=== PATIENT | female | born 1970 | race Caucasian/White ===

== ENCOUNTER → 2020-04-29 10:35 | Outpatient (CLI) | payer BC, SELFPAY ==
--- NOTE | ~2020-04-29 | MM_ITS ---
EXAMINATION: MM screening ludivina BI w dolores HISTORY: Screening mammogram TECHNIQUE: Craniocaudal and mediolateral oblique 3-D tomosynthesis images were obtained and synthetic 2-D images were generated. CAD analysis was submitted and interpreted. COMPARISON: 12/12/2018, 12/05/2017 bilateral digital screening mammogram examinations 05/07/2017 diagnostic right digital mammogram and complete right breast ultrasound BREAST PARENCHYMAL COMPOSITION: There are scattered areas of fibroglandular density. FINDINGS: There is no evidence of suspicious mass, calcification, or architectural distortion to sugg est malignancy in either breast. There has been no suspicious interval change. IMPRESSION: 1. No mammographic evidence of malignancy. 2. Recommend routine screening mammography in one year. BI-RADS Category 1: Negative Reviewed, dictated and finalized at location A.
== END ==
PROVIDERS: Visit Provider Nurse Practitioner
DX: Z12.31 Encounter for screening mammogram for malignant neoplasm of breast (principal)
CPT/HCPCS: 77063; 77067

== ENCOUNTER → 2021-05-12 13:34 | Outpatient (CLI) | payer OTHER, SELFPAY ==
--- NOTE | ~2021-05-12 | MM_ITS ---
EXAMINATION: MM screening ludivina BI w dolores HISTORY: Screening TECHNIQUE: Craniocaudal and mediolateral oblique 3-D tomosynthesis images were obtained and synthetic 2-D images were generated. CAD analysis was submitted and interpreted. COMPARISON: Comparison to multiple prior studies sequentially, with oldest reviewed study dated 11/08. BREAST PARENCHYMAL COMPOSITION: The breasts are heterogenously dense, which may obscure small masses FINDINGS: There is no evidence of suspicious mass, calcification, or architectural distortion to sugg est malignancy in either breast. There has been no suspicious interval change. IMPRESSION: 1. No mammographic evidence of malignancy. 2. Recommend routine screening mammography in one year. BI-RADS Category 1: Negative Reviewed, dictated and finalized at location A.
== END ==
PROVIDERS: PCP Family Medicine; Visit Provider Nurse Practitioner
DX: Z12.31 Encounter for screening mammogram for malignant neoplasm of breast (principal)
CPT/HCPCS: 77063; 77067

== ENCOUNTER → 2022-06-15 13:09 | Outpatient (CLI) | payer OTHER, SELFPAY ==
--- NOTE | ~2022-06-15 | MM_ITS ---
EXAMINATION: MM screening ludivina BI w dolores HISTORY: Screening TECHNIQUE: Craniocaudal and mediolateral oblique 3-D tomosynthesis images were obtained and synthetic 2-D images were generated. CAD analysis was submitted and interpreted. COMPARISON: Comparison to multiple prior studies sequentially, with oldest reviewed study dated 05/07. BREAST PARENCHYMAL COMPOSITION: The breasts are heterogeneously dense, which may obscure small masses FINDINGS: There is no evidence of suspicious mass, calcification, or architectural distortion to sugg est malignancy in either breast. There has been no suspicious interval change. IMPRESSION: 1. No mammographic evidence of malignancy. 2. Recommend routine screening mammography in one year. BI-RADS Category 1: Negative Reviewed, dictated and finalized at location A.
== END ==
PROVIDERS: PCP Family Medicine; Visit Provider Nurse Practitioner
DX: Z12.31 Encounter for screening mammogram for malignant neoplasm of breast (principal)
CPT/HCPCS: 77063; 77067

== ENCOUNTER → 2023-05-10 09:08 | Outpatient (CLI) | payer OTHER, SELFPAY ==
--- NOTE | ~2023-05-10 | MMUS_ITS ---
EXAMINATION: MM diagnostic ludivina BI w dolores, US breast RT complete HISTORY: Right upper outer quadrant breast thickening TECHNIQUE: Bilateral full field and right spot compression ML, MLO and CC 3-D tomosynthesis images we re performed and synthetic 2-D images were generated. CAD analysis was submitted and interpreted. Hig h resolution complete right breast ultrasound examination including all 4 quadrants and subareolar ar ea was performed. COMPARISON: 06/2022, 05/12/2021, 04/29/2020 bilateral screening mammogram examinations BREAST PARENCHYMAL COMPOSITION: The breasts are heterogeneously dense, which may obscure small masses . FINDINGS: MAMMOGRAPHIC FINDINGS:, Probably benign. Six-month targeted right breast ultrasound follow-up is bailey mmended. Subareolar area: Approximately 2 x 4.5 mm simple cyst Chronic mild fibroglandular asymmetry. Chronic punctate and small circular microcalcifications, prima rily on the right. No malignant calcification is evident. No suspicious mass or architectural distort ion or significant new or developing density is detected. ULTRASOUND: There is no evidence of suspicious mass or shadowing in the area of clinical complaint of thickening at 10:00--11:00 8 cm from the nipple, upper outer quadrant. 8:00 7 cm from nipple: Circumscribed 3.7 x 3.3 mm hypoechoic lesion without internal vascularity or p osterior shadowing IMPRESSION: 1. Probably benign findings 2. Six-month targeted right breast ultrasound follow-up 8:00 7 cm from nipple is recommended BI-RADS category 3, probably benign findings. Reviewed, dictated and finalized at location A. IMPRESSION: 1. Probably benign findings 2. Six-month targeted right breast ultrasound follow-up 8:00 7 cm from nipple i s recommended BI-RADS category 3, probably benign findings.
== END ==
PROVIDERS: PCP Family Medicine; Visit Provider Nurse Practitioner
DX: N63.10 Unspecified lump in the right breast, unspecified quadrant (principal); R92.8 Other abnormal and inconclusive findings on diagnostic imaging of breast
CPT/HCPCS: 76641; 77062; 77066; G0279

== ENCOUNTER → 2023-08-30 09:56 | Outpatient (CLI) | payer OTHER, SELFPAY ==
--- NOTE | ~2023-08-30 | DEXA_ITS ---
Bone Density Report Name: Kimberly Mixon Age: 53 Sex: Female Ethnicity: White Date of : 1970 Indication: postmenopausal; screening for osteoporosis; hysterectomy; Referring Provider: YANDY, PIERO Crockett Study: Bone densitometry was performed. Exam Date: August 30, 2023 Accession number: [id number] Bone Density: Region BMD T-score Z-score Classification AP Spine (L1, L4) 1.152 1.0 1.9 Normal Femoral Neck (Left) 0.855 0.1 0.9 Normal Total Hip (Left) 0.924 -0.1 0.4 Normal Femoral Neck (Right) 0.795 -0.5 0.4 Normal Total Hip (Right) 0.928 -0.1 0.4 Normal Total Hip Mean 0.926 -0.1 0.4 Normal World Health Organization criteria for BMD impression classify patients as: Normal (T-score at or above -1.0), Osteopenia (T-score between -1.0 and -2.5), or Osteoporosis (T-score at or below -2.5). 10-year Fracture Risk: FRAX not reported because: All T-scores for Spine Total, Hip Total, Femoral Neck at or above -1.0 Clinical Information Provided by Patient: Has used the following medications: HRT (i.e. estrogen/hormone therapy), HOLLIEV Has the following medical conditions: Hysterectomy Patient maximum height was 65 Menopause Age: 33 Onset of menses at age 16 Number of children 2 Missed period for more than 6 months in a row Impression: The patient has normal bone mass. Discussion: BONE DENSITY IS ABOVE THE MINIMUM DESIRABLE LEVEL AT ALL SKELETAL SITES TESTED. This patient?s bone mineral density is above the minimum desirable level (T-score -1.0 or better) at all sites measured. The patient should follow a healthful lifestyle (good nutrition with adequate calcium and vitamin D, and appropriate weight-bearing exercise). Follow-Up: Consider repeating this study in 5 years or sooner if there is some new clinical indication. Reported by: ANJEL on 08/30/2023 11:36:00 AM. Reviewed, dictated and finalized at location ATristan BERGERON
== END ==
PROVIDERS: PCP Nurse Practitioner; Visit Provider Nurse Practitioner
DX: Z13.820 Encounter for screening for osteoporosis (principal); Z78.0 Asymptomatic menopausal state
CPT/HCPCS: 77080

== ENCOUNTER 2023-11-15 09:14 | Outpatient (CLI) | payer OTHER, SELFPAY ==
--- NOTE | ~2023-11-15 | MMUS_ITS ---
EXAMINATION: MM diagnostic ludivina RT w dolores, US breast RT limited HISTORY: Palpable right breast abnormality. TECHNIQUE: Additional 3-D tomosynthesis images of the right breast were performed and synthetic 2-D i mages were generated. CAD analysis was submitted and interpreted. High resolution Limited right breas t ultrasound was performed. COMPARISON: Comparison to multiple prior studies sequentially, with oldest reviewed study dated 12/05. BREAST PARENCHYMAL COMPOSITION: Dense: The breasts are heterogeneously dense, which may obscure small masses FINDINGS: MAMMOGRAPHIC FINDINGS: There are no suspicious masses, calcifications or architectural distortion in the right breast to sug gest malignancy. ULTRASOUND: Limited right breast ultrasound: Normal heterogeneous echotexture without focal solid or cystic mass. IMPRESSION: 1. No evidence for malignancy in the right breast. 2. Routine yearly screening mammogram and regular clinical breast examination are recommended. BI-RADS Category 1: Negative Reviewed, dictated and finalized at location A. IMPRESSION: 1. No evidence for malignancy in the right breast. 2. Routine yearly screening mammogram and regular clinical breast examination a re recommended. BI-RADS Category 1: Negative
== END 2023-11-15 09:15 ==
PROVIDERS: PCP Nurse Practitioner; Visit Provider Obstetrics & Gynecology Gynecology
DX: R92.8 Other abnormal and inconclusive findings on diagnostic imaging of breast (principal)
CPT/HCPCS: 76642; 77061; 77065; G0279

== ENCOUNTER 2025-01-18 13:03 | Inpatient (IN) | payer OTHER, SELFPAY ==
[2025-01-18] VITALS (25 sets, daily range): BP systolic 86–112; BP diastolic 54–78; PULSE 98–133; RESP 12–54; TEMP 36.5–38.9; O2SAT 83–100; BMI 22.0
--- NOTE | ~2025-01-18 | XR_ITS ---
XR chest 1V portable Ordering provider: Vipul Domingo MD History: 54 years Female with . pneumonia . Comparison: January 29, 2025 FINDINGS: MEDIASTINUM: The cardiac silhouette is not enlarged. Nasogastric tube is seen extending to the area of the stomach. LUNGS: Bibasilar and perihilar pneumonia is seen. No effusions or pneumothorax. OTHER: No free air under the diaphragm. Degenerative changes of the spine. IMPRESSION: Bibasilar and perihilar pneumonia. No significant change from previous examination. Reviewed, dictated and finalized at location A. IMPRESSION: Bibasilar and perihilar pneumonia. No significant change from previous examinat ion.
--- NOTE | ~2025-01-18 | XR_ITS ---
Portable chest x-ray Comparison: None Clinical History: Shortness of breath Findings: There is patchy airspace disease the lung bases and left perihilar region. Cardiomediasti nal silhouette is stable. Bones and soft tissues are unremarkable. Impression: Patchy airspace disease at the lung bases and left perihilar region. Correlate for pulmonary edema ve rsus infection. Reviewed, dictated and finalized at location . Impression: Patchy airspace disease at the lung bases and left perihilar region. Correlate for pulmonary edema versus infection.
--- NOTE | ~2025-01-18 | XR_ITS ---
MODIFIED ESOPHAGRAM HISTORY: Reassess dysphagia prior to planned transesophageal echocardiography TECHNIQUE: Modified barium esophagram was performed on 01/29/2025. I administered fluoroscopy and perf ormed the exam with speech pathologist. Patient was seated for lateral fluoroscopic imaging for jose luis stion of thin liquids, pudding, solids and quantified amounts, followed by thin liquids in uncontroll ed amounts. This was recorded on tape. A single fluoroscopic spot image was also recorded. The DAP fo r this procedure was 2.115 Gycm2. The amount of fluoroscopy time used during this procedure was 3.4 m inutes. FINDINGS: Oral stage: Adequate function. Pharyngeal stage: Reduced laryngeal elevation and adduction. Reduced tongue base retraction and phary ngeal squeeze. There is vallecular, piriform sinus and pharyngeal wall residue. Laryngeal penetration and aspiration.. Cervical/esophageal stage: Adequate function. IMPRESSION: Pharyngeal dysphagia with laryngeal penetration and aspiration. Please correlate with sp eech pathologist findings and specific feeding recommendations. Reviewed, dictated and finalized at location B. IMPRESSION: Pharyngeal dysphagia with laryngeal penetration and aspiration. Pl ease correlate with speech pathologist findings and specific feeding recommenda tions.
--- NOTE | ~2025-01-18 | XR_ITS ---
XR chest ET placement Ordering provider: Maxi Macedo MD History: 54 years Female with . Portable . Comparison: January 18, 2025 FINDINGS: MEDIASTINUM: The cardiac silhouette is not enlarged. Endotracheal tube with the tip above the clarke by about 3.2 cm. Nasogastric tube extending to the stomach. LUNGS: No effusions or pneumothorax. Bibasilar opacification is seen suggestive of atelectasis versus pneumonia. OTHER: No free air under the diaphragm. IMPRESSION: Bilateral basal pneumonia. Pulmonary edema cannot be excluded although less likely. Reviewed, dictated and finalized at location A. IMPRESSION: Bilateral basal pneumonia. Pulmonary edema cannot be excluded although less lik anette.
--- NOTE | ~2025-01-18 | XR_ITS ---
Portable chest x-ray Comparison: 01/19/2025 Clinical History: Respiratory failure Findings: Endotracheal tube, NG tube, and right IJ line remain in place. Extensive bilateral pulmona ry consolidation present, sparing the lung apices. Possible minimal left pleural effusion. Cardiomed iastinal silhouette is stable. Bones and soft tissues are unremarkable. Impression: Extensive bilateral airspace consolidation. Correlate for pulmonary edema versus bilateral pneumonia. Minimal left pleural effusion. Stable support tubes. Reviewed, dictated and finalized at [facility]. Impression: Extensive bilateral airspace consolidation. Correlate for pulmonary edema versu s bilateral pneumonia. Minimal left pleural effusion. Stable support tubes.
--- NOTE | ~2025-01-18 | MR_ITS ---
EXAMINATION: MR cervical spine wo con DATE: 01/27/2025 14:26 INDICATION: Right foot drop TECHNIQUE: Magnetic resonance imaging (MRI) of the cervical spine was performed without intravenous c ontrast. Sequences included sagittal T2-weighted FSE, sagittal T2-weighted FS FSE, sagittal T1-weight ed FSE, axial MERGE and axial T2-weighted FSE. COMPARISON: 12/28 FINDINGS: Bone alignment is normal. Vertebral body heights are normal. Bone marrow signal intensity is normal . Intervertebral disc heights are normal. Cord signal intensity is normal. 9 mm T2 hyperintense right thyroid nodule. Cervical soft tissues are otherwise unremarkable. The following disc levels are spec ifically discussed: C2-C3: Disc is mildly bulging. There is mild left and moderate right uncovertebral joint osteoarthrit is. There is moderate right and severe left facet joint osteoarthritis. There is mild right neural fo raminal stenosis. There is no central canal stenosis. C3-C4: Disc is bulging. There is mild bilateral uncovertebral joint osteoarthritis. There is moderate left and severe right facet joint osteoarthritis. There is mild right neural foraminal stenosis. The re is mild central canal stenosis. C4-C5: Disc is bulging. There is moderate bilateral, right greater than left uncovertebral joint oste oarthritis. There is moderate left and severe right facet joint osteoarthritis. There is mild right n eural foraminal stenosis. There is mild central canal stenosis. C5-C6: Disc is bulging with annular fissure. There is moderate bilateral, right greater than left unc overtebral joint osteoarthritis. There is mild left and severe right facet joint osteoarthritis. Ther e is mild right neural foraminal stenosis. There is mild central canal stenosis. C6-C7: Disc is bulging with annular fissure. There is moderate right and moderate left uncovertebral joint osteoarthritis. There is mild bilateral facet joint osteoarthritis. There is minimal left neura l foraminal stenosis. There is mild central canal stenosis. C7-T1: The disc does not extend beyond the endplate margin. There is no uncovertebral joint osteoarth ritis. There is moderate left and mild right facet joint osteoarthritis. There is no neural foraminal stenosis. There is no central canal stenosis. IMPRESSION: 1. Mild cervical spondylosis. Reviewed, dictated and finalized at location B.
--- NOTE | ~2025-01-18 | CT_ITS ---
Non-contrast Head CT History: Encephalopathy Technique: Axial non-contrast imaging of the brain was performed. Dose reduction technique was used on this scan by utilizing automated exposure control and iterative reconstruction technique. The dose -length product (DLP) was 605.33 mGy-cm. Findings: There is no evidence of intracranial hemorrhage, mass lesion, or acute infarct. Brain par enchyma appears normal. The ventricles and subarachnoid spaces are normal in size. The calvarium ap pears normal. The visualized paranasal sinuses and mastoid air cells are clear. Impression: No significant abnormality seen. Reviewed, dictated and finalized at location . Impression: No significant abnormality seen.
--- NOTE | ~2025-01-18 | XR_ITS ---
MODIFIED ESOPHAGRAM HISTORY: Recent intubation TECHNIQUE: Modified barium esophagram was performed on 02/02/2025. I administered fluoroscopy and perf ormed the exam with speech pathologist. Patient was seated for lateral fluoroscopic imaging for jose luis stion of thin liquids, pudding, solids and quantified amounts, followed by thin liquids in uncontroll ed amounts. This was recorded on tape. A single fluoroscopic spot image was also recorded. The DAP fo r this procedure was 1.444 Gycm2. The amount of fluoroscopy time used during this procedure was 2.4 m inutes. FINDINGS: Dobbhoff type nasoenteric feeding tube in expected position. Oral stage: Adequate function. Pharyngeal stage: Reduced laryngeal elevation and tongue base retraction. Mild vallecular and pirifor m sinus residue which cleared with dry swallows. Laryngeal penetration without aspiration.. Cervical/esophageal stage: Adequate function. IMPRESSION: Pharyngeal dysphagia with laryngeal penetration without aspiration. Please correlate wit h speech pathologist findings and specific feeding recommendations. Reviewed, dictated and finalized at location A. IMPRESSION: Pharyngeal dysphagia with laryngeal penetration without aspiration. Please correlate with speech pathologist findings and specific feeding recomm endations.
--- NOTE | ~2025-01-18 | XR_ITS ---
XR chest 1V portable 01/23/2025 05:39 Indication: Acute respiratory failure. Pneumonia. Procedure: AP portable chest Comparison: Comparison to multiple prior studies sequentially, with oldest reviewed study dated 01/19. Findings: Endotracheal tube tip 2.6 cm above the clarke. Right IJ central line tip the SVC. NG tube t ip near the gastroesophageal junction. Recommend advancement. Stable pulmonary edema. Possible small left effusion. No pneumothorax. Impression: 1: Stable pulmonary edema. 2: NG tube tip near the gastroesophageal junction. Recommend advancement. Reviewed, dictated and finalized at location B. Impression: 1: Stable pulmonary edema. 2: NG tube tip near the gastroesophageal junction. Recommend advancement.
--- NOTE | ~2025-01-18 | MR_ITS ---
EXAM: MR cervical spine wo con TECHNIQUE: Multi-planar multi-sequence imaging of the cervical spine was performed without intravenou s contrast. FINDINGS: SPINAL CORD: Normal. VERTEBRAL BODY AND INTERVERTEBRAL DISC: No fracture or spondylolisthesis. Vertebral body height is ma intained. Intervertebral disks are normal. C2-3 to C4-5: No disc bulge, spinal canal stenosis or neuroforaminal narrowing. C3-4: Posterior disc osteophyte complex with minimal spinal canal stenosis. No significant neural for aminal narrowing. C4-5: Posterior disc osteophyte complex with mild spinal canal stenosis. No significant neural forami nal narrowing. C5-6: Posterior disc osteophyte complex with mild spinal canal stenosis. No significant neural forami nal narrowing. C6-7 and C7-T1: No disc bulge, spinal canal stenosis or neural foraminal narrowing. OTHER: Visualized posterior fossa appears within normal limits. IMPRESSION: Posterior disc osteophyte complex causing mild spinal canal stenosis at C4-5 and C5-6. Reviewed, dictated and finalized at location A. IMPRESSION: Posterior disc osteophyte complex causing mild spinal canal stenosis at C4-5 an d C5-6.
--- NOTE | ~2025-01-18 | MR_ITS ---
EXAMINATION: MR thoracic spine wo con DATE: 01/27/2025 14:26 INDICATION: Right foot drop TECHNIQUE: Magnetic resonance imaging (MRI) of the thoracic spine was performed without intravenous c ontrast. Sagittal localizer T1-weighted FSE of the cervicothoracic spine was obtained. Thoracic spine sequences included sagittal T2-weighted FSE, sagittal T1-weighted SE, Sagittal T2-weighted FS FSE, a nd axial T2-weighted FSE. COMPARISON: None FINDINGS: 15 degrees thoracic levoscoliosis. Sagittal alignment is normal. Vertebral body heights are normal. T 1 hyperintense hemangioma at T11. Otherwise normal marrow signal.Mild disc height loss at T9-T10.This are minimally bulging [id number] and L1-L2. Thoracic discs do not extend beyond the endplate margins. No central canal stenosis. There is multilevel mild bilateral thoracic facet osteoarthritis. Only min imal neural foraminal stenosis at a few levels in the mid to upper thoracic spine. There is normal sp inal cord signal. Paravertebral soft tissues are unremarkable. There is consolidation in the bilatera l lower lobes which could represent atelectasis or pneumonia. IMPRESSION: 1. 15 degrees thoracic levoscoliosis with mild spondylosis. 2. Consolidation in the bilateral lower lobes which could represent atelectasis or pneumonia. Reviewed, dictated and finalized at location B.
--- NOTE | ~2025-01-18 | XR_ITS ---
Portable chest x-ray Comparison: 01/23/2025 Clinical History: Respiratory failure, pneumonia Findings: Endotracheal tube, NG tube, and right IJ line are in place. Extensive bibasilar and perihi lar airspace disease again present, possibly minimally improved. Cardiomediastinal silhouette is sta ble. Bones and soft tissues are unremarkable. Impression: Extensive bibasilar and perihilar airspace disease bilaterally, probably minimally improved. Correlat e for pulmonary edema versus pneumonia. Support tubes, as above. Reviewed, dictated and finalized at location M. Impression: Extensive bibasilar and perihilar airspace disease bilaterally, probably minima lly improved. Correlate for pulmonary edema versus pneumonia. Support tubes, as above.
--- NOTE | ~2025-01-18 | CT_ITS ---
CTA chest PE protocol Ordering provider: Maxi Macedo MD History: 54 years Female with . sob . Comparison: None. Technique: CT angiogram chest was performed following timed intravenous injection of contrast. Thin s lice axial images and reformatted coronal images were obtained. Three dimensional reformatted images of the chest were also obtained using a [id number] workstation. . Automated exposure control and iterati ve reconstruction technique were employed. The dose-length product was 386.55 mGy-cm. 100 mL Omnipaqu e 350 was given IV. Findings: Endotracheal tube and nasogastric tube are noted. PULMONARY ARTERIES: No pulmonary embolus. VISUALIZED THORACIC INLET: Normal. MEDIASTINUM: Aorta/coronary arteries: Mild atheromatous disease. Heart/other: The heart is not enlarged. Lymph nodes: No mediastinal or hilar adenopathy. Small prevascular lymph nodes are noted. LUNGS: Bilateral lower lobe and lingular pneumonia is noted. Pneumonia in the right upper lobe posteriorly i s also seen. Minimal consolidation also seen in the middle lobe. No pulmonary nodules or masses. No e ffusions. No pneumothorax. VISUALIZED UPPER ABDOMEN: Fat infiltration of the liver. Status post cholecystectomy. Otherwise, the visualized upper abdomen is normal. MUSCULOSKELETAL: Soft tissues: The superficial soft tissues are normal. Bones: Age appropriate degenerative changes of the spine. IMPRESSION: 1. No pulmonary embolism. 2. Bilateral pneumonia in the lower lobes. Pneumonia in the lingula. Minimal changes of pneumonia in the right middle lobe. Pneumonia in the right upper lobe posteriorly. Follow-up to resolution is adv ised. Reviewed, dictated and finalized at location A. IMPRESSION: 1. No pulmonary embolism. 2. Bilateral pneumonia in the lower lobes. Pneumonia in the lingula. Minimal c hanges of pneumonia in the right middle lobe. Pneumonia in the right upper lobe posteriorly. Follow-up to resolution is advised.
--- NOTE | ~2025-01-18 | XR_ITS ---
Portable chest x-ray Comparison: 01/20/2025 Clinical History: Respiratory failure Findings: Endotracheal tube, NG tube, and right IJ line remain in place. Extensive airspace consolid ation and present at the lower lobes and perihilar regions. Probable minimal left pleural effusion. Cardiomediastinal silhouette is stable. Bones and soft tissues are unremarkable. Impression: Stable extensive bilateral airspace consolidation. Correlate for moderate to advanced pulmonary edema versus bilateral pneumonia. Minimal left pleural effusion. Stable support tubes. Reviewed, dictated and finalized at [facility]. Impression: Stable extensive bilateral airspace consolidation. Correlate for moderate to ad vanced pulmonary edema versus bilateral pneumonia. Minimal left pleural effusion. Stable support tubes.
--- NOTE | ~2025-01-18 | XR_ITS ---
Portable chest x-ray Comparison: 01/18/2025 at 2:42 PM Clinical History: Line placement Findings: Endotracheal tube, NG tube, and right IJ line are in satisfactory positions. No pneumothor ax. Extensive bibasilar and perihilar consolidation and present. Cardiomediastinal silhouette is sta ble. Bones and soft tissues are unremarkable. Impression: Support tubes, as above. No pneumothorax. Stable extensive bibasilar and perihilar airspace consolidation. Correlate for pulmonary edema versus bilateral pneumonia. Reviewed, dictated and finalized at [facility]. Impression: Support tubes, as above. No pneumothorax. Stable extensive bibasilar and perihilar airspace consolidation. Correlate for pulmonary edema versus bilateral pneumonia.
--- NOTE | ~2025-01-18 | MR_ITS ---
EXAM: MR lumbar spine wo con - 02/01/2025 12:15 CDT History: 54 years old Female with Persistent right foot drop TECHNIQUE: MRI of the lumbar spine were acquired without intravenous contrast. COMPARISON: None available. FINDINGS: NUMBERING: Last fully formed disc space is designated L5-S1. BONES: Vertebral body height is preserved without compression deformity. Dextroscoliosis. Normal kelli ow signal. INTERVERTEBRAL DISCS: Multilevel disc desiccation. Intervertebral disc space narrowing at L2-3 and L3 -4. SOFT TISSUES: Normal. SPINAL CORD: Normal conus. Conus terminates at T12-L1. T12-L1: No significant disc bulge. Mild facet arthropathy and ligamentum flavum hypertrophy. No signi ficant spinal canal stenosis or neural foraminal narrowing. L1-L2: No significant disc bulge. Mild facet arthropathy and ligamentum flavum hypertrophy. No signif icant spinal canal stenosis or neural foraminal narrowing. L2-L3: Asymmetric disc bulge. Moderate facet arthropathy and ligamentum flavum hypertrophy. Mild spin al canal stenosis. Mild left neural foraminal narrowing. No significant right neural foraminal narrow ing. No significant stenosis of the lateral recess. L3-L4: Asymmetric disc bulge. Moderate facet arthropathy and ligamentum flavum hypertrophy. Mild spin al canal stenosis. Mild left neural foraminal narrowing. No significant right neural foraminal narrow ing. No significant stenosis of the lateral recess. L4-L5: No significant disc bulge. Mild facet arthropathy and ligamentum flavum hypertrophy. No signif icant spinal canal stenosis or neural foraminal narrowing. L5-S1: No significant disc bulge. Mild facet arthropathy and ligamentum flavum hypertrophy. No signif icant spinal canal stenosis or neural foraminal narrowing. IMPRESSION: Asymmetric disc bulges at L2-3 and L3-4 along with facet arthropathy causing mild spinal canal stenos is and mild left neural foraminal narrowing. Correlate with clinical distribution of symptoms. Reviewed, dictated and finalized at location A. IMPRESSION: Asymmetric disc bulges at L2-3 and L3-4 along with facet arthropathy causing mi ld spinal canal stenosis and mild left neural foraminal narrowing. Correlate wi th clinical distribution of symptoms.
--- NOTE | ~2025-01-18 | XR_ITS ---
Portable chest x-ray Comparison: 01/26/2025 Clinical History: Pneumonia Findings: Small left pleural effusion and possible minimal right pleural effusion are present. There is bilateral lower lobe consolidation, left worse than right. Cardiomediastinal silhouette is stabl e. Bones and soft tissues are unremarkable. Impression: Bilateral lower lobe consolidation, left worse than right. Findings are suspicious for bilateral pneu monia versus possibly pulmonary edema/atelectasis. Small left pleural effusion and minimal right pleural effusion. Reviewed, dictated and finalized at location . Impression: Bilateral lower lobe consolidation, left worse than right. Findings are suspici ous for bilateral pneumonia versus possibly pulmonary edema/atelectasis. Small left pleural effusion and minimal right pleural effusion.
--- NOTE | ~2025-01-18 | CT_ITS ---
CLINICAL INDICATION: Shortness of breath, pneumonia suspected clinically COMPARISON: 01/18/2025 Reference is made to multiple plain film evaluations of the chest dated and dating back to 01/20/2025. TECHNIQUE: Multiple contiguous axial images of the chest was performed without the administration of intravenous contrast. This CT examination was performed utilizing dose reduction techniques. DLP: 124 mGy-cm FINDINGS/OBSERVATIONS: Interval extubation and removal of the orogastric tube with compared with previous study. No LUNG: Bibasilar consolidation, right greater than left. Patchy groundglass opacification within the bilateral pulmonary tomi, right greater than left. Cavita tion is now identified within the lingula, with an intracavitary nodule. Cavitation is also now identified within the right middle lobe. Cavitation is an interval change from previous examination. HEART: The heart is of normal size, without pericardial effusion. MEDIASTINUM: Limited evaluation without intravenous contrast. SOFT TISSUES OF THE CHEST: Unremarkable. BONES OF THE CHEST: No acute fracture. No lytic or blastic lesions are identified. UPPER ABDOMEN: Gaseous distention of the stomach. The gallbladder is surgically absent. IMPRESSION: Interval progression of multifocal consolidation within the bilateral lung martini, now demonstrating cavitation with intracavitary nodule in the lingula for which the differential diagnosis is broad but includes reactivated tuberculosis, aspergillosis, autoimmune etiology and infection versus septic pu lmonary emboli (thought to be less likely secondary to cavitary distribution) Reviewed, dictated and finalized at location A. IMPRESSION: Interval progression of multifocal consolidation within the bilateral lung fiel ds, now demonstrating cavitation with intracavitary nodule in the lingula for w hich the differential diagnosis is broad but includes reactivated tuberculosis, aspergillosis, autoimmune etiology and infection versus septic pulmonary embol i (thought to be less likely secondary to cavitary distribution)
--- NOTE | ~2025-01-18 | XR_ITS ---
EXAMINATION: XR fl Dobhoff insert/rad w img DATE: 01/30/2025 09:51 INDICATION: Dobbhoff tube placement required to initiate tube feeding TECHNIQUE: A Dobbhoff type feeding tube was advanced into the duodenum utilizing intermittent fluoroscopy. Final image demonstrates the feeding tube in position with the weighted tip in the body of the stomach. Th e tube was flushed with 10 mL sterile saline and fixed to the nares with adhesive tape. A single fluo roscopic image was recorded. The amount of fluoroscopy time used during this procedure was 3.4 minute s. Total DAP was 31.641 mGycm^2 There were no immediate complications. FINDINGS/IMPRESSION: Successful fluoroscopy-guided Dobbhoff feeding tube placement with distal tip in the stomach. Tube wa s unable be advanced into the duodenum and was left with sufficient redundancy in the stomach to allo w for additional passive advancement with peristalsis. Reviewed, dictated and finalized at location A.
--- NOTE | ~2025-01-18 | XR_ITS ---
XR abdomen gastric tube insert Ordering provider: Alan Geronimo MD History: . ng placement . Comparison: None. FINDINGS/impression: Nasogastric tube is seen with the tip in the fundus of the stomach. Contrast is seen in the colon. Reviewed, dictated and finalized at location A.
--- NOTE | ~2025-01-18 | XR_ITS ---
Portable chest x-ray Comparison: 01/24/2025 Clinical History: Respiratory failure Findings: Endotracheal tube, NG tube, and right IJ line are in place. Small left pleural effusion pr obably present. Probable mild interval improvement in bibasilar and perihilar airspace disease. Card iomediastinal silhouette is stable. Bones and soft tissues are unremarkable. Impression: Probable mild improvement in bibasilar and bilateral perihilar airspace disease. Correlate for improv ing pneumonia or pulmonary edema. Minimal left pleural effusion. Stable support tubes. Reviewed, dictated and finalized at location . Impression: Probable mild improvement in bibasilar and bilateral perihilar airspace disease . Correlate for improving pneumonia or pulmonary edema. Minimal left pleural effusion. Stable support tubes.
--- NOTE | ~2025-01-18 | XR_ITS ---
Exam: Abdomen 1V HISTORY: og advancement COMPARISON: None. TECHNIQUE: Supine images of the lower chest and upper abdomen FINDINGS: Orogastric tube extends into the left upper quadrant and crosses the midline, presumably within the d istal stomach. IMPRESSION: Orogastric tube in good position and ready for immediate use. Reviewed, dictated and finalized at location A.
--- NOTE | ~2025-01-18 | XR_ITS ---
Portable chest x-ray Comparison: 01/25/2025 Clinical History: Pneumonia Findings: Right IJ line is unchanged. Small bilateral pleural effusions are present with bibasilar a nd perihilar airspace disease bilaterally. Cardiomediastinal silhouette is stable. Bones and soft ti ssues are unremarkable. Impression: Worsening bibasilar and bilateral perihilar airspace disease with small pleural effusions. Findings s uggest worsening pulmonary edema/atelectasis. Correlate clinically for pneumonia. Right IJ line in place. Reviewed, dictated and finalized at location M. Impression: Worsening bibasilar and bilateral perihilar airspace disease with small pleural effusions. Findings suggest worsening pulmonary edema/atelectasis. Correlate c linically for pneumonia. Right IJ line in place.
--- NOTE | ~2025-01-18 | MR_ITS ---
EXAMINATION: MR lumbar spine wo con DATE: 01/27/2025 14:27 INDICATION: Right foot drop TECHNIQUE: Magnetic resonance imaging (MRI) of the lumbar spine was performed without intravenous con trast. Sequences included sagittal T2-weighted FSE, sagittal T2-weighted FS FSE, sagittal T1-weighted FSE, and axial T2-weighted FSE. COMPARISON: None FINDINGS: 20 degrees lumbar dextroscoliosis. 2 mm retrolisthesis L3 on L4. Vertebral body heights are normal. T here is severe left-sided disc height loss at L2-L3, moderate left sided disc height loss at L3-L4 an d moderate right-sided disc height loss at L4-L5 with associated fibrofatty degenerative endplate felix nges at each level. Mild left-sided predominant disc height loss at L1-L2. The conus medullaris termi nates at L1. There is normal signal in the caudal spinal cord. Paravertebral soft tissues are unremar kable. The following disc levels are specifically discussed: T12-L1: Disc is mildly bulging. There is mild bilateral facet joint osteoarthritis. There is no neura l foraminal stenosis. There is normal central canal stenosis. L1-L2: Disc is mildly bulging. There is mild bilateral facet joint osteoarthritis. There is no neural foraminal stenosis. There is mild central canal stenosis. L2-L3: Disc is bulging with annular fissure. There is mild bilateral facet joint osteoarthritis. Ther e is mild left and minimal right neural foraminal stenosis. There is mild central canal stenosis. L3-L4: Disc is bulging with annular fissure and superimposed central to left paracentral disc extrusi on with disc material extending up to 5 mm caudal to the level of the superior endplate of L4. There is mild to moderate bilateral facet joint osteoarthritis. There is mild bilateral neural foraminal st enosis. There is mild central canal stenosis. L4-L5: Disc is bulging with annular fissure. There is moderate bilateral facet joint osteoarthritis. There is mild left and moderate right neural foraminal stenosis. There is mild central canal stenosis and mild narrowing of the right lateral recess. L5-S1: The disc does not extend beyond the endplate margin. There is mild bilateral facet joint osteo arthritis. There is no neural foraminal stenosis. There is no central canal stenosis. IMPRESSION: 1. . 20 degrees lumbar dextroscoliosis with severe spondylosis. Reviewed, dictated and finalized at location B.
--- NOTE | ~2025-01-18 | XR_ITS ---
Portable chest x-ray Comparison: 01/21/2025 Clinical History: Respiratory failure Findings: Endotracheal tube, NG tube, and right-sided line are in place. Extensive bilateral airspac e consolidation at the lower lobes and perihilar regions is again present, possibly minimally improve d in the right lung. Probable minimal left pleural effusion.. Cardiomediastinal silhouette is stable . Bones and soft tissues are unremarkable. Impression: Bilateral extensive airspace consolidation the lung bases and perihilar regions, with possible minima l improvement in the right lung. Correlate for pulmonary edema versus bilateral pneumonia. Minimal left pleural effusion. Stable support tubes. Reviewed, dictated and finalized at location . Impression: Bilateral extensive airspace consolidation the lung bases and perihilar regions , with possible minimal improvement in the right lung. Correlate for pulmonary edema versus bilateral pneumonia. Minimal left pleural effusion. Stable support tubes.
--- NOTE | ~2025-01-18 | XR_ITS ---
MODIFIED ESOPHAGRAM HISTORY: Dysphagia post extubation. TECHNIQUE: Modified barium esophagram was performed on 01/26/2025. I administered fluoroscopy and perf ormed the exam with speech pathologist. Patient was seated for lateral fluoroscopic imaging for jose luis stion of thin liquids, pudding, solids and quantified amounts, followed by thin liquids in uncontroll ed amounts. This was recorded on tape. A single fluoroscopic spot image was also recorded. The DAP fo r this procedure was 1.62 Gycm2. The amount of fluoroscopy time used during this procedure was 2.5 mi nutes. FINDINGS: Oral stage: Adequate function. Pharyngeal stage: Reduced laryngeal elevation. There is mild vallecular residue. There is laryngeal p enetration with clear liquids with one episode of aspiration on the initial swallow. With no subseque nt aspiration. Cervical/esophageal stage: Adequate function. IMPRESSION: Pharyngeal dysphagia with laryngeal penetration and one episode of aspiration on the init ial trial. Please correlate with speech pathologist findings and specific feeding recommendations. Reviewed, dictated and finalized at location A. IMPRESSION: Pharyngeal dysphagia with laryngeal penetration and one episode of aspiration on the initial trial. Please correlate with speech pathologist find ings and specific feeding recommendations.
--- NOTE | ~2025-01-18 | MR_ITS ---
EXAM: MR thoracic spine wo con - 02/01/2025 12:15 CDT CLINICAL HISTORY: 54 years old Female with persistent right foot drop TECHNIQUE: Multiplanar, multisequence magnetic resonance imaging of the thoracic spine is performed w ithout contrast. COMPARISON: None available. FINDINGS: The thoracic vertebral body alignment, heights, and signal intensities are within normal limits. The re is no significant disk bulge, and no spinal or foraminal stenosis identified. The thoracic cord i s of normal caliber and signal intensity. There is no evidence of tethered cord. No intraspinal or paraspinal mass is identified. IMPRESSION: MRI of the thoracic spine is within normal limits for age. Reviewed, dictated and finalized at location A.
--- NOTE | ~2025-01-18 | XR_ITS ---
EXAMINATION: XR chest ET placement Exam Date/Time: 01/18/2025 14:10 CDT HISTORY: post intubation Comparison: Same date at 1:29 PM. RESULT: Lines, tubes, and devices: Endotracheal tube terminating 3.8 cm above the clarke. Subdiaphragmatic N G tube, side port at the GE junction. Lungs and pleura: Patchy bilateral lower lung and left mid lung airspace disease, increased. Minimal right costophrenic angle blunting. Cardiomediastinal silhouette: Stable. Other: No acute osseous or upper abdominal finding. IMPRESSION: Endotracheal tube, in good position. Shallow NG tube, consider advancing by 6 cm. Worsening bilateral lower lung airspace disease, most likely representing worsening edema. Possible t race right pleural effusion. Infection/aspiration not excluded. Reviewed, dictated and finalized at location K. IMPRESSION: Endotracheal tube, in good position. Shallow NG tube, consider advancing by 6 cm. Worsening bilateral lower lung airspace disease, most likely representing worse randall edema. Possible trace right pleural effusion. Infection/aspiration not exc luded.
--- NOTE | 2025-01-18 13:10 | ECG_ITS ---
Test Date: 2025-01-18 13:13:37 Measurements Intervals [place] Rate: 133 P: 77 AR: 148 QRS: 18 QRSD: 97 T: 48 QT: 315 QTc: 470 Interpretive Statements SINUS TACHYCARDIA INCOMPLETE RIGHT BUNDLE BRANCH BLOCK MINIMAL Q WAVES- INFERIOR LEADS ABNORMAL ECG No previous ECG available for comparison Electronically Signed On 01-18-2025 13:20:34 CDT by Bert Ramirez D.O.
[2025-01-18 13:25] LABS: Glucose Point of Care 219 mg/dl (65-105)
--- NOTE | 2025-01-18 13:25 | CONSULT_PTH ---
PATIENT: Kimberly Mixon LOC: [id number] U#:[id number] AGE/SX: 54/F ROOM: 344 RE01/18/[address]: Promise Colon MD : 1970 BED: 01 DIS: 02/05/2025 SPEC #: [id number] RECD: 01/18/25 14:19 STATUS: LUIS ANGEL REQ #: [id number] NADEGE: 01/18/25 13:[address]: Maxi Macedo DEPT: [facility] Consult RECD BY: Rell Del Rio MLT, ([facility]) ENTERED: 01/18/25 14:21 SP TYPE: Consult OTHR DR: Suzan Davila, TUBE REPAIRER Tissues: A - Smear Procedures: Hematology Consult
[2025-01-18] MEDS: SODIUM CHLORIDE 0.9% IV 800 ML 999 ML IV CONT (13:38)
[2025-01-18] MEDS: SODIUM CHLORIDE 0.9% IV 1,000 ML 999 ML IV CONT (13:38)
[2025-01-18 13:40] LABS: Hematocrit 49.8 % (37.0-47.0); Hemoglobin 15.8 g/dL (12.0-15.0); Immature Platelet Fraction Pct 2.3 % (0.9-11.2); Mean Corpuscular HGB Conc 31.7 g/dl (32-36); Mean Corpuscular Hemoglobin 31.4 pg (26-34); Mean Platelet Volume 9.9 fl (7.4-10.4); Platelet Count Result 256 k/mm3 (150-375); Red Blood Count 5.03 M/mm3 (4.2-5.4); Red Cell Distribution Width 13.4 % (11.5-14.5); White Blood Count 10.3 K/mm3 (4.5-10.0)
[2025-01-18] MEDS: CEFEPIME 2 GM/NS 50 ML 2 GM/50 ML BAG IVPB ×2 (13:42→21:17)
[2025-01-18 13:49] LABS: INR 1.2; Prothrombin Time 15.4 Seconds (11.1-14.7)
--- NOTE | 2025-01-18 13:49 | PC.NURSE ---
ed respiratory at bedside for bi-pap initiation. pt unable to tolerate mask being placed. edp at bedside, aware of inability. edp recommending intubation, family aware
[2025-01-18 13:50] LABS: Alanine Aminotransferase 36 U/L (6-35); Albumin Level 4.5 g/dL (3.5-5.1); Alkaline Phosphatase 96 U/L (38-126); Aspartate Amino Transferase 56 U/L (14-36); Blood Urea Nitrogen 24 mg/dL (7-17); Calcium 10.5 mg/dL (8.4-10.2); Carbon Dioxide < 5 mmol/L (22-30); Chloride 102 mmol/L (98-107); Estimated CRCL calculation 33 ml/min; Estimated Glomerular Filt Rate 36; Glucose 236 mg/dL (65-110); Partial Thromboplastin Time 28.1 Seconds (22.3-36.8); Potassium 4.5 mmol/L (3.4-5.0); Sodium 140 mmol/L (137-145); Total Protein 8.9 g/dL (6.3-8.2)
--- NOTE | 2025-01-18 13:58 | PC.NURSE ---
20 mg Etomodate given IVP, 100mg Rocc given IVP for intubation. provider at the head of stretcher, respiratory at bedside
--- NOTE | 2025-01-18 14:03 | PCCCNOTE ---
Met with the pt's daughters, Liset Alonso and Slade. Stated they just flew home this morning from [place]. Stated they were on a cruise from [facility]. This morning on the way home the pt could barely speak or walk. Stated she refused to seek medical attention until they came home in the [place] area. Stated they landed at [facility] and drove straight to [facility] for care. 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 Denies a hx of Asthma and states they think she is allergic to a Septra based drug. Stated [facility] and her PCP is Dr. Rain in [facility]. Called [facility] at [phone] and had the pharmacist fax a list of her medication to the ED. Shared the list with the ED charge d/t the pt currently being intubated. Called the PCP at [phone] and requested a recent H&P to be faxed to the ED.-dash
[2025-01-18] MEDS: MIDAZOLAM 100MG/NS 100ML(*CRX) 100 MG/100 ML BAG IV CONT (14:12)
[2025-01-18] MEDS: FENTANYL 2,500MCG/NS250ML(*CRX 2,500 MCG/250 ML BAG 10 MCG IV CONT (14:14)
[2025-01-18 14:15] LABS: Band Neutrophils Percent 23 % (0-6); Lymphocytes Absolute Manual 1.13 K/mm3 (1.1-4.5); Lymphocytes Percent Manual 11 % (18-44); Neutrophils Percent Manual 45 % (46-73); Total Cells Counted 100
--- OUTSIDE RECORDS SUMMARY | 2025-01-18 14:15 | XMS_ITS | Clinical Summary ---
Author Organization [facility] Address [address] [place] [address] Care Team Providers Care Sleever Name Role Phone Unavailable Primary Care Provider Unavailabl e Source Comments [facility],non-owned Affiliates and Associated Physician Practices is amultiple site organization consisting of ambulatory clinics and hospital sitesin [place], [place], [place] and [place]. This disclosure is being madepursuant to the Care Everywhere program and may not contain all information available regarding this patient. 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 Gender Identity Not on file Sexual Orientation Not on file Plan of Treatment Health Maintenance Due Date Last Done Comments COLOGUARD (AGES 45-75) - COL ON CA SCREENING 1970 COLON MONITORING 1970 COLONOSCOPY - COLON CA SCREENING 1971 CT COLONOGRAPHY - COLON CA SCREENING 1970 Colorectal Cancer Screening 1970 FIT - COLON CA SCREENING 1971 FLEX SIG - COLON CA SCREENING 1970 LIPID TESTING 1970 MAMMOGRAM 1970 HIV SCREENING 1986 HEPATITIS C SCREENING 08/14/1989 DTAP/TDAP/TD VACCINES (1 - Tdap) 1990 HEPATITIS B VACCINE (1 of 3 - 19+ 3-dose series) 1990 PNEUMOCOCCAL VACCINE 50+ (1 of 1 - PCV) 2021 ZOSTER VACCINE (1 of 2) 2021 COVID-19 VACCINE ( - 2023-2 5 season) 2024 DEPRESSION SCREENING 08/12/2024 INFLUENZA VACCINE (Season Ended) 2025 HIB VACCINE Aged Out No longer eligi ble based on patient's age to complete this topic HPV VACCINE Aged Out No longer eligi ble based on patient's age to complete this topic MENINGOCOCCAL (Group B) VACC INE SHARED DECISION-MAKING Aged Out No longer eligibl e based on patient's age to complete this topic MENINGOCOCCAL GROUPS A/C/Y/W VACCINE Aged Out No longer eligible b ased on patient's age to complete this topic
[2025-01-18 14:16] LABS: Metamyelocytes Percent 2 %; Monocytes Absolute Manual 1.95 K/mm3 (0.1-0.90); Monocytes Percent Manual 19 % (3-9); Platelet Estimate Adequate (Adequate)
[2025-01-18 14:17] LABS: Burr Cells 1+; Schistocytes None Seen
[2025-01-18] MEDS: HYDROmorphone HCL INJ (*CRX) 2 MG/ML VIAL 1 MG IV PUSH (14:22)
[2025-01-18] MEDS: LORazepam INJ (*CRX) 2 MG/ML VIAL IV PUSH (14:23)
[2025-01-18 14:27] LABS: Influenza A QL RT-PCR Positive (Negative); Influenza B QL RT-PCR Negative (Negative); RSV RNA, RT-PCR. Negative (Negative); SARS-CoV-2 RNA PCR Negative (Negative)
[2025-01-18 14:33] LABS: CRP. > 45.0 mg/dL (<1.0)
--- NOTE | 2025-01-18 14:38 | PC.NURSE ---
pt in CT scan, O2 sat dropped to 65%, edp aware. moved from vent to manually bvm, o2 sat up to 94. stat chest x-ray ordered
[2025-01-18] MEDS: DOXYCYCLINE 100 MG/NS 100 ML 100 MG/100 ML BAG IVPB ×2 (14:46→22:19)
--- OUTSIDE RECORDS SUMMARY | 2025-01-18 14:59 | XMS_ITS | Referral Summary ---
Author Organization [facility] Address [address] [place] [address] Care Team Providers Care Asset Protection Officer Name Role Phone Aline Miller MD Unavailable [phone] Lv Rain MD Primary Care Provider [phone] Allergies Active Allergy Reactions Criticality Noted Date Comments Sulfa (Sulfonamide Antibiotics) Hives,Rash Medium 06/12 Medications metFORMIN XR (GLUCOPHAGE XR) 500 mg 24 hr tablet Take 1 tablet (500 mg total) by mouth 2 (two) times a day Active cyclobenzaprine (FLEXERIL) 10 mg tablet Take 1 tablet (10 mg total) by mouth 3 (three) times a day Active nabumetone (RELAFEN) 750 mg tablet Take 1 tablet (750 mg total) by mouth 2 (two) times a day Active spironolactone (ALDACTONE) 50 mg tablet Take 1 tablet (50 mg total) by mouth 2 (two) times a day Active atorvastatin (LIPITOR) 20 mg tablet Take 1 tablet (20 mg total) by mouth nightly Active empagliflozin (Jardiance) 10 mg tablet Take 1 tablet (10 mg total) by mouth daily 07/31/2019 Active metoprolol XL (TOPROL-XL) 50 mg extended release tablet Take 1 tablet (50 mg total) by mouth 2 (two) times a day 12/25/2023 Active Ozempic 2 mg/dose (8 mg/3 mL) pen injector injection 03/13/2024 Active finasteride (PROSCAR) 5 mg tablet TKAE 1/2 TABLET BY MOUTH DAILY 01/26/2024 Active multivitamin (MULTIPLE VITAMINS DAILY ORAL) Take 1 tablet by mouth daily Active omega 9-gty-lpp-fish oil (Fish OiL) 1,000 mg (120 mg-180 mg) capsule Take 1 capsule (1,000 mg total) by mouth daily Active Active Problems No known active problems Social History Tobacco Use Types Packs/Day Years Used Date Smoking Tobacco: Never Assessed Comments Unknown Sex and Gender Information Value Date Recorded Sex Assigned at Not on file Legal Sex Female 8:22 AM CDT Gender Identity Not on file Sexual Orientation Not on file Last Filed Vital Signs Vital Sign Reading Time Taken Comments Blood Pressure - - Pulse - - Temperature - - Respiratory Rate - - Oxygen Saturation - - Inhaled Oxygen Concentration - - Weight 62.6 kg (138 lb) 03/13/2024 11:04 AM CDT Height 160 cm (5' 3) 03/13/2024 11:04 AM CDT Body Mass Index 24.45 03/13/2024 11:04 AM CDT Plan of Treatment Not on file Procedures Procedure Name Priority Date/Time Associated Diagnosis Comments DIAGNOSTIC MAMMOGRAM BILATERAL W BIBI Schedule Routine, Read Routine (OP Routine) 03/13/2024 1:38 PM CDT Mass of right breast, unspecified quadrant from Last 3 Months or Most Recently Relevant to Health Maintenance Results * Diagnostic Mammogram Bilateral W Bibi (03/13/2024 1:38 PM CDT) Anatomical Region Laterality Modality Breast Bilateral Mammography 03/13/2024 2:04 PM CDT Impressions 03/13/2024 2:04 PM CDT No mammographic or sonographic evidence of malignancy. Clinical follow-up is recommended for the palpable abnormality in the RIGHT breast. OVERALL FINAL ASSESSMENT: BI-RADS Category 2: Benign. RECOMMENDATION: 1. Annual screening mammography is recommended. 2. Clinical follow-up is recommended. Electronically signed by: Aline Aldana M.D. Narrative 03/13/2024 2:04 PM CDT EXAMINATION: BILATERAL DIGITAL DIAGNOSTIC MAMMOGRAM INCLUDING CAD AND BILATERAL DIGITAL BREAST TOMOSYNTHESIS; RIGHT BREAST SONOGRAM HISTORY: 53-year-old female here for follow-up diagnostic imaging of the RIGHT breast recommended on outside consult imaging 01/07/2024, and she is also due for screening of the LEFT breast. She states that she has lost weight and 1st noticed the nontender palpable lump in the upper RIGHT breast after losing weight. COMPARISON: Multiple prior diagnostic and screening mammograms, most recently 11/15/2023 and dating back to 04/29/2020. Right breast ultrasound on 11/15/2023 and 05/10/2023 from outside institution. TECHNIQUE: Full field digital mammographic views of BOTH breasts were performed, including computer aided detection (CAD) and BILATERAL digital breast tomosynthesis (DBT). Directed ultrasound evaluation of the RIGHT breast was performed by a trained mosaic floor layer and by Dr. Aldana. BREAST PARENCHYMAL COMPOSITION: The breasts are heterogeneously dense, which may obscure small masses. MAMMOGRAM FINDINGS: Right breast: With additional imaging, asymmetry questioned in the central RIGHT breast on the craniocaudal projection does not persist and is most consistent with summation artifact. Focal asymmetry is noted adjacent to the palpable marker in the upper slightly outer RIGHT breast at middle depth although no distinct mass or architectural distortion is noted with spot compression. Left breast: No suspicious new mass, grouped microcalcification, or architectural distortion is seen. SONOGRAM FINDINGS: The region of the palpable abnormality, the 11 o'clock position, 8 cm from the nipple, dense fibroglandular tissue is noted on ultrasound. This region is mildly palpable and mobile. No suspicious mass or distortion is seen. It is thought that this is fibrous tissue that has become more palpable due to the patient's weight loss. Clinical follow-up is again recommended. In the o'clock position, 7 cm from the nipple, benign duct ectasia is seen which is thought to correspond to the small cystic mass 1st questioned on 05/10/2023 and is thought benign. In addition, mild skin thickening is noted along the inferior breast, noted in the 7:30 position of the RIGHT breast, but similar to the LEFT breast when ultrasound is performed for comparison. On clinical evaluation there is no abnormality visible abnormality on the skin surface and this is thought benign. Procedure Note Aline Aldana MD - 03/13/2024 EXAMINATION: BILATERAL DIGITAL DIAGNOSTIC MAMMOGRAM INCLUDING CAD AND BILATERAL DIGITAL BREAST TOMOSYNTHESIS; RIGHT BREAST SONOGRAM HISTORY: 53-year-old female here for follow-up diagnostic imaging of the RIGHT breast recommended on outside consult imaging 01/07/2024, and she is also due for screening of the LEFT breast. She states that she has lost weight and 1st noticed the nontender palpable lump in the upper RIGHT breast after losing weight. COMPARISON: Multiple prior diagnostic and screening mammograms, most recently 11/15/2023 and dating back to 04/29/2020. Right breast ultrasound on 11/15/2023 and 05/10/2023 from outside institution. TECHNIQUE: Full field digital mammographic views of BOTH breasts were performed, including computer aided detection (CAD) and BILATERAL digital breast tomosynthesis (DBT). Directed ultrasound evaluation of the RIGHT breast was performed by a trained mosaic floor layer and by Dr. Aldana. BREAST PARENCHYMAL COMPOSITION: The breasts are heterogeneously dense, which may obscure small masses. MAMMOGRAM FINDINGS: Right breast: With additional imaging, asymmetry questioned in the central RIGHT breast on the craniocaudal projection does not persist and is most consistent with summation artifact. Focal asymmetry is noted adjacent to the palpable marker in the upper slightly outer RIGHT breast at middle depth although no distinct mass or architectural distortion is noted with spot compression. Left breast: No suspicious new mass, grouped microcalcification, or architectural distortion is seen. SONOGRAM FINDINGS: The region of the palpable abnormality, the 11 o'clock position, 8 cm from the nipple, dense fibroglandular tissue is noted on ultrasound. This region is mildly palpable and mobile. No suspicious mass or distortion is seen. It is thought that this is fibrous tissue that has become more palpable due to the patient's weight loss. Clinical follow-up is again recommended. In the o'clock position, 7 cm from the nipple, benign duct ectasia is seen which is thought to correspond to the small cystic mass 1st questioned on 05/10/2023 and is thought benign. In addition, mild skin thickening is noted along the inferior breast, noted in the 7:30 position of the RIGHT breast, but similar to the LEFT breast when ultrasound is performed for comparison. On clinical evaluation there is no abnormality visible abnormality on the skin surface and this is thought benign. IMPRESSION: No mammographic or sonographic evidence of malignancy. Clinical follow-up is recommended for the palpable abnormality in the RIGHT breast. OVERALL FINAL ASSESSMENT: BI-RADS Category 2: Benign. RECOMMENDATION: 1. Annual screening mammography is recommended. 2. Clinical follow-up is recommended. Electronically signed by: Aline Aldana M.D. Lashawn Ngo WORK FORCE ADVISOR IMG MAMMO PROCEDURES Fin al Result from Last 3 Months or Most Recently Relevant to Health Maintenance Insurance [facility] PPO [facility] PPO Care Teams Asset Protection Officer Relationship Specialty Start Date End Date Lv Rain MD [address] [place] [address] PCP - General Family Medicine 12/30/23 Aline Miller MD [address] [address] Referring Physician Gynecology 12/27/23
--- OUTSIDE RECORDS SUMMARY | 2025-01-18 14:59 | XMS_ITS | Clinical Summary ---
Author Organization [facility] Address [address] [place] [address] Care Team Providers Care Law Reporter Name Role Phone Unavailable Primary Care Provider Unavailabl e Source Comments [facility],non-owned Affiliates and Associated Physician Practices is amultiple site organization consisting of ambulatory clinics and hospital sitesin [place], [place], [place] and [place]. This disclosure is being madepursuant to the Care Everywhere program and may not contain all information available regarding this patient. 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
--- OUTSIDE RECORDS SUMMARY | 2025-01-18 14:59 | XMS_ITS | Clinical Summary ---
Author Organization [facility] Address [address] [place] [address] Care Team Providers Care Senior Java Developer Name Role Phone Aline Miller MD Unavailable [phone] Lv Rain MD Primary Care Provider [phone] Allergies Active Allergy Reactions Criticality Noted Date [...] 1 tablet by mouth daily Active omega 7-hkt-cxo-fish oil (Fish OiL) 1,000 mg (120 mg-180 mg) capsule Take 1 capsule (1,000 mg total) by mouth daily Active Active Problems No known active problems Surgical History Surgery Date Site/Laterality Comments APPENDECTOMY CHOLECYSTECTOMY CYST REMOVAL right breast TONSILECTOMY, ADENOIDECTOMY, BILATERAL MYRINGOTOMY AND TUBES HYSTERECTOMY SECTION CYST REMOVAL left arm CYST REMOVAL tailbone Family History Medical History Relation Name Comments Breast cancer Father's Sister Leukemia Paternal Grandmother Ovarian cancer Paternal Grandmother Relation Name Status Comments Father's Sister Paternal Grandmother Social History Tobacco Use Types Packs/Day Years Used Date Smoking Tobacco: Never Assessed Comments Unknown Sex and Gender Information Value Date Recorded Sex Assigned at Not on file Legal Sex Female 8:22 AM CDT Gender Identity Not on file Sexual Orientation Not on file Obstetrics History Last Filed Vital Signs Vital Sign Reading Time Taken Comments Blood Pressure - - Pulse - - Temperature - - Respiratory Rate - - Oxygen Saturation - - Inhaled Oxygen Concentration - - Weight 62.6 kg (138 lb) 03/13/2024 11:04 AM CDT Height 160 cm (5' 3) 03/13/2024 11:04 AM CDT Body Mass Index 24.45 03/13/2024 11:04 AM CDT Plan of Treatment Health Maintenance Due Date Last Done Comments Colon Cancer Screening-Colonoscopy 1971 Depression Screening 1971 Hepatitis C Screening 1971 DTaP/Tdap/Td Vaccine (1 - Tdap) 1982 Hepatitis B Screening 1989 Regular Well Visit/Exam 18-64 1989 Covid-19 Vaccine (2023- season) 2024 05/04/2022, 07/13/2021, 11/11/2020, Additional history exists Breast Cancer Screening-Mammogram 03/13/2025 03/13/2024 Influenza Vaccine (Season Ended) 2025 05/24/2023, 05/04/2022, 06/10/2021, Additional history exists Zoster Vaccine Completed 01/18/2023, 11/16/2022 Pneumococcal vaccine <65 Aged Out No longer eligible based on patient's age to complete this topic Procedures Procedure Name Priority Date/Time Associated Diagnosis [...] RIGHT breast was performed by a trained signs cleaner and by Dr. Aldana. BREAST PARENCHYMAL COMPOSITION: [...] RIGHT breast was performed by a trained signs cleaner and by Dr. Aldana. BREAST PARENCHYMAL COMPOSITION: [...] signed by: Aline Aldana M.D. Lashawn Ngo NP IMG MAMMO PROCEDURES Fin al Result from Last 3 Months or Most Recently Relevant to Health Maintenance Insurance [facility] P[facility] P[facility] Care Teams Senior Java Developer Relationship Specialty Start Date End Date Lv Rain MD [address] [place] [address] PCP - General Family Medicine 12/30/23 Aline Miller MD [address] [address] Referring Physician Gynecology 12/27/23
--- OUTSIDE RECORDS SUMMARY | 2025-01-18 14:59 | XMS_ITS | Encounter Summary ---
Author Organization [facility] Healthcare Address [address] [place] [address] Care Team Providers Care Pathology Secretary/Transcriptionist Name Role Phone Unavailable Primary Care Provider Unavailabl e Reason for Visit * Diagnostic Imaging (Routine) - Pending Review Specialty Diagnoses / Procedures Referred By dAonis mitchell Referred To Contact Procedures Breast Imaging Screening Outside Reference Kylee Morales NP Phone: tel: fax: Referral ID Status Reason Start Date Expiration Date V isits Requested Visits Authorized [id number] Pending Review 01/07/2024 02/05/2025 1 1 Encounter Details Date Type Department Care Team (Late st Contact Info) Description 04/29/2020 Hospital Encounter [facility] [address] [place] [id number] Social History Tobacco Use Types Packs/Day Years Used Date Smoking Tobacco: Never Assessed Comments Unknown Sex and Gender Information Value Date Recorded Sex Assigned at Not on file Legal Sex Female 8:22 AM CDT Gender Identity Not on file Sexual Orientation Not on file documented as of this encounter Plan of Treatment Not on file documented as of this encounter Procedures Procedure Name Priority Date/Time Associated Diagnosis Comments BREAST IMAGING MG SCREENING OUTSIDE REFERENCE Routine 04/29/2020 12:00 AM CDT documented in this encounter Results * Breast Imaging Screening Outside Reference (04/29/2020 12:00 AM CDT) Impressions RAD_MAMMO_[facility] - 01/07/2024 4:21 PM CDT These images are for Reference purposes only and have not been reviewed by [facility] Radiology. There will be no report generated by a [facility] Radiologist. Narrative RAD_MAMMO_[facility] - 01/07/2024 4:21 PM CDT EXAMINATION: Images For Reference Purposes Only us Kylee Morales NP IMG MAMMO PROCEDURES Final Result RAD_MAMMO_[facility] documented in this encounter Visit Diagnoses Not on filedocumented in this encounter
[2025-01-18 15:08] LABS: Alveolar/Arterial O2 Gradient 535.8 mmHg; Base Excess ABG -20.7 mEq/l (+/-2.0); Fractional Inspired Oxygen 100 %; HCO3 ABG 8.1 mEq/l (22.0-26.0); Oxygen Content ABG 18.7 %vol (16.0-22.0); Oxyhemoglobin 97.8 % THb (90.0-100.0); PCO2 ABG 28.7 mmHg (35.0-45.0); PO2 ABG 148.5 mmHg (80.0-100.0); PO2 FiO2 Ratio Arterial Blood 1.49 %; Total Hemoglobin 13.4 g/dL (12.0-18.0)
--- NOTE | 2025-01-18 15:09 | PC.NURSE ---
called lab regarding the lactic blood work that had not resulted, was told it was in a bag between two blood culture bottles, and we saw it after the time had elapsed. it needs to be redrawn. edp aware
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
[2025-01-18 15:30] LABS: Alveolar/Arterial O2 Gradient 58.9 mmHg; Fractional Inspired Oxygen 21 %; HCO3 ABG 6.1 mEq/l (22.0-26.0); Oxygen Content ABG 19.2 %vol (16.0-22.0); PO2 ABG 72.4 mmHg (80.0-100.0); PO2 FiO2 Ratio Arterial Blood 3.45 %; Total Hemoglobin 14.8 g/dL (12.0-18.0)
[2025-01-18] MEDS: RAPID SEQUENCE INTUBATION KIT 1 EACH (15:31)
[2025-01-18 15:32] LABS: Add Urine Microscopic? YES; Appearance Urine Clear (Clear); Bacteria Urine None Seen /hpf; Bilirubin Urine Negative (Negative); Blood Urine Negative (Negative); Color Urine Yellow (Yellow); Glucose Urine UA 3+ mg/dL (Negative); Hyaline Casts Urine Present /lpf; Ketones Urine 3+ mg/dL (Negative); Leukocyte Esterase Ur Negative LEU/UL (Negative); Nitrate Urine Negative (Negative); Non Pathogenic Casts >20; Protein Urine 3+ mg/dL (Negative); RBC Urine 0-2 /hpf (0-2); Specific Grav Ur 1.042 (1.001-1.035); Squamous Epithelial Cell Urine Occasional /hpf (Few); WBC Urine 0-5 /hpf (0-3); pH Urine 5.5 (5.0-9.0)
[2025-01-18 15:32] LABS: Device NASAL CANNULA; Modified Allen's Test Pass; PCO2 ABG 15.4 mmHg (35.0-45.0); Site Drawn RIGHT RADIAL; pH ABG 7.216 (7.350-7.450)
[2025-01-18 15:33] LABS: Arterial Blood Gas PEEP 5 cmH2O; Arterial Blood Gas Tidal Volume 400 ml; Arterial Blood Gas Vent Mode ASSIST CONTROL; Arterial Blood Gas Ventilator rate 18 /MIN; Device VENTILATOR; Modified Allen's Test Pass; Site Drawn RIGHT RADIAL
[2025-01-18 15:51] LABS: Fractional Inspired Oxygen 100 %; HCO3 ABG 8.8 mEq/l (22.0-26.0); Oxygen Content ABG 19.6 %vol (16.0-22.0); Oxyhemoglobin 97.9 % THb (90.0-100.0); PCO2 ABG 30.5 mmHg (35.0-45.0); PO2 ABG 146.5 mmHg (80.0-100.0); PO2 FiO2 Ratio Arterial Blood 1.47 %; Total Hemoglobin 14.1 g/dL (12.0-18.0)
[2025-01-18 15:52] LABS: Arterial Blood Gas PEEP 5 cmH2O; Arterial Blood Gas Tidal Volume 400 ml; Arterial Blood Gas Vent Mode ASSIST CONTROL; Arterial Blood Gas Ventilator rate 20 /MIN; Device VENTILATOR; Modified Allen's Test Pass; Site Drawn RIGHT RADIAL
[2025-01-18] MEDS: VANCOMYCIN 1,000 MG/NS 250 ML 1,000 MG/250 ML BAG 250 MG IVPB (15:56)
[2025-01-18] MEDS: OSELTAMIVIR PHOSPHATE ORAL SUSP 75 MG/12.5 ML SYRINGE PO (15:56)
[2025-01-18 16:26] LABS: Beta-Hydroxybutyrate/Acetoacetate 7.79 mmol/L (0.02-0.27)
[2025-01-18 16:37] LABS: MRSA (PCR) NOT DETECTED (NOT DETECTE)
[2025-01-18 16:40] LABS: Alveolar/Arterial O2 Gradient 327.6 mmHg; Base Excess ABG -17.8 mEq/l (+/-2.0); Fractional Inspired Oxygen 60 %; HCO3 ABG 9.3 mEq/l (22.0-26.0); Oxygen Saturation ABG 90.1 % (95.0-100.0); Oxyhemoglobin 91.3 % THb (90.0-100.0); PCO2 ABG 26.4 mmHg (35.0-45.0); PO2 ABG 71.2 mmHg (80.0-100.0); PO2 FiO2 Ratio Arterial Blood 1.19 %
[2025-01-18] MEDS: SODIUM BICARBONATE 8.4% 50 MEQ/50 ML SYRINGE 100 MEQ IV PUSH (16:40)
[2025-01-18 16:45] LABS: Device VENTILATOR; Modified Allen's Test Pass; Site Drawn RIGHT RADIAL; pH ABG 7.163 (7.350-7.450)
[2025-01-18 16:46] LABS: Arterial Blood Gas PEEP 5 cmH2O; Arterial Blood Gas Tidal Volume 400 ml; Arterial Blood Gas Vent Mode ASSIST CONTROL; Arterial Blood Gas Ventilator rate 24 /MIN
[2025-01-18 16:51] LABS: Glucose Point of Care 151 mg/dl (65-105)
[2025-01-18] MEDS: INSULIN HUMAN REGULAR (*BKC) 100 UNITS/ML 8.9 UNITS IV PUSH (16:53)
--- NOTE | 2025-01-18 17:00 | P.HP_ITS ---
H&P: HPI History of Present Illness Date/Time: 01/18/25 17:00 Chief Complaint: Altered mental status, DKA, Pneumonia Narrative: This is a 54-year-old female patient with a past medical history type 2 diabetes on metformin, Jardiance and Ozempic. Unknown other history though medication reconciliation was able to be completed through patient family. Patient is admitted for acute hypoxic respiratory failure with DKA. Patient was on a 7 day cruise with her daughter with stops in [facility] [place], [place] and [facility]. Approximately 4 days ago began to have a cough. After the cough started, patient complained of worsening sore throat. She got to the point about 2 days ago when she quit eating or drinking anything. Her daughter states she has continued to take her medications while not eating or drinking anything including her Jardiance and metformin. Today patient was having trouble breathing but did not want to go to a hospital in [place] so she flew home and family brought her straight to ER from the airport. Patient was very tachypneic and extremely weak. She was intubated to protect airway and ease work of breathing. Initial labs with mild hyperglycemia but severely depleted CO2. ABG showed metabolic acidosis with ineffective respiratory compensation. WBC 10.3 with 23% bandemia. CXR showed pneumonia. Patient started on Cefepime, doxycycline and vancomycin for septic shock with altered mental status, fever, tachycardia, tachypnea. Lactic acid was normal at 1.0. CRP >45, Beta- hydroxybutyrate 7.79, urine with 3+ glucose and 3+ ketones. Viral swab was positive for Influenza A and patient was started on Tamiflu in ER. Procalcitonin was 7.4 ng/mL which is highly suggestive of systemic bacterial infection. Antibiotics will be continued. Ketoacidosis likely multifactorial including starvation, dehydration, diabetic and Jardiance related. Insulin drip started after IV fluid resuscitation. Initial Anion Gap calculated at 31 in ER, down to 12 by 2300. Insulin drip turned off and LR infusion at 75 mL/hr started. Q4H fingerstick glucose with SSI and Lantus 12 units given. Patient has been on 1 unit/hr of insulin drip since around 1700. She did get one amp of D50 to keep glucose up enough to finish closing anion gap. CO2 remains low but much improved. Potassium will be replaced by OG tube. Will hold all diabetic medications except insulin right now. Daughter reports last BP at primary care office for patient was 88/57 which is her normal pressure. She is on a beta-vianney and spironolactone. Review of Systems Review of Systems: ROS unobtainable: Yes unobtainable due to endotracheal tube, unobtainable due to medical condition and unobtainable due to mental status [facility] Past Medical History Medical History (Updated 01/19/25 @ 00:00 by Hector Barclay APRN) Chronic low blood pressure Family History Family History Father Diabetes mellitus Mother Diabetes mellitus Other Family history of cardiovascular disease Hypertension Social History Social History Smoking status: Never smoker Alcohol intake: current Drinks per week: 1 Substance use type: does not use Spiritual care concerns: No Meds Home Medications and Allergies Home Medications ?Medication ?Instructions ?Recorded ?Confirmed ?Type atorvastatin 20 mg tablet 20 mg PO QPM 01/18/25 01/18/25 History cyclobenzaprine 10 mg tablet 10 mg PO TID 01/18/25 01/18/25 History empagliflozin 10 mg tablet 10 mg PO DAILY 01/18/25 01/18/25 History (Jardiance) estradiol 1 mg tablet 1 mg PO DAILY 01/18/25 01/18/25 History metformin 500 mg tablet,extended 500 mg PO .Q12HR 01/18/25 01/18/25 History release 24 hr metoprolol succinate 50 mg 50 mg PO DAILY 01/18/25 01/18/25 History tablet,extended release 24 hr nabumetone 750 mg tablet 750 mg PO .q12hr 01/18/25 01/18/25 History semaglutide 2 mg/dose (8 mg/3 mL) 2 mg subcut WEEKLY 01/18/25 01/18/25 History subcutaneous pen injector (Ozempic) spironolactone 100 mg tablet 100 mg PO Q12H 01/18/25 01/18/25 History Allergies Allergy/AdvReac Type Severity Reaction Status Date / Time Sulfa (Sulfonamide Allergy Unknown Rash Verified 01/18/25 16:13 Antibiotics) Vital Signs Vital Signs - 24 hr 01/18/25 13:11 01/18/25 13:11 01/18/25 13:32 Temperature 36.7 C Pulse Rate 133 H 124 H Respiratory Rate 50 H 54 H Blood Pressure 98/78 L 96/76 L Pulse Oximetry 83 L 95 97 Oxygen Delivery Room Air Nasal Cannula Oxygen Flow Rate 4 Fraction of Inspired Oxygen 01/18/25 14:12 01/18/25 14:14 01/18/25 15:00 Temperature 36.6 C Pulse Rate 122 H 120 H 111 H Respiratory Rate 24 H 24 H 12 Blood Pressure 104/59 L Pulse Oximetry 99 Oxygen Delivery Oxygen Flow Rate Fraction of Inspired Oxygen 01/18/25 15:20 01/18/25 15:34 01/18/25 15:48 Temperature 36.6 C Pulse Rate 112 H 114 H Respiratory Rate 18 Blood Pressure 102/59 L Pulse Oximetry 99 99 Oxygen Delivery Mechanical Ventilation Mechanical Ventilation Oxygen Flow Rate Fraction of Inspired Oxygen 100 60 01/18/25 16:03 01/18/25 16:48 Temperature 36.5 C Pulse Rate 116 H 98 Respiratory Rate 18 Blood Pressure 111/62 Pulse Oximetry 97 99 Oxygen Delivery Mechanical Ventilation Oxygen Flow Rate Fraction of Inspired Oxygen 60 Exam Narrative: GENERAL: Intubated, sedated, OG tube in place, comfortable appearing HEAD: Normocephalic, atraumatic. ENT:? Mucous membranes dry. CHEST: Coarse lung sounds throughout, good chest rise and fall HEART: Tachycardic rate and irregular rhythm. ? Normal peripheral pulses. ABDOMEN: Soft, nontender, nondistended. Olguin catheter in place with scant amount of dark yellow urine EXTREMITIES: No peripheral edema. SKIN: Warm dry normal color NEURO: Sedated, unable to assess H&P: Results Labs Labs: Short CBC 01/18/25 Range/Units 13:25 WBC 10.3 H (4.5-10.0) K/mm3 Hgb 15.8 H (12.0-15.0) g/dL Hct 49.8 H (37.0-47.0) % Plt Count 256 (150-375) k/mm3 BMP 01/18/25 01/18/25 01/18/25 13:25 13:25 13:25 Sodium Cancelled 140 Potassium Cancelled 4.5 Chloride Cancelled Carbon Dioxide BUN Creatinine Glucose Calcium 01/18/25 01/18/25 01/18/25 13:25 13:25 13:25 Sodium Potassium Chloride 102 Carbon Dioxide Cancelled < 5 L BUN Cancelled 24 H Creatinine Cancelled Glucose Calcium 01/18/25 01/18/25 01/18/25 13:25 13:25 13:25 Sodium Potassium Chloride Carbon Dioxide BUN Creatinine 1.53 H Glucose Cancelled 236 H Calcium Cancelled 10.5 H Liver Function 01/18/25 01/18/25 01/18/25 Range/Units 13:25 13:25 13:25 Total Bilirubin Cancelled 1.0 AST Cancelled 56 H ALT Cancelled Alkaline Phosphatase Albumin 01/18/25 01/18/25 01/18/25 Range/Units 13:25 13:25 13:25 Total Bilirubin AST ALT 36 H Alkaline Phosphatase Cancelled 96 Albumin Cancelled 4.5 Urine 01/18/25 Range/Units 14:55 Urine Color Yellow (Yellow) Urine Appearance Clear (Clear) Urine pH 5.5 (5.0-9.0) Ur Specific [place] 1.042 H (1.001-1.035) Urine Protein 3+ H (Negative) mg/dL Urine Glucose (UA) 3+ H (Negative) mg/dL ABG ABG results: pH 7.163, pCO2 26.4 PO2 71.2, HCO3 9.3 Attestation: I personally reviewed and interpreted this ABG as follows: Interpretation: Metabolic acidosis with incomplete respiratory compensation Pulse Oximetry SpO2 results: 97-99% on Vent at 60% FIO2 Attestation: I personally reviewed and interpreted this pulse oximetry as follows: Interpretation: Patient continues to require vent/oxygenation ECG Attestation: I personally reviewed and interpreted this ECG as follows: ECG completion date: 01/18/25 ECG completion time: 13:13 Prior ECG tracings: not available for review Interpretation: Sinus tach rate 133, IN 148, QRSd 97, QTC 470, QRS axis 18, no STEMI Imaging CTA chest: Radiologist's impression: CTA chest PE protocol Ordering provider: Maxi Macedo MD History: 54 years Female with . sob . Comparison: None. Technique: CT angiogram chest was performed following timed intravenous injection of contrast. Thin slice axial images and reformatted coronal images were obtained. Three dimensional reformatted images of the chest were also obtained using a [employer] workstation. . Automated exposure control and iterative reconstruction technique were employed. The dose-length product was 386.55 mGy- cm. 100 mL Omnipaque 350 was given IV. Findings: Endotracheal tube and nasogastric tube are noted. PULMONARY ARTERIES: No pulmonary embolus. VISUALIZED THORACIC INLET: Normal. MEDIASTINUM: Aorta/coronary arteries: Mild atheromatous disease. Heart/other: The heart is not enlarged. Lymph nodes: No mediastinal or hilar adenopathy. Small prevascular lymph nodes are noted. LUNGS: Bilateral lower lobe and lingular pneumonia is noted. Pneumonia in the right upper lobe posteriorly is also seen. Minimal consolidation also seen in the middle lobe. No pulmonary nodules or masses. No effusions. No pneumothorax. VISUALIZED UPPER ABDOMEN: Fat infiltration of the liver. Status post cholecystectomy. Otherwise, the visualized upper abdomen is normal. MUSCULOSKELETAL: Soft tissues: The superficial soft tissues are normal. Bones: Age appropriate degenerative changes of the spine. IMPRESSION: 1. No pulmonary embolism. 2. Bilateral pneumonia in the lower lobes. Pneumonia in the lingula. Minimal changes of pneumonia in the right middle lobe. Pneumonia in the right upper lobe posteriorly. Follow-up to resolution is advised. Reviewed, dictated and finalized at location A. Assessment and Plan Assessment and plan (1) DKA (diabetic ketoacidosis): Code(s): E11.10 - Type 2 diabetes mellitus with ketoacidosis without coma Status: Acute Assessment and Plan: -Euglycemic DKA due to combination of Jardiance and dehydration -Patient profoundly weak on arrival with RR around 50 -Acidosis on ABG as low as 7.070 with depleted HCO3 -Calculated anion gap about 31 on arrival -S/P intubation, fluid resuscitation, 2 amps of sodium bicarb and initiation of insulin drip with glucose and potassium containing fluids -UA with 3+ glucose and 3+ ketones -Beta hydroxybutyrate 7.79 -Lactic acid 1.0 -Severe sore throat and cough prevented patient from eating/drinking for several days -Hemoglobin A1c was 5.9 on admission (2) PNA (pneumonia): Code(s): J18.9 - Pneumonia, unspecified organism Status: Acute Assessment and Plan: -Multifocal PNA with bilateral lower lobe, right upper lobe and right middle lobe pneumonia noted on CT -Influenza A noted, Tamiflu started -Cefepime, doxycycline and vancomycin also started -MRSA PCR nares negative -procalcitonin elevated at 7.4, continue antibiotic treatment and trend daily (3) Acute hypoxic respiratory failure: Code(s): J96.01 - Acute respiratory failure with hypoxia Status: Acute Assessment and Plan: -Patient hypoxic on arrival with extreme tachypnea -Intubated due to severity of condition -Pneumonia noted on imaging -Flu A noted on testing (4) Flu: Code(s): J11.1 - Influenza due to unidentified influenza virus with other respiratory manifestations Status: Acute Assessment and Plan: See above (5) Chronic low blood pressure: Code(s): I95.89 - Other hypotension Status: Acute Assessment and Plan: -Daughter reports last BP at doctor's office 88/57 which is normal for her -On metoprolol and spironolactone without known diagnosis history beyond Type 2 DM Quality VTE Prophylaxis VTE prophylaxis: pharmacologic ordered (Lovenox) Total time spent on this patient including critical care time below: 120 minutes Due to a high probability of clinically significant, life threatening deterioration, the patient required my highest level of preparedness to intervene emergently and I personally spent this critical care time directly and personally managing the patient. This critical care time included obtaining a history; examining the patient; pulse oximetry; ordering and review of studies; arranging urgent treatment with development of a management plan; evaluation of patient's response to treatment; frequent reassessment; and discussions with other providers. It was exclusive of separately billable procedures and treating other patients and teaching time. Please see Assessment and Plan section and the rest of the note for further information on patient assessment and treatment. Critical Care time: 60 minutes Hospitalist MIPS Advance Care Plan I have confirmed that the patient's Advanced Care Plan is present, code status is documented, or surrogate decision maker is listed in patient medical record.: Yes Medication Reconciliation I have utilized all available resources to obtain, update and review the patients current medications (includes all prescriptions, OTC, herbals, canna bis, and nutritional supplements).: Yes
[2025-01-18] MEDS: KCL 20 MEQ/D5/0.45% SOD CHL 1,000 ML 150 ML IV CONT ×2 (17:03→23:08)
[2025-01-18 17:58] LABS: Glucose Point of Care 129 mg/dl (65-105)
--- NOTE | 2025-01-18 18:29 | ADMGEN ---
This patient, Kimberly Mixon, was admitted to Intensive Care Unit-6. Patient/family oriented to hospital policies and general routines including ID bracelet, bed and alarms, visiting hours, pain management, procedures, bathroom and other care routines, personal items, smoking policy, room service/diet, and visiting hours. Information on how to activate the Rapid Response Team has been discussed. Patient/Family are encouraged to report perceived risks to care and to ask questions if they do not understand what they are told or what they should do.
[2025-01-18] MEDS: INSULIN HUMAN REGULAR (*BKC) 100 UNITS in SODIUM CHLORIDE 0.9% IV 99 ML IV CONT ×2 (18:38→20:00)
[2025-01-18 19:13] LABS: Anion Gap 22 mmol/L (4-12); Blood Urea Nitrogen 21 mg/dL (7-17); Carbon Dioxide 9 mmol/L (22-30); Chloride 112 mmol/L (98-107); Estimated CRCL calculation 50 ml/min; Estimated Glomerular Filt Rate 59; Glucose 133 mg/dL (65-110); Magnesium 2.3 mg/dL (1.6-2.3); Phosphorus 2.5 mg/dL (2.5-4.5); Potassium 4.3 mmol/L (3.4-5.0); Sodium 143 mmol/L (137-145)
[2025-01-18 19:19] LABS: Hemoglobin A1C. 5.9 % (<5.7)
[2025-01-18 19:25] LABS: Glucose Point of Care 136 mg/dl (65-105)
[2025-01-18 19:39] LABS: Procalcitonin. 7.4 ng/mL
[2025-01-18] MEDS: DEXTROSE 50% 25 GM/50 ML SYRINGE IV PUSH (19:46)
[2025-01-18 20:09] LABS: MRSA (PCR) NOT DETECTED (NOT DETECTE)
[2025-01-18 20:25] LABS: Glucose Point of Care 198 mg/dl (65-105)
[2025-01-18] MEDS: ACETAMINOPHEN ELIXIR 325 MG/10.15 ML UDC 650 MG FEED TUBE (20:33)
[2025-01-18] MEDS: OSELTAMIVIR PHOSPHATE ORAL SUSP 75 MG/12.5 ML SYRINGE 30 MG PO (21:18)
[2025-01-18 21:25] LABS: Glucose Point of Care 182 mg/dl (65-105)
[2025-01-18 21:49] LABS: Alveolar/Arterial O2 Gradient 318.3 mmHg; Base Excess ABG -7.5 mEq/l (+/-2.0); Carboxyhemoglobin 0.1 % THb (0-2.0); Fractional Inspired Oxygen 60 %; HCO3 ABG 15.3 mEq/l (22.0-26.0); Methemoglobin ABG 0.2 %THb (0-1.5); Oxygen Content ABG 18.4 %vol (16.0-22.0); Oxygen Saturation ABG 96.4 % (95.0-100.0); Oxyhemoglobin 96.2 % THb (90.0-100.0); PCO2 ABG 24.8 mmHg (35.0-45.0); PO2 ABG 82.2 mmHg (80.0-100.0); PO2 FiO2 Ratio Arterial Blood 1.37 %; Reduced Hemoglobin 3.5 %THb (0-5.0); Total Hemoglobin 13.6 g/dL (12.0-18.0); pH ABG 7.409 (7.350-7.450)
[2025-01-18 21:54] LABS: Device VENTILATOR; Modified Allen's Test Unable to perform; Site Drawn RIGHT RADIAL
[2025-01-18 21:56] LABS: Arterial Blood Gas Vent Mode ASSIST CONTROL; Arterial Blood Gas Ventilator rate 24 /MIN
[2025-01-18 21:57] LABS: Arterial Blood Gas PEEP 5 cmH2O; Arterial Blood Gas Tidal Volume 400 ml
[2025-01-18 22:22] LABS: Glucose Point of Care 167 mg/dl (65-105)
[2025-01-18 23:09] LABS: Sodium 141 mmol/L (137-145)
[2025-01-18 23:12] LABS: Anion Gap 12 mmol/L (4-12); Blood Urea Nitrogen 18 mg/dL (7-17); Calcium 8.4 mg/dL (8.4-10.2); Carbon Dioxide 14 mmol/L (22-30); Chloride 115 mmol/L (98-107); Estimated CRCL calculation 61 ml/min; Estimated Glomerular Filt Rate > 60; Glucose 165 mg/dL (65-110); Potassium 3.5 mmol/L (3.4-5.0)
[2025-01-18 23:17] LABS: Glucose Point of Care 164 mg/dl (65-105)
[2025-01-18] MEDS: INSULIN GLARGINE (*BKC) 100 UNITS/ML 12 UNITS SUB-Q (23:37)
[2025-01-18] MEDS: LACTATED RINGERS 1,000 ML 75 ML IV CONT (23:37)
[2025-01-18] MEDS: POTASSIUM CHLORIDE 20 MEQ PACKET (FOR LIQUID) 40 MEQ FEED TUBE (23:37)
[2025-01-19] VITALS (46 sets, daily range): BP systolic 74–118; BP diastolic 46–73; PULSE 119–136; RESP 19–41; TEMP 37.6–39.2; O2SAT 92–96; BMI 24.2
--- NOTE | 2025-01-19 | ECHO_ITS ---
Patient Info Name: Kimberly Mixon Age: 54 years : 1970 Gender: Female Ht: 64 in Wt: 141 lbs BSA: 1.71 m2 HR: 127 bpm BP: 104 / 61 mmHg Heart Rhythm: Tachycardia Technical Quality: Poor Exam Date: 01/19/2025 9:50 AM Patient Status: I Admit Date: 01/18/2025 Exam Type: CA echo dop color flow w con Complete two-dimensional, color flow and Doppler transthoracic echocardiogram is performed with contrast to opacify the left ventricle and to improve the deliniation of the left ventricle endocardial borders. Staff Referring Physician: Verito Zamora DO Otr Driver: Penelope Gonzalez Attending Provider: Elif Coyne MD Contrast/Agitated Saline Contrast/Ag. Saline: Definity Amount: 2.00 ml Administered By: Penelope Gonzalez Summary 1. Left ventricular chamber dimension is normal. 2. Left ventricular systolic function is normal, estimated at 60-65. 3. The left ventricular diastolic function is grade I diastolic dysfunction. 4. Right ventricular chamber dimension is mildly enlarged. 5. Right ventricular systolic function is normal. 6. Right atrial chamber dimension is mildly enlarged. 7. There is mild to moderate tricuspid valve regurgitation. Left Ventricle Left ventricular chamber dimension is normal. Left ventricular systolic function is normal, estimated at 60-65. There is no increased left ventricular wall thickness. The left ventricular diastolic function is grade I diastolic dysfunction. Right Ventricle Right ventricular chamber dimension is mildly enlarged. Right ventricular systolic function is normal. Left Atria Left atrial chamber dimension is normal. Right Atria Right atrial chamber dimension is mildly enlarged. Atrial Septum Intact interatrial septum visualized by color flow imaging. Aortic Valve The aortic valve is probable trileaflet. There is no aortic valve stenosis. There is no aortic valve regurgitation. There is mild aortic valve calcification. Pulmonic Valve The pulmonic valve is not well visualized. Mitral Valve There is trace mitral valve regurgitation. Tricuspid Valve There is mild to moderate tricuspid valve regurgitation. Pericardium/Pleural There is no pericardial effusion. Inferior Vena Cava Dilated inferior vena cava with <50% collapse upon inspiration consistent with elevated right atrial pressure, 15 mmHg. Aorta The aortic root size at the sinus of Valsalva is normal. Left Ventricular Outflow Tract Name Value Normal LVOT 2D LVOT Diameter 1.8 cm LVOT Doppler LVOT Peak Velocity 123 cm/s LVOT Peak Gradient 6 mmHg LVOT Mean Gradient 4 mmHg LVOT VTI 19 cm LVOT VTI/AV VTI Ratio 1.0 LVOT Stroke Volume 49 ml LVOT CO 2.2 l/min LVOT CI 1.3 l/min/m2 Pulmonic Valve Name Value Normal PV Doppler PV Peak Velocity 131 cm/s PV Peak Gradient 7 mmHg Mitral Valve Name Value Normal MV Diastolic Function MV E Peak Velocity 102 cm/s MV A Peak Velocity 128 cm/s MV E/A 0.8 MV Decel Time (PW) 115 ms MV Annular TDI MV E/e' (Septal) 4.8 MV E/e' (Lateral) 8.1 MV E/e' (Average) 6.5 Tricuspid Valve Name Value Normal TV Regurgitation Doppler TR Peak Velocity 351 cm/s TR Peak Gradient 49 mmHg Estimated PAP/RSVP RA Pressure 15 mmHg <=5 PA Systolic Pressure 64 mmHg <36 RV Systolic Pressure 64 mmHg <36 TV Annular TDI TV Lateral Abby s' Velocity 24.2 cm/s >=9.5 Aortic Valve Name Value Normal AV Doppler AV Peak Velocity 136 cm/s AV Peak Gradient 7 mmHg AV Mean Gradient 4 mmHg AV VTI 20 cm AV Area (Cont Eq VTI) 2.5 cm2 >=3.0 AV Area (Cont Eq Edward) 2.3 cm2 AV DI (Edward) 0.90 AV Regurgitation 2D LVOT Area 2.6 cm2 Ventricles Name Value Normal LV Dimensions 2D/MM IVS Diastolic Thickness (2D) 0.8 cm 0.6-1.0 LVID Diastole (2D) 3.7 cm 3.8-5.2 LVIW Diastolic Thickness (2D) 0.8 cm 0.6-0.9 LVID Systole (2D) 2.7 cm 2.2-3.5 LVOT Diameter 1.8 cm LV Mass (2D Cubed) 80.79 g 67.00-162.00 LV Mass Index (2D Cubed) 47 g/m2 43-95 Relative Wall Thickness (2D) 0.45 <=0.42 LV Fractional Shortening/Ejection Fraction 2D/MM LV Fractional Shortening (2D) 27 % 27-45 LV EF (2D Teichholz) 54 % LV Diastolic Volume (4C MOD) 52 ml LV EF (4C MOD) 74 % LV Diastolic Length (4C) 6.4 cm LV Systolic Length (4C) 5.1 cm LV Stroke Volume (4C MOD) 38 ml Atria Name Value Normal LA Dimensions LA Volume (4C A-L) 21 ml RA Dimensions RA Systolic Major [place] Length (4C) 5.1 cm 2.2-2.8 RA Area (4C) 17.0 cm2 <=18.0 Report Signatures
[2025-01-19 00:05] LABS: Glucose Point of Care 152 mg/dl (65-105)
[2025-01-19] MEDS: LACTATED RINGERS 1,000 ML 999 ML IV CONT (00:54)
[2025-01-19] MEDS: IBUPROFEN SUSPENSION 200 MG/10 ML UDC 600 MG FEED TUBE (00:55)
[2025-01-19 01:24] LABS: Anion Gap 11 mmol/L (4-12); Blood Urea Nitrogen 17 mg/dL (7-17); Calcium 8.7 mg/dL (8.4-10.2); Carbon Dioxide 16 mmol/L (22-30); Chloride 116 mmol/L (98-107); Estimated CRCL calculation 60 ml/min; Estimated Glomerular Filt Rate > 60; Glucose 139 mg/dL (65-110); Potassium 4.5 mmol/L (3.4-5.0); Sodium 143 mmol/L (137-145)
[2025-01-19] MEDS: NOREPINEPHRINE 8 MG/D5W 250 ML 8 MG/250 ML BAG 9.38 MG IV CONT (03:30)
[2025-01-19] MEDS: MIDAZOLAM 100MG/NS 100ML(*CRX) 100 MG/100 ML BAG IV CONT (04:00)
[2025-01-19] MEDS: FENTANYL 2,500MCG/NS250ML(*CRX 2,500 MCG/250 ML BAG IV CONT (04:00)
--- NOTE | 2025-01-19 04:14 | P.PCNBED_ITS ---
Procedures Central Line Placement Right IJ: Central Line Date: 01/19/25 Central Line Time: 03:25 Discussed w/ the patient/family/POA,the placement of a central venous catheter, including its clinical necessity/indication & associated potential risks, benifits and alternatives.: Yes The patient/family/POA understand(s) and acknowledge(s) the need to proceed with central venous catheter insertion as an important element of the patient's clinical management.: Yes Consent: I have discussed with the patient and/or surrogate, the non-emergent placement of a central venous catheter, including its clinical necessity/indication and associated potential risks and complications. The patient and/or surrogate understand(s) and acknowledge(s) the need to proceed with central venous catheter insertion as an important element of the patient's clinical management. Time Out Performed: Yes Patient Position: trendelenburg Patient placed on monitor/pulse ox: Yes Provider Prep: mask, sterile gown, sterile gloves, Max. sterile barrier precautions, cap, hand hygiene with conventional soap/water or alcohol based hand rub and emergent ? sterile barriers not used Central line prep: 2% Chlorhexidine scrub Sterile US Technique with sterile gel/sterile probe covers: Yes Central line lumen inserted: triple Croatian: 7 Length (cm): 16 Depth of Insertion (cm): 15 Post Procedure: sutured in place, good blood return, all ports aspirated, flushed, capped, transparent dressing, hemostatic product, antimicrobial product, securement product and aseptic technique maintained throughout procedure Post procedure x-ray: tip of catheter in good position and no pneumothorax seen Patient tolerated procedure: well Complications: none
--- NOTE | 2025-01-19 04:16 | PM.EVENT ---
Event Note Event Note Event Note: 01/19/2025 03:00 Nursing staff called to notify me patient was profoundly hypotensive. Patient was seen and evaluated. Patient's daughter reports patient's baseline blood pressures are usually in the the mid 90s to the upper 80s systolic. She also reports patient has chronic sinus tachycardia with heart rates in the 100s to 110s at all times. She takes metoprolol for the tachycardia. The patient was intubated in the ER due to respiratory failure and was found to have influenza a. Patient is having copious amounts of the knee purulent-appearing to sputum from in-line suctioning. Patient is on broad-spectrum antibiotic coverage with cefepime and vancomycin. The patient had already received 3 L fluid bolus in the ER according to physician report. He she patient concerned he acutely developed the 100 sedation in her blood pressures. He nursing staff called me with patient's systolic blood pressures were in the low 70s. Cheetah score was obtained which demonstrated patient was not fluid responsive. I talked to the patient's daughter at bedside and nursing staff contacted the patient's who gave consent for central line placement. She right IJ was placed. Orders were given for Levophed to maintain maps greater than 65 and systolic blood pressures greater than 85. She patient ABGs were reviewed patient developed a respiratory alkalosis. I decreased the patient's tidal volume from 400 down to 330 to aim for his 6 mL/kilogram to reduced barotrauma. The remainder the vent setting remained stable with a.c. CMV peep of 5 60% FiO2 and rate of 24. GENERAL: Acutely ill-appearing, thin body habitus HEENT: Mucous membranes are dry, ET tube present, purulent-appearing aspirate from the inline suctioning, OG with biliary drainage CARDIOVASCULAR: Sinus tachycardia, thready radial pulses, JVD RESPIRATORY: Coarse breath sounds bilaterally ABDOMEN: Soft, nontender INTEGUMENT: Peripheral extremities cool to touch, mottled extremities NEUROLOGIC: Pupils are pinpoint bloody PSYCHIATRIC: Unable to assess EXTREMITIES: No cyanosis, no edema : Olguin catheter in place with fair amount of dark yellow urine Septic shock Acute hypoxic respiratory failure with respiratory alkalosis following intubation She severe bandemia Influenza a Euglycemic ketoacidosis--resolved Plan: As discussed above 40 minutes spent in critical care activities. Due to a high probability of clinically significant, life threatening deterioration, the patient required my highest level of preparedness to intervene emergently and I personally spent this critical care time directly and personally managing the patient. This critical care time included obtaining a history; examining the patient; pulse oximetry; ordering and review of studies; arranging urgent treatment with development of a management plan; evaluation of patient's response to treatment; frequent reassessment; and discussions with other providers. It was exclusive of separately billable procedures and treating other patients and teaching time. Please see Assessment and Plan section and the rest of the note for further information on patient assessment and treatment.
[2025-01-19 04:53] LABS: Hematocrit 34.9 % (37.0-47.0); Hemoglobin 12.1 g/dL (12.0-15.0); Mean Corpuscular HGB Conc 34.7 g/dl (32-36); Mean Corpuscular Hemoglobin 32.4 pg (26-34); Mean Corpuscular Volume 93.3 fl (80-100); Mean Platelet Volume 9.6 fl (7.4-10.4); Platelet Count Result 166 k/mm3 (150-375); Red Blood Count 3.74 M/mm3 (4.2-5.4); Red Cell Distribution Width 13.7 % (11.5-14.5); White Blood Count 5.9 K/mm3 (4.5-10.0)
[2025-01-19 05:09] LABS: Alveolar/Arterial O2 Gradient 294.1 mmHg; Base Excess ABG -7.3 mEq/l (+/-2.0); Carboxyhemoglobin 0.3 % THb (0-2.0); Fractional Inspired Oxygen 60 %; Methemoglobin ABG 0.3 %THb (0-1.5); Oxygen Content ABG 12.8 %vol (16.0-22.0); Oxygen Saturation ABG 97.5 % (95.0-100.0); Oxyhemoglobin 96.9 % THb (90.0-100.0); PO2 ABG 100.7 mmHg (80.0-100.0); PO2 FiO2 Ratio Arterial Blood 1.68 %; Reduced Hemoglobin 2.5 %THb (0-5.0); Total Hemoglobin 9.3 g/dL (12.0-18.0); pH ABG 7.372 (7.350-7.450)
[2025-01-19 05:13] LABS: Device VENTILATOR; Modified Allen's Test Pass; Site Drawn LEFT RADIAL
[2025-01-19 05:14] LABS: Arterial Blood Gas PEEP 5 cmH2O; Arterial Blood Gas Tidal Volume 330 ml; Arterial Blood Gas Ventilator rate 24 /MIN
[2025-01-19 05:20] LABS: Band Neutrophils Percent 22 % (0-6); Lymphocytes Absolute Manual 0.76 K/mm3 (1.1-4.5); Monocytes Absolute Manual 0.47 K/mm3 (0.1-0.90); Monocytes Percent Manual 8 % (3-9); Neutrophils Absolute Manual 4.66 K/mm3 (1.3-6.7); Neutrophils Percent Manual 57 % (46-73); Total Cells Counted 100
[2025-01-19 05:21] LABS: Anisocytosis 1+; Burr Cells 1+; Platelet Estimate Adequate (Adequate); Schistocytes None Seen
[2025-01-19 05:29] LABS: Alanine Aminotransferase 32 U/L (6-35); Albumin Level 2.5 g/dL (3.5-5.1); Alkaline Phosphatase 69 U/L (38-126); Anion Gap 10 mmol/L (4-12); Aspartate Amino Transferase 63 U/L (14-36); Bilirubin,Total 0.6 mg/dL (0.2-1.3); Blood Urea Nitrogen 20 mg/dL (7-17); Calcium 8.7 mg/dL (8.4-10.2); Carbon Dioxide 17 mmol/L (22-30); Chloride 116 mmol/L (98-107); Estimated CRCL calculation 52 ml/min; Estimated Glomerular Filt Rate > 60; Glucose 133 mg/dL (65-110); Magnesium 1.8 mg/dL (1.6-2.3); Potassium 4.3 mmol/L (3.4-5.0); Sodium 143 mmol/L (137-145); Total Protein 5.5 g/dL (6.3-8.2)
[2025-01-19 05:44] LABS: CRP. 43.3 mg/dL (<1.0)
[2025-01-19 05:47] LABS: Procalcitonin. 12.5 ng/mL
[2025-01-19] MEDS: CEFEPIME 2 GM/NS 50 ML 2 GM/50 ML BAG IVPB ×3 (06:22→21:43)
[2025-01-19] MEDS: CENTRAL LINE FLUSH 10 ML IV PUSH ×3 (06:23→21:39)
[2025-01-19 07:37] LABS: Arterial Blood Gas Vent Mode CMV
[2025-01-19 07:45] LABS: Glucose Point of Care 131 mg/dl (65-105)
[2025-01-19 08:25] LABS: Lactic Acid Reflex 1.8 mmol/L (0.7-2.0)
[2025-01-19] MEDS: SODIUM BICARBONATE 8.4% 150 MEQ in WATER, STERILE FOR INJECTION 950 ML 100 MEQ IV CONT (08:30)
[2025-01-19] MEDS: PHENYLEPHRINE HCL INJ 50 MG in SODIUM CHLORIDE 0.9% IV 245 ML 12 ML IV CONT (08:32)
[2025-01-19] MEDS: ALBUMIN HUMAN 25% 25 GM/100 ML 100 ML IVPB ×3 (08:34→17:34)
[2025-01-19] MEDS: OSELTAMIVIR PHOSPHATE ORAL SUSP 75 MG/12.5 ML SYRINGE 30 MG PO ×2 (08:35→20:19)
[2025-01-19] MEDS: MINERAL OIL/WHITE PETROLATUM OINTMENT 1 APPLIC EACH EYE ×2 (08:36→20:20)
--- NOTE | 2025-01-19 08:38 | WPDCNINT ---
Assessment and Plan Assessment and plan (1) Acute hypoxic respiratory failure: Code(s): J96.01 - Acute respiratory failure with hypoxia Status: Acute Assessment and Plan: 01/18: Patient presented the ED with shortness of breath, weakness, diabetic ketoacidosis, pneumonia 01/18: Intubated in the ED for airway protection and hypoxia -remains on CMV mode of ventilation, peep of 5, 60% FiO2, titrate FiO2 to maintain O2 sat > 92% -chest x-ray and ABGs reviewed, ventilator adjusted -chest x-ray and CTA chest showed bilateral lower lobe pneumonia -started on cefepime, doxycycline and vancomycin (01/18) -positive for influenza A, started on Tamiflu 01/15: CTA chest IMPRESSION: 1. No pulmonary embolism. 2. Bilateral pneumonia in the lower lobes. Pneumonia in the lingula. Minimal changes of pneumonia in the right middle lobe. Pneumonia in the right upper lobe posteriorly. Follow-up to resolution is advised. (2) Septic shock: Code(s): A41.9 - Sepsis, unspecified organism; R65.21 - Severe sepsis with septic shock Status: Acute Assessment and Plan: Patient presented with bilateral lower lobe infiltrates, pneumonia, hypotension overnight requiring central line placement on 01/19, and Levophed -continue Levophed to maintain SBP> 90 mmHg, as daughter stateThat patient has normal SBP is in the 80s to 90s -will switch Levophed to phenylephrine as patient is tachycardic, will wean Levophed to off -elevated CRP and procalcitonin on admission -patient febrile with a T-max of 102?, continue Tylenol -this could be related to influenza A and pneumonia -01/18: Blood cultures have been obtained and pending -01/19: Ordered sputum culture -will discontinue LR and start sodium bicarb infusion for a total of 1000 mL -given her tachycardia, will add albumin for 4 doses -check echocardiogram -check lactic acid (3) PNA (pneumonia): Code(s): J18.9 - Pneumonia, unspecified organism Status: Acute Assessment and Plan: Bilateral lower lobe pneumonia, continue antibiotics as above -currently intubated on mechanical ventilation (4) DKA (diabetic ketoacidosis): Code(s): E11.10 - Type 2 diabetes mellitus with ketoacidosis without coma Status: Acute Assessment and Plan: Patient presented with elevated beta hydroxybutyrate, anion gap metabolic acidosis, UA showed ketones, glucose -likely euglycemic diabetic ketoacidosis as patient was still taking Jardiance and metformin -this given 3 L IV fluids since admission, started on insulin infusion per DKA protocol -overnight patient was transition to long-acting insulin Lantus, and sliding scale insulin with Accu-Chek -continue to monitor (5) Flu: Code(s): J11.1 - Influenza due to unidentified influenza virus with other respiratory manifestations Status: Acute Assessment and Plan: Patient was tested positive for influenza A -started on Tamiflu (6) Chronic low blood pressure: Code(s): I95.89 - Other hypotension Status: Acute Assessment and Plan: Patient has chronic low blood pressures, according the daughter systolic blood pressures range in the 80s to 90s (7) Sinus tachycardia: Code(s): R00.0 - Tachycardia, unspecified Status: Acute Assessment and Plan: Has a history of chronic sinus tachycardia for which she is on metoprolol at home - will hold for now since patient is on pressors (8) PCOS (polycystic ovarian syndrome): Code(s): E28.2 - Polycystic ovarian syndrome Status: Acute Assessment and Plan: On spironolactone which will continue to hold for now due to patient being on pressors, hypovolemic hold estradiol (9) Hyperlipidemia: Code(s): E78.5 - Hyperlipidemia, unspecified Status: Acute Assessment and Plan: continue Atorvastatin Plan DVT prophylaxis: Lovenox Stress ulcer prophylaxis: Protonix Nutrition: Will start tube feeds Code Status: Full code Critical Care Time Spent: 51 minutes Discussed with daughter at bedside and updated her with patient's condition and plan of care. I answered all questions Due to a high probability of clinically significant, life threatening deterioration, the patient required my highest level of preparedness to intervene emergently and I personally spent this critical care time directly and personally managing the patient. This critical care time included obtaining a history; examining the patient; pulse oximetry; ordering and review of studies; arranging urgent treatment with development of a management plan; evaluation of patient's response to treatment; frequent reassessment; and discussions with other providers. It was exclusive of separately billable procedures and treating other patients and teaching time. Please see Assessment and Plan section and the rest of the note for further information on patient assessment and treatment This dictation may have been done utilizing a voice recognition system. Attempts have been made to correct errors. However, there may be uncorrected grammatical, spelling, and recognitions errors present. Probation Agent Consult Note Consult date: 01/19/25 Reason for consult: Septic shock, acute respiratory failure, pneumonia, euglycemic diabetic ketoacidosis, HPI: Kimberly Mixon is a 54 year old female with past medical history of diabetes type 2 on metformin, Jardiance and Ozempic, chronic low blood pressures with systolic blood pressures in the 80s to 90s according to the daughter, chronic tachycardia in the 110s, PCOS for which she is on metformin, hyperlipidemia presented the ED on 01/18/2025 with complains of shortness of breath, weakness and fatigue while she was in a 7 day cruise with her daughter, has been and stops in [place], [place] in [facility]. Approximately 4 days into the cruise she began to have a cough with sore throat. Two days prior to admission she was unable to eat or drink anything, the she continue take her medications which included Jardiance and metformin. On the due for admission she was having more trouble breathing, and was brought to the ER straight from the airport. Patient was tachypneic, weak, was intubated for airway protection. She was diagnosed with euglycemic diabetic ketoacidosis with a elevated beta hydroxybutyrate, anion gap metabolic acidosis, urine was positive for glucose and ketones. Lactic acid was 1.0. WBC was 10.3 with 23% bandemia. Influenza a was positive patient was negative for RSV and COVID. CRP was > 45 and procalcitonin was 7.4. Patient received 3 L IV fluid bolus, started on cefepime, vancomycin and doxycycline. Patient was started on insulin infusion per DKA protocol on admission. Was transition to sliding scale insulin Lantus last night. Initial ABG with a pH of 7.080, pCO2 of 30.5, PO2 146, a HC03 8.8, O2 sats 98%. After which ventilator setting were adjusted. Patient was transferred to the ICU for further management Patient seen and examined this morning in the ICU, is intubated on CMV mode of ventilation, peep of 5, 60% FiO2. Sedated with fentanyl and Versed infusion. Patient did drop her blood pressures overnight with systolic in the 70s, right IJ central line was inserted by the hospitalist overnight. Sedated with fentanyl and Versed infusion, patient does not open her eyes or follow simple commands, withdraws to pain stimuli. Urine output has been adequate, febrile with a T-max of 102.1?. Patient remains on Levophed at 6 mcg/min -I did discuss with patient's daughter regarding any diarrhea that the patient had on the cruise, that on his stated that she has not had any diarrhea on the cruise which she normally has diarrhea otherwise Review of Systems Review of Systems: ROS unobtainable: Yes unobtainable due to endotracheal tube and unobtainable due to medical condition [facility] Past Medical History Medical History (Updated 01/19/25 @ 09:42 by Dotty Galvez MD) Chronic low blood pressure Family History Family History Father Diabetes mellitus Mother Diabetes mellitus Other Family history of cardiovascular disease Hypertension Social History Social History Smoking status: Never smoker Alcohol intake: current Drinks per week: 1 Substance use type: does not use Spiritual care concerns: No Meds Home Medications and Allergies Home Medications ?Medication ?Instructions ?Recorded ?Confirmed ?Type atorvastatin 20 mg tablet 20 mg PO QPM 01/18/25 01/18/25 History cyclobenzaprine 10 mg tablet 10 mg PO TID 01/18/25 01/18/25 History empagliflozin 10 mg tablet 10 mg PO DAILY 01/18/25 01/18/25 History (Jardiance) estradiol 1 mg tablet 1 mg PO DAILY 01/18/25 01/18/25 History metformin 500 mg tablet,extended 500 mg PO .Q12HR 01/18/25 01/18/25 History release 24 hr metoprolol succinate 50 mg 50 mg PO DAILY 01/18/25 01/18/25 History tablet,extended release 24 hr nabumetone 750 mg tablet 750 mg PO .q12hr 01/18/25 01/18/25 History semaglutide 2 mg/dose (8 mg/3 mL) 2 mg subcut WEEKLY 01/18/25 01/18/25 History subcutaneous pen injector (Ozempic) spironolactone 100 mg tablet 100 mg PO Q12H 01/18/25 01/18/25 History Allergies Allergy/AdvReac Type Severity Reaction Status Date / Time Sulfa (Sulfonamide Allergy Unknown Rash Verified 01/18/25 16:13 Antibiotics) Vital Signs Vital Signs - 24 hr 01/18/25 13:11 01/18/25 13:11 01/18/25 13:32 Temperature 98.1 F Pulse Rate 133 H 124 H Respiratory Rate 50 H 54 H Blood Pressure 98/78 L 96/76 L Pulse Oximetry 83 L 95 97 Oxygen Delivery Room Air Nasal Cannula Oxygen Flow Rate 4 Fraction of Inspired Oxygen 01/18/25 14:12 01/18/25 14:14 01/18/25 15:00 Temperature 97.9 F Pulse Rate 122 H 120 H 111 H Respiratory Rate 24 H 24 H 12 Blood Pressure 104/59 L Pulse Oximetry 99 Oxygen Delivery Oxygen Flow Rate Fraction of Inspired Oxygen 01/18/25 15:20 01/18/25 15:34 01/18/25 15:48 Temperature 97.8 F Pulse Rate 112 H 114 H Respiratory Rate 18 Blood Pressure 102/59 L Pulse Oximetry 99 99 Oxygen Delivery Mechanical Ventilation Mechanical Ventilation Oxygen Flow Rate Fraction of Inspired Oxygen 100 60 01/18/25 16:03 01/18/25 16:48 01/18/25 17:17 Temperature 97.7 F 97.8 F Pulse Rate 116 H 98 123 H Respiratory Rate 18 20 Blood Pressure 111/62 111/65 Pulse Oximetry 97 99 96 Oxygen Delivery Mechanical Ventilation Oxygen Flow Rate Fraction of Inspired Oxygen 60 01/18/25 17:49 01/18/25 17:50 01/18/25 18:00 Temperature 97.9 F 99.9 F H Pulse Rate 123 H 102 H 128 H Respiratory Rate 20 29 H Blood Pressure 109/61 106/60 Pulse Oximetry 98 99 91 Oxygen Delivery Mechanical Ventilation Oxygen Flow Rate Fraction of Inspired Oxygen 60 01/18/25 18:04 01/18/25 18:15 01/18/25 18:39 Temperature 99.9 F H Pulse Rate 125 H 127 H 125 H Respiratory Rate 29 H 27 H 29 H Blood Pressure 109/67 Pulse Oximetry 96 96 Oxygen Delivery Mechanical Ventilation Oxygen Flow Rate Fraction of Inspired Oxygen 60 01/18/25 18:40 01/18/25 19:00 01/18/25 20:00 Temperature 102.0 F H Pulse Rate 125 H 127 H 128 H Respiratory Rate 29 H 26 H 26 H Blood Pressure 111/61 112/63 Pulse Oximetry 100 100 Oxygen Delivery Oxygen Flow Rate Fraction of Inspired Oxygen 01/18/25 20:00 01/18/25 20:00 01/18/25 20:00 Temperature Pulse Rate 128 H Respiratory Rate Blood Pressure Pulse Oximetry Oxygen Delivery Mechanical Ventilation Oxygen Flow Rate Fraction of Inspired Oxygen 60 60 01/18/25 20:00 01/18/25 20:00 01/18/25 20:27 Temperature Pulse Rate 128 H 128 H 127 H Respiratory Rate 25 H 25 H Blood Pressure Pulse Oximetry 90 Oxygen Delivery Mechanical Ventilation Oxygen Flow Rate Fraction of Inspired Oxygen 60 01/18/25 20:33 01/18/25 21:33 01/18/25 22:00 Temperature 102.0 F H 101.2 F H Pulse Rate 125 H Respiratory Rate Blood Pressure Pulse Oximetry Oxygen Delivery Oxygen Flow Rate Fraction of Inspired Oxygen 01/18/25 22:00 01/18/25 22:00 01/18/25 22:00 Temperature 101.2 F H Pulse Rate 125 H 125 H 125 H Respiratory Rate 24 H 24 H 24 H Blood Pressure 86/54 L Pulse Oximetry 94 Oxygen Delivery Oxygen Flow Rate Fraction of Inspired Oxygen 01/18/25 22:00 01/18/25 23:05 01/18/25 23:38 Temperature Pulse Rate 126 H 124 H 125 H Respiratory Rate 24 H 24 H Blood Pressure Pulse Oximetry 94 Oxygen Delivery Mechanical Ventilation Oxygen Flow Rate Fraction of Inspired Oxygen 60 01/19/25 00:00 01/19/25 00:00 01/19/25 00:00 Temperature 100.9 F H Pulse Rate 128 H 128 H Respiratory Rate 24 H Blood Pressure 84/48 L Pulse Oximetry 95 Oxygen Delivery Oxygen Flow Rate Fraction of Inspired Oxygen 60 01/19/25 00:00 01/19/25 00:00 01/19/25 00:00 Temperature Pulse Rate 128 H 128 H Respiratory Rate 24 H 24 H Blood Pressure Pulse Oximetry Oxygen Delivery Mechanical Ventilation Oxygen Flow Rate Fraction of Inspired Oxygen 60 01/19/25 00:55 01/19/25 01:00 01/19/25 01:32 Temperature 102.1 F H Pulse Rate 128 H 124 H Respiratory Rate 24 H Blood Pressure Pulse Oximetry 96 Oxygen Delivery Mechanical Ventilation Oxygen Flow Rate Fraction of Inspired Oxygen 60 01/19/25 01:55 01/19/25 02:00 01/19/25 02:00 Temperature 100.9 F H Pulse Rate 120 H 120 H Respiratory Rate 24 H 24 H Blood Pressure Pulse Oximetry Oxygen Delivery Oxygen Flow Rate Fraction of Inspired Oxygen 01/19/25 02:00 01/19/25 02:00 01/19/25 03:07 Temperature 100.9 F H Pulse Rate 120 H 120 H 119 H Respiratory Rate 24 H Blood Pressure 74/47 L Pulse Oximetry 96 95 Oxygen Delivery Mechanical Ventilation Oxygen Flow Rate Fraction of Inspired Oxygen 60 01/19/25 03:30 01/19/25 03:45 01/19/25 04:00 Temperature Pulse Rate 119 H 119 H 119 H Respiratory Rate Blood Pressure 78/48 L 82/51 L 80/53 L Pulse Oximetry Oxygen Delivery Oxygen Flow Rate Fraction of Inspired Oxygen 01/19/25 04:00 01/19/25 04:00 01/19/25 04:00 Temperature 99.9 F H Pulse Rate 119 H Respiratory Rate 24 H Blood Pressure 80/53 L Pulse Oximetry 95 Oxygen Delivery Mechanical Ventilation Oxygen Flow Rate Fraction of Inspired Oxygen 60 60 01/19/25 04:00 01/19/25 04:00 01/19/25 04:00 Temperature Pulse Rate 119 H 119 H 119 H Respiratory Rate 24 H 24 H Blood Pressure Pulse Oximetry Oxygen Delivery Oxygen Flow Rate Fraction of Inspired Oxygen 01/19/25 04:15 01/19/25 04:37 01/19/25 04:45 Temperature Pulse Rate 121 H 121 H 125 H Respiratory Rate Blood Pressure 105/60 113/70 Pulse Oximetry 94 Oxygen Delivery Mechanical Ventilation Oxygen Flow Rate Fraction of Inspired Oxygen 60 01/19/25 04:45 01/19/25 05:00 01/19/25 06:00 Temperature Pulse Rate 125 H 124 H 126 H Respiratory Rate 28 H Blood Pressure 97/61 L 101/71 Pulse Oximetry Oxygen Delivery Oxygen Flow Rate Fraction of Inspired Oxygen 01/19/25 06:00 01/19/25 06:00 01/19/25 06:00 Temperature Pulse Rate 126 H 126 H 126 H Respiratory Rate 24 H 24 H Blood Pressure 101/71 Pulse Oximetry 95 Oxygen Delivery Oxygen Flow Rate Fraction of Inspired Oxygen 01/19/25 06:15 01/19/25 07:00 01/19/25 07:58 Temperature Pulse Rate 126 H 127 H 127 H Respiratory Rate 24 H Blood Pressure 104/61 Pulse Oximetry 96 Oxygen Delivery Mechanical Ventilation Oxygen Flow Rate Fraction of Inspired Oxygen 60 01/19/25 08:00 01/19/25 08:13 Temperature 99.6 F Pulse Rate 128 H Respiratory Rate 24 H Blood Pressure 106/62 Pulse Oximetry 96 Oxygen Delivery Oxygen Flow Rate Fraction of Inspired Oxygen 50 Exam Narrative: General: Intubated and sedated, in no acute distress HEENT:? Pupils small and reactive bilaterally, sclera is clear, ETT in place Neck:? Supple, right IJ central line in place Respiratory:? Coarse breath sounds bilaterally, decreased at bases, rales bilaterally at bases, no wheezing Cardiac:? Sinus tachycardia Abdomen:? Soft, nontender, nondistended, hypoactive bowel sounds Extremities:? No edema, palpable pedal pulses Neuro:? Intubated, sedated, does not open her eyes or follow simple commands, withdraws to pain stimulus Skin:? No lesions noted Psych:? Unable to assess at this time Results Labs 01/19/25 04:33 01/19/25 04:33 Labs: Short CBC 01/18/25 01/19/25 Range/Units 13:25 04:33 WBC 10.3 H 5.9 (4.5-10.0) K/mm3 Hgb 15.8 H 12.1 D (12.0-15.0) g/dL Hct 49.8 H 34.9 L (37.0-47.0) % Plt Count 256 166 (150-375) k/mm3 BMP 01/18/25 01/18/25 01/18/25 13:25 13:25 13:25 Sodium Cancelled 140 Potassium Cancelled 4.5 Chloride Cancelled Carbon Dioxide BUN Creatinine Glucose Calcium 01/18/25 01/18/25 01/18/25 13:25 13:25 13:25 Sodium Potassium Chloride 102 Carbon Dioxide Cancelled < 5 L BUN Cancelled 24 H Creatinine Cancelled Glucose Calcium 01/18/25 01/18/25 01/18/25 13:25 13:25 13:25 Sodium Potassium Chloride Carbon Dioxide BUN Creatinine 1.53 H Glucose Cancelled 236 H Calcium Cancelled 10.5 H 01/18/25 01/18/25 01/19/25 18:34 22:49 00:49 Sodium 143 141 143 Potassium 4.3 3.5 4.5 Chloride 112 H 115 H 116 H Carbon Dioxide 9 L 14 L 16 L BUN 21 H 18 H 17 Creatinine 0.99 0.80 0.82 Glucose 133 H 165 H 139 H Calcium 9.0 8.4 8.7 01/19/25 04:33 Sodium 143 Potassium 4.3 Chloride 116 H Carbon Dioxide 17 L BUN 20 H Creatinine 0.95 Glucose 133 H Calcium 8.7 Liver Function 01/18/25 01/18/25 01/18/25 Range/Units 13:25 13:25 13:25 Total Bilirubin Cancelled 1.0 AST Cancelled 56 H ALT Cancelled Alkaline Phosphatase Albumin 01/18/25 01/18/25 01/18/25 Range/Units 13:25 13:25 13:25 Total Bilirubin AST ALT 36 H Alkaline Phosphatase Cancelled 96 Albumin Cancelled 4.5 01/19/25 Range/Units 04:33 Total Bilirubin 0.6 AST 63 H ALT 32 Alkaline Phosphatase 69 Albumin 2.5 L Urine 01/18/25 Range/Units 14:55 Urine Color Yellow (Yellow) Urine Appearance Clear (Clear) Urine pH 5.5 (5.0-9.0) Ur Specific [place] 1.042 H (1.001-1.035) Urine Protein 3+ H (Negative) mg/dL Urine Glucose (UA) 3+ H (Negative) mg/dL Quality VTE Prophylaxis VTE prophylaxis: pharmacologic ordered Hospitalist MIPS Advance Care Plan I have confirmed that the patient's Advanced Care Plan is present, code status is documented, or surrogate decision maker is listed in patient medical record.: Yes Medication Reconciliation I have utilized all available resources to obtain, update and review the patients current medications (includes all prescriptions, OTC, herbals, cannabis, and nutritional supplements).: Yes
[2025-01-19] MEDS: MIDAZOLAM HCL (*CRX) 2 MG/2 ML VIAL IV PUSH (10:10)
[2025-01-19] MEDS: PERFLUTREN LIPID MICROSPHERES 1.5 ML VIAL DILUTED TO 10 ML TOTAL VOLUME IV PUSH (10:20)
--- NOTE | 2025-01-19 10:34 | IVDEFINITY ---
Prior to administration of IV Definity the patient was educated on the risks and benefits of the imaging enhancing agent including potential adverse side effects. The patient verbalized understanding. Allergies were verified. No exclusion criteria were identified and at least one of the following inclusion criteria were met: 1) physician request, 2) patient technically difficult to image (per the [place] [employer] guidelines of two or more segments not discernable within the apical view), or 3) questionable left ventricular function. ?
[2025-01-19] MEDS: PANTOPRAZOLE SODIUM IV 40 MG VIAL IV PUSH (10:41)
[2025-01-19] MEDS: ENOXAPARIN 40 MG/0.4 ML SYRINGE SUB-Q (10:42)
[2025-01-19] MEDS: DOXYCYCLINE 100 MG/NS 100 ML 100 MG/100 ML BAG IVPB ×2 (10:50→21:39)
[2025-01-19 12:10] LABS: Glucose Point of Care 149 mg/dl (65-105)
--- NOTE | 2025-01-19 16:29 | P.PNIM_ITS ---
Progress Note: A&P Assessment and Plan (1) Acute hypoxic respiratory failure: Code(s): J96.01 - Acute respiratory failure with hypoxia Status: Acute Assessment and Plan: Patient presented the ED with shortness of breath, weakness, diabetic ketoacidosis, pneumonia 01/18: Intubated in the ED for airway protection and hypoxia CTA chest bilateal pneumonia and positive Flu A F/u cultures Continue Cefepime, Vanc and Doxyc on Tamiflu continue sedation protocol and mechanical ventilation per automobile inspector (2) Septic shock: Code(s): A41.9 - Sepsis, unspecified organism; R65.21 - Severe sepsis with septic shock Status: Acute Assessment and Plan: Patient presented with bilateral lower lobe infiltrates, pneumonia, hypotension overnight requiring central line placement on 01/19, and Levophed -continue Levophed to maintain SBP> 90 mmHg, as daughter stateThat patient has normal SBP is in the 80s to 90s -will switch Levophed to phenylephrine as patient is tachycardic, will wean Levophed to off -elevated CRP and procalcitonin on admission -patient febrile with a T-max of 102?, continue Tylenol -this could be related to influenza A and pneumonia -01/18: Blood cultures have been obtained and pending -01/19: Ordered sputum culture -will discontinue LR and start sodium bicarb infusion for a total of 1000 mL -given her tachycardia, will add albumin for 4 doses -check echocardiogram -check lactic acid (3) PNA (pneumonia): Code(s): J18.9 - Pneumonia, unspecified organism Status: Acute Assessment and Plan: Bilateral lower lobe pneumonia, continue antibiotics as above -currently intubated on mechanical ventilation (4) DKA (diabetic ketoacidosis): Code(s): E11.10 - Type 2 diabetes mellitus with ketoacidosis without coma Status: Acute Assessment and Plan: Patient presented with elevated beta hydroxybutyrate, anion gap metabolic acidosis, UA showed ketones, glucose -likely euglycemic diabetic ketoacidosis as patient was still taking Jardiance and metformin -this given 3 L IV fluids since admission, started on insulin infusion per DKA protocol -overnight patient was transition to long-acting insulin Lantus, and sliding scale insulin with Accu-Chek -continue to monitor (5) Flu: Code(s): J11.1 - Influenza due to unidentified influenza virus with other respiratory manifestations Status: Acute Assessment and Plan: Patient was tested positive for influenza A -started on Tamiflu (6) Chronic low blood pressure: Code(s): I95.89 - Other hypotension Status: Acute Assessment and Plan: Patient has chronic low blood pressures, according the daughter systolic blood pressures range in the 80s to 90s (7) Sinus tachycardia: Code(s): R00.0 - Tachycardia, unspecified Status: Acute Assessment and Plan: Has a history of chronic sinus tachycardia for which she is on metoprolol at home - will hold for now since patient is on pressors (8) PCOS (polycystic ovarian syndrome): Code(s): E28.2 - Polycystic ovarian syndrome Status: Acute Assessment and Plan: On spironolactone which will continue to hold for now due to patient being on pressors, hypovolemic hold estradiol (9) Hyperlipidemia: Code(s): E78.5 - Hyperlipidemia, unspecified Status: Acute Assessment and Plan: continue Atorvastatin Plan DVT prophylaxis: Lovenox Stress ulcer prophylaxis: Protonix Nutrition: Will start tube feeds Code Status: Full code Subjective Date/time seen: 01/19/25 16:29 Interval history: Intubated and sedated on Neosporine Review of Systems Review of Systems: ROS unobtainable: Yes unobtainable due to endotracheal tube, unobtainable due to medical condition and unobtainable due to mental status Exam Narrative: General: Intubated and sedated, in no acute distress HEENT:? Pupils small and reactive bilaterally, sclera is clear, ETT in place Neck:? Supple, right IJ central line in place Respiratory:? Coarse breath sounds bilaterally, decreased at bases, rales bilaterally at bases, no wheezing Cardiac:? Sinus tachycardia Abdomen:? Soft, nontender, nondistended, hypoactive bowel sounds Extremities:? No edema, palpable pedal pulses Neuro:? Intubated, sedated, does not open her eyes or follow simple commands, withdraws to pain stimulus Skin:? No lesions noted Psych:? Unable to assess at this time Objective Data Vital Signs Vital Signs: Vital Signs - 24 hr 01/18/25 16:48 01/18/25 17:17 01/18/25 17:49 Temperature 97.8 F 97.9 F Pulse Rate 98 123 H 123 H Respiratory Rate 20 20 Blood Pressure 111/65 109/61 Pulse Oximetry 99 96 98 Oxygen Delivery Mechanical Ventilation Fraction of Inspired Oxygen 60 01/18/25 17:50 01/18/25 18:00 01/18/25 18:04 Temperature 99.9 F H Pulse Rate 102 H 128 H 125 H Respiratory Rate 29 H 29 H Blood Pressure 106/60 Pulse Oximetry 99 91 96 Oxygen Delivery Mechanical Ventilation Mechanical Ventilation Fraction of Inspired Oxygen 60 60 01/18/25 18:15 01/18/25 18:39 01/18/25 18:40 Temperature 99.9 F H Pulse Rate 127 H 125 H 125 H Respiratory Rate 27 H 29 H 29 H Blood Pressure 109/67 Pulse Oximetry 96 Oxygen Delivery Fraction of Inspired Oxygen 01/18/25 19:00 01/18/25 20:00 01/18/25 20:00 Temperature 102.0 F H Pulse Rate 127 H 128 H Respiratory Rate 26 H 26 H Blood Pressure 111/61 112/63 Pulse Oximetry 100 100 Oxygen Delivery Mechanical Ventilation Fraction of Inspired Oxygen 60 01/18/25 20:00 01/18/25 20:00 01/18/25 20:00 Temperature Pulse Rate 128 H 128 H Respiratory Rate 25 H Blood Pressure Pulse Oximetry Oxygen Delivery Fraction of Inspired Oxygen 60 01/18/25 20:00 01/18/25 20:27 01/18/25 20:33 Temperature 102.0 F H Pulse Rate 128 H 127 H Respiratory Rate 25 H Blood Pressure Pulse Oximetry 90 Oxygen Delivery Mechanical Ventilation Fraction of Inspired Oxygen 60 01/18/25 21:33 01/18/25 22:00 01/18/25 22:00 Temperature 101.2 F H 101.2 F H Pulse Rate 125 H 125 H Respiratory Rate 24 H Blood Pressure 86/54 L Pulse Oximetry 94 Oxygen Delivery Fraction of Inspired Oxygen 01/18/25 22:00 01/18/25 22:00 01/18/25 22:00 Temperature Pulse Rate 125 H 125 H 126 H Respiratory Rate 24 H 24 H Blood Pressure Pulse Oximetry 94 Oxygen Delivery Mechanical Ventilation Fraction of Inspired Oxygen 60 01/18/25 23:05 01/18/25 23:38 01/19/25 00:00 Temperature Pulse Rate 124 H 125 H 128 H Respiratory Rate 24 H 24 H Blood Pressure Pulse Oximetry Oxygen Delivery Fraction of Inspired Oxygen 01/19/25 00:00 01/19/25 00:00 01/19/25 00:00 Temperature 100.9 F H Pulse Rate 128 H Respiratory Rate 24 H Blood Pressure 84/48 L Pulse Oximetry 95 Oxygen Delivery Mechanical Ventilation Fraction of Inspired Oxygen 60 60 01/19/25 00:00 01/19/25 00:00 01/19/25 00:55 Temperature 102.1 F H Pulse Rate 128 H 128 H Respiratory Rate 24 H 24 H Blood Pressure Pulse Oximetry Oxygen Delivery Fraction of Inspired Oxygen 01/19/25 01:00 01/19/25 01:32 01/19/25 01:55 Temperature 100.9 F H Pulse Rate 128 H 124 H Respiratory Rate 24 H Blood Pressure Pulse Oximetry 96 Oxygen Delivery Mechanical Ventilation Fraction of Inspired Oxygen 60 01/19/25 02:00 01/19/25 02:00 01/19/25 02:00 Temperature Pulse Rate 120 H 120 H 120 H Respiratory Rate 24 H 24 H Blood Pressure Pulse Oximetry Oxygen Delivery Fraction of Inspired Oxygen 01/19/25 02:00 01/19/25 03:07 01/19/25 03:30 Temperature 100.9 F H Pulse Rate 120 H 119 H 119 H Respiratory Rate 24 H Blood Pressure 74/47 L 78/48 L Pulse Oximetry 96 95 Oxygen Delivery Mechanical Ventilation Fraction of Inspired Oxygen 60 01/19/25 03:45 01/19/25 04:00 01/19/25 04:00 Temperature Pulse Rate 119 H 119 H Respiratory Rate Blood Pressure 82/51 L 80/53 L Pulse Oximetry Oxygen Delivery Fraction of Inspired Oxygen 60 01/19/25 04:00 01/19/25 04:00 01/19/25 04:00 Temperature 99.9 F H Pulse Rate 119 H 119 H Respiratory Rate 24 H Blood Pressure 80/53 L Pulse Oximetry 95 Oxygen Delivery Mechanical Ventilation Fraction of Inspired Oxygen 60 01/19/25 04:00 01/19/25 04:00 01/19/25 04:15 Temperature Pulse Rate 119 H 119 H 121 H Respiratory Rate 24 H 24 H Blood Pressure 105/60 Pulse Oximetry Oxygen Delivery Fraction of Inspired Oxygen 01/19/25 04:37 01/19/25 04:45 01/19/25 04:45 Temperature Pulse Rate 121 H 125 H 125 H Respiratory Rate 28 H Blood Pressure 113/70 Pulse Oximetry 94 Oxygen Delivery Mechanical Ventilation Fraction of Inspired Oxygen 60 01/19/25 05:00 01/19/25 06:00 01/19/25 06:00 Temperature Pulse Rate 124 H 126 H 126 H Respiratory Rate 24 H Blood Pressure 97/61 L 101/71 Pulse Oximetry Oxygen Delivery Fraction of Inspired Oxygen 01/19/25 06:00 01/19/25 06:00 01/19/25 06:15 Temperature Pulse Rate 126 H 126 H 126 H Respiratory Rate 24 H 24 H Blood Pressure 101/71 Pulse Oximetry 95 Oxygen Delivery Fraction of Inspired Oxygen 01/19/25 07:00 01/19/25 07:58 01/19/25 08:00 Temperature 99.6 F Pulse Rate 127 H 127 H 128 H Respiratory Rate 24 H Blood Pressure 104/61 106/62 Pulse Oximetry 96 96 Oxygen Delivery Mechanical Ventilation Fraction of Inspired Oxygen 60 01/19/25 08:00 01/19/25 08:00 01/19/25 08:00 Temperature Pulse Rate 132 H 128 H 128 H Respiratory Rate 24 H 24 H Blood Pressure 106/61 Pulse Oximetry Oxygen Delivery Fraction of Inspired Oxygen 01/19/25 08:00 01/19/25 08:00 01/19/25 08:00 Temperature Pulse Rate 128 H Respiratory Rate Blood Pressure Pulse Oximetry Oxygen Delivery Mechanical Ventilation Fraction of Inspired Oxygen 50 50 01/19/25 08:13 01/19/25 08:32 01/19/25 09:57 Temperature Pulse Rate 128 H 132 H Respiratory Rate Blood Pressure 106/73 117/68 Pulse Oximetry Oxygen Delivery Fraction of Inspired Oxygen 50 01/19/25 09:57 01/19/25 09:58 01/19/25 10:00 Temperature Pulse Rate 130 H 130 H 129 H Respiratory Rate 35 H 41 H 27 H Blood Pressure 103/59 L Pulse Oximetry 94 Oxygen Delivery Fraction of Inspired Oxygen 01/19/25 10:00 01/19/25 10:00 01/19/25 10:33 Temperature Pulse Rate 132 H 129 H 130 H Respiratory Rate Blood Pressure 103/59 L Pulse Oximetry 94 Oxygen Delivery Mechanical Ventilation Fraction of Inspired Oxygen 50 01/19/25 10:48 01/19/25 10:49 01/19/25 12:00 Temperature 99.7 F H Pulse Rate 132 H 129 H 129 H Respiratory Rate 26 H Blood Pressure 118/61 111/59 L 111/60 Pulse Oximetry 95 Oxygen Delivery Fraction of Inspired Oxygen 01/19/25 12:00 01/19/25 12:00 01/19/25 12:00 Temperature Pulse Rate 128 H Respiratory Rate Blood Pressure Pulse Oximetry Oxygen Delivery Mechanical Ventilation Fraction of Inspired Oxygen 50 50 01/19/25 12:00 01/19/25 12:00 01/19/25 12:00 Temperature Pulse Rate 129 H 129 H 129 H Respiratory Rate 26 H Blood Pressure 111/60 111/60 Pulse Oximetry Oxygen Delivery Fraction of Inspired Oxygen 01/19/25 12:00 01/19/25 12:20 01/19/25 12:26 Temperature Pulse Rate 129 H 127 H 127 H Respiratory Rate 26 H Blood Pressure 110/58 L 108/57 L Pulse Oximetry Oxygen Delivery Fraction of Inspired Oxygen 01/19/25 13:37 01/19/25 14:00 01/19/25 14:00 Temperature 99.9 F H Pulse Rate 125 H 125 H 125 H Respiratory Rate 24 H Blood Pressure 107/57 L Pulse Oximetry 94 95 Oxygen Delivery Mechanical Ventilation Fraction of Inspired Oxygen 50 01/19/25 14:00 01/19/25 14:00 01/19/25 14:00 Temperature Pulse Rate 128 H 128 H 128 H Respiratory Rate 24 H Blood Pressure 102/58 L 102/58 L Pulse Oximetry Oxygen Delivery Fraction of Inspired Oxygen 01/19/25 14:00 01/19/25 16:00 01/19/25 16:00 Temperature Pulse Rate 128 H 126 H 126 H Respiratory Rate 24 H Blood Pressure 109/58 L Pulse Oximetry Oxygen Delivery Fraction of Inspired Oxygen 01/19/25 16:26 Temperature Pulse Rate 126 H Respiratory Rate Blood Pressure 107/57 L Pulse Oximetry Oxygen Delivery Fraction of Inspired Oxygen Intake/Output Intake/Output: Intake & Output 01/16/25 01/17/25 01/18/25 01/19/25 23:59 23:59 23:59 23:59 Intake Total 3402.6 2329.1 Output Total 1200 1250 Balance 2202.6 1079.1 Meds/Results Medications: Active Medications Generic Name Dose Route Start Last Admin Trade Name Freq PRN Reason Stop Dose Admin Acetaminophen 650 mg 01/18/25 20:28 01/18/25 20:33 Acetaminophen Elixir 325 Mg/10.15 Ml Udc FEED TUBE 650 mg Q4H PRN Administration Mild Pain (1-3) or Fever Atorvastatin Calcium 20 mg 01/19/25 18:00 Atorvastatin 20 Mg Tablet PO QPM SESAR Dextrose 12.5 gm 01/18/25 23:15 Dextrose 50% 25 Gm/50 Ml Syringe IV PUSH PRN PRN Hypoglycemia Protocol Enoxaparin Sodium 40 mg 01/20/25 09:00 Enoxaparin 40 Mg/0.4 Ml Syringe SUB-Q DAILY SESAR Estradiol 1 mg 01/19/25 09:00 Estradiol 1 Mg Tablet PO DAILY SESAR Glucagon 1 mg 01/18/25 23:15 Glucagon For Inj 1 Mg Vial IM PRN PRN Hypoglycemia Protocol Glucose 15 gm 01/18/25 23:15 Glucose Oral Gel 15 Gm Of Glucse In 37.5 Gm Tube PO PRN PRN Hypoglycemia Protocol Cefepime HCl 2 gm in 50 mls @ 100 mls/hr 01/18/25 22:00 01/19/25 14:55 Maxipime 2 Gm/Ns 50 Ml IVPB Infused Q8H SESAR Infusion Doxycycline Hyclate 100 mg in 100 mls @ 100 mls/hr 01/18/25 23:00 01/19/25 11:50 Vibramycin 100 Mg/Ns 100 Ml IVPB Infused Q12H SESAR Infusion Dextrose 1,000 mls @ 100 mls/hr 01/18/25 23:15 Dextrose 5% 1,000 Ml IVPB PRN PRN Hypoglycemia Protocol Norepinephrine Bitartrate 8 mg in 250 mls @ 0 mls/hr 01/19/25 03:10 01/19/25 14:00 Levophed 8 Mg/D5w 250 Ml IV CONT 0 mcg/min .Q0M SESAR 0 mls/hr Titration Protocol 0 MCG/MIN Fentanyl Citrate 2,500 mcg in 250 mls @ 5 mls/hr 01/19/25 05:20 01/19/25 14:00 Fentanyl 2,500 Mcg/Ns 250 Ml IV CONT 50 mcg/hr .Q50H SESAR 5 mls/hr Titration Protocol 50 MCG/HR Midazolam HCl 100 mg in 100 mls @ 2 mls/hr 01/19/25 05:20 01/19/25 14:00 Versed 100 Mg/Ns 100 Ml IV CONT 2 mg/hr .Q50H SESAR 2 mls/hr Titration Protocol 2 MG/HR Phenylephrine HCl 50 mg/ 250 mls @ 7.5 mls/hr 01/19/25 07:30 01/19/25 16:26 Sodium Chloride IV CONT 25 mcg/min .[id number] SESAR 7.5 mls/hr Titration Protocol 25 MCG/MIN Sodium Bicarbonate 150 meq/ 1,100 mls @ 100 mls/hr 01/19/25 08:00 01/19/25 08:30 Sterile Water IV CONT 01/19/25 17:59 100 mls/hr .Q11H SESAR Administration Albumin Human 100 mls @ 60 mls/hr 01/19/25 07:42 01/19/25 13:52 Albutein IVPB 01/20/25 01:39 Infused Q6HR SESAR Infusion Insulin Aspart 2 - 5 units 01/19/25 01:00 01/19/25 12:06 Insulin Aspart (*Bkc) 100 Units/Ml SUB-Q Not Given Q4HR [facility] Protocol Insulin Glargine 12 units 01/19/25 21:00 Insulin Glargine (*Bkc) 100 Units/Ml SUB-Q HS [facility] Metoprolol Tartrate 25 mg 01/19/25 09:00 Metoprolol Tartrate 25 Mg Tablet PO Q12HR [facility] Multi-Ingred Cream/Lotion/Oil/Oint 1 applic 01/19/25 09:00 01/19/25 08:36 Mineral Oil/White Petrolatum Ointment EACH EYE 1 applic Q12HR SESAR Administration Ondansetron HCl 4 mg 01/19/25 01:20 Ondansetron Inj 4 Mg/2 Ml Vial IV PUSH Q4H PRN Nausea And Vomiting Oseltamivir Phosphate 30 mg 01/18/25 21:00 01/19/25 08:35 Oseltamivir Phosphate Oral Susp 75 Mg/12.5 Ml Syringe PO 01/23/25 20:59 30 mg Q12HR SESAR Administration Pantoprazole Sodium 40 mg 01/20/25 09:00 Pantoprazole Sodium Iv 40 Mg Vial IV PUSH QAM SESAR Sodium Chloride 10 ml 01/19/25 06:00 01/19/25 14:22 Central Line Flush IV PUSH 10 ml Q8HR SESAR Administration Sodium Chloride 20 ml 01/19/25 04:13 Central Line Flush IV PUSH PRN PRN after blood draws Spironolactone 100 mg 01/19/25 09:00 Spironolactone 50 Mg Tablet PO Q12HR SESAR Vancomycin HCl 1 each 01/18/25 14:49 Vancomycin For Acute Kidney Injury IVPB PRN PRN Vancomycin Protocol Radiology Results: ITS Impressions Chest CTA 01/18/25 15:25 IMPRESSION: 1. No pulmonary embolism. 2. Bilateral pneumonia in the lower lobes. Pneumonia in the lingula. Minimal changes of pneumonia in the right middle lobe. Pneumonia in the right upper lobe posteriorly. Follow-up to resolution is advised. Chest X-Ray 01/19/25 05:22 Impression: Support tubes, as above. No pneumothorax. Stable extensive bibasilar and perihilar airspace consolidation. Correlate for pulmonary edema versus bilateral pneumonia. Labs Labs: Laboratory Results - last 24 hr 01/18/25 01/18/25 01/18/25 15:11 16:35 16:47 WBC RBC Hgb Hct MCV MCH MCHC RDW Plt Count MPV Immature Gran % (Auto) Neut % (Auto) Lymph % (Auto) [place] % (Auto) Eos % (Auto) Baso % (Auto) Lymph # (Auto) [place] # (Auto) Eos # (Auto) Baso # (Auto) Abs Immat Gran (auto) Absolute Neuts (auto) Absolute Nucleated RBC Total Counted Neutrophils % (Manual) Band Neutrophils % Lymphocytes % (Manual) Monocytes % (Manual) Nucleated RBC % Abs Neuts (Manual) Abs Lymphs (Manual) Abs Monocytes (Manual) Platelet Estimate Anisocytosis Silvestre Cells Schistocytes Puncture Site Right radial ABG pH 7.163 L* ABG pCO2 26.4 L ABG pO2 71.2 L ABG PO2/FiO2 Ratio 1.19 ABG HCO3 9.3 L ABG O2 Saturation 90.1 L ABG O2 Content 18.0 ABG Base Excess -17.8 A-a Gradient 327.6 Oxyhemoglobin 91.3 Carboxyhemoglobin Methemoglobin Reduced Hemoglobin Total Hemoglobin 14.0 O2 Delivery Device Ventilator O2 Liters/Min Not Reportable Minute Volume Not Reportable Vent Rate 24 Vent Mode Assist control FiO2 60 Tidal Volume 400 PEEP 5 Peak Inspir Pressure Not Reportable Pressure Support Not Reportable Sodium Potassium Chloride Carbon Dioxide Anion Gap BUN Creatinine Estim Creat Clear Calc Estimated GFR Glucose POC Capillary Glucose 151 H Hemoglobin A1c Lactic Acid Calcium Phosphorus Magnesium Total Bilirubin AST ALT Alkaline Phosphatase C-Reactive Protein Total Protein Albumin Procalcitonin Nasal MRSA (PCR) Not detected 01/18/25 01/18/25 01/18/25 17:53 18:34 18:42 WBC RBC Hgb Hct MCV MCH MCHC RDW Plt Count MPV Immature Gran % (Auto) Neut % (Auto) Lymph % (Auto) [place] % (Auto) Eos % (Auto) Baso % (Auto) Lymph # (Auto) [place] # (Auto) Eos # (Auto) Baso # (Auto) Abs Immat Gran (auto) Absolute Neuts (auto) Absolute Nucleated RBC Total Counted Neutrophils % (Manual) Band Neutrophils % Lymphocytes % (Manual) Monocytes % (Manual) Nucleated RBC % Abs Neuts (Manual) Abs Lymphs (Manual) Abs Monocytes (Manual) Platelet Estimate Anisocytosis Silvestre Cells Schistocytes Puncture Site ABG pH ABG pCO2 ABG pO2 ABG PO2/FiO2 Ratio ABG HCO3 ABG O2 Saturation ABG O2 Content ABG Base Excess A-a Gradient Oxyhemoglobin Carboxyhemoglobin Methemoglobin Reduced Hemoglobin Total Hemoglobin O2 Delivery Device O2 Liters/Min Minute Volume Vent Rate Vent Mode FiO2 Tidal Volume PEEP Peak Inspir Pressure Pressure Support Sodium 143 Potassium 4.3 Chloride 112 H Carbon Dioxide 9 L Anion Gap 22 H BUN 21 H Creatinine 0.99 Estim Creat Clear Calc 50 Estimated GFR 59 Glucose 133 H POC Capillary Glucose 129 H Hemoglobin A1c 5.9 H Lactic Acid Calcium 9.0 Phosphorus 2.5 Magnesium 2.3 Total Bilirubin AST ALT Alkaline Phosphatase C-Reactive Protein Total Protein Albumin Procalcitonin 7.4 Nasal MRSA (PCR) Not detected 01/18/25 01/18/25 01/18/25 19:20 20:12 21:15 WBC RBC Hgb Hct MCV MCH MCHC RDW Plt Count MPV Immature Gran % (Auto) Neut % (Auto) Lymph % (Auto) [place] % (Auto) Eos % (Auto) Baso % (Auto) Lymph # (Auto) [place] # (Auto) Eos # (Auto) Baso # (Auto) Abs Immat Gran (auto) Absolute Neuts (auto) Absolute Nucleated RBC Total Counted Neutrophils % (Manual) Band Neutrophils % Lymphocytes % (Manual) Monocytes % (Manual) Nucleated RBC % Abs Neuts (Manual) Abs Lymphs (Manual) Abs Monocytes (Manual) Platelet Estimate Anisocytosis Silvestre Cells Schistocytes Puncture Site ABG pH ABG pCO2 ABG pO2 ABG PO2/FiO2 Ratio ABG HCO3 ABG O2 Saturation ABG O2 Content ABG Base Excess A-a Gradient Oxyhemoglobin Carboxyhemoglobin Methemoglobin Reduced Hemoglobin Total Hemoglobin O2 Delivery Device O2 Liters/Min Minute Volume Vent Rate Vent Mode FiO2 Tidal Volume PEEP Peak Inspir Pressure Pressure Support Sodium Potassium Chloride Carbon Dioxide Anion Gap BUN Creatinine Estim Creat Clear Calc Estimated GFR Glucose POC Capillary Glucose 136 H 198 H 182 H Hemoglobin A1c Lactic Acid Calcium Phosphorus Magnesium Total Bilirubin AST ALT Alkaline Phosphatase C-Reactive Protein Total Protein Albumin Procalcitonin Nasal MRSA (PCR) 01/18/25 01/18/25 01/18/25 21:39 22:14 22:49 WBC RBC Hgb Hct MCV MCH MCHC RDW Plt Count MPV Immature Gran % (Auto) Neut % (Auto) Lymph % (Auto) [place] % (Auto) Eos % (Auto) Baso % (Auto) Lymph # (Auto) [place] # (Auto) Eos # (Auto) Baso # (Auto) Abs Immat Gran (auto) Absolute Neuts (auto) Absolute Nucleated RBC Total Counted Neutrophils % (Manual) Band Neutrophils % Lymphocytes % (Manual) Monocytes % (Manual) Nucleated RBC % Abs Neuts (Manual) Abs Lymphs (Manual) Abs Monocytes (Manual) Platelet Estimate Anisocytosis Silvestre Cells Schistocytes Puncture Site Right radial ABG pH 7.409 ABG pCO2 24.8 L ABG pO2 82.2 ABG PO2/FiO2 Ratio 1.37 ABG HCO3 15.3 L ABG O2 Saturation 96.4 ABG O2 Content 18.4 ABG Base Excess -7.5 A-a Gradient 318.3 Oxyhemoglobin 96.2 Carboxyhemoglobin 0.1 Methemoglobin 0.2 Reduced Hemoglobin 3.5 Total Hemoglobin 13.6 O2 Delivery Device Ventilator O2 Liters/Min Not Reportable Minute Volume Not Reportable Vent Rate 24 Vent Mode Assist control FiO2 60 Tidal Volume 400 PEEP 5 Peak Inspir Pressure Not Reportable Pressure Support Not Reportable Sodium 141 Potassium 3.5 Chloride 115 H Carbon Dioxide 14 L Anion Gap 12 BUN 18 H Creatinine 0.80 Estim Creat Clear Calc 61 Estimated GFR > 60 Glucose 165 H POC Capillary Glucose 167 H Hemoglobin A1c Lactic Acid Calcium 8.4 Phosphorus Magnesium Total Bilirubin AST ALT Alkaline Phosphatase C-Reactive Protein Total Protein Albumin Procalcitonin Nasal MRSA (PCR) 01/18/25 01/19/25 01/19/25 23:07 00:03 00:49 WBC RBC Hgb Hct MCV MCH MCHC RDW Plt Count MPV Immature Gran % (Auto) Neut % (Auto) Lymph % (Auto) [place] % (Auto) Eos % (Auto) Baso % (Auto) Lymph # (Auto) [place] # (Auto) Eos # (Auto) Baso # (Auto) Abs Immat Gran (auto) Absolute Neuts (auto) Absolute Nucleated RBC Total Counted Neutrophils % (Manual) Band Neutrophils % Lymphocytes % (Manual) Monocytes % (Manual) Nucleated RBC % Abs Neuts (Manual) Abs Lymphs (Manual) Abs Monocytes (Manual) Platelet Estimate Anisocytosis Silvestre Cells Schistocytes Puncture Site ABG pH ABG pCO2 ABG pO2 ABG PO2/FiO2 Ratio ABG HCO3 ABG O2 Saturation ABG O2 Content ABG Base Excess A-a Gradient Oxyhemoglobin Carboxyhemoglobin Methemoglobin Reduced Hemoglobin Total Hemoglobin O2 Delivery Device O2 Liters/Min Minute Volume Vent Rate Vent Mode FiO2 Tidal Volume PEEP Peak Inspir Pressure Pressure Support Sodium 143 Potassium 4.5 Chloride 116 H Carbon Dioxide 16 L Anion Gap 11 BUN 17 Creatinine 0.82 Estim Creat Clear Calc 60 Estimated GFR > 60 Glucose 139 H POC Capillary Glucose 164 H 152 H Hemoglobin A1c Lactic Acid Calcium 8.7 Phosphorus Magnesium Total Bilirubin AST ALT Alkaline Phosphatase C-Reactive Protein Total Protein Albumin Procalcitonin Nasal MRSA (PCR) 01/19/25 01/19/25 01/19/25 04:33 04:43 07:40 WBC 5.9 RBC 3.74 L Hgb 12.1 D Hct 34.9 L MCV 93.3 D MCH 32.4 MCHC 34.7 RDW 13.7 Plt Count 166 MPV 9.6 Immature Gran % (Auto) Not Reportable Neut % (Auto) Not Reportable Lymph % (Auto) Not Reportable [place] % (Auto) Not Reportable Eos % (Auto) Not Reportable Baso % (Auto) Not Reportable Lymph # (Auto) Not Reportable [place] # (Auto) Not Reportable Eos # (Auto) Not Reportable Baso # (Auto) Not Reportable Abs Immat Gran (auto) Not Reportable Absolute Neuts (auto) Not Reportable Absolute Nucleated RBC Not Reportable Total Counted 100 Neutrophils % (Manual) 57 Band Neutrophils % 22 H Lymphocytes % (Manual) 13.0 L Monocytes % (Manual) 8 Nucleated RBC % Not Reportable Abs Neuts (Manual) 4.66 Abs Lymphs (Manual) 0.76 L Abs Monocytes (Manual) 0.47 Platelet Estimate Adequate Anisocytosis 1+ Silvestre Cells 1+ Schistocytes None seen Puncture Site Left radial ABG pH 7.372 ABG pCO2 30.0 L ABG pO2 100.7 H ABG PO2/FiO2 Ratio 1.68 ABG HCO3 17.0 L ABG O2 Saturation 97.5 ABG O2 Content 12.8 L ABG Base Excess -7.3 A-a Gradient 294.1 Oxyhemoglobin 96.9 Carboxyhemoglobin 0.3 Methemoglobin 0.3 Reduced Hemoglobin 2.5 Total Hemoglobin 9.3 L O2 Delivery Device Ventilator O2 Liters/Min Not Reportable Minute Volume Not Reportable Vent Rate 24 Vent Mode Cmv FiO2 60 Tidal Volume 330 PEEP 5 Peak Inspir Pressure Not Reportable Pressure Support Not Reportable Sodium 143 Potassium 4.3 Chloride 116 H Carbon Dioxide 17 L Anion Gap 10 BUN 20 H Creatinine 0.95 Estim Creat Clear Calc 52 Estimated GFR > 60 Glucose 133 H POC Capillary Glucose 131 H Hemoglobin A1c Lactic Acid Calcium 8.7 Phosphorus Magnesium 1.8 Total Bilirubin 0.6 AST 63 H ALT 32 Alkaline Phosphatase 69 C-Reactive Protein 43.3 H Total Protein 5.5 L Albumin 2.5 L Procalcitonin 12.5 Nasal MRSA (PCR) 01/19/25 01/19/25 07:53 12:06 WBC RBC Hgb Hct MCV MCH MCHC RDW Plt Count MPV Immature Gran % (Auto) Neut % (Auto) Lymph % (Auto) [place] % (Auto) Eos % (Auto) Baso % (Auto) Lymph # (Auto) [place] # (Auto) Eos # (Auto) Baso # (Auto) Abs Immat Gran (auto) Absolute Neuts (auto) Absolute Nucleated RBC Total Counted Neutrophils % (Manual) Band Neutrophils % Lymphocytes % (Manual) Monocytes % (Manual) Nucleated RBC % Abs Neuts (Manual) Abs Lymphs (Manual) Abs Monocytes (Manual) Platelet Estimate Anisocytosis [place] Cells Schistocytes Puncture Site ABG pH ABG pCO2 ABG pO2 ABG PO2/FiO2 Ratio ABG HCO3 ABG O2 Saturation ABG O2 Content ABG Base Excess A-a Gradient Oxyhemoglobin Carboxyhemoglobin Methemoglobin Reduced Hemoglobin Total Hemoglobin O2 Delivery Device O2 Liters/Min Minute Volume Vent Rate Vent Mode FiO2 Tidal Volume PEEP Peak Inspir Pressure Pressure Support Sodium Potassium Chloride Carbon Dioxide Anion Gap BUN Creatinine Estim Creat Clear Calc Estimated GFR Glucose POC Capillary Glucose 149 H Hemoglobin A1c Lactic Acid 1.8 Calcium Phosphorus Magnesium Total Bilirubin AST ALT Alkaline Phosphatase C-Reactive Protein Total Protein Albumin Procalcitonin Nasal MRSA (PCR) Quality VTE Prophylaxis VTE prophylaxis: pharmacologic ordered
[2025-01-19] MEDS: ATORVASTATIN 20 MG TABLET PO (17:34)
[2025-01-19] MEDS: ACETAMINOPHEN ELIXIR 325 MG/10.15 ML UDC 650 MG FEED TUBE ×2 (17:35→21:37)
[2025-01-19 17:55] LABS: Glucose Point of Care 133 mg/dl (65-105)
[2025-01-19 18:41] LABS: Anion Gap 15 mmol/L (4-12); Blood Urea Nitrogen 17 mg/dL (7-17); Calcium 8.5 mg/dL (8.4-10.2); Carbon Dioxide 19 mmol/L (22-30); Chloride 110 mmol/L (98-107); Estimated CRCL calculation 57 ml/min; Estimated Glomerular Filt Rate > 60; Glucose 127 mg/dL (65-110); Potassium 3.8 mmol/L (3.4-5.0); Sodium 144 mmol/L (137-145)
[2025-01-19 19:12] LABS: Vancomycin Random < 5.0 ug/mL (10-20)
[2025-01-19] MEDS: VANCOMYCIN 1,000 MG/NS 250 ML 1,000 MG/250 ML BAG 250 MG IVPB (20:00)
[2025-01-19] MEDS: INSULIN GLARGINE (*BKC) 100 UNITS/ML 12 UNITS SUB-Q (20:23)
[2025-01-19 20:31] LABS: Glucose Point of Care 146 mg/dl (65-105)
[2025-01-20] VITALS (29 sets, daily range): BP systolic 88–109; BP diastolic 47–60; PULSE 104–118; RESP 24–25; TEMP 36.9–38.5; O2SAT 94–98; BMI 24.1
[2025-01-20] MEDS: ALBUMIN HUMAN 25% 25 GM/100 ML 100 ML IVPB (00:03)
[2025-01-20 00:15] LABS: Glucose Point of Care 172 mg/dl (65-105)
[2025-01-20] MEDS: FENTANYL 2,500MCG/NS250ML(*CRX 2,500 MCG/250 ML BAG IV CONT (03:50)
[2025-01-20] MEDS: INSULIN ASPART (*BKC) 100 UNITS/ML SUB-Q ×4 (05:10→16:54)
[2025-01-20 05:54] LABS: Alveolar/Arterial O2 Gradient 196.7 mmHg; Base Excess ABG -4.8 mEq/l (+/-2.0); Fractional Inspired Oxygen 45 %; HCO3 ABG 20.2 mEq/l (22.0-26.0); Oxygen Content ABG 14.5 %vol (16.0-22.0); Oxygen Saturation ABG 95.6 % (95.0-100.0); PCO2 ABG 37.3 mmHg (35.0-45.0); PO2 ABG 81.7 mmHg (80.0-100.0); PO2 FiO2 Ratio Arterial Blood 1.82 %; Total Hemoglobin 10.7 g/dL (12.0-18.0); pH ABG 7.352 (7.350-7.450)
[2025-01-20] MEDS: CEFEPIME 2 GM/NS 50 ML 2 GM/50 ML BAG IVPB ×2 (06:01→18:36)
[2025-01-20] MEDS: CENTRAL LINE FLUSH 10 ML IV PUSH ×3 (06:01→22:11)
[2025-01-20 06:11] LABS: Glucose Point of Care 202 mg/dl (65-105)
[2025-01-20 06:15] LABS: Hematocrit 28.5 % (37.0-47.0); Hemoglobin 9.6 g/dL (12.0-15.0); Mean Corpuscular HGB Conc 33.7 g/dl (32-36); Mean Corpuscular Hemoglobin 32.3 pg (26-34); Platelet Count Result 120 k/mm3 (150-375); Red Blood Count 2.97 M/mm3 (4.2-5.4); Red Cell Distribution Width 14.6 % (11.5-14.5); White Blood Count 11.5 K/mm3 (4.5-10.0)
[2025-01-20 06:23] LABS: Alanine Aminotransferase 28 U/L (6-35); Albumin Level 3.2 g/dL (3.5-5.1); Alkaline Phosphatase 75 U/L (38-126); Anion Gap 15 mmol/L (4-12); Aspartate Amino Transferase 68 U/L (14-36); Bilirubin,Total 0.9 mg/dL (0.2-1.3); Blood Urea Nitrogen 24 mg/dL (7-17); Calcium 8.5 mg/dL (8.4-10.2); Carbon Dioxide 20 mmol/L (22-30); Chloride 111 mmol/L (98-107); Estimated CRCL calculation 46 ml/min; Estimated Glomerular Filt Rate 53; Glucose 202 mg/dL (65-110); Magnesium 2.4 mg/dL (1.6-2.3); Phosphorus 1.3 mg/dL (2.5-4.5); Potassium 3.6 mmol/L (3.4-5.0); Sodium 146 mmol/L (137-145); Total Protein 5.9 g/dL (6.3-8.2)
[2025-01-20 06:48] LABS: Procalcitonin. 6.5 ng/mL
[2025-01-20 06:51] LABS: CRP. 43.3 mg/dL (<1.0)
[2025-01-20 06:53] LABS: Band Neutrophils Percent 53 % (0-6); Lymphocytes Absolute Manual 0.92 K/mm3 (1.1-4.5); Lymphocytes Percent Manual 8 % (18-44); Monocytes Absolute Manual 0.11 K/mm3 (0.1-0.90); Monocytes Percent Manual 1 % (3-9); Neutrophils Absolute Manual 10.46 K/mm3 (1.3-6.7); Neutrophils Percent Manual 38 % (46-73); Total Cells Counted 100
[2025-01-20 06:54] LABS: Platelet Estimate Slightly Decreased (Adequate); Schistocytes None Seen
--- NOTE | 2025-01-20 07:38 | WPDINTPN ---
Progress Note: A&P Assessment and Plan (1) Acute hypoxic respiratory failure: Code(s): J96.01 - Acute respiratory failure with hypoxia Status: Acute Assessment and Plan: 01/18: Patient presented the ED with shortness of breath, weakness, diabetic ketoacidosis, pneumonia 01/18: Intubated in the ED for airway protection and hypoxia -remains on CMV mode of ventilation, peep of 5, 60% FiO2, titrate FiO2 to maintain O2 sat > 92% -chest x-ray and ABGs reviewed, ventilator adjusted -chest x-ray and CTA chest showed bilateral lower lobe pneumonia -continue cefepime, doxycycline and vancomycin (01/18) -positive for influenza A, On Tamiflu 01/15: CTA chest IMPRESSION: 1. No pulmonary embolism. 2. Bilateral pneumonia in the lower lobes. Pneumonia in the lingula. Minimal changes of pneumonia in the right middle lobe. Pneumonia in the right upper lobe posteriorly. Follow-up to resolution is advised. (2) Septic shock: Code(s): A41.9 - Sepsis, unspecified organism; R65.21 - Severe sepsis with septic shock Status: Acute Assessment and Plan: Patient presented with bilateral lower lobe infiltrates, pneumonia, hypotension overnight requiring central line placement on 01/19, and Levophed -continue Levophed to maintain SBP> 90 mmHg, as daughter stateThat patient has normal SBP is in the 80s to 90s -01/19: switch Levophed to phenylephrine as patient is tachycardic, will wean Levophed to off -elevated CRP and procalcitonin on admission -patient febrile with a T-max of 102.3?, continue Tylenol -this could be related to influenza A and pneumonia -01/20: currently off all pressors -01/18: Blood cultures growing Gram-positive cocci in clusters 2/2 bottles -01/19: Sputum cultures obtained and pending -status post IV fluids and albumin with improvement in heart -lactic acid remains normal -01/20: Repeat blood cultures 1625: Echocardiogram Summary 1. Left ventricular chamber dimension is normal. 2. Left ventricular systolic function is normal, estimated at 60-65. 3. The left ventricular diastolic function is grade I diastolic dysfunction. 4. Right ventricular chamber dimension is mildly enlarged. 5. Right ventricular systolic function is normal. 6. Right atrial chamber dimension is mildly enlarged. 7. There is mild to moderate tricuspid valve regurgitation. (3) PNA (pneumonia): Code(s): J18.9 - Pneumonia, unspecified organism Status: Acute Assessment and Plan: Bilateral lower lobe pneumonia, continue antibiotics as above -currently intubated on mechanical ventilation (4) DKA (diabetic ketoacidosis): Code(s): E11.10 - Type 2 diabetes mellitus with ketoacidosis without coma Status: Acute Assessment and Plan: Patient presented with elevated beta hydroxybutyrate, anion gap metabolic acidosis, UA showed ketones, glucose -likely euglycemic diabetic ketoacidosis as patient was still taking Jardiance and metformin -this given 3 L IV fluids since admission, started on insulin infusion per DKA protocol -overnight patient was transition to long-acting insulin Lantus, and sliding scale insulin with Accu-Chek -continue to monitor (5) Flu: Code(s): J11.1 - Influenza due to unidentified influenza virus with other respiratory manifestations Status: Acute Assessment and Plan: Patient was tested positive for influenza A -continue Tamiflu (6) Chronic low blood pressure: Code(s): I95.89 - Other hypotension Status: Acute Assessment and Plan: Patient has chronic low blood pressures, according the daughter systolic blood pressures range in the 80s to 90s (7) Sinus tachycardia: Code(s): R00.0 - Tachycardia, unspecified Status: Acute Assessment and Plan: Has a history of chronic sinus tachycardia for which she is on metoprolol at home - will hold for now since patient is on pressors (8) PCOS (polycystic ovarian syndrome): Code(s): E28.2 - Polycystic ovarian syndrome Status: Acute Assessment and Plan: On spironolactone which will continue to hold for now due to patient being on pressors, hypovolemic hold estradiol (9) Hyperlipidemia: Code(s): E78.5 - Hyperlipidemia, unspecified Status: Acute Assessment and Plan: continue Atorvastatin Plan DVT prophylaxis: Lovenox Stress ulcer prophylaxis: Protonix Nutrition: Tolerating tube feeds Code Status: Full code Critical Care Time Spent: 34 minutes Discussed with daughter at bedside and updated her with patient's condition and plan of care. I answered all questions Due to a high probability of clinically significant, life threatening deterioration, the patient required my highest level of preparedness to intervene emergently and I personally spent this critical care time directly and personally managing the patient. This critical care time included obtaining a history; examining the patient; pulse oximetry; ordering and review of studies; arranging urgent treatment with development of a management plan; evaluation of patient's response to treatment; frequent reassessment; and discussions with other providers. It was exclusive of separately billable procedures and treating other patients and teaching time. Please see Assessment and Plan section and the rest of the note for further information on patient assessment and treatment This dictation may have been done utilizing a voice recognition system. Attempts have been made to correct errors. However, there may be uncorrected grammatical, spelling, and recognitions errors present. Subjective Date/time seen: 01/20/25 07:38 Interval history: Reason for consult: Septic shock, acute respiratory failure, pneumonia, euglycemic diabetic ketoacidosis, 01/20/2025: Patient seen and examined in the ICU, remains intubated on CMV mode of ventilation, peep of 5, 45% FiO2. Sedated with fentanyl and Versed infusion, does not open her eyes or follow simple commands, does not withdraw to pain stimulus. Off Dez-Synephrine, heart rate much improved, back to baseline with HR in the 100s. Off all IV fluids, urine output has been adequate common tolerating tube feeds, T-max of 102.3? for which she has received Tylenol. Tolerating tube feeds Review of Systems Review of Systems: ROS unobtainable: Yes unobtainable due to endotracheal tube and unobtainable due to medical condition Exam Narrative: General: Intubated and sedated, in no acute distress HEENT:? Pupils small and reactive bilaterally, sclera is clear, ETT in place Neck:? Supple, right IJ central line in place Respiratory:? Coarse breath sounds bilaterally, decreased at bases, rales bilaterally at bases, no wheezing Cardiac:? Sinus tachycardia, S1-S2 was normal, no murmurs Abdomen:? Soft, nontender, nondistended, hypoactive bowel sounds Extremities:? No edema, palpable pedal pulses Neuro:? Intubated, sedated, does not open her eyes or follow simple commands, withdraws to pain stimulus Skin:? No lesions noted Psych:? Unable to assess at this time Objective Data Vital Signs Vital Signs: Vital Signs - 24 hr 01/19/25 07:58 01/19/25 08:00 01/19/25 08:00 Temperature 99.6 F Pulse Rate 127 H 128 H 132 H Respiratory Rate 24 H Blood Pressure 106/62 106/61 Pulse Oximetry 96 96 Oxygen Delivery Mechanical Ventilation Fraction of Inspired Oxygen 60 01/19/25 08:00 01/19/25 08:00 01/19/25 08:00 Temperature Pulse Rate 128 H 128 H Respiratory Rate 24 H 24 H Blood Pressure Pulse Oximetry Oxygen Delivery Fraction of Inspired Oxygen 50 01/19/25 08:00 01/19/25 08:00 01/19/25 08:13 Temperature Pulse Rate 128 H Respiratory Rate Blood Pressure Pulse Oximetry Oxygen Delivery Mechanical Ventilation Fraction of Inspired Oxygen 50 50 01/19/25 08:32 01/19/25 09:57 01/19/25 09:57 Temperature Pulse Rate 128 H 132 H 130 H Respiratory Rate 35 H Blood Pressure 106/73 117/68 Pulse Oximetry Oxygen Delivery Fraction of Inspired Oxygen 01/19/25 09:58 01/19/25 10:00 01/19/25 10:00 Temperature Pulse Rate 130 H 129 H 132 H Respiratory Rate 41 H 27 H Blood Pressure 103/59 L 103/59 L Pulse Oximetry 94 Oxygen Delivery Fraction of Inspired Oxygen 01/19/25 10:00 01/19/25 10:33 01/19/25 10:48 Temperature Pulse Rate 129 H 130 H 132 H Respiratory Rate Blood Pressure 118/61 Pulse Oximetry 94 Oxygen Delivery Mechanical Ventilation Fraction of Inspired Oxygen 50 01/19/25 10:49 01/19/25 12:00 01/19/25 12:00 Temperature 99.7 F H Pulse Rate 129 H 129 H 128 H Respiratory Rate 26 H Blood Pressure 111/59 L 111/60 Pulse Oximetry 95 Oxygen Delivery Fraction of Inspired Oxygen 01/19/25 12:00 01/19/25 12:00 01/19/25 12:00 Temperature Pulse Rate 129 H Respiratory Rate Blood Pressure 111/60 Pulse Oximetry Oxygen Delivery Mechanical Ventilation Fraction of Inspired Oxygen 50 50 01/19/25 12:00 01/19/25 12:00 01/19/25 12:00 Temperature Pulse Rate 129 H 129 H 129 H Respiratory Rate 26 H 26 H Blood Pressure 111/60 Pulse Oximetry Oxygen Delivery Fraction of Inspired Oxygen 01/19/25 12:20 01/19/25 12:26 01/19/25 13:37 Temperature Pulse Rate 127 H 127 H 125 H Respiratory Rate Blood Pressure 110/58 L 108/57 L Pulse Oximetry 94 Oxygen Delivery Mechanical Ventilation Fraction of Inspired Oxygen 50 01/19/25 14:00 01/19/25 14:00 01/19/25 14:00 Temperature 99.9 F H Pulse Rate 125 H 125 H 128 H Respiratory Rate 24 H Blood Pressure 107/57 L 102/58 L Pulse Oximetry 95 Oxygen Delivery Fraction of Inspired Oxygen 01/19/25 14:00 01/19/25 14:00 01/19/25 14:00 Temperature Pulse Rate 128 H 128 H 128 H Respiratory Rate 24 H 24 H Blood Pressure 102/58 L Pulse Oximetry Oxygen Delivery Fraction of Inspired Oxygen 01/19/25 16:00 01/19/25 16:00 01/19/25 16:00 Temperature Pulse Rate 126 H 126 H 126 H Respiratory Rate 24 H Blood Pressure 109/58 L Pulse Oximetry Oxygen Delivery Fraction of Inspired Oxygen 01/19/25 16:00 01/19/25 16:00 01/19/25 16:00 Temperature Pulse Rate 129 H Respiratory Rate 24 H Blood Pressure Pulse Oximetry Oxygen Delivery Mechanical Ventilation Fraction of Inspired Oxygen 50 50 01/19/25 16:00 01/19/25 16:00 01/19/25 16:26 Temperature Pulse Rate 129 H 123 H 126 H Respiratory Rate 19 Blood Pressure 104/55 L 106/49 L 107/57 L Pulse Oximetry 94 Oxygen Delivery Fraction of Inspired Oxygen 01/19/25 17:19 01/19/25 17:35 01/19/25 18:00 Temperature 100.3 F H Pulse Rate 130 H Respiratory Rate Blood Pressure 107/57 L Pulse Oximetry Oxygen Delivery Mechanical Ventilation Fraction of Inspired Oxygen 45 01/19/25 18:00 01/19/25 18:00 01/19/25 18:00 Temperature Pulse Rate 130 H 130 H 130 H Respiratory Rate 24 H 22 H Blood Pressure Pulse Oximetry Oxygen Delivery Fraction of Inspired Oxygen 01/19/25 18:00 01/19/25 18:01 01/19/25 18:41 Temperature 100.3 F H 100.2 F H Pulse Rate 133 H 130 H Respiratory Rate 25 H Blood Pressure 113/57 L 107/57 L Pulse Oximetry 93 Oxygen Delivery Fraction of Inspired Oxygen 01/19/25 19:45 01/19/25 20:00 01/19/25 20:00 Temperature 102.5 F H Pulse Rate 136 H 131 H Respiratory Rate 24 H Blood Pressure 103/49 L Pulse Oximetry 93 93 Oxygen Delivery Mechanical Ventilation Fraction of Inspired Oxygen 45 45 01/19/25 20:00 01/19/25 20:00 01/19/25 20:00 Temperature Pulse Rate 130 H 130 H 130 H Respiratory Rate 24 H 24 H Blood Pressure 103/47 L Pulse Oximetry Oxygen Delivery Fraction of Inspired Oxygen 01/19/25 20:00 01/19/25 20:00 01/19/25 20:10 Temperature Pulse Rate 130 H 132 H 131 H Respiratory Rate 24 H Blood Pressure 103/47 L Pulse Oximetry 93 Oxygen Delivery Mechanical Ventilation Fraction of Inspired Oxygen 45 01/19/25 21:37 01/19/25 22:00 01/19/25 22:00 Temperature 102.3 F H 102.3 F H Pulse Rate 127 H 127 H Respiratory Rate 24 H Blood Pressure 110/57 L Pulse Oximetry 92 Oxygen Delivery Fraction of Inspired Oxygen 01/19/25 22:00 01/19/25 22:00 01/19/25 22:00 Temperature Pulse Rate 127 H 127 H 127 H Respiratory Rate 24 H 24 H Blood Pressure 110/57 L Pulse Oximetry Oxygen Delivery Fraction of Inspired Oxygen 01/19/25 22:00 01/19/25 22:37 01/19/25 23:00 Temperature 101.1 F H 101.1 F H Pulse Rate 127 H 123 H Respiratory Rate 24 H Blood Pressure 110/57 L 96/46 L Pulse Oximetry 93 Oxygen Delivery Fraction of Inspired Oxygen 01/19/25 23:20 01/20/25 00:00 01/20/25 00:00 Temperature Pulse Rate 122 H 114 H 113 H Respiratory Rate 24 H Blood Pressure 88/48 L Pulse Oximetry 93 Oxygen Delivery Mechanical Ventilation Fraction of Inspired Oxygen 45 01/20/25 00:00 01/20/25 00:00 01/20/25 00:00 Temperature 101.3 F H Pulse Rate 114 H 113 H 113 H Respiratory Rate 24 H 24 H Blood Pressure 88/48 L 88/48 L Pulse Oximetry 94 Oxygen Delivery Fraction of Inspired Oxygen 01/20/25 00:00 01/20/25 00:00 01/20/25 00:15 Temperature Pulse Rate 113 H 113 H Respiratory Rate 24 H Blood Pressure Pulse Oximetry 94 Oxygen Delivery Mechanical Ventilation Fraction of Inspired Oxygen 45 45 01/20/25 01:04 01/20/25 01:45 01/20/25 02:00 Temperature Pulse Rate 112 H 110 H 111 H Respiratory Rate 24 H Blood Pressure 90/47 L Pulse Oximetry 95 95 Oxygen Delivery Mechanical Ventilation Fraction of Inspired Oxygen 45 01/20/25 02:00 01/20/25 02:00 01/20/25 02:00 Temperature 99.6 F Pulse Rate 110 H 110 H 110 H Respiratory Rate 24 H 24 H Blood Pressure 91/48 L 91/48 L Pulse Oximetry 94 Oxygen Delivery Fraction of Inspired Oxygen 01/20/25 02:00 01/20/25 02:00 01/20/25 03:50 Temperature Pulse Rate 110 H 110 H 110 H Respiratory Rate 24 H 24 H Blood Pressure 91/48 L Pulse Oximetry Oxygen Delivery Fraction of Inspired Oxygen 01/20/25 03:50 01/20/25 04:00 01/20/25 04:00 Temperature Pulse Rate 110 H 111 H 111 H Respiratory Rate 24 H 24 H Blood Pressure 96/50 L Pulse Oximetry Oxygen Delivery Fraction of Inspired Oxygen 01/20/25 04:00 01/20/25 04:00 01/20/25 04:00 Temperature 99.1 F Pulse Rate 111 H 111 H 111 H Respiratory Rate 24 H 24 H Blood Pressure 96/50 L 96/50 L Pulse Oximetry 95 Oxygen Delivery Fraction of Inspired Oxygen 01/20/25 04:00 01/20/25 04:00 01/20/25 04:00 Temperature Pulse Rate 111 H 111 H Respiratory Rate 24 H Blood Pressure Pulse Oximetry 95 Oxygen Delivery Mechanical Ventilation Fraction of Inspired Oxygen 45 45 01/20/25 05:00 01/20/25 06:00 01/20/25 06:00 Temperature 99.2 F Pulse Rate 109 H 111 H 110 H Respiratory Rate 25 H Blood Pressure 104/57 L Pulse Oximetry 95 95 Oxygen Delivery Mechanical Ventilation Fraction of Inspired Oxygen 45 01/20/25 06:00 01/20/25 06:00 01/20/25 06:00 Temperature Pulse Rate 111 H 111 H 111 H Respiratory Rate 24 H 24 H Blood Pressure 104/57 L Pulse Oximetry Oxygen Delivery Fraction of Inspired Oxygen 01/20/25 06:00 01/20/25 07:24 Temperature 98.5 F Pulse Rate 111 H Respiratory Rate Blood Pressure 104/57 L Pulse Oximetry Oxygen Delivery Fraction of Inspired Oxygen Intake/Output Intake/Output: Intake & Output 01/17/25 01/18/25 01/19/25 01/20/25 23:59 23:59 23:59 23:59 Intake Total 3402.6 2647.0 954.0 Output Total 1200 2050 900 Balance 2202.6 597.0 54.0 Meds/Results Medications: Active Medications Generic Name Dose Route Start Last Admin Trade Name Freq PRN Reason Stop Dose Admin Acetaminophen 650 mg 01/18/25 20:28 01/19/25 21:37 Acetaminophen Elixir 325 Mg/10.15 Ml Udc FEED TUBE 650 mg Q4H PRN Administration Mild Pain (1-3) or Fever Atorvastatin Calcium 20 mg 01/19/25 18:00 01/19/25 17:34 Atorvastatin 20 Mg Tablet PO 20 mg QPM SESAR Administration Dextrose 12.5 gm 01/18/25 23:15 Dextrose 50% 25 Gm/50 Ml Syringe IV PUSH PRN PRN Hypoglycemia Protocol Enoxaparin Sodium 40 mg 01/20/25 09:00 Enoxaparin 40 Mg/0.4 Ml Syringe SUB-Q DAILY SESAR Estradiol 1 mg 01/19/25 09:00 Estradiol 1 Mg Tablet PO DAILY SESAR Glucagon 1 mg 01/18/25 23:15 Glucagon For Inj 1 Mg Vial IM PRN PRN Hypoglycemia Protocol Glucose 15 gm 01/18/25 23:15 Glucose Oral Gel 15 Gm Of Glucse In 37.5 Gm Tube PO PRN PRN Hypoglycemia Protocol Cefepime HCl 2 gm in 50 mls @ 100 mls/hr 01/18/25 22:00 01/20/25 06:01 Maxipime 2 Gm/Ns 50 Ml IVPB 100 mls/hr Q8H SESAR Administration Doxycycline Hyclate 100 mg in 100 mls @ 100 mls/hr 01/18/25 23:00 01/19/25 22:40 Vibramycin 100 Mg/Ns 100 Ml IVPB Infused Q12H SESAR Infusion Dextrose 1,000 mls @ 100 mls/hr 01/18/25 23:15 Dextrose 5% 1,000 Ml IVPB PRN PRN Hypoglycemia Protocol Norepinephrine Bitartrate 8 mg in 250 mls @ 0 mls/hr 01/19/25 03:10 01/20/25 06:00 Levophed 8 Mg/D5w 250 Ml IV CONT 0 mcg/min .Q0M SESAR 0 mls/hr Titration Protocol 0 MCG/MIN Fentanyl Citrate 2,500 mcg in 250 mls @ 5 mls/hr 01/19/25 05:20 01/20/25 06:00 Fentanyl 2,500 Mcg/Ns 250 Ml IV CONT 50 mcg/hr .Q50H SESAR 5 mls/hr Titration Protocol 50 MCG/HR Midazolam HCl 100 mg in 100 mls @ 2 mls/hr 01/19/25 05:20 01/20/25 06:00 Versed 100 Mg/Ns 100 Ml IV CONT 2 mg/hr .Q50H SESAR 2 mls/hr Titration Protocol 2 MG/HR Phenylephrine HCl 50 mg/ 250 mls @ 0 mls/hr 01/19/25 07:30 01/20/25 06:00 Sodium Chloride IV CONT 0 mcg/min .Q0M SESAR 0 mls/hr Titration Protocol 0 MCG/MIN Insulin Aspart 2 - 5 units 01/19/25 01:00 01/20/25 05:10 Insulin Aspart (*Bkc) 100 Units/Ml SUB-Q 2 units Q4HR SESAR Administration Protocol Insulin Glargine 12 units 01/19/25 21:00 01/19/25 20:23 Insulin Glargine (*Bkc) 100 Units/Ml SUB-Q 12 units HS SESAR Administration Metoprolol Tartrate 25 mg 01/19/25 09:00 Metoprolol Tartrate 25 Mg Tablet PO Q12HR SESAR Multi-Ingred Cream/Lotion/Oil/Oint 1 applic 01/19/25 09:00 01/19/25 20:20 Mineral Oil/White Petrolatum Ointment EACH EYE 1 applic Q12HR SESAR Administration Ondansetron HCl 4 mg 01/19/25 01:20 Ondansetron Inj 4 Mg/2 Ml Vial IV PUSH Q4H PRN Nausea And Vomiting Oseltamivir Phosphate 30 mg 01/18/25 21:00 01/19/25 20:19 Oseltamivir Phosphate Oral Susp 75 Mg/12.5 Ml Syringe PO 01/23/25 20:59 30 mg Q12HR SESAR Administration Pantoprazole Sodium 40 mg 01/20/25 09:00 Pantoprazole Sodium Iv 40 Mg Vial IV PUSH QAM SESAR Sodium Chloride 10 ml 01/19/25 06:00 01/20/25 06:01 Central Line Flush IV PUSH 10 ml Q8HR SESAR Administration Sodium Chloride 20 ml 01/19/25 04:13 Central Line Flush IV PUSH PRN PRN after blood draws Spironolactone 100 mg 01/19/25 09:00 Spironolactone 50 Mg Tablet PO Q12HR SESAR Vancomycin HCl 1 each 01/18/25 14:49 Vancomycin For Acute Kidney Injury IVPB PRN PRN Vancomycin Protocol Radiology Results: ITS Impressions Chest CTA 01/18/25 15:25 IMPRESSION: 1. No pulmonary embolism. 2. Bilateral pneumonia in the lower lobes. Pneumonia in the lingula. Minimal changes of pneumonia in the right middle lobe. Pneumonia in the right upper lobe posteriorly. Follow-up to resolution is advised. Chest X-Ray 01/20/25 05:38 Impression: Extensive bilateral airspace consolidation. Correlate for pulmonary edema versus bilateral pneumonia. Minimal left pleural effusion. Stable support tubes. Labs Labs: Laboratory Results - last 24 hr 01/18/25 01/19/25 01/19/25 21:39 07:40 07:53 WBC RBC Hgb Hct MCV MCH MCHC RDW Plt Count MPV Immature Gran % (Auto) Neut % (Auto) Lymph % (Auto) [facility] % (Auto) Eos % (Auto) Baso % (Auto) Lymph # (Auto) [facility] # (Auto) Eos # (Auto) Baso # (Auto) Abs Immat Gran (auto) Absolute Neuts (auto) Absolute Nucleated RBC Total Counted Neutrophils % (Manual) Band Neutrophils % Lymphocytes % (Manual) Monocytes % (Manual) Nucleated RBC % Abs Neuts (Manual) Abs Lymphs (Manual) Abs Monocytes (Manual) Platelet Estimate Schistocytes Vent Rate 24 Vent Mode Assist control Tidal Volume 400 PEEP 5 Sodium Potassium Chloride Carbon Dioxide Anion Gap BUN Creatinine Estim Creat Clear Calc Estimated GFR Glucose POC Capillary Glucose 131 H Lactic Acid 1.8 Calcium Phosphorus Magnesium Total Bilirubin AST ALT Alkaline Phosphatase C-Reactive Protein Total Protein Albumin Procalcitonin Random Vancomycin 01/19/25 01/19/25 01/19/25 12:06 17:32 17:46 WBC RBC Hgb Hct MCV MCH MCHC RDW Plt Count MPV Immature Gran % (Auto) Neut % (Auto) Lymph % (Auto) [facility] % (Auto) Eos % (Auto) Baso % (Auto) Lymph # (Auto) [facility] # (Auto) Eos # (Auto) Baso # (Auto) Abs Immat Gran (auto) Absolute Neuts (auto) Absolute Nucleated RBC Total Counted Neutrophils % (Manual) Band Neutrophils % Lymphocytes % (Manual) Monocytes % (Manual) Nucleated RBC % Abs Neuts (Manual) Abs Lymphs (Manual) Abs Monocytes (Manual) Platelet Estimate Schistocytes Vent Rate Vent Mode Tidal Volume PEEP Sodium 144 Potassium 3.8 Chloride 110 H Carbon Dioxide 19 L Anion Gap 15 H BUN 17 Creatinine 0.87 Estim Creat Clear Calc 57 Estimated GFR > 60 Glucose 127 H POC Capillary Glucose 149 H 133 H Lactic Acid Calcium 8.5 Phosphorus Magnesium Total Bilirubin AST ALT Alkaline Phosphatase C-Reactive Protein Total Protein Albumin Procalcitonin Random Vancomycin < 5.0 L 01/19/25 01/20/25 01/20/25 20:22 00:00 05:05 WBC RBC Hgb Hct MCV MCH MCHC RDW Plt Count MPV Immature Gran % (Auto) Neut % (Auto) Lymph % (Auto) [facility] % (Auto) Eos % (Auto) Baso % (Auto) Lymph # (Auto) [facility] # (Auto) Eos # (Auto) Baso # (Auto) Abs Immat Gran (auto) Absolute Neuts (auto) Absolute Nucleated RBC Total Counted Neutrophils % (Manual) Band Neutrophils % Lymphocytes % (Manual) Monocytes % (Manual) Nucleated RBC % Abs Neuts (Manual) Abs Lymphs (Manual) Abs Monocytes (Manual) Platelet Estimate Schistocytes Vent Rate Vent Mode Tidal Volume PEEP Sodium Potassium Chloride Carbon Dioxide Anion Gap BUN Creatinine Estim Creat Clear Calc Estimated GFR Glucose POC Capillary Glucose 146 H 172 H 202 H Lactic Acid Calcium Phosphorus Magnesium Total Bilirubin AST ALT Alkaline Phosphatase C-Reactive Protein Total Protein Albumin Procalcitonin Random Vancomycin 01/20/25 05:55 WBC 11.5 H RBC 2.97 L Hgb 9.6 L Hct 28.5 L MCV 96.0 MCH 32.3 MCHC 33.7 RDW 14.6 H Plt Count 120 L MPV 10.0 Immature Gran % (Auto) Not Reportable Neut % (Auto) Not Reportable Lymph % (Auto) Not Reportable [facility] % (Auto) Not Reportable Eos % (Auto) Not Reportable Baso % (Auto) Not Reportable Lymph # (Auto) Not Reportable [facility] # (Auto) Not Reportable Eos # (Auto) Not Reportable Baso # (Auto) Not Reportable Abs Immat Gran (auto) Not Reportable Absolute Neuts (auto) Not Reportable Absolute Nucleated RBC Not Reportable Total Counted 100 Neutrophils % (Manual) 38 L Band Neutrophils % 53 H Lymphocytes % (Manual) 8 L Monocytes % (Manual) 1 L Nucleated RBC % Not Reportable Abs Neuts (Manual) 10.46 H Abs Lymphs (Manual) 0.92 L Abs Monocytes (Manual) 0.11 Platelet Estimate Slightly decreased Schistocytes None seen Vent Rate Vent Mode Tidal Volume PEEP Sodium 146 H Potassium 3.6 Chloride 111 H Carbon Dioxide 20 L Anion Gap 15 H BUN 24 H Creatinine 1.08 H Estim Creat Clear Calc 46 Estimated GFR 53 L Glucose 202 H POC Capillary Glucose Lactic Acid Calcium 8.5 Phosphorus 1.3 L Magnesium 2.4 H Total Bilirubin 0.9 AST 68 H ALT 28 Alkaline Phosphatase 75 C-Reactive Protein 43.3 H Total Protein 5.9 L Albumin 3.2 L Procalcitonin 6.5 Random Vancomycin Quality VTE Prophylaxis VTE prophylaxis: pharmacologic ordered
[2025-01-20] MEDS: POTASSIUM/PHOSPHORUS/SODIUM 1.5 GM PACKET 1 PACKET PO (07:43)
[2025-01-20] MEDS: MINERAL OIL/WHITE PETROLATUM OINTMENT 1 APPLIC EACH EYE ×2 (09:06→20:24)
[2025-01-20] MEDS: PANTOPRAZOLE SODIUM IV 40 MG VIAL IV PUSH (09:06)
[2025-01-20] MEDS: ENOXAPARIN 40 MG/0.4 ML SYRINGE SUB-Q (09:06)
[2025-01-20] MEDS: OSELTAMIVIR PHOSPHATE ORAL SUSP 75 MG/12.5 ML SYRINGE 30 MG PO ×2 (09:12→20:24)
[2025-01-20 09:32] LABS: Glucose Point of Care 220 mg/dl (65-105)
[2025-01-20] MEDS: DOXYCYCLINE 100 MG/NS 100 ML 100 MG/100 ML BAG IVPB ×2 (10:24→23:59)
[2025-01-20] MEDS: ACETAMINOPHEN ELIXIR 325 MG/10.15 ML UDC 650 MG FEED TUBE (10:25)
--- NOTE | 2025-01-20 11:01 | PCFNICU ---
ICU Rounding Note: Pt current nutrition is Vital AF 1.2 at 45 ml/hr. Last recorded weight is 63.8 kg, stable Bowel Motility: Last reported BM 01/19 Labs Reviewed:Na 146, BUN 24, Cr 1.08, Glu 202 Meds Noted: Fentanyl, Versed, Lantus, Lovenox. Skin: WNL Additional Notes: Patient remains on mechanical vent. Tube feedings are being tolerated of Vital AF 1.2 at 45 ml/hr. Flush increased today from 30 ml q 4 hours to 60 ml q 4 hours due to elevated Na. Recommend leaving same tube feeding for today. Following daily in ICU rounds. Will monitor weight, labs, skin, diet orders, meds, tube feeding tolerance every Saturday and Saturday.
[2025-01-20 12:46] LABS: Glucose Point of Care 205 mg/dl (65-105)
[2025-01-20] MEDS: MIDAZOLAM 100MG/NS 100ML(*CRX) 100 MG/100 ML BAG IV CONT (14:33)
--- NOTE | 2025-01-20 15:54 | P.PNIM_ITS ---
Progress Note: A&P Assessment and Plan (1) Acute hypoxic respiratory failure: Code(s): J96.01 - Acute respiratory failure with hypoxia Status: Acute Assessment and Plan: 01/18: Patient presented the ED with shortness of breath, weakness, diabetic ketoacidosis, pneumonia 01/18: Intubated in the ED for airway protection and hypoxia -remains on CMV mode of ventilation, peep of 5, 60% FiO2, titrate FiO2 to ma intain O2 sat > 92% -chest x-ray and ABGs reviewed, ventilator adjusted -chest x-ray and CTA chest showed bilateral lower lobe pneumonia -continue cefepime, doxycycline and vancomycin (01/18) -positive for influenza A, On Tamiflu 01/15: CTA chest IMPRESSION: 1. No pulmonary embolism. 2. Bilateral pneumonia in the lower lobes. Pneumonia in the lingula. Minimal changes of pneumonia in the right middle lobe. Pneumonia in the right upper lobe posteriorly. Follow-up to resolution is advised. (2) Septic shock: Code(s): A41.9 - Sepsis, unspecified organism; R65.21 - Severe sepsis with septic shock Status: Acute Assessment and Plan: Patient presented with bilateral lower lobe infiltrates, pneumonia, hypotension overnight requiring central line placement on 01/19, and Levophed -continue Levophed to maintain SBP> 90 mmHg, as daughter stateThat patient has normal SBP is in the 80s to 90s -01/19: switch Levophed to phenylephrine as patient is tachycardic, will wean Levophed to off -elevated CRP and procalcitonin on admission -patient febrile with a T-max of 102.3?, continue Tylenol -this could be related to influenza A and pneumonia -01/20: currently off all pressors -01/18: Blood cultures growing Gram-positive cocci in clusters 2/2 bottles -01/19: Sputum cultures obtained and pending -status post IV fluids and albumin with improvement in heart -lactic acid remains normal -01/20: Repeat blood cultures 1625: Echocardiogram Summary 1. Left ventricular chamber dimension is normal. 2. Left ventricular systolic function is normal, estimated at 60-65. 3. The left ventricular diastolic function is grade I diastolic dysfunction. 4. Right ventricular chamber dimension is mildly enlarged. 5. Right ventricular systolic function is normal. 6. Right atrial chamber dimension is mildly enlarged. 7. There is mild to moderate tricuspid valve regurgitation. (3) PNA (pneumonia): Code(s): J18.9 - Pneumonia, unspecified organism Status: Acute Assessment and Plan: Bilateral lower lobe pneumonia, continue antibiotics as above -currently intubated on mechanical ventilation (4) DKA (diabetic ketoacidosis): Code(s): E11.10 - Type 2 diabetes mellitus with ketoacidosis without coma Status: Acute Assessment and Plan: Patient presented with elevated beta hydroxybutyrate, anion gap metabolic acidosis, UA showed ketones, glucose -likely euglycemic diabetic ketoacidosis as patient was still taking Jardiance and metformin -this given 3 L IV fluids since admission, started on insulin infusion per DKA protocol -overnight patient was transition to long-acting insulin Lantus, and sliding scale insulin with Accu-Chek -continue to monitor (5) Flu: Code(s): J11.1 - Influenza due to unidentified influenza virus with other respiratory manifestations Status: Acute Assessment and Plan: Patient was tested positive for influenza A -continue Tamiflu (6) Chronic low blood pressure: Code(s): I95.89 - Other hypotension Status: Acute Assessment and Plan: Patient has chronic low blood pressures, according the daughter systolic blood pressures range in the 80s to 90s (7) Sinus tachycardia: Code(s): R00.0 - Tachycardia, unspecified Status: Acute Assessment and Plan: Has a history of chronic sinus tachycardia for which she is on metoprolol at home - will hold for now since patient is on pressors (8) PCOS (polycystic ovarian syndrome): Code(s): E28.2 - Polycystic ovarian syndrome Status: Acute Assessment and Plan: On spironolactone which will continue to hold for now due to patient being on pressors, hypovolemic hold estradiol (9) Hyperlipidemia: Code(s): E78.5 - Hyperlipidemia, unspecified Status: Acute Assessment and Plan: continue Atorvastatin Plan DVT prophylaxis: Lovenox Stress ulcer prophylaxis: Protonix Nutrition: Tolerating tube feeds Code Status: Full code Subjective Date/time seen: 01/20/25 15:54 Interval history: Intubated and sedated Review of Systems Review of Systems: ROS unobtainable: Yes unobtainable due to endotracheal tube, unobtainable due to medical condition and unobtainable due to mental status Exam Narrative: General: Intubated and sedated, in no acute distress HEENT:? Pupils small and reactive bilaterally, sclera is clear, ETT in place Neck:? Supple, right IJ central line in place Respiratory:? Coarse breath sounds bilaterally, decreased at bases, rales bilaterally at bases, no wheezing Cardiac:? Sinus tachycardia, S1-S2 was normal, no murmurs Abdomen:? Soft, nontender, nondistended, hypoactive bowel sounds Extremities:? No edema, palpable pedal pulses Neuro:? Intubated, sedated, does not open her eyes or follow simple commands, withdraws to pain stimulus Skin:? No lesions noted Psych:? Unable to assess at this time Objective Data Vital Signs Vital Signs: Vital Signs - 24 hr 01/19/25 16:00 01/19/25 16:00 01/19/25 16:00 Temperature Pulse Rate 126 H 126 H 126 H Respiratory Rate 24 H Blood Pressure 109/58 L Pulse Oximetry Oxygen Delivery Fraction of Inspired Oxygen 01/19/25 16:00 01/19/25 16:00 01/19/25 16:00 Temperature Pulse Rate 129 H Respiratory Rate 24 H Blood Pressure Pulse Oximetry Oxygen Delivery Mechanical Ventilation Fraction of Inspired Oxygen 50 50 01/19/25 16:00 01/19/25 16:00 01/19/25 16:26 Temperature Pulse Rate 129 H 123 H 126 H Respiratory Rate 19 Blood Pressure 104/55 L 106/49 L 107/57 L Pulse Oximetry 94 Oxygen Delivery Fraction of Inspired Oxygen 01/19/25 17:19 01/19/25 17:35 01/19/25 18:00 Temperature 100.3 F H Pulse Rate 130 H Respiratory Rate Blood Pressure 107/57 L Pulse Oximetry Oxygen Delivery Mechanical Ventilation Fraction of Inspired Oxygen 45 01/19/25 18:00 01/19/25 18:00 01/19/25 18:00 Temperature Pulse Rate 130 H 130 H 130 H Respiratory Rate 24 H 22 H Blood Pressure Pulse Oximetry Oxygen Delivery Fraction of Inspired Oxygen 01/19/25 18:00 01/19/25 18:01 01/19/25 18:41 Temperature 100.3 F H 100.2 F H Pulse Rate 133 H 130 H Respiratory Rate 25 H Blood Pressure 113/57 L 107/57 L Pulse Oximetry 93 Oxygen Delivery Fraction of Inspired Oxygen 01/19/25 19:45 01/19/25 20:00 01/19/25 20:00 Temperature 102.5 F H Pulse Rate 136 H 131 H Respiratory Rate 24 H Blood Pressure 103/49 L Pulse Oximetry 93 93 Oxygen Delivery Mechanical Ventilation Fraction of Inspired Oxygen 45 45 01/19/25 20:00 01/19/25 20:00 01/19/25 20:00 Temperature Pulse Rate 130 H 130 H 130 H Respiratory Rate 24 H 24 H Blood Pressure 103/47 L Pulse Oximetry Oxygen Delivery Fraction of Inspired Oxygen 01/19/25 20:00 01/19/25 20:00 01/19/25 20:10 Temperature Pulse Rate 130 H 132 H 131 H Respiratory Rate 24 H Blood Pressure 103/47 L Pulse Oximetry 93 Oxygen Delivery Mechanical Ventilation Fraction of Inspired Oxygen 45 01/19/25 21:37 01/19/25 22:00 01/19/25 22:00 Temperature 102.3 F H 102.3 F H Pulse Rate 127 H 127 H Respiratory Rate 24 H Blood Pressure 110/57 L Pulse Oximetry 92 Oxygen Delivery Fraction of Inspired Oxygen 01/19/25 22:00 01/19/25 22:00 01/19/25 22:00 Temperature Pulse Rate 127 H 127 H 127 H Respiratory Rate 24 H 24 H Blood Pressure 110/57 L Pulse Oximetry Oxygen Delivery Fraction of Inspired Oxygen 01/19/25 22:00 01/19/25 22:37 01/19/25 23:00 Temperature 101.1 F H 101.1 F H Pulse Rate 127 H 123 H Respiratory Rate 24 H Blood Pressure 110/57 L 96/46 L Pulse Oximetry 93 Oxygen Delivery Fraction of Inspired Oxygen 01/19/25 23:20 01/20/25 00:00 01/20/25 00:00 Temperature Pulse Rate 122 H 114 H 113 H Respiratory Rate 24 H Blood Pressure 88/48 L Pulse Oximetry 93 Oxygen Delivery Mechanical Ventilation Fraction of Inspired Oxygen 45 01/20/25 00:00 01/20/25 00:00 01/20/25 00:00 Temperature 101.3 F H Pulse Rate 114 H 113 H 113 H Respiratory Rate 24 H 24 H Blood Pressure 88/48 L 88/48 L Pulse Oximetry 94 Oxygen Delivery Fraction of Inspired Oxygen 01/20/25 00:00 01/20/25 00:00 01/20/25 00:15 Temperature Pulse Rate 113 H 113 H Respiratory Rate 24 H Blood Pressure Pulse Oximetry 94 Oxygen Delivery Mechanical Ventilation Fraction of Inspired Oxygen 45 45 01/20/25 01:04 01/20/25 01:45 01/20/25 02:00 Temperature Pulse Rate 112 H 110 H 111 H Respiratory Rate 24 H Blood Pressure 90/47 L Pulse Oximetry 95 95 Oxygen Delivery Mechanical Ventilation Fraction of Inspired Oxygen 45 01/20/25 02:00 01/20/25 02:00 01/20/25 02:00 Temperature 99.6 F Pulse Rate 110 H 110 H 110 H Respiratory Rate 24 H 24 H Blood Pressure 91/48 L 91/48 L Pulse Oximetry 94 Oxygen Delivery Fraction of Inspired Oxygen 01/20/25 02:00 01/20/25 02:00 01/20/25 03:50 Temperature Pulse Rate 110 H 110 H 110 H Respiratory Rate 24 H 24 H Blood Pressure 91/48 L Pulse Oximetry Oxygen Delivery Fraction of Inspired Oxygen 01/20/25 03:50 01/20/25 04:00 01/20/25 04:00 Temperature Pulse Rate 110 H 111 H 111 H Respiratory Rate 24 H 24 H Blood Pressure 96/50 L Pulse Oximetry Oxygen Delivery Fraction of Inspired Oxygen 01/20/25 04:00 01/20/25 04:00 01/20/25 04:00 Temperature 99.1 F Pulse Rate 111 H 111 H 111 H Respiratory Rate 24 H 24 H Blood Pressure 96/50 L 96/50 L Pulse Oximetry 95 Oxygen Delivery Fraction of Inspired Oxygen 01/20/25 04:00 01/20/25 04:00 01/20/25 04:00 Temperature Pulse Rate 111 H 111 H Respiratory Rate 24 H Blood Pressure Pulse Oximetry 95 Oxygen Delivery Mechanical Ventilation Fraction of Inspired Oxygen 45 45 01/20/25 05:00 01/20/25 06:00 01/20/25 06:00 Temperature 99.2 F Pulse Rate 109 H 111 H 110 H Respiratory Rate 25 H Blood Pressure 104/57 L Pulse Oximetry 95 95 Oxygen Delivery Mechanical Ventilation Fraction of Inspired Oxygen 45 01/20/25 06:00 01/20/25 06:00 01/20/25 06:00 Temperature Pulse Rate 111 H 111 H 111 H Respiratory Rate 24 H 24 H Blood Pressure 104/57 L Pulse Oximetry Oxygen Delivery Fraction of Inspired Oxygen 01/20/25 06:00 01/20/25 07:24 01/20/25 08:00 Temperature 98.5 F Pulse Rate 111 H 109 H Respiratory Rate 24 H Blood Pressure 104/57 L 105/54 L Pulse Oximetry 98 Oxygen Delivery Fraction of Inspired Oxygen 01/20/25 08:00 01/20/25 08:00 01/20/25 08:00 Temperature Pulse Rate 109 H 109 H Respiratory Rate 24 H Blood Pressure 105/54 L Pulse Oximetry Oxygen Delivery Fraction of Inspired Oxygen 45 01/20/25 08:00 01/20/25 08:00 01/20/25 08:00 Temperature Pulse Rate 109 H 109 H Respiratory Rate 24 H Blood Pressure 105/54 L Pulse Oximetry 98 Oxygen Delivery Mechanical Ventilation Fraction of Inspired Oxygen 45 01/20/25 08:00 01/20/25 08:02 01/20/25 10:00 Temperature Pulse Rate 109 H 109 H 117 H Respiratory Rate Blood Pressure Pulse Oximetry 98 Oxygen Delivery Mechanical Ventilation Fraction of Inspired Oxygen 45 01/20/25 10:00 01/20/25 10:00 01/20/25 10:00 Temperature Pulse Rate 117 H 117 H 117 H Respiratory Rate 24 H 24 H Blood Pressure 107/54 L 107/54 L Pulse Oximetry 98 Oxygen Delivery Fraction of Inspired Oxygen 01/20/25 10:00 01/20/25 10:00 01/20/25 10:25 Temperature 100.1 F H Pulse Rate 117 H 117 H Respiratory Rate 24 H Blood Pressure 107/54 L Pulse Oximetry Oxygen Delivery Fraction of Inspired Oxygen 01/20/25 10:25 01/20/25 11:13 01/20/25 11:25 Temperature 101.1 F H 101 F H Pulse Rate 118 H Respiratory Rate Blood Pressure Pulse Oximetry 96 Oxygen Delivery Mechanical Ventilation Fraction of Inspired Oxygen 45 01/20/25 11:29 01/20/25 12:00 01/20/25 12:00 Temperature 101 F H Pulse Rate 114 H Respiratory Rate 24 H Blood Pressure Pulse Oximetry Oxygen Delivery Fraction of Inspired Oxygen 45 01/20/25 12:00 01/20/25 12:00 01/20/25 12:00 Temperature Pulse Rate 114 H 114 H Respiratory Rate 24 H Blood Pressure 100/51 L Pulse Oximetry 96 Oxygen Delivery Mechanical Ventilation Fraction of Inspired Oxygen 45 01/20/25 12:00 01/20/25 12:00 01/20/25 14:00 Temperature 100.1 F H Pulse Rate 114 H 115 H 113 H Respiratory Rate 24 H 24 H Blood Pressure 100/51 L Pulse Oximetry 96 Oxygen Delivery Fraction of Inspired Oxygen 01/20/25 14:00 01/20/25 14:00 01/20/25 14:00 Temperature Pulse Rate 113 H 113 H 113 H Respiratory Rate 24 H Blood Pressure 99/54 L Pulse Oximetry Oxygen Delivery Fraction of Inspired Oxygen 01/20/25 14:00 01/20/25 14:17 01/20/25 14:33 Temperature 101 F H Pulse Rate 113 H 113 H 114 H Respiratory Rate 24 H 24 H Blood Pressure 99/54 L Pulse Oximetry 96 96 Oxygen Delivery Mechanical Ventilation Fraction of Inspired Oxygen 45 01/20/25 14:33 Temperature Pulse Rate 114 H Respiratory Rate 24 H Blood Pressure Pulse Oximetry Oxygen Delivery Fraction of Inspired Oxygen Intake/Output Intake/Output: Intake & Output 01/17/25 01/18/25 01/19/25 01/20/25 23:59 23:59 23:59 23:59 Intake Total 3402.6 2647.0 1111.1 Output Total 1200 2050 900 Balance 2202.6 597.0 211.1 Meds/Results Medications: Active Medications Generic Name Dose Route Start Last Admin Trade Name Freq PRN Reason Stop Dose Admin Acetaminophen 650 mg 01/18/25 20:28 01/20/25 10:25 Acetaminophen Elixir 325 Mg/10.15 Ml Udc FEED TUBE 650 mg Q4H PRN Administration Mild Pain (1-3) or Fever Atorvastatin Calcium 20 mg 01/19/25 18:00 01/19/25 17:34 Atorvastatin 20 Mg Tablet PO 20 mg QPM SESAR Administration Dextrose 12.5 gm 01/18/25 23:15 Dextrose 50% 25 Gm/50 Ml Syringe IV PUSH PRN PRN Hypoglycemia Protocol Enoxaparin Sodium 40 mg 01/20/25 09:00 01/20/25 09:06 Enoxaparin 40 Mg/0.4 Ml Syringe SUB-Q 40 mg DAILY SESAR Administration Estradiol 1 mg 01/19/25 09:00 Estradiol 1 Mg Tablet PO DAILY SESAR Glucagon 1 mg 01/18/25 23:15 Glucagon For Inj 1 Mg Vial IM PRN PRN Hypoglycemia Protocol Glucose 15 gm 01/18/25 23:15 Glucose Oral Gel 15 Gm Of Glucse In 37.5 Gm Tube PO PRN PRN Hypoglycemia Protocol Doxycycline Hyclate 100 mg in 100 mls @ 100 mls/hr 01/18/25 23:00 01/20/25 11:24 Vibramycin 100 Mg/Ns 100 Ml IVPB 01/23/25 22:59 Infused Q12H SESAR Infusion Dextrose 1,000 mls @ 100 mls/hr 01/18/25 23:15 Dextrose 5% 1,000 Ml IVPB PRN PRN Hypoglycemia Protocol Fentanyl Citrate 2,500 mcg in 250 mls @ 5 mls/hr 01/19/25 05:20 01/20/25 14:00 Fentanyl 2,500 Mcg/Ns 250 Ml IV CONT 50 mcg/hr .Q50H SESAR 5 mls/hr Titration Protocol 50 MCG/HR Midazolam HCl 100 mg in 100 mls @ 2 mls/hr 01/19/25 05:20 01/20/25 14:33 Versed 100 Mg/Ns 100 Ml IV CONT 2 mg/hr .Q50H SESAR 2 mls/hr Administration Protocol 2 MG/HR Phenylephrine HCl 50 mg/ 250 mls @ 0 mls/hr 01/19/25 07:30 01/20/25 14:00 Sodium Chloride IV CONT 0 mcg/min .Q0M SESAR 0 mls/hr Titration Protocol 0 MCG/MIN Cefepime HCl 2 gm in 50 mls @ 100 mls/hr 01/20/25 19:30 Maxipime 2 Gm/Ns 50 Ml IVPB Q12HR [facility] Insulin Aspart 2 - 5 units 01/19/25 01:00 01/20/25 12:24 Insulin Aspart (*Bkc) 100 Units/Ml SUB-Q 2 units Q4HR SESAR Administration Protocol Insulin Glargine 12 units 01/19/25 21:00 01/19/25 20:23 Insulin Glargine (*Bkc) 100 Units/Ml SUB-Q 12 units HS [facility] Administration Metoprolol Tartrate 25 mg 01/19/25 09:00 Metoprolol Tartrate 25 Mg Tablet PO Q12HR [facility] Multi-Ingred Cream/Lotion/Oil/Oint 1 applic 01/19/25 09:00 01/20/25 09:06 Mineral Oil/White Petrolatum Ointment EACH EYE 1 applic Q12HR [facility] Administration Ondansetron HCl 4 mg 01/19/25 01:20 Ondansetron Inj 4 Mg/2 Ml Vial IV PUSH Q4H PRN Nausea And Vomiting Oseltamivir Phosphate 30 mg 01/18/25 21:00 01/20/25 09:12 Oseltamivir Phosphate Oral Susp 75 Mg/12.5 Ml Syringe PO 01/23/25 20:59 30 mg Q12HR SESAR Administration Pantoprazole Sodium 40 mg 01/20/25 09:00 01/20/25 09:06 Pantoprazole Sodium Iv 40 Mg Vial IV PUSH 40 mg QAM SESAR Administration Sodium Chloride 10 ml 01/19/25 06:00 01/20/25 14:07 Central Line Flush IV PUSH 10 ml Q8HR SESAR Administration Sodium Chloride 20 ml 01/19/25 04:13 Central Line Flush IV PUSH PRN PRN after blood draws Spironolactone 100 mg 01/19/25 09:00 Spironolactone 50 Mg Tablet PO Q12HR SESAR Vancomycin HCl 1 each 01/18/25 14:49 Vancomycin For Acute Kidney Injury IVPB PRN PRN Vancomycin Protocol Radiology Results: ITS Impressions Chest CTA 01/18/25 15:25 IMPRESSION: 1. No pulmonary embolism. 2. Bilateral pneumonia in the lower lobes. Pneumonia in the lingula. Minimal changes of pneumonia in the right middle lobe. Pneumonia in the right upper lobe posteriorly. Follow-up to resolution is advised. Chest X-Ray 01/20/25 05:38 Impression: Extensive bilateral airspace consolidation. Correlate for pulmonary edema versus bilateral pneumonia. Minimal left pleural effusion. Stable support tubes. Labs Labs: Laboratory Results - last 24 hr 01/19/25 01/19/25 01/19/25 17:32 17:46 20:22 WBC RBC Hgb Hct MCV MCH MCHC RDW Plt Count MPV Immature Gran % (Auto) Neut % (Auto) Lymph % (Auto) Greene % (Auto) Eos % (Auto) Baso % (Auto) Lymph # (Auto) Greene # (Auto) Eos # (Auto) Baso # (Auto) Abs Immat Gran (auto) Absolute Neuts (auto) Absolute Nucleated RBC Total Counted Neutrophils % (Manual) Band Neutrophils % Lymphocytes % (Manual) Monocytes % (Manual) Nucleated RBC % Abs Neuts (Manual) Abs Lymphs (Manual) Abs Monocytes (Manual) Platelet Estimate Schistocytes Sodium 144 Potassium 3.8 Chloride 110 H Carbon Dioxide 19 L Anion Gap 15 H BUN 17 Creatinine 0.87 Estim Creat Clear Calc 57 Estimated GFR > 60 Glucose 127 H POC Capillary Glucose 133 H 146 H Calcium 8.5 Phosphorus Magnesium Total Bilirubin AST ALT Alkaline Phosphatase C-Reactive Protein Total Protein Albumin Procalcitonin Random Vancomycin < 5.0 L 01/20/25 01/20/25 01/20/25 00:00 05:05 05:55 WBC 11.5 H RBC 2.97 L Hgb 9.6 L Hct 28.5 L MCV 96.0 MCH 32.3 MCHC 33.7 RDW 14.6 H Plt Count 120 L MPV 10.0 Immature Gran % (Auto) Not Reportable Neut % (Auto) Not Reportable Lymph % (Auto) Not Reportable Greene % (Auto) Not Reportable Eos % (Auto) Not Reportable Baso % (Auto) Not Reportable Lymph # (Auto) Not Reportable Greene # (Auto) Not Reportable Eos # (Auto) Not Reportable Baso # (Auto) Not Reportable Abs Immat Gran (auto) Not Reportable Absolute Neuts (auto) Not Reportable Absolute Nucleated RBC Not Reportable Total Counted 100 Neutrophils % (Manual) 38 L Band Neutrophils % 53 H Lymphocytes % (Manual) 8 L Monocytes % (Manual) 1 L Nucleated RBC % Not Reportable Abs Neuts (Manual) 10.46 H Abs Lymphs (Manual) 0.92 L Abs Monocytes (Manual) 0.11 Platelet Estimate Slightly decreased Schistocytes None seen Sodium 146 H Potassium 3.6 Chloride 111 H Carbon Dioxide 20 L Anion Gap 15 H BUN 24 H Creatinine 1.08 H Estim Creat Clear Calc 46 Estimated GFR 53 L Glucose 202 H POC Capillary Glucose 172 H 202 H Calcium 8.5 Phosphorus 1.3 L Magnesium 2.4 H Total Bilirubin 0.9 AST 68 H ALT 28 Alkaline Phosphatase 75 C-Reactive Protein 43.3 H Total Protein 5.9 L Albumin 3.2 L Procalcitonin 6.5 Random Vancomycin 01/20/25 01/20/25 09:07 12:23 WBC RBC Hgb Hct MCV MCH MCHC RDW Plt Count MPV Immature Gran % (Auto) Neut % (Auto) Lymph % (Auto) Greene % (Auto) Eos % (Auto) Baso % (Auto) Lymph # (Auto) Greene # (Auto) Eos # (Auto) Baso # (Auto) Abs Immat Gran (auto) Absolute Neuts (auto) Absolute Nucleated RBC Total Counted Neutrophils % (Manual) Band Neutrophils % Lymphocytes % (Manual) Monocytes % (Manual) Nucleated RBC % Abs Neuts (Manual) Abs Lymphs (Manual) Abs Monocytes (Manual) Platelet Estimate Schistocytes Sodium Potassium Chloride Carbon Dioxide Anion Gap BUN Creatinine Estim Creat Clear Calc Estimated GFR Glucose POC Capillary Glucose 220 H 205 H Calcium Phosphorus Magnesium Total Bilirubin AST ALT Alkaline Phosphatase C-Reactive Protein Total Protein Albumin Procalcitonin Random Vancomycin Quality VTE Prophylaxis VTE prophylaxis: pharmacologic ordered
[2025-01-20 17:12] LABS: Glucose Point of Care 208 mg/dl (65-105)
[2025-01-20] MEDS: ATORVASTATIN 20 MG TABLET PO (18:36)
[2025-01-20 19:15] LABS: Vancomycin Random < 5.0 ug/mL (10-20)
[2025-01-20] MEDS: VANCOMYCIN 1,000 MG/NS 250 ML 1,000 MG/250 ML BAG 250 MG IVPB (20:23)
[2025-01-20] MEDS: INSULIN GLARGINE (*BKC) 100 UNITS/ML 12 UNITS SUB-Q (20:24)
[2025-01-20 20:34] LABS: Glucose Point of Care 175 mg/dl (65-105)
[2025-01-20 20:39] LABS: Device VENTILATOR; Modified Allen's Test Pass; Site Drawn LEFT RADIAL
[2025-01-20 20:40] LABS: Arterial Blood Gas Vent Mode CMV; Arterial Blood Gas Ventilator rate 24 /MIN
[2025-01-20 20:41] LABS: Arterial Blood Gas PEEP 5 cmH2O; Arterial Blood Gas Tidal Volume 330 ml
[2025-01-21] VITALS (27 sets, daily range): BP systolic 93–110; BP diastolic 41–61; PULSE 100–109; RESP 20–94; TEMP 37.4–38.3; O2SAT 24–98
[2025-01-21] MEDS: INSULIN ASPART (*BKC) 100 UNITS/ML SUB-Q (00:01)
[2025-01-21 00:10] LABS: Glucose Point of Care 203 mg/dl (65-105)
[2025-01-21 04:11] LABS: Hematocrit 29.2 % (37.0-47.0); Hemoglobin 9.9 g/dL (12.0-15.0); Mean Corpuscular HGB Conc 33.9 g/dl (32-36); Mean Corpuscular Hemoglobin 31.7 pg (26-34); Mean Corpuscular Volume 93.6 fl (80-100); Mean Platelet Volume 10.1 fl (7.4-10.4); Platelet Count Result 133 k/mm3 (150-375); Red Blood Count 3.12 M/mm3 (4.2-5.4); Red Cell Distribution Width 14.7 % (11.5-14.5); White Blood Count 15.5 K/mm3 (4.5-10.0)
[2025-01-21 04:23] LABS: INR 1.4; Prothrombin Time 16.7 Seconds (11.1-14.7)
[2025-01-21 04:24] LABS: Partial Thromboplastin Time 31.2 Seconds (22.3-36.8)
[2025-01-21 04:32] LABS: Lactic Acid Reflex 1.1 mmol/L (0.7-2.0)
[2025-01-21 04:37] LABS: Alanine Aminotransferase 32 U/L (6-35); Albumin Level 2.9 g/dL (3.5-5.1); Alkaline Phosphatase 114 U/L (38-126); Anion Gap 9 mmol/L (4-12); Aspartate Amino Transferase 65 U/L (14-36); Blood Urea Nitrogen 24 mg/dL (7-17); Calcium 8.7 mg/dL (8.4-10.2); Carbon Dioxide 25 mmol/L (22-30); Chloride 115 mmol/L (98-107); Creatine Kinase 764 U/L (30-135); Estimated CRCL calculation 66 ml/min; Estimated Glomerular Filt Rate > 60; Glucose 186 mg/dL (65-110); Lipase 58 U/L (23-300); Magnesium 2.6 mg/dL (1.6-2.3); Phosphorus < 1.0 mg/dL (2.5-4.5); Potassium 3.4 mmol/L (3.4-5.0); Sodium 149 mmol/L (137-145); Total Protein 5.8 g/dL (6.3-8.2)
[2025-01-21 04:41] LABS: Band Neutrophils Percent 12 % (0-6); Lymphocytes Absolute Manual 0.15 K/mm3 (1.1-4.5); Monocytes Absolute Manual 0.31 K/mm3 (0.1-0.90); Monocytes Percent Manual 2 % (3-9); Neutrophils Absolute Manual 15.03 K/mm3 (1.3-6.7); Neutrophils Percent Manual 85 % (46-73); Total Cells Counted 100
[2025-01-21 04:47] LABS: Procalcitonin. 3.6 ng/mL
[2025-01-21 04:51] LABS: Anisocytosis 1+; Burr Cells 1+; Ovalocytes 1+; Platelet Estimate Slightly Decreased (Adequate); Schistocytes None Seen
[2025-01-21 04:55] LABS: Alveolar/Arterial O2 Gradient 187.9 mmHg; Base Excess ABG 1.4 mEq/l (+/-2.0); Fractional Inspired Oxygen 45 %; HCO3 ABG 24.7 mEq/l (22.0-26.0); Oxygen Content ABG 14.5 %vol (16.0-22.0); Oxygen Saturation ABG 97.7 % (95.0-100.0); Oxyhemoglobin 97.3 % THb (90.0-100.0); PCO2 ABG 33.9 mmHg (35.0-45.0); PO2 ABG 94.4 mmHg (80.0-100.0); Total Hemoglobin 10.5 g/dL (12.0-18.0)
[2025-01-21 04:56] LABS: Modified Allen's Test Pass; Site Drawn RIGHT RADIAL
[2025-01-21 04:57] LABS: Arterial Blood Gas PEEP 5 cmH2O; Arterial Blood Gas Tidal Volume 330 ml; Arterial Blood Gas Vent Mode CMV; Arterial Blood Gas Ventilator rate 24 /MIN; Device VENTILATOR
[2025-01-21 05:13] LABS: CRP. 31.7 mg/dL (<1.0)
[2025-01-21] MEDS: CENTRAL LINE FLUSH 10 ML IV PUSH ×3 (06:04→21:03)
[2025-01-21] MEDS: PANTOPRAZOLE SODIUM IV 40 MG VIAL IV PUSH (07:42)
[2025-01-21] MEDS: MINERAL OIL/WHITE PETROLATUM OINTMENT 1 APPLIC EACH EYE ×2 (07:42→21:03)
[2025-01-21] MEDS: ENOXAPARIN 40 MG/0.4 ML SYRINGE SUB-Q (07:42)
[2025-01-21] MEDS: CEFEPIME 2 GM/NS 50 ML 2 GM/50 ML BAG IVPB (07:44)
[2025-01-21] MEDS: OSELTAMIVIR PHOSPHATE ORAL SUSP 75 MG/12.5 ML SYRINGE PO ×2 (08:20→21:03)
[2025-01-21] MEDS: INSULIN GLARGINE (*BKC) 100 UNITS/ML SUB-Q (08:23)
[2025-01-21] MEDS: POTASSIUM PHOS,M-BASIC-D-BASIC 20 MMOL in SODIUM CHLORIDE 0.9% IV 250 ML 64.17 MMOL IVPB (08:29)
--- NOTE | 2025-01-21 08:30 | P.PNINT_ITS ---
Progress Note: A&P Assessment and Plan (1) Septic shock: Code(s): A41.9 - Sepsis, unspecified organism; R65.21 - Severe sepsis with septic shock Status: Acute Assessment and Plan: Patient presented with bilateral lower lobe infiltrates, pneumonia, hypotension overnight requiring central line placement on 01/19, and Levophed -continue Levophed to maintain SBP> 90 mmHg, as daughter stateThat patient has normal SBP is in the 80s to 90s -01/19: switch Levophed to phenylephrine as patient is tachycardic, will wean Levophed to off -elevated CRP and procalcitonin on admission -remains febrile, continue Tylenol -this could be related to influenza A and pneumonia -01/20: currently off all pressors -01/18: Blood cultures growing MSSA -01/19: Sputum cultures obtained and pending -status post IV fluids and albumin with improvement in heart -lactic acid remains normal -01/20: Repeat blood cultures On cefepime, doxycycline and vancomycin (01/18) 01/21: Will discontinue vancomycin, start oxacillin (01/21) 1625: Echocardiogram Summary 1. Left ventricular chamber dimension is normal. 2. Left ventricular systolic function is normal, estimated at 60-65. 3. The left ventricular diastolic function is grade I diastolic dysfunction. 4. Right ventricular chamber dimension is mildly enlarged. 5. Right ventricular systolic function is normal. 6. Right atrial chamber dimension is mildly enlarged. 7. There is mild to moderate tricuspid valve regurgitation. (2) Acute hypoxic respiratory failure: Code(s): J96.01 - Acute respiratory failure with hypoxia Status: Acute Assessment and Plan: 01/18: Patient presented the ED with shortness of breath, weakness, diabetic ketoacidosis, pneumonia 01/18: Intubated in the ED for airway protection and hypoxia -remains on CMV mode of ventilation, peep of 5, 60% FiO2, titrate FiO2 to maintain O2 sat > 92% -chest x-ray and ABGs reviewed, ventilator adjusted - CTA chest on admission showed bilateral lower lobe pneumonia -positive for influenza A, On Tamiflu 01/15: CTA chest IMPRESSION: 1. No pulmonary embolism. 2. Bilateral pneumonia in the lower lobes. Pneumonia in the lingula. Minimal ch anges of pneumonia in the right middle lobe. Pneumonia in the right upper lobe posteriorly. Follow-up to resolution is advised. (3) PNA (pneumonia): Code(s): J18.9 - Pneumonia, unspecified organism Status: Acute Assessment and Plan: Bilateral lower lobe pneumonia, continue antibiotics as above -currently intubated on mechanical ventilation (4) DKA (diabetic ketoacidosis): Code(s): E11.10 - Type 2 diabetes mellitus with ketoacidosis without coma Status: Acute Assessment and Plan: Patient presented with elevated beta hydroxybutyrate, anion gap metabolic acidosis, UA showed ketones, glucose -likely euglycemic diabetic ketoacidosis as patient was still taking Jardiance and metformin -this given 3 L IV fluids since admission, started on insulin infusion per DKA protocol -overnight patient was transition to long-acting insulin Lantus, and sliding scale insulin with Accu-Chek -continue to monitor -increased Lantus (5) Flu: Code(s): J11.1 - Influenza due to unidentified influenza virus with other respiratory manifestations Status: Acute Assessment and Plan: Patient was tested positive for influenza A -continue Tamiflu (6) Chronic low blood pressure: Code(s): I95.89 - Other hypotension Status: Acute Assessment and Plan: Patient has chronic low blood pressures, according the daughter systolic blood pressures range in the 80s to 90s (7) Sinus tachycardia: Code(s): R00.0 - Tachycardia, unspecified Status: Acute Assessment and Plan: Has a history of chronic sinus tachycardia for which she is on metoprolol at home, will hold for now since patient is on pressors -patient's heart rate is in the 100-110 which is her baseline (8) PCOS (polycystic ovarian syndrome): Code(s): E28.2 - Polycystic ovarian syndrome Status: Acute Assessment and Plan: On spironolactone which will continue to hold for now due to patient being on pressors, hypovolemic hold estradiol (9) Hyperlipidemia: Code(s): E78.5 - Hyperlipidemia, unspecified Status: Acute Assessment and Plan: continue Atorvastatin (10) Electrolyte imbalance: Code(s): E87.8 - Other disorders of electrolyte and fluid balance, not elsewhere classified Status: Acute Assessment and Plan: Hypernatremia: Will increase his free water flush Will replace phosphorus and potassium Plan DVT prophylaxis: Lovenox Stress ulcer prophylaxis: Protonix Nutrition: Tolerating tube feeds Code Status: Full code Critical Care Time Spent: 33 minutes Discussed with daughter at bedside and updated her with patient's condition and plan of care. I answered all questions Due to a high probability of clinically significant, life threatening deterioration, the patient required my highest level of preparedness to intervene emergently and I personally spent this critical care time directly and personally managing the patient. This critical care time included obtaining a history; examining the patient; pulse oximetry; ordering and review of studies; arranging urgent treatment with development of a management plan; evaluation of patient's response to treatment; frequent reassessment; and discussions with other providers. It was exclusive of separately billable procedures and treating other patients and teaching time. Please see Assessment and Plan section and the rest of the note for further information on patient assessment and treatment This dictation may have been done utilizing a voice recognition system. Attempts have been made to correct errors. However, there may be uncorrected grammatical, spelling, and recognitions errors present. Subjective Date/time seen: 01/21/25 08:30 Interval history: Reason for consult: Septic shock, acute respiratory failure, pneumonia, euglycemic diabetic ketoacidosis, 01/21/2025: Patient seen and examined in the ICU, remains intubated on CMV mode of ventilation, peep of 5, 45% FiO2. Sedated with fentanyl and Versed infusion, does not open her eyes or follow simple commands, does not withdraw to pain stimulus. Off Dez-Synephrine, heart rate much improved, back to baseline with HR in the 100s. Off all IV fluids, urine output has been adequate, tolerating tube feeds, T-max of 101?. Tolerating tube feeds Review of Systems Review of Systems: ROS unobtainable: Yes unobtainable due to endotracheal tube and unobtainable due to medical condition Exam Narrative: General: Intubated and sedated, in no acute distress HEENT:? Pupils small and reactive bilaterally, sclera is clear, ETT in place Neck:? Supple, right IJ central line in place Respiratory:? Coarse breath sounds bilaterally, decreased at bases, rales bilaterally at bases, no wheezing Cardiac:? Sinus tachycardia, S1-S2 was normal, no murmurs Abdomen:? Soft, nontender, nondistended, hypoactive bowel sounds Extremities:? No edema, palpable pedal pulses Neuro:? Intubated, sedated, does not open her eyes or follow simple commands, withdraws to pain stimulus Skin:? No lesions noted Psych:? Unable to assess at this time Objective Data Vital Signs Vital Signs: Vital Signs - 24 hr 01/20/25 10:00 01/20/25 10:00 01/20/25 10:00 Temperature Pulse Rate 117 H 117 H 117 H Respiratory Rate 24 H Blood Pressure 107/54 L 107/54 L Pulse Oximetry 98 Oxygen Delivery Fraction of Inspired Oxygen 01/20/25 10:00 01/20/25 10:00 01/20/25 10:00 Temperature Pulse Rate 117 H 117 H 117 H Respiratory Rate 24 H 24 H Blood Pressure 107/54 L Pulse Oximetry Oxygen Delivery Fraction of Inspired Oxygen 01/20/25 10:25 01/20/25 10:25 01/20/25 11:13 Temperature 100.1 F H 101.1 F H Pulse Rate 118 H Respiratory Rate Blood Pressure Pulse Oximetry 96 Oxygen Delivery Mechanical Ventilation Fraction of Inspired Oxygen 45 01/20/25 11:25 01/20/25 11:29 01/20/25 12:00 Temperature 101 F H 101 F H Pulse Rate Respiratory Rate Blood Pressure Pulse Oximetry Oxygen Delivery Fraction of Inspired Oxygen 45 01/20/25 12:00 01/20/25 12:00 01/20/25 12:00 Temperature Pulse Rate 114 H 114 H 114 H Respiratory Rate 24 H 24 H Blood Pressure 100/51 L Pulse Oximetry Oxygen Delivery Fraction of Inspired Oxygen 01/20/25 12:00 01/20/25 12:00 01/20/25 12:00 Temperature 100.1 F H Pulse Rate 114 H 115 H Respiratory Rate 24 H Blood Pressure 100/51 L Pulse Oximetry 96 96 Oxygen Delivery Mechanical Ventilation Fraction of Inspired Oxygen 45 01/20/25 14:00 01/20/25 14:00 01/20/25 14:00 Temperature Pulse Rate 113 H 113 H 113 H Respiratory Rate 24 H 24 H Blood Pressure 99/54 L Pulse Oximetry Oxygen Delivery Fraction of Inspired Oxygen 01/20/25 14:00 01/20/25 14:00 01/20/25 14:17 Temperature 101 F H Pulse Rate 113 H 113 H 113 H Respiratory Rate 24 H Blood Pressure 99/54 L Pulse Oximetry 96 96 Oxygen Delivery Mechanical Ventilation Fraction of Inspired Oxygen 45 01/20/25 14:33 01/20/25 14:33 01/20/25 16:00 Temperature 101 F H Pulse Rate 114 H 114 H 112 H Respiratory Rate 24 H 24 H 24 H Blood Pressure 106/57 L Pulse Oximetry 96 Oxygen Delivery Fraction of Inspired Oxygen 01/20/25 16:00 01/20/25 16:00 01/20/25 16:00 Temperature Pulse Rate 112 H Respiratory Rate 24 H Blood Pressure Pulse Oximetry 96 Oxygen Delivery Mechanical Ventilation Fraction of Inspired Oxygen 45 45 01/20/25 16:00 01/20/25 16:00 01/20/25 16:00 Temperature Pulse Rate 112 H 112 H 111 H Respiratory Rate 24 H Blood Pressure 106/57 L Pulse Oximetry Oxygen Delivery Fraction of Inspired Oxygen 01/20/25 17:19 01/20/25 18:00 01/20/25 18:00 Temperature Pulse Rate 112 H 111 H 111 H Respiratory Rate 24 H 24 H Blood Pressure Pulse Oximetry 96 Oxygen Delivery Mechanical Ventilation Fraction of Inspired Oxygen 45 01/20/25 18:00 01/20/25 18:00 01/20/25 18:00 Temperature Pulse Rate 111 H 111 H 112 H Respiratory Rate 24 H Blood Pressure 104/58 L 104/58 L Pulse Oximetry 96 Oxygen Delivery Fraction of Inspired Oxygen 01/20/25 18:35 01/20/25 20:00 01/20/25 20:00 Temperature 99.9 F H Pulse Rate 105 H Respiratory Rate 24 H Blood Pressure Pulse Oximetry Oxygen Delivery Fraction of Inspired Oxygen 45 01/20/25 20:00 01/20/25 20:00 01/20/25 20:00 Temperature Pulse Rate 105 H 105 H 105 H Respiratory Rate 24 H 24 H Blood Pressure Pulse Oximetry 96 Oxygen Delivery Mechanical Ventilation Fraction of Inspired Oxygen 45 01/20/25 20:00 01/20/25 20:26 01/20/25 22:00 Temperature 100.1 F H Pulse Rate 105 H 106 H 104 H Respiratory Rate 24 H Blood Pressure 105/59 L Pulse Oximetry 96 96 Oxygen Delivery Mechanical Ventilation Fraction of Inspired Oxygen 45 01/20/25 22:00 01/20/25 22:00 01/20/25 22:00 Temperature 100.4 F H Pulse Rate 104 H 104 H 104 H Respiratory Rate 24 H 24 H 24 H Blood Pressure 109/60 Pulse Oximetry 95 Oxygen Delivery Fraction of Inspired Oxygen 01/20/25 22:02 01/21/25 00:00 01/21/25 00:00 Temperature 99.7 F H Pulse Rate 106 H 103 H 103 H Respiratory Rate 24 H 24 H Blood Pressure 110/59 L Pulse Oximetry 96 94 Oxygen Delivery Mechanical Ventilation Fraction of Inspired Oxygen 45 01/21/25 00:00 01/21/25 00:00 01/21/25 00:00 Temperature Pulse Rate 103 H 103 H Respiratory Rate 24 H 24 H Blood Pressure Pulse Oximetry 94 Oxygen Delivery Mechanical Ventilation Fraction of Inspired Oxygen 45 45 01/21/25 00:00 01/21/25 01:26 01/21/25 02:00 Temperature Pulse Rate 102 H 101 H 101 H Respiratory Rate Blood Pressure Pulse Oximetry 94 Oxygen Delivery Mechanical Ventilation Fraction of Inspired Oxygen 45 01/21/25 02:00 01/21/25 02:00 01/21/25 02:00 Temperature 99.5 F Pulse Rate 100 100 100 Respiratory Rate 94 H 24 H 24 H Blood Pressure 109/59 L Pulse Oximetry 24 L Oxygen Delivery Fraction of Inspired Oxygen 01/21/25 04:00 01/21/25 04:00 01/21/25 04:00 Temperature 99.5 F Pulse Rate 102 H 101 H 101 H Respiratory Rate 24 H 24 H 24 H Blood Pressure 102/54 L Pulse Oximetry 95 Oxygen Delivery Fraction of Inspired Oxygen 01/21/25 04:00 01/21/25 04:00 01/21/25 04:15 Temperature Pulse Rate 102 H 101 H Respiratory Rate 24 H Blood Pressure Pulse Oximetry 95 Oxygen Delivery Mechanical Ventilation Fraction of Inspired Oxygen 45 45 01/21/25 04:39 01/21/25 06:00 01/21/25 06:00 Temperature 99.7 F H Pulse Rate 102 H 101 H 101 H Respiratory Rate 24 H Blood Pressure 105/57 L Pulse Oximetry 95 98 Oxygen Delivery Mechanical Ventilation Fraction of Inspired Oxygen 45 01/21/25 06:00 01/21/25 06:00 Temperature Pulse Rate 101 H 101 H Respiratory Rate 24 H 24 H Blood Pressure Pulse Oximetry Oxygen Delivery Fraction of Inspired Oxygen Intake/Output Intake/Output: Intake & Output 01/18/25 01/19/25 01/20/25 01/21/25 23:59 23:59 23:59 23:59 Intake Total 3402.6 2647.0 2289.0 978 Output Total 1200 2050 1950 1150 Balance 2202.6 597.0 339.0 -172 Meds/Results Medications: Active Medications Generic Name Dose Route Start Last Admin Trade Name Freq PRN Reason Stop Dose Admin Acetaminophen 650 mg 01/18/25 20:28 01/20/25 10:25 Acetaminophen Elixir 325 Mg/10.15 Ml Udc FEED TUBE 650 mg Q4H PRN Administration Mild Pain (1-3) or Fever Atorvastatin Calcium 20 mg 01/19/25 18:00 01/20/25 18:36 Atorvastatin 20 Mg Tablet PO 20 mg QPM SESAR Administration Dextrose 12.5 gm 01/18/25 23:15 Dextrose 50% 25 Gm/50 Ml Syringe IV PUSH PRN PRN Hypoglycemia Protocol Enoxaparin Sodium 40 mg 01/20/25 09:00 01/21/25 07:42 Enoxaparin 40 Mg/0.4 Ml Syringe SUB-Q 40 mg DAILY SESAR Administration Estradiol 1 mg 01/19/25 09:00 Estradiol 1 Mg Tablet PO DAILY SESAR Glucagon 1 mg 01/18/25 23:15 Glucagon For Inj 1 Mg Vial IM PRN PRN Hypoglycemia Protocol Glucose 15 gm 01/18/25 23:15 Glucose Oral Gel 15 Gm Of Glucse In 37.5 Gm Tube PO PRN PRN Hypoglycemia Protocol Doxycycline Hyclate 100 mg in 100 mls @ 100 mls/hr 01/18/25 23:00 01/21/25 00:59 Vibramycin 100 Mg/Ns 100 Ml IVPB 01/23/25 22:59 Infused Q12H SESAR Infusion Dextrose 1,000 mls @ 100 mls/hr 01/18/25 23:15 Dextrose 5% 1,000 Ml IVPB PRN PRN Hypoglycemia Protocol Fentanyl Citrate 2,500 mcg in 250 mls @ 5 mls/hr 01/19/25 05:20 01/21/25 06:00 Fentanyl 2,500 Mcg/Ns 250 Ml IV CONT 50 mcg/hr .Q50H SESAR 5 mls/hr Titration Protocol 50 MCG/HR Midazolam HCl 100 mg in 100 mls @ 2 mls/hr 01/19/25 05:20 01/21/25 06:00 Versed 100 Mg/Ns 100 Ml IV CONT 2 mg/hr .Q50H SESAR 2 mls/hr Titration Protocol 2 MG/HR Cefepime HCl 2 gm in 50 mls @ 100 mls/hr 01/21/25 07:30 01/21/25 07:44 Maxipime 2 Gm/Ns 50 Ml IVPB 100 mls/hr Q8HR [facility] Administration Potassium Phosphate 20 mmol/ 256.6667 mls @ 64.167 mls/hr 01/21/25 07:50 Sodium Chloride IVPB 01/21/25 11:49 ONCE ONE Oxacillin Sodium 2 gm/ Sodium 100 mls @ 200 mls/hr 01/21/25 09:00 Chloride IVPB Q4HR [facility] Insulin Aspart 2 - 5 units 01/19/25 01:00 01/21/25 04:43 Insulin Aspart (*Bkc) 100 Units/Ml SUB-Q Not Given Q4HR [facility] Protocol Insulin Glargine 16 units 01/21/25 21:00 Insulin Glargine (*Bkc) 100 Units/Ml SUB-Q [facility] Metoprolol Tartrate 25 mg 01/19/25 09:00 Metoprolol Tartrate 25 Mg Tablet PO Q12HR [facility] Multi-Ingred Cream/Lotion/Oil/Oint 1 applic 01/19/25 09:00 01/21/25 07:42 Mineral Oil/White Petrolatum Ointment EACH EYE 1 applic Q12HR [facility] Administration Ondansetron HCl 4 mg 01/19/25 01:20 Ondansetron Inj 4 Mg/2 Ml Vial IV PUSH Q4H PRN Nausea And Vomiting Oseltamivir Phosphate 75 mg 01/21/25 09:00 01/21/25 08:20 Oseltamivir Phosphate Oral Susp 75 Mg/12.5 Ml Syringe PO 01/22/25 21:01 75 mg Q12HR [facility] Administration Pantoprazole Sodium 40 mg 01/20/25 09:00 01/21/25 07:42 Pantoprazole Sodium Iv 40 Mg Vial IV PUSH 40 mg QAM SESAR Administration Sodium Chloride 10 ml 01/19/25 06:00 01/21/25 06:04 Central Line Flush IV PUSH 10 ml Q8HR SESAR Administration Sodium Chloride 20 ml 01/19/25 04:13 Central Line Flush IV PUSH PRN PRN after blood draws Spironolactone 100 mg 01/19/25 09:00 Spironolactone 50 Mg Tablet PO Q12HR [facility] Radiology Results: ITS Impressions Chest CTA 01/18/25 15:25 IMPRESSION: 1. No pulmonary embolism. 2. Bilateral pneumonia in the lower lobes. Pneumonia in the lingula. Minimal changes of pneumonia in the right middle lobe. Pneumonia in the right upper lobe posteriorly. Follow-up to resolution is advised. Chest X-Ray 01/21/25 05:43 Impression: Stable extensive bilateral airspace consolidation. Correlate for moderate to ad vanced pulmonary edema versus bilateral pneumonia. Minimal left pleural effusion. Stable support tubes. Labs Labs: Laboratory Results - last 24 hr 01/20/25 01/20/25 01/20/25 05:51 09:07 12:23 WBC RBC Hgb Hct MCV MCH MCHC RDW Plt Count MPV Immature Gran % (Auto) Neut % (Auto) Lymph % (Auto) [facility] % (Auto) Eos % (Auto) Baso % (Auto) Lymph # (Auto) [facility] # (Auto) Eos # (Auto) Baso # (Auto) Abs Immat Gran (auto) Absolute Neuts (auto) Absolute Nucleated RBC Total Counted Neutrophils % (Manual) Band Neutrophils % Lymphocytes % (Manual) Monocytes % (Manual) Nucleated RBC % Abs Neuts (Manual) Abs Lymphs (Manual) Abs Monocytes (Manual) Platelet Estimate Anisocytosis Ovalocytes Silvestre Cells Schistocytes PT INR APTT Puncture Site Left radial ABG pH 7.352 ABG pCO2 37.3 ABG pO2 81.7 ABG PO2/FiO2 Ratio 1.82 ABG HCO3 20.2 L ABG O2 Saturation 95.6 ABG O2 Content 14.5 L ABG Base Excess -4.8 A-a Gradient 196.7 Oxyhemoglobin 96.0 Total Hemoglobin 10.7 L O2 Delivery Device Ventilator O2 Liters/Min Not Reportable Minute Volume Not Reportable Vent Rate 24 Vent Mode Cmv FiO2 45 Tidal Volume 330 PEEP 5 Peak Inspir Pressure Not Reportable Pressure Support Not Reportable Sodium Potassium Chloride Carbon Dioxide Anion Gap BUN Creatinine Estim Creat Clear Calc Estimated GFR Glucose POC Capillary Glucose 220 H 205 H Lactic Acid Calcium Phosphorus Magnesium Total Bilirubin AST ALT Alkaline Phosphatase Total Creatine Kinase C-Reactive Protein Total Protein Albumin Lipase Procalcitonin TSH Random Vancomycin 01/20/25 01/20/25 01/20/25 16:45 18:45 20:19 WBC RBC Hgb Hct MCV MCH MCHC RDW Plt Count MPV Immature Gran % (Auto) Neut % (Auto) Lymph % (Auto) [facility] [place] [facility] % (Auto) Eos % (Auto) Baso % (Auto) Lymph # (Auto) [facility] # (Auto) Eos # (Auto) Baso # (Auto) Abs Immat Gran (auto) Absolute Neuts (auto) Absolute Nucleated RBC Total Counted Neutrophils % (Manual) Band Neutrophils % Lymphocytes % (Manual) Monocytes % (Manual) Nucleated RBC % Abs Neuts (Manual) Abs Lymphs (Manual) Abs Monocytes (Manual) Platelet Estimate Anisocytosis Ovalocytes Silvestre Cells Schistocytes PT INR APTT Puncture Site ABG pH ABG pCO2 ABG pO2 ABG PO2/FiO2 Ratio ABG HCO3 ABG O2 Saturation ABG O2 Content ABG Base Excess A-a Gradient Oxyhemoglobin Total Hemoglobin O2 Delivery Device O2 Liters/Min Minute Volume Vent Rate Vent Mode FiO2 Tidal Volume PEEP Peak Inspir Pressure Pressure Support Sodium Potassium Chloride Carbon Dioxide Anion Gap BUN Creatinine Estim Creat Clear Calc Estimated GFR Glucose POC Capillary Glucose 208 H 175 H Lactic Acid Calcium Phosphorus Magnesium Total Bilirubin AST ALT Alkaline Phosphatase Total Creatine Kinase C-Reactive Protein Total Protein Albumin Lipase Procalcitonin TSH Random Vancomycin < 5.0 L 01/20/25 01/21/25 01/21/25 23:58 03:57 04:45 WBC 15.5 H RBC 3.12 L Hgb 9.9 L Hct 29.2 L MCV 93.6 MCH 31.7 MCHC 33.9 RDW 14.7 H Plt Count 133 L MPV 10.1 Immature Gran % (Auto) Not Reportable Neut % (Auto) Not Reportable Lymph % (Auto) Not Reportable [facility] % (Auto) Not Reportable Eos % (Auto) Not Reportable Baso % (Auto) Not Reportable Lymph # (Auto) Not Reportable [facility] # (Auto) Not Reportable Eos # (Auto) Not Reportable Baso # (Auto) Not Reportable Abs Immat Gran (auto) Not Reportable Absolute Neuts (auto) Not Reportable Absolute Nucleated RBC Not Reportable Total Counted 100 Neutrophils % (Manual) 85 H Band Neutrophils % 12 H Lymphocytes % (Manual) 1.0 L Monocytes % (Manual) 2 L Nucleated RBC % Not Reportable Abs Neuts (Manual) 15.03 H Abs Lymphs (Manual) 0.15 L Abs Monocytes (Manual) 0.31 Platelet Estimate Slightly decreased Anisocytosis 1+ Ovalocytes 1+ Hazel Cells 1+ Schistocytes None seen PT 16.7 H INR 1.4 APTT 31.2 Puncture Site Right radial ABG pH 7.480 H ABG pCO2 33.9 L ABG pO2 94.4 ABG PO2/FiO2 Ratio 2.10 ABG HCO3 24.7 ABG O2 Saturation 97.7 ABG O2 Content 14.5 L ABG Base Excess 1.4 A-a Gradient 187.9 Oxyhemoglobin 97.3 Total Hemoglobin 10.5 L O2 Delivery Device Ventilator O2 Liters/Min Not Reportable Minute Volume Not Reportable Vent Rate Vent Mode FiO2 45 Tidal Volume PEEP Peak Inspir Pressure Not Reportable Pressure Support Not Reportable Sodium 149 H Potassium 3.4 Chloride 115 H Carbon Dioxide 25 Anion Gap 9 BUN 24 H Creatinine 0.74 Estim Creat Clear Calc 66 Estimated GFR > 60 Glucose 186 H POC Capillary Glucose 203 H Lactic Acid 1.1 Calcium 8.7 Phosphorus < 1.0 L Magnesium 2.6 H Total Bilirubin 1.0 AST 65 H ALT 32 Alkaline Phosphatase 114 Total Creatine Kinase 764 H C-Reactive Protein 31.7 H Total Protein 5.8 L Albumin 2.9 L Lipase 58 Procalcitonin 3.6 TSH 0.070 L Random Vancomycin Quality VTE Prophylaxis VTE prophylaxis: pharmacologic ordered
[2025-01-21 08:46] LABS: Glucose Point of Care 185 mg/dl (65-105)
[2025-01-21] MEDS: OXACILLIN SODIUM 2 GM in SODIUM CHLORIDE 0.9% IV 100 ML IVPB (09:46)
--- NOTE | 2025-01-21 11:41 | PCFNICU ---
ICU Rounding Note: Pt current nutrition is Vital AF at 45 ml/hr. Nutrition recommendation: Recommend increasing to 60ml/hr. Last recorded weight is 64.3 kg, stable Bowel Motility: Last reported BM 01/19 Labs Reviewed: BUN 24, Glu 186, Na 149 Meds Noted: Lovenox, Protonix, Tamiflu Skin: WNL Additional Notes:Patient remains on a tube feedings of Vital AF 1.2 at 45ml/hr. Spoke with Be[employer] Machine Operator today regarding rate recommendation change. orders for tube feedings to increase to 60 ml/hr. Total Nutrition: 1584 kcals/99 gm protein/1071 ml water. Flush increased to 120 ml q 4 hours. Agree with diet orders. Following daily in ICU rounds. Will monitor weight, labs, skin, diet orders, meds, tube feeding tolerance every Saturday and Saturday.
[2025-01-21] MEDS: DOXYCYCLINE 100 MG/NS 100 ML 100 MG/100 ML BAG IVPB ×2 (11:48→23:54)
[2025-01-21] MEDS: ACETAMINOPHEN ELIXIR 325 MG/10.15 ML UDC 650 MG FEED TUBE (11:49)
[2025-01-21 11:57] LABS: Glucose Point of Care 180 mg/dl (65-105)
[2025-01-21] MEDS: ceFAZolin 2 GM/D5W 50 ML 2 GM/50 ML BAG IVPB ×2 (13:43→21:03)
--- NOTE | 2025-01-21 14:05 | P.PNIM_ITS ---
Progress Note: A&P Assessment and Plan (1) Septic shock: Code(s): A41.9 - Sepsis, unspecified organism; R65.21 - Severe sepsis with septic shock Status: Acute Assessment and Plan: Patient presented with bilateral lower lobe infiltrates, pneumonia, hypotension overnight requiring central line placement on 01/19, and Levophed -continue Levophed to maintain SBP> 90 mmHg, as daughter stateThat patient has normal SBP is in the 80s to 90s -01/19: switch Levophed to phenylephrine as patient is tachycardic, will wean Levophed to off -elevated CRP and procalcitonin on admission -remains febrile, continue Tylenol -this could be related to influenza A and pneumonia -01/20: currently off all pressors -01/18: Blood cultures growing MSSA -01/19: Sputum cultures obtained and pending -status post IV fluids and albumin with improvement in heart -lactic acid remains normal -01/20: Repeat blood cultures On cefepime, doxycycline and vancomycin (01/18) 01/21: Will discontinue vancomycin, start oxacillin (01/21) 1625: Echocardiogram Summary 1. Left ventricular chamber dimension is normal. 2. Left ventricular systolic function is normal, estimated at 60-65. 3. The left ventricular diastolic function is grade I diastolic dysfunction. 4. Right ventricular chamber dimension is mildly enlarged. 5. Right ventricular systolic function is normal. 6. Right atrial chamber dimension is mildly enlarged. 7. There is mild to moderate tricuspid valve regurgitation. (2) Acute hypoxic respiratory failure: Code(s): J96.01 - Acute respiratory failure with hypoxia Status: Acute Assessment and Plan: 01/18: Patient presented the ED with shortness of breath, weakness, diabetic ketoacidosis, pneumonia 01/18: Intubated in the ED for airway protection and hypoxia -remains on CMV mode of ventilation, peep of 5, 60% FiO2, titrate FiO2 to maintain O2 sat > 92% -chest x-ray and ABGs reviewed, ventilator adjusted - CTA chest on admission showed bilateral lower lobe pneumonia -positive for influenza A, On Tamiflu 01/15: CTA chest IMPRESSION: 1. No pulmonary embolism. 2. Bilateral pneumonia in the lower lobes. Pneumonia in the lingula. Minimal ch anges of pneumonia in the right middle lobe. Pneumonia in the right upper lobe posteriorly. Follow-up to resolution is advised. (3) PNA (pneumonia): Code(s): J18.9 - Pneumonia, unspecified organism Status: Acute Assessment and Plan: Bilateral lower lobe pneumonia, continue antibiotics as above -currently intubated on mechanical ventilation (4) DKA (diabetic ketoacidosis): Code(s): E11.10 - Type 2 diabetes mellitus with ketoacidosis without coma Status: Acute Assessment and Plan: Patient presented with elevated beta hydroxybutyrate, anion gap metabolic acidosis, UA showed ketones, glucose -likely euglycemic diabetic ketoacidosis as patient was still taking Jardiance and metformin -this given 3 L IV fluids since admission, started on insulin infusion per DKA protocol -overnight patient was transition to long-acting insulin Lantus, and sliding scale insulin with Accu-Chek -continue to monitor -increased Lantus (5) Flu: Code(s): J11.1 - Influenza due to unidentified influenza virus with other respiratory manifestations Status: Acute Assessment and Plan: Patient was tested positive for influenza A -continue Tamiflu (6) Chronic low blood pressure: Code(s): I95.89 - Other hypotension Status: Acute Assessment and Plan: Patient has chronic low blood pressures, according the daughter systolic blood pressures range in the 80s to 90s (7) Sinus tachycardia: Code(s): R00.0 - Tachycardia, unspecified Status: Acute Assessment and Plan: Has a history of chronic sinus tachycardia for which she is on metoprolol at home, will hold for now since patient is on pressors -patient's heart rate is in the 100-110 which is her baseline (8) PCOS (polycystic ovarian syndrome): Code(s): E28.2 - Polycystic ovarian syndrome Status: Acute Assessment and Plan: On spironolactone which will continue to hold for now due to patient being on pressors, hypovolemic hold estradiol (9) Hyperlipidemia: Code(s): E78.5 - Hyperlipidemia, unspecified Status: Acute Assessment and Plan: continue Atorvastatin (10) Electrolyte imbalance: Code(s): E87.8 - Other disorders of electrolyte and fluid balance, not elsewhere classified Status: Acute Assessment and Plan: Hypernatremia: Will increase his free water flush Will replace phosphorus and potassium Plan DVT prophylaxis: Lovenox Stress ulcer prophylaxis: Protonix Nutrition: Tolerating tube feeds Code Status: Full code Subjective Date/time seen: 01/21/25 14:05 Interval history: still intubated adn sedated Review of Systems Review of Systems: ROS unobtainable: Yes unobtainable due to endotracheal tube, unobtainable due to medical condition and unobtainable due to mental status Exam Narrative: General: Intubated and sedated, in no acute distress HEENT:? Pupils small and reactive bilaterally, sclera is clear, ETT in place Neck:? Supple, right IJ central line in place Respiratory:? Coarse breath sounds bilaterally, decreased at bases, rales bilaterally at bases, no wheezing Cardiac:? Sinus tachycardia, S1-S2 was normal, no murmurs Abdomen:? Soft, nontender, nondistended, hypoactive bowel sounds Extremities:? No edema, palpable pedal pulses Neuro:? Intubated, sedated, does not open her eyes or follow simple commands, withdraws to pain stimulus Skin:? No lesions noted Psych:? Unable to assess at this time Objective Data Vital Signs Vital Signs: Vital Signs - 24 hr 01/20/25 14:17 01/20/25 14:33 01/20/25 14:33 Temperature Pulse Rate 113 H 114 H 114 H Respiratory Rate 24 H 24 H Blood Pressure Pulse Oximetry 96 Oxygen Delivery Mechanical Ventilation Fraction of Inspired Oxygen 45 01/20/25 16:00 01/20/25 16:00 01/20/25 16:00 Temperature 101 F H Pulse Rate 112 H Respiratory Rate 24 H Blood Pressure 106/57 L Pulse Oximetry 96 96 Oxygen Delivery Mechanical Ventilation Fraction of Inspired Oxygen 45 45 01/20/25 16:00 01/20/25 16:00 01/20/25 16:00 Temperature Pulse Rate 112 H 112 H 112 H Respiratory Rate 24 H 24 H Blood Pressure 106/57 L Pulse Oximetry Oxygen Delivery Fraction of Inspired Oxygen 01/20/25 16:00 01/20/25 17:19 01/20/25 18:00 Temperature Pulse Rate 111 H 112 H 111 H Respiratory Rate 24 H Blood Pressure Pulse Oximetry 96 Oxygen Delivery Mechanical Ventilation Fraction of Inspired Oxygen 45 01/20/25 18:00 01/20/25 18:00 01/20/25 18:00 Temperature Pulse Rate 111 H 111 H 111 H Respiratory Rate 24 H 24 H Blood Pressure 104/58 L 104/58 L Pulse Oximetry 96 Oxygen Delivery Fraction of Inspired Oxygen 01/20/25 18:00 01/20/25 18:35 01/20/25 20:00 Temperature 99.9 F H Pulse Rate 112 H Respiratory Rate Blood Pressure Pulse Oximetry Oxygen Delivery Fraction of Inspired Oxygen 45 01/20/25 20:00 01/20/25 20:00 01/20/25 20:00 Temperature Pulse Rate 105 H 105 H 105 H Respiratory Rate 24 H 24 H 24 H Blood Pressure Pulse Oximetry 96 Oxygen Delivery Mechanical Ventilation Fraction of Inspired Oxygen 45 01/20/25 20:00 01/20/25 20:00 01/20/25 20:26 Temperature 100.1 F H Pulse Rate 105 H 105 H 106 H Respiratory Rate 24 H Blood Pressure 105/59 L Pulse Oximetry 96 96 Oxygen Delivery Mechanical Ventilation Fraction of Inspired Oxygen 45 01/20/25 22:00 01/20/25 22:00 01/20/25 22:00 Temperature 100.4 F H Pulse Rate 104 H 104 H 104 H Respiratory Rate 24 H 24 H Blood Pressure 109/60 Pulse Oximetry 95 Oxygen Delivery Fraction of Inspired Oxygen 01/20/25 22:00 01/20/25 22:02 01/21/25 00:00 Temperature 99.7 F H Pulse Rate 104 H 106 H 103 H Respiratory Rate 24 H 24 H Blood Pressure 110/59 L Pulse Oximetry 96 94 Oxygen Delivery Mechanical Ventilation Fraction of Inspired Oxygen 45 01/21/25 00:00 01/21/25 00:00 01/21/25 00:00 Temperature Pulse Rate 103 H 103 H Respiratory Rate 24 H 24 H Blood Pressure Pulse Oximetry Oxygen Delivery Fraction of Inspired Oxygen 45 01/21/25 00:00 01/21/25 00:00 01/21/25 01:26 Temperature Pulse Rate 103 H 102 H 101 H Respiratory Rate 24 H Blood Pressure Pulse Oximetry 94 94 Oxygen Delivery Mechanical Ventilation Mechanical Ventilation Fraction of Inspired Oxygen 45 45 01/21/25 02:00 01/21/25 02:00 01/21/25 02:00 Temperature 99.5 F Pulse Rate 101 H 100 100 Respiratory Rate 94 H 24 H Blood Pressure 109/59 L Pulse Oximetry 24 L Oxygen Delivery Fraction of Inspired Oxygen 01/21/25 02:00 01/21/25 04:00 01/21/25 04:00 Temperature 99.5 F Pulse Rate 100 102 H 101 H Respiratory Rate 24 H 24 H 24 H Blood Pressure 102/54 L Pulse Oximetry 95 Oxygen Delivery Fraction of Inspired Oxygen 01/21/25 04:00 01/21/25 04:00 01/21/25 04:00 Temperature Pulse Rate 101 H 102 H Respiratory Rate 24 H Blood Pressure Pulse Oximetry Oxygen Delivery Fraction of Inspired Oxygen 45 01/21/25 04:15 01/21/25 04:39 01/21/25 06:00 Temperature Pulse Rate 101 H 102 H 101 H Respiratory Rate 24 H Blood Pressure Pulse Oximetry 95 95 Oxygen Delivery Mechanical Ventilation Mechanical Ventilation Fraction of Inspired Oxygen 45 45 01/21/25 06:00 01/21/25 06:00 01/21/25 06:00 Temperature 99.7 F H Pulse Rate 101 H 101 H 101 H Respiratory Rate 24 H 24 H 24 H Blood Pressure 105/57 L Pulse Oximetry 98 Oxygen Delivery Fraction of Inspired Oxygen 01/21/25 07:45 01/21/25 07:45 01/21/25 08:00 Temperature 100.2 F H Pulse Rate 101 H 101 H 101 H Respiratory Rate 24 H 24 H 20 Blood Pressure 104/57 L Pulse Oximetry 97 Oxygen Delivery Fraction of Inspired Oxygen 01/21/25 08:00 01/21/25 08:00 01/21/25 08:00 Temperature Pulse Rate 101 H 101 H Respiratory Rate 24 H 24 H Blood Pressure Pulse Oximetry Oxygen Delivery Fraction of Inspired Oxygen 45 01/21/25 08:00 01/21/25 08:00 01/21/25 08:30 Temperature Pulse Rate 101 H 101 H 103 H Respiratory Rate 20 Blood Pressure Pulse Oximetry 97 97 Oxygen Delivery Mechanical Ventilation Mechanical Ventilation Fraction of Inspired Oxygen 45 45 01/21/25 10:00 01/21/25 10:00 01/21/25 10:04 Temperature Pulse Rate 105 H 105 H 105 H Respiratory Rate 20 20 Blood Pressure 101/57 L Pulse Oximetry 98 Oxygen Delivery Fraction of Inspired Oxygen 01/21/25 10:05 01/21/25 11:15 01/21/25 11:15 Temperature Pulse Rate 105 H 106 H Respiratory Rate 20 Blood Pressure Pulse Oximetry 97 98 Oxygen Delivery Mechanical Ventilation Fraction of Inspired Oxygen 40 40 01/21/25 11:49 01/21/25 12:00 01/21/25 12:00 Temperature 100.5 F H 100.5 F H Pulse Rate 108 H 108 H Respiratory Rate 20 20 Blood Pressure 102/55 L Pulse Oximetry 97 97 Oxygen Delivery Mechanical Ventilation Fraction of Inspired Oxygen 35 01/21/25 12:00 01/21/25 12:00 01/21/25 12:49 Temperature 100.9 F H Pulse Rate 108 H 108 H Respiratory Rate 20 20 Blood Pressure Pulse Oximetry Oxygen Delivery Fraction of Inspired Oxygen Intake/Output Intake/Output: Intake & Output 01/18/25 01/19/25 01/20/25 01/21/25 23:59 23:59 23:59 23:59 Intake Total 3402.6 2647.0 2289.0 1496.967 Output Total 1200 2050 1950 1150 Balance 2202.6 597.0 339.0 346.967 Meds/Results Medications: Active Medications Generic Name Dose Route Start Last Admin Trade Name Freq PRN Reason Stop Dose Admin Acetaminophen 650 mg 01/18/25 20:28 01/21/25 11:49 Acetaminophen Elixir 325 Mg/10.15 Ml Udc FEED TUBE 650 mg Q4H PRN Administration Mild Pain (1-3) or Fever Atorvastatin Calcium 20 mg 01/19/25 18:00 01/20/25 18:36 Atorvastatin 20 Mg Tablet PO 20 mg QPM SESAR Administration Dextrose 12.5 gm 01/18/25 23:15 Dextrose 50% 25 Gm/50 Ml Syringe IV PUSH PRN PRN Hypoglycemia Protocol Enoxaparin Sodium 40 mg 01/20/25 09:00 01/21/25 07:42 Enoxaparin 40 Mg/0.4 Ml Syringe SUB-Q 40 mg DAILY SESAR Administration Estradiol 1 mg 01/19/25 09:00 Estradiol 1 Mg Tablet PO DAILY SESAR Glucagon 1 mg 01/18/25 23:15 Glucagon For Inj 1 Mg Vial IM PRN PRN Hypoglycemia Protocol Glucose 15 gm 01/18/25 23:15 Glucose Oral Gel 15 Gm Of Glucse In 37.5 Gm Tube PO PRN PRN Hypoglycemia Protocol Doxycycline Hyclate 100 mg in 100 mls @ 100 mls/hr 01/18/25 23:00 01/21/25 12:58 Vibramycin 100 Mg/Ns 100 Ml IVPB 01/23/25 22:59 Infused Q12H SESAR Infusion Dextrose 1,000 mls @ 100 mls/hr 01/18/25 23:15 Dextrose 5% 1,000 Ml IVPB PRN PRN Hypoglycemia Protocol Fentanyl Citrate 2,500 mcg in 250 mls @ 5 mls/hr 01/19/25 05:20 01/21/25 12:00 Fentanyl 2,500 Mcg/Ns 250 Ml IV CONT 0 mcg/hr .Q50H SESAR 0 mls/hr Titration Protocol 50 MCG/HR Midazolam HCl 100 mg in 100 mls @ 2 mls/hr 01/19/25 05:20 01/21/25 12:00 Versed 100 Mg/Ns 100 Ml IV CONT 0 mg/hr .Q50H SESAR 0 mls/hr Titration Protocol 2 MG/HR Cefazolin Sodium 2 gm in 50 mls @ 100 mls/hr 01/21/25 14:00 01/21/25 13:43 Ancef 2 Gm/D5w 50 Ml IVPB 100 mls/hr Q8H SESAR Administration Insulin Aspart 2 - 5 units 01/19/25 01:00 01/21/25 11:49 Insulin Aspart (*Bkc) 100 Units/Ml SUB-Q Not Given Q4HR SESAR Protocol Insulin Glargine 16 units 01/21/25 21:00 Insulin Glargine (*Bkc) 100 Units/Ml SUB-Q HS [facility] Metoprolol Tartrate 25 mg 01/19/25 09:00 Metoprolol Tartrate 25 Mg Tablet PO Q12HR [facility] Multi-Ingred Cream/Lotion/Oil/Oint 1 applic 01/19/25 09:00 01/21/25 07:42 Mineral Oil/White Petrolatum Ointment EACH EYE 1 applic Q12HR SESAR Administration Ondansetron HCl 4 mg 01/19/25 01:20 Ondansetron Inj 4 Mg/2 Ml Vial IV PUSH Q4H PRN Nausea And Vomiting Oseltamivir Phosphate 75 mg 01/21/25 09:00 01/21/25 08:20 Oseltamivir Phosphate Oral Susp 75 Mg/12.5 Ml Syringe PO 01/22/25 21:01 75 mg Q12HR SESAR Administration Pantoprazole Sodium 40 mg 01/20/25 09:00 01/21/25 07:42 Pantoprazole Sodium Iv 40 Mg Vial IV PUSH 40 mg QAM SESAR Administration Sodium Chloride 10 ml 01/19/25 06:00 01/21/25 13:46 Central Line Flush IV PUSH 10 ml Q8HR SESAR Administration Sodium Chloride 20 ml 01/19/25 04:13 Central Line Flush IV PUSH PRN PRN after blood draws Spironolactone 100 mg 01/19/25 09:00 Spironolactone 50 Mg Tablet PO Q12HR SESAR Radiology Results: ITS Impressions Chest CTA 01/18/25 15:25 IMPRESSION: 1. No pulmonary embolism. 2. Bilateral pneumonia in the lower lobes. Pneumonia in the lingula. Minimal changes of pneumonia in the right middle lobe. Pneumonia in the right upper lobe posteriorly. Follow-up to resolution is advised. Chest X-Ray 01/21/25 05:43 Impression: Stable extensive bilateral airspace consolidation. Correlate for moderate to advanced pulmonary edema versus bilateral pneumonia. Minimal left pleural effusion. Stable support tubes. Labs Labs: Laboratory Results - last 24 hr 01/20/25 01/20/25 01/20/25 05:51 16:45 18:45 WBC RBC Hgb Hct MCV MCH MCHC RDW Plt Count MPV Immature Gran % (Auto) Neut % (Auto) Lymph % (Auto) [place] % (Auto) Eos % (Auto) Baso % (Auto) Lymph # (Auto) [place] # (Auto) Eos # (Auto) Baso # (Auto) Abs Immat Gran (auto) Absolute Neuts (auto) Absolute Nucleated RBC Total Counted Neutrophils % (Manual) Band Neutrophils % Lymphocytes % (Manual) Monocytes % (Manual) Nucleated RBC % Abs Neuts (Manual) Abs Lymphs (Manual) Abs Monocytes (Manual) Platelet Estimate Anisocytosis Ovalocytes Silvestre Cells Schistocytes PT INR APTT Puncture Site Left radial ABG pH 7.352 ABG pCO2 37.3 ABG pO2 81.7 ABG PO2/FiO2 Ratio 1.82 ABG HCO3 20.2 L ABG O2 Saturation 95.6 ABG O2 Content 14.5 L ABG Base Excess -4.8 A-a Gradient 196.7 Oxyhemoglobin 96.0 Total Hemoglobin 10.7 L O2 Delivery Device Ventilator O2 Liters/Min Not Reportable Minute Volume Not Reportable Vent Rate 24 Vent Mode Cmv FiO2 45 Tidal Volume 330 PEEP 5 Peak Inspir Pressure Not Reportable Pressure Support Not Reportable Sodium Potassium Chloride Carbon Dioxide Anion Gap BUN Creatinine Estim Creat Clear Calc Estimated GFR Glucose POC Capillary Glucose 208 H Lactic Acid Calcium Phosphorus Magnesium Total Bilirubin AST ALT Alkaline Phosphatase Total Creatine Kinase C-Reactive Protein Total Protein Albumin Lipase Procalcitonin TSH Random Vancomycin < 5.0 L 01/20/25 01/20/25 01/21/25 20:19 23:58 03:57 WBC 15.5 H RBC 3.12 L Hgb 9.9 L Hct 29.2 L MCV 93.6 MCH 31.7 MCHC 33.9 RDW 14.7 H Plt Count 133 L MPV 10.1 Immature Gran % (Auto) Not Reportable Neut % (Auto) Not Reportable Lymph % (Auto) Not Reportable [place] % (Auto) Not Reportable Eos % (Auto) Not Reportable Baso % (Auto) Not Reportable Lymph # (Auto) Not Reportable [place] # (Auto) Not Reportable Eos # (Auto) Not Reportable Baso # (Auto) Not Reportable Abs Immat Gran (auto) Not Reportable Absolute Neuts (auto) Not Reportable Absolute Nucleated RBC Not Reportable Total Counted 100 Neutrophils % (Manual) 85 H Band Neutrophils % 12 H Lymphocytes % (Manual) 1.0 L Monocytes % (Manual) 2 L Nucleated RBC % Not Reportable Abs Neuts (Manual) 15.03 H Abs Lymphs (Manual) 0.15 L Abs Monocytes (Manual) 0.31 Platelet Estimate Slightly decreased Anisocytosis 1+ Ovalocytes 1+ [place] Cells 1+ Schistocytes None seen PT 16.7 H INR 1.4 APTT 31.2 Puncture Site ABG pH ABG pCO2 ABG pO2 ABG PO2/FiO2 Ratio ABG HCO3 ABG O2 Saturation ABG O2 Content ABG Base Excess A-a Gradient Oxyhemoglobin Total Hemoglobin O2 Delivery Device O2 Liters/Min Minute Volume Vent Rate Vent Mode FiO2 Tidal Volume PEEP Peak Inspir Pressure Pressure Support Sodium 149 H Potassium 3.4 Chloride 115 H Carbon Dioxide 25 Anion Gap 9 BUN 24 H Creatinine 0.74 Estim Creat Clear Calc 66 Estimated GFR > 60 Glucose 186 H POC Capillary Glucose 175 H 203 H Lactic Acid 1.1 Calcium 8.7 Phosphorus < 1.0 L Magnesium 2.6 H Total Bilirubin 1.0 AST 65 H ALT 32 Alkaline Phosphatase 114 Total Creatine Kinase 764 H C-Reactive Protein 31.7 H Total Protein 5.8 L Albumin 2.9 L Lipase 58 Procalcitonin 3.6 TSH 0.070 L Random Vancomycin 01/21/25 01/21/25 01/21/25 04:45 08:28 11:48 WBC RBC Hgb Hct MCV MCH MCHC RDW Plt Count MPV Immature Gran % (Auto) Neut % (Auto) Lymph % (Auto) [place] % (Auto) Eos % (Auto) Baso % (Auto) Lymph # (Auto) [place] # (Auto) Eos # (Auto) Baso # (Auto) Abs Immat Gran (auto) Absolute Neuts (auto) Absolute Nucleated RBC Total Counted Neutrophils % (Manual) Band Neutrophils % Lymphocytes % (Manual) Monocytes % (Manual) Nucleated RBC % Abs Neuts (Manual) Abs Lymphs (Manual) Abs Monocytes (Manual) Platelet Estimate Anisocytosis Ovalocytes Silvestre Cells Schistocytes PT INR APTT Puncture Site Right radial ABG pH 7.480 H ABG pCO2 33.9 L ABG pO2 94.4 ABG PO2/FiO2 Ratio 2.10 ABG HCO3 24.7 ABG O2 Saturation 97.7 ABG O2 Content 14.5 L ABG Base Excess 1.4 A-a Gradient 187.9 Oxyhemoglobin 97.3 Total Hemoglobin 10.5 L O2 Delivery Device Ventilator O2 Liters/Min Not Reportable Minute Volume Not Reportable Vent Rate 24 Vent Mode Cmv FiO2 45 Tidal Volume 330 PEEP 5 Peak Inspir Pressure Not Reportable Pressure Support Not Reportable Sodium Potassium Chloride Carbon Dioxide Anion Gap BUN Creatinine Estim Creat Clear Calc Estimated GFR Glucose POC Capillary Glucose 185 H 180 H Lactic Acid Calcium Phosphorus Magnesium Total Bilirubin AST ALT Alkaline Phosphatase Total Creatine Kinase C-Reactive Protein Total Protein Albumin Lipase Procalcitonin TSH Random Vancomycin Quality VTE Prophylaxis VTE prophylaxis: pharmacologic ordered
[2025-01-21 16:42] LABS: Glucose Point of Care 179 mg/dl (65-105)
[2025-01-21] MEDS: ATORVASTATIN 20 MG TABLET PO (17:24)
[2025-01-21] MEDS: INSULIN GLARGINE (*BKC) 100 UNITS/ML 16 UNITS SUB-Q (21:02)
[2025-01-21 21:15] LABS: Glucose Point of Care 189 mg/dl (65-105)
[2025-01-22] VITALS (25 sets, daily range): BP systolic 104–124; BP diastolic 62–72; PULSE 109–136; RESP 20–22; TEMP 36.9–38.8; O2SAT 91–95
[2025-01-22 00:06] LABS: Glucose Point of Care 185 mg/dl (65-105)
[2025-01-22 04:56] LABS: Alveolar/Arterial O2 Gradient 97.8 mmHg; Fractional Inspired Oxygen 30 %; HCO3 ABG 28.4 mEq/l (22.0-26.0); Oxygen Content ABG 14.2 %vol (16.0-22.0); Oxygen Saturation ABG 93.9 % (95.0-100.0); PCO2 ABG 42.1 mmHg (35.0-45.0); PO2 ABG 66.6 mmHg (80.0-100.0); PO2 FiO2 Ratio Arterial Blood 2.22 %; Total Hemoglobin 10.8 g/dL (12.0-18.0); pH ABG 7.447 (7.350-7.450)
[2025-01-22 04:57] LABS: Device VENTILATOR; Modified Allen's Test Pass; Site Drawn RIGHT RADIAL
[2025-01-22 04:58] LABS: Arterial Blood Gas PEEP 5 cmH2O; Arterial Blood Gas Tidal Volume 330 ml; Arterial Blood Gas Vent Mode CMV; Arterial Blood Gas Ventilator rate 20 /MIN
[2025-01-22] MEDS: ceFAZolin 2 GM/D5W 50 ML 2 GM/50 ML BAG IVPB ×3 (05:27→21:26)
[2025-01-22 05:29] LABS: Hematocrit 30.8 % (37.0-47.0); Hemoglobin 10.3 g/dL (12.0-15.0); Mean Corpuscular HGB Conc 33.4 g/dl (32-36); Mean Corpuscular Hemoglobin 31.6 pg (26-34); Mean Corpuscular Volume 94.5 fl (80-100); Mean Platelet Volume 10.4 fl (7.4-10.4); Platelet Count Result 158 k/mm3 (150-375); Red Blood Count 3.26 M/mm3 (4.2-5.4); White Blood Count 16.6 K/mm3 (4.5-10.0)
[2025-01-22 05:36] LABS: Glucose Point of Care 166 mg/dl (65-105)
[2025-01-22 05:53] LABS: Anisocytosis 1+; Band Neutrophils Percent 11 % (0-6); Basophils Absolute Manual 0.16 K/mm3 (0.0-0.1); Basophils Percent Manual 1 % (0-1); Lymphocytes Absolute Manual 1.49 K/mm3 (1.1-4.5); Monocytes Absolute Manual 0.49 K/mm3 (0.1-0.90); Monocytes Percent Manual 3 % (3-9); Neutrophils Absolute Manual 14.44 K/mm3 (1.3-6.7); Neutrophils Percent Manual 76 % (46-73); Platelet Clumps Present; Platelet Estimate Adequate (Adequate); Schistocytes None Seen; Smudge Cells PRESENT; Total Cells Counted 100
[2025-01-22 05:54] LABS: Alanine Aminotransferase 32 U/L (6-35); Alkaline Phosphatase 117 U/L (38-126); Anion Gap 6 mmol/L (4-12); Aspartate Amino Transferase 58 U/L (14-36); Bilirubin,Total 0.7 mg/dL (0.2-1.3); Blood Urea Nitrogen 27 mg/dL (7-17); Calcium 8.6 mg/dL (8.4-10.2); Carbon Dioxide 30 mmol/L (22-30); Chloride 114 mmol/L (98-107); Estimated CRCL calculation 82 ml/min; Estimated Glomerular Filt Rate > 60; Glucose 152 mg/dL (65-110); Magnesium 2.5 mg/dL (1.6-2.3); Phosphorus 2.7 mg/dL (2.5-4.5); Potassium 3.7 mmol/L (3.4-5.0); Sodium 150 mmol/L (137-145); Total Protein 6.2 g/dL (6.3-8.2)
[2025-01-22] MEDS: CENTRAL LINE FLUSH 10 ML IV PUSH ×3 (07:27→21:26)
[2025-01-22 08:55] LABS: Glucose Point of Care 170 mg/dl (65-105)
[2025-01-22] MEDS: PANTOPRAZOLE SODIUM IV 40 MG VIAL IV PUSH (09:07)
[2025-01-22] MEDS: ENOXAPARIN 40 MG/0.4 ML SYRINGE SUB-Q (09:07)
[2025-01-22] MEDS: OSELTAMIVIR PHOSPHATE ORAL SUSP 75 MG/12.5 ML SYRINGE PO ×2 (09:08→21:25)
[2025-01-22] MEDS: MINERAL OIL/WHITE PETROLATUM OINTMENT 1 APPLIC EACH EYE ×2 (09:08→21:25)
--- NOTE | 2025-01-22 10:21 | P.CONNP_ITS ---
Assessment and Plan Assessment and plan (1) Hypernatremia: Code(s): E87.0 - Hyperosmolality and hypernatremia Status: Acute Assessment and Plan: * as noted by trend of sodium since 01/20: * 146 (01/20) --> 149 (01/21) --> 150 (01/22) * given presentation on admission, suspect due to aggressive IVF resuscitation (due to hypotension) in conjunction with insensible free water losses given her acute infection and high fevers * agree with free water flushes * will give a trial of D5W IVFs for a total of 1 Liter * follow repeat sodium levels (2) Acute hypoxic respiratory failure: Code(s): J96.01 - Acute respiratory failure with hypoxia Status: Acute Assessment and Plan: * intubated in ER due to airway protection and hypoixia * imaging noted: * CXR - Bilateral basal pneumonia. Pulmonary edema cannot be excluded although less likely * CTof chest - no pulmonary embolism and bilateral pneumonia in the lower lobes; pneumonia in the lingula; minimal changes of pneumonia in the right middle lobe.; pneumonia in the right upper lobe posteriorly * positive of influenza A * continue bronchodilators and steroids * follow culture data * on antibiotics (3) Septic shock: Code(s): A41.9 - Sepsis, unspecified organism; R65.21 - Severe sepsis with septic shock Status: Acute Assessment and Plan: * resolving * initially on levophed and then phenylephrine * currently off all vasopressor therapy * elevated CRP and procalcitonin noted * presumably secondary to influenza A and pneumonia * blood cultures with MSSA * on antibiotics (4) PNA (pneumonia): Code(s): J18.9 - Pneumonia, unspecified organism Status: Acute Assessment and Plan: * as noted by admission imaging * on ventilator support (see #2) * on antibiotics (5) Flu: Code(s): J11.1 - Influenza due to unidentified influenza virus with other respiratory manifestations Status: Acute Assessment and Plan: * positive testing in ER for influenza A * completed course of Tamiflu (6) DKA (diabetic ketoacidosis): Code(s): E11.10 - Type 2 diabetes mellitus with ketoacidosis without coma Status: Acute Assessment and Plan: * noted presentation with elevated beta hydroxybutyrate, anion gap metabolic acidosis, UA showed ketones, glucose * suspect euglycemic diabetic ketoacidosis as patient was still taking Jardiance and metformin * off insulin gtt and transitioned to SSI + Lantus * glycemic control per intensivisit/hospitalist Case discussed with Dr. Galvez I will continue to follow the patient with you while he remains hospitalized and make further recommendations as deemed necessary. Thank you for allowing me to participate in the care of this patient. L History of Present Illness Reason for Consult Consult date: 01/22/25 Reason for consult: hypernatremia Chief Complaint Chief complaint: pna/flu/euglycemia dka History of Present Illness Narrative: Most of the information I have obtained is from review of the electronic medical record as well as discussion with the physician/nurses involved in the patient's care has been unable to get any history from the patient as she is currently intubated and on mechanical ventilation. The patient is a 54-year-old male with a past medical history as outlined below who presented to [facility] Emergency Room several days ago with complaints of shortness of breath. Apparently, the patient developed symptoms of generalized weakness and fatigue in association with shortness of breath while she was on a 7 day cruise with her daughter. The cruise had stops in the [place], [place] in the [place]. About 4 days into the cruise, as when she developed a cough with a sore throat. Two days prior to her presentation to the emergency room, she reported inability to eat or drink anything do the sore throat she continued to take her medications including Jardiance and metformin. On the day of admission, her symptoms seem to culminate in difficulty breathing that a progressively worsened to the point where she came to the emergency room straight from the airport for further assessment. On presentation to the emergency room, she was noted be quite weak and fatigued quite tachypneic. Due to her ongoing and worsening clinical status, she was subsequently intubated in the emergency room for airway protection. Subsequent workup and evaluation demonstrated euglycemic diabetic ketoacidosis with an elevated beta hydroxybutyrate, normal lactic acid, white blood cell count of 10.3 with associated 23% bandemia, CRP of greater than 45, and procalcitonin level of 7.4. Viral testing for RSV and COVID were negative but she was found to be positive for influenza A. It was felt that her decline in respiratory status was related to influenza a and possible pneumonia. While she was in the emergency room, she received 3 L of IV fluids and started on empiric antibiotics including cefepime, vancomycin, doxycycline after appropriate cultures were obtained. She was also started on insulin drip per DKA protocol as well. She was subsequently transferred to the intensive care unit for further evaluation and therapy. Since her admission to the ICU, she has been weaned off insulin drip and has been transition to sliding scale insulin and Lantus. She did have some issues with hypotension so she had a central line placed and was initiated on vasopressor therapy. however, at this time, she has been weaned off all vasopressor therapy and remains hemodynamically stable. She continues to require mechanical ventilatory support for her acute respiratory failure. Renal consultation was requested due to her hypernatremia. From review of her records, her sodium level started to rise on 01/20 with a reading of 146 millimoles per L with subsequent readings of 149 on 01/21 and currently at 1:50 a.m. millimoles per L this morning. Surprisingly, this rise in her sodium level has continued to occur despite titration of her free water flushes. She continues to make reasonable urine output without any evidence of polyuria. She has no other critical electrolyte abnormalities and her renal function appears to be well within normal limits as well. From review of her records prior to this hospitalization, she never had any issues or problems with hyponatremia or hyponatremia as far as I can tell. Currently, the time my evaluation, she remains on mechanical ventilation and in no acute distress. Review of Systems 2 Review of Systems: As per HPI. COUNT INCLUDES THE [facility] Past Medical History Medical History Influenza A Chronic low blood pressure Family History Family History Father Diabetes mellitus Mother Diabetes mellitus Other Family history of cardiovascular disease Hypertension Social History Social History Smoking status: Never smoker Alcohol intake: current Drinks per week: 1 Substance use type: does not use Spiritual care concerns: No Meds Home Medications and Allergies Home Medications ?Medication ?Instructions ?Recorded ?Confirmed ?Type atorvastatin 20 mg tablet 20 mg PO QPM 01/18/25 01/18/25 History cyclobenzaprine 10 mg tablet 10 mg PO TID 01/18/25 01/18/25 History empagliflozin 10 mg tablet 10 mg PO DAILY 01/18/25 01/18/25 History (Jardiance) estradiol 1 mg tablet 1 mg PO DAILY 01/18/25 01/18/25 History metformin 500 mg tablet,extended 500 mg PO .Q12HR 01/18/25 01/18/25 History release 24 hr metoprolol succinate 50 mg 50 mg PO DAILY 01/18/25 01/18/25 History tablet,extended release 24 hr nabumetone 750 mg tablet 750 mg PO .q12hr 01/18/25 01/18/25 History semaglutide 2 mg/dose (8 mg/3 mL) 2 mg subcut WEEKLY 01/18/25 01/18/25 History subcutaneous pen injector (Ozempic) spironolactone 100 mg tablet 100 mg PO Q12H 01/18/25 01/18/25 History Allergies Allergy/AdvReac Type Severity Reaction Status Date / Time Sulfa (Sulfonamide Allergy Unknown Rash Verified 01/18/25 16:13 Antibiotics) Vital Signs Vital Signs Temp Pulse Resp BP Pulse Ox O2 Del Method FiO2 01/22/25 10:14 128 H 93 Mechanical Ventilation 45 01/22/25 10:00 120 H 01/22/25 10:00 122 H 21 H 117/70 93 01/22/25 08:13 121 H 92 Mechanical Ventilation 01/22/25 08:00 45 01/22/25 08:00 118 H 01/22/25 08:00 118 H 20 92 Mechanical Ventilation 01/22/25 08:00 100.1 F H 122 H 21 H 115/70 91 01/22/25 06:00 98.6 F 114 H 20 109/69 94 01/22/25 06:00 114 H 01/22/25 04:59 121 H 91 Mechanical Ventilation 01/22/25 04:00 99.4 F 111 H 20 104/65 92 01/22/25 04:00 111 H 01/22/25 03:57 111 H 20 92 Mechanical Ventilation 01/22/25 03:54 30 01/22/25 02:30 114 H 92 Mechanical Ventilation 01/22/25 02:00 99.4 F 117 H 20 107/68 92 01/22/25 02:00 117 H 01/22/25 00:20 109 H 20 92 Mechanical Ventilation 30 01/22/25 00:00 113 H 01/22/25 00:00 30 01/22/25 00:00 98.5 F 109 H 20 106/72 92 01/21/25 23:01 102 H 93 Mechanical Ventilation 01/21/25 22:00 99.4 F 104 H 20 100/59 L 92 01/21/25 22:00 103 H 01/21/25 20:30 104 H 91 Mechanical Ventilation 01/21/25 20:15 102 H 20 94 Mechanical Ventilation 01/21/25 20:00 102 H 01/21/25 20:00 30 01/21/25 20:00 99.4 F 102 H 20 103/61 94 01/21/25 18:00 99.9 F H 103 H 20 104/41 L 93 01/21/25 18:00 103 H 01/21/25 17:01 103 H 96 Mechanical Ventilation 01/21/25 16:00 103 H 01/21/25 16:00 103 H 20 96 Mechanical Ventilation 01/21/25 16:00 100.1 F H 104 H 20 97/59 L 96 01/21/25 16:00 30 Exam 2 Narrative: GENERAL APPEARANCE: middle aged female intubated and on mechanical ventilation HEENT: normocephalic, atraumatic, normal conjunctiva and sclera, nares patient NECK: no lymphadenopathy, thyromegaly, or JVD MOUTH: normal lips, teeth, and gums; ETT in place CARDIOVASCULAR: tachycardic, normal S1 and S2, no rub RESPIRATORY: coarse breath sounds, bibasilar rales noted ABDOMEN: soft, nontender, nondistended, diminished bowel sounds present EXTREMITIES: no evidence of cyanosis, clubbing, or edema NEUROLOGICAL: unable to fully assess Results Lab Results 02/05/25 06:27 02/05/25 06:27 Lab results: Most recent lab results ABG pH 7.447 (7.350-7.450) 01/22/25 04:46 ABG pCO2 42.1 mmHg (35.0-45.0) 01/22/25 04:46 ABG pO2 66.6 mmHg (80.0-100.0) L 01/22/25 04:46 ABG HCO3 28.4 mEq/l (22.0-26.0) H 01/22/25 04:46 ABG O2 Saturation 93.9 % (95.0-100.0) L 01/22/25 04:46 Calcium 8.6 mg/dL (8.4-10.2) 01/22/25 05:16 Phosphorus 2.7 mg/dL (2.5-4.5) 01/22/25 05:16 Magnesium 2.5 mg/dL (1.6-2.3) H 01/22/25 05:16
[2025-01-22] MEDS: DOXYCYCLINE 100 MG/NS 100 ML 100 MG/100 ML BAG IVPB ×2 (10:52→22:00)
[2025-01-22 11:28] LABS: Glucose Point of Care 162 mg/dl (65-105)
[2025-01-22] MEDS: ACETAMINOPHEN ELIXIR 325 MG/10.15 ML UDC 650 MG FEED TUBE ×2 (12:15→17:12)
--- NOTE | 2025-01-22 12:25 | P.PNINT_ITS ---
Progress Note: A&P Assessment and Plan (1) Septic shock: Code(s): A41.9 - Sepsis, unspecified organism; R65.21 - Severe sepsis with septic shock Status: Acute Assessment and Plan: Patient presented with bilateral lower lobe infiltrates, pneumonia, hypotension overnight requiring central line placement on 01/19, and Levophed -continue Levophed to maintain SBP> 90 mmHg, as daughter stateThat patient has normal SBP is in the 80s to 90s -01/19: switch Levophed to phenylephrine as patient is tachycardic, will wean Levophed to off -elevated CRP and procalcitonin on admission -remains febrile, continue Tylenol -this could be related to influenza A and pneumonia -01/20: currently off all pressors -01/18: Blood cultures growing MSSA -01/19: Sputum cultures obtained and pending -status post IV fluids and albumin with improvement in heart -lactic acid remains normal -01/20: Repeat blood cultures negative so far -On doxycycline (01/18) -01/21: started on Cefazolin and DC cefepime, vancomycin (01/21) 1625: Echocardiogram Summary 1. Left ventricular chamber dimension is normal. 2. Left ventricular systolic function is normal, estimated at 60-65. 3. The left ventricular diastolic function is grade I diastolic dysfunction. 4. Right ventricular chamber dimension is mildly enlarged. 5. Right ventricular systolic function is normal. 6. Right atrial chamber dimension is mildly enlarged. 7. There is mild to moderate tricuspid valve regurgitation. (2) Acute hypoxic respiratory failure: Code(s): J96.01 - Acute respiratory failure with hypoxia Status: Acute Assessment and Plan: 01/18: Patient presented the ED with shortness of breath, weakness, diabetic ketoacidosis, pneumonia 01/18: Intubated in the ED for airway protection and hypoxia -remains on CMV mode of ventilation, peep of 5, 30% FiO2, titrate FiO2 to maintain O2 sat > 92% -chest x-ray and ABGs reviewed, ventilator adjusted - CTA chest on admission showed bilateral lower lobe pneumonia - OFF sedation since 0612 am -positive for influenza A, On Tamiflu 01/15: CTA chest IMPRESSION: 1. No pulmonary embolism. 2. Bilateral pneumonia in the lower lobes. Pneumonia in the lingula. Minimal changes of pneumonia in the right middle lobe. Pneumonia in the right upper lobe posteriorly. Follow-up to resolution is advised. (3) PNA (pneumonia): Code(s): J18.9 - Pneumonia, unspecified organism Status: Acute Assessment and Plan: Bilateral lower lobe pneumonia, continue antibiotics as above -currently intubated on mechanical ventilation (4) DKA (diabetic ketoacidosis): Code(s): E11.10 - Type 2 diabetes mellitus with ketoacidosis without coma Status: Acute Assessment and Plan: Patient presented with elevated beta hydroxybutyrate, anion gap metabolic acidosis, UA showed ketones, glucose -likely euglycemic diabetic ketoacidosis as patient was still taking Jardiance and metformin -this given 3 L IV fluids since admission, started on insulin infusion per DKA protocol -overnight patient was transition to long-acting insulin Lantus, and sliding scale insulin with Accu-Chek -continue to monitor -continue Lantus (5) Flu: Code(s): J11.1 - Influenza due to unidentified influenza virus with other respiratory manifestations Status: Acute Assessment and Plan: Patient was tested positive for influenza A -continue Tamiflu (6) Chronic low blood pressure: Code(s): I95.89 - Other hypotension Status: Acute Assessment and Plan: Patient has chronic low blood pressures, according the daughter systolic blood pressures range in the 80s to 90s (7) Sinus tachycardia: Code(s): R00.0 - Tachycardia, unspecified Status: Acute Assessment and Plan: Has a history of chronic sinus tachycardia for which she is on metoprolol at home, will hold for now since patient is on pressors -patient's heart rate is in the 100-110 which is her baseline (8) PCOS (polycystic ovarian syndrome): Code(s): E28.2 - Polycystic ovarian syndrome Status: Acute Assessment and Plan: On spironolactone which will continue to hold for now due to patient being on pressors, hypovolemic hold estradiol (9) Hyperlipidemia: Code(s): E78.5 - Hyperlipidemia, unspecified Status: Acute Assessment and Plan: continue Atorvastatin (10) Electrolyte imbalance: Code(s): E87.8 - Other disorders of electrolyte and fluid balance, not elsewhere classified Status: Acute Assessment and Plan: Hypernatremia: Will increase his free water flush to 200 ml Q4hr (11) Encephalopathy: Code(s): G93.40 - Encephalopathy, unspecified Status: Acute Assessment and Plan: off sedation since 01/21 am, pt not only opens eyes and intermittent Plan DVT prophylaxis: Lovenox Stress ulcer prophylaxis: Protonix Nutrition: Tolerating tube feeds Code Status: Full code Critical Care Time Spent: 32 minutes Discussed with daughter at bedside and updated her with patient's condition and plan of care. I answered all questions Due to a high probability of clinically significant, life threatening deteriora tion, the patient required my highest level of preparedness to intervene emergently and I personally spent this critical care time directly and personally managing the patient. This critical care time included obtaining a history; examining the patient; pulse oximetry; ordering and review of studies; arranging urgent treatment with development of a management plan; evaluation of patient's response to treatment; frequent reassessment; and discussions with other providers. It was exclusive of separately billable procedures and treating other patients and teaching time. Please see Assessment and Plan section and the rest of the note for further information on patient assessment and treatment This dictation may have been done utilizing a voice recognition system. Attempts have been made to correct errors. However, there may be uncorrected grammatical, spelling, and recognitions errors present. Subjective Date/time seen: 01/22/25 12:25 Interval history: Reason for consult: Septic shock, acute respiratory failure, pneumonia, euglycemic diabetic ketoacidosis, 01/22/2025: Patient seen and examined in the ICU, remains intubated on CMV mode of ventilation, peep of 5, 30% FiO2. Off all sedation since 06 am, she does open her eyes and moved her feet to commands. Off Dez-Synephrine, heart rate stable. Off all IV fluids, urine output has been adequate, tolerating tube feeds, fever curve improving. Tolerating tube feeds Review of Systems Review of Systems: ROS unobtainable: Yes unobtainable due to endotracheal tube and unobtainable due to medical condition Exam Narrative: General: Intubated and sedated, in no acute distress HEENT:? Pupils small and reactive bilaterally, sclera is clear, ETT in place Neck:? Supple, right IJ central line in place Respiratory:? Coarse breath sounds bilaterally, decreased at bases, rales bilaterally at bases, no wheezing Cardiac:? Sinus tachycardia, S1-S2 was normal, no murmurs Abdomen:? Soft, nontender, nondistended, hypoactive bowel sounds Extremities:? No edema, palpable pedal pulses Neuro:? Intubated, Off all sedation since 01/21 am, she does open her eyes and moved her feet to commands. Skin:? No lesions noted Psych:? Unable to assess at this time Objective Data Vital Signs Vital Signs: Vital Signs - 24 hr 01/21/25 12:49 01/21/25 14:00 01/21/25 14:00 Temperature 100.9 F H Pulse Rate 102 H 102 H Respiratory Rate 20 20 Blood Pressure Pulse Oximetry Oxygen Delivery Fraction of Inspired Oxygen 01/21/25 14:00 01/21/25 14:00 01/21/25 14:00 Temperature Pulse Rate 102 H 102 H Respiratory Rate 20 Blood Pressure 93/56 L Pulse Oximetry 96 98 Oxygen Delivery Mechanical Ventilation Fraction of Inspired Oxygen 30 01/21/25 14:28 01/21/25 14:30 01/21/25 16:00 Temperature Pulse Rate 105 H Respiratory Rate Blood Pressure Pulse Oximetry 94 Oxygen Delivery Mechanical Ventilation Fraction of Inspired Oxygen 30 30 30 01/21/25 16:00 01/21/25 16:00 01/21/25 16:00 Temperature 100.1 F H Pulse Rate 104 H 103 H 103 H Respiratory Rate 20 20 Blood Pressure 97/59 L Pulse Oximetry 96 96 Oxygen Delivery Mechanical Ventilation Fraction of Inspired Oxygen 30 01/21/25 17:01 01/21/25 18:00 01/21/25 18:00 Temperature 99.9 F H Pulse Rate 103 H 103 H 103 H Respiratory Rate 20 Blood Pressure 104/41 L Pulse Oximetry 96 93 Oxygen Delivery Mechanical Ventilation Fraction of Inspired Oxygen 30 01/21/25 20:00 01/21/25 20:00 01/21/25 20:00 Temperature 99.4 F Pulse Rate 102 H 102 H Respiratory Rate 20 Blood Pressure 103/61 Pulse Oximetry 94 Oxygen Delivery Fraction of Inspired Oxygen 30 01/21/25 20:15 01/21/25 20:30 01/21/25 22:00 Temperature Pulse Rate 102 H 104 H 103 H Respiratory Rate 20 Blood Pressure Pulse Oximetry 94 91 Oxygen Delivery Mechanical Ventilation Mechanical Ventilation Fraction of Inspired Oxygen 30 30 01/21/25 22:00 01/21/25 23:01 01/22/25 00:00 Temperature 99.4 F 98.5 F Pulse Rate 104 H 102 H 109 H Respiratory Rate 20 20 Blood Pressure 100/59 L 106/72 Pulse Oximetry 92 93 92 Oxygen Delivery Mechanical Ventilation Fraction of Inspired Oxygen 30 01/22/25 00:00 01/22/25 00:00 01/22/25 00:20 Temperature Pulse Rate 113 H 109 H Respiratory Rate 20 Blood Pressure Pulse Oximetry 92 Oxygen Delivery Mechanical Ventilation Fraction of Inspired Oxygen 30 30 01/22/25 02:00 01/22/25 02:00 01/22/25 02:30 Temperature 99.4 F Pulse Rate 117 H 117 H 114 H Respiratory Rate 20 Blood Pressure 107/68 Pulse Oximetry 92 92 Oxygen Delivery Mechanical Ventilation Fraction of Inspired Oxygen 30 01/22/25 03:54 01/22/25 03:57 01/22/25 04:00 Temperature Pulse Rate 111 H 111 H Respiratory Rate 20 Blood Pressure Pulse Oximetry 92 Oxygen Delivery Mechanical Ventilation Fraction of Inspired Oxygen 30 30 01/22/25 04:00 01/22/25 04:59 01/22/25 06:00 Temperature 99.4 F Pulse Rate 111 H 121 H 114 H Respiratory Rate 20 Blood Pressure 104/65 Pulse Oximetry 92 91 Oxygen Delivery Mechanical Ventilation Fraction of Inspired Oxygen 30 01/22/25 06:00 01/22/25 08:00 01/22/25 08:00 Temperature 98.6 F 100.1 F H Pulse Rate 114 H 122 H 118 H Respiratory Rate 20 21 H 20 Blood Pressure 109/69 115/70 Pulse Oximetry 94 91 92 Oxygen Delivery Mechanical Ventilation Fraction of Inspired Oxygen 45 01/22/25 08:00 01/22/25 08:00 01/22/25 08:13 Temperature Pulse Rate 118 H 121 H Respiratory Rate Blood Pressure Pulse Oximetry 92 Oxygen Delivery Mechanical Ventilation Fraction of Inspired Oxygen 45 45 01/22/25 10:00 01/22/25 10:00 01/22/25 10:14 Temperature Pulse Rate 122 H 120 H 128 H Respiratory Rate 21 H Blood Pressure 117/70 Pulse Oximetry 93 93 Oxygen Delivery Mechanical Ventilation Fraction of Inspired Oxygen 45 01/22/25 12:00 01/22/25 12:00 01/22/25 12:00 Temperature Pulse Rate 126 H 126 H Respiratory Rate 20 Blood Pressure Pulse Oximetry 94 Oxygen Delivery Mechanical Ventilation Fraction of Inspired Oxygen 45 45 01/22/25 12:00 01/22/25 12:00 01/22/25 12:15 Temperature 101.1 F H 101.1 F H Pulse Rate 126 H 126 H Respiratory Rate 20 21 H Blood Pressure 111/62 111/62 Pulse Oximetry 94 94 Oxygen Delivery Fraction of Inspired Oxygen Intake/Output Intake/Output: Intake & Output 01/19/25 01/20/25 01/21/25 01/22/25 23:59 23:59 23:59 23:59 Intake Total 2647.0 2289.0 2468.967 1011 Output Total 2050 1950 2350 1200 Balance 597.0 339.0 118.967 -189 Meds/Results Medications: Active Medications Generic Name Dose Route Start Last Admin Trade Name Freq PRN Reason Stop Dose Admin Acetaminophen 650 mg 01/18/25 20:28 01/22/25 12:15 Acetaminophen Elixir 325 Mg/10.15 Ml Udc FEED TUBE 650 mg Q4H PRN Administration Mild Pain (1-3) or Fever Atorvastatin Calcium 20 mg 01/19/25 18:00 01/21/25 17:24 Atorvastatin 20 Mg Tablet PO 20 mg QPM SESAR Administration Dextrose 12.5 gm 01/18/25 23:15 Dextrose 50% 25 Gm/50 Ml Syringe IV PUSH PRN PRN Hypoglycemia Protocol Enoxaparin Sodium 40 mg 01/20/25 09:00 01/22/25 09:07 Enoxaparin 40 Mg/0.4 Ml Syringe SUB-Q 40 mg DAILY SESAR Administration Estradiol 1 mg 01/19/25 09:00 Estradiol 1 Mg Tablet PO DAILY SESAR Glucagon 1 mg 01/18/25 23:15 Glucagon For Inj 1 Mg Vial IM PRN PRN Hypoglycemia Protocol Glucose 15 gm 01/18/25 23:15 Glucose Oral Gel 15 Gm Of Glucse In 37.5 Gm Tube PO PRN PRN Hypoglycemia Protocol Doxycycline Hyclate 100 mg in 100 mls @ 100 mls/hr 01/18/25 23:00 01/22/25 10:52 Vibramycin 100 Mg/Ns 100 Ml IVPB 01/23/25 22:59 100 mls/hr Q12H SESAR Administration Dextrose 1,000 mls @ 100 mls/hr 01/18/25 23:15 Dextrose 5% 1,000 Ml IVPB PRN PRN Hypoglycemia Protocol Cefazolin Sodium 2 gm in 50 mls @ 100 mls/hr 01/21/25 14:00 01/22/25 06:00 Ancef 2 Gm/D5w 50 Ml IVPB Infused Q8H [facility] Infusion Insulin Aspart 2 - 5 units 01/19/25 01:00 01/22/25 08:59 Insulin Aspart (*Bkc) 100 Units/Ml SUB-Q Not Given Q4HR [facility] Protocol Insulin Glargine 16 units 01/21/25 21:00 01/21/25 21:02 Insulin Glargine (*Bkc) 100 Units/Ml SUB-Q 16 units HS [facility] Administration Metoprolol Tartrate 25 mg 01/19/25 09:00 Metoprolol Tartrate 25 Mg Tablet PO Q12HR [facility] Multi-Ingred Cream/Lotion/Oil/Oint 1 applic 01/19/25 09:00 01/22/25 09:08 Mineral Oil/White Petrolatum Ointment EACH EYE 1 applic Q12HR [facility] Administration Ondansetron HCl 4 mg 01/19/25 01:20 Ondansetron Inj 4 Mg/2 Ml Vial IV PUSH Q4H PRN Nausea And Vomiting Oseltamivir Phosphate 75 mg 01/21/25 09:00 01/22/25 09:08 Oseltamivir Phosphate Oral Susp 75 Mg/12.5 Ml Syringe PO 01/22/25 21:01 75 mg Q12HR [facility] Administration Pantoprazole Sodium 40 mg 01/20/25 09:00 01/22/25 09:07 Pantoprazole Sodium Iv 40 Mg Vial IV PUSH 40 mg QAM SESAR Administration Sodium Chloride 10 ml 01/19/25 06:00 01/22/25 07:27 Central Line Flush IV PUSH 10 ml Q8HR [facility] Administration Sodium Chloride 20 ml 01/19/25 04:13 Central Line Flush IV PUSH PRN PRN after blood draws Spironolactone 100 mg 01/19/25 09:00 Spironolactone 50 Mg Tablet PO Q12HR [facility] Radiology Results: ITS Impressions Chest CTA 01/18/25 15:25 IMPRESSION: 1. No pulmonary embolism. 2. Bilateral pneumonia in the lower lobes. Pneumonia in the lingula. Minimal changes of pneumonia in the right middle lobe. Pneumonia in the right upper lobe posteriorly. Follow-up to resolution is advised. Chest X-Ray 01/22/25 05:33 Impression: Bilateral extensive airspace consolidation the lung bases and perihilar regions, with possible minimal improvement in the right lung. Correlate for pulmonary edema versus bilateral pneumonia. Minimal left pleural effusion. Stable support tubes. Head CT 01/22/25 10:18 Impression: No significant abnormality seen. Labs Labs: Laboratory Results - last 24 hr 01/21/25 01/21/25 01/21/25 16:31 21:01 23:54 WBC RBC Hgb Hct MCV MCH MCHC RDW Plt Count MPV Immature Gran % (Auto) Neut % (Auto) Lymph % (Auto) Isabella % (Auto) Eos % (Auto) Baso % (Auto) Lymph # (Auto) Isabella # (Auto) Eos # (Auto) Baso # (Auto) Abs Immat Gran (auto) Absolute Neuts (auto) Absolute Nucleated RBC Total Counted Neutrophils % (Manual) Band Neutrophils % Lymphocytes % (Manual) Monocytes % (Manual) Basophils % (Manual) Nucleated RBC % Abs Neuts (Manual) Abs Lymphs (Manual) Abs Monocytes (Manual) Abs Basophils (Manual) Smudge Cells Platelet Estimate Clumped Platelets Anisocytosis Schistocytes Puncture Site ABG pH ABG pCO2 ABG pO2 ABG PO2/FiO2 Ratio ABG HCO3 ABG O2 Saturation ABG O2 Content ABG Base Excess A-a Gradient Oxyhemoglobin Total Hemoglobin O2 Delivery Device O2 Liters/Min Minute Volume Vent Rate Vent Mode FiO2 Tidal Volume PEEP Peak Inspir Pressure Pressure Support Sodium Potassium Chloride Carbon Dioxide Anion Gap BUN Creatinine Estim Creat Clear Calc Estimated GFR Glucose POC Capillary Glucose 179 H 189 H 185 H Calcium Phosphorus Magnesium Total Bilirubin AST ALT Alkaline Phosphatase Total Protein Albumin 01/22/25 01/22/25 01/22/25 04:28 04:46 05:16 WBC 16.6 H RBC 3.26 L Hgb 10.3 L Hct 30.8 L MCV 94.5 MCH 31.6 MCHC 33.4 RDW 15.0 H Plt Count 158 MPV 10.4 Immature Gran % (Auto) Not Reportable Neut % (Auto) Not Reportable Lymph % (Auto) Not Reportable Isabella % (Auto) Not Reportable Eos % (Auto) Not Reportable Baso % (Auto) Not Reportable Lymph # (Auto) Not Reportable Isabella # (Auto) Not Reportable Eos # (Auto) Not Reportable Baso # (Auto) Not Reportable Abs Immat Gran (auto) Not Reportable Absolute Neuts (auto) Not Reportable Absolute Nucleated RBC Not Reportable Total Counted 100 Neutrophils % (Manual) 76 H Band Neutrophils % 11 H Lymphocytes % (Manual) 9.0 L Monocytes % (Manual) 3 Basophils % (Manual) 1 Nucleated RBC % Not Reportable Abs Neuts (Manual) 14.44 H Abs Lymphs (Manual) 1.49 Abs Monocytes (Manual) 0.49 Abs Basophils (Manual) 0.16 H Smudge Cells Present Platelet Estimate Adequate Clumped Platelets Present Anisocytosis 1+ Schistocytes None seen Puncture Site Right radial ABG pH 7.447 ABG pCO2 42.1 ABG pO2 66.6 L ABG PO2/FiO2 Ratio 2.22 ABG HCO3 28.4 H ABG O2 Saturation 93.9 L ABG O2 Content 14.2 L ABG Base Excess 4.0 A-a Gradient 97.8 Oxyhemoglobin 93.0 Total Hemoglobin 10.8 L O2 Delivery Device Ventilator O2 Liters/Min Not Reportable Minute Volume Not Reportable Vent Rate 20 Vent Mode Cmv FiO2 30 Tidal Volume 330 PEEP 5 Peak Inspir Pressure Not Reportable Pressure Support Not Reportable Sodium 150 H Potassium 3.7 Chloride 114 H Carbon Dioxide 30 Anion Gap 6 BUN 27 H Creatinine 0.58 L Estim Creat Clear Calc 82 Estimated GFR > 60 Glucose 152 H POC Capillary Glucose 166 H Calcium 8.6 Phosphorus 2.7 Magnesium 2.5 H Total Bilirubin 0.7 AST 58 H ALT 32 Alkaline Phosphatase 117 Total Protein 6.2 L Albumin 3.0 L 01/22/25 01/22/25 08:53 11:25 WBC RBC Hgb Hct MCV MCH MCHC RDW Plt Count MPV Immature Gran % (Auto) Neut % (Auto) Lymph % (Auto) Isabella % (Auto) Eos % (Auto) Baso % (Auto) Lymph # (Auto) Isabella # (Auto) Eos # (Auto) Baso # (Auto) Abs Immat Gran (auto) Absolute Neuts (auto) Absolute Nucleated RBC Total Counted Neutrophils % (Manual) Band Neutrophils % Lymphocytes % (Manual) Monocytes % (Manual) Basophils % (Manual) Nucleated RBC % Abs Neuts (Manual) Abs Lymphs (Manual) Abs Monocytes (Manual) Abs Basophils (Manual) Smudge Cells Platelet Estimate Clumped Platelets Anisocytosis Schistocytes Puncture Site ABG pH ABG pCO2 ABG pO2 ABG PO2/FiO2 Ratio ABG HCO3 ABG O2 Saturation ABG O2 Content ABG Base Excess A-a Gradient Oxyhemoglobin Total Hemoglobin O2 Delivery Device O2 Liters/Min Minute Volume Vent Rate Vent Mode FiO2 Tidal Volume PEEP Peak Inspir Pressure Pressure Support Sodium Potassium Chloride Carbon Dioxide Anion Gap BUN Creatinine Estim Creat Clear Calc Estimated GFR Glucose POC Capillary Glucose 170 H 162 H Calcium Phosphorus Magnesium Total Bilirubin AST ALT Alkaline Phosphatase Total Protein Albumin Quality VTE Prophylaxis VTE prophylaxis: pharmacologic ordered
--- NOTE | 2025-01-22 12:34 | PCNFU ---
Nutrition Follow-Up Complete: Suboptimal Energy Expenditure as related to mechanical vent as evidenced by NPO. Goal: Meet estimated nutritional needs. Patient is progressing towards goal. We will continue current goal. Pt current nutrition is Vital AF 1.2 at 60 ml/hr. Last recorded weight is 63.6 kg, down from 64 kg on admit. Bowel Motility: Last reported BM 01/19 Labs Reviewed: Glu 152, BUN 27 ,Na 150, HCt 30.8, Hgb 10.3 Meds Noted: Lovenox, Protonix, Tamiflu. Skin: WNL Additional Notes:Patient remains on mechanical vent. Tube feedings are being tolerated of Vital AF. Plans to reach goal rate today of 60 ml/hr. Total Nutrition: 1584 kcal/99 gm protein/1071 ml water. Flush increased to 200 ml q 4 hours from 120 ml due to elevated Na lab. Agree with diet orders. Will monitor weight, labs, skin, diet orders, meds, tube feeding tolerance every Saturday and Saturday.
[2025-01-22 13:25] LABS: Glucose Point of Care 185 mg/dl (65-105)
--- NOTE | 2025-01-22 14:13 | P.PNIM_ITS ---
Progress Note: A&P Assessment and Plan (1) Septic shock: Code(s): A41.9 - Sepsis, unspecified organism; R65.21 - Severe sepsis with septic shock Status: Acute Assessment and Plan: Patient presented with bilateral lower lobe infiltrates, pneumonia, hypotension overnight requiring central line placement on 01/19, and Levophed -continue Levophed to maintain SBP> 90 mmHg, as daughter stateThat patient has normal SBP is in the 80s to 90s -01/19: switch Levophed to phenylephrine as patient is tachycardic, will wean Levophed to off -elevated CRP and procalcitonin on admission -remains febrile, continue Tylenol -this could be related to influenza A and pneumonia -01/20: currently off all pressors -01/18: Blood cultures growing MSSA -01/19: Sputum cultures obtained and pending -status post IV fluids and albumin with improvement in heart -lactic acid remains normal -01/20: Repeat blood cultures negative so far -On doxycycline (01/18) -01/21: started on Cefazolin and DC cefepime, vancomycin (01/21) 1625: Echocardiogram Summary 1. Left ventricular chamber dimension is normal. 2. Left ventricular systolic function is normal, estimated at 60-65. 3. The left ventricular diastolic function is grade I diastolic dysfunction. 4. Right ventricular chamber dimension is mildly enlarged. 5. Right ventricular systolic function is normal. 6. Right atrial chamber dimension is mildly enlarged. 7. There is mild to moderate tricuspid valve regurgitation. (2) Acute hypoxic respiratory failure: Code(s): J96.01 - Acute respiratory failure with hypoxia Status: Acute Assessment and Plan: 01/18: Patient presented the ED with shortness of breath, weakness, diabetic ketoacidosis, pneumonia 01/18: Intubated in the ED for airway protection and hypoxia -remains on CMV mode of ventilation, peep of 5, 30% FiO2, titrate FiO2 to maintain O2 sat > 92% -chest x-ray and ABGs reviewed, ventilator adjusted - CTA chest on admission showed bilateral lower lobe pneumonia - OFF sedation since 0612 am -positive for influenza A, On Tamiflu 01/15: CTA chest IMPRESSION: 1. No pulmonary embolism. 2. Bilateral pneumonia in the lower lobes. Pneumonia in the lingula. Minimal changes of pneumonia in the right middle lobe. Pneumonia in the right upper lobe posteriorly. Follow-up to resolution is advised. (3) PNA (pneumonia): Code(s): J18.9 - Pneumonia, unspecified organism Status: Acute Assessment and Plan: Bilateral lower lobe pneumonia, continue antibiotics as above -currently intubated on mechanical ventilation (4) DKA (diabetic ketoacidosis): Code(s): E11.10 - Type 2 diabetes mellitus with ketoacidosis without coma Status: Acute Assessment and Plan: Patient presented with elevated beta hydroxybutyrate, anion gap metabolic acidosis, UA showed ketones, glucose -likely euglycemic diabetic ketoacidosis as patient was still taking Jardiance and metformin -this given 3 L IV fluids since admission, started on insulin infusion per DKA protocol -overnight patient was transition to long-acting insulin Lantus, and sliding scale insulin with Accu-Chek -continue to monitor -continue Lantus (5) Flu: Code(s): J11.1 - Influenza due to unidentified influenza virus with other respiratory manifestations Status: Acute Assessment and Plan: Patient was tested positive for influenza A -continue Tamiflu (6) Chronic low blood pressure: Code(s): I95.89 - Other hypotension Status: Acute Assessment and Plan: Patient has chronic low blood pressures, according the daughter systolic blood pressures range in the 80s to 90s (7) Sinus tachycardia: Code(s): R00.0 - Tachycardia, unspecified Status: Acute Assessment and Plan: Has a history of chronic sinus tachycardia for which she is on metoprolol at home, will hold for now since patient is on pressors -patient's heart rate is in the 100-110 which is her baseline (8) PCOS (polycystic ovarian syndrome): Code(s): E28.2 - Polycystic ovarian syndrome Status: Acute Assessment and Plan: On spironolactone which will continue to hold for now due to patient being on pressors, hypovolemic hold estradiol (9) Hyperlipidemia: Code(s): E78.5 - Hyperlipidemia, unspecified Status: Acute Assessment and Plan: continue Atorvastatin (10) Electrolyte imbalance: Code(s): E87.8 - Other disorders of electrolyte and fluid balance, not elsewhere classified Status: Acute Assessment and Plan: Hypernatremia: Will increase his free water flush to 200 ml Q4hr (11) Encephalopathy: Code(s): G93.40 - Encephalopathy, unspecified Status: Acute Assessment and Plan: off sedation since 01/21 am, pt not only opens eyes and intermittent Plan DVT prophylaxis: Lovenox Stress ulcer prophylaxis: Protonix Nutrition: Tolerating tube feeds Code Status: Full code Subjective Date/time seen: 01/22/25 14:13 Interval history: Patient was evaluated at the bedside along with the her daughter. Patient started having a dry cough while [place] Currently patient not on any sedation. Minimally awake to sternal rub. Review of Systems Review of Systems: ROS unobtainable: Yes unobtainable due to endotracheal tube, unobtainable due to medical condition and unobtainable due to mental status Exam Narrative: General: Intubated and sedated, in no acute distress HEENT:? Pupils small and reactive bilaterally, sclera is clear, ETT in place Neck:? Supple, right IJ central line in place Respiratory:? Coarse breath sounds bilaterally, decreased at bases, rales bilaterally at bases, no wheezing Cardiac:? Sinus tachycardia, S1-S2 was normal, no murmurs Abdomen:? Soft, nontender, nondistended, hypoactive bowel sounds Extremities:? No edema, palpable pedal pulses Neuro:? Intubated, Off all sedation since 01/21, she does open her eyes and moved her feet to commands. Skin:? No lesions noted Psych:? Unable to assess at this time Objective Data Vital Signs Vital Signs: Vital Signs - 24 hr 01/21/25 14:28 01/21/25 14:30 01/21/25 16:00 Temperature Pulse Rate 105 H Respiratory Rate Blood Pressure Pulse Oximetry 94 Oxygen Delivery Mechanical Ventilation Fraction of Inspired Oxygen 30 30 30 01/21/25 16:00 01/21/25 16:00 01/21/25 16:00 Temperature 100.1 F H Pulse Rate 104 H 103 H 103 H Respiratory Rate 20 20 Blood Pressure 97/59 L Pulse Oximetry 96 96 Oxygen Delivery Mechanical Ventilation Fraction of Inspired Oxygen 30 01/21/25 17:01 01/21/25 18:00 01/21/25 18:00 Temperature 99.9 F H Pulse Rate 103 H 103 H 103 H Respiratory Rate 20 Blood Pressure 104/41 L Pulse Oximetry 96 93 Oxygen Delivery Mechanical Ventilation Fraction of Inspired Oxygen 30 01/21/25 20:00 01/21/25 20:00 01/21/25 20:00 Temperature 99.4 F Pulse Rate 102 H 102 H Respiratory Rate 20 Blood Pressure 103/61 Pulse Oximetry 94 Oxygen Delivery Fraction of Inspired Oxygen 30 01/21/25 20:15 01/21/25 20:30 01/21/25 22:00 Temperature Pulse Rate 102 H 104 H 103 H Respiratory Rate 20 Blood Pressure Pulse Oximetry 94 91 Oxygen Delivery Mechanical Ventilation Mechanical Ventilation Fraction of Inspired Oxygen 30 30 01/21/25 22:00 01/21/25 23:01 01/22/25 00:00 Temperature 99.4 F 98.5 F Pulse Rate 104 H 102 H 109 H Respiratory Rate 20 20 Blood Pressure 100/59 L 106/72 Pulse Oximetry 92 93 92 Oxygen Delivery Mechanical Ventilation Fraction of Inspired Oxygen 30 01/22/25 00:00 01/22/25 00:00 01/22/25 00:20 Temperature Pulse Rate 113 H 109 H Respiratory Rate 20 Blood Pressure Pulse Oximetry 92 Oxygen Delivery Mechanical Ventilation Fraction of Inspired Oxygen 30 30 01/22/25 02:00 01/22/25 02:00 01/22/25 02:30 Temperature 99.4 F Pulse Rate 117 H 117 H 114 H Respiratory Rate 20 Blood Pressure 107/68 Pulse Oximetry 92 92 Oxygen Delivery Mechanical Ventilation Fraction of Inspired Oxygen 30 01/22/25 03:54 01/22/25 03:57 01/22/25 04:00 Temperature Pulse Rate 111 H 111 H Respiratory Rate 20 Blood Pressure Pulse Oximetry 92 Oxygen Delivery Mechanical Ventilation Fraction of Inspired Oxygen 30 30 01/22/25 04:00 01/22/25 04:59 01/22/25 06:00 Temperature 99.4 F Pulse Rate 111 H 121 H 114 H Respiratory Rate 20 Blood Pressure 104/65 Pulse Oximetry 92 91 Oxygen Delivery Mechanical Ventilation Fraction of Inspired Oxygen 30 01/22/25 06:00 01/22/25 08:00 01/22/25 08:00 Temperature 98.6 F 100.1 F H Pulse Rate 114 H 122 H 118 H Respiratory Rate 20 21 H 20 Blood Pressure 109/69 115/70 Pulse Oximetry 94 91 92 Oxygen Delivery Mechanical Ventilation Fraction of Inspired Oxygen 45 01/22/25 08:00 01/22/25 08:00 01/22/25 08:13 Temperature Pulse Rate 118 H 121 H Respiratory Rate Blood Pressure Pulse Oximetry 92 Oxygen Delivery Mechanical Ventilation Fraction of Inspired Oxygen 45 45 01/22/25 10:00 01/22/25 10:00 01/22/25 10:14 Temperature Pulse Rate 122 H 120 H 128 H Respiratory Rate 21 H Blood Pressure 117/70 Pulse Oximetry 93 93 Oxygen Delivery Mechanical Ventilation Fraction of Inspired Oxygen 45 01/22/25 12:00 01/22/25 12:00 01/22/25 12:00 Temperature Pulse Rate 126 H 126 H Respiratory Rate 20 Blood Pressure Pulse Oximetry 94 Oxygen Delivery Mechanical Ventilation Fraction of Inspired Oxygen 45 45 01/22/25 12:00 01/22/25 12:00 01/22/25 12:15 Temperature 101.1 F H 101.1 F H Pulse Rate 126 H 126 H Respiratory Rate 20 21 H Blood Pressure 111/62 111/62 Pulse Oximetry 94 94 Oxygen Delivery Fraction of Inspired Oxygen 01/22/25 13:15 01/22/25 13:56 01/22/25 14:00 Temperature 99.5 F Pulse Rate 122 H 128 H Respiratory Rate 20 Blood Pressure 116/68 Pulse Oximetry 93 92 Oxygen Delivery Mechanical Ventilation Fraction of Inspired Oxygen 45 Intake/Output Intake/Output: Intake & Output 01/19/25 01/20/25 01/21/25 01/22/25 23:59 23:59 23:59 23:59 Intake Total 2647.0 2289.0 2468.967 1011 Output Total 2050 1950 2350 1200 Balance 597.0 339.0 118.967 -189 Meds/Results Medications: Active Medications Generic Name Dose Route Start Last Admin Trade Name Freq PRN Reason Stop Dose Admin Acetaminophen 650 mg 01/18/25 20:28 01/22/25 12:15 Acetaminophen Elixir 325 Mg/10.15 Ml Udc FEED TUBE 650 mg Q4H PRN Administration Mild Pain (1-3) or Fever Atorvastatin Calcium 20 mg 01/19/25 18:00 01/21/25 17:24 Atorvastatin 20 Mg Tablet PO 20 mg QPM SESAR Administration Dextrose 12.5 gm 01/18/25 23:15 Dextrose 50% 25 Gm/50 Ml Syringe IV PUSH PRN PRN Hypoglycemia Protocol Enoxaparin Sodium 40 mg 01/20/25 09:00 01/22/25 09:07 Enoxaparin 40 Mg/0.4 Ml Syringe SUB-Q 40 mg DAILY SESAR Administration Estradiol 1 mg 01/19/25 09:00 Estradiol 1 Mg Tablet PO DAILY SESAR Glucagon 1 mg 01/18/25 23:15 Glucagon For Inj 1 Mg Vial IM PRN PRN Hypoglycemia Protocol Glucose 15 gm 01/18/25 23:15 Glucose Oral Gel 15 Gm Of Glucse In 37.5 Gm Tube PO PRN PRN Hypoglycemia Protocol Doxycycline Hyclate 100 mg in 100 mls @ 100 mls/hr 01/18/25 23:00 01/22/25 10:52 Vibramycin 100 Mg/Ns 100 Ml IVPB 01/23/25 22:59 100 mls/hr Q12H SESAR Administration Dextrose 1,000 mls @ 100 mls/hr 01/18/25 23:15 Dextrose 5% 1,000 Ml IVPB PRN PRN Hypoglycemia Protocol Cefazolin Sodium 2 gm in 50 mls @ 100 mls/hr 01/21/25 14:00 01/22/25 13:58 Ancef 2 Gm/D5w 50 Ml IVPB 100 mls/hr Q8H SESAR Administration Insulin Aspart 2 - 5 units 01/19/25 01:00 01/22/25 13:30 Insulin Aspart (*Bkc) 100 Units/Ml SUB-Q Not Given Q4HR [facility] Protocol Insulin Glargine 16 units 01/21/25 21:00 01/21/25 21:02 Insulin Glargine (*Bkc) 100 Units/Ml SUB-Q 16 units HS SESAR Administration Metoprolol Tartrate 25 mg 01/19/25 09:00 Metoprolol Tartrate 25 Mg Tablet PO Q12HR [facility] Multi-Ingred Cream/Lotion/Oil/Oint 1 applic 01/19/25 09:00 01/22/25 09:08 Mineral Oil/White Petrolatum Ointment EACH EYE 1 applic Q12HR SESAR Administration Ondansetron HCl 4 mg 01/19/25 01:20 Ondansetron Inj 4 Mg/2 Ml Vial IV PUSH Q4H PRN Nausea And Vomiting Oseltamivir Phosphate 75 mg 01/21/25 09:00 01/22/25 09:08 Oseltamivir Phosphate Oral Susp 75 Mg/12.5 Ml Syringe PO 01/22/25 21:01 75 mg Q12HR SESAR Administration Pantoprazole Sodium 40 mg 01/20/25 09:00 01/22/25 09:07 Pantoprazole Sodium Iv 40 Mg Vial IV PUSH 40 mg QAM SESAR Administration Sodium Chloride 10 ml 01/19/25 06:00 01/22/25 07:27 Central Line Flush IV PUSH 10 ml Q8HR SESAR Administration Sodium Chloride 20 ml 01/19/25 04:13 Central Line Flush IV PUSH PRN PRN after blood draws Spironolactone 100 mg 01/19/25 09:00 Spironolactone 50 Mg Tablet PO Q12HR SESAR Radiology Results: ITS Impressions Chest CTA 01/18/25 15:25 IMPRESSION: 1. No pulmonary embolism. 2. Bilateral pneumonia in the lower lobes. Pneumonia in the lingula. Minimal changes of pneumonia in the right middle lobe. Pneumonia in the right upper lobe posteriorly. Follow-up to resolution is advised. Chest X-Ray 01/22/25 05:33 Impression: Bilateral extensive airspace consolidation the lung bases and perihilar regions, with possible minimal improvement in the right lung. Correlate for pulmonary edema versus bilateral pneumonia. Minimal left pleural effusion. Stable support tubes. Head CT 01/22/25 10:18 Impression: No significant abnormality seen. Labs Labs: Laboratory Results - last 24 hr 01/21/25 01/21/25 01/21/25 16:31 21:01 23:54 WBC RBC Hgb Hct MCV MCH MCHC RDW Plt Count MPV Immature Gran % (Auto) Neut % (Auto) Lymph % (Auto) Gove % (Auto) Eos % (Auto) Baso % (Auto) Lymph # (Auto) Gove # (Auto) Eos # (Auto) Baso # (Auto) Abs Immat Gran (auto) Absolute Neuts (auto) Absolute Nucleated RBC Total Counted Neutrophils % (Manual) Band Neutrophils % Lymphocytes % (Manual) Monocytes % (Manual) Basophils % (Manual) Nucleated RBC % Abs Neuts (Manual) Abs Lymphs (Manual) Abs Monocytes (Manual) Abs Basophils (Manual) Smudge Cells Platelet Estimate Clumped Platelets Anisocytosis Schistocytes Puncture Site ABG pH ABG pCO2 ABG pO2 ABG PO2/FiO2 Ratio ABG HCO3 ABG O2 Saturation ABG O2 Content ABG Base Excess A-a Gradient Oxyhemoglobin Total Hemoglobin O2 Delivery Device O2 Liters/Min Minute Volume Vent Rate Vent Mode FiO2 Tidal Volume PEEP Peak Inspir Pressure Pressure Support Sodium Potassium Chloride Carbon Dioxide Anion Gap BUN Creatinine Estim Creat Clear Calc Estimated GFR Glucose POC Capillary Glucose 179 H 189 H 185 H Calcium Phosphorus Magnesium Total Bilirubin AST ALT Alkaline Phosphatase Total Protein Albumin 06/13/25 06/13/25 06/13/25 04:28 04:46 05:16 WBC 16.6 H RBC 3.26 L Hgb 10.3 L Hct 30.8 L MCV 94.5 MCH 31.6 MCHC 33.4 RDW 15.0 H Plt Count 158 MPV 10.4 Immature Gran % (Auto) Not Reportable Neut % (Auto) Not Reportable Lymph % (Auto) Not Reportable Gove % (Auto) Not Reportable Eos % (Auto) Not Reportable Baso % (Auto) Not Reportable Lymph # (Auto) Not Reportable Gove # (Auto) Not Reportable Eos # (Auto) Not Reportable Baso # (Auto) Not Reportable Abs Immat Gran (auto) Not Reportable Absolute Neuts (auto) Not Reportable Absolute Nucleated RBC Not Reportable Total Counted 100 Neutrophils % (Manual) 76 H Band Neutrophils % 11 H Lymphocytes % (Manual) 9.0 L Monocytes % (Manual) 3 Basophils % (Manual) 1 Nucleated RBC % Not Reportable Abs Neuts (Manual) 14.44 H Abs Lymphs (Manual) 1.49 Abs Monocytes (Manual) 0.49 Abs Basophils (Manual) 0.16 H Smudge Cells Present Platelet Estimate Adequate Clumped Platelets Present Anisocytosis 1+ Schistocytes None seen Puncture Site Right radial ABG pH 7.447 ABG pCO2 42.1 ABG pO2 66.6 L ABG PO2/FiO2 Ratio 2.22 ABG HCO3 28.4 H ABG O2 Saturation 93.9 L ABG O2 Content 14.2 L ABG Base Excess 4.0 A-a Gradient 97.8 Oxyhemoglobin 93.0 Total Hemoglobin 10.8 L O2 Delivery Device Ventilator O2 Liters/Min Not Reportable Minute Volume Not Reportable Vent Rate 20 Vent Mode Cmv FiO2 30 Tidal Volume 330 PEEP 5 Peak Inspir Pressure Not Reportable Pressure Support Not Reportable Sodium 150 H Potassium 3.7 Chloride 114 H Carbon Dioxide 30 Anion Gap 6 BUN 27 H Creatinine 0.58 L Estim Creat Clear Calc 82 Estimated GFR > 60 Glucose 152 H POC Capillary Glucose 166 H Calcium 8.6 Phosphorus 2.7 Magnesium 2.5 H Total Bilirubin 0.7 AST 58 H ALT 32 Alkaline Phosphatase 117 Total Protein 6.2 L Albumin 3.0 L 01/22/25 01/22/25 01/22/25 08:53 11:25 13:20 WBC RBC Hgb Hct MCV MCH MCHC RDW Plt Count MPV Immature Gran % (Auto) Neut % (Auto) Lymph % (Auto) Gove % (Auto) Eos % (Auto) Baso % (Auto) Lymph # (Auto) Gove # (Auto) Eos # (Auto) Baso # (Auto) Abs Immat Gran (auto) Absolute Neuts (auto) Absolute Nucleated RBC Total Counted Neutrophils % (Manual) Band Neutrophils % Lymphocytes % (Manual) Monocytes % (Manual) Basophils % (Manual) Nucleated RBC % Abs Neuts (Manual) Abs Lymphs (Manual) Abs Monocytes (Manual) Abs Basophils (Manual) Smudge Cells Platelet Estimate Clumped Platelets Anisocytosis Schistocytes Puncture Site ABG pH ABG pCO2 ABG pO2 ABG PO2/FiO2 Ratio ABG HCO3 ABG O2 Saturation ABG O2 Content ABG Base Excess A-a Gradient Oxyhemoglobin Total Hemoglobin O2 Delivery Device O2 Liters/Min Minute Volume Vent Rate Vent Mode FiO2 Tidal Volume PEEP Peak Inspir Pressure Pressure Support Sodium Potassium Chloride Carbon Dioxide Anion Gap BUN Creatinine Estim Creat Clear Calc Estimated GFR Glucose POC Capillary Glucose 170 H 162 H 185 H Calcium Phosphorus Magnesium Total Bilirubin AST ALT Alkaline Phosphatase Total Protein Albumin Quality VTE Prophylaxis VTE prophylaxis: pharmacologic ordered Hospitalist MIPS Advance Care Plan I have confirmed that the patient's Advanced Care Plan is present, code status is documented, or surrogate decision maker is listed in patient medical record.: Yes Medication Reconciliation I have utilized all available resources to obtain, update and review the patients current medications (includes all prescriptions, OTC, herbals, cannabis, and nutritional supplements).: Yes
[2025-01-22] MEDS: DEXTROSE 5% 1,000 ML 1,000 ML 75 ML IV CONT (14:54)
[2025-01-22 16:16] LABS: Glucose Point of Care 158 mg/dl (65-105)
[2025-01-22] MEDS: ATORVASTATIN 20 MG TABLET PO (17:12)
[2025-01-22] MEDS: INSULIN GLARGINE (*BKC) 100 UNITS/ML 16 UNITS SUB-Q (21:50)
[2025-01-22 21:58] LABS: Glucose Point of Care 173 mg/dl (65-105)
[2025-01-23] VITALS (43 sets, daily range): BP systolic 110–151; BP diastolic 66–79; PULSE 102–143; RESP 20–28; TEMP 36.9–38.5; O2SAT 89–97
[2025-01-23 01:20] LABS: Glucose Point of Care 193 mg/dl (65-105)
[2025-01-23] MEDS: dexmedeTOMIDine 400 MCG/100 ML 400 MCG/100 ML BAG IV CONT (04:15)
--- NOTE | 2025-01-23 04:15 | PC.NURSE ---
Patient drowsy, yet agitated. Arousable to voice, but doesn't follow commands. Continues to gag and cough while intubated. Patient vitals 151/79 137 27 91% O2 saturation. Per physician to nurse communication order, precedex drip started at this time.
[2025-01-23 04:53] LABS: Alveolar/Arterial O2 Gradient 264.3 mmHg; Base Excess ABG 3.5 mEq/l (+/-2.0); Carboxyhemoglobin 0.8 % THb (0-2.0); Fractional Inspired Oxygen 45 %; HCO3 ABG 27.1 mEq/l (22.0-26.0); Methemoglobin ABG 0.3 %THb (0-1.5); Oxygen Content ABG 14.4 %vol (16.0-22.0); Oxygen Saturation ABG 95.8 % (95.0-100.0); Oxyhemoglobin 94.6 % THb (90.0-100.0); PCO2 ABG 37.5 mmHg (35.0-45.0); PO2 ABG 74.3 mmHg (80.0-100.0); PO2 FiO2 Ratio Arterial Blood 1.65 %; Reduced Hemoglobin 4.3 %THb (0-5.0); Total Hemoglobin 10.8 g/dL (12.0-18.0); pH ABG 7.477 (7.350-7.450)
[2025-01-23 04:55] LABS: Arterial Blood Gas PEEP 5 cmH2O; Arterial Blood Gas Tidal Volume 330 ml; Arterial Blood Gas Vent Mode CMV; Arterial Blood Gas Ventilator rate 20 /MIN; Device VENTILATOR; Modified Allen's Test Unable to perform; Site Drawn RIGHT RADIAL
--- NOTE | 2025-01-23 05:46 | PCRCNOTE ---
Oxygen sat on monitor in pt's room is incorrect. It was showing 91%, while the abg showed 95%
[2025-01-23] MEDS: ceFAZolin 2 GM/D5W 50 ML 2 GM/50 ML BAG IVPB (05:59)
[2025-01-23] MEDS: CENTRAL LINE FLUSH 10 ML IV PUSH ×3 (05:59→20:46)
[2025-01-23 06:10] LABS: Glucose Point of Care 188 mg/dl (65-105)
[2025-01-23] MEDS: ACETAMINOPHEN ELIXIR 325 MG/10.15 ML UDC 650 MG FEED TUBE ×3 (06:38→17:24)
[2025-01-23 07:02] LABS: Basophils Absolute Auto 0.1 K/mm3 (0.0-0.1); Basophils Percent Auto 0.3 % (0.2-1.2); Eosinophils Absolute Auto 0.1 K/mm3 (0-0.3); Eosinophils Percent Auto 0.5 % (0-4.4); Hematocrit 29.8 % (37.0-47.0); Hemoglobin 9.9 g/dL (12.0-15.0); Immature Granulocyte Absolute 0.55 K/mm3 (0.00-0.031); Immature Granulocyte Percent A 2.8 % (0-0.5); Lymphocytes Absolute Auto 1.14 K/mm3 (0.9-3.2); Lymphocytes Percent Auto 5.9 % (18.3-44.2); Mean Corpuscular HGB Conc 33.2 g/dl (32-36); Mean Corpuscular Hemoglobin 32.2 pg (26-34); Mean Corpuscular Volume 97.1 fl (80-100); Mean Platelet Volume 10.6 fl (7.4-10.4); Monocytes Absolute Auto 1.9 K/mm3 (0.1-0.6); Monocytes Percent Auto 9.5 % (2.6-8.5); Neutrophils Absolute Auto 15.7 K/mm3 (1.3-6.7); Nucleated Red Blood Cells Perc 0.1 % (0.0-0.2); Platelet Count Result 218 k/mm3 (150-375); Red Blood Count 3.07 M/mm3 (4.2-5.4); Red Cell Distribution Width 15.3 % (11.5-14.5); White Blood Count 19.4 K/mm3 (4.5-10.0)
--- NOTE | 2025-01-23 07:11 | ECG_ITS ---
Test Date: 2025-01-23 07:21:37 Measurements Intervals [place] Rate: 119 P: 33 MD: 151 QRS: -1 QRSD: 98 T: -6 QT: 339 QTc: 477 Interpretive Statements SINUS TACHYCARDIA LOW QRS VOLTAGE IN PRECORDIAL LEADS INCOMPLETE RIGHT BUNDLE BRANCH BLOCK BORDERLINE T WAVE ABNORMALITY- INFERIOR LEADS ABNORMAL ECG Compared to ECG 01/18/2025 13:13:37 Low QRS voltage now present Electronically Signed On 01-23-2025 07:33:54 CDT by Bert Ramirez D.O.
[2025-01-23 07:13] LABS: Alanine Aminotransferase 25 U/L (6-35); Albumin Level 2.7 g/dL (3.5-5.1); Alkaline Phosphatase 96 U/L (38-126); Anion Gap 6 mmol/L (4-12); Aspartate Amino Transferase 47 U/L (14-36); Bilirubin,Total 0.5 mg/dL (0.2-1.3); Blood Urea Nitrogen 21 mg/dL (7-17); Calcium 8.2 mg/dL (8.4-10.2); Carbon Dioxide 31 mmol/L (22-30); Chloride 108 mmol/L (98-107); Estimated CRCL calculation 105 ml/min; Estimated Glomerular Filt Rate > 60; Glucose 180 mg/dL (65-110); Magnesium 2.2 mg/dL (1.6-2.3); Phosphorus 2.9 mg/dL (2.5-4.5); Potassium 3.3 mmol/L (3.4-5.0); Sodium 145 mmol/L (137-145)
[2025-01-23 07:28] LABS: Platelet Estimate Adequate (Adequate); Schistocytes None Seen; Toxic Granulation Present
[2025-01-23 07:54] LABS: Glucose Point of Care 199 mg/dl (65-105)
[2025-01-23] MEDS: PANTOPRAZOLE SODIUM IV 40 MG VIAL IV PUSH (08:31)
[2025-01-23] MEDS: ENOXAPARIN 40 MG/0.4 ML SYRINGE SUB-Q (08:32)
[2025-01-23] MEDS: MINERAL OIL/WHITE PETROLATUM OINTMENT 1 APPLIC EACH EYE ×2 (08:32→20:40)
[2025-01-23] MEDS: IPRATROPIUM BR 0.02% INH SOLN 0.5 MG/2.5 ML VIAL INHALATION ×3 (09:38→20:04)
[2025-01-23] MEDS: LEVALBUTEROL NEB 1.25 MG/3 ML 0.63 MG INHALATION ×3 (09:39→20:03)
[2025-01-23] MEDS: METOPROLOL TARTRATE 25 MG TABLET PO ×2 (09:55→20:40)
[2025-01-23] MEDS: KCL 40 MEQ/WATER 100 ML 100 ML 25 ML IVPB (09:56)
[2025-01-23] MEDS: methylPREDNISolone SOD SUCC 125 MG VIAL IV PUSH (09:56)
[2025-01-23] MEDS: VANCOMYCIN 1,500 MG/NS 500 ML 1,500 MG/500 ML BAG 250 MG IVPB (09:59)
--- NOTE | 2025-01-23 10:01 | P.PNNP_ITS ---
Progress Note: A&P Assessment and Plan (1) Hypernatremia: Code(s): E87.0 - Hyperosmolality and hypernatremia Status: Acute Assessment and Plan: * better if not normalized by labs today * as noted by trend of sodium since 01/20: * 146 (01/20) --> 149 (01/21) --> 150 (01/22) * given presentation on admission, suspect due to aggressive IVF resuscitation (due to hypotension) in conjunction with insensible free water losses given her acute infection and high fevers * continue free water flushes and titrate as needed * s/p trial of D5W IVFs for a total of 1 Liter * follow repeat sodium levels (2) Acute hypoxic respiratory failure: Code(s): J96.01 - Acute respiratory failure with hypoxia Status: Acute Assessment and Plan: * intubated in ER due to airway protection and hypoixia * imaging noted: * CXR - Bilateral basal pneumonia. Pulmonary edema cannot be excluded although less likely * CTof chest - no pulmonary embolism and bilateral pneumonia in the lower lobes; pneumonia in the lingula; minimal changes of pneumonia in the right middle lobe.; pneumonia in the right upper lobe posteriorly * positive of influenza A * continue bronchodilators and steroids * follow culture data * on antibiotics (3) Septic shock: Code(s): A41.9 - Sepsis, unspecified organism; R65.21 - Severe sepsis with septic shock Status: Acute Assessment and Plan: * resolving * initially on levophed and then phenylephrine * currently off all vasopressor therapy * elevated CRP and procalcitonin noted * presumably secondary to influenza A and pneumonia * blood cultures with MSSA * on antibiotics (4) PNA (pneumonia): Code(s): J18.9 - Pneumonia, unspecified organism Status: Acute Assessment and Plan: * as noted by admission imaging * on ventilator support (see #2) * on antibiotics (5) Flu: Code(s): J11.1 - Influenza due to unidentified influenza virus with other respiratory manifestations Status: Acute Assessment and Plan: * positive testing in ER for influenza A * completed course of Tamiflu (6) DKA (diabetic ketoacidosis): Code(s): E11.10 - Type 2 diabetes mellitus with ketoacidosis without coma Status: Acute Assessment and Plan: * noted presentation with elevated beta hydroxybutyrate, anion gap metabolic acidosis, UA showed ketones, glucose * suspect euglycemic diabetic ketoacidosis as patient was still taking Jardiance and metformin * off insulin gtt and transitioned to SSI + Lantus * glycemic control per intensivisit/hospitalist Will continue to follow. L Subjective Date/time seen: 01/23/25 10:01 Interval history: Follow-up for acute hypernatremia. Sodium level appears to be doing better with current interventions/therapy to date (s/p liter of D5W IVFs and increased free water flushes); remains intubated and on mechanical ventilation; febrile yesterday with a Tmax of 101.8?; following simple commands and nods to yes/no questions; hemodynamically stable without the need for vasopressor therapy. Exam 2 Narrative: General: WD/WN middle aged female intubated and on mechanical ventilation Heart: tachcardic, normal S1 and S2; no rub Lungs: coarse breath sounds; bibasilar crackles and scattered wheezes Abdomen: soft, nontender, nondistended, decreased bowel sounds Extremities: no cyanosis or clubbing; no edema Skin: warm and dry Objective Data Vital Signs Vital Signs: Vital Signs Temp Pulse Resp BP Pulse Ox O2 Del Method FiO2 01/23/25 10:00 118 H 21 H 117/66 97 01/23/25 09:55 122 H 01/23/25 09:43 120 H 25 H 01/23/25 08:10 116 H 94 Mechanical Ventilation 45 01/23/25 08:00 45 01/23/25 08:00 124 H 25 H 97 Mechanical Ventilation 45 01/23/25 08:00 98.6 F 116 H 26 H 120/71 94 01/23/25 06:38 100.5 F H 01/23/25 06:00 100.5 F H 131 H 23 H 126/77 91 01/23/25 06:00 131 H 01/23/25 05:51 137 H 27 H 01/23/25 04:55 129 H 95 Mechanical Ventilation 45 01/23/25 04:15 136 H 27 H 01/23/25 04:00 91 Mechanical Ventilation 45 01/23/25 04:00 143 H 01/23/25 04:00 45 01/23/25 04:00 101.3 F H 141 H 27 H 151/79 H 91 01/23/25 02:02 122 H 93 Mechanical Ventilation 45 01/23/25 02:00 125 H 20 125/73 93 01/23/25 02:00 125 H 01/23/25 00:00 124 H 01/23/25 00:00 99.8 F H 123 H 20 121/71 94 01/23/25 00:00 93 Mechanical Ventilation 45 01/23/25 00:00 45 01/22/25 22:55 124 H 93 Mechanical Ventilation 45 01/22/25 22:00 126 H 01/22/25 22:00 126 H 21 H 121/70 93 01/22/25 20:00 126 H 01/22/25 20:00 93 Mechanical Ventilation 45 01/22/25 20:00 101.3 F H 127 H 22 H 124/71 93 01/22/25 20:00 45 01/22/25 20:00 124 H 93 Mechanical Ventilation 45 01/22/25 18:38 101.8 F H 01/22/25 18:00 126 H 01/22/25 18:00 101.8 F H 127 H 21 H 121/68 92 01/22/25 17:12 101.5 F H 01/22/25 17:07 136 H 95 Mechanical Ventilation 45 01/22/25 16:00 101.5 F H 126 H 20 112/65 92 01/22/25 16:00 45 01/22/25 16:00 125 H 01/22/25 16:00 125 H 20 92 Mechanical Ventilation 45 01/22/25 14:00 125 H 01/22/25 14:00 128 H 20 116/68 92 01/22/25 13:56 122 H 93 Mechanical Ventilation 45 01/22/25 13:15 99.5 F 01/22/25 12:15 101.1 F H Intake/Output Intake/Output: Intake & Output 01/20/25 01/21/25 01/22/25 01/23/25 23:59 23:59 23:59 23:59 Intake Total 2289.0 2468.967 2453 1641.1 Output Total 1950 2350 2650 1700 Balance 339.0 118.967 -197 -58.9 Meds/Results Medications: Active Medications Generic Name Dose Route Start Last Admin Trade Name Freq PRN Reason Stop Dose Admin Acetaminophen 650 mg 01/18/25 20:28 01/23/25 12:06 Acetaminophen Elixir 325 Mg/10.15 Ml Udc FEED TUBE 650 mg Q4H PRN Administration Mild Pain (1-3) or Fever Atorvastatin Calcium 20 mg 01/19/25 18:00 01/22/25 17:12 Atorvastatin 20 Mg Tablet PO 20 mg QPM SESAR Administration Dextrose 12.5 gm 01/18/25 23:15 Dextrose 50% 25 Gm/50 Ml Syringe IV PUSH PRN PRN Hypoglycemia Protocol Enoxaparin Sodium 40 mg 01/20/25 09:00 01/23/25 08:32 Enoxaparin 40 Mg/0.4 Ml Syringe SUB-Q 40 mg DAILY SESAR Administration Estradiol 1 mg 01/19/25 09:00 Estradiol 1 Mg Tablet PO DAILY SESAR Glucagon 1 mg 01/18/25 23:15 Glucagon For Inj 1 Mg Vial IM PRN PRN Hypoglycemia Protocol Glucose 15 gm 01/18/25 23:15 Glucose Oral Gel 15 Gm Of Glucse In 37.5 Gm Tube PO PRN PRN Hypoglycemia Protocol Doxycycline Hyclate 100 mg in 100 mls @ 100 mls/hr 01/18/25 23:00 01/22/25 23:00 Vibramycin 100 Mg/Ns 100 Ml IVPB 01/23/25 22:59 Infused Q12H SESAR Infusion Dextrose 1,000 mls @ 100 mls/hr 01/18/25 23:15 Dextrose 5% 1,000 Ml IVPB PRN PRN Hypoglycemia Protocol Dexmedetomidine HCl 400 mcg in 100 mls @ 6.36 mls/hr 01/23/25 04:05 01/23/25 05:51 Precedex 400 Mcg/100 Ml IV CONT 0.4 mcg/kg/hr .[id number] SESAR 6.36 mls/hr Titration Protocol 0.4 MCG/KG/HR Potassium Chloride 100 mls @ 25 mls/hr 01/23/25 08:15 01/23/25 09:56 Kcl 40 Meq/Water 100 Ml IVPB 01/23/25 12:14 25 mls/hr ONCE ONE Administration Meropenem 1 gm in 100 mls @ 200 mls/hr 01/23/25 14:00 IVPB Q8HR SESAR Vancomycin HCl 1,250 mg in 250 mls @ 166.667 mls/hr 01/23/25 22:00 Vancomycin 1,250 Mg/Ns 250 Ml IVPB Q12H SESAR Insulin Aspart 2 - 5 units 01/19/25 01:00 01/23/25 12:06 Insulin Aspart (*Bkc) 100 Units/Ml SUB-Q Not Given Q4HR [facility] Protocol Insulin Glargine 16 units 01/21/25 21:00 01/22/25 21:50 Insulin Glargine (*Bkc) 100 Units/Ml SUB-Q 16 units HS [facility] Administration Ipratropium [place] 0.5 mg 01/23/25 09:35 01/23/25 09:38 Ipratropium Br 0.02% Inh Soln 0.5 Mg/2.5 Ml Vial INHALATION 0.5 mg Q6HRT [facility] Administration Levalbuterol HCl 0.63 mg 01/23/25 09:35 01/23/25 09:39 Levalbuterol Neb 1.25 Mg/3 Ml INHALATION 0.63 mg Q6HRT [facility] Administration Methylprednisolone Sodium Succinate 40 mg 01/23/25 18:00 Methylprednisolone Sod Succ 125 Mg Vial IV PUSH 01/24/25 12:01 Q6HR [facility] Metoprolol Tartrate 25 mg 01/19/25 09:00 01/23/25 09:55 Metoprolol Tartrate 25 Mg Tablet PO 25 mg Q12HR [facility] Administration Multi-Ingred Cream/Lotion/Oil/Oint 1 applic 01/19/25 09:00 01/23/25 08:32 Mineral Oil/White Petrolatum Ointment EACH EYE 1 applic Q12HR [facility] Administration Ondansetron HCl 4 mg 01/19/25 01:20 Ondansetron Inj 4 Mg/2 Ml Vial IV PUSH Q4H PRN Nausea And Vomiting Pantoprazole Sodium 40 mg 01/20/25 09:00 01/23/25 08:31 Pantoprazole Sodium Iv 40 Mg Vial IV PUSH 40 mg QAM SESAR Administration Sodium Chloride 10 ml 01/19/25 06:00 01/23/25 05:59 Central Line Flush IV PUSH 10 ml Q8HR [facility] Administration Sodium Chloride 20 ml 01/19/25 04:13 Central Line Flush IV PUSH PRN PRN after blood draws Spironolactone 100 mg 01/19/25 09:00 Spironolactone 50 Mg Tablet PO Q12HR [facility] Radiology Results: ITS Impressions Chest CTA 01/18/25 15:25 IMPRESSION: 1. No pulmonary embolism. 2. Bilateral pneumonia in the lower lobes. Pneumonia in the lingula. Minimal changes of pneumonia in the right middle lobe. Pneumonia in the right upper lobe posteriorly. Follow-up to resolution is advised. Head CT 01/22/25 10:18 Impression: No significant abnormality seen. Chest X-Ray 01/23/25 06:00 Impression: 1: Stable pulmonary edema. 2: NG tube tip near the gastroesophageal junction. Recommend advancement. Labs Labs: Laboratory Tests 01/23/25 06:53 01/23/25 06:53 Calcium 8.2 L Phosphorus 2.9 Magnesium 2.2 Total Bilirubin 0.5 AST 47 H ALT 25 Alkaline Phosphatase 96 Total Protein 6.0 L Albumin 2.7 L Microbiology 01/19/25 10:52 Sputum Sputum Culture - Final Staphylococcus aureus
[2025-01-23] MEDS: DOXYCYCLINE 100 MG/NS 100 ML 100 MG/100 ML BAG IVPB (12:09)
[2025-01-23 12:17] LABS: Glucose Point of Care 193 mg/dl (65-105)
--- NOTE | 2025-01-23 12:41 | WPDINTPN ---
Progress Note: A&P Assessment and Plan (1) Septic shock: Code(s): A41.9 - Sepsis, unspecified organism; R65.21 - Severe sepsis with septic shock Status: Acute Assessment and Plan: Patient presented with bilateral lower lobe infiltrates, pneumonia, hypotension overnight requiring central line placement on 01/19, and Levophed -continue Levophed to maintain SBP> 90 mmHg, as daughter stateThat patient has normal SBP is in the 80s to 90s -01/19: switch Levophed to phenylephrine as patient is tachycardic, will wean Levophed to off -elevated CRP and procalcitonin on admission -remains febrile, continue Tylenol -this could be related to influenza A and pneumonia -01/20: currently off all pressors -01/18: Blood cultures growing MSSA -01/19: Sputum cultures obtained and pending -status post IV fluids and albumin with improvement in heart -lactic acid remains normal -01/20: Repeat blood cultures negative so far -On doxycycline (01/18) -01/21: started on Cefazolin and DC cefepime, vancomycin (01/21) -patient has wheeze -01/23: Patient again febrile with a T-max of 101.3?, thick yellow colored secretions from the ET tube, white blood cell count trending up. FiO2 requirements going up, Will repeat blood cultures, -01/23: DC cefazolin. Start vancomycin and meropenem (01/23) 1625: Echocardiogram Summary 1. Left ventricular chamber dimension is normal. 2. Left ventricular systolic function is normal, estimated at 60-65. 3. The left ventricular diastolic function is grade I diastolic dysfunction. 4. Right ventricular chamber dimension is mildly enlarged. 5. Right ventricular systolic function is normal. 6. Right atrial chamber dimension is mildly enlarged. 7. There is mild to moderate tricuspid valve regurgitation. (2) Acute hypoxic respiratory failure: Code(s): J96.01 - Acute respiratory failure with hypoxia Status: Acute Assessment and Plan: 01/18: Patient presented the ED with shortness of breath, weakness, diabetic ketoacidosis, pneumonia 01/18: Intubated in the ED for airway protection and hypoxia -remains on CMV mode of ventilation, peep of 5, 45% FiO2, titrate FiO2 to maintain O2 sat > 92% -chest x-ray and ABGs reviewed, ventilator adjusted - CTA chest on admission showed bilateral lower lobe pneumonia - OFF sedation since 01/21 am -positive for influenza A, On Tamiflu -bilateral diffuse wheezing, started patient on bronchodilators and Solu-Medrol 01/15: CTA chest IMPRESSION: 1. No pulmonary embolism. 2. Bilateral pneumonia in the lower lobes. Pneumonia in the lingula. Minimal changes of pneumonia in the right middle lobe. Pneumonia in the right upper lobe posteriorly. Follow-up to resolution is advised. (3) PNA (pneumonia): Code(s): J18.9 - Pneumonia, unspecified organism Status: Acute Assessment and Plan: Bilateral lower lobe pneumonia, continue antibiotics as above -currently intubated on mechanical ventilation (4) DKA (diabetic ketoacidosis): Code(s): E11.10 - Type 2 diabetes mellitus with ketoacidosis without coma Status: Acute Assessment and Plan: Patient presented with elevated beta hydroxybutyrate, anion gap metabolic acidosis, UA showed ketones, glucose -likely euglycemic diabetic ketoacidosis as patient was still taking Jardiance and metformin -this given 3 L IV fluids since admission, started on insulin infusion per DKA protocol -overnight patient was transition to long-acting insulin Lantus, and sliding scale insulin with Accu-Chek -continue to monitor -blood sugars in stable, continue Accu-Cheks, sliding scale insulin and Lantus (5) Flu: Code(s): J11.1 - Influenza due to unidentified influenza virus with other respiratory manifestations Status: Acute Assessment and Plan: Patient was tested positive for influenza A -status post Tamiflu (6) Chronic low blood pressure: Code(s): I95.89 - Other hypotension Status: Acute Assessment and Plan: Patient has chronic low blood pressures, according the daughter systolic blood pressures range in the 80s to 90s -blood pressures remain stable off pressors (7) Sinus tachycardia: Code(s): R00.0 - Tachycardia, unspecified Status: Acute Assessment and Plan: Has a history of chronic sinus tachycardia for which she is on metoprolol at home, -patient's heart rate is in the 100-110 which is her baseline -since she is off pressors will start her home dose metoprolol (8) PCOS (polycystic ovarian syndrome): Code(s): E28.2 - Polycystic ovarian syndrome Status: Acute Assessment and Plan: On spironolactone which will continue to hold for now due to patient being on pressors, hypovolemic hold estradiol (9) Hyperlipidemia: Code(s): E78.5 - Hyperlipidemia, unspecified Status: Acute Assessment and Plan: continue Atorvastatin (10) Electrolyte imbalance: Code(s): E87.8 - Other disorders of electrolyte and fluid balance, not elsewhere classified Status: Acute Assessment and Plan: Hypernatremia: Resolved, status post D5 water for 1000 mL per Nephrology Replace potassium (11) Encephalopathy: Code(s): G93.40 - Encephalopathy, unspecified Status: Acute Assessment and Plan: off sedation since 01/21 am, pt not only opens eyes and intermittent 01/22: CT scan of the brain: No acute intracranial abnormalities 01/23: Patient more awake, opens her eyes, follows simple commands in all extremities Plan DVT prophylaxis: Lovenox Stress ulcer prophylaxis: Protonix Nutrition: Tolerating tube feeds Code Status: Full code Critical Care Time Spent: 32 minutes Discussed with daughters at bedside and updated her with patient's condition and plan of care. I answered all questions Due to a high probability of clinically significant, life threatening deterioration, the patient required my highest level of preparedness to intervene emergently and I personally spent this critical care time directly and personally managing the patient. This critical care time included obtaining a history; examining the patient; pulse oximetry; ordering and review of studies; arranging urgent treatment with development of a management plan; evaluation of patient's response to treatment; frequent reassessment; and discussions with other providers. It was exclusive of separately billable procedures and treating other patients and teaching time. Please see Assessment and Plan section and the rest of the note for further information on patient assessment and treatment This dictation may have been done utilizing a voice recognition system. Attempts have been made to correct errors. However, there may be uncorrected grammatical, spelling, and recognitions errors present. Subjective Date/time seen: 01/23/25 12:41 Interval history: Reason for consult: Septic shock, acute respiratory failure, pneumonia, euglycemic diabetic ketoacidosis, 01/23/2025: Patient seen and examined the ICU, remains intubated on CMV mode of ventilation, peep of 5, 35% FiO2. Was started on Precedex overnight but is off this morning. Patient opens her eyes, follows simple commands in all extremities and nods to questions. Patient off all pressors. Received D5 water for a total 1000 mL for hypernatremia, sodium this morning is 145. Urine output has been adequate, tolerating tube feeds, lisinopril with a T-max of 101.3?. Increased secretions which is thick and yellow in color from the ET tube Review of Systems Review of Systems: ROS unobtainable: Yes unobtainable due to endotracheal tube and unobtainable due to medical condition Exam Narrative: General: Intubated and sedated, in no acute distress HEENT:? Pupils small and reactive bilaterally, sclera is clear, ETT in place Neck:? Supple, right IJ central line in place Respiratory:? Coarse breath sounds bilaterally, decreased at bases, rales bilaterally at bases, bilateral diffuse wheeze Cardiac:? Sinus tachycardia, S1-S2 was normal, no murmurs Abdomen:? Soft, nontender, nondistended, hypoactive bowel sounds Extremities:? No edema, palpable pedal pulses Neuro:? Intubated, Off all sedation since 01/21 am, opens her eyes, follows simple commands in all extremities nods to questions Skin:? No lesions noted Psych:? Unable to assess at this time Objective Data Vital Signs Vital Signs: Vital Signs - 24 hr 01/22/25 13:15 01/22/25 13:56 01/22/25 14:00 Temperature 99.5 F Pulse Rate 122 H 128 H Respiratory Rate 20 Blood Pressure 116/68 Pulse Oximetry 93 92 Oxygen Delivery Mechanical Ventilation Fraction of Inspired Oxygen 45 01/22/25 14:00 01/22/25 16:00 01/22/25 16:00 Temperature Pulse Rate 125 H 125 H 125 H Respiratory Rate 20 Blood Pressure Pulse Oximetry 92 Oxygen Delivery Mechanical Ventilation Fraction of Inspired Oxygen 45 01/22/25 16:00 01/22/25 16:00 01/22/25 17:07 Temperature 101.5 F H Pulse Rate 126 H 136 H Respiratory Rate 20 Blood Pressure 112/65 Pulse Oximetry 92 95 Oxygen Delivery Mechanical Ventilation Fraction of Inspired Oxygen 45 45 01/22/25 17:12 01/22/25 18:00 01/22/25 18:00 Temperature 101.5 F H 101.8 F H Pulse Rate 127 H 126 H Respiratory Rate 21 H Blood Pressure 121/68 Pulse Oximetry 92 Oxygen Delivery Fraction of Inspired Oxygen 01/22/25 18:38 01/22/25 20:00 01/22/25 20:00 Temperature 101.8 F H Pulse Rate 124 H Respiratory Rate Blood Pressure Pulse Oximetry 93 Oxygen Delivery Mechanical Ventilation Fraction of Inspired Oxygen 45 45 01/22/25 20:00 01/22/25 20:00 01/22/25 20:00 Temperature 101.3 F H Pulse Rate 127 H 126 H Respiratory Rate 22 H Blood Pressure 124/71 Pulse Oximetry 93 93 Oxygen Delivery Mechanical Ventilation Fraction of Inspired Oxygen 45 01/22/25 22:00 01/22/25 22:00 01/22/25 22:55 Temperature Pulse Rate 126 H 126 H 124 H Respiratory Rate 21 H Blood Pressure 121/70 Pulse Oximetry 93 93 Oxygen Delivery Mechanical Ventilation Fraction of Inspired Oxygen 45 01/23/25 00:00 01/23/25 00:00 01/23/25 00:00 Temperature 99.8 F H Pulse Rate 123 H Respiratory Rate 20 Blood Pressure 121/71 Pulse Oximetry 93 94 Oxygen Delivery Mechanical Ventilation Fraction of Inspired Oxygen 45 45 01/23/25 00:00 01/23/25 02:00 01/23/25 02:00 Temperature Pulse Rate 124 H 125 H 125 H Respiratory Rate 20 Blood Pressure 125/73 Pulse Oximetry 93 Oxygen Delivery Fraction of Inspired Oxygen 01/23/25 02:02 01/23/25 04:00 01/23/25 04:00 Temperature 101.3 F H Pulse Rate 122 H 141 H Respiratory Rate 27 H Blood Pressure 151/79 H Pulse Oximetry 93 91 Oxygen Delivery Mechanical Ventilation Fraction of Inspired Oxygen 45 45 01/23/25 04:00 01/23/25 04:00 01/23/25 04:15 Temperature Pulse Rate 143 H 136 H Respiratory Rate 27 H Blood Pressure Pulse Oximetry 91 Oxygen Delivery Mechanical Ventilation Fraction of Inspired Oxygen 45 01/23/25 04:55 01/23/25 05:51 01/23/25 06:00 Temperature Pulse Rate 129 H 137 H 131 H Respiratory Rate 27 H Blood Pressure Pulse Oximetry 95 Oxygen Delivery Mechanical Ventilation Fraction of Inspired Oxygen 45 01/23/25 06:00 01/23/25 06:38 01/23/25 08:00 Temperature 100.5 F H 100.5 F H 98.6 F Pulse Rate 131 H 116 H Respiratory Rate 23 H 26 H Blood Pressure 126/77 120/71 Pulse Oximetry 91 94 Oxygen Delivery Fraction of Inspired Oxygen 01/23/25 08:00 01/23/25 08:00 01/23/25 08:10 Temperature Pulse Rate 124 H 116 H Respiratory Rate 25 H Blood Pressure Pulse Oximetry 97 94 Oxygen Delivery Mechanical Ventilation Mechanical Ventilation Fraction of Inspired Oxygen 45 45 45 01/23/25 09:43 01/23/25 09:55 01/23/25 10:00 Temperature Pulse Rate 120 H 122 H 118 H Respiratory Rate 25 H 21 H Blood Pressure 117/66 Pulse Oximetry 97 Oxygen Delivery Fraction of Inspired Oxygen 01/23/25 10:04 01/23/25 12:00 Temperature 98.6 F Pulse Rate 124 H 117 H Respiratory Rate 25 H 22 H Blood Pressure 116/73 Pulse Oximetry 97 Oxygen Delivery Fraction of Inspired Oxygen Intake/Output Intake/Output: Intake & Output 01/20/25 01/21/25 01/22/25 01/23/25 23:59 23:59 23:59 23:59 Intake Total 2289.0 2468.967 2453 1641.1 Output Total 1950 2350 2650 1700 Balance 339.0 118.967 -197 -58.9 Meds/Results Medications: Active Medications Generic Name Dose Route Start Last Admin Trade Name Freq PRN Reason Stop Dose Admin Acetaminophen 650 mg 01/18/25 20:28 01/23/25 12:06 Acetaminophen Elixir 325 Mg/10.15 Ml Udc FEED TUBE 650 mg Q4H PRN Administration Mild Pain (1-3) or Fever Atorvastatin Calcium 20 mg 01/19/25 18:00 01/22/25 17:12 Atorvastatin 20 Mg Tablet PO 20 mg QPM SESAR Administration Dextrose 12.5 gm 01/18/25 23:15 Dextrose 50% 25 Gm/50 Ml Syringe IV PUSH PRN PRN Hypoglycemia Protocol Enoxaparin Sodium 40 mg 01/20/25 09:00 01/23/25 08:32 Enoxaparin 40 Mg/0.4 Ml Syringe SUB-Q 40 mg DAILY SESAR Administration Estradiol 1 mg 01/19/25 09:00 Estradiol 1 Mg Tablet PO DAILY SESAR Glucagon 1 mg 01/18/25 23:15 Glucagon For Inj 1 Mg Vial IM PRN PRN Hypoglycemia Protocol Glucose 15 gm 01/18/25 23:15 Glucose Oral Gel 15 Gm Of Glucse In 37.5 Gm Tube PO PRN PRN Hypoglycemia Protocol Doxycycline Hyclate 100 mg in 100 mls @ 100 mls/hr 01/18/25 23:00 01/23/25 12:09 Vibramycin 100 Mg/Ns 100 Ml IVPB 01/23/25 22:59 100 mls/hr Q12H SESAR Administration Dextrose 1,000 mls @ 100 mls/hr 01/18/25 23:15 Dextrose 5% 1,000 Ml IVPB PRN PRN Hypoglycemia Protocol Dexmedetomidine HCl 400 mcg in 100 mls @ 6.36 mls/hr 01/23/25 04:05 01/23/25 05:51 Precedex 400 Mcg/100 Ml IV CONT 0.4 mcg/kg/hr .[id number] SESAR 6.36 mls/hr Titration Protocol 0.4 MCG/KG/HR Meropenem 1 gm in 100 mls @ 200 mls/hr 01/23/25 14:00 IVPB Q8HR SESAR Vancomycin HCl 1,250 mg in 250 mls @ 166.667 mls/hr 01/23/25 22:00 Vancomycin 1,250 Mg/Ns 250 Ml IVPB Q12H SESAR Insulin Aspart 2 - 5 units 01/19/25 01:00 01/23/25 12:06 Insulin Aspart (*Bkc) 100 Units/Ml SUB-Q Not Given Q4HR [facility] Protocol Insulin Glargine 16 units 01/21/25 21:00 01/22/25 21:50 Insulin Glargine (*Bkc) 100 Units/Ml SUB-Q 16 units HS SESAR Administration Ipratropium [place] 0.5 mg 01/23/25 09:35 01/23/25 09:38 Ipratropium Br 0.02% Inh Soln 0.5 Mg/2.5 Ml Vial INHALATION 0.5 mg Q6HRT SESAR Administration Levalbuterol HCl 0.63 mg 01/23/25 09:35 01/23/25 09:39 Levalbuterol Neb 1.25 Mg/3 Ml INHALATION 0.63 mg Q6HRT SESAR Administration Methylprednisolone Sodium Succinate 40 mg 01/23/25 18:00 Methylprednisolone Sod Succ 125 Mg Vial IV PUSH 01/24/25 12:01 Q6HR [facility] Metoprolol Tartrate 25 mg 01/19/25 09:00 01/23/25 09:55 Metoprolol Tartrate 25 Mg Tablet PO 25 mg Q12HR SESAR Administration Multi-Ingred Cream/Lotion/Oil/Oint 1 applic 01/19/25 09:00 01/23/25 08:32 Mineral Oil/White Petrolatum Ointment EACH EYE 1 applic Q12HR SESAR Administration Ondansetron HCl 4 mg 01/19/25 01:20 Ondansetron Inj 4 Mg/2 Ml Vial IV PUSH Q4H PRN Nausea And Vomiting Pantoprazole Sodium 40 mg 01/20/25 09:00 01/23/25 08:31 Pantoprazole Sodium Iv 40 Mg Vial IV PUSH 40 mg QAM SESAR Administration Sodium Chloride 10 ml 01/19/25 06:00 01/23/25 05:59 Central Line Flush IV PUSH 10 ml Q8HR ESSAR Administration Sodium Chloride 20 ml 01/19/25 04:13 Central Line Flush IV PUSH PRN PRN after blood draws Spironolactone 100 mg 01/19/25 09:00 Spironolactone 50 Mg Tablet PO Q12HR SESAR Radiology Results: ITS Impressions Chest CTA 01/18/25 15:25 IMPRESSION: 1. No pulmonary embolism. 2. Bilateral pneumonia in the lower lobes. Pneumonia in the lingula. Minimal changes of pneumonia in the right middle lobe. Pneumonia in the right upper lobe posteriorly. Follow-up to resolution is advised. Head CT 01/22/25 10:18 Impression: No significant abnormality seen. Chest X-Ray 01/23/25 06:00 Impression: 1: Stable pulmonary edema. 2: NG tube tip near the gastroesophageal junction. Recommend advancement. Labs Labs: Laboratory Results - last 24 hr 01/22/25 01/22/25 01/22/25 13:20 16:08 21:48 WBC RBC Hgb Hct MCV MCH MCHC RDW Plt Count MPV Immature Gran % (Auto) Neut % (Auto) Lymph % (Auto) [place] % (Auto) Eos % (Auto) Baso % (Auto) Lymph # (Auto) [place] # (Auto) Eos # (Auto) Baso # (Auto) Abs Immat Gran (auto) Absolute Neuts (auto) Absolute Nucleated RBC Band Neutrophils % Nucleated RBC % Toxic Granulation Platelet Estimate Schistocytes Puncture Site ABG pH ABG pCO2 ABG pO2 ABG PO2/FiO2 Ratio ABG HCO3 ABG O2 Saturation ABG O2 Content ABG Base Excess A-a Gradient Oxyhemoglobin Carboxyhemoglobin Methemoglobin Reduced Hemoglobin Total Hemoglobin O2 Delivery Device O2 Liters/Min Minute Volume Vent Rate Vent Mode FiO2 Tidal Volume PEEP Peak Inspir Pressure Pressure Support Sodium Potassium Chloride Carbon Dioxide Anion Gap BUN Creatinine Estim Creat Clear Calc Estimated GFR Glucose POC Capillary Glucose 185 H 158 H 173 H Calcium Phosphorus Magnesium Total Bilirubin AST ALT Alkaline Phosphatase Total Protein Albumin 01/23/25 01/23/25 01/23/25 01:06 04:39 05:44 WBC RBC Hgb Hct MCV MCH MCHC RDW Plt Count MPV Immature Gran % (Auto) Neut % (Auto) Lymph % (Auto) [place] % (Auto) Eos % (Auto) Baso % (Auto) Lymph # (Auto) [place] # (Auto) Eos # (Auto) Baso # (Auto) Abs Immat Gran (auto) Absolute Neuts (auto) Absolute Nucleated RBC Band Neutrophils % Nucleated RBC % Toxic Granulation Platelet Estimate Schistocytes Puncture Site Right radial ABG pH 7.477 H ABG pCO2 37.5 ABG pO2 74.3 L ABG PO2/FiO2 Ratio 1.65 ABG HCO3 27.1 H ABG O2 Saturation 95.8 ABG O2 Content 14.4 L ABG Base Excess 3.5 A-a Gradient 264.3 Oxyhemoglobin 94.6 Carboxyhemoglobin 0.8 Methemoglobin 0.3 Reduced Hemoglobin 4.3 Total Hemoglobin 10.8 L O2 Delivery Device Ventilator O2 Liters/Min Not Reportable Minute Volume Not Reportable Vent Rate 20 Vent Mode Cmv FiO2 45 Tidal Volume 330 PEEP 5 Peak Inspir Pressure Not Reportable Pressure Support Not Reportable Sodium Potassium Chloride Carbon Dioxide Anion Gap BUN Creatinine Estim Creat Clear Calc Estimated GFR Glucose POC Capillary Glucose 193 H 188 H Calcium Phosphorus Magnesium Total Bilirubin AST ALT Alkaline Phosphatase Total Protein Albumin 01/23/25 01/23/25 01/23/25 06:53 07:24 12:04 WBC 19.4 H RBC 3.07 L Hgb 9.9 L Hct 29.8 L MCV 97.1 MCH 32.2 MCHC 33.2 RDW 15.3 H Plt Count 218 MPV 10.6 H Immature Gran % (Auto) 2.8 H Neut % (Auto) 81.0 H Lymph % (Auto) 5.9 L [place] % (Auto) 9.5 H Eos % (Auto) 0.5 Baso % (Auto) 0.3 Lymph # (Auto) 1.14 [place] # (Auto) 1.9 H Eos # (Auto) 0.1 Baso # (Auto) 0.1 Abs Immat Gran (auto) 0.55 H Absolute Neuts (auto) 15.7 H Absolute Nucleated RBC 0.020 H Band Neutrophils % Not Reportable Nucleated RBC % 0.1 Toxic Granulation Present Platelet Estimate Adequate Schistocytes None seen Puncture Site ABG pH ABG pCO2 ABG pO2 ABG PO2/FiO2 Ratio ABG HCO3 ABG O2 Saturation ABG O2 Content ABG Base Excess A-a Gradient Oxyhemoglobin Carboxyhemoglobin Methemoglobin Reduced Hemoglobin Total Hemoglobin O2 Delivery Device O2 Liters/Min Minute Volume Vent Rate Vent Mode FiO2 Tidal Volume PEEP Peak Inspir Pressure Pressure Support Sodium 145 Potassium 3.3 L Chloride 108 H Carbon Dioxide 31 H Anion Gap 6 BUN 21 H Creatinine 0.44 L Estim Creat Clear Calc 105 Estimated GFR > 60 Glucose 180 H POC Capillary Glucose 199 H 193 H Calcium 8.2 L Phosphorus 2.9 Magnesium 2.2 Total Bilirubin 0.5 AST 47 H ALT 25 Alkaline Phosphatase 96 Total Protein 6.0 L Albumin 2.7 L Quality VTE Prophylaxis VTE prophylaxis: pharmacologic ordered
[2025-01-23] MEDS: MEROPENEM 1 GM/NS 100 ML 1 GM/100 ML BAG IVPB ×2 (14:52→20:47)
[2025-01-23 16:58] LABS: Glucose Point of Care 233 mg/dl (65-105)
[2025-01-23] MEDS: methylPREDNISolone SOD SUCC 125 MG VIAL 40 MG IV PUSH (17:24)
[2025-01-23] MEDS: INSULIN ASPART (*BKC) 100 UNITS/ML SUB-Q ×2 (17:24→20:39)
[2025-01-23] MEDS: ATORVASTATIN 20 MG TABLET PO (17:25)
[2025-01-23] MEDS: INSULIN GLARGINE (*BKC) 100 UNITS/ML 16 UNITS SUB-Q (20:38)
[2025-01-23] MEDS: VANCOMYCIN 1,250 MG/NS 250 ML 1,250 MG/250 ML BAG 166.67 MG IVPB (21:13)
[2025-01-23 21:23] LABS: Glucose Point of Care 224 mg/dl (65-105)
[2025-01-24] VITALS (29 sets, daily range): BP systolic 121–140; BP diastolic 73–93; PULSE 102–122; RESP 15–30; TEMP 36.6–37.2; O2SAT 89–95
[2025-01-24] MEDS: INSULIN ASPART (*BKC) 100 UNITS/ML SUB-Q ×7 (00:20→21:43)
[2025-01-24] MEDS: methylPREDNISolone SOD SUCC 125 MG VIAL 40 MG IV PUSH ×3 (00:21→11:24)
[2025-01-24 00:35] LABS: Glucose Point of Care 227 mg/dl (65-105)
[2025-01-24] MEDS: IPRATROPIUM BR 0.02% INH SOLN 0.5 MG/2.5 ML VIAL INHALATION ×4 (02:15→20:27)
[2025-01-24] MEDS: LEVALBUTEROL NEB 1.25 MG/3 ML 0.63 MG INHALATION ×4 (02:15→20:27)
[2025-01-24 03:49] LABS: Glucose Point of Care 230 mg/dl (65-105)
[2025-01-24 05:32] LABS: Basophils Absolute Auto 0.1 K/mm3 (0.0-0.1); Basophils Percent Auto 0.5 % (0.2-1.2); Hematocrit 31.1 % (37.0-47.0); Hemoglobin 10.1 g/dL (12.0-15.0); Immature Granulocyte Absolute 0.41 K/mm3 (0.00-0.031); Immature Granulocyte Percent A 2.1 % (0-0.5); Lymphocytes Absolute Auto 0.67 K/mm3 (0.9-3.2); Lymphocytes Percent Auto 3.5 % (18.3-44.2); Mean Corpuscular HGB Conc 32.5 g/dl (32-36); Mean Corpuscular Hemoglobin 31.7 pg (26-34); Mean Corpuscular Volume 97.5 fl (80-100); Mean Platelet Volume 10.6 fl (7.4-10.4); Monocytes Absolute Auto 0.6 K/mm3 (0.1-0.6); Monocytes Percent Auto 3.3 % (2.6-8.5); Neutrophils Absolute Auto 17.5 K/mm3 (1.3-6.7); Neutrophils Percent Auto 90.6 % (45.5-73.1); Platelet Count Result 291 k/mm3 (150-375); Red Blood Count 3.19 M/mm3 (4.2-5.4); Red Cell Distribution Width 15.3 % (11.5-14.5); White Blood Count 19.3 K/mm3 (4.5-10.0)
[2025-01-24 05:41] LABS: Alveolar/Arterial O2 Gradient 314.7 mmHg; Base Excess ABG 3.6 mEq/l (+/-2.0); Fractional Inspired Oxygen 60 %; HCO3 ABG 27.3 mEq/l (22.0-26.0); Oxygen Content ABG 15.1 %vol (16.0-22.0); Oxygen Saturation ABG 95.4 % (95.0-100.0); PCO2 ABG 37.7 mmHg (35.0-45.0); PO2 ABG 71.6 mmHg (80.0-100.0); PO2 FiO2 Ratio Arterial Blood 1.19 %; Total Hemoglobin 11.4 g/dL (12.0-18.0); pH ABG 7.477 (7.350-7.450)
[2025-01-24 05:42] LABS: Device VENTILATOR; Modified Allen's Test Pass; Site Drawn LEFT RADIAL
[2025-01-24 05:43] LABS: Arterial Blood Gas PEEP 5 cmH2O; Arterial Blood Gas Tidal Volume 330 ml; Arterial Blood Gas Vent Mode CMV; Arterial Blood Gas Ventilator rate 20 /MIN
[2025-01-24 05:58] LABS: Alanine Aminotransferase 26 U/L (6-35); Albumin Level 2.8 g/dL (3.5-5.1); Alkaline Phosphatase 93 U/L (38-126); Anion Gap 8 mmol/L (4-12); Aspartate Amino Transferase 42 U/L (14-36); Bilirubin,Total 0.6 mg/dL (0.2-1.3); Blood Urea Nitrogen 30 mg/dL (7-17); Calcium 8.8 mg/dL (8.4-10.2); Carbon Dioxide 29 mmol/L (22-30); Chloride 112 mmol/L (98-107); Estimated CRCL calculation 101 ml/min; Estimated Glomerular Filt Rate > 60; Glucose 256 mg/dL (65-110); Magnesium 2.5 mg/dL (1.6-2.3); Phosphorus 3.3 mg/dL (2.5-4.5); Potassium 3.8 mmol/L (3.4-5.0); Sodium 149 mmol/L (137-145); Total Protein 6.2 g/dL (6.3-8.2)
[2025-01-24 06:14] LABS: CRP. 17.4 mg/dL (<1.0)
[2025-01-24] MEDS: CENTRAL LINE FLUSH 10 ML IV PUSH ×3 (06:33→21:46)
[2025-01-24] MEDS: CENTRAL LINE FLUSH 20 ML IV PUSH (06:33)
[2025-01-24] MEDS: MEROPENEM 1 GM/NS 100 ML 1 GM/100 ML BAG IVPB ×3 (06:34→21:46)
[2025-01-24] MEDS: INSULIN GLARGINE (*BKC) 100 UNITS/ML SUB-Q (08:19)
[2025-01-24] MEDS: METOPROLOL TARTRATE 25 MG TABLET PO ×2 (08:20→20:25)
[2025-01-24] MEDS: ENOXAPARIN 40 MG/0.4 ML SYRINGE SUB-Q (08:20)
[2025-01-24] MEDS: PANTOPRAZOLE SODIUM IV 40 MG VIAL IV PUSH (08:20)
[2025-01-24] MEDS: MINERAL OIL/WHITE PETROLATUM OINTMENT 1 APPLIC EACH EYE (08:22)
[2025-01-24] MEDS: ACETAMINOPHEN ELIXIR 325 MG/10.15 ML UDC 650 MG FEED TUBE (08:23)
[2025-01-24 09:04] LABS: Glucose Point of Care 256 mg/dl (65-105)
--- NOTE | 2025-01-24 10:16 | P.PNNP_ITS ---
Progress Note: A&P Assessment and Plan (1) Hypernatremia: Code(s): E87.0 - Hyperosmolality and hypernatremia Status: Acute Assessment and Plan: * sodium up again today * as noted by trend of sodium since 01/20: * 146 (01/20) --> 149 (01/21) --> 150 (01/22) * given presentation on admission, suspect due to aggressive IVF resuscitation (due to hypotension) in conjunction with insensible free water losses given her acute infection and high fevers * continue free water flushes and titrate (increase to 225cc q 4hr) * will given another round of D5W IVFs for a total of 1 Liter * follow repeat sodium levels (2) Acute hypoxic respiratory failure: Code(s): J96.01 - Acute respiratory failure with hypoxia Status: Acute Assessment and Plan: * intubated in ER due to airway protection and hypoixia * imaging noted: * CXR - Bilateral basal pneumonia. Pulmonary edema cannot be excluded although less likely * CTof chest - no pulmonary embolism and bilateral pneumonia in the lower lobes; pneumonia in the lingula; minimal changes of pneumonia in the right middle lobe.; pneumonia in the right upper lobe posteriorly * positive of influenza A * continue bronchodilators and steroids * follow culture data * on antibiotics (3) Septic shock: Code(s): A41.9 - Sepsis, unspecified organism; R65.21 - Severe sepsis with septic shock Status: Acute Assessment and Plan: * resolving * initially on levophed and then phenylephrine * currently off all vasopressor therapy * elevated CRP and procalcitonin noted * presumably secondary to influenza A and pneumonia * blood cultures with MSSA * on antibiotics (4) PNA (pneumonia): Code(s): J18.9 - Pneumonia, unspecified organism Status: Acute Assessment and Plan: * as noted by admission imaging * on ventilator support (see #2) * on antibiotics (5) Flu: Code(s): J11.1 - Influenza due to unidentified influenza virus with other respiratory manifestations Status: Acute Assessment and Plan: * positive testing in ER for influenza A * completed course of Tamiflu (6) DKA (diabetic ketoacidosis): Code(s): E11.10 - Type 2 diabetes mellitus with ketoacidosis without coma Status: Acute Assessment and Plan: * noted presentation with elevated beta hydroxybutyrate, anion gap metabolic acidosis, UA showed ketones, glucose * suspect euglycemic diabetic ketoacidosis as patient was still taking Jardiance and metformin * off insulin gtt and transitioned to SSI + Lantus * glycemic control per intensivisit/hospitalist Will continue to follow. L Subjective Date/time seen: 01/24/25 10:16 Interval history: Follow-up for acute hypernatremia. Remains intubated and on mechanical ventilation but off sedation -- more awake when seen and following simple commands; hemodynamically stable off all vasopressor therapy and afebrile; sodium up again to 149mmol/L by AM labs; no other acute issues/events overnight or earlier this morning. Exam 2 Narrative: General: WD/WN middle aged female intubated and on mechanical ventilation Heart: tachcardic, normal S1 and S2; no rub Lungs: coarse breath sounds; bibasilar crackles and scattered wheezes Abdomen: soft, nontender, nondistended, decreased bowel sounds Extremities: no cyanosis or clubbing; no edema Skin: warm and intact Objective Data Vital Signs Vital Signs: Vital Signs Temp Pulse Resp BP Pulse Ox O2 Del Method FiO2 01/24/25 10:00 98.5 F 113 H 20 121/73 93 01/24/25 09:15 110 H 94 Mechanical Ventilation 55 01/24/25 09:04 110 H 20 01/24/25 08:20 115 H 01/24/25 08:09 55 01/24/25 08:00 120 H 01/24/25 08:00 94 Mechanical Ventilation 55 01/24/25 08:00 55 01/24/25 08:00 98.6 F 122 H 30 H 133/76 94 01/24/25 06:00 121 H 28 H 137/80 94 01/24/25 06:00 121 H 01/24/25 05:46 115 H 94 Mechanical Ventilation 60 01/24/25 05:03 60 01/24/25 05:03 92 Mechanical Ventilation 60 01/24/25 04:00 98.7 F 112 H 26 H 126/74 91 01/24/25 04:00 50 01/24/25 04:00 112 H 01/24/25 04:00 112 H 26 H 91 Mechanical Ventilation 50 01/24/25 02:26 112 H 24 H 01/24/25 02:16 109 H 90 Mechanical Ventilation 50 01/24/25 02:15 107 H 24 H 01/24/25 02:00 103 H 21 H 140/93 H 91 01/24/25 02:00 103 H 01/24/25 00:30 50 01/24/25 00:30 90 Mechanical Ventilation 50 01/24/25 00:00 99 F 109 H 29 H 127/77 89 L 01/24/25 00:00 102 H 01/23/25 23:30 103 H 25 H 90 01/23/25 23:16 102 H 93 Mechanical Ventilation 40 01/23/25 23:01 108 H 23 H 91 01/23/25 23:00 108 H 23 H 120/70 92 01/23/25 22:30 107 H 20 92 01/23/25 22:01 108 H 22 H 93 01/23/25 22:00 108 H 22 H 110/69 92 01/23/25 22:00 108 H 01/23/25 21:30 110 H 23 H 93 01/23/25 21:01 120 H 24 H 92 01/23/25 21:00 99.3 F 120 H 22 H 129/77 92 01/23/25 20:40 121 H 24 H 92 Mechanical Ventilation 45 01/23/25 20:40 127 H 01/23/25 20:30 125 H 28 H 92 01/23/25 20:06 121 H 91 Mechanical Ventilation 40 01/23/25 20:04 120 H 23 H 01/23/25 20:01 121 H 21 H 92 01/23/25 20:00 122 H 24 H 117/71 91 01/23/25 20:00 45 01/23/25 20:00 120 H 01/23/25 19:30 121 H 27 H 93 01/23/25 19:01 118 H 23 H 89 L 01/23/25 19:00 119 H 23 H 116/67 89 L 01/23/25 18:00 120 H 01/23/25 18:00 122 H 28 H 131/77 90 01/23/25 16:54 124 H 92 Mechanical Ventilation 40 01/23/25 16:00 122 H 01/23/25 16:00 98.4 F 123 H 24 H 119/71 90 01/23/25 16:00 40 01/23/25 16:00 119 H 27 H 91 Mechanical Ventilation 40 01/23/25 14:16 119 H 27 H 01/23/25 14:00 117 H 01/23/25 13:55 117 H 91 Mechanical Ventilation 40 01/23/25 13:55 117 H 25 H 01/23/25 12:00 119 H 01/23/25 12:00 117 H 25 H 97 Mechanical Ventilation 45 01/23/25 12:00 45 01/23/25 12:00 98.6 F 117 H 22 H 116/73 97 Intake/Output Intake/Output: Intake & Output 01/21/25 01/22/25 01/23/25 01/24/25 23:59 23:59 23:59 23:59 Intake Total 2468.967 2453 2997.1 1605 Output Total 2350 2650 3200 1300 Balance 118.967 -197 -202.9 305 Meds/Results Medications: Active Medications Generic Name Dose Route Start Last Admin Trade Name Freq PRN Reason Stop Dose Admin Acetaminophen 650 mg 01/18/25 20:28 01/24/25 08:23 Acetaminophen Elixir 325 Mg/10.15 Ml Udc FEED TUBE 650 mg Q4H PRN Administration Mild Pain (1-3) or Fever Atorvastatin Calcium 20 mg 01/19/25 18:00 01/23/25 17:25 Atorvastatin 20 Mg Tablet PO 20 mg QPM SESAR Administration Dextrose 12.5 gm 01/18/25 23:15 Dextrose 50% 25 Gm/50 Ml Syringe IV PUSH PRN PRN Hypoglycemia Protocol Enoxaparin Sodium 40 mg 01/20/25 09:00 01/24/25 08:20 Enoxaparin 40 Mg/0.4 Ml Syringe SUB-Q 40 mg DAILY SESAR Administration Estradiol 1 mg 01/19/25 09:00 Estradiol 1 Mg Tablet PO DAILY SESAR Glucagon 1 mg 01/18/25 23:15 Glucagon For Inj 1 Mg Vial IM PRN PRN Hypoglycemia Protocol Glucose 15 gm 01/18/25 23:15 Glucose Oral Gel 15 Gm Of Glucse In 37.5 Gm Tube PO PRN PRN Hypoglycemia Protocol Dextrose 1,000 mls @ 100 mls/hr 01/18/25 23:15 Dextrose 5% 1,000 Ml IVPB PRN PRN Hypoglycemia Protocol Meropenem 1 gm in 100 mls @ 200 mls/hr 01/23/25 14:00 01/24/25 07:04 IVPB Infused Q8HR SESAR Infusion Vancomycin HCl 1,250 mg in 250 mls @ 166.667 mls/hr 01/23/25 22:00 01/24/25 10:46 Vancomycin 1,250 Mg/Ns 250 Ml IVPB 166.67 mls/hr Q12H SESAR Administration Dextrose 1,000 mls @ 75 mls/hr 01/24/25 11:05 Dextrose 5% 1,000 Ml IV CONT 01/25/25 00:24 .[id number] SESAR Insulin Aspart 3 - 6 units 01/24/25 10:15 Insulin Aspart (*Bkc) 100 Units/Ml SUB-Q Q4H SESAR Protocol Insulin Glargine 20 units 01/24/25 21:00 Insulin Glargine (*Bkc) 100 Units/Ml SUB-Q HS SESAR Ipratropium [place] 0.5 mg 01/23/25 09:35 01/24/25 09:04 Ipratropium Br 0.02% Inh Soln 0.5 Mg/2.5 Ml Vial INHALATION 0.5 mg Q6HRT SESAR Administration Levalbuterol HCl 0.63 mg 01/23/25 09:35 01/24/25 09:04 Levalbuterol Neb 1.25 Mg/3 Ml INHALATION 0.63 mg Q6HRT SESAR Administration Methylprednisolone Sodium Succinate 40 mg 01/23/25 18:00 01/24/25 11:24 Methylprednisolone Sod Succ 125 Mg Vial IV PUSH 01/24/25 12:01 40 mg Q6HR SESAR Administration Metoprolol Tartrate 25 mg 01/19/25 09:00 01/24/25 08:20 Metoprolol Tartrate 25 Mg Tablet PO 25 mg Q12HR SESAR Administration Multi-Ingred Cream/Lotion/Oil/Oint 1 applic 01/19/25 09:00 01/24/25 08:22 Mineral Oil/White Petrolatum Ointment EACH EYE 1 applic Q12HR SESAR Administration Ondansetron HCl 4 mg 01/19/25 01:20 Ondansetron Inj 4 Mg/2 Ml Vial IV PUSH Q4H PRN Nausea And Vomiting Pantoprazole Sodium 40 mg 01/20/25 09:00 01/24/25 08:20 Pantoprazole Sodium Iv 40 Mg Vial IV PUSH 40 mg QAM SESAR Administration Polyethylene Glycol 17 gm 01/24/25 10:15 Polyethylene Glycol 3350 17 Gm Powd.Pack PO QAM PRN Constipation Senna/Docusate Sodium 1 tab 01/24/25 10:20 01/24/25 10:46 Senna/Docusate Sodium Tablet PO 1 tab Q12HR SESAR Administration Sodium Chloride 10 ml 01/19/25 06:00 01/24/25 06:33 Central Line Flush IV PUSH 10 ml Q8HR SESAR Administration Sodium Chloride 20 ml 01/19/25 04:13 01/24/25 06:33 Central Line Flush IV PUSH 20 ml PRN PRN Administration after blood draws Spironolactone 100 mg 01/19/25 09:00 Spironolactone 50 Mg Tablet PO Q12HR SESAR Radiology Results: ITS Impressions Chest CTA 01/18/25 15:25 IMPRESSION: 1. No pulmonary embolism. 2. Bilateral pneumonia in the lower lobes. Pneumonia in the lingula. Minimal changes of pneumonia in the right middle lobe. Pneumonia in the right upper lobe posteriorly. Follow-up to resolution is advised. Head CT 01/22/25 10:18 Impression: No significant abnormality seen. Abdomen X-Ray 01/23/25 15:14 IMPRESSION: Orogastric tube in good position and ready for immediate use. Chest X-Ray 01/24/25 06:40 Impression: Extensive bibasilar and perihilar airspace disease bilaterally, probably minimally improved. Correlate for pulmonary edema versus pneumonia. Support tubes, as above. Labs Labs: Laboratory Tests 01/24/25 05:23 01/24/25 05:23 Calcium 8.8 Phosphorus 3.3 Magnesium 2.5 H Total Bilirubin 0.6 AST 42 H ALT 26 Alkaline Phosphatase 93 C-Reactive Protein 17.4 H Total Protein 6.2 L Albumin 2.8 L Microbiology 01/23/25 09:09 Blood Blood Culture - Preliminary 01/23/25 09:08 Blood Blood Culture - Preliminary
[2025-01-24] MEDS: SENNA/DOCUSATE SODIUM TABLET 1 TAB PO ×2 (10:46→20:25)
[2025-01-24] MEDS: VANCOMYCIN 1,250 MG/NS 250 ML 1,250 MG/250 ML BAG 166.67 MG IVPB (10:46)
--- NOTE | 2025-01-24 10:48 | WPDINTPN ---
Progress Note: A&P Assessment and Plan (1) Septic shock: Code(s): A41.9 - Sepsis, unspecified organism; R65.21 - Severe sepsis with septic shock Status: Acute Assessment and Plan: Patient presented with bilateral lower lobe infiltrates, pneumonia, hypotension overnight requiring central line placement on 01/19, and Levophed -continue Levophed to maintain SBP> 90 mmHg, as daughter stateThat patient has normal SBP is in the 80s to 90s -01/19: switch Levophed to phenylephrine as patient is tachycardic, will wean Levophed to off -elevated CRP and procalcitonin on admission -remains febrile, continue Tylenol -this could be related to influenza A and pneumonia -01/20: currently off all pressors -01/18: Blood cultures growing MSSA -01/19: Sputum cultures obtained and pending -status post IV fluids and albumin with improvement in heart -lactic acid remains normal -01/20: Repeat blood cultures negative so far -status post doxycycline for 5 days -01/21: started on Cefazolin and DC cefepime, vancomycin (01/21) -patient has wheeze, started on Solu-Medrol for 4 doses, wheezing has improved -01/23: Patient again febrile with a T-max of 101.3?, thick yellow colored secretions from the ET tube, white blood cell count trending up. FiO2 requirements going up, Will repeat blood cultures, -01/23: DC cefazolin. Started vancomycin and meropenem (01/23) -01/23: Blood cultures: Preliminary cultures are negative -01/24: Fever curve much improved, patient is afebrile 1625: Echocardiogram Summary 1. Left ventricular chamber dimension is normal. 2. Left ventricular systolic function is normal, estimated at 60-65. 3. The left ventricular diastolic function is grade I diastolic dysfunction. 4. Right ventricular chamber dimension is mildly enlarged. 5. Right ventricular systolic function is normal. 6. Right atrial chamber dimension is mildly enlarged. 7. There is mild to moderate tricuspid valve regurgitation. (2) Acute hypoxic respiratory failure: Code(s): J96.01 - Acute respiratory failure with hypoxia Status: Acute Assessment and Plan: 01/18: Patient presented the ED with shortness of breath, weakness, diabetic ketoacidosis, pneumonia 01/18: Intubated in the ED for airway protection and hypoxia -remains on CMV mode of ventilation, peep of 5, 45% FiO2, titrate FiO2 to maintain O2 sat > 92% -chest x-ray and ABGs reviewed, ventilator adjusted - CTA chest on admission showed bilateral lower lobe pneumonia - OFF sedation since 01/21 am -positive for influenza A, On Tamiflu -01/23: bilateral diffuse wheezing, started patient on bronchodilators and Solu-Medrol -wheezing which improved this morning, -off all sedation, patient is awake, alert, nods to questions and follows commands in all extremities. Placed patient on ASV mode of ventilation and tolerating well 01/15: CTA chest IMPRESSION: 1. No pulmonary embolism. 2. Bilateral pneumonia in the lower lobes. Pneumonia in the lingula. Minimal changes of pneumonia in the right middle lobe. Pneumonia in the right upper lobe posteriorly. Follow-up to resolution is advised. (3) PNA (pneumonia): Code(s): J18.9 - Pneumonia, unspecified organism Status: Acute Assessment and Plan: Bilateral lower lobe pneumonia, continue antibiotics as above -currently intubated on mechanical ventilation (4) DKA (diabetic ketoacidosis): Code(s): E11.10 - Type 2 diabetes mellitus with ketoacidosis without coma Status: Acute Assessment and Plan: Patient presented with elevated beta hydroxybutyrate, anion gap metabolic acidosis, UA showed ketones, glucose -likely euglycemic diabetic ketoacidosis as patient was still taking Jardiance and metformin -this given 3 L IV fluids since admission, started on insulin infusion per DKA protocol -overnight patient was transition to long-acting insulin Lantus, and sliding scale insulin with Accu-Chek -continue to monitor -blood sugars in stable, continue Accu-Cheks, sliding scale insulin -increase Lantus (5) Flu: Code(s): J11.1 - Influenza due to unidentified influenza virus with other respiratory manifestations Status: Acute Assessment and Plan: Patient was tested positive for influenza A -status post Tamiflu (6) Chronic low blood pressure: Code(s): I95.89 - Other hypotension Status: Acute Assessment and Plan: Patient has chronic low blood pressures, according the daughter systolic blood pressures range in the 80s to 90s -blood pressures remain stable off pressors (7) Sinus tachycardia: Code(s): R00.0 - Tachycardia, unspecified Status: Acute Assessment and Plan: Has a history of chronic sinus tachycardia for which she is on metoprolol at home, -patient's heart rate is in the 100-110 which is her baseline -01/23: Restarted home metoprolol (8) PCOS (polycystic ovarian syndrome): Code(s): E28.2 - Polycystic ovarian syndrome Status: Acute Assessment and Plan: On spironolactone which will continue to hold for now due to patient being on pressors, hypovolemic hold estradiol (9) Hyperlipidemia: Code(s): E78.5 - Hyperlipidemia, unspecified Status: Acute Assessment and Plan: continue Atorvastatin (10) Electrolyte imbalance: Code(s): E87.8 - Other disorders of electrolyte and fluid balance, not elsewhere classified Status: Acute Assessment and Plan: Hypernatremia: Continue free water flushes, nephrology following the patient Potassium improved after replacement on 01/23 (11) Encephalopathy: Code(s): G93.40 - Encephalopathy, unspecified Status: Acute Assessment and Plan: off sedation since 01/21 am, pt not only opens eyes and intermittent 01/22: CT scan of the brain: No acute intracranial abnormalities 01/24: Patient more awake, opens her eyes, follows simple commands in all extremities and nods to question Plan DVT prophylaxis: Lovenox Stress ulcer prophylaxis: Protonix Nutrition: Tolerating tube feeds, no bowel movement, ordered MiraLax and senna S Code Status: Full code Critical Care Time Spent: 32 minutes Discussed with daughter at bedside and updated her with patient's condition and plan of care. I answered all questions Due to a high probability of clinically significant, life threatening deterioration, the patient required my highest level of preparedness to intervene emergently and I personally spent this critical care time directly and personally managing the patient. This critical care time included obtaining a history; examining the patient; pulse oximetry; ordering and review of studies; arranging urgent treatment with development of a management plan; evaluation of patient's response to treatment; frequent reassessment; and discussions with other providers. It was exclusive of separately billable procedures and treating other patients and teaching time. Please see Assessment and Plan section and the rest of the note for further information on patient assessment and treatment This dictation may have been done utilizing a voice recognition system. Attempts have been made to correct errors. However, there may be uncorrected grammatical, spelling, and recognitions errors present. Subjective Date/time seen: 01/24/25 10:48 Interval history: Reason for consult: Septic shock, acute respiratory failure, pneumonia, euglycemic diabetic ketoacidosis, 01/24/2025: Patient seen and examined the ICU, remains intubated on CMV mode of ventilation, peep of 5, 60% FiO2. She is off all sedation, more awake this morning, opens her eyes, nods to questions, follows simple commands in all extremities. Off all pressors, sodium levels up to 149 again this morning from 145 yesterday. Urine output has been good, hemodynamically stable, afebrile. Secretions much improved Review of Systems Review of Systems: ROS unobtainable: Yes unobtainable due to endotracheal tube and unobtainable due to medical condition Exam Narrative: General: Intubated and sedated, in no acute distress HEENT:? Pupils small and reactive bilaterally, sclera is clear, ETT in place Neck:? Supple, right IJ central line in place Respiratory:? Coarse breath sounds bilaterally, decreased at bases, rales bilaterally at bases, bilateral diffuse wheeze Cardiac:? Sinus tachycardia, S1-S2 was normal, no murmurs Abdomen:? Soft, nontender, nondistended, hypoactive bowel sounds Extremities:? No edema, palpable pedal pulses Neuro:? Intubated, Off all sedation since 01/21 am, opens her eyes, follows simple commands in all extremities nods to questions Skin:? No lesions noted Psych:? Unable to assess at this time Objective Data Vital Signs Vital Signs: Vital Signs - 24 hr 01/23/25 12:00 01/23/25 12:00 01/23/25 12:00 Temperature 98.6 F Pulse Rate 117 H 117 H Respiratory Rate 22 H 25 H Blood Pressure 116/73 Pulse Oximetry 97 97 Oxygen Delivery Mechanical Ventilation Fraction of Inspired Oxygen 45 45 01/23/25 12:00 01/23/25 13:55 01/23/25 13:55 Temperature Pulse Rate 119 H 117 H 117 H Respiratory Rate 25 H Blood Pressure Pulse Oximetry 91 Oxygen Delivery Mechanical Ventilation Fraction of Inspired Oxygen 40 01/23/25 14:00 01/23/25 14:16 01/23/25 16:00 Temperature Pulse Rate 117 H 119 H 119 H Respiratory Rate 27 H 27 H Blood Pressure Pulse Oximetry 91 Oxygen Delivery Mechanical Ventilation Fraction of Inspired Oxygen 40 01/23/25 16:00 01/23/25 16:00 01/23/25 16:00 Temperature 98.4 F Pulse Rate 123 H 122 H Respiratory Rate 24 H Blood Pressure 119/71 Pulse Oximetry 90 Oxygen Delivery Fraction of Inspired Oxygen 40 01/23/25 16:54 01/23/25 18:00 01/23/25 18:00 Temperature Pulse Rate 124 H 122 H 120 H Respiratory Rate 28 H Blood Pressure 131/77 Pulse Oximetry 92 90 Oxygen Delivery Mechanical Ventilation Fraction of Inspired Oxygen 40 01/23/25 19:00 01/23/25 19:01 01/23/25 19:30 Temperature Pulse Rate 119 H 118 H 121 H Respiratory Rate 23 H 23 H 27 H Blood Pressure 116/67 Pulse Oximetry 89 L 89 L 93 Oxygen Delivery Fraction of Inspired Oxygen 01/23/25 20:00 01/23/25 20:00 01/23/25 20:00 Temperature Pulse Rate 120 H 122 H Respiratory Rate 24 H Blood Pressure 117/71 Pulse Oximetry 91 Oxygen Delivery Fraction of Inspired Oxygen 45 01/23/25 20:01 01/23/25 20:04 01/23/25 20:06 Temperature Pulse Rate 121 H 120 H 121 H Respiratory Rate 21 H 23 H Blood Pressure Pulse Oximetry 92 91 Oxygen Delivery Mechanical Ventilation Fraction of Inspired Oxygen 40 01/23/25 20:30 01/23/25 20:40 01/23/25 20:40 Temperature Pulse Rate 125 H 127 H 121 H Respiratory Rate 28 H 24 H Blood Pressure Pulse Oximetry 92 92 Oxygen Delivery Mechanical Ventilation Fraction of Inspired Oxygen 45 01/23/25 21:00 01/23/25 21:01 01/23/25 21:30 Temperature 99.3 F Pulse Rate 120 H 120 H 110 H Respiratory Rate 22 H 24 H 23 H Blood Pressure 129/77 Pulse Oximetry 92 92 93 Oxygen Delivery Fraction of Inspired Oxygen 01/23/25 22:00 01/23/25 22:00 01/23/25 22:01 Temperature Pulse Rate 108 H 108 H 108 H Respiratory Rate 22 H 22 H Blood Pressure 110/69 Pulse Oximetry 92 93 Oxygen Delivery Fraction of Inspired Oxygen 01/23/25 22:30 01/23/25 23:00 01/23/25 23:01 Temperature Pulse Rate 107 H 108 H 108 H Respiratory Rate 20 23 H 23 H Blood Pressure 120/70 Pulse Oximetry 92 92 91 Oxygen Delivery Fraction of Inspired Oxygen 01/23/25 23:16 01/23/25 23:30 01/24/25 00:00 Temperature Pulse Rate 102 H 103 H 102 H Respiratory Rate 25 H Blood Pressure Pulse Oximetry 93 90 Oxygen Delivery Mechanical Ventilation Fraction of Inspired Oxygen 40 01/24/25 00:00 01/24/25 00:30 01/24/25 00:30 Temperature 99 F Pulse Rate 109 H Respiratory Rate 29 H Blood Pressure 127/77 Pulse Oximetry 89 L 90 Oxygen Delivery Mechanical Ventilation Fraction of Inspired Oxygen 50 50 01/24/25 02:00 01/24/25 02:00 01/24/25 02:15 Temperature Pulse Rate 103 H 103 H 107 H Respiratory Rate 21 H 24 H Blood Pressure 140/93 H Pulse Oximetry 91 Oxygen Delivery Fraction of Inspired Oxygen 01/24/25 02:16 01/24/25 02:26 01/24/25 04:00 Temperature Pulse Rate 109 H 112 H 112 H Respiratory Rate 24 H 26 H Blood Pressure Pulse Oximetry 90 91 Oxygen Delivery Mechanical Ventilation Mechanical Ventilation Fraction of Inspired Oxygen 50 50 01/24/25 04:00 01/24/25 04:00 01/24/25 04:00 Temperature 98.7 F Pulse Rate 112 H 112 H Respiratory Rate 26 H Blood Pressure 126/74 Pulse Oximetry 91 Oxygen Delivery Fraction of Inspired Oxygen 50 01/24/25 05:03 01/24/25 05:03 01/24/25 05:46 Temperature Pulse Rate 115 H Respiratory Rate Blood Pressure Pulse Oximetry 92 94 Oxygen Delivery Mechanical Ventilation Mechanical Ventilation Fraction of Inspired Oxygen 60 60 60 01/24/25 06:00 01/24/25 06:00 01/24/25 08:00 Temperature 98.6 F Pulse Rate 121 H 121 H 122 H Respiratory Rate 28 H 30 H Blood Pressure 137/80 133/76 Pulse Oximetry 94 94 Oxygen Delivery Fraction of Inspired Oxygen 01/24/25 08:00 01/24/25 08:00 01/24/25 08:00 Temperature Pulse Rate 120 H Respiratory Rate Blood Pressure Pulse Oximetry 94 Oxygen Delivery Mechanical Ventilation Fraction of Inspired Oxygen 55 55 01/24/25 08:09 01/24/25 08:20 01/24/25 09:04 Temperature Pulse Rate 115 H 110 H Respiratory Rate 20 Blood Pressure Pulse Oximetry Oxygen Delivery Fraction of Inspired Oxygen 55 01/24/25 09:15 01/24/25 10:00 01/24/25 10:00 Temperature 98.5 F Pulse Rate 110 H 113 H 112 H Respiratory Rate 20 Blood Pressure 121/73 Pulse Oximetry 94 93 Oxygen Delivery Mechanical Ventilation Fraction of Inspired Oxygen 55 01/24/25 10:37 Temperature Pulse Rate 111 H Respiratory Rate Blood Pressure Pulse Oximetry 95 Oxygen Delivery Mechanical Ventilation Fraction of Inspired Oxygen 55 Intake/Output Intake/Output: Intake & Output 01/21/25 01/22/25 01/23/25 01/24/25 23:59 23:59 23:59 23:59 Intake Total 2468.967 2453 2997.1 1605 Output Total 2350 2650 3200 1300 Balance 118.967 -197 -202.9 305 Meds/Results Medications: Active Medications Generic Name Dose Route Start Last Admin Trade Name Freq PRN Reason Stop Dose Admin Acetaminophen 650 mg 01/18/25 20:28 01/24/25 08:23 Acetaminophen Elixir 325 Mg/10.15 Ml Udc FEED TUBE 650 mg Q4H PRN Administration Mild Pain (1-3) or Fever Atorvastatin Calcium 20 mg 01/19/25 18:00 01/23/25 17:25 Atorvastatin 20 Mg Tablet PO 20 mg QPM SESAR Administration Dextrose 12.5 gm 01/18/25 23:15 Dextrose 50% 25 Gm/50 Ml Syringe IV PUSH PRN PRN Hypoglycemia Protocol Enoxaparin Sodium 40 mg 01/20/25 09:00 01/24/25 08:20 Enoxaparin 40 Mg/0.4 Ml Syringe SUB-Q 40 mg DAILY SESAR Administration Estradiol 1 mg 01/19/25 09:00 Estradiol 1 Mg Tablet PO DAILY SESAR Glucagon 1 mg 01/18/25 23:15 Glucagon For Inj 1 Mg Vial IM PRN PRN Hypoglycemia Protocol Glucose 15 gm 01/18/25 23:15 Glucose Oral Gel 15 Gm Of Glucse In 37.5 Gm Tube PO PRN PRN Hypoglycemia Protocol Dextrose 1,000 mls @ 100 mls/hr 01/18/25 23:15 Dextrose 5% 1,000 Ml IVPB PRN PRN Hypoglycemia Protocol Meropenem 1 gm in 100 mls @ 200 mls/hr 01/23/25 14:00 01/24/25 07:04 IVPB Infused Q8HR SESAR Infusion Vancomycin HCl 1,250 mg in 250 mls @ 166.667 mls/hr 01/23/25 22:00 01/24/25 10:46 Vancomycin 1,250 Mg/Ns 250 Ml IVPB 166.67 mls/hr Q12H SESAR Administration Insulin Aspart 3 - 6 units 01/24/25 10:15 Insulin Aspart (*Bkc) 100 Units/Ml SUB-Q Q4H SESAR Protocol Insulin Glargine 20 units 01/24/25 21:00 Insulin Glargine (*Bkc) 100 Units/Ml SUB-Q HS SESAR Ipratropium [place] 0.5 mg 01/23/25 09:35 01/24/25 09:04 Ipratropium Br 0.02% Inh Soln 0.5 Mg/2.5 Ml Vial INHALATION 0.5 mg Q6HRT SESAR Administration Levalbuterol HCl 0.63 mg 01/23/25 09:35 01/24/25 09:04 Levalbuterol Neb 1.25 Mg/3 Ml INHALATION 0.63 mg Q6HRT SESAR Administration Methylprednisolone Sodium Succinate 40 mg 01/23/25 18:00 01/24/25 06:33 Methylprednisolone Sod Succ 125 Mg Vial IV PUSH 01/24/25 12:01 40 mg Q6HR SESAR Administration Metoprolol Tartrate 25 mg 01/19/25 09:00 01/24/25 08:20 Metoprolol Tartrate 25 Mg Tablet PO 25 mg Q12HR SESAR Administration Multi-Ingred Cream/Lotion/Oil/Oint 1 applic 01/19/25 09:00 01/24/25 08:22 Mineral Oil/White Petrolatum Ointment EACH EYE 1 applic Q12HR SESAR Administration Ondansetron HCl 4 mg 01/19/25 01:20 Ondansetron Inj 4 Mg/2 Ml Vial IV PUSH Q4H PRN Nausea And Vomiting Pantoprazole Sodium 40 mg 01/20/25 09:00 01/24/25 08:20 Pantoprazole Sodium Iv 40 Mg Vial IV PUSH 40 mg QAM SESAR Administration Polyethylene Glycol 17 gm 01/24/25 10:15 Polyethylene Glycol 3350 17 Gm Powd.Pack PO QAM PRN Constipation Senna/Docusate Sodium 1 tab 01/24/25 10:20 01/24/25 10:46 Senna/Docusate Sodium Tablet PO 1 tab Q12HR ESSAR Administration Sodium Chloride 10 ml 01/19/25 06:00 01/24/25 06:33 Central Line Flush IV PUSH 10 ml Q8HR SESAR Administration Sodium Chloride 20 ml 01/19/25 04:13 01/24/25 06:33 Central Line Flush IV PUSH 20 ml PRN PRN Administration after blood draws Spironolactone 100 mg 01/19/25 09:00 Spironolactone 50 Mg Tablet PO Q12HR SESAR Radiology Results: ITS Impressions Chest CTA 01/18/25 15:25 IMPRESSION: 1. No pulmonary embolism. 2. Bilateral pneumonia in the lower lobes. Pneumonia in the lingula. Minimal changes of pneumonia in the right middle lobe. Pneumonia in the right upper lobe posteriorly. Follow-up to resolution is advised. Head CT 01/22/25 10:18 Impression: No significant abnormality seen. Abdomen X-Ray 01/23/25 15:14 IMPRESSION: Orogastric tube in good position and ready for immediate use. Chest X-Ray 01/24/25 06:40 Impression: Extensive bibasilar and perihilar airspace disease bilaterally, probably minimally improved. Correlate for pulmonary edema versus pneumonia. Support tubes, as above. Labs Labs: Laboratory Results - last 24 hr 01/23/25 01/23/25 01/23/25 12:04 16:49 20:33 WBC RBC Hgb Hct MCV MCH MCHC RDW Plt Count MPV Immature Gran % (Auto) Neut % (Auto) Lymph % (Auto) [place] % (Auto) Eos % (Auto) Baso % (Auto) Lymph # (Auto) [place] # (Auto) Eos # (Auto) Baso # (Auto) Abs Immat Gran (auto) Absolute Neuts (auto) Absolute Nucleated RBC Nucleated RBC % Puncture Site ABG pH ABG pCO2 ABG pO2 ABG PO2/FiO2 Ratio ABG HCO3 ABG O2 Saturation ABG O2 Content ABG Base Excess A-a Gradient Oxyhemoglobin Total Hemoglobin O2 Delivery Device O2 Liters/Min Minute Volume Vent Rate Vent Mode FiO2 Tidal Volume PEEP Peak Inspir Pressure Pressure Support Sodium Potassium Chloride Carbon Dioxide Anion Gap BUN Creatinine Estim Creat Clear Calc Estimated GFR Glucose POC Capillary Glucose 193 H 233 H 224 H Calcium Phosphorus Magnesium Total Bilirubin AST ALT Alkaline Phosphatase C-Reactive Protein Total Protein Albumin 01/24/25 01/24/25 01/24/25 00:20 03:46 05:23 WBC 19.3 H RBC 3.19 L Hgb 10.1 L Hct 31.1 L MCV 97.5 MCH 31.7 MCHC 32.5 RDW 15.3 H Plt Count 291 MPV 10.6 H Immature Gran % (Auto) 2.1 H Neut % (Auto) 90.6 H Lymph % (Auto) 3.5 L [place] % (Auto) 3.3 Eos % (Auto) 0.0 Baso % (Auto) 0.5 Lymph # (Auto) 0.67 L [place] # (Auto) 0.6 Eos # (Auto) 0.0 Baso # (Auto) 0.1 Abs Immat Gran (auto) 0.41 H Absolute Neuts (auto) 17.5 H Absolute Nucleated RBC 0.000 Nucleated RBC % 0.0 Puncture Site ABG pH ABG pCO2 ABG pO2 ABG PO2/FiO2 Ratio ABG HCO3 ABG O2 Saturation ABG O2 Content ABG Base Excess A-a Gradient Oxyhemoglobin Total Hemoglobin O2 Delivery Device O2 Liters/Min Minute Volume Vent Rate Vent Mode FiO2 Tidal Volume PEEP Peak Inspir Pressure Pressure Support Sodium 149 H Potassium 3.8 Chloride 112 H Carbon Dioxide 29 Anion Gap 8 BUN 30 H Creatinine 0.46 L Estim Creat Clear Calc 101 Estimated GFR > 60 Glucose 256 H POC Capillary Glucose 227 H 230 H Calcium 8.8 Phosphorus 3.3 Magnesium 2.5 H Total Bilirubin 0.6 AST 42 H ALT 26 Alkaline Phosphatase 93 C-Reactive Protein 17.4 H Total Protein 6.2 L Albumin 2.8 L 01/24/25 01/24/25 05:30 07:58 WBC RBC Hgb Hct MCV MCH MCHC RDW Plt Count MPV Immature Gran % (Auto) Neut % (Auto) Lymph % (Auto) [place] % (Auto) Eos % (Auto) Baso % (Auto) Lymph # (Auto) [place] # (Auto) Eos # (Auto) Baso # (Auto) Abs Immat Gran (auto) Absolute Neuts (auto) Absolute Nucleated RBC Nucleated RBC % Puncture Site Left radial ABG pH 7.477 H ABG pCO2 37.7 ABG pO2 71.6 L ABG PO2/FiO2 Ratio 1.19 ABG HCO3 27.3 H ABG O2 Saturation 95.4 ABG O2 Content 15.1 L ABG Base Excess 3.6 A-a Gradient 314.7 Oxyhemoglobin 94.0 Total Hemoglobin 11.4 L O2 Delivery Device Ventilator O2 Liters/Min Not Reportable Minute Volume Not Reportable Vent Rate 20 Vent Mode Cmv FiO2 60 Tidal Volume 330 PEEP 5 Peak Inspir Pressure Not Reportable Pressure Support Not Reportable Sodium Potassium Chloride Carbon Dioxide Anion Gap BUN Creatinine Estim Creat Clear Calc Estimated GFR Glucose POC Capillary Glucose 256 H Calcium Phosphorus Magnesium Total Bilirubin AST ALT Alkaline Phosphatase C-Reactive Protein Total Protein Albumin Quality VTE Prophylaxis VTE prophylaxis: pharmacologic ordered
[2025-01-24] MEDS: DEXTROSE 5% 1,000 ML 1,000 ML 75 ML IV CONT (11:35)
[2025-01-24 12:22] LABS: Glucose Point of Care 283 mg/dl (65-105)
[2025-01-24 14:09] LABS: Glucose Point of Care 276 mg/dl (65-105)
[2025-01-24] MEDS: ATORVASTATIN 20 MG TABLET PO (17:59)
[2025-01-24 19:44] LABS: Glucose Point of Care 286 mg/dl (65-105)
[2025-01-24 21:40] LABS: Glucose Point of Care 330 mg/dl (65-105)
[2025-01-24] MEDS: INSULIN GLARGINE (*BKC) 100 UNITS/ML 20 UNITS SUB-Q (21:43)
[2025-01-24 21:57] LABS: Vancomycin Trough 8.8 ug/mL (10.0-20.0)
[2025-01-24] MEDS: VANCOMYCIN 1,500 MG/NS 500 ML 1,500 MG/500 ML BAG 250 MG IVPB (22:52)
[2025-01-25] VITALS (24 sets, daily range): BP systolic 121–140; BP diastolic 72–87; PULSE 88–115; RESP 13–26; TEMP 36.4–36.9; O2SAT 92–100
[2025-01-25] MEDS: INSULIN ASPART (*BKC) 100 UNITS/ML SUB-Q ×2 (02:12→06:12)
[2025-01-25] MEDS: LEVALBUTEROL NEB 1.25 MG/3 ML 0.63 MG INHALATION ×4 (02:22→21:09)
[2025-01-25 02:23] LABS: Glucose Point of Care 291 mg/dl (65-105)
[2025-01-25] MEDS: IPRATROPIUM BR 0.02% INH SOLN 0.5 MG/2.5 ML VIAL INHALATION ×4 (02:23→21:09)
[2025-01-25] MEDS: CENTRAL LINE FLUSH 10 ML IV PUSH ×3 (05:15→20:59)
[2025-01-25] MEDS: CENTRAL LINE FLUSH 20 ML IV PUSH (05:16)
[2025-01-25 05:29] LABS: Basophils Absolute Auto 0.1 K/mm3 (0.0-0.1); Basophils Percent Auto 0.3 % (0.2-1.2); Hematocrit 29.5 % (37.0-47.0); Hemoglobin 9.6 g/dL (12.0-15.0); Immature Granulocyte Absolute 0.31 K/mm3 (0.00-0.031); Immature Granulocyte Percent A 1.4 % (0-0.5); Lymphocytes Absolute Auto 1.49 K/mm3 (0.9-3.2); Lymphocytes Percent Auto 6.9 % (18.3-44.2); Mean Corpuscular HGB Conc 32.5 g/dl (32-36); Mean Corpuscular Hemoglobin 32.2 pg (26-34); Mean Platelet Volume 10.5 fl (7.4-10.4); Monocytes Absolute Auto 1.2 K/mm3 (0.1-0.6); Monocytes Percent Auto 5.4 % (2.6-8.5); Neutrophils Absolute Auto 18.6 K/mm3 (1.3-6.7); Platelet Count Result 402 k/mm3 (150-375); Red Blood Count 2.98 M/mm3 (4.2-5.4); Red Cell Distribution Width 15.1 % (11.5-14.5); White Blood Count 21.7 K/mm3 (4.5-10.0)
[2025-01-25 05:40] LABS: Alveolar/Arterial O2 Gradient 234.8 mmHg; Base Excess ABG 4.6 mEq/l (+/-2.0); Carboxyhemoglobin 0.4 % THb (0-2.0); Fractional Inspired Oxygen 50 %; HCO3 ABG 27.6 mEq/l (22.0-26.0); Methemoglobin ABG 0.3 %THb (0-1.5); Oxygen Content ABG 15.4 %vol (16.0-22.0); Oxyhemoglobin 95.8 % THb (90.0-100.0); PCO2 ABG 35.3 mmHg (35.0-45.0); PO2 FiO2 Ratio Arterial Blood 1.64 %; Reduced Hemoglobin 3.5 %THb (0-5.0); Total Hemoglobin 11.4 g/dL (12.0-18.0)
[2025-01-25 05:45] LABS: Device VENTILATOR; Modified Allen's Test Pass; Site Drawn RIGHT RADIAL; pH ABG 7.511 (7.350-7.450)
[2025-01-25 05:46] LABS: Arterial Blood Gas PEEP 5 cmH2O; Arterial Blood Gas Pressure Support 40 cmH2O; Arterial Blood Gas Vent Mode ASV
[2025-01-25 05:50] LABS: Alanine Aminotransferase 31 U/L (6-35); Albumin Level 2.6 g/dL (3.5-5.1); Alkaline Phosphatase 78 U/L (38-126); Aspartate Amino Transferase 49 U/L (14-36); Bilirubin,Total 0.5 mg/dL (0.2-1.3); Blood Urea Nitrogen 32 mg/dL (7-17); Calcium 8.5 mg/dL (8.4-10.2); Carbon Dioxide 32 mmol/L (22-30); Chloride 110 mmol/L (98-107); Estimated CRCL calculation 95 ml/min; Estimated Glomerular Filt Rate > 60; Glucose 237 mg/dL (65-110); Magnesium 2.4 mg/dL (1.6-2.3); Potassium 3.2 mmol/L (3.4-5.0); Total Protein 5.6 g/dL (6.3-8.2)
[2025-01-25 06:05] LABS: Hypochromasia 1+; Platelet Estimate Increased (Adequate)
[2025-01-25 06:06] LABS: Anisocytosis 1+; Microcytosis 1+ (NORMAL); Schistocytes None Seen
[2025-01-25] MEDS: MEROPENEM 1 GM/NS 100 ML 1 GM/100 ML BAG IVPB ×3 (06:12→22:12)
[2025-01-25] MEDS: VANCOMYCIN 1,500 MG/NS 500 ML 1,500 MG/500 ML BAG 250 MG IVPB ×3 (06:12→23:16)
[2025-01-25 06:48] LABS: Anion Gap 3 mmol/L (4-12); Sodium 145 mmol/L (137-145)
[2025-01-25 07:35] LABS: Glucose Point of Care 229 mg/dl (65-105)
[2025-01-25] MEDS: POTASSIUM/PHOSPHORUS/SODIUM 1.5 GM PACKET 1 PACKET PO (07:57)
[2025-01-25] MEDS: POTASSIUM CHLORIDE 20 MEQ PACKET (FOR LIQUID) 40 MEQ FEED TUBE (07:57)
[2025-01-25] MEDS: ENOXAPARIN 40 MG/0.4 ML SYRINGE SUB-Q (07:57)
[2025-01-25] MEDS: SENNA/DOCUSATE SODIUM TABLET 1 TAB PO (07:58)
[2025-01-25] MEDS: METOPROLOL TARTRATE 25 MG TABLET PO (07:58)
[2025-01-25] MEDS: PANTOPRAZOLE SODIUM IV 40 MG VIAL IV PUSH (07:58)
[2025-01-25] MEDS: MINERAL OIL/WHITE PETROLATUM OINTMENT 1 APPLIC EACH EYE (09:15)
--- NOTE | 2025-01-25 09:57 | WPDINTPN ---
Progress Note: A&P Assessment and Plan (1) Septic shock: Code(s): A41.9 - Sepsis, unspecified organism; R65.21 - Severe sepsis with septic shock Status: Acute Assessment and Plan: Patient presented with bilateral lower lobe infiltrates, pneumonia, hypotension overnight requiring central line placement on 01/19, and Levophed -continue Levophed to maintain SBP> 90 mmHg, as daughter stateThat patient has normal SBP is in the 80s to 90s -01/19: switch Levophed to phenylephrine as patient is tachycardic, will wean Levophed to off -elevated CRP and procalcitonin on admission -remains febrile, continue Tylenol -this could be related to influenza A and pneumonia -01/20: currently off all pressors -01/18: Blood cultures growing MSSA -01/19: Sputum cultures obtained and pending -status post IV fluids and albumin with improvement in heart -lactic acid remains normal -01/20: Repeat blood cultures negative so far -status post doxycycline for 5 days -01/21: started on Cefazolin and DC cefepime, vancomycin (01/21) -patient has wheeze, started on Solu-Medrol for 4 doses, wheezing has improved -01/23: Patient again febrile with a T-max of 101.3?, thick yellow colored secretions from the ET tube, white blood cell count trending up. FiO2 requirements going up, Will repeat blood cultures, -01/23: DC cefazolin. Started vancomycin and meropenem (01/23) -01/23: Blood cultures: Preliminary cultures are negative -01/24: Fever curve much improved, patient is afebrile -01/25: Patient has been afebrile, hemodynamically stable, secretions much improved 1625: Echocardiogram Summary 1. Left ventricular chamber dimension is normal. 2. Left ventricular systolic function is normal, estimated at 60-65. 3. The left ventricular diastolic function is grade I diastolic dysfunction. 4. Right ventricular chamber dimension is mildly enlarged. 5. Right ventricular systolic function is normal. 6. Right atrial chamber dimension is mildly enlarged. 7. There is mild to moderate tricuspid valve regurgitation. (2) Acute hypoxic respiratory failure: Code(s): J96.01 - Acute respiratory failure with hypoxia Status: Acute Assessment and Plan: 01/18: Patient presented the ED with shortness of breath, weakness, diabetic ketoacidosis, pneumonia 01/18: Intubated in the ED for airway protection and hypoxia -remains on CMV mode of ventilation, peep of 5, 45% FiO2, titrate FiO2 to maintain O2 sat > 92% -chest x-ray and ABGs reviewed, ventilator adjusted - CTA chest on admission showed bilateral lower lobe pneumonia - OFF sedation since 01/21 am -positive for influenza A, On Tamiflu -01/23: bilateral diffuse wheezing, started patient on bronchodilators and Solu-Medrol -wheezing which improved this morning, -off all sedation, patient is awake, alert, nods to questions and follows commands in all extremities. Placed patient on ASV mode of ventilation and tolerating well -place patient on SBT, will evaluate for extubation 01/15: CTA chest IMPRESSION: 1. No pulmonary embolism. 2. Bilateral pneumonia in the lower lobes. Pneumonia in the lingula. Minimal changes of pneumonia in the right middle lobe. Pneumonia in the right upper lobe posteriorly. Follow-up to resolution is advised. (3) PNA (pneumonia): Code(s): J18.9 - Pneumonia, unspecified organism Status: Acute Assessment and Plan: Bilateral lower lobe pneumonia, continue antibiotics as above -currently intubated on mechanical ventilation (4) DKA (diabetic ketoacidosis): Code(s): E11.10 - Type 2 diabetes mellitus with ketoacidosis without coma Status: Acute Assessment and Plan: Patient presented with elevated beta hydroxybutyrate, anion gap metabolic acidosis, UA showed ketones, glucose -likely euglycemic diabetic ketoacidosis as patient was still taking Jardiance and metformin -this given 3 L IV fluids since admission, started on insulin infusion per DKA protocol -overnight patient was transition to long-acting insulin Lantus, and sliding scale insulin with Accu-Chek -continue to monitor -blood sugars in stable, continue Accu-Cheks, sliding scale insulin -increase Lantus (5) Flu: Code(s): J11.1 - Influenza due to unidentified influenza virus with other respiratory manifestations Status: Acute Assessment and Plan: Patient was tested positive for influenza A -status post Tamiflu (6) Chronic low blood pressure: Code(s): I95.89 - Other hypotension Status: Acute Assessment and Plan: Patient has chronic low blood pressures, according the daughter systolic blood pressures range in the 80s to 90s -blood pressures remain stable off pressors (7) Sinus tachycardia: Code(s): R00.0 - Tachycardia, unspecified Status: Acute Assessment and Plan: Has a history of chronic sinus tachycardia for which she is on metoprolol at home, -patient's heart rate is in the 100-110 which is her baseline -01/23: Restarted home metoprolol (8) PCOS (polycystic ovarian syndrome): Code(s): E28.2 - Polycystic ovarian syndrome Status: Acute Assessment and Plan: On spironolactone which will continue to hold for now due to patient being on pressors, hypovolemic hold estradiol (9) Hyperlipidemia: Code(s): E78.5 - Hyperlipidemia, unspecified Status: Acute Assessment and Plan: continue Atorvastatin (10) Electrolyte imbalance: Code(s): E87.8 - Other disorders of electrolyte and fluid balance, not elsewhere classified Status: Acute Assessment and Plan: Hypernatremia: Continue free water flushes, nephrology following the patient Replace potassium and phosphorus (11) Encephalopathy: Code(s): G93.40 - Encephalopathy, unspecified Status: Acute Assessment and Plan: off sedation since 01/21 am, pt not only opens eyes and intermittent 01/22: CT scan of the brain: No acute intracranial abnormalities 01/25: Patient more awake, opens her eyes, follows simple commands in all extremities and nods to question, patient is on her cellphone Plan DVT prophylaxis: Lovenox Stress ulcer prophylaxis: Protonix Nutrition: Tolerating tube feeds, positive bowel movement on 01/25, continue p.r.n. MiraLax and senna S Code Status: Full code Critical Care Time Spent: 32 minutes Discussed with daughter at bedside and updated her with patient's condition and plan of care. I answered all questions Due to a high probability of clinically significant, life threatening deterioration, the patient required my highest level of preparedness to intervene emergently and I personally spent this critical care time directly and personally managing the patient. This critical care time included obtaining a history; examining the patient; pulse oximetry; ordering and review of studies; arranging urgent treatment with development of a management plan; evaluation of patient's response to treatment; frequent reassessment; and discussions with other providers. It was exclusive of separately billable procedures and treating other patients and teaching time. Please see Assessment and Plan section and the rest of the note for further information on patient assessment and treatment This dictation may have been done utilizing a voice recognition system. Attempts have been made to correct errors. However, there may be uncorrected grammatical, spelling, and recognitions errors present. Subjective Date/time seen: 01/25/25 09:57 Interval history: Reason for consult: Septic shock, acute respiratory failure, pneumonia, euglycemic diabetic ketoacidosis, 01/25/2025: Patient seen and examined the ICU, remains intubated on CMV mode of ventilation, peep of 5, 50% FiO2. She is off all sedation, more awake this morning, opens her eyes, nods to questions, follows simple commands in all extremities, patient is on her cellphone. Off all pressors, sodium levels up to 145, status post D5 water per Nephrology. Urine output has been good, hemodynamically stable, afebrile. Secretions much improved Review of Systems Review of Systems: ROS unobtainable: Yes unobtainable due to endotracheal tube and unobtainable due to medical condition Exam Narrative: General: Intubated and sedated, in no acute distress HEENT:? Pupils small and reactive bilaterally, sclera is clear, ETT in place Neck:? Supple, right IJ central line in place Respiratory:? Coarse breath sounds bilaterally, decreased at bases, rales bilaterally at bases, bilateral diffuse wheeze Cardiac:? Sinus tachycardia, S1-S2 was normal, no murmurs Abdomen:? Soft, nontender, nondistended, hypoactive bowel sounds Extremities:? No edema, palpable pedal pulses Neuro:? Intubated, Off all sedation since 01/21 am, opens her eyes, follows simple commands in all extremities nods to questions Skin:? No lesions noted Psych:? Unable to assess at this time Objective Data Vital Signs Vital Signs: Vital Signs - 24 hr 01/24/25 10:00 01/24/25 10:01/24/25 10:37 Temperature 98.5 F Pulse Rate 113 H 112 H 111 H Respiratory Rate 20 Blood Pressure 121/73 Pulse Oximetry 93 95 Oxygen Delivery Mechanical Ventilation Fraction of Inspired Oxygen 55 01/24/25 12:00 01/24/25 12:00 01/24/25 12:00 Temperature Pulse Rate 108 H Respiratory Rate Blood Pressure Pulse Oximetry 95 Oxygen Delivery Mechanical Ventilation Fraction of Inspired Oxygen 50 50 01/24/25 12:00 01/24/25 13:54 01/24/25 14:00 Temperature 98.6 F 98 F Pulse Rate 107 H 103 H Respiratory Rate 19 Blood Pressure 128/80 Pulse Oximetry 92 Oxygen Delivery Fraction of Inspired Oxygen 01/24/25 14:00 01/24/25 14:33 01/24/25 14:33 Temperature Pulse Rate 103 H 104 H 103 H Respiratory Rate 16 22 H Blood Pressure 125/81 Pulse Oximetry 93 92 Oxygen Delivery Mechanical Ventilation Fraction of Inspired Oxygen 55 01/24/25 16:00 01/24/25 16:00 01/24/25 16:00 Temperature 98.2 F Pulse Rate 116 H Respiratory Rate 24 H Blood Pressure 135/91 H Pulse Oximetry 91 93 Oxygen Delivery Mechanical Ventilation Fraction of Inspired Oxygen 50 50 01/24/25 16:00 01/24/25 17:23 01/24/25 18:00 Temperature 98.3 F Pulse Rate 111 H 112 H 118 H Respiratory Rate 16 Blood Pressure 132/77 Pulse Oximetry 93 95 Oxygen Delivery Mechanical Ventilation Fraction of Inspired Oxygen 50 01/24/25 18:00 01/24/25 20:00 01/24/25 20:00 Temperature Pulse Rate 118 H Respiratory Rate Blood Pressure Pulse Oximetry 94 Oxygen Delivery Mechanical Ventilation Fraction of Inspired Oxygen 50 50 01/24/25 20:00 01/24/25 20:00 01/24/25 20:25 Temperature 97.9 F Pulse Rate 113 H 113 H 115 H Respiratory Rate 16 Blood Pressure 128/76 Pulse Oximetry 94 Oxygen Delivery Fraction of Inspired Oxygen 01/24/25 20:27 01/24/25 20:27 01/24/25 20:40 Temperature Pulse Rate 113 H 113 H 113 H Respiratory Rate 18 18 Blood Pressure Pulse Oximetry 94 Oxygen Delivery Mechanical Ventilation Fraction of Inspired Oxygen 50 01/24/25 22:00 01/24/25 22:00 01/24/25 23:01 Temperature Pulse Rate 103 H 103 H 104 H Respiratory Rate 15 Blood Pressure 123/74 Pulse Oximetry 95 94 Oxygen Delivery Mechanical Ventilation Fraction of Inspired Oxygen 50 01/25/25 00:00 01/25/25 00:00 01/25/25 00:00 Temperature 98.1 F Pulse Rate 104 H Respiratory Rate 14 Blood Pressure 121/76 Pulse Oximetry 95 95 Oxygen Delivery Mechanical Ventilation Fraction of Inspired Oxygen 50 50 01/25/25 00:00 01/25/25 02:00 01/25/25 02:00 Temperature Pulse Rate 106 H 104 H 104 H Respiratory Rate 14 Blood Pressure 122/76 Pulse Oximetry 96 Oxygen Delivery Fraction of Inspired Oxygen 01/25/25 02:22 01/25/25 02:35 01/25/25 02:45 Temperature Pulse Rate 113 H 113 H 112 H Respiratory Rate 18 18 Blood Pressure Pulse Oximetry 94 Oxygen Delivery Mechanical Ventilation Fraction of Inspired Oxygen 50 01/25/25 04:00 01/25/25 04:00 01/25/25 04:00 Temperature Pulse Rate 112 H Respiratory Rate Blood Pressure Pulse Oximetry 95 Oxygen Delivery Mechanical Ventilation Fraction of Inspired Oxygen 50 50 01/25/25 04:00 01/25/25 05:41 01/25/25 06:00 Temperature 97.5 F L Pulse Rate 113 H 112 H 115 H Respiratory Rate 13 Blood Pressure 129/77 Pulse Oximetry 95 94 Oxygen Delivery Mechanical Ventilation Fraction of Inspired Oxygen 50 01/25/25 06:00 01/25/25 08:00 01/25/25 08:00 Temperature 97.8 F Pulse Rate 108 H 113 H Respiratory Rate 16 24 H Blood Pressure 129/74 140/87 Pulse Oximetry 95 95 Oxygen Delivery Fraction of Inspired Oxygen 40 01/25/25 08:00 01/25/25 08:40 01/25/25 08:46 Temperature Pulse Rate 100 100 Respiratory Rate 25 H Blood Pressure Pulse Oximetry 95 94 Oxygen Delivery Mechanical Ventilation Mechanical Ventilation Fraction of Inspired Oxygen 50 40 Intake/Output Intake/Output: Intake & Output 01/22/25 01/23/25 01/24/25 01/25/25 23:59 23:59 23:59 23:59 Intake Total 2453 2997.1 3356 1885 Output Total 2650 3200 2600 1475 Balance -197 -202.9 756 410 Meds/Results Medications: Active Medications Generic Name Dose Route Start Last Admin Trade Name Freq PRN Reason Stop Dose Admin Acetaminophen 650 mg 01/18/25 20:28 01/24/25 08:23 Acetaminophen Elixir 325 Mg/10.15 Ml Udc FEED TUBE 650 mg Q4H PRN Administration Mild Pain (1-3) or Fever Atorvastatin Calcium 20 mg 01/19/25 18:00 01/24/25 17:59 Atorvastatin 20 Mg Tablet PO 20 mg QPM SESAR Administration Dextrose 12.5 gm 01/18/25 23:15 Dextrose 50% 25 Gm/50 Ml Syringe IV PUSH PRN PRN Hypoglycemia Protocol Enoxaparin Sodium 40 mg 01/20/25 09:00 01/25/25 07:57 Enoxaparin 40 Mg/0.4 Ml Syringe SUB-Q 40 mg DAILY SESAR Administration Estradiol 1 mg 01/19/25 09:00 Estradiol 1 Mg Tablet PO DAILY SESAR Glucagon 1 mg 01/18/25 23:15 Glucagon For Inj 1 Mg Vial IM PRN PRN Hypoglycemia Protocol Glucose 15 gm 01/18/25 23:15 Glucose Oral Gel 15 Gm Of Glucse In 37.5 Gm Tube PO PRN PRN Hypoglycemia Protocol Dextrose 1,000 mls @ 100 mls/hr 01/18/25 23:15 Dextrose 5% 1,000 Ml IVPB PRN PRN Hypoglycemia Protocol Meropenem 1 gm in 100 mls @ 200 mls/hr 01/23/25 14:00 01/25/25 06:12 IVPB 200 mls/hr Q8HR SESAR Administration Vancomycin HCl 1,500 mg in 500 mls @ 250 mls/hr 01/24/25 23:00 01/25/25 06:12 Vancomycin 1,500 Mg/Ns 500 Ml IVPB 250 mls/hr Q8H SESAR Administration Insulin Aspart 3 - 6 units 01/24/25 10:15 01/25/25 06:12 Insulin Aspart (*Bkc) 100 Units/Ml SUB-Q 3 units Q4H SESAR Administration Protocol Insulin Glargine 25 units 01/25/25 21:00 Insulin Glargine (*Bkc) 100 Units/Ml SUB-Q HS SESAR Ipratropium Mchenry 0.5 mg 01/23/25 09:35 01/25/25 08:45 Ipratropium Br 0.02% Inh Soln 0.5 Mg/2.5 Ml Vial INHALATION 0.5 mg Q6HRT SESAR Administration Levalbuterol HCl 0.63 mg 01/23/25 09:35 01/25/25 08:45 Levalbuterol Neb 1.25 Mg/3 Ml INHALATION 0.63 mg Q6HRT SESAR Administration Metoprolol Tartrate 25 mg 01/19/25 09:00 01/25/25 07:58 Metoprolol Tartrate 25 Mg Tablet PO 25 mg Q12HR SESAR Administration Multi-Ingred Cream/Lotion/Oil/Oint 1 applic 01/19/25 09:00 01/24/25 20:26 Mineral Oil/White Petrolatum Ointment EACH EYE Not Given Q12HR SESAR Ondansetron HCl 4 mg 01/19/25 01:20 Ondansetron Inj 4 Mg/2 Ml Vial IV PUSH Q4H PRN Nausea And Vomiting Pantoprazole Sodium 40 mg 01/20/25 09:00 01/25/25 07:58 Pantoprazole Sodium Iv 40 Mg Vial IV PUSH 40 mg QAM SESAR Administration Polyethylene Glycol 17 gm 01/24/25 10:15 Polyethylene Glycol 3350 17 Gm Powd.Pack PO QAM PRN Constipation Senna/Docusate Sodium 1 tab 01/24/25 10:20 01/25/25 07:58 Senna/Docusate Sodium Tablet PO 1 tab Q12HR SESAR Administration Sodium Chloride 10 ml 01/19/25 06:00 01/25/25 05:15 Central Line Flush IV PUSH 10 ml Q8HR SESAR Administration Sodium Chloride 20 ml 01/19/25 04:13 01/25/25 05:16 Central Line Flush IV PUSH 20 ml PRN PRN Administration after blood draws Spironolactone 100 mg 01/19/25 09:00 Spironolactone 50 Mg Tablet PO Q12HR SESAR Radiology Results: ITS Impressions Chest CTA 01/18/25 15:25 IMPRESSION: 1. No pulmonary embolism. 2. Bilateral pneumonia in the lower lobes. Pneumonia in the lingula. Minimal changes of pneumonia in the right middle lobe. Pneumonia in the right upper lobe posteriorly. Follow-up to resolution is advised. Head CT 01/22/25 10:18 Impression: No significant abnormality seen. Abdomen X-Ray 01/23/25 15:14 IMPRESSION: Orogastric tube in good position and ready for immediate use. Chest X-Ray 01/25/25 05:58 Impression: Probable mild improvement in bibasilar and bilateral perihilar airspace disease. Correlate for improving pneumonia or pulmonary edema. Minimal left pleural effusion. Stable support tubes. Labs Labs: Laboratory Results - last 24 hr 01/24/25 01/24/25 01/24/25 11:32 13:49 17:56 WBC RBC Hgb Hct MCV MCH MCHC RDW Plt Count MPV Immature Gran % (Auto) Neut % (Auto) Lymph % (Auto) [place] % (Auto) Eos % (Auto) Baso % (Auto) Lymph # (Auto) [place] # (Auto) Eos # (Auto) Baso # (Auto) Abs Immat Gran (auto) Absolute Neuts (auto) Absolute Nucleated RBC Band Neutrophils % Nucleated RBC % Platelet Estimate Hypochromasia Anisocytosis Microcytosis Schistocytes Puncture Site ABG pH ABG pCO2 ABG pO2 ABG PO2/FiO2 Ratio ABG HCO3 ABG O2 Saturation ABG O2 Content ABG Base Excess A-a Gradient Oxyhemoglobin Carboxyhemoglobin Methemoglobin Reduced Hemoglobin Total Hemoglobin O2 Delivery Device O2 Liters/Min Minute Volume Vent Rate Vent Mode FiO2 Tidal Volume PEEP Peak Inspir Pressure Pressure Support Sodium Potassium Chloride Carbon Dioxide Anion Gap BUN Creatinine Estim Creat Clear Calc Estimated GFR Glucose POC Capillary Glucose 283 H 276 H 286 H Calcium Phosphorus Magnesium Total Bilirubin AST ALT Alkaline Phosphatase Total Protein Albumin Vancomycin Trough 01/24/25 01/24/25 01/25/25 21:32 21:34 02:07 WBC RBC Hgb Hct MCV MCH MCHC RDW Plt Count MPV Immature Gran % (Auto) Neut % (Auto) Lymph % (Auto) [place] % (Auto) Eos % (Auto) Baso % (Auto) Lymph # (Auto) [place] # (Auto) Eos # (Auto) Baso # (Auto) Abs Immat Gran (auto) Absolute Neuts (auto) Absolute Nucleated RBC Band Neutrophils % Nucleated RBC % Platelet Estimate Hypochromasia Anisocytosis Microcytosis Schistocytes Puncture Site ABG pH ABG pCO2 ABG pO2 ABG PO2/FiO2 Ratio ABG HCO3 ABG O2 Saturation ABG O2 Content ABG Base Excess A-a Gradient Oxyhemoglobin Carboxyhemoglobin Methemoglobin Reduced Hemoglobin Total Hemoglobin O2 Delivery Device O2 Liters/Min Minute Volume Vent Rate Vent Mode FiO2 Tidal Volume PEEP Peak Inspir Pressure Pressure Support Sodium Potassium Chloride Carbon Dioxide Anion Gap BUN Creatinine Estim Creat Clear Calc Estimated GFR Glucose POC Capillary Glucose 330 H 291 H Calcium Phosphorus Magnesium Total Bilirubin AST ALT Alkaline Phosphatase Total Protein Albumin Vancomycin Trough 8.8 L 01/25/25 01/25/25 01/25/25 05:20 05:28 07:32 WBC 21.7 H RBC 2.98 L Hgb 9.6 L Hct 29.5 L MCV 99.0 MCH 32.2 MCHC 32.5 RDW 15.1 H Plt Count 402 H MPV 10.5 H Immature Gran % (Auto) 1.4 H Neut % (Auto) 86.0 H Lymph % (Auto) 6.9 L [place] % (Auto) 5.4 Eos % (Auto) 0.0 Baso % (Auto) 0.3 Lymph # (Auto) 1.49 [place] # (Auto) 1.2 H Eos # (Auto) 0.0 Baso # (Auto) 0.1 Abs Immat Gran (auto) 0.31 H Absolute Neuts (auto) 18.6 H Absolute Nucleated RBC 0.000 Band Neutrophils % Not Reportable Nucleated RBC % 0.0 Platelet Estimate Increased Hypochromasia 1+ Anisocytosis 1+ Microcytosis 1+ Schistocytes None seen Puncture Site Right radial ABG pH 7.511 H* ABG pCO2 35.3 ABG pO2 82.0 ABG PO2/FiO2 Ratio 1.64 ABG HCO3 27.6 H ABG O2 Saturation 97.0 ABG O2 Content 15.4 L ABG Base Excess 4.6 A-a Gradient 234.8 Oxyhemoglobin 95.8 Carboxyhemoglobin 0.4 Methemoglobin 0.3 Reduced Hemoglobin 3.5 Total Hemoglobin 11.4 L O2 Delivery Device Ventilator O2 Liters/Min Not Reportable Minute Volume 100.0 Vent Rate Not Reportable Vent Mode Asv FiO2 50 Tidal Volume Not Reportable PEEP 5 Peak Inspir Pressure Not Reportable Pressure Support 40 Sodium 145 Potassium 3.2 L Chloride 110 H Carbon Dioxide 32 H Anion Gap 3 L BUN 32 H Creatinine 0.49 L Estim Creat Clear Calc 95 Estimated GFR > 60 Glucose 237 H POC Capillary Glucose 229 H Calcium 8.5 Phosphorus 2.0 L Magnesium 2.4 H Total Bilirubin 0.5 AST 49 H ALT 31 Alkaline Phosphatase 78 Total Protein 5.6 L Albumin 2.6 L Vancomycin Trough Quality VTE Prophylaxis VTE prophylaxis: pharmacologic ordered
[2025-01-25 10:33] LABS: Alveolar/Arterial O2 Gradient 174.8 mmHg; Base Excess ABG 5.3 mEq/l (+/-2.0); Carboxyhemoglobin 0.5 % THb (0-2.0); Fractional Inspired Oxygen 40 %; HCO3 ABG 28.1 mEq/l (22.0-26.0); Methemoglobin ABG 0.3 %THb (0-1.5); Oxygen Content ABG 14.7 %vol (16.0-22.0); Oxygen Saturation ABG 95.7 % (95.0-100.0); Oxyhemoglobin 93.8 % THb (90.0-100.0); PO2 ABG 70.2 mmHg (80.0-100.0); PO2 FiO2 Ratio Arterial Blood 1.75 %; Reduced Hemoglobin 5.4 %THb (0-5.0); Total Hemoglobin 11.1 g/dL (12.0-18.0)
--- NOTE | 2025-01-25 10:47 | PCFNICU ---
ICU Rounding Note: Pt current nutrition is Vital AF 1.2 @ 60 ml/h with flushes 225 ml q 4 - ON HOLD TODAY. Nutrition recommendation: If extubated, speech evaluation and appropriate PO diet. If not extubated resume current tube feeding orders Last recorded weight is 65 kg. Bowel Motility: +1 BM 01/25 Labs Reviewed: Hgb 29.5, Hct 29.5, Alb 2.6, K+ 3.2, BUN 32, Cre 0.49, Glu 237, Mag 2.4 Meds Noted: Sedation is off. Jardiance, protonix, Lantus, lovenox Skin: WNL Additional Notes: Tube feeding on hold for breathin trial today. Likely extubate today. Continue to monitor. Following daily in ICU rounds. Will monitor weight, labs, skin, diet orders, meds, tube feeding tolerance every Saturday and Saturday. .
--- NOTE | 2025-01-25 11:20 | P.PNNP_ITS ---
Progress Note: A&P Assessment and Plan (1) Hypernatremia: Code(s): E87.0 - Hyperosmolality and hypernatremia Status: Acute Assessment and Plan: * sodium better by recent testing * as noted by trend of sodium since 01/20: * 146 (01/20) --> 149 (01/21) --> 150 (01/22) * given presentation on admission, suspect due to aggressive IVF resuscitation (due to hypotension) in conjunction with insensible free water losses given her acute infection and high fevers * off free water flushes since extubated * s/p D5W IVFs for a total of 1 Liter x 2 * follow repeat sodium levels (2) Acute hypoxic respiratory failure: Code(s): J96.01 - Acute respiratory failure with hypoxia Status: Acute Assessment and Plan: * resolved/resolving -- extubated today * intubated in ER due to airway protection and hypoixia * imaging noted: * CXR - Bilateral basal pneumonia. Pulmonary edema cannot be excluded although less likely * CTof chest - no pulmonary embolism and bilateral pneumonia in the lower lobes; pneumonia in the lingula; minimal changes of pneumonia in the right middle lobe.; pneumonia in the right upper lobe posteriorly * positive of influenza A * continue bronchodilators and steroids * follow culture data * on antibiotics (3) Septic shock: Code(s): A41.9 - Sepsis, unspecified organism; R65.21 - Severe sepsis with septic shock Status: Acute Assessment and Plan: * resolving/resolved * initially on levophed and then phenylephrine * currently off all vasopressor therapy * elevated CRP and procalcitonin noted * presumably secondary to influenza A and pneumonia * blood cultures with MSSA * on antibiotics (4) PNA (pneumonia): Code(s): J18.9 - Pneumonia, unspecified organism Status: Acute Assessment and Plan: * as noted by admission imaging * weaned off ventilator support * follow respiratory status * on antibiotics (5) Flu: Code(s): J11.1 - Influenza due to unidentified influenza virus with other respiratory manifestations Status: Acute Assessment and Plan: * positive testing in ER for influenza A * completed course of Tamiflu (6) DKA (diabetic ketoacidosis): Code(s): E11.10 - Type 2 diabetes mellitus with ketoacidosis without coma Status: Acute Assessment and Plan: * noted presentation with elevated beta hydroxybutyrate, anion gap metabolic acidosis, UA showed ketones, glucose * suspect euglycemic diabetic ketoacidosis as patient was still taking Jardiance and metformin * off insulin gtt and transitioned to SSI + Lantus * glycemic control per intensivisit/hospitalist Will continue to follow. L Subjective Date/time seen: 01/25/25 11:20 Interval history: Follow-up for acute hypernatremia. Sodium doing better once again following another liter of D5W IV fluids; successfully extubated earlier this morning with relative stability in respiratory status/breathing; otherwise, appears to be doing reasonably well; remains hemodynamically stable at this time; no apparent distress noted at the time of my visit. Exam 2 Narrative: General: WD/WN middle aged female and in NAD Heart: tachcardic, normal S1 and S2; no rub Lungs: coarse breath sounds Abdomen: soft, nontender, nondistended, decreased bowel sounds Extremities: no cyanosis or clubbing; no edema Skin: no rash Objective Data Vital Signs Vital Signs: Vital Signs Temp Pulse Resp BP Pulse Ox O2 Del Method O2 Flow Rate 01/25/25 10:55 88 20 95 Nasal Cannula 4 01/25/25 10:00 97.9 F 106 H 18 122/85 95 01/25/25 08:46 100 25 H 01/25/25 08:40 100 94 Mechanical Ventilation 01/25/25 08:00 95 Mechanical Ventilation 01/25/25 08:00 01/25/25 08:00 97.8 F 113 H 24 H 140/87 95 01/25/25 06:00 108 H 16 129/74 95 01/25/25 06:00 115 H 01/25/25 05:41 112 H 94 Mechanical Ventilation 01/25/25 04:00 97.5 F L 113 H 13 129/77 95 01/25/25 04:00 95 Mechanical Ventilation 01/25/25 04:00 112 H 01/25/25 04:00 01/25/25 02:45 112 H 94 Mechanical Ventilation 01/25/25 02:35 113 H 18 01/25/25 02:22 113 H 18 01/25/25 02:00 104 H 14 122/76 96 01/25/25 02:00 104 H 01/25/25 00:00 106 H 01/25/25 00:00 98.1 F 104 H 14 121/76 95 01/25/25 00:00 01/25/25 00:00 95 Mechanical Ventilation 01/24/25 23:01 104 H 94 Mechanical Ventilation 01/24/25 22:00 103 H 15 123/74 95 01/24/25 22:00 103 H 01/24/25 20:40 113 H 18 01/24/25 20:27 113 H 94 Mechanical Ventilation 01/24/25 20:27 113 H 18 01/24/25 20:25 115 H 01/24/25 20:00 97.9 F 113 H 16 128/76 94 01/24/25 20:00 113 H 01/24/25 20:00 01/24/25 20:00 94 Mechanical Ventilation Intake/Output Intake/Output: Intake & Output 01/22/25 01/23/25 01/24/25 01/25/25 23:59 23:59 23:59 23:59 Intake Total 2453 2997.1 3356 2761 Output Total 2650 3200 2600 2475 Balance -197 -202.9 756 286 Meds/Results Medications: Active Medications Generic Name Dose Route Start Last Admin Trade Name Freq PRN Reason Stop Dose Admin Acetaminophen 650 mg 01/18/25 20:28 01/24/25 08:23 Acetaminophen Elixir 325 Mg/10.15 Ml Udc FEED TUBE 650 mg Q4H PRN Administration Mild Pain (1-3) or Fever Atorvastatin Calcium 20 mg 01/19/25 18:00 01/24/25 17:59 Atorvastatin 20 Mg Tablet PO 20 mg QPM SEASR Administration Dextrose 12.5 gm 01/18/25 23:15 Dextrose 50% 25 Gm/50 Ml Syringe IV PUSH PRN PRN Hypoglycemia Protocol Enoxaparin Sodium 40 mg 01/20/25 09:00 01/25/25 07:57 Enoxaparin 40 Mg/0.4 Ml Syringe SUB-Q 40 mg DAILY SESAR Administration Estradiol 1 mg 01/19/25 09:00 Estradiol 1 Mg Tablet PO DAILY SESAR Glucagon 1 mg 01/18/25 23:15 Glucagon For Inj 1 Mg Vial IM PRN PRN Hypoglycemia Protocol Glucose 15 gm 01/18/25 23:15 Glucose Oral Gel 15 Gm Of Glucse In 37.5 Gm Tube PO PRN PRN Hypoglycemia Protocol Dextrose 1,000 mls @ 100 mls/hr 01/18/25 23:15 Dextrose 5% 1,000 Ml IVPB PRN PRN Hypoglycemia Protocol Meropenem 1 gm in 100 mls @ 200 mls/hr 01/23/25 14:00 01/25/25 15:15 IVPB 200 mls/hr Q8HR SESAR Administration Vancomycin HCl 1,500 mg in 500 mls @ 250 mls/hr 01/24/25 23:00 01/25/25 15:14 Vancomycin 1,500 Mg/Ns 500 Ml IVPB 250 mls/hr Q8H SESAR Administration Insulin Aspart 3 - 6 units 01/24/25 10:15 01/25/25 18:20 Insulin Aspart (*Bkc) 100 Units/Ml SUB-Q Not Given Q4H SESAR Protocol Insulin Glargine 25 units 01/25/25 21:00 Insulin Glargine (*Bkc) 100 Units/Ml SUB-Q HS SESAR Ipratropium [place] 0.5 mg 01/23/25 09:35 01/25/25 15:34 Ipratropium Br 0.02% Inh Soln 0.5 Mg/2.5 Ml Vial INHALATION 0.5 mg Q6HRT SESAR Administration Levalbuterol HCl 0.63 mg 01/23/25 09:35 01/25/25 15:33 Levalbuterol Neb 1.25 Mg/3 Ml INHALATION 0.63 mg Q6HRT SESAR Administration Metoprolol Tartrate 25 mg 01/19/25 09:00 01/25/25 07:58 Metoprolol Tartrate 25 Mg Tablet PO 25 mg Q12HR SESAR Administration Multi-Ingred Cream/Lotion/Oil/Oint 1 applic 01/19/25 09:00 01/25/25 09:15 Mineral Oil/White Petrolatum Ointment EACH EYE 1 applic Q12HR SESAR Administration Ondansetron HCl 4 mg 01/19/25 01:20 Ondansetron Inj 4 Mg/2 Ml Vial IV PUSH Q4H PRN Nausea And Vomiting Pantoprazole Sodium 40 mg 01/20/25 09:00 01/25/25 07:58 Pantoprazole Sodium Iv 40 Mg Vial IV PUSH 40 mg QAM SESAR Administration Polyethylene Glycol 17 gm 01/24/25 10:15 Polyethylene Glycol 3350 17 Gm Powd.Pack PO QAM PRN Constipation Senna/Docusate Sodium 1 tab 01/24/25 10:20 01/25/25 07:58 Senna/Docusate Sodium Tablet PO 1 tab Q12HR SESAR Administration Sodium Chloride 10 ml 01/19/25 06:00 01/25/25 15:15 Central Line Flush IV PUSH 10 ml Q8HR SESAR Administration Sodium Chloride 20 ml 01/19/25 04:13 01/25/25 05:16 Central Line Flush IV PUSH 20 ml PRN PRN Administration after blood draws Spironolactone 100 mg 01/19/25 09:00 Spironolactone 50 Mg Tablet PO Q12HR [facility] Radiology Results: ITS Impressions Chest CTA 01/18/25 15:25 IMPRESSION: 1. No pulmonary embolism. 2. Bilateral pneumonia in the lower lobes. Pneumonia in the lingula. Minimal changes of pneumonia in the right middle lobe. Pneumonia in the right upper lobe posteriorly. Follow-up to resolution is advised. Head CT 01/22/25 10:18 Impression: No significant abnormality seen. Abdomen X-Ray 01/23/25 15:14 IMPRESSION: Orogastric tube in good position and ready for immediate use. Chest X-Ray 01/25/25 05:58 Impression: Probable mild improvement in bibasilar and bilateral perihilar airspace disease. Correlate for improving pneumonia or pulmonary edema. Minimal left pleural effusion. Stable support tubes. Labs Labs: Laboratory Tests 01/25/25 05:20 01/25/25 05:20 Calcium 8.5 Phosphorus 2.0 L Magnesium 2.4 H Total Bilirubin 0.5 AST 49 H ALT 31 Alkaline Phosphatase 78 Total Protein 5.6 L Albumin 2.6 L Microbiology 01/24/25 09:08 Sputum Sputum Culture - Preliminary
[2025-01-25 11:34] LABS: Modified Allen's Test Pass; Site Drawn LEFT RADIAL; pH ABG 7.523 (7.350-7.450)
[2025-01-25 11:36] LABS: Arterial Blood Gas PEEP 5 cmH2O; Arterial Blood Gas Pressure Support 8 cmH2O; Arterial Blood Gas Vent Mode SPONTANEOUS; Device VENTILATOR
[2025-01-25 11:37] LABS: Glucose Point of Care 190 mg/dl (65-105)
--- NOTE | 2025-01-25 13:02 | PCSTNOTE ---
Please refer to the Bedside Swallow Evaluation in the EMR. Please note, silent aspiration cannot be ruled out at bedside.
[2025-01-25] MEDS: ATORVASTATIN 20 MG TABLET PO (18:55)
[2025-01-25 19:10] LABS: Glucose Point of Care 177 mg/dl (65-105)
[2025-01-25] MEDS: METOPROLOL TARTRATE INJ 5 MG/5 ML VIAL IV PUSH (20:58)
[2025-01-25] MEDS: INSULIN GLARGINE (*BKC) 100 UNITS/ML 10 UNITS SUB-Q (20:58)
[2025-01-25 21:10] LABS: Glucose Point of Care 177 mg/dl (65-105)
[2025-01-25 22:42] LABS: Vancomycin Trough 18.1 ug/mL (10.0-20.0)
[2025-01-26] VITALS (16 sets, daily range): BP systolic 120–131; BP diastolic 65–108; PULSE 104–114; RESP 16–27; TEMP 36.6–37.1; O2SAT 90–98
[2025-01-26] MEDS: METOPROLOL TARTRATE INJ 5 MG/5 ML VIAL IV PUSH ×2 (02:30→09:31)
[2025-01-26 02:43] LABS: Glucose Point of Care 142 mg/dl (65-105)
[2025-01-26] MEDS: LEVALBUTEROL NEB 1.25 MG/3 ML 0.63 MG INHALATION ×2 (02:54→22:37)
[2025-01-26] MEDS: IPRATROPIUM BR 0.02% INH SOLN 0.5 MG/2.5 ML VIAL INHALATION (02:54)
[2025-01-26 04:54] LABS: Basophils Percent Auto 0.2 % (0.2-1.2); Eosinophils Percent Auto 0.3 % (0-4.4); Hemoglobin 8.9 g/dL (12.0-15.0); Immature Granulocyte Absolute 0.14 K/mm3 (0.00-0.031); Immature Granulocyte Percent A 0.9 % (0-0.5); Lymphocytes Absolute Auto 1.65 K/mm3 (0.9-3.2); Lymphocytes Percent Auto 10.3 % (18.3-44.2); Mean Corpuscular HGB Conc 31.8 g/dl (32-36); Mean Corpuscular Hemoglobin 31.8 pg (26-34); Mean Platelet Volume 10.4 fl (7.4-10.4); Monocytes Absolute Auto 0.7 K/mm3 (0.1-0.6); Monocytes Percent Auto 4.4 % (2.6-8.5); Neutrophils Absolute Auto 13.4 K/mm3 (1.3-6.7); Neutrophils Percent Auto 83.9 % (45.5-73.1); Platelet Count Result 416 k/mm3 (150-375); Red Cell Distribution Width 15.1 % (11.5-14.5)
[2025-01-26 05:15] LABS: Alanine Aminotransferase 35 U/L (6-35); Albumin Level 2.4 g/dL (3.5-5.1); Alkaline Phosphatase 61 U/L (38-126); Anion Gap 3 mmol/L (4-12); Aspartate Amino Transferase 45 U/L (14-36); Bilirubin,Total 0.8 mg/dL (0.2-1.3); Blood Urea Nitrogen 23 mg/dL (7-17); Calcium 8.3 mg/dL (8.4-10.2); Carbon Dioxide 30 mmol/L (22-30); Chloride 112 mmol/L (98-107); Estimated CRCL calculation 105 ml/min; Estimated Glomerular Filt Rate > 60; Glucose 136 mg/dL (65-110); Magnesium 2.2 mg/dL (1.6-2.3); Phosphorus 2.8 mg/dL (2.5-4.5); Potassium 3.3 mmol/L (3.4-5.0); Sodium 145 mmol/L (137-145); Total Protein 5.5 g/dL (6.3-8.2)
[2025-01-26] MEDS: VANCOMYCIN 1,500 MG/NS 500 ML 1,500 MG/500 ML BAG 250 MG IVPB (06:08)
[2025-01-26] MEDS: CENTRAL LINE FLUSH 10 ML IV PUSH ×3 (06:09→20:40)
[2025-01-26] MEDS: MEROPENEM 1 GM/NS 100 ML 1 GM/100 ML BAG IVPB ×3 (06:09→20:40)
[2025-01-26 07:37] LABS: Glucose Point of Care 140 mg/dl (65-105)
--- NOTE | 2025-01-26 08:54 | P.PNINT_ITS ---
Progress Note: A&P Assessment and Plan (1) Septic shock: Code(s): A41.9 - Sepsis, unspecified organism; R65.21 - Severe sepsis with septic shock Status: Acute Assessment and Plan: Patient presented with bilateral lower lobe infiltrates, pneumonia, hypotension overnight requiring central line placement on 01/19, and Levophed -01/20: currently off all pressors -01/18: Blood and sputum cultures growing MSSA -01/20 and 01/23: Repeat blood cultures negative so far -status post doxycycline for 5 days -01/21: started on Cefazolin and DC cefepime, vancomycin (01/21) -patient received a course of Solu-Medrol for 4 doses, wheezing has improved -01/23: Patient again febrile with a T-max of 101.3?, thick yellow colored secretions from the ET tube, white blood cell count trending up. FiO2 requirements going up, Will repeat blood cultures, -01/23: DC cefazolin. Started vancomycin and meropenem (01/23) Fever curve much improved, patient is afebrile, improvement in WBC 1625: Echocardiogram Summary 1. Left ventricular chamber dimension is normal. 2. Left ventricular systolic function is normal, estimated at 60-65. 3. The left ventricular diastolic function is grade I diastolic dysfunction. 4. Right ventricular chamber dimension is mildly enlarged. 5. Right ventricular systolic function is normal. 6. Right atrial chamber dimension is mildly enlarged. 7. There is mild to moderate tricuspid valve regurgitation. (2) Acute hypoxic respiratory failure: Code(s): J96.01 - Acute respiratory failure with hypoxia Status: Acute Assessment and Plan: 01/18: Patient presented the ED with shortness of breath, weakness, diabetic ketoacidosis, pneumonia. Intubated in the ED for airway protection and hypoxia 01/25 extubated -chest x-ray and ABGs reviewed, - CTA chest on admission showed bilateral lower lobe pneumonia -positive for influenza A, On Tamiflu -01/23: bilateral diffuse wheezing, continue bronchodilators and received a course Solu-Medrol -wheezing which improved this morning, Continue supplemental oxygen Incentive spirometry 01/15: CTA chest IMPRESSION: 1. No pulmonary embolism. 2. Bilateral pneumonia in the lower lobes. Pneumonia in the lingula. Minimal changes of pneumonia in the right middle lobe. Pneumonia in the right upper lobe posteriorly. Follow-up to resolution is advised. (3) PNA (pneumonia): Code(s): J18.9 - Pneumonia, unspecified organism Status: Acute Assessment and Plan: Bilateral lower lobe pneumonia, continue antibiotics as above -currently intubated on mechanical ventilation (4) DKA (diabetic ketoacidosis): Code(s): E11.10 - Type 2 diabetes mellitus with ketoacidosis without coma Status: Acute Assessment and Plan: Patient presented with elevated beta hydroxybutyrate, anion gap metabolic acidosis, UA showed ketones, glucose -likely euglycemic diabetic ketoacidosis as patient was still taking Jardiance and metformin -this given 3 L IV fluids since admission, started on insulin infusion per DKA protocol -overnight patient was transition to long-acting insulin Lantus, and sliding scale insulin with Accu-Chek -continue to monitor -blood sugars in stable, continue Accu-Cheks, sliding scale insulin and Lantus (5) Flu: Code(s): J11.1 - Influenza due to unidentified influenza virus with other respiratory manifestations Status: Acute Assessment and Plan: Patient was tested positive for influenza A -status post course of Tamiflu (6) Chronic low blood pressure: Code(s): I95.89 - Other hypotension Status: Acute Assessment and Plan: Patient has chronic low blood pressures, according the daughter systolic blood pressures range in the 80s to 90s -blood pressures remain stable off pressors (7) Sinus tachycardia: Code(s): R00.0 - Tachycardia, unspecified Status: Acute Assessment and Plan: Has a history of chronic sinus tachycardia for which she is on metoprolol at home, -patient's heart rate is in the 100-110 which is her baseline -01/23: Restarted home metoprolol Change bronchodilators p.r.n. Check thyroid function test (8) PCOS (polycystic ovarian syndrome): Code(s): E28.2 - Polycystic ovarian syndrome Status: Acute Assessment and Plan: Hold spironolactone (9) Hyperlipidemia: Code(s): E78.5 - Hyperlipidemia, unspecified Status: Acute Assessment and Plan: continue Atorvastatin (10) Electrolyte imbalance: Code(s): E87.8 - Other disorders of electrolyte and fluid balance, not elsewhere classified Status: Acute Assessment and Plan: Replace potassium (11) Encephalopathy: Code(s): G93.40 - Encephalopathy, unspecified Status: Acute Assessment and Plan: Improving. Part delirium. Will get her up in a chair, PT OT, IS Plan DVT prophylaxis: Lovenox Stress ulcer prophylaxis: Protonix Nutrition: Swallow study ordered and pending Code Status: Full code Subjective Date/time seen: 01/26/25 Patient was extubated yesterday after a successful weaning trial. She is on supplemental oxygen. She has some confusion overnight but overall she is alert oriented x3. She denies any specific complaints and states that she has dry mouth and lips. She is NPO and is awaiting swallow study. Patient denies fever, chest pain, shortness of breath, cough, nausea vomiting, abdominal pain,, diarrhea, headache or constipation. All other systems were reviewed and were negative. She has good urine output. She has sinus tachycardia on the monitor. She is on 4 L nasal cannula. Review of Systems Review of Systems: All systems reviewed & are unremarkable except as noted in HPI and below (HPI) Exam Narrative: General: Awake alert in no acute distress HEENT:? Pupils small and reactive bilaterally, sclera is clear, Neck:? Supple, right IJ central line in place Respiratory:? Coarse breath sounds bilaterally, decreased at bases, bilateral wheezing, no tachypnea use of accessory muscles or respiratory distress Cardiac:? Sinus tachycardia, S1-S2 was normal, no murmurs Abdomen:? Soft, nontender, nondistended, hypoactive bowel sounds Extremities:? No edema, palpable pedal pulses Neuro:? Intubated, AO x3 follows simple commands in all extremities carries conversation but is little confused and goes tangential when answering questions Skin:? No lesions noted Psych:? Normal speech and affect Objective Data Vital Signs Vital Signs: Vital Signs - 24 hr 01/25/25 10:00 01/25/25 10:00 01/25/25 10:55 Temperature 36.6 C Pulse Rate 106 H 115 H 88 Respiratory Rate 18 20 Blood Pressure 122/85 Pulse Oximetry 95 95 Oxygen Delivery Nasal Cannula Oxygen Flow Rate 4 Fraction of Inspired Oxygen 01/25/25 12:00 01/25/25 12:00 01/25/25 12:00 Temperature 36.4 C Pulse Rate 88 94 103 H Respiratory Rate 20 24 H Blood Pressure 123/77 Pulse Oximetry 95 100 Oxygen Delivery Nasal Cannula Oxygen Flow Rate 4 Fraction of Inspired Oxygen 40 01/25/25 12:15 01/25/25 13:31 01/25/25 14:00 Temperature Pulse Rate 109 H 105 H Respiratory Rate 22 H 25 H Blood Pressure 128/77 Pulse Oximetry 94 Oxygen Delivery Nasal Cannula Oxygen Flow Rate 6 Fraction of Inspired Oxygen 01/25/25 14:00 01/25/25 15:39 01/25/25 15:50 Temperature Pulse Rate 114 H 104 H 110 H Respiratory Rate 18 18 Blood Pressure Pulse Oximetry Oxygen Delivery Oxygen Flow Rate Fraction of Inspired Oxygen 01/25/25 16:00 01/25/25 16:00 01/25/25 16:00 Temperature 36.4 C Pulse Rate 88 108 H 111 H Respiratory Rate 20 26 H Blood Pressure 128/79 Pulse Oximetry 95 100 Oxygen Delivery Nasal Cannula Oxygen Flow Rate 4 Fraction of Inspired Oxygen 40 01/25/25 18:00 01/25/25 18:00 01/25/25 20:00 Temperature 36.4 C L Pulse Rate 108 H 108 H Respiratory Rate 21 H Blood Pressure 131/78 Pulse Oximetry 93 92 Oxygen Delivery Nasal Cannula Oxygen Flow Rate 4 Fraction of Inspired Oxygen 01/25/25 20:00 01/25/25 20:00 01/25/25 20:58 Temperature 36.9 C Pulse Rate 112 H 112 H 113 H Respiratory Rate 26 H Blood Pressure 133/79 Pulse Oximetry 92 Oxygen Delivery Oxygen Flow Rate Fraction of Inspired Oxygen 01/25/25 21:09 01/25/25 22:00 01/25/25 22:00 Temperature Pulse Rate 103 H 108 H 108 H Respiratory Rate 19 18 Blood Pressure 122/72 Pulse Oximetry 92 Oxygen Delivery Oxygen Flow Rate Fraction of Inspired Oxygen 01/26/25 00:00 01/26/25 00:00 01/26/25 00:00 Temperature 36.6 C Pulse Rate 107 H 110 H Respiratory Rate 26 H Blood Pressure 124/76 Pulse Oximetry 94 94 Oxygen Delivery Nasal Cannula Oxygen Flow Rate 4 Fraction of Inspired Oxygen 01/26/25 02:00 01/26/25 02:00 01/26/25 02:30 Temperature Pulse Rate 110 H 110 H 109 H Respiratory Rate 27 H Blood Pressure 120/77 Pulse Oximetry 94 Oxygen Delivery Oxygen Flow Rate Fraction of Inspired Oxygen 01/26/25 02:50 01/26/25 04:00 01/26/25 04:00 Temperature Pulse Rate 105 H 107 H Respiratory Rate 22 H Blood Pressure Pulse Oximetry 94 Oxygen Delivery Nasal Cannula Oxygen Flow Rate 4 Fraction of Inspired Oxygen 01/26/25 04:00 01/26/25 06:00 01/26/25 06:00 Temperature 36.8 C Pulse Rate 106 H 104 H 108 H Respiratory Rate 25 H 23 H Blood Pressure 123/71 128/73 Pulse Oximetry 98 90 Oxygen Delivery Oxygen Flow Rate Fraction of Inspired Oxygen 01/26/25 08:00 Temperature 36.9 C Pulse Rate 110 H Respiratory Rate 27 H Blood Pressure 120/77 Pulse Oximetry 94 Oxygen Delivery Oxygen Flow Rate Fraction of Inspired Oxygen Intake/Output Intake/Output: Intake & Output 01/23/25 01/24/25 01/25/25 01/26/25 23:59 23:59 23:59 23:59 Intake Total 2997.1 3356 3461 600 Output Total 3200 2600 2475 1000 Balance -202.9 756 986 -400 Meds/Results Medications: Active Medications Generic Name Dose Route Start Last Admin Trade Name Freq PRN Reason Stop Dose Admin Acetaminophen 650 mg 01/18/25 20:28 01/24/25 08:23 Acetaminophen Elixir 325 Mg/10.15 Ml Udc FEED TUBE 650 mg Q4H PRN Administration Mild Pain (1-3) or Fever Atorvastatin Calcium 20 mg 01/19/25 18:00 01/25/25 18:55 Atorvastatin 20 Mg Tablet PO 20 mg QPM SESAR Administration Dextrose 12.5 gm 01/18/25 23:15 Dextrose 50% 25 Gm/50 Ml Syringe IV PUSH PRN PRN Hypoglycemia Protocol Enoxaparin Sodium 40 mg 01/20/25 09:00 01/25/25 07:57 Enoxaparin 40 Mg/0.4 Ml Syringe SUB-Q 40 mg DAILY SESAR Administration Estradiol 1 mg 01/19/25 09:00 Estradiol 1 Mg Tablet PO DAILY SESAR Glucagon 1 mg 01/18/25 23:15 Glucagon For Inj 1 Mg Vial IM PRN PRN Hypoglycemia Protocol Glucose 15 gm 01/18/25 23:15 Glucose Oral Gel 15 Gm Of Glucse In 37.5 Gm Tube PO PRN PRN Hypoglycemia Protocol Dextrose 1,000 mls @ 100 mls/hr 01/18/25 23:15 Dextrose 5% 1,000 Ml IVPB PRN PRN Hypoglycemia Protocol Meropenem 1 gm in 100 mls @ 200 mls/hr 01/23/25 14:00 01/26/25 06:42 IVPB Infused Q8HR SESAR Infusion Vancomycin HCl 1,500 mg in 500 mls @ 250 mls/hr 01/24/25 23:00 01/26/25 06:08 Vancomycin 1,500 Mg/Ns 500 Ml IVPB 250 mls/hr Q8H SESAR Administration Potassium Chloride 100 mls @ 25 mls/hr 01/26/25 07:40 Kcl 40 Meq/Water 100 Ml IVPB 01/26/25 11:39 ONCE ONE Insulin Aspart 3 - 6 units 01/24/25 10:15 01/26/25 07:40 Insulin Aspart (*Bkc) 100 Units/Ml SUB-Q Not Given Q4H [facility] Protocol Insulin Glargine 10 units 01/25/25 21:00 01/25/25 20:58 Insulin Glargine (*Bkc) 100 Units/Ml SUB-Q 10 units HS SESAR Administration Ipratropium Valier 0.5 mg 01/26/25 07:34 Ipratropium Br 0.02% Inh Soln 0.5 Mg/2.5 Ml Vial INHALATION Q6HRT PRN Wheezing Levalbuterol HCl 0.63 mg 01/26/25 07:34 Levalbuterol Neb 1.25 Mg/3 Ml INHALATION Q6HRT PRN Wheezing Metoprolol Tartrate 25 mg 01/19/25 09:00 01/25/25 07:58 Metoprolol Tartrate 25 Mg Tablet PO 25 mg Q12HR SESAR Administration Metoprolol Tartrate 5 mg 01/25/25 21:00 01/26/25 02:30 Metoprolol Tartrate Inj 5 Mg/5 Ml Vial IV PUSH 5 mg Q6H SESAR Administration Ondansetron HCl 4 mg 01/19/25 01:20 Ondansetron Inj 4 Mg/2 Ml Vial IV PUSH Q4H PRN Nausea And Vomiting Pantoprazole Sodium 40 mg 01/20/25 09:00 01/25/25 07:58 Pantoprazole Sodium Iv 40 Mg Vial IV PUSH 40 mg QAM SESAR Administration Polyethylene Glycol 17 gm 01/24/25 10:15 Polyethylene Glycol 3350 17 Gm Powd.Pack PO QAM PRN Constipation Senna/Docusate Sodium 1 tab 01/24/25 10:20 01/25/25 20:49 Senna/Docusate Sodium Tablet PO Not Given Q12HR SESAR Sodium Chloride 10 ml 01/19/25 06:00 01/26/25 06:09 Central Line Flush IV PUSH 10 ml Q8HR SESAR Administration Sodium Chloride 20 ml 01/19/25 04:13 01/25/25 05:16 Central Line Flush IV PUSH 20 ml PRN PRN Administration after blood draws Spironolactone 100 mg 01/19/25 09:00 Spironolactone 50 Mg Tablet PO Q12HR [facility] Radiology Results: ITS Impressions Chest CTA 01/18/25 15:25 IMPRESSION: 1. No pulmonary embolism. 2. Bilateral pneumonia in the lower lobes. Pneumonia in the lingula. Minimal changes of pneumonia in the right middle lobe. Pneumonia in the right upper lobe posteriorly. Follow-up to resolution is advised. Head CT 01/22/25 10:18 Impression: No significant abnormality seen. Abdomen X-Ray 01/23/25 15:14 IMPRESSION: Orogastric tube in good position and ready for immediate use. Chest X-Ray 01/26/25 05:29 Impression: Worsening bibasilar and bilateral perihilar airspace disease with small pleural effusions. Findings suggest worsening pulmonary edema/atelectasis. Correlate clinically for pneumonia. Right IJ line in place. Labs Labs: Laboratory Results - last 24 hr 01/25/25 01/25/25 01/25/25 10:31 11:34 18:57 WBC RBC Hgb Hct MCV MCH MCHC RDW Plt Count MPV Immature Gran % (Auto) Neut % (Auto) Lymph % (Auto) Roberts % (Auto) Eos % (Auto) Baso % (Auto) Lymph # (Auto) Roberts # (Auto) Eos # (Auto) Baso # (Auto) Abs Immat Gran (auto) Absolute Neuts (auto) Absolute Nucleated RBC Nucleated RBC % Puncture Site Left radial ABG pH 7.523 H* ABG pCO2 35.0 ABG pO2 70.2 L ABG PO2/FiO2 Ratio 1.75 ABG HCO3 28.1 H ABG O2 Saturation 95.7 ABG O2 Content 14.7 L ABG Base Excess 5.3 A-a Gradient 174.8 Oxyhemoglobin 93.8 Carboxyhemoglobin 0.5 Methemoglobin 0.3 Reduced Hemoglobin 5.4 H Total Hemoglobin 11.1 L O2 Delivery Device Ventilator O2 Liters/Min Not Reportable Minute Volume Not Reportable Vent Rate Not Reportable Vent Mode Spontaneous FiO2 40 Tidal Volume Not Reportable PEEP 5 Peak Inspir Pressure Not Reportable Pressure Support 8 Sodium Potassium Chloride Carbon Dioxide Anion Gap BUN Creatinine Estim Creat Clear Calc Estimated GFR Glucose POC Capillary Glucose 190 H 177 H Calcium Phosphorus Magnesium Total Bilirubin AST ALT Alkaline Phosphatase Total Protein Albumin Vancomycin Trough 01/25/25 01/25/25 01/26/25 20:56 22:11 02:29 WBC RBC Hgb Hct MCV MCH MCHC RDW Plt Count MPV Immature Gran % (Auto) Neut % (Auto) Lymph % (Auto) Roberts % (Auto) Eos % (Auto) Baso % (Auto) Lymph # (Auto) Roberts # (Auto) Eos # (Auto) Baso # (Auto) Abs Immat Gran (auto) Absolute Neuts (auto) Absolute Nucleated RBC Nucleated RBC % Puncture Site ABG pH ABG pCO2 ABG pO2 ABG PO2/FiO2 Ratio ABG HCO3 ABG O2 Saturation ABG O2 Content ABG Base Excess A-a Gradient Oxyhemoglobin Carboxyhemoglobin Methemoglobin Reduced Hemoglobin Total Hemoglobin O2 Delivery Device O2 Liters/Min Minute Volume Vent Rate Vent Mode FiO2 Tidal Volume PEEP Peak Inspir Pressure Pressure Support Sodium Potassium Chloride Carbon Dioxide Anion Gap BUN Creatinine Estim Creat Clear Calc Estimated GFR Glucose POC Capillary Glucose 177 H 142 H Calcium Phosphorus Magnesium Total Bilirubin AST ALT Alkaline Phosphatase Total Protein Albumin Vancomycin Trough 18.1 01/26/25 01/26/25 04:40 07:29 WBC 16.0 H RBC 2.80 L Hgb 8.9 L Hct 28.0 L MCV 100.0 MCH 31.8 MCHC 31.8 L RDW 15.1 H Plt Count 416 H MPV 10.4 Immature Gran % (Auto) 0.9 H Neut % (Auto) 83.9 H Lymph % (Auto) 10.3 L Roberts % (Auto) 4.4 Eos % (Auto) 0.3 Baso % (Auto) 0.2 Lymph # (Auto) 1.65 Roberts # (Auto) 0.7 H Eos # (Auto) 0.0 Baso # (Auto) 0.0 Abs Immat Gran (auto) 0.14 H Absolute Neuts (auto) 13.4 H Absolute Nucleated RBC 0.000 Nucleated RBC % 0.0 Puncture Site ABG pH ABG pCO2 ABG pO2 ABG PO2/FiO2 Ratio ABG HCO3 ABG O2 Saturation ABG O2 Content ABG Base Excess A-a Gradient Oxyhemoglobin Carboxyhemoglobin Methemoglobin Reduced Hemoglobin Total Hemoglobin O2 Delivery Device O2 Liters/Min Minute Volume Vent Rate Vent Mode FiO2 Tidal Volume PEEP Peak Inspir Pressure Pressure Support Sodium 145 Potassium 3.3 L Chloride 112 H Carbon Dioxide 30 Anion Gap 3 L BUN 23 H Creatinine 0.44 L Estim Creat Clear Calc 105 Estimated GFR > 60 Glucose 136 H POC Capillary Glucose 140 H Calcium 8.3 L Phosphorus 2.8 Magnesium 2.2 Total Bilirubin 0.8 AST 45 H ALT 35 Alkaline Phosphatase 61 Total Protein 5.5 L Albumin 2.4 L Vancomycin Trough Quality VTE Prophylaxis VTE prophylaxis: pharmacologic ordered
[2025-01-26] MEDS: ENOXAPARIN 40 MG/0.4 ML SYRINGE SUB-Q (09:30)
[2025-01-26] MEDS: PANTOPRAZOLE SODIUM IV 40 MG VIAL IV PUSH (09:30)
[2025-01-26] MEDS: KCL 40 MEQ/WATER 100 ML 100 ML 25 ML IVPB (09:30)
[2025-01-26 10:32] LABS: Total Triiodothyronine (T3) 0.57 NG/ML (0.82-1.58)
[2025-01-26 10:34] LABS: Free T4 Free Thyroxine. 1.44 ng/dL (0.78-2.19)
--- NOTE | 2025-01-26 10:47 | P.CDI_ITS ---
CDI Query Clarification Request Encephalopathy has been documented. Please clarify type of encephalopathy: * Metabolic * Toxic * Hepatic * Hypertensive * Other * Unable to Determine The medical chart reflects the following: This is a 54-year-old female patient with a past medical history type 2 diabetes on metformin, Jardiance and Ozempic. Unknown other history though medication reconciliation was able to be completed through patient family. Patient is admitted for acute hypoxic respiratory failure with DKA. Patient was on a 7 day cruise with her daughter with stops in [facility], [place] and [facility]. Approximately 4 days ago began to have a cough. After the cough started, patient complained of worsening sore throat. She got to the point about 2 days ago when she quit eating or drinking anything. Her daughter states she has continued to take her medications while not eating or drinking anything including her Jardiance and metformin. Today patient was having trouble breathing but did not want to go to a hospital in [place] so she flew home and family brought her straight to ER from the airport. Patient was very tachypneic and extremely weak. She was intubated to protect airway and ease work of breathing. Initial labs with mild hyperglycemia but severely depleted CO2. ABG showed metabolic acidosis with ineffective respiratory compensation. WBC 10.3 with 23% bandemia. CXR showed pneumonia. Patient started on Cefepime, doxycycline and vancomycin for septic shock with altered mental status, fever, tachycardia, tachypnea. Lactic acid was normal at 1.0. CRP >45, Beta- hydroxybutyrate 7.79, urine with 3+ glucose and 3+ ketones. Viral swab was positive for Influenza A and patient was started on Tamiflu in ER. Procalcitonin was 7.4 ng/mL which is highly suggestive of systemic bacterial infection. Antibiotics will be continued. Ketoacidosis likely multifactorial including starvation, dehydration, diabetic and Jardiance related. Insulin drip started after IV fluid resuscitation. Initial Anion Gap calculated at 31 in ER, down to 12 by 2300. Insulin drip turned off and LR infusion at 75 mL/hr started. Q4H fingerstick glucose with SSI and Lantus 12 units given. Patient has been on 1 unit/hr of insulin drip since around 1700. She did get one amp of D50 to keep glucose up enough to finish closing anion gap. CO2 remains low but much improved. Potassium will be replaced by OG tube. Will hold all diabetic medications except insulin right now. (11) Encephalopathy: Code(s): G93.40 - Encephalopathy, unspecified Status: Acute Assessment and Plan: Improving. Part delirium. Will get her up in a chair, PT OT, IS (1) Septic shock: Code(s): A41.9 - Sepsis, unspecified organism; R65.21 - Severe sepsis with septic shock Status: Acute Assessment and Plan: Patient presented with bilateral lower lobe infiltrates, pneumonia, hypotension overnight requiring central line placement on 01/19, and Levophed -continue Levophed to maintain SBP> 90 mmHg, as daughter stateThat patient has normal SBP is in the 80s to 90s -01/19: switch Levophed to phenylephrine as patient is tachycardic, will wean Levophed to off -elevated CRP and procalcitonin on admission -remains febrile, continue Tylenol -this could be related to influenza A and pneumonia -01/20: currently off all pressors -01/18: Blood cultures growing MSSA -01/19: Sputum cultures obtained and pending -status post IV fluids and albumin with improvement in heart -lactic acid remains normal -01/20: Repeat blood cultures negative so far -On doxycycline (01/18) -01/21: started on Cefazolin and DC cefepime, vancomycin (01/21) 1625: Echocardiogram Summary 1. Left ventricular chamber dimension is normal. 2. Left ventricular systolic function is normal, estimated at 60-65. 3. The left ventricular diastolic function is grade I diastolic dysfunction. 4. Right ventricular chamber dimension is mildly enlarged. 5. Right ventricular systolic function is normal. 6. Right atrial chamber dimension is mildly enlarged. 7. There is mild to moderate tricuspid valve regurgitation. (2) Acute hypoxic respiratory failure: Code(s): J96.01 - Acute respiratory failure with hypoxia Status: Acute Assessment and Plan: 01/18: Patient presented the ED with shortness of breath, weakness, diabetic ketoacidosis, pneumonia 01/18: Intubated in the ED for airway protection and hypoxia -remains on CMV mode of ventilation, peep of 5, 30% FiO2, titrate FiO2 to maintain O2 sat > 92% -chest x-ray and ABGs reviewed, ventilator adjusted - CTA chest on admission showed bilateral lower lobe pneumonia - OFF sedation since 01/21 am -positive for influenza A, On Tamiflu 01/15: CTA chest IMPRESSION: 1. No pulmonary embolism. 2. Bilateral pneumonia in the lower lobes. Pneumonia in the lingula. Minimal changes of pneumonia in the right middle lobe. Pneumonia in the right upper lobe posteriorly. Follow-up to resolution is advised. (3) PNA (pneumonia): Code(s): J18.9 - Pneumonia, unspecified organism Status: Acute Assessment and Plan: Bilateral lower lobe pneumonia, continue antibiotics as above -currently intubated on mechanical ventilation (4) DKA (diabetic ketoacidosis): Code(s): E11.10 - Type 2 diabetes mellitus with ketoacidosis without coma Status: Acute Assessment and Plan: Patient presented with elevated beta hydroxybutyrate, anion gap metabolic acidosis, UA showed ketones, glucose -likely euglycemic diabetic ketoacidosis as patient was still taking Jardiance and metformin -this given 3 L IV fluids since admission, started on insulin infusion per DKA protocol -overnight patient was transition to long-acting insulin Lantus, and sliding scale insulin with Accu-Chek -continue to monitor -continue Lantus (5) Flu: Code(s): J11.1 - Influenza due to unidentified influenza virus with other respiratory manifestations Status: Acute Assessment and Plan: Patient was tested positive for influenza A -continue Tamiflu (6) Chronic low blood pressure: Code(s): I95.89 - Other hypotension Status: Acute Assessment and Plan: Patient has chronic low blood pressures, according the daughter systolic blood pressures range in the 80s to 90s
--- NOTE | 2025-01-26 11:15 | PCFNICU ---
ICU Rounding Note: Pt current nutrition is DBCC. Last recorded weight is 67.4 kg. Bowel Motility:+BM reported 01/25 Labs Reviewed:Glu 136, K 3.2, Cr 0.44, BUN 23, Hct 28.0, Hgb 8.9 Meds Noted:Protonix, Lantus, Lovenox Skin: WNL Additional Notes: Patient has been extubated. MBS today, passed. Diet order has upgraded to DBCC diet. Agree with diet orders. Following daily in ICU rounds. Will monitor weight, labs, skin, diet orders, meds, tube feeding tolerance every Saturday and Saturday.
--- NOTE | 2025-01-26 11:36 | P.PNNP_ITS ---
Progress Note: A&P Assessment and Plan (1) Hypernatremia: Code(s): E87.0 - Hyperosmolality and hypernatremia Status: Acute Assessment and Plan: * sodium relatively stable * as noted by trend of sodium since 01/20: * 146 (01/20) --> 149 (01/21) --> 150 (01/22) * given presentation on admission, suspect due to aggressive IVF resuscitation (due to hypotension) in conjunction with insensible free water losses given her acute infection and high fevers * off free water flushes since extubated * s/p D5W IVFs for a total of 1 Liter x 2 * given oral intake, she hopefully should be able to drink enough free water to maintain her sodium... * follow repeat sodium levels (2) Acute hypoxic respiratory failure: Code(s): J96.01 - Acute respiratory failure with hypoxia Status: Acute Assessment and Plan: * resolved/resolving -- extubated (01/25) * intubated in ER due to airway protection and hypoixia * imaging noted: * CXR - Bilateral basal pneumonia. Pulmonary edema cannot be excluded although less likely * CTof chest - no pulmonary embolism and bilateral pneumonia in the lower lobes; pneumonia in the lingula; minimal changes of pneumonia in the right middle lobe.; pneumonia in the right upper lobe posteriorly * positive of influenza A * continue bronchodilators and steroids * follow culture data * on antibiotics (3) Septic shock: Code(s): A41.9 - Sepsis, unspecified organism; R65.21 - Severe sepsis with septic shock Status: Acute Assessment and Plan: * resolving/resolved * initially on levophed and then phenylephrine * currently off all vasopressor therapy * elevated CRP and procalcitonin noted * presumably secondary to influenza A and pneumonia * blood cultures with MSSA * on antibiotics (4) PNA (pneumonia): Code(s): J18.9 - Pneumonia, unspecified organism Status: Acute Assessment and Plan: * as noted by admission imaging * weaned off ventilator support * follow respiratory status * on antibiotics (5) Flu: Code(s): J11.1 - Influenza due to unidentified influenza virus with other respiratory manifestations Status: Acute Assessment and Plan: * positive testing in ER for influenza A * completed course of Tamiflu (6) DKA (diabetic ketoacidosis): Code(s): E11.10 - Type 2 diabetes mellitus with ketoacidosis without coma Status: Acute Assessment and Plan: * noted presentation with elevated beta hydroxybutyrate, anion gap metabolic acidosis, UA showed ketones, glucose * suspect euglycemic diabetic ketoacidosis as patient was still taking Jardiance and metformin * off insulin gtt and transitioned to SSI + Lantus * glycemic control per intensivisit/hospitalist Not much else to add -- will continue to follow from a distance. L Subjective Date/time seen: 01/26/25 11:36 Interval history: Follow-up for acute hypernatremia. Extubated yesterday and remains on supplemental oxygen at this time; sodium remains relatively stable; passed MBS and diet being advanced; no other acute complaints voiced other than dry mouth/lips; no other acute issues/events overnight or earlier this morning. Exam 2 Narrative: General: WD/WN middle aged female and in NAD Heart: tachcardic, normal S1 and S2; no rub Lungs: coarse breath sounds Abdomen: soft, nontender, nondistended, decreased bowel sounds Extremities: no cyanosis or clubbing; no edema Skin: no nodules Objective Data Vital Signs Vital Signs: Vital Signs Temp Pulse Resp BP Pulse Ox O2 Del Method O2 Flow Rate 01/26/25 10:48 Nasal Cannula 4 01/26/25 10:00 104 H 01/26/25 10:00 104 H 25 H 120/73 95 01/26/25 09:31 105 H 01/26/25 08:00 109 H 01/26/25 08:00 110 H 27 H 94 Nasal Cannula 4 01/26/25 08:00 98.5 F 110 H 27 H 120/77 94 01/26/25 06:00 108 H 23 H 128/73 90 01/26/25 06:00 104 H 01/26/25 04:00 98.2 F 106 H 25 H 123/71 98 01/26/25 04:00 107 H 01/26/25 04:00 94 Nasal Cannula 4 01/26/25 02:50 105 H 22 H 01/26/25 02:30 109 H 01/26/25 02:00 110 H 27 H 120/77 94 01/26/25 02:00 110 H 01/26/25 00:00 110 H 01/26/25 00:00 97.9 F 107 H 26 H 124/76 94 01/26/25 00:00 94 Nasal Cannula 4 01/25/25 22:00 108 H 18 122/72 92 01/25/25 22:00 108 H 01/25/25 21:09 103 H 19 01/25/25 20:58 113 H 01/25/25 20:00 98.5 F 112 H 26 H 133/79 92 01/25/25 20:00 112 H 01/25/25 20:00 92 Nasal Cannula 4 Intake/Output Intake/Output: Intake & Output 01/23/25 01/24/25 01/25/25 01/26/25 23:59 23:59 23:59 23:59 Intake Total 2997.1 3356 3461 600 Output Total 3200 2600 2475 1000 Balance -202.9 756 986 -400 Meds/Results Medications: Active Medications Generic Name Dose Route Start Last Admin Trade Name Freq PRN Reason Stop Dose Admin Acetaminophen 650 mg 01/18/25 20:28 01/24/25 08:23 Acetaminophen Elixir 325 Mg/10.15 Ml Udc FEED TUBE 650 mg Q4H PRN Administration Mild Pain (1-3) or Fever Atorvastatin Calcium 20 mg 01/19/25 18:00 01/26/25 17:19 Atorvastatin 20 Mg Tablet PO 20 mg QPM SESAR Administration Dextrose 12.5 gm 01/18/25 23:15 Dextrose 50% 25 Gm/50 Ml Syringe IV PUSH PRN PRN Hypoglycemia Protocol Enoxaparin Sodium 40 mg 01/20/25 09:00 01/26/25 09:30 Enoxaparin 40 Mg/0.4 Ml Syringe SUB-Q 40 mg DAILY SESAR Administration Estradiol 1 mg 01/19/25 09:00 Estradiol 1 Mg Tablet PO DAILY SESAR Glucagon 1 mg 01/18/25 23:15 Glucagon For Inj 1 Mg Vial IM PRN PRN Hypoglycemia Protocol Glucose 15 gm 01/18/25 23:15 Glucose Oral Gel 15 Gm Of Glucse In 37.5 Gm Tube PO PRN PRN Hypoglycemia Protocol Dextrose 1,000 mls @ 100 mls/hr 01/18/25 23:15 Dextrose 5% 1,000 Ml IVPB PRN PRN Hypoglycemia Protocol Meropenem 1 gm in 100 mls @ 200 mls/hr 01/23/25 14:00 01/26/25 16:00 IVPB 200 mls/hr Q8HR SESAR Administration Insulin Aspart 3 - 6 units 01/24/25 10:15 01/26/25 13:59 Insulin Aspart (*Bkc) 100 Units/Ml SUB-Q Not Given Q4H [facility] Protocol Insulin Glargine 10 units 01/25/25 21:00 01/25/25 20:58 Insulin Glargine (*Bkc) 100 Units/Ml SUB-Q 10 units HS SESAR Administration Ipratropium [place] 0.5 mg 01/26/25 07:34 Ipratropium Br 0.02% Inh Soln 0.5 Mg/2.5 Ml Vial INHALATION Q6HRT PRN Wheezing Levalbuterol HCl 0.63 mg 01/26/25 07:34 Levalbuterol Neb 1.25 Mg/3 Ml INHALATION Q6HRT PRN Wheezing Metoprolol Tartrate 25 mg 01/19/25 09:00 01/25/25 07:58 Metoprolol Tartrate 25 Mg Tablet PO 25 mg Q12HR SESAR Administration Ondansetron HCl 4 mg 01/19/25 01:20 Ondansetron Inj 4 Mg/2 Ml Vial IV PUSH Q4H PRN Nausea And Vomiting Pantoprazole Sodium 40 mg 01/20/25 09:00 01/26/25 09:30 Pantoprazole Sodium Iv 40 Mg Vial IV PUSH 40 mg QAM SESAR Administration Polyethylene Glycol 17 gm 01/24/25 10:15 Polyethylene Glycol 3350 17 Gm Powd.Pack PO QAM PRN Constipation Senna/Docusate Sodium 1 tab 01/24/25 10:20 01/26/25 09:31 Senna/Docusate Sodium Tablet PO Not Given Q12HR SESAR Sodium Chloride 10 ml 01/19/25 06:00 01/26/25 17:19 Central Line Flush IV PUSH 10 ml Q8HR SESAR Administration Sodium Chloride 20 ml 01/19/25 04:13 01/25/25 05:16 Central Line Flush IV PUSH 20 ml PRN PRN Administration after blood draws Spironolactone 100 mg 01/19/25 09:00 Spironolactone 50 Mg Tablet PO Q12HR [facility] Radiology Results: ITS Impressions Chest CTA 01/18/25 15:25 IMPRESSION: 1. No pulmonary embolism. 2. Bilateral pneumonia in the lower lobes. Pneumonia in the lingula. Minimal changes of pneumonia in the right middle lobe. Pneumonia in the right upper lobe posteriorly. Follow-up to resolution is advised. Head CT 01/22/25 10:18 Impression: No significant abnormality seen. Abdomen X-Ray 01/23/25 15:14 IMPRESSION: Orogastric tube in good position and ready for immediate use. Chest X-Ray 01/26/25 05:29 Impression: Worsening bibasilar and bilateral perihilar airspace disease with small pleural effusions. Findings suggest worsening pulmonary edema/atelectasis. Correlate clinically for pneumonia. Right IJ line in place. Labs Labs: Laboratory Tests 01/26/25 04:40 01/26/25 04:40 Calcium 8.3 L Phosphorus 2.8 Magnesium 2.2 Total Bilirubin 0.8 AST 45 H ALT 35 Alkaline Phosphatase 61 Total Protein 5.5 L Albumin 2.4 L Microbiology 01/24/25 09:08 Sputum Sputum Culture - Preliminary Staphylococcus aureus 01/20/25 07:25 Blood Blood Culture - Final 01/20/25 07:40 Blood Blood Culture - Final
[2025-01-26 11:37] LABS: Glucose Point of Care 151 mg/dl (65-105)
--- NOTE | 2025-01-26 14:19 | PCSTNOTE ---
Please refer to the Modified Barium Swallow (MBS) Evaluation in the EMR. The above pt was seen for an MBS due to recent bedside swallow evaluation revealing overt s/s of aspiration; pt was admitted with PNA, flu like symptoms and was intubated x7-8 days. Bedside swallow evaluation was completed shortly after extubation. The pt was alert, oriented & able to follow commands. She stated that even prior to admit she felt like she had some difficulty with foods getting stuck. Vocal quality was good; natural dentition is in good condition. The pt was seated for a lateral view and was presented with 5 ml thin liquids via a spoon, pudding consistency barium via a spoon, cracker pieces coated with barium pudding via a spoon, and uncontrolled thin liquids via a cup and a straw. The oral stages were WNL; no leakage, pocketing or residue was exhibited. During the pharyngeal stage the following occurred: with the first test trial of the 5 ml pt exhibited aspiration during the swallow indicative of reduced laryngeal closure. Pt coughed but was not able to clear the aspirate. With subsequent trials of 5 ml thin liquids using the chin tuck, no further aspiration occurred but mild vallecular residue was noted indicative of reduced tongue base retraction. Pt was able to I dry swallow which cleared residual. With the pudding and cracker trials(using the chin tuck), mild/mod vallecular residue was exhibited but again cleared with I dry swallows. For the uncontrolled trials of thin liquid, the pt continued to utilize the chin tuck. Flash laryngeal penetration was exhibited but it was cleared. After the first initial trial and instance of trace aspiration, no further instances occurred. Impression and recommendations: mild dysphagia; using the chin tuck no further instances of aspiration occurred; pt I dry swallows and clears all residual. Regular diet with regular liquids using the chin tuck; ST to start dysphagia therapy and ensure knowledge of chin tuck and extra dry swallows.
[2025-01-26] MEDS: ATORVASTATIN 20 MG TABLET PO (17:19)
[2025-01-26 20:04] LABS: Glucose Point of Care 161 mg/dl (65-105)
[2025-01-26] MEDS: INSULIN GLARGINE (*BKC) 100 UNITS/ML 10 UNITS SUB-Q (20:41)
[2025-01-26] MEDS: METOPROLOL TARTRATE 25 MG TABLET PO (21:45)
[2025-01-27] VITALS (22 sets, daily range): BP systolic 98–173; BP diastolic 54–72; PULSE 77–118; RESP 16–20; TEMP 36.2–37.1; O2SAT 91–99
[2025-01-27 02:11] LABS: Glucose Point of Care 116 mg/dl (65-105)
[2025-01-27 04:15] LABS: Basophils Absolute Auto 0.1 K/mm3 (0.0-0.1); Basophils Percent Auto 0.3 % (0.2-1.2); Eosinophils Absolute Auto 0.1 K/mm3 (0-0.3); Eosinophils Percent Auto 0.6 % (0-4.4); Hematocrit 32.7 % (37.0-47.0); Hemoglobin 10.3 g/dL (12.0-15.0); Immature Granulocyte Absolute 0.12 K/mm3 (0.00-0.031); Immature Granulocyte Percent A 0.7 % (0-0.5); Lymphocytes Absolute Auto 2.05 K/mm3 (0.9-3.2); Lymphocytes Percent Auto 11.7 % (18.3-44.2); Mean Corpuscular HGB Conc 31.5 g/dl (32-36); Mean Corpuscular Hemoglobin 32.1 pg (26-34); Mean Corpuscular Volume 101.9 fl (80-100); Mean Platelet Volume 9.9 fl (7.4-10.4); Monocytes Absolute Auto 0.5 K/mm3 (0.1-0.6); Neutrophils Absolute Auto 14.6 K/mm3 (1.3-6.7); Neutrophils Percent Auto 83.7 % (45.5-73.1); Platelet Count Result 470 k/mm3 (150-375); Red Blood Count 3.21 M/mm3 (4.2-5.4); Red Cell Distribution Width 14.7 % (11.5-14.5); White Blood Count 17.5 K/mm3 (4.5-10.0)
[2025-01-27 04:36] LABS: Alanine Aminotransferase 40 U/L (6-35); Albumin Level 2.5 g/dL (3.5-5.1); Alkaline Phosphatase 62 U/L (38-126); Anion Gap 5 mmol/L (4-12); Aspartate Amino Transferase 52 U/L (14-36); Bilirubin,Total 0.9 mg/dL (0.2-1.3); Blood Urea Nitrogen 15 mg/dL (7-17); Calcium 8.4 mg/dL (8.4-10.2); Carbon Dioxide 24 mmol/L (22-30); Chloride 108 mmol/L (98-107); Estimated CRCL calculation 112 ml/min; Estimated Glomerular Filt Rate > 60; Glucose 123 mg/dL (65-110); Magnesium 2.2 mg/dL (1.6-2.3); Potassium 3.3 mmol/L (3.4-5.0); Sodium 137 mmol/L (137-145); Total Protein 5.6 g/dL (6.3-8.2)
[2025-01-27] MEDS: CENTRAL LINE FLUSH 10 ML IV PUSH ×2 (06:05→21:02)
[2025-01-27] MEDS: MEROPENEM 1 GM/NS 100 ML 1 GM/100 ML BAG IVPB ×2 (06:05→18:18)
[2025-01-27 07:28] LABS: Glucose Point of Care 118 mg/dl (65-105)
[2025-01-27] MEDS: estradioL 1 MG TABLET PO (09:51)
[2025-01-27] MEDS: ENOXAPARIN 40 MG/0.4 ML SYRINGE SUB-Q (09:51)
[2025-01-27] MEDS: POTASSIUM CHLORIDE 20 MEQ ER TABLET 40 MEQ PO (09:51)
[2025-01-27] MEDS: PANTOPRAZOLE SODIUM IV 40 MG VIAL IV PUSH (09:52)
[2025-01-27] MEDS: METOPROLOL TARTRATE 25 MG TABLET PO ×2 (09:52→20:57)
[2025-01-27 11:25] LABS: Glucose Point of Care 130 mg/dl (65-105)
--- NOTE | 2025-01-27 13:10 | P.PNIM_ITS ---
Progress Note: A&P Assessment and Plan (1) Septic shock: Code(s): A41.9 - Sepsis, unspecified organism; R65.21 - Severe sepsis with septic shock Status: Acute Assessment and Plan: Patient presented with bilateral lower lobe infiltrates, pneumonia, hypotension overnight requiring central line placement on 01/19, and Levophed -01/20: currently off all pressors -01/18: Blood and sputum cultures growing MSSA -01/20 and 01/23: Repeat blood cultures negative so far -status post doxycycline for 5 days -01/21: started on Cefazolin and DC cefepime, vancomycin (01/21) -patient received a course of Solu-Medrol for 4 doses, wheezing has improved -01/23: Patient again febrile with a T-max of 101.3?, thick yellow colored secretions from the ET tube, white blood cell count trending up. FiO2 requirements going up, Will repeat blood cultures, -01/23: DC cefazolin. Started vancomycin and meropenem (01/23) Fever curve much improved, patient is afebrile, improvement in WBC 1625: Echocardiogram Summary 1. Left ventricular chamber dimension is normal. 2. Left ventricular systolic function is normal, estimated at 60-65. 3. The left ventricular diastolic function is grade I diastolic dysfunction. 4. Right ventricular chamber dimension is mildly enlarged. 5. Right ventricular systolic function is normal. 6. Right atrial chamber dimension is mildly enlarged. 7. There is mild to moderate tricuspid valve regurgitation. (2) Acute hypoxic respiratory failure: Code(s): J96.01 - Acute respiratory failure with hypoxia Status: Acute Assessment and Plan: 01/18: Patient presented the ED with shortness of breath, weakness, diabetic ketoacidosis, pneumonia. Intubated in the ED for airway protection and hypoxia 01/25 extubated -chest x-ray and ABGs reviewed, - CTA chest on admission showed bilateral lower lobe pneumonia -positive for influenza A, On Tamiflu -01/23: bilateral diffuse wheezing, continue bronchodilators and received a course Solu-Medrol -wheezing which improved this morning, Continue supplemental oxygen Incentive spirometry 01/15: CTA chest IMPRESSION: 1. No pulmonary embolism. 2. Bilateral pneumonia in the lower lobes. Pneumonia in the lingula. Minimal changes of pneumonia in the right middle lobe. Pneumonia in the right upper lobe posteriorly. Follow-up to resolution is advised. (3) PNA (pneumonia): Code(s): J18.9 - Pneumonia, unspecified organism Status: Acute Assessment and Plan: Bilateral lower lobe pneumonia, continue antibiotics as above -currently intubated on mechanical ventilation (4) DKA (diabetic ketoacidosis): Code(s): E11.10 - Type 2 diabetes mellitus with ketoacidosis without coma Status: Acute Assessment and Plan: Patient presented with elevated beta hydroxybutyrate, anion gap metabolic acidosis, UA showed ketones, glucose -likely euglycemic diabetic ketoacidosis as patient was still taking Jardiance and metformin -this given 3 L IV fluids since admission, started on insulin infusion per DKA protocol -overnight patient was transition to long-acting insulin Lantus, and sliding scale insulin with Accu-Chek -continue to monitor -blood sugars in stable, continue Accu-Cheks, sliding scale insulin and Lantus (5) Flu: Code(s): J11.1 - Influenza due to unidentified influenza virus with other respiratory manifestations Status: Acute Assessment and Plan: Patient was tested positive for influenza A -status post course of Tamiflu (6) Chronic low blood pressure: Code(s): I95.89 - Other hypotension Status: Acute Assessment and Plan: Patient has chronic low blood pressures, according the daughter systolic blood pressures range in the 80s to 90s -blood pressures remain stable off pressors (7) Sinus tachycardia: Code(s): R00.0 - Tachycardia, unspecified Status: Acute Assessment and Plan: Has a history of chronic sinus tachycardia for which she is on metoprolol at home, -patient's heart rate is in the 100-110 which is her baseline -01/23: Restarted home metoprolol Change bronchodilators p.r.n. Check thyroid function test (8) PCOS (polycystic ovarian syndrome): Code(s): E28.2 - Polycystic ovarian syndrome Status: Acute Assessment and Plan: Hold spironolactone (9) Hyperlipidemia: Code(s): E78.5 - Hyperlipidemia, unspecified Status: Acute Assessment and Plan: continue Atorvastatin (10) Electrolyte imbalance: Code(s): E87.8 - Other disorders of electrolyte and fluid balance, not elsewhere classified Status: Acute Assessment and Plan: Replace potassium (11) Encephalopathy: Code(s): G93.40 - Encephalopathy, unspecified Status: Acute Assessment and Plan: Improving. Part delirium. Will get her up in a chair, PT OT, IS (12) Right foot drop: Code(s): M21.371 - Foot drop, right foot Status: Acute Assessment and Plan: Acute finding Ordered MRI cervical, thoracic and lumbar Consulted neurology and Neurosurgery Evidence of bowel incontinence Consider AFO EMG after Neurology recommendation PT OT Plan DVT prophylaxis: Lovenox Stress ulcer prophylaxis: Protonix Nutrition: Swallow study ordered and pending Code Status: Full code Subjective Date/time seen: 01/27/25 13:10 Interval history: Evidence of a right footdrop. No previous history of right footdrop. Patient reports its a new finding while she was in ICU. Ordered cervical, thoracic, lumbar MRI. Consulted Neurology and Neurosurgery. Patient reports of bowel incontinence yesterday night. Review of Systems Review of Systems: All systems reviewed & are unremarkable except as noted in HPI and below (HPI) ROS unobtainable: Yes unobtainable due to endotracheal tube, unobtainable due to medical condition and unobtainable due to mental status Exam Narrative: General: Awake alert in no acute distress HEENT:? Pupils small and reactive bilaterally, sclera is clear, Neck:? Supple, right IJ central line in place Respiratory:? Coarse breath sounds bilaterally, decreased at bases, bilateral w heezing, no tachypnea use of accessory muscles or respiratory distress Cardiac:? Sinus tachycardia, S1-S2 was normal, no murmurs Abdomen:? Soft, nontender, nondistended, hypoactive bowel sounds Extremities:? No edema, palpable pedal pulses Neuro:? Intubated, AO x3 follows simple commands in all extremities carries conversation but is little confused and goes tangential when answering questions Skin:? No lesions noted Psych:? Normal speech and affect Objective Data Vital Signs Vital Signs: Vital Signs - 24 hr 01/26/25 14:00 01/26/25 16:00 01/26/25 16:00 Temperature 98 F Pulse Rate 110 H 109 H 109 H Respiratory Rate 24 H 16 Blood Pressure 128/77 Pulse Oximetry 98 94 Oxygen Delivery Nasal Cannula Oxygen Flow Rate 4 Fraction of Inspired Oxygen 40 01/26/25 16:00 01/26/25 18:00 01/26/25 20:00 Temperature 98.1 F Pulse Rate 109 H 114 H 109 H Respiratory Rate 18 Blood Pressure 129/69 Pulse Oximetry 96 Oxygen Delivery Oxygen Flow Rate Fraction of Inspired Oxygen 01/26/25 20:00 01/26/25 20:00 01/26/25 22:00 Temperature Pulse Rate 113 H 106 H Respiratory Rate Blood Pressure Pulse Oximetry 96 Oxygen Delivery Nasal Cannula Oxygen Flow Rate 4 Fraction of Inspired Oxygen 01/26/25 23:55 01/27/25 00:00 01/27/25 00:00 Temperature 98.7 F Pulse Rate 108 H 104 H Respiratory Rate 18 Blood Pressure 131/65 Pulse Oximetry 96 96 Oxygen Delivery Nasal Cannula Oxygen Flow Rate 4 Fraction of Inspired Oxygen 01/27/25 02:00 01/27/25 03:56 01/27/25 04:00 Temperature 98.7 F Pulse Rate 92 95 Respiratory Rate 18 Blood Pressure 113/58 L Pulse Oximetry 94 94 Oxygen Delivery Nasal Cannula Oxygen Flow Rate 4 Fraction of Inspired Oxygen 01/27/25 04:00 01/27/25 06:00 01/27/25 07:51 Temperature 98.0 F Pulse Rate 93 100 98 Respiratory Rate 18 Blood Pressure 139/70 Pulse Oximetry 92 Oxygen Delivery Oxygen Flow Rate Fraction of Inspired Oxygen 01/27/25 09:52 01/27/25 12:05 Temperature 98.3 F Pulse Rate 115 H 106 H Respiratory Rate 20 Blood Pressure 162/68 H Pulse Oximetry 99 Oxygen Delivery Oxygen Flow Rate Fraction of Inspired Oxygen Intake/Output Intake/Output: Intake & Output 01/24/25 01/25/25 01/26/25 01/27/25 23:59 23:59 23:59 23:59 Intake Total 3356 3461 800 150 Output Total 2600 2475 1400 900 Balance 756 792 -679 -342 Meds/Results Medications: Active Medications Generic Name Dose Route Start Last Admin Trade Name Freq PRN Reason Stop Dose Admin Acetaminophen 650 mg 01/18/25 20:28 01/24/25 08:23 Acetaminophen Elixir 325 Mg/10.15 Ml Udc FEED TUBE 650 mg Q4H PRN Administration Mild Pain (1-3) or Fever Atorvastatin Calcium 20 mg 01/19/25 18:00 01/26/25 17:19 Atorvastatin 20 Mg Tablet PO 20 mg QPM SESAR Administration Dextrose 12.5 gm 01/27/25 05:42 Dextrose 50% 25 Gm/50 Ml Syringe IV PUSH PRN PRN Hypoglycemia Protocol Enoxaparin Sodium 40 mg 01/20/25 09:00 01/27/25 09:51 Enoxaparin 40 Mg/0.4 Ml Syringe SUB-Q 40 mg DAILY SESAR Administration Estradiol 1 mg 01/19/25 09:00 01/27/25 09:51 Estradiol 1 Mg Tablet PO 1 mg DAILY SESAR Administration Glucagon 1 mg 01/27/25 05:42 Glucagon For Inj 1 Mg Vial IM PRN PRN Hypoglycemia Protocol Glucose 15 gm 01/27/25 05:42 Glucose Oral Gel 15 Gm Of Glucse In 37.5 Gm Tube PO PRN PRN Hypoglycemia Protocol Meropenem 1 gm in 100 mls @ 200 mls/hr 01/23/25 14:00 01/27/25 06:05 IVPB 01/30/25 06:29 200 mls/hr Q8HR SESAR Administration Dextrose 1,000 mls @ 100 mls/hr 01/27/25 05:42 Dextrose 5% 1,000 Ml IVPB PRN PRN Hypoglycemia Protocol Insulin Aspart 3 - 6 units 01/27/25 06:30 01/27/25 05:52 Insulin Aspart (*Bkc) 100 Units/Ml SUB-Q Not Given ACHS [facility] Protocol Insulin Glargine 10 units 01/25/25 21:00 01/26/25 20:41 Insulin Glargine (*Bkc) 100 Units/Ml SUB-Q 10 units HS SESAR Administration Ipratropium [place] 0.5 mg 01/26/25 07:34 Ipratropium Br 0.02% Inh Soln 0.5 Mg/2.5 Ml Vial INHALATION Q6HRT PRN Wheezing Levalbuterol HCl 0.63 mg 01/26/25 07:34 01/26/25 22:37 Levalbuterol Neb 1.25 Mg/3 Ml INHALATION 0.63 mg Q6HRT PRN Administration Wheezing Linezolid 600 mg 01/30/25 09:00 Linezolid 600 Mg Tablet PO 02/03/25 21:01 Q12HR SESAR Metoprolol Tartrate 25 mg 01/26/25 21:45 01/27/25 09:52 Metoprolol Tartrate 25 Mg Tablet PO 25 mg Q12HR SESAR Administration Ondansetron HCl 4 mg 01/19/25 01:20 Ondansetron Inj 4 Mg/2 Ml Vial IV PUSH Q4H PRN Nausea And Vomiting Pantoprazole Sodium 40 mg 01/28/25 09:00 Pantoprazole 40 Mg Tablet PO QAM SESAR Polyethylene Glycol 17 gm 01/24/25 10:15 Polyethylene Glycol 3350 17 Gm Powd.Pack PO QAM PRN Constipation Senna/Docusate Sodium 1 tab 01/24/25 10:20 01/27/25 09:51 Senna/Docusate Sodium Tablet PO Not Given Q12HR SESAR Sodium Chloride 10 ml 01/19/25 06:00 01/27/25 06:05 Central Line Flush IV PUSH 10 ml Q8HR SESAR Administration Sodium Chloride 20 ml 01/19/25 04:13 01/25/25 05:16 Central Line Flush IV PUSH 20 ml PRN PRN Administration after blood draws Spironolactone 100 mg 01/19/25 09:00 Spironolactone 50 Mg Tablet PO Q12HR [facility] Radiology Results: ITS Impressions Chest CTA 01/18/25 15:25 IMPRESSION: 1. No pulmonary embolism. 2. Bilateral pneumonia in the lower lobes. Pneumonia in the lingula. Minimal changes of pneumonia in the right middle lobe. Pneumonia in the right upper lobe posteriorly. Follow-up to resolution is advised. Head CT 01/22/25 10:18 Impression: No significant abnormality seen. Abdomen X-Ray 01/23/25 15:14 IMPRESSION: Orogastric tube in good position and ready for immediate use. Chest X-Ray 01/26/25 05:29 Impression: Worsening bibasilar and bilateral perihilar airspace disease with small pleural effusions. Findings suggest worsening pulmonary edema/atelectasis. Correlate clinically for pneumonia. Right IJ line in place. Modified Barium Swallow 01/26/25 13:30 IMPRESSION: Pharyngeal dysphagia with laryngeal penetration and one episode of aspiration on the initial trial. Please correlate with speech pathologist findings and specific feeding recommendations. Labs Labs: Laboratory Results - last 24 hr 01/26/25 01/27/25 01/27/25 19:54 02:04 04:06 WBC 17.5 H RBC 3.21 L Hgb 10.3 L Hct 32.7 L MCV 101.9 H MCH 32.1 MCHC 31.5 L RDW 14.7 H Plt Count 470 H MPV 9.9 Immature Gran % (Auto) 0.7 H Neut % (Auto) 83.7 H Lymph % (Auto) 11.7 L [place] % (Auto) 3.0 Eos % (Auto) 0.6 Baso % (Auto) 0.3 Lymph # (Auto) 2.05 [place] # (Auto) 0.5 Eos # (Auto) 0.1 Baso # (Auto) 0.1 Abs Immat Gran (auto) 0.12 H Absolute Neuts (auto) 14.6 H Absolute Nucleated RBC 0.000 Nucleated RBC % 0.0 Sodium 137 Potassium 3.3 L Chloride 108 H Carbon Dioxide 24 Anion Gap 5 BUN 15 D Creatinine 0.41 L Estim Creat Clear Calc 112 Estimated GFR > 60 Glucose 123 H POC Capillary Glucose 161 H 116 H Calcium 8.4 Phosphorus 3.0 Magnesium 2.2 Total Bilirubin 0.9 AST 52 H ALT 40 H Alkaline Phosphatase 62 Total Protein 5.6 L Albumin 2.5 L 01/27/25 01/27/25 07:25 11:21 WBC RBC Hgb Hct MCV MCH MCHC RDW Plt Count MPV Immature Gran % (Auto) Neut % (Auto) Lymph % (Auto) Barron % (Auto) Eos % (Auto) Baso % (Auto) Lymph # (Auto) [place]ron # (Auto) Eos # (Auto) Baso # (Auto) Abs Immat Gran (auto) Absolute Neuts (auto) Absolute Nucleated RBC Nucleated RBC % Sodium Potassium Chloride Carbon Dioxide Anion Gap BUN Creatinine Estim Creat Clear Calc Estimated GFR Glucose POC Capillary Glucose 118 H 130 H Calcium Phosphorus Magnesium Total Bilirubin AST ALT Alkaline Phosphatase Total Protein Albumin Quality VTE Prophylaxis VTE prophylaxis: pharmacologic ordered Hospitalist MIPS Advance Care Plan I have confirmed that the patient's Advanced Care Plan is present, code status is documented, or surrogate decision maker is listed in patient medical record.: Yes Medication Reconciliation I have utilized all available resources to obtain, update and review the patients current medications (includes all prescriptions, OTC, herbals, cannabis, and nutritional supplements).: Yes
--- NOTE | 2025-01-27 14:15 | PCOTNOTE ---
Patient out of the room at this time. Patient is down having an MRI.
[2025-01-27 15:43] LABS: Glucose Point of Care 143 mg/dl (65-105)
[2025-01-27] MEDS: ATORVASTATIN 20 MG TABLET PO (18:18)
[2025-01-27 19:43] LABS: Glucose Point of Care 190 mg/dl (65-105)
[2025-01-27] MEDS: INSULIN GLARGINE (*BKC) 100 UNITS/ML 10 UNITS SUB-Q (21:02)
[2025-01-28] VITALS (20 sets, daily range): BP systolic 105–124; BP diastolic 54–67; PULSE 96–124; RESP 16–20; TEMP 36.4–37.1; O2SAT 86–97
[2025-01-28] MEDS: MEROPENEM 1 GM/NS 100 ML 1 GM/100 ML BAG IVPB ×3 (01:29→18:00)
[2025-01-28] MEDS: CENTRAL LINE FLUSH 10 ML IV PUSH ×3 (01:30→20:23)
[2025-01-28 04:17] LABS: Basophils Percent Auto 0.2 % (0.2-1.2); Eosinophils Absolute Auto 0.1 K/mm3 (0-0.3); Eosinophils Percent Auto 0.4 % (0-4.4); Hematocrit 31.1 % (37.0-47.0); Hemoglobin 9.9 g/dL (12.0-15.0); Immature Granulocyte Absolute 0.13 K/mm3 (0.00-0.031); Immature Granulocyte Percent A 0.8 % (0-0.5); Lymphocytes Absolute Auto 1.51 K/mm3 (0.9-3.2); Lymphocytes Percent Auto 9.2 % (18.3-44.2); Mean Corpuscular HGB Conc 31.8 g/dl (32-36); Mean Corpuscular Hemoglobin 32.2 pg (26-34); Mean Corpuscular Volume 101.3 fl (80-100); Mean Platelet Volume 9.8 fl (7.4-10.4); Monocytes Absolute Auto 0.6 K/mm3 (0.1-0.6); Monocytes Percent Auto 3.4 % (2.6-8.5); Neutrophils Absolute Auto 14.1 K/mm3 (1.3-6.7); Platelet Count Result 511 k/mm3 (150-375); Red Blood Count 3.07 M/mm3 (4.2-5.4); Red Cell Distribution Width 15.1 % (11.5-14.5); White Blood Count 16.4 K/mm3 (4.5-10.0)
[2025-01-28 04:33] LABS: Alanine Aminotransferase 39 U/L (6-35); Albumin Level 2.6 g/dL (3.5-5.1); Alkaline Phosphatase 60 U/L (38-126); Anion Gap 4 mmol/L (4-12); Aspartate Amino Transferase 44 U/L (14-36); Blood Urea Nitrogen 12 mg/dL (7-17); Calcium 8.6 mg/dL (8.4-10.2); Carbon Dioxide 27 mmol/L (22-30); Chloride 107 mmol/L (98-107); Estimated CRCL calculation 95 ml/min; Estimated Glomerular Filt Rate > 60; Glucose 120 mg/dL (65-110); Magnesium 2.1 mg/dL (1.6-2.3); Phosphorus 2.8 mg/dL (2.5-4.5); Potassium 3.3 mmol/L (3.4-5.0); Sodium 138 mmol/L (137-145); Total Protein 5.8 g/dL (6.3-8.2)
[2025-01-28 07:19] LABS: Glucose Point of Care 126 mg/dl (65-105)
[2025-01-28] MEDS: estradioL 1 MG TABLET PO (08:32)
[2025-01-28] MEDS: METOPROLOL TARTRATE 25 MG TABLET PO ×2 (08:32→20:21)
[2025-01-28] MEDS: PANTOPRAZOLE 40 MG TABLET PO (08:32)
[2025-01-28] MEDS: WATER FOR IRRIGATION, STERILE 1,000 ML BOTTLE 1000 ML (08:33)
--- NOTE | 2025-01-28 09:56 | PM.IMPN ---
Progress Note: A&P Assessment and Plan (1) Septic shock: Code(s): A41.9 - Sepsis, unspecified organism; R65.21 - Severe sepsis with septic shock Status: Acute Assessment and Plan: Patient presented with bilateral lower lobe infiltrates, pneumonia, hypotension overnight requiring central line placement on 01/19, and Levophed -01/20: currently off all pressors -01/18: Blood and sputum cultures growing MSSA -01/20 and 01/23: Repeat blood cultures negative so far -status post doxycycline for 5 days -01/21: started on Cefazolin and DC cefepime, vancomycin (01/21) -patient received a course of Solu-Medrol for 4 doses, wheezing has improved -01/23: Patient again febrile with a T-max of 101.3?, thick yellow colored secretions from the ET tube, white blood cell count trending up. FiO2 requirements going up, Will repeat blood cultures, -01/23: DC cefazolin. Started vancomycin and meropenem (01/23) Fever curve much improved, patient is afebrile, improvement in WBC 1625: Echocardiogram Summary 1. Left ventricular chamber dimension is normal. 2. Left ventricular systolic function is normal, estimated at 60-65. 3. The left ventricular diastolic function is grade I diastolic dysfunction. 4. Right ventricular chamber dimension is mildly enlarged. 5. Right ventricular systolic function is normal. 6. Right atrial chamber dimension is mildly enlarged. 7. There is mild to moderate tricuspid valve regurgitation. (2) Acute hypoxic respiratory failure: Code(s): J96.01 - Acute respiratory failure with hypoxia Status: Acute Assessment and Plan: 01/18: Patient presented the ED with shortness of breath, weakness, diabetic ketoacidosis, pneumonia. Intubated in the ED for airway protection and hypoxia 01/25 extubated -chest x-ray and ABGs reviewed, - CTA chest on admission showed bilateral lower lobe pneumonia -positive for influenza A, On Tamiflu -01/23: bilateral diffuse wheezing, continue bronchodilators and received a course Solu-Medrol -wheezing which improved this morning, Continue supplemental oxygen Incentive spirometry -01/28: CT chest shows cavitary lesions. -continue meropenem -started linezolid 01/15: CTA chest IMPRESSION: 1. No pulmonary embolism. 2. Bilateral pneumonia in the lower lobes. Pneumonia in the lingula. Minimal changes of pneumonia in the right middle lobe. Pneumonia in the right upper lobe posteriorly. Follow-up to resolution is advised. (3) PNA (pneumonia): Code(s): J18.9 - Pneumonia, unspecified organism Status: Acute Assessment and Plan: 01/28/2025 CT shows a cavitary lesions in lung Currently on meropenem and linezolid Order QuantiFERON test Order PEPITO to rule out valve vegetation 01/28: CT Chest:Interval progression of multifocal consolidation within the bilateral lung martini, now demonstrating cavitation with intracavitary nodule in the lingula for which the differential diagnosis is broad but includes reactivated tuberculosis, aspergillosis, autoimmune etiology and infection versus septic pulmonary emboli (thought to be less likely secondary to cavitary distribution) (4) DKA (diabetic ketoacidosis): Code(s): E11.10 - Type 2 diabetes mellitus with ketoacidosis without coma Status: Acute Assessment and Plan: Patient presented with elevated beta hydroxybutyrate, anion gap metabolic acidosis, UA showed ketones, glucose -likely euglycemic diabetic ketoacidosis as patient was still taking Jardiance and metformin -this given 3 L IV fluids since admission, started on insulin infusion per DKA protocol -overnight patient was transition to long-acting insulin Lantus, and sliding scale insulin with Accu-Chek -continue to monitor -blood sugars in stable, continue Accu-Cheks, sliding scale insulin and Lantus (5) Flu: Code(s): J11.1 - Influenza due to unidentified influenza virus with other respiratory manifestations Status: Acute Assessment and Plan: Patient was tested positive for influenza A -status post course of Tamiflu (6) Chronic low blood pressure: Code(s): I95.89 - Other hypotension Status: Acute Assessment and Plan: Patient has chronic low blood pressures, according the daughter systolic blood pressures range in the 80s to 90s -blood pressures remain stable off pressors (7) Sinus tachycardia: Code(s): R00.0 - Tachycardia, unspecified Status: Acute Assessment and Plan: Has a history of chronic sinus tachycardia for which she is on metoprolol at home, -patient's heart rate is in the 100-110 which is her baseline -01/23: Restarted home metoprolol Change bronchodilators p.r.n. Check thyroid function test (8) PCOS (polycystic ovarian syndrome): Code(s): E28.2 - Polycystic ovarian syndrome Status: Acute Assessment and Plan: Hold spironolactone (9) Hyperlipidemia: Code(s): E78.5 - Hyperlipidemia, unspecified Status: Acute Assessment and Plan: continue Atorvastatin (10) Electrolyte imbalance: Code(s): E87.8 - Other disorders of electrolyte and fluid balance, not elsewhere classified Status: Acute Assessment and Plan: Replace potassium (11) Encephalopathy: Code(s): G93.40 - Encephalopathy, unspecified Status: Acute Assessment and Plan: Improving. Part delirium. Will get her up in a chair, PT OT, IS (12) Right foot drop: Code(s): M21.371 - Foot drop, right foot Status: Acute Assessment and Plan: Acute finding Reviewed MRI cervical, thoracic and lumbar Evidence of New cavitary lesions in lung Will repeat MRI lumbar needed Dr. Domingo reviewed with MRI with Radiology to definitely rule out osteomyelitis, diskitis or spinal abscess Consulted neurology and Neurosurgery Evidence of bowel incontinence Consider AFO EMG after Neurology recommendation PT OT Plan DVT prophylaxis: Lovenox Stress ulcer prophylaxis: Protonix Nutrition: Swallow study ordered and pending Code Status: Full code Subjective Date/time seen: 01/28/25 09:56 Interval history: Patient is chest CT reveals post influenza cavitary lesions secondary to MSSA . Dr. Domingo reviewed the MRI of spine with Radiology and there is no evidence of osteomyelitis, diskitis or spinal abscess . Consulted Cardiology for PEPITO . If no improvement in right footdrop possibly will repeat MRI in 2 days Review of Systems Review of Systems: All systems reviewed & are unremarkable except as noted in HPI and below (HPI) ROS unobtainable: Yes unobtainable due to endotracheal tube, unobtainable due to medical condition and unobtainable due to mental status Exam Narrative: General: Awake alert in no acute distress HEENT:? Pupils small and reactive bilaterally, sclera is clear, Neck:? Supple, right IJ central line in place Respiratory:? Coarse breath sounds bilaterally, decreased at bases, bilateral wheezing, no tachypnea use of accessory muscles or respiratory distress Cardiac:? Sinus tachycardia, S1-S2 was normal, no murmurs Abdomen:? Soft, nontender, nondistended, hypoactive bowel sounds Extremities:? No edema, palpable pedal pulses Neuro:? Intubated, AO x3 follows simple commands in all extremities carries conversation but is little confused and goes tangential when answering questions Skin:? No lesions noted Psych:? Normal speech and affect Objective Data Vital Signs Vital Signs: Vital Signs - 24 hr 01/27/25 10:00 01/27/25 12:00 01/27/25 12:00 Temperature Pulse Rate 112 H 108 H Respiratory Rate Blood Pressure Pulse Oximetry 91 Oxygen Delivery Nasal Cannula Oxygen Flow Rate 6 01/27/25 12:05 01/27/25 14:00 01/27/25 15:48 Temperature 98.3 F 97.2 F L Pulse Rate 106 H 104 H 103 H Respiratory Rate 20 18 Blood Pressure 162/68 H 129/67 Pulse Oximetry 99 97 Oxygen Delivery Oxygen Flow Rate 01/27/25 16:00 01/27/25 16:00 01/27/25 16:52 Temperature Pulse Rate 102 H Respiratory Rate Blood Pressure 173/72 H Pulse Oximetry 97 Oxygen Delivery Nasal Cannula Oxygen Flow Rate 4 01/27/25 18:00 01/27/25 19:45 01/27/25 20:00 Temperature 98.6 F Pulse Rate 77 116 H 115 H Respiratory Rate 16 Blood Pressure 120/61 Pulse Oximetry 95 95 Oxygen Delivery Nasal Cannula Oxygen Flow Rate 4 01/27/25 20:00 01/27/25 20:57 01/27/25 22:00 Temperature Pulse Rate 112 H 118 H 110 H Respiratory Rate Blood Pressure Pulse Oximetry Oxygen Delivery Oxygen Flow Rate 01/27/25 23:18 01/27/25 23:41 01/28/25 00:00 Temperature 98.7 F Pulse Rate 99 103 H 102 H Respiratory Rate 16 Blood Pressure 98/54 L Pulse Oximetry 95 94 Oxygen Delivery Nasal Cannula Oxygen Flow Rate 5 01/28/25 03:48 01/28/25 04:00 01/28/25 04:00 Temperature 98.7 F Pulse Rate 101 H 101 H 101 H Respiratory Rate 16 Blood Pressure 105/54 L Pulse Oximetry 90 93 Oxygen Delivery Nasal Cannula Oxygen Flow Rate 5 01/28/25 06:00 01/28/25 07:39 01/28/25 08:10 Temperature 98.1 F Pulse Rate 104 H 104 H 109 H Respiratory Rate 18 20 Blood Pressure 119/61 Pulse Oximetry 92 86 L Oxygen Delivery High Flow Nasal Cannula Oxygen Flow Rate 8 01/28/25 08:32 Temperature Pulse Rate 111 H Respiratory Rate Blood Pressure Pulse Oximetry Oxygen Delivery Oxygen Flow Rate Intake/Output Intake/Output: Intake & Output 01/25/25 01/26/25 01/27/25 01/28/25 23:59 23:59 23:59 23:59 Intake Total 3461 800 490 480 Output Total 2475 1400 2300 1050 Balance 986 -600 -1810 -570 Meds/Results Medications: Active Medications Generic Name Dose Route Start Last Admin Trade Name Freq PRN Reason Stop Dose Admin Acetaminophen 650 mg 01/18/25 20:28 01/24/25 08:23 Acetaminophen Elixir 325 Mg/10.15 Ml Udc FEED TUBE 650 mg Q4H PRN Administration Mild Pain (1-3) or Fever Atorvastatin Calcium 20 mg 01/19/25 18:00 01/27/25 18:18 Atorvastatin 20 Mg Tablet PO 20 mg QPM SESAR Administration Dextrose 12.5 gm 01/27/25 05:42 Dextrose 50% 25 Gm/50 Ml Syringe IV PUSH PRN PRN Hypoglycemia Protocol Enoxaparin Sodium 40 mg 01/20/25 09:00 01/27/25 09:51 Enoxaparin 40 Mg/0.4 Ml Syringe SUB-Q 40 mg DAILY SESAR Administration Estradiol 1 mg 01/19/25 09:00 01/28/25 08:32 Estradiol 1 Mg Tablet PO 1 mg DAILY SESAR Administration Glucagon 1 mg 01/27/25 05:42 Glucagon For Inj 1 Mg Vial IM PRN PRN Hypoglycemia Protocol Glucose 15 gm 01/27/25 05:42 Glucose Oral Gel 15 Gm Of Glucse In 37.5 Gm Tube PO PRN PRN Hypoglycemia Protocol Dextrose 1,000 mls @ 100 mls/hr 01/27/25 05:42 Dextrose 5% 1,000 Ml IVPB PRN PRN Hypoglycemia Protocol Meropenem 1 gm in 100 mls @ 200 mls/hr 01/27/25 18:00 01/28/25 01:29 IVPB 01/30/25 10:29 200 mls/hr Q8H SESAR Administration Insulin Aspart 3 - 6 units 01/27/25 06:30 01/28/25 08:26 Insulin Aspart (*Bkc) 100 Units/Ml SUB-Q Not Given ACHS SESAR Protocol Insulin Glargine 10 units 01/25/25 21:00 01/27/25 21:02 Insulin Glargine (*Bkc) 100 Units/Ml SUB-Q 10 units HS SESAR Administration Ipratropium [place] 0.5 mg 01/26/25 07:34 Ipratropium Br 0.02% Inh Soln 0.5 Mg/2.5 Ml Vial INHALATION Q6HRT PRN Wheezing Levalbuterol HCl 0.63 mg 01/26/25 07:34 01/26/25 22:37 Levalbuterol Neb 1.25 Mg/3 Ml INHALATION 0.63 mg Q6HRT PRN Administration Wheezing Linezolid 600 mg 01/30/25 09:00 Linezolid 600 Mg Tablet PO 02/03/25 21:01 Q12HR SESAR Metoprolol Tartrate 25 mg 01/26/25 21:45 01/28/25 08:32 Metoprolol Tartrate 25 Mg Tablet PO 25 mg Q12HR SESAR Administration Ondansetron HCl 4 mg 01/19/25 01:20 Ondansetron Inj 4 Mg/2 Ml Vial IV PUSH Q4H PRN Nausea And Vomiting Pantoprazole Sodium 40 mg 01/28/25 09:00 01/28/25 08:32 Pantoprazole 40 Mg Tablet PO 40 mg QAM SESAR Administration Polyethylene Glycol 17 gm 01/24/25 10:15 Polyethylene Glycol 3350 17 Gm Powd.Pack PO QAM PRN Constipation Senna/Docusate Sodium 1 tab 01/24/25 10:20 01/28/25 08:33 Senna/Docusate Sodium Tablet PO Not Given Q12HR SESAR Sodium Chloride 10 ml 01/19/25 06:00 01/28/25 01:30 Central Line Flush IV PUSH 10 ml Q8HR SESAR Administration Sodium Chloride 20 ml 01/19/25 04:13 01/25/25 05:16 Central Line Flush IV PUSH 20 ml PRN PRN Administration after blood draws Spironolactone 100 mg 01/19/25 09:00 Spironolactone 50 Mg Tablet PO Q12HR [facility] Radiology Results: ITS Impressions Chest CTA 01/18/25 15:25 IMPRESSION: 1. No pulmonary embolism. 2. Bilateral pneumonia in the lower lobes. Pneumonia in the lingula. Minimal changes of pneumonia in the right middle lobe. Pneumonia in the right upper lobe posteriorly. Follow-up to resolution is advised. Head CT 01/22/25 10:18 Impression: No significant abnormality seen. Abdomen X-Ray 01/23/25 15:14 IMPRESSION: Orogastric tube in good position and ready for immediate use. Chest X-Ray 01/26/25 05:29 Impression: Worsening bibasilar and bilateral perihilar airspace disease with small pleural effusions. Findings suggest worsening pulmonary edema/atelectasis. Correlate clinically for pneumonia. Right IJ line in place. Modified Barium Swallow 01/26/25 13:30 IMPRESSION: Pharyngeal dysphagia with laryngeal penetration and one episode of aspiration on the initial trial. Please correlate with speech pathologist findings and specific feeding recommendations. Cervical Spine MRI 01/27/25 16:12 IMPRESSION: 1. Mild cervical spondylosis. Thoracic Spine MRI 01/27/25 16:25 IMPRESSION: 1. 15 degrees thoracic levoscoliosis with mild spondylosis. 2. Consolidation in the bilateral lower lobes which could represent atelectasis or pneumonia. Lumbar Spine MRI 01/27/25 16:40 IMPRESSION: 1. . 20 degrees lumbar dextroscoliosis with severe spondylosis. Labs Labs: Laboratory Results - last 24 hr 01/27/25 01/27/25 01/27/25 11:21 15:40 19:37 WBC RBC Hgb Hct MCV MCH MCHC RDW Plt Count MPV Immature Gran % (Auto) Neut % (Auto) Lymph % (Auto) [place] % (Auto) Eos % (Auto) Baso % (Auto) Lymph # (Auto) [place] # (Auto) Eos # (Auto) Baso # (Auto) Abs Immat Gran (auto) Absolute Neuts (auto) Absolute Nucleated RBC Nucleated RBC % Sodium Potassium Chloride Carbon Dioxide Anion Gap BUN Creatinine Estim Creat Clear Calc Estimated GFR Glucose POC Capillary Glucose 130 H 143 H 190 H Calcium Phosphorus Magnesium Total Bilirubin AST ALT Alkaline Phosphatase Total Protein Albumin 01/28/25 01/28/25 04:06 07:17 WBC 16.4 H RBC 3.07 L Hgb 9.9 L Hct 31.1 L MCV 101.3 H MCH 32.2 MCHC 31.8 L RDW 15.1 H Plt Count 511 H MPV 9.8 Immature Gran % (Auto) 0.8 H Neut % (Auto) 86.0 H Lymph % (Auto) 9.2 L [place] % (Auto) 3.4 Eos % (Auto) 0.4 Baso % (Auto) 0.2 Lymph # (Auto) 1.51 [place] # (Auto) 0.6 Eos # (Auto) 0.1 Baso # (Auto) 0.0 Abs Immat Gran (auto) 0.13 H Absolute Neuts (auto) 14.1 H Absolute Nucleated RBC 0.000 Nucleated RBC % 0.0 Sodium 138 Potassium 3.3 L Chloride 107 Carbon Dioxide 27 Anion Gap 4 BUN 12 Creatinine 0.49 L Estim Creat Clear Calc 95 Estimated GFR > 60 Glucose 120 H POC Capillary Glucose 126 H Calcium 8.6 Phosphorus 2.8 Magnesium 2.1 Total Bilirubin 1.0 AST 44 H ALT 39 H Alkaline Phosphatase 60 Total Protein 5.8 L Albumin 2.6 L Quality VTE Prophylaxis VTE prophylaxis: pharmacologic ordered Hospitalist MIPS Advance Care Plan I have confirmed that the patient's Advanced Care Plan is present, code status is documented, or surrogate decision maker is listed in patient medical record.: Yes Medication Reconciliation I have utilized all available resources to obtain, update and review the patients current medications (includes all prescriptions, OTC, herbals, cannabis, and nutritional supplements).: Yes
[2025-01-28] MEDS: ENOXAPARIN 40 MG/0.4 ML SYRINGE SUB-Q (10:43)
[2025-01-28 11:34] LABS: Glucose Point of Care 152 mg/dl (65-105)
--- NOTE | 2025-01-28 11:53 | PCPTNOTE ---
Attempted PT this morning, however patient out of room for CT. Will continue to follow.
--- NOTE | 2025-01-28 12:26 | WPDCDIQUERY2 ---
CDI Query Clarification Request Encephalopathy has been documented. Please clarify type of encephalopathy: Metabolic Toxic Hepatic Hypertensive Other Unable to Determine The medical chart reflects the following: This is a 54-year-old female patient with a past medical history type 2 diabetes on metformin, Jardiance and Ozempic. Unknown other history though medication reconciliation was able to be completed through patient family. Patient is admitted for acute hypoxic respiratory failure with DKA. Patient was on a 7 day cruise with her daughter with stops in [facility], [place] and [facility]. Approximately 4 days ago began to have a cough. After the cough started, patient complained of worsening sore throat. She got to the point about 2 days ago when she quit eating or drinking anything. Her daughter states she has continued to take her medications while not eating or drinking anything including her Jardiance and metformin. Today patient was having trouble breathing but did not want to go to a hospital in [place] so she flew home and family brought her straight to ER from the airport. Patient was very tachypneic and extremely weak. She was intubated to protect airway and ease work of breathing. Initial labs with mild hyperglycemia but severely depleted CO2. ABG showed metabolic acidosis with ineffective respiratory compensation. WBC 10.3 with 23% bandemia. CXR showed pneumonia. Patient started on Cefepime, doxycycline and vancomycin for septic shock with altered mental status, fever, tachycardia, tachypnea. Lactic acid was normal at 1.0. CRP >45, Beta-hydroxybutyrate 7.79, urine with 3+ glucose and 3+ ketones. Viral swab was positive for Influenza A and patient was started on Tamiflu in ER. Procalcitonin was 7.4 ng/mL which is highly suggestive of systemic bacterial infection. Antibiotics will be continued. Ketoacidosis likely multifactorial including starvation, dehydration, diabetic and Jardiance related. Insulin drip started after IV fluid resuscitation. Initial Anion Gap calculated at 31 in ER, down to 12 by 2300. Insulin drip turned off and LR infusion at 75 mL/hr started. Q4H fingerstick glucose with SSI and Lantus 12 units given. Patient has been on 1 unit/hr of insulin drip since around 1700. She did get one amp of D50 to keep glucose up enough to finish closing anion gap. CO2 remains low but much improved. Potassium will be replaced by OG tube. Will hold all diabetic medications except insulin right now. (11) Encephalopathy: Code(s): G93.40 - Encephalopathy, unspecified Status: Acute Assessment and Plan: Improving. Part delirium. Will get her up in a chair, PT OT, IS (1) Septic shock: Code(s): A41.9 - Sepsis, unspecified organism; R65.21 - Severe sepsis with septic shock Status: Acute Assessment and Plan: Patient presented with bilateral lower lobe infiltrates, pneumonia, hypotension overnight requiring central line placement on 01/19, and Levophed -continue Levophed to maintain SBP> 90 mmHg, as daughter stateThat patient has normal SBP is in the 80s to 90s -01/19: switch Levophed to phenylephrine as patient is tachycardic, will wean Levophed to off -elevated CRP and procalcitonin on admission -remains febrile, continue Tylenol -this could be related to influenza A and pneumonia -01/20: currently off all pressors -01/18: Blood cultures growing MSSA -01/19: Sputum cultures obtained and pending -status post IV fluids and albumin with improvement in heart -lactic acid remains normal -01/20: Repeat blood cultures negative so far -On doxycycline (01/18) -01/21: started on Cefazolin and DC cefepime, vancomycin (01/21) 1625: Echocardiogram Summary 1. Left ventricular chamber dimension is normal. 2. Left ventricular systolic function is normal, estimated at 60-65. 3. The left ventricular diastolic function is grade I diastolic dysfunction. 4. Right ventricular chamber dimension is mildly enlarged. 5. Right ventricular systolic function is normal. 6. Right atrial chamber dimension is mildly enlarged. 7. There is mild to moderate tricuspid valve regurgitation. (2) Acute hypoxic respiratory failure: Code(s): J96.01 - Acute respiratory failure with hypoxia Status: Acute Assessment and Plan: 01/18: Patient presented the ED with shortness of breath, weakness, diabetic ketoacidosis, pneumonia 01/18: Intubated in the ED for airway protection and hypoxia -remains on CMV mode of ventilation, peep of 5, 30% FiO2, titrate FiO2 to maintain O2 sat > 92% -chest x-ray and ABGs reviewed, ventilator adjusted - CTA chest on admission showed bilateral lower lobe pneumonia - OFF sedation since 01/21 am -positive for influenza A, On Tamiflu 01/15: CTA chest IMPRESSION: 1. No pulmonary embolism. 2. Bilateral pneumonia in the lower lobes. Pneumonia in the lingula. Minimal changes of pneumonia in the right middle lobe. Pneumonia in the right upper lobe posteriorly. Follow-up to resolution is advised. (3) PNA (pneumonia): Code(s): J18.9 - Pneumonia, unspecified organism Status: Acute Assessment and Plan: Bilateral lower lobe pneumonia, continue antibiotics as above -currently intubated on mechanical ventilation (4) DKA (diabetic ketoacidosis): Code(s): E11.10 - Type 2 diabetes mellitus with ketoacidosis without coma Status: Acute Assessment and Plan: Patient presented with elevated beta hydroxybutyrate, anion gap metabolic acidosis, UA showed ketones, glucose -likely euglycemic diabetic ketoacidosis as patient was still taking Jardiance and metformin -this given 3 L IV fluids since admission, started on insulin infusion per DKA protocol -overnight patient was transition to long-acting insulin Lantus, and sliding scale insulin with Accu-Chek -continue to monitor -continue Lantus (5) Flu: Code(s): J11.1 - Influenza due to unidentified influenza virus with other respiratory manifestations Status: Acute Assessment and Plan: Patient was tested positive for influenza A -continue Tamiflu (6) Chronic low blood pressure: Code(s): I95.89 - Other hypotension Status: Acute Assessment and Plan: Patient has chronic low blood pressures, according the daughter systolic blood pressures range in the 80s to 90s <Tiesha Levy RN - Last Filed: 01/28/25 12:27> Clarified Diagnosis Clarified Diagnosis: Unable to Determine <Alan Geronimo MD - Last Filed: 01/28/25 17:03>
--- NOTE | 2025-01-28 12:43 | P.CONNEU_ITS ---
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 She will require EMG nerve can study of the lower limbs in 3-4 weeks time however in the meanwhile a AFO should be given to her which will help for her ambulation. I also have personally discussed with the physical therapist and with the hospitalist. She does not cross her legs but she has lost about 40 lb weight in the last year. She also in ICU on account of respiratory failure. In the setting of weight loss times even a mild compression around the fibular head can lead to footdrop. Has any pressure around this area should be avoided. I did not feel any ganglion cyst or swelling around this area however she will require some follow-up from neurologic point of view. I shall be glad to do so in my office upon her discharge. I did consider the possible right L5 radiculopathy or sciatic neuropathy however there does not appear to be any clear evidence of any of these. Nevertheless further studies may be helpful. I reviewed the MRI of the lumbosacral spine as well as cervical and thoracic spine and did not see any evidence for right L4-5 disc herniation or narrowing of the neural foramina. Also there is no a spinal cord compression. (2) DKA (diabetic ketoacidosis): Code(s): E11.10 - Type 2 diabetes mellitus with ketoacidosis without coma Status: Acute (3) PCOS (polycystic ovarian syndrome): Code(s): E28.2 - Polycystic ovarian syndrome Status: Acute (4) Influenza A: Code(s): J10.1 - Influenza due to other identified influenza virus with other respiratory manifestations Status: Acute (5) Acute hypoxic respiratory failure: Code(s): J96.01 - Acute respiratory failure with hypoxia Status: Acute (6) PNA (pneumonia): Code(s): J18.9 - Pneumonia, unspecified organism Status: Acute Plan As discussed above EMG nerve can study of lower limbs after 3-4 with very helpful in the meanwhile an AFO for the right foot will be helpful. Consult date: 01/28/25 HPI: Kimberly Mixon is a 54 year old female Being evaluated for right footdrop which were noted in the last 2 days or so. Patient history of diabetes mellitus since childhood. She went on a cruise on 01/08/2025 and developed respiratory symptoms. She managed to get here but because of the significant respiratory failure she was intubated and was in ICU and now has improved. She was found to have bilateral pneumonia and also influenza a infection. She will also in diabetic ketoacidosis. There are some question of incontinence bowel yesterday. And hence he underwent MRI of the cervical thoracic and lumbosacral spine which did not show any significant findings. Particularly there was no evidence for spinal cord compression or any disc herniation of the lumbar spine. CT scan of brain was performed on 01/22/2025 which also was within normal limits. She was noted to have thoraco lumbar scoliosis at about 15-20 degrees. Previously she was diagnosed to have PCOS and Raynaud's disease and affected of collagen vascular diseases according to the patient herself. She has lost about 40 lb weight in the last 1 year but she does not cross her legs have which [place]. This is a day 10 being in the hospital. She denies any significant pain in the lower back or in the legs specifically no numbness or tingling in the both feet. At this time she has some numbness in the right foot she denies any pain in the buttocks or radiation to the right lower limb. Review of Systems 2 Review of Systems: All systems reviewed & are unremarkable except as noted in HPI and below PMFSH Past Medical History Medical History (Updated 01/28/25 @ 12:48 by Lauren Griffin MD) Influenza A Chronic low blood pressure Family History Family History Father Diabetes mellitus Mother Diabetes mellitus Other Family history of cardiovascular disease Hypertension Social History Social History Smoking status: Never smoker Alcohol intake: current Drinks per week: 1 Substance use type: does not use Spiritual care concerns: No Meds Home Medications and Allergies Home Medications ?Medication ?Instructions ?Recorded ?Confirmed ?Type atorvastatin 20 mg tablet 20 mg PO QPM 01/18/25 01/18/25 History cyclobenzaprine 10 mg tablet 10 mg PO TID 01/18/25 01/18/25 History empagliflozin 10 mg tablet 10 mg PO DAILY 01/18/25 01/18/25 History (Jardiance) estradiol 1 mg tablet 1 mg PO DAILY 01/18/25 01/18/25 History metformin 500 mg tablet,extended 500 mg PO .Q12HR 01/18/25 01/18/25 History release 24 hr metoprolol succinate 50 mg 50 mg PO DAILY 01/18/25 01/18/25 History tablet,extended release 24 hr nabumetone 750 mg tablet 750 mg PO .q12hr 01/18/25 01/18/25 History semaglutide 2 mg/dose (8 mg/3 mL) 2 mg subcut WEEKLY 01/18/25 01/18/25 History subcutaneous pen injector (Ozempic) spironolactone 100 mg tablet 100 mg PO Q12H 01/18/25 01/18/25 History Allergies Allergy/AdvReac Type Severity Reaction Status Date / Time Sulfa (Sulfonamide Allergy Unknown Rash Verified 01/18/25 16:13 Antibiotics) Vital Signs Vital Signs - 24 hr 01/27/25 14:00 01/27/25 15:48 01/27/25 16:00 Temperature 97.2 F L Pulse Rate 104 H 103 H 102 H Respiratory Rate 18 Blood Pressure 129/67 Pulse Oximetry 97 Oxygen Delivery Oxygen Flow Rate 01/27/25 16:00 01/27/25 16:52 01/27/25 18:00 Temperature Pulse Rate 77 Respiratory Rate Blood Pressure 173/72 H Pulse Oximetry 97 Oxygen Delivery Nasal Cannula Oxygen Flow Rate 4 01/27/25 19:45 01/27/25 20:00 01/27/25 20:00 Temperature 98.6 F Pulse Rate 116 H 115 H 112 H Respiratory Rate 16 Blood Pressure 120/61 Pulse Oximetry 95 95 Oxygen Delivery Nasal Cannula Oxygen Flow Rate 4 01/27/25 20:57 01/27/25 22:00 01/27/25 23:18 Temperature Pulse Rate 118 H 110 H 99 Respiratory Rate Blood Pressure Pulse Oximetry 95 Oxygen Delivery Nasal Cannula Oxygen Flow Rate 5 01/27/25 23:41 01/28/25 00:00 01/28/25 03:48 Temperature 98.7 F 98.7 F Pulse Rate 103 H 102 H 101 H Respiratory Rate 16 16 Blood Pressure 98/54 L 105/54 L Pulse Oximetry 94 90 Oxygen Delivery Oxygen Flow Rate 01/28/25 04:00 01/28/25 04:00 01/28/25 06:00 Temperature Pulse Rate 101 H 101 H 104 H Respiratory Rate Blood Pressure Pulse Oximetry 93 Oxygen Delivery Nasal Cannula Oxygen Flow Rate 5 01/28/25 07:39 01/28/25 08:10 01/28/25 08:32 Temperature 98.1 F Pulse Rate 104 H 109 H 111 H Respiratory Rate 18 20 Blood Pressure 119/61 Pulse Oximetry 92 86 L Oxygen Delivery High Flow Nasal Cannula Oxygen Flow Rate 8 01/28/25 11:59 Temperature 97.6 F Pulse Rate 107 H Respiratory Rate 20 Blood Pressure 111/61 Pulse Oximetry 96 Oxygen Delivery Oxygen Flow Rate Exam 2 Const: General: cooperative, well developed and alert O rientation/consciousness: patient oriented x3 HENMT: Head: atraumatic Mouth: Yes oropharynx normal Eyes: Alignment and Position: position normal Pupils: Equal, round and reactive pupils present EOM: EOMs intact bilaterally Neck: Neck: supple Resp: Effort & Inspection: normal respiratory effort Neuro: General: patient oriented x3 Cranial nerves: Yes CN's II-XII intact bilaterally, Yes facial sensation intact/muscles of mastication intact, Yes Equal, round and reactive pupils present, Yes facial symmetry and Yes Midline tongue present Cognition (Neuro): normal cognition Speech: normal speech Coordination: [id number] test normal and Normal rapid alternating movements of the distal upper extremity present (Neuro) Other: There is a complete right footdrop with weakness of dorsiflexion and eversion of the right foot. She is able to invert her right foot. Deep tendon reflexes at knees and ankles were essentially absent. There is a distal sensory loss to touch pin and temperature. Results Labs 01/28/25 04:06 01/28/25 04:06 Labs: Short CBC 01/28/25 Range/Units 04:06 WBC 16.4 H (4.5-10.0) K/mm3 Hgb 9.9 L (12.0-15.0) g/dL Hct 31.1 L (37.0-47.0) % Plt Count 511 H (150-375) k/mm3 BMP 01/28/25 04:06 Sodium 138 Potassium 3.3 L Chloride 107 Carbon Dioxide 27 BUN 12 Creatinine 0.49 L Glucose 120 H Calcium 8.6 Liver Function 01/28/25 Range/Units 04:06 Total Bilirubin 1.0 (0.2-1.3) mg/dL AST 44 H (14-36) U/L ALT 39 H (6-35) U/L Alkaline Phosphatase 60 (38-126) U/L Albumin 2.6 L (3.5-5.1) g/dL
--- NOTE | 2025-01-28 14:42 | P.CONPL_ITS ---
Assessment and Plan Assessment and plan (1) Influenza A: Code(s): J10.1 - Influenza due to other identified influenza virus with other respiratory manifestations Status: Acute Assessment and Plan: Patient presented On 01/18/2025 with influenza a pneumonia, Staph aureus bacteremia and pneumonia. Patient was treated with Tamiflu on 01/18, 01/21 and 01/22. Plan: would not entertain any additional Tamiflu at this time. (2) PNA (pneumonia): Code(s): J18.9 - Pneumonia, unspecified organism Status: Acute Assessment and Plan: Patient with no underlying lung disease. She has an unspecified autoimmune disease takes prednisone 1 time a year last use was 3 years ago. History of recurrent bronchitis but denies asthma or COPD. Blood cultures grew out Staph aureus sensitive to everything except tetracycline and sputum culture on 01/19/2025 grew out Staph aureus sensitive to everything except tetracycline. started on vancomycin and cefepime and doxycycline on 01/18 2025. Patient was switched to Ancef on 01/21/2025. Repeat blood cultures on 01/20/2025 negative x2. patient became afebrile on 01/23/2025. patient treated with Solu-Medrol 01/23 and 01/24. She had increased oxygen requirements on 01/25/2014 and was escalated from Ancef to meropenem and vancomycin (01/23 through 01/26). Currently the patient is on meropenem only (01/23 started). Patient had a CT scan of the chest that shows a cavity in the lingula, right middle lobe and possibly cavities in the consolidated area of the right lower lobe. There dense consolidations in the bases bilaterally and diffuse patchy infiltrates throughout the lungs. Linezolid added 01/28/25. Plan: patient with post influenza staph aureus pneumonia and bacteremia. she has a development of new cavities in her lungs bilaterally. I will send a QuantiFERON gold. I have discussed with ID pharmacy and patient should have been adequately covered for her Staph aureus since 01/18/2025, day 10. is unclear when these cavities developed after the CT scan on 01/18/2025. Will perform PEPITO to exclude endocarditis. I reviewed the MRI of the spine with Radiology and there is no evidence of osteomyelitis, diskitis or spinal abscess. Will continue meropenem and start linezolid today. Discussed with family in the room, Dr. Geronimo, and Leonardo Howard. will follow with you. History of Present Illness History of Present Illness Consult date: 01/28/25 Chief complaint: pna/flu/euglycemia dka Narrative: 01/27/2025: This is a new pulmonary consult for influenza a pneumonia and hypoxemia. 54-year-old with a history of diabetes, polycystic ovarian syndrome, Raynaud's, Sjogren's, spinal stenosis, DJD, mouth sores and an unspecified autoimmune disease. Patient seen a enterostomal therapy nurse from [place] in an out reach Clinic in [facility] and was diagnosed with a nonspecific autoimmune disease. She takes prednisone bursts for about a week every year. Her last use was approximately 3 years ago. Patient denies any history of childhood asthma, COPD but has had recurrent bronchitis episodes approximately once a year the last of which was 07/2020 for which she took antibiotics for 1 week and made a full recovery. Patient was at her baseline approximately 3 weeks ago and says she can walk 2 to 2-1/2 miles over 45-60 minutes with no respiratory limitations. She has no respiratory limitations in her activities of daily living. She is a never smoker and has no occupational exposures. Patient presented to the hospital on 01/18/2025 with shortness of breath, weakness and fatigue after she returned from a cruise To [facility] and [place] on 01/08/2025. On 01/14 the patient developed a cough with worsening shortness of breath. She lost her appetite and stopped eating or drinking on 01/16/2025. She developed shortness of breath on 01/18/2025 but did not want to go to a hospital in [place] so she flew home and family brought her straight from the airport to [facility]. She was tachypneic and extremely weak and was intubated. White blood cell count 10.3, 23% bands, patient was started on cefepime to, doxycycline and vancomycin for septic shock. She was started on Tamiflu in the emergency department. Patient received Tamiflu on 01/18, 01/21 and 01/22. Blood cultures grew out Staph aureus sensitive to everything except tetracycline and sputum culture on 01/19/2025 grew out Staph aureus sensitive to everything except tetracycline. Patient was switched to Ancef. Repeat blood cultures on 01/21/2020 5- x2. patient became afebrile on 01/23/2025. She had increased oxygen requirements on 01/25/2014 and was escalated from Ancef to meropenem and vancomycin (01/23 through 01/26). Currently the patient is on meropenem only (01/23 started). Patient had a CT scan of the chest that shows a cavity in the lingula, right middle lobe and possibly cavities in the consolidated area of the right lower lobe. There dense consolidations in the bases bilaterally and diffuse patchy infiltrates throughout the lungs. Linezolid added 01/28/25. 01/28/2025: Patient complains of a dry cough that has persisted since she was extubated on 01/25. She denies fever but feels warm with no chills or rigors. She has no rest shortness of breath. Currently she is on 3 L with saturations 92-96%. She can do incentive spirometry and 1000 mL but this does provoke a cough. Her last fever was 614 at 6:38 a.m.. White blood cell count 16.4, creatinine 0.49, last CRP was 17.4 decreased from 45 on admission. Last procalcitonin is 3.6, decreased from a peak of 12.5 on 01/19/2025. Patient developed a right foot drop has a history of chronic back pain. DATA: 01/19/2025: Echo Summary 1. Left ventricular chamber dimension is normal. 2. Left ventricular systolic function is normal, estimated at 60-65. 3. The left ventricular diastolic function is grade I diastolic dysfunction. 4. Right ventricular chamber dimension is mildly enlarged. 5. Right ventricular systolic function is normal. 6. Right atrial chamber dimension is mildly enlarged. 7. There is mild to moderate tricuspid valve regurgitation. Right Ventricle Right ventricular chamber dimension is mildly enlarged. Right ventricular systolic function is normal. Left Atria Left atrial chamber dimension is normal. Right Atria Right atrial chamber dimension is mildly enlarged. Atrial Septum Intact interatrial septum visualized by color flow imaging. RVSP 64. 01/27/2025 cervical, thoracic, lumbar spine MRI: IMPRESSION: 1. . 20 degrees lumbar dextroscoliosis with severe spondylosis. IMPRESSION: 1. 15 degrees thoracic levoscoliosis with mild spondylosis. 2. Consolidation in the bilateral lower lobes which could represent atelectasis or pneumonia. IMPRESSION: 1. Mild cervical spondylosis. 01/18/2025: CTA chest PE protocol Ordering provider: Maxi Macedo MD History: 54 years Female with . sob . Comparison: None. Findings: Endotracheal tube and nasogastric tube are noted. PULMONARY ARTERIES: No pulmonary embolus. VISUALIZED THORACIC INLET: Normal. MEDIASTINUM: Aorta/coronary arteries: Mild atheromatous disease. Heart/other: The heart is not enlarged. Lymph nodes: No mediastinal or hilar adenopathy. Small prevascular lymph nodes are noted. LUNGS: Bilateral lower lobe and lingular pneumonia is noted. Pneumonia in the right upper lobe posteriorly is also seen. Minimal consolidation also seen in the middle lobe. No pulmonary nodules or masses. No effusions. No pneumothorax. VISUALIZED UPPER ABDOMEN: Fat infiltration of the liver. Status post cholecystectomy. Otherwise, the visualized upper abdomen is normal. MUSCULOSKELETAL: Soft tissues: The superficial soft tissues are normal. Bones: Age appropriate degenerative changes of the spine. IMPRESSION: 1. No pulmonary embolism. 2. Bilateral pneumonia in the lower lobes. Pneumonia in the lingula. Minimal changes of pneumonia in the right middle lobe. Pneumonia in the right upper lobe posteriorly. Follow-up to resolution is advised. Review of Systems 2 Constitutional: Constitutional: Reports no additional constitutional complaints Eyes: Eyes: Reports no additional eye complaints ENT: Reports system reviewed and no additional complaints, except as documented Cardiovascular: Cardiovascular: Reports no additional cardiovascular complaints Respiratory: Respiratory: Reports no additional respiratory complaints Gastrointestinal: Gastrointestinal: Reports no additional gastrointestinal complaints Musculoskeletal: Musculoskeletal: Reports no additional musculoskeletal complaints Neurologic: Reports system reviewed and no additional complaints, except as documented Psychiatric: Psychiatric: Reports no additional psychiatric complaints Endocrine: Endocrine: Reports no additional endocrine complaints Hematologic/Lymphatic: Hematologic/Lymphatic: Reports no additional hematologic/lymphatic complaints Allergic/Immunologic: Allergic/Immunologic: Reports no additional allergic/immunologic complaints [facility] Past Medical History Medical History (Updated 01/28/25 @ 12:48 by Lauren Griffin MD) Influenza A Chronic low blood pressure Family History Family History Father Diabetes mellitus Mother Diabetes mellitus Other Family history of cardiovascular disease Hypertension Social History Social History Smoking status: Never smoker Alcohol intake: current Drinks per week: 1 Substance use type: does not use Spiritual care concerns: No Meds Home Medications and Allergies Home Medications ?Medication ?Instructions ?Recorded ?Confirmed ?Type atorvastatin 20 mg tablet 20 mg PO QPM 01/18/25 01/18/25 History cyclobenzaprine 10 mg tablet 10 mg PO TID 01/18/25 01/18/25 History empagliflozin 10 mg tablet 10 mg PO DAILY 01/18/25 01/18/25 History (Jardiance) estradiol 1 mg tablet 1 mg PO DAILY 01/18/25 01/18/25 History metformin 500 mg tablet,extended 500 mg PO .Q12HR 01/18/25 01/18/25 History release 24 hr metoprolol succinate 50 mg 50 mg PO DAILY 01/18/25 01/18/25 History tablet,extended release 24 hr nabumetone 750 mg tablet 750 mg PO .q12hr 01/18/25 01/18/25 History semaglutide 2 mg/dose (8 mg/3 mL) 2 mg subcut WEEKLY 01/18/25 01/18/25 History subcutaneous pen injector (Ozempic) spironolactone 100 mg tablet 100 mg PO Q12H 01/18/25 01/18/25 History Allergies Allergy/AdvReac Type Severity Reaction Status Date / Time Sulfa (Sulfonamide Allergy Unknown Rash Verified 01/18/25 16:13 Antibiotics) Vital Signs Vital Signs - 24 hr 01/27/25 15:48 01/27/25 16:00 01/27/25 16:00 Temperature 36.2 C L Pulse Rate 103 H 102 H Respiratory Rate 18 Blood Pressure 129/67 Pulse Oximetry 97 97 Oxygen Delivery Nasal Cannula Oxygen Flow Rate 4 01/27/25 16:52 01/27/25 18:00 01/27/25 19:45 Temperature 37.0 C Pulse Rate 77 116 H Respiratory Rate 16 Blood Pressure 173/72 H 120/61 Pulse Oximetry 95 Oxygen Delivery Oxygen Flow Rate 06/18/25 20:00 01/27/25 20:00 01/27/25 20:57 Temperature Pulse Rate 115 H 112 H 118 H Respiratory Rate Blood Pressure Pulse Oximetry 95 Oxygen Delivery Nasal Cannula Oxygen Flow Rate 4 01/27/25 22:00 01/27/25 23:18 01/27/25 23:41 Temperature 37.1 C Pulse Rate 110 H 99 103 H Respiratory Rate 16 Blood Pressure 98/54 L Pulse Oximetry 95 94 Oxygen Delivery Nasal Cannula Oxygen Flow Rate 5 01/28/25 00:00 01/28/25 03:48 01/28/25 04:00 Temperature 37.1 C Pulse Rate 102 H 101 H 101 H Respiratory Rate 16 Blood Pressure 105/54 L Pulse Oximetry 90 Oxygen Delivery Oxygen Flow Rate 01/28/25 04:00 01/28/25 06:00 01/28/25 07:39 Temperature 36.7 C Pulse Rate 101 H 104 H 104 H Respiratory Rate 18 Blood Pressure 119/61 Pulse Oximetry 93 92 Oxygen Delivery Nasal Cannula Oxygen Flow Rate 5 01/28/25 08:00 01/28/25 08:10 01/28/25 08:32 Temperature Pulse Rate 110 H 109 H 111 H Respiratory Rate 20 Blood Pressure Pulse Oximetry 86 L Oxygen Delivery High Flow Nasal Cannula Oxygen Flow Rate 8 01/28/25 10:00 01/28/25 11:59 01/28/25 12:00 Temperature 36.4 C Pulse Rate 96 107 H 105 H Respiratory Rate 20 Blood Pressure 111/61 Pulse Oximetry 96 Oxygen Delivery Oxygen Flow Rate 01/28/25 14:00 Temperature Pulse Rate 124 H Respiratory Rate Blood Pressure Pulse Oximetry Oxygen Delivery Oxygen Flow Rate Exam 2 Const: General: cooperative, healthy appearing and comfortable O rientation/consciousness: oriented to person, oriented to place and oriented to time Other: no respiratory distress on 3 L HENMT: Head: normal to inspection Ears: hearing grossly normal bilaterally Eyes: General: appearance normal, both eyes and all related structures Neck: Neck: normal visual inspection Chest: Chest palpation & inspection: normal inspection of the chest Resp: Effort & Inspection: normal respiratory effort and able to speak in complete sentences Auscultation: crackles, no rales, no rhonchi, no wheezes and lung sounds not diminished Other: diffuse crackles throughout with decreased breath sounds in the bases. No wheezes. Cardio: Jugular venous distension: no JVD GI: Inspection: normal to inspection GI Palp: No abdominal tenderness Skin: General skin exam: normal color Neuro: General: oriented to person, oriented to place and oriented to time Extrem: General: normal to inspection Other: Inability to raise right foot. Loss of sensation top of foot. Psych: Appearance: grossly normal Results Laboratory Findings 01/28/25 04:06 01/28/25 04:06 ABG, PT/INR, D-dimer: ABG ABG pH 7.523 (7.350-7.450) H* 01/25/25 10:31 ABG pCO2 35.0 mmHg (35.0-45.0) 01/25/25 10:31 ABG pO2 70.2 mmHg (80.0-100.0) L 01/25/25 10:31 ABG O2 Saturation 95.7 % (95.0-100.0) 01/25/25 10:31 PT/INR, D-dimer PT 16.7 Seconds (11.1-14.7) H 01/21/25 03:57 INR 1.4 01/21/25 03:57 Abnormal lab findings: Abnormal Labs 01/18/25 01/18/25 01/18/25 13:22 13:25 13:26 WBC 10.3 H RBC Hgb 15.8 H Hct 49.8 H MCV MCHC 31.7 L RDW Plt Count MPV Immature Gran % (Auto) Neut % (Auto) Lymph % (Auto) [place] % (Auto) Lymph # (Auto) [place] # (Auto) Abs Immat Gran (auto) Absolute Neuts (auto) Absolute Nucleated RBC Neutrophils % (Manual) 45 L Band Neutrophils % 23 H Lymphocytes % (Manual) 11 L Monocytes % (Manual) 19 H Abs Neuts (Manual) 7.00 H Abs Lymphs (Manual) Abs Monocytes (Manual) 1.95 H Abs Basophils (Manual) PT 15.4 H ABG pH 7.216 L* ABG pCO2 15.4 L* ABG pO2 72.4 L ABG HCO3 6.1 L ABG O2 Saturation 92.0 L ABG O2 Content Reduced Hemoglobin Total Hemoglobin Sodium Potassium Chloride Carbon Dioxide < 5 L Anion Gap BUN 24 H Creatinine 1.53 H Estimated GFR 36 L Glucose 236 H POC Capillary Glucose 219 H Hemoglobin A1c Calcium 10.5 H Phosphorus Magnesium AST 56 H ALT 36 H Total Creatine Kinase C-Reactive Protein > 45.0 H Total Protein 8.9 H Albumin Beta-Hydroxybutyrate/Acetoacetate 7.79 H TSH Total T3 Ur Specific [place] Urine Protein Urine Glucose (UA) Urine Ketones Vancomycin Trough Random Vancomycin Influenza A (RT-PCR) 01/18/25 01/18/25 01/18/25 13:39 14:55 15:06 WBC RBC Hgb Hct MCV MCHC RDW Plt Count MPV Immature Gran % (Auto) Neut % (Auto) Lymph % (Auto) [place] % (Auto) Lymph # (Auto) [place] # (Auto) Abs Immat Gran (auto) Absolute Neuts (auto) Absolute Nucleated RBC Neutrophils % (Manual) Band Neutrophils % Lymphocytes % (Manual) Monocytes % (Manual) Abs Neuts (Manual) Abs Lymphs (Manual) Abs Monocytes (Manual) Abs Basophils (Manual) PT ABG pH 7.070 L* ABG pCO2 28.7 L ABG pO2 148.5 H ABG HCO3 8.1 L ABG O2 Saturation ABG O2 Content Reduced Hemoglobin Total Hemoglobin Sodium Potassium Chloride Carbon Dioxide Anion Gap BUN Creatinine Estimated GFR Glucose POC Capillary Glucose Hemoglobin A1c Calcium Phosphorus Magnesium AST ALT Total Creatine Kinase C-Reactive Protein Total Protein Albumin Beta-Hydroxybutyrate/Acetoacetate TSH Total T3 Ur Specific [place] 1.042 H Urine Protein 3+ H Urine Glucose (UA) 3+ H Urine Ketones 3+ H Vancomycin Trough Random Vancomycin Influenza A (RT-PCR) Positive A 01/18/25 01/18/25 01/18/25 15:35 16:35 16:47 WBC RBC Hgb Hct MCV MCHC RDW Plt Count MPV Immature Gran % (Auto) Neut % (Auto) Lymph % (Auto) [place] % (Auto) Lymph # (Auto) [place] # (Auto) Abs Immat Gran (auto) Absolute Neuts (auto) Absolute Nucleated RBC Neutrophils % (Manual) Band Neutrophils % Lymphocytes % (Manual) Monocytes % (Manual) Abs Neuts (Manual) Abs Lymphs (Manual) Abs Monocytes (Manual) Abs Basophils (Manual) PT ABG pH 7.080 L* 7.163 L* ABG pCO2 30.5 L 26.4 L ABG pO2 146.5 H 71.2 L ABG HCO3 8.8 L 9.3 L ABG O2 Saturation 90.1 L ABG O2 Content Reduced Hemoglobin Total Hemoglobin Sodium Potassium Chloride Carbon Dioxide Anion Gap BUN Creatinine Estimated GFR Glucose POC Capillary Glucose 151 H Hemoglobin A1c Calcium Phosphorus Magnesium AST ALT Total Creatine Kinase C-Reactive Protein Total Protein Albumin Beta-Hydroxybutyrate/Acetoacetate TSH Total T3 Ur Specific [place] Urine Protein Urine Glucose (UA) Urine Ketones Vancomycin Trough Random Vancomycin Influenza A (RT-PCR) 01/18/25 01/18/25 01/18/25 17:53 18:34 19:20 WBC RBC Hgb Hct MCV MCHC RDW Plt Count MPV Immature Gran % (Auto) Neut % (Auto) Lymph % (Auto) [place] % (Auto) Lymph # (Auto) [place] # (Auto) Abs Immat Gran (auto) Absolute Neuts (auto) Absolute Nucleated RBC Neutrophils % (Manual) Band Neutrophils % Lymphocytes % (Manual) Monocytes % (Manual) Abs Neuts (Manual) Abs Lymphs (Manual) Abs Monocytes (Manual) Abs Basophils (Manual) PT ABG pH ABG pCO2 ABG pO2 ABG HCO3 ABG O2 Saturation ABG O2 Content Reduced Hemoglobin Total Hemoglobin Sodium Potassium Chloride 112 H Carbon Dioxide 9 L Anion Gap 22 H BUN 21 H Creatinine Estimated GFR Glucose 133 H POC Capillary Glucose 129 H 136 H Hemoglobin A1c 5.9 H Calcium Phosphorus Magnesium AST ALT Total Creatine Kinase C-Reactive Protein Total Protein Albumin Beta-Hydroxybutyrate/Acetoacetate TSH Total T3 Ur Specific [place] Urine Protein Urine Glucose (UA) Urine Ketones Vancomycin Trough Random Vancomycin Influenza A (RT-PCR) 01/18/25 01/18/25 01/18/25 20:12 21:15 21:39 WBC RBC Hgb Hct MCV MCHC RDW Plt Count MPV Immature Gran % (Auto) Neut % (Auto) Lymph % (Auto) [place] % (Auto) Lymph # (Auto) [place] # (Auto) Abs Immat Gran (auto) Absolute Neuts (auto) Absolute Nucleated RBC Neutrophils % (Manual) Band Neutrophils % Lymphocytes % (Manual) Monocytes % (Manual) Abs Neuts (Manual) Abs Lymphs (Manual) Abs Monocytes (Manual) Abs Basophils (Manual) PT ABG pH ABG pCO2 24.8 L ABG pO2 ABG HCO3 15.3 L ABG O2 Saturation ABG O2 Content Reduced Hemoglobin Total Hemoglobin Sodium Potassium Chloride Carbon Dioxide Anion Gap BUN Creatinine Estimated GFR Glucose POC Capillary Glucose 198 H 182 H Hemoglobin A1c Calcium Phosphorus Magnesium AST ALT Total Creatine Kinase C-Reactive Protein Total Protein Albumin Beta-Hydroxybutyrate/Acetoacetate TSH Total T3 Ur Specific [place] Urine Protein Urine Glucose (UA) Urine Ketones Vancomycin Trough Random Vancomycin Influenza A (RT-PCR) 01/18/25 01/18/25 01/18/25 22:14 22:49 23:07 WBC RBC Hgb Hct MCV MCHC RDW Plt Count MPV Immature Gran % (Auto) Neut % (Auto) Lymph % (Auto) [place] % (Auto) Lymph # (Auto) [place] # (Auto) Abs Immat Gran (auto) Absolute Neuts (auto) Absolute Nucleated RBC Neutrophils % (Manual) Band Neutrophils % Lymphocytes % (Manual) Monocytes % (Manual) Abs Neuts (Manual) Abs Lymphs (Manual) Abs Monocytes (Manual) Abs Basophils (Manual) PT ABG pH ABG pCO2 ABG pO2 ABG HCO3 ABG O2 Saturation ABG O2 Content Reduced Hemoglobin Total Hemoglobin Sodium Potassium Chloride 115 H Carbon Dioxide 14 L Anion Gap BUN 18 H Creatinine Estimated GFR Glucose 165 H POC Capillary Glucose 167 H 164 H Hemoglobin A1c Calcium Phosphorus Magnesium AST ALT Total Creatine Kinase C-Reactive Protein Total Protein Albumin Beta-Hydroxybutyrate/Acetoacetate TSH Total T3 Ur Specific [place] Urine Protein Urine Glucose (UA) Urine Ketones Vancomycin Trough Random Vancomycin Influenza A (RT-PCR) 01/19/25 01/19/25 01/19/25 00:03 00:49 04:33 WBC RBC 3.74 L Hgb Hct 34.9 L MCV MCHC RDW Plt Count MPV Immature Gran % (Auto) Neut % (Auto) Lymph % (Auto) [place] % (Auto) Lymph # (Auto) [place] # (Auto) Abs Immat Gran (auto) Absolute Neuts (auto) Absolute Nucleated RBC Neutrophils % (Manual) Band Neutrophils % 22 H Lymphocytes % (Manual) 13.0 L Monocytes % (Manual) Abs Neuts (Manual) Abs Lymphs (Manual) 0.76 L Abs Monocytes (Manual) Abs Basophils (Manual) PT ABG pH ABG pCO2 ABG pO2 ABG HCO3 ABG O2 Saturation ABG O2 Content Reduced Hemoglobin Total Hemoglobin Sodium Potassium Chloride 116 H 116 H Carbon Dioxide 16 L 17 L Anion Gap BUN 20 H Creatinine Estimated GFR Glucose 139 H 133 H POC Capillary Glucose 152 H Hemoglobin A1c Calcium Phosphorus Magnesium AST 63 H ALT Total Creatine Kinase C-Reactive Protein 43.3 H Total Protein 5.5 L Albumin 2.5 L Beta-Hydroxybutyrate/Acetoacetate TSH Total T3 Ur Specific [place] Urine Protein Urine Glucose (UA) Urine Ketones Vancomycin Trough Random Vancomycin Influenza A (RT-PCR) 01/19/25 01/19/25 01/19/25 04:43 07:40 12:06 WBC RBC Hgb Hct MCV MCHC RDW Plt Count MPV Immature Gran % (Auto) Neut % (Auto) Lymph % (Auto) [place] % (Auto) Lymph # (Auto) [place] # (Auto) Abs Immat Gran (auto) Absolute Neuts (auto) Absolute Nucleated RBC Neutrophils % (Manual) Band Neutrophils % Lymphocytes % (Manual) Monocytes % (Manual) Abs Neuts (Manual) Abs Lymphs (Manual) Abs Monocytes (Manual) Abs Basophils (Manual) PT ABG pH ABG pCO2 30.0 L ABG pO2 100.7 H ABG HCO3 17.0 L ABG O2 Saturation ABG O2 Content 12.8 L Reduced Hemoglobin Total Hemoglobin 9.3 L Sodium Potassium Chloride Carbon Dioxide Anion Gap BUN Creatinine Estimated GFR Glucose POC Capillary Glucose 131 H 149 H Hemoglobin A1c Calcium Phosphorus Magnesium AST ALT Total Creatine Kinase C-Reactive Protein Total Protein Albumin Beta-Hydroxybutyrate/Acetoacetate TSH Total T3 Ur Specific [place] Urine Protein Urine Glucose (UA) Urine Ketones Vancomycin Trough Random Vancomycin Influenza A (RT-PCR) 01/19/25 01/19/25 01/19/25 17:32 17:46 20:22 WBC RBC Hgb Hct MCV MCHC RDW Plt Count MPV Immature Gran % (Auto) Neut % (Auto) Lymph % (Auto) [place] % (Auto) Lymph # (Auto) [place] # (Auto) Abs Immat Gran (auto) Absolute Neuts (auto) Absolute Nucleated RBC Neutrophils % (Manual) Band Neutrophils % Lymphocytes % (Manual) Monocytes % (Manual) Abs Neuts (Manual) Abs Lymphs (Manual) Abs Monocytes (Manual) Abs Basophils (Manual) PT ABG pH ABG pCO2 ABG pO2 ABG HCO3 ABG O2 Saturation ABG O2 Content Reduced Hemoglobin Total Hemoglobin Sodium Potassium Chloride 110 H Carbon Dioxide 19 L Anion Gap 15 H BUN Creatinine Estimated GFR Glucose 127 H POC Capillary Glucose 133 H 146 H Hemoglobin A1c Calcium Phosphorus Magnesium AST ALT Total Creatine Kinase C-Reactive Protein Total Protein Albumin Beta-Hydroxybutyrate/Acetoacetate TSH Total T3 Ur Specific [place] Urine Protein Urine Glucose (UA) Urine Ketones Vancomycin Trough Random Vancomycin < 5.0 L Influenza A (RT-PCR) 01/20/25 01/20/25 01/20/25 00:00 05:05 05:51 WBC RBC Hgb Hct MCV MCHC RDW Plt Count MPV Immature Gran % (Auto) Neut % (Auto) Lymph % (Auto) [place] % (Auto) Lymph # (Auto) [place] # (Auto) Abs Immat Gran (auto) Absolute Neuts (auto) Absolute Nucleated RBC Neutrophils % (Manual) Band Neutrophils % Lymphocytes % (Manual) Monocytes % (Manual) Abs Neuts (Manual) Abs Lymphs (Manual) Abs Monocytes (Manual) Abs Basophils (Manual) PT ABG pH ABG pCO2 ABG pO2 ABG HCO3 20.2 L ABG O2 Saturation ABG O2 Content 14.5 L Reduced Hemoglobin Total Hemoglobin 10.7 L Sodium Potassium Chloride Carbon Dioxide Anion Gap BUN Creatinine Estimated GFR Glucose POC Capillary Glucose 172 H 202 H Hemoglobin A1c Calcium Phosphorus Magnesium AST ALT Total Creatine Kinase C-Reactive Protein Total Protein Albumin Beta-Hydroxybutyrate/Acetoacetate TSH Total T3 Ur Specific [place] Urine Protein Urine Glucose (UA) Urine Ketones Vancomycin Trough Random Vancomycin Influenza A (RT-PCR) 01/20/25 01/20/25 01/20/25 05:55 09:07 12:23 WBC 11.5 H RBC 2.97 L Hgb 9.6 L Hct 28.5 L MCV MCHC RDW 14.6 H Plt Count 120 L MPV Immature Gran % (Auto) Neut % (Auto) Lymph % (Auto) [place] % (Auto) Lymph # (Auto) [place] # (Auto) Abs Immat Gran (auto) Absolute Neuts (auto) Absolute Nucleated RBC Neutrophils % (Manual) 38 L Band Neutrophils % 53 H Lymphocytes % (Manual) 8 L Monocytes % (Manual) 1 L Abs Neuts (Manual) 10.46 H Abs Lymphs (Manual) 0.92 L Abs Monocytes (Manual) Abs Basophils (Manual) PT ABG pH ABG pCO2 ABG pO2 ABG HCO3 ABG O2 Saturation ABG O2 Content Reduced Hemoglobin Total Hemoglobin Sodium 146 H Potassium Chloride 111 H Carbon Dioxide 20 L Anion Gap 15 H BUN 24 H Creatinine 1.08 H Estimated GFR 53 L Glucose 202 H POC Capillary Glucose 220 H 205 H Hemoglobin A1c Calcium Phosphorus 1.3 L Magnesium 2.4 H AST 68 H ALT Total Creatine Kinase C-Reactive Protein 43.3 H Total Protein 5.9 L Albumin 3.2 L Beta-Hydroxybutyrate/Acetoacetate TSH Total T3 Ur Specific [place] Urine Protein Urine Glucose (UA) Urine Ketones Vancomycin Trough Random Vancomycin Influenza A (RT-PCR) 01/20/25 01/20/25 01/20/25 16:45 18:45 20:19 WBC RBC Hgb Hct MCV MCHC RDW Plt Count MPV Immature Gran % (Auto) Neut % (Auto) Lymph % (Auto) [place] % (Auto) Lymph # (Auto) [place] # (Auto) Abs Immat Gran (auto) Absolute Neuts (auto) Absolute Nucleated RBC Neutrophils % (Manual) Band Neutrophils % Lymphocytes % (Manual) Monocytes % (Manual) Abs Neuts (Manual) Abs Lymphs (Manual) Abs Monocytes (Manual) Abs Basophils (Manual) PT ABG pH ABG pCO2 ABG pO2 ABG HCO3 ABG O2 Saturation ABG O2 Content Reduced Hemoglobin Total Hemoglobin Sodium Potassium Chloride Carbon Dioxide Anion Gap BUN Creatinine Estimated GFR Glucose POC Capillary Glucose 208 H 175 H Hemoglobin A1c Calcium Phosphorus Magnesium AST ALT Total Creatine Kinase C-Reactive Protein Total Protein Albumin Beta-Hydroxybutyrate/Acetoacetate TSH Total T3 Ur Specific [place] Urine Protein Urine Glucose (UA) Urine Ketones Vancomycin Trough Random Vancomycin < 5.0 L Influenza A (RT-PCR) 01/20/25 01/21/25 01/21/25 23:58 03:57 04:45 WBC 15.5 H RBC 3.12 L Hgb 9.9 L Hct 29.2 L MCV MCHC RDW 14.7 H Plt Count 133 L MPV Immature Gran % (Auto) Neut % (Auto) Lymph % (Auto) [place] % (Auto) Lymph # (Auto) [place] # (Auto) Abs Immat Gran (auto) Absolute Neuts (auto) Absolute Nucleated RBC Neutrophils % (Manual) 85 H Band Neutrophils % 12 H Lymphocytes % (Manual) 1.0 L Monocytes % (Manual) 2 L Abs Neuts (Manual) 15.03 H Abs Lymphs (Manual) 0.15 L Abs Monocytes (Manual) Abs Basophils (Manual) PT 16.7 H ABG pH 7.480 H ABG pCO2 33.9 L ABG pO2 ABG HCO3 ABG O2 Saturation ABG O2 Content 14.5 L Reduced Hemoglobin Total Hemoglobin 10.5 L Sodium 149 H Potassium Chloride 115 H Carbon Dioxide Anion Gap BUN 24 H Creatinine Estimated GFR Glucose 186 H POC Capillary Glucose 203 H Hemoglobin A1c Calcium Phosphorus < 1.0 L Magnesium 2.6 H AST 65 H ALT Total Creatine Kinase 764 H C-Reactive Protein 31.7 H Total Protein 5.8 L Albumin 2.9 L Beta-Hydroxybutyrate/Acetoacetate TSH 0.070 L Total T3 Ur Specific [place] Urine Protein Urine Glucose (UA) Urine Ketones Vancomycin Trough Random Vancomycin Influenza A (RT-PCR) 01/21/25 01/21/25 01/21/25 08:28 11:48 16:31 WBC RBC Hgb Hct MCV MCHC RDW Plt Count MPV Immature Gran % (Auto) Neut % (Auto) Lymph % (Auto) [place] % (Auto) Lymph # (Auto) [place] # (Auto) Abs Immat Gran (auto) Absolute Neuts (auto) Absolute Nucleated RBC Neutrophils % (Manual) Band Neutrophils % Lymphocytes % (Manual) Monocytes % (Manual) Abs Neuts (Manual) Abs Lymphs (Manual) Abs Monocytes (Manual) Abs Basophils (Manual) PT ABG pH ABG pCO2 ABG pO2 ABG HCO3 ABG O2 Saturation ABG O2 Content Reduced Hemoglobin Total Hemoglobin Sodium Potassium Chloride Carbon Dioxide Anion Gap BUN Creatinine Estimated GFR Glucose POC Capillary Glucose 185 H 180 H 179 H Hemoglobin A1c Calcium Phosphorus Magnesium AST ALT Total Creatine Kinase C-Reactive Protein Total Protein Albumin Beta-Hydroxybutyrate/Acetoacetate TSH Total T3 Ur Specific [place] Urine Protein Urine Glucose (UA) Urine Ketones Vancomycin Trough Random Vancomycin Influenza A (RT-PCR) 01/21/25 01/21/25 01/22/25 21:01 23:54 04:28 WBC RBC Hgb Hct MCV MCHC RDW Plt Count MPV Immature Gran % (Auto) Neut % (Auto) Lymph % (Auto) [place] % (Auto) Lymph # (Auto) [place] # (Auto) Abs Immat Gran (auto) Absolute Neuts (auto) Absolute Nucleated RBC Neutrophils % (Manual) Band Neutrophils % Lymphocytes % (Manual) Monocytes % (Manual) Abs Neuts (Manual) Abs Lymphs (Manual) Abs Monocytes (Manual) Abs Basophils (Manual) PT ABG pH ABG pCO2 ABG pO2 ABG HCO3 ABG O2 Saturation ABG O2 Content Reduced Hemoglobin Total Hemoglobin Sodium Potassium Chloride Carbon Dioxide Anion Gap BUN Creatinine Estimated GFR Glucose POC Capillary Glucose 189 H 185 H 166 H Hemoglobin A1c Calcium Phosphorus Magnesium AST ALT Total Creatine Kinase C-Reactive Protein Total Protein Albumin Beta-Hydroxybutyrate/Acetoacetate TSH Total T3 Ur Specific [place] Urine Protein Urine Glucose (UA) Urine Ketones Vancomycin Trough Random Vancomycin Influenza A (RT-PCR) 01/22/25 01/22/25 01/22/25 04:46 05:16 08:53 WBC 16.6 H RBC 3.26 L Hgb 10.3 L Hct 30.8 L MCV MCHC RDW 15.0 H Plt Count MPV Immature Gran % (Auto) Neut % (Auto) Lymph % (Auto) [place] % (Auto) Lymph # (Auto) [place] # (Auto) Abs Immat Gran (auto) Absolute Neuts (auto) Absolute Nucleated RBC Neutrophils % (Manual) 76 H Band Neutrophils % 11 H Lymphocytes % (Manual) 9.0 L Monocytes % (Manual) Abs Neuts (Manual) 14.44 H Abs Lymphs (Manual) Abs Monocytes (Manual) Abs Basophils (Manual) 0.16 H PT ABG pH ABG pCO2 ABG pO2 66.6 L ABG HCO3 28.4 H ABG O2 Saturation 93.9 L ABG O2 Content 14.2 L Reduced Hemoglobin Total Hemoglobin 10.8 L Sodium 150 H Potassium Chloride 114 H Carbon Dioxide Anion Gap BUN 27 H Creatinine 0.58 L Estimated GFR Glucose 152 H POC Capillary Glucose 170 H Hemoglobin A1c Calcium Phosphorus Magnesium 2.5 H AST 58 H ALT Total Creatine Kinase C-Reactive Protein Total Protein 6.2 L Albumin 3.0 L Beta-Hydroxybutyrate/Acetoacetate TSH Total T3 Ur Specific [place] Urine Protein Urine Glucose (UA) Urine Ketones Vancomycin Trough Random Vancomycin Influenza A (RT-PCR) 01/22/25 01/22/25 01/22/25 11:25 13:20 16:08 WBC RBC Hgb Hct MCV MCHC RDW Plt Count MPV Immature Gran % (Auto) Neut % (Auto) Lymph % (Auto) [place] % (Auto) Lymph # (Auto) [place] # (Auto) Abs Immat Gran (auto) Absolute Neuts (auto) Absolute Nucleated RBC Neutrophils % (Manual) Band Neutrophils % Lymphocytes % (Manual) Monocytes % (Manual) Abs Neuts (Manual) Abs Lymphs (Manual) Abs Monocytes (Manual) Abs Basophils (Manual) PT ABG pH ABG pCO2 ABG pO2 ABG HCO3 ABG O2 Saturation ABG O2 Content Reduced Hemoglobin Total Hemoglobin Sodium Potassium Chloride Carbon Dioxide Anion Gap BUN Creatinine Estimated GFR Glucose POC Capillary Glucose 162 H 185 H 158 H Hemoglobin A1c Calcium Phosphorus Magnesium AST ALT Total Creatine Kinase C-Reactive Protein Total Protein Albumin Beta-Hydroxybutyrate/Acetoacetate TSH Total T3 Ur Specific [place] Urine Protein Urine Glucose (UA) Urine Ketones Vancomycin Trough Random Vancomycin Influenza A (RT-PCR) 01/22/25 01/23/25 01/23/25 21:48 01:06 04:39 WBC RBC Hgb Hct MCV MCHC RDW Plt Count MPV Immature Gran % (Auto) Neut % (Auto) Lymph % (Auto) [place] % (Auto) Lymph # (Auto) [place] # (Auto) Abs Immat Gran (auto) Absolute Neuts (auto) Absolute Nucleated RBC Neutrophils % (Manual) Band Neutrophils % Lymphocytes % (Manual) Monocytes % (Manual) Abs Neuts (Manual) Abs Lymphs (Manual) Abs Monocytes (Manual) Abs Basophils (Manual) PT ABG pH 7.477 H ABG pCO2 ABG pO2 74.3 L ABG HCO3 27.1 H ABG O2 Saturation ABG O2 Content 14.4 L Reduced Hemoglobin Total Hemoglobin 10.8 L Sodium Potassium Chloride Carbon Dioxide Anion Gap BUN Creatinine Estimated GFR Glucose POC Capillary Glucose 173 H 193 H Hemoglobin A1c Calcium Phosphorus Magnesium AST ALT Total Creatine Kinase C-Reactive Protein Total Protein Albumin Beta-Hydroxybutyrate/Acetoacetate TSH Total T3 Ur Specific [place] Urine Protein Urine Glucose (UA) Urine Ketones Vancomycin Trough Random Vancomycin Influenza A (RT-PCR) 01/23/25 01/23/25 01/23/25 05:44 06:53 07:24 WBC 19.4 H RBC 3.07 L Hgb 9.9 L Hct 29.8 L MCV MCHC RDW 15.3 H Plt Count MPV 10.6 H Immature Gran % (Auto) 2.8 H Neut % (Auto) 81.0 H Lymph % (Auto) 5.9 L [place] % (Auto) 9.5 H Lymph # (Auto) [place] # (Auto) 1.9 H Abs Immat Gran (auto) 0.55 H Absolute Neuts (auto) 15.7 H Absolute Nucleated RBC 0.020 H Neutrophils % (Manual) Band Neutrophils % Lymphocytes % (Manual) Monocytes % (Manual) Abs Neuts (Manual) Abs Lymphs (Manual) Abs Monocytes (Manual) Abs Basophils (Manual) PT ABG pH ABG pCO2 ABG pO2 ABG HCO3 ABG O2 Saturation ABG O2 Content Reduced Hemoglobin Total Hemoglobin Sodium Potassium 3.3 L Chloride 108 H Carbon Dioxide 31 H Anion Gap BUN 21 H Creatinine 0.44 L Estimated GFR Glucose 180 H POC Capillary Glucose 188 H 199 H Hemoglobin A1c Calcium 8.2 L Phosphorus Magnesium AST 47 H ALT Total Creatine Kinase C-Reactive Protein Total Protein 6.0 L Albumin 2.7 L Beta-Hydroxybutyrate/Acetoacetate TSH Total T3 Ur Specific [place] Urine Protein Urine Glucose (UA) Urine Ketones Vancomycin Trough Random Vancomycin Influenza A (RT-PCR) 01/23/25 01/23/25 01/23/25 12:04 16:49 20:33 WBC RBC Hgb Hct MCV MCHC RDW Plt Count MPV Immature Gran % (Auto) Neut % (Auto) Lymph % (Auto) [place] % (Auto) Lymph # (Auto) [place] # (Auto) Abs Immat Gran (auto) Absolute Neuts (auto) Absolute Nucleated RBC Neutrophils % (Manual) Band Neutrophils % Lymphocytes % (Manual) Monocytes % (Manual) Abs Neuts (Manual) Abs Lymphs (Manual) Abs Monocytes (Manual) Abs Basophils (Manual) PT ABG pH ABG pCO2 ABG pO2 ABG HCO3 ABG O2 Saturation ABG O2 Content Reduced Hemoglobin Total Hemoglobin Sodium Potassium Chloride Carbon Dioxide Anion Gap BUN Creatinine Estimated GFR Glucose POC Capillary Glucose 193 H 233 H 224 H Hemoglobin A1c Calcium Phosphorus Magnesium AST ALT Total Creatine Kinase C-Reactive Protein Total Protein Albumin Beta-Hydroxybutyrate/Acetoacetate TSH Total T3 Ur Specific [place] Urine Protein Urine Glucose (UA) Urine Ketones Vancomycin Trough Random Vancomycin Influenza A (RT-PCR) 01/24/25 01/24/25 01/24/25 00:20 03:46 05:23 WBC 19.3 H RBC 3.19 L Hgb 10.1 L Hct 31.1 L MCV MCHC RDW 15.3 H Plt Count MPV 10.6 H Immature Gran % (Auto) 2.1 H Neut % (Auto) 90.6 H Lymph % (Auto) 3.5 L [place] % (Auto) Lymph # (Auto) 0.67 L [place] # (Auto) Abs Immat Gran (auto) 0.41 H Absolute Neuts (auto) 17.5 H Absolute Nucleated RBC Neutrophils % (Manual) Band Neutrophils % Lymphocytes % (Manual) Monocytes % (Manual) Abs Neuts (Manual) Abs Lymphs (Manual) Abs Monocytes (Manual) Abs Basophils (Manual) PT ABG pH ABG pCO2 ABG pO2 ABG HCO3 ABG O2 Saturation ABG O2 Content Reduced Hemoglobin Total Hemoglobin Sodium 149 H Potassium Chloride 112 H Carbon Dioxide Anion Gap BUN 30 H Creatinine 0.46 L Estimated GFR Glucose 256 H POC Capillary Glucose 227 H 230 H Hemoglobin A1c Calcium Phosphorus Magnesium 2.5 H AST 42 H ALT Total Creatine Kinase C-Reactive Protein 17.4 H Total Protein 6.2 L Albumin 2.8 L Beta-Hydroxybutyrate/Acetoacetate TSH Total T3 Ur Specific [place] Urine Protein Urine Glucose (UA) Urine Ketones Vancomycin Trough Random Vancomycin Influenza A (RT-PCR) 01/24/25 01/24/25 01/24/25 05:30 07:58 11:32 WBC RBC Hgb Hct MCV MCHC RDW Plt Count MPV Immature Gran % (Auto) Neut % (Auto) Lymph % (Auto) [place] % (Auto) Lymph # (Auto) [place] # (Auto) Abs Immat Gran (auto) Absolute Neuts (auto) Absolute Nucleated RBC Neutrophils % (Manual) Band Neutrophils % Lymphocytes % (Manual) Monocytes % (Manual) Abs Neuts (Manual) Abs Lymphs (Manual) Abs Monocytes (Manual) Abs Basophils (Manual) PT ABG pH 7.477 H ABG pCO2 ABG pO2 71.6 L ABG HCO3 27.3 H ABG O2 Saturation ABG O2 Content 15.1 L Reduced Hemoglobin Total Hemoglobin 11.4 L Sodium Potassium Chloride Carbon Dioxide Anion Gap BUN Creatinine Estimated GFR Glucose POC Capillary Glucose 256 H 283 H Hemoglobin A1c Calcium Phosphorus Magnesium AST ALT Total Creatine Kinase C-Reactive Protein Total Protein Albumin Beta-Hydroxybutyrate/Acetoacetate TSH Total T3 Ur Specific [place] Urine Protein Urine Glucose (UA) Urine Ketones Vancomycin Trough Random Vancomycin Influenza A (RT-PCR) 01/24/25 01/24/25 01/24/25 13:49 17:56 21:32 WBC RBC Hgb Hct MCV MCHC RDW Plt Count MPV Immature Gran % (Auto) Neut % (Auto) Lymph % (Auto) [place] % (Auto) Lymph # (Auto) [place] # (Auto) Abs Immat Gran (auto) Absolute Neuts (auto) Absolute Nucleated RBC Neutrophils % (Manual) Band Neutrophils % Lymphocytes % (Manual) Monocytes % (Manual) Abs Neuts (Manual) Abs Lymphs (Manual) Abs Monocytes (Manual) Abs Basophils (Manual) PT ABG pH ABG pCO2 ABG pO2 ABG HCO3 ABG O2 Saturation ABG O2 Content Reduced Hemoglobin Total Hemoglobin Sodium Potassium Chloride Carbon Dioxide Anion Gap BUN Creatinine Estimated GFR Glucose POC Capillary Glucose 276 H 286 H 330 H Hemoglobin A1c Calcium Phosphorus Magnesium AST ALT Total Creatine Kinase C-Reactive Protein Total Protein Albumin Beta-Hydroxybutyrate/Acetoacetate TSH Total T3 Ur Specific [place] Urine Protein Urine Glucose (UA) Urine Ketones Vancomycin Trough Random Vancomycin Influenza A (RT-PCR) 01/24/25 01/25/25 01/25/25 21:34 02:07 05:20 WBC 21.7 H RBC 2.98 L Hgb 9.6 L Hct 29.5 L MCV MCHC RDW 15.1 H Plt Count 402 H MPV 10.5 H Immature Gran % (Auto) 1.4 H Neut % (Auto) 86.0 H Lymph % (Auto) 6.9 L [place] % (Auto) Lymph # (Auto) [place] # (Auto) 1.2 H Abs Immat Gran (auto) 0.31 H Absolute Neuts (auto) 18.6 H Absolute Nucleated RBC Neutrophils % (Manual) Band Neutrophils % Lymphocytes % (Manual) Monocytes % (Manual) Abs Neuts (Manual) Abs Lymphs (Manual) Abs Monocytes (Manual) Abs Basophils (Manual) PT ABG pH ABG pCO2 ABG pO2 ABG HCO3 ABG O2 Saturation ABG O2 Content Reduced Hemoglobin Total Hemoglobin Sodium Potassium 3.2 L Chloride 110 H Carbon Dioxide 32 H Anion Gap 3 L BUN 32 H Creatinine 0.49 L Estimated GFR Glucose 237 H POC Capillary Glucose 291 H Hemoglobin A1c Calcium Phosphorus 2.0 L Magnesium 2.4 H AST 49 H ALT Total Creatine Kinase C-Reactive Protein Total Protein 5.6 L Albumin 2.6 L Beta-Hydroxybutyrate/Acetoacetate TSH Total T3 Ur Specific [place] Urine Protein Urine Glucose (UA) Urine Ketones Vancomycin Trough 8.8 L Random Vancomycin Influenza A (RT-PCR) 01/25/25 01/25/25 01/25/25 05:28 07:32 10:31 WBC RBC Hgb Hct MCV MCHC RDW Plt Count MPV Immature Gran % (Auto) Neut % (Auto) Lymph % (Auto) [place] % (Auto) Lymph # (Auto) [place] # (Auto) Abs Immat Gran (auto) Absolute Neuts (auto) Absolute Nucleated RBC Neutrophils % (Manual) Band Neutrophils % Lymphocytes % (Manual) Monocytes % (Manual) Abs Neuts (Manual) Abs Lymphs (Manual) Abs Monocytes (Manual) Abs Basophils (Manual) PT ABG pH 7.511 H* 7.523 H* ABG pCO2 ABG pO2 70.2 L ABG HCO3 27.6 H 28.1 H ABG O2 Saturation ABG O2 Content 15.4 L 14.7 L Reduced Hemoglobin 5.4 H Total Hemoglobin 11.4 L 11.1 L Sodium Potassium Chloride Carbon Dioxide Anion Gap BUN Creatinine Estimated GFR Glucose POC Capillary Glucose 229 H Hemoglobin A1c Calcium Phosphorus Magnesium AST ALT Total Creatine Kinase C-Reactive Protein Total Protein Albumin Beta-Hydroxybutyrate/Acetoacetate TSH Total T3 Ur Specific [place] Urine Protein Urine Glucose (UA) Urine Ketones Vancomycin Trough Random Vancomycin Influenza A (RT-PCR) 01/25/25 01/25/25 01/25/25 11:34 18:57 20:56 WBC RBC Hgb Hct MCV MCHC RDW Plt Count MPV Immature Gran % (Auto) Neut % (Auto) Lymph % (Auto) [place] % (Auto) Lymph # (Auto) [place] # (Auto) Abs Immat Gran (auto) Absolute Neuts (auto) Absolute Nucleated RBC Neutrophils % (Manual) Band Neutrophils % Lymphocytes % (Manual) Monocytes % (Manual) Abs Neuts (Manual) Abs Lymphs (Manual) Abs Monocytes (Manual) Abs Basophils (Manual) PT ABG pH ABG pCO2 ABG pO2 ABG HCO3 ABG O2 Saturation ABG O2 Content Reduced Hemoglobin Total Hemoglobin Sodium Potassium Chloride Carbon Dioxide Anion Gap BUN Creatinine Estimated GFR Glucose POC Capillary Glucose 190 H 177 H 177 H Hemoglobin A1c Calcium Phosphorus Magnesium AST ALT Total Creatine Kinase C-Reactive Protein Total Protein Albumin Beta-Hydroxybutyrate/Acetoacetate TSH Total T3 Ur Specific [place] Urine Protein Urine Glucose (UA) Urine Ketones Vancomycin Trough Random Vancomycin Influenza A (RT-PCR) 01/26/25 01/26/25 01/26/25 02:29 04:40 07:29 WBC 16.0 H RBC 2.80 L Hgb 8.9 L Hct 28.0 L MCV MCHC 31.8 L RDW 15.1 H Plt Count 416 H MPV Immature Gran % (Auto) 0.9 H Neut % (Auto) 83.9 H Lymph % (Auto) 10.3 L [place] % (Auto) Lymph # (Auto) [place] # (Auto) 0.7 H Abs Immat Gran (auto) 0.14 H Absolute Neuts (auto) 13.4 H Absolute Nucleated RBC Neutrophils % (Manual) Band Neutrophils % Lymphocytes % (Manual) Monocytes % (Manual) Abs Neuts (Manual) Abs Lymphs (Manual) Abs Monocytes (Manual) Abs Basophils (Manual) PT ABG pH ABG pCO2 ABG pO2 ABG HCO3 ABG O2 Saturation ABG O2 Content Reduced Hemoglobin Total Hemoglobin Sodium Potassium 3.3 L Chloride 112 H Carbon Dioxide Anion Gap 3 L BUN 23 H Creatinine 0.44 L Estimated GFR Glucose 136 H POC Capillary Glucose 142 H 140 H Hemoglobin A1c Calcium 8.3 L Phosphorus Magnesium AST 45 H ALT Total Creatine Kinase C-Reactive Protein Total Protein 5.5 L Albumin 2.4 L Beta-Hydroxybutyrate/Acetoacetate TSH Total T3 Ur Specific [place] Urine Protein Urine Glucose (UA) Urine Ketones Vancomycin Trough Random Vancomycin Influenza A (RT-PCR) 01/26/25 01/26/25 01/26/25 09:43 11:30 19:54 WBC RBC Hgb Hct MCV MCHC RDW Plt Count MPV Immature Gran % (Auto) Neut % (Auto) Lymph % (Auto) [place] % (Auto) Lymph # (Auto) [place] # (Auto) Abs Immat Gran (auto) Absolute Neuts (auto) Absolute Nucleated RBC Neutrophils % (Manual) Band Neutrophils % Lymphocytes % (Manual) Monocytes % (Manual) Abs Neuts (Manual) Abs Lymphs (Manual) Abs Monocytes (Manual) Abs Basophils (Manual) PT ABG pH ABG pCO2 ABG pO2 ABG HCO3 ABG O2 Saturation ABG O2 Content Reduced Hemoglobin Total Hemoglobin Sodium Potassium Chloride Carbon Dioxide Anion Gap BUN Creatinine Estimated GFR Glucose POC Capillary Glucose 151 H 161 H Hemoglobin A1c Calcium Phosphorus Magnesium AST ALT Total Creatine Kinase C-Reactive Protein Total Protein Albumin Beta-Hydroxybutyrate/Acetoacetate TSH Total T3 0.57 L Ur Specific [place] Urine Protein Urine Glucose (UA) Urine Ketones Vancomycin Trough Random Vancomycin Influenza A (RT-PCR) 01/27/25 01/27/25 01/27/25 02:04 04:06 07:25 WBC 17.5 H RBC 3.21 L Hgb 10.3 L Hct 32.7 L MCV 101.9 H MCHC 31.5 L RDW 14.7 H Plt Count 470 H MPV Immature Gran % (Auto) 0.7 H Neut % (Auto) 83.7 H Lymph % (Auto) 11.7 L [place] % (Auto) Lymph # (Auto) [place] # (Auto) Abs Immat Gran (auto) 0.12 H Absolute Neuts (auto) 14.6 H Absolute Nucleated RBC Neutrophils % (Manual) Band Neutrophils % Lymphocytes % (Manual) Monocytes % (Manual) Abs Neuts (Manual) Abs Lymphs (Manual) Abs Monocytes (Manual) Abs Basophils (Manual) PT ABG pH ABG pCO2 ABG pO2 ABG HCO3 ABG O2 Saturation ABG O2 Content Reduced Hemoglobin Total Hemoglobin Sodium Potassium 3.3 L Chloride 108 H Carbon Dioxide Anion Gap BUN Creatinine 0.41 L Estimated GFR Glucose 123 H POC Capillary Glucose 116 H 118 H Hemoglobin A1c Calcium Phosphorus Magnesium AST 52 H ALT 40 H Total Creatine Kinase C-Reactive Protein Total Protein 5.6 L Albumin 2.5 L Beta-Hydroxybutyrate/Acetoacetate TSH Total T3 Ur Specific [place] Urine Protein Urine Glucose (UA) Urine Ketones Vancomycin Trough Random Vancomycin Influenza A (RT-PCR) 01/27/25 01/27/25 01/27/25 11:21 15:40 19:37 WBC RBC Hgb Hct MCV MCHC RDW Plt Count MPV Immature Gran % (Auto) Neut % (Auto) Lymph % (Auto) [place] % (Auto) Lymph # (Auto) [place] # (Auto) Abs Immat Gran (auto) Absolute Neuts (auto) Absolute Nucleated RBC Neutrophils % (Manual) Band Neutrophils % Lymphocytes % (Manual) Monocytes % (Manual) Abs Neuts (Manual) Abs Lymphs (Manual) Abs Monocytes (Manual) Abs Basophils (Manual) PT ABG pH ABG pCO2 ABG pO2 ABG HCO3 ABG O2 Saturation ABG O2 Content Reduced Hemoglobin Total Hemoglobin Sodium Potassium Chloride Carbon Dioxide Anion Gap BUN Creatinine Estimated GFR Glucose POC Capillary Glucose 130 H 143 H 190 H Hemoglobin A1c Calcium Phosphorus Magnesium AST ALT Total Creatine Kinase C-Reactive Protein Total Protein Albumin Beta-Hydroxybutyrate/Acetoacetate TSH Total T3 Ur Specific [place] Urine Protein Urine Glucose (UA) Urine Ketones Vancomycin Trough Random Vancomycin Influenza A (RT-PCR) 01/28/25 01/28/25 01/28/25 04:06 07:17 11:24 WBC 16.4 H RBC 3.07 L Hgb 9.9 L Hct 31.1 L MCV 101.3 H MCHC 31.8 L RDW 15.1 H Plt Count 511 H MPV Immature Gran % (Auto) 0.8 H Neut % (Auto) 86.0 H Lymph % (Auto) 9.2 L [place] % (Auto) Lymph # (Auto) [place] # (Auto) Abs Immat Gran (auto) 0.13 H Absolute Neuts (auto) 14.1 H Absolute Nucleated RBC Neutrophils % (Manual) Band Neutrophils % Lymphocytes % (Manual) Monocytes % (Manual) Abs Neuts (Manual) Abs Lymphs (Manual) Abs Monocytes (Manual) Abs Basophils (Manual) PT ABG pH ABG pCO2 ABG pO2 ABG HCO3 ABG O2 Saturation ABG O2 Content Reduced Hemoglobin Total Hemoglobin Sodium Potassium 3.3 L Chloride Carbon Dioxide Anion Gap BUN Creatinine 0.49 L Estimated GFR Glucose 120 H POC Capillary Glucose 126 H 152 H Hemoglobin A1c Calcium Phosphorus Magnesium AST 44 H ALT 39 H Total Creatine Kinase C-Reactive Protein Total Protein 5.8 L Albumin 2.6 L Beta-Hydroxybutyrate/Acetoacetate TSH Total T3 Ur Specific [place] Urine Protein Urine Glucose (UA) Urine Ketones Vancomycin Trough Random Vancomycin Influenza A (RT-PCR) Diagnostic Findings Additional studies: ITS Impressions Chest X-Ray 01/18/25 13:56 Impression: Patchy airspace disease at the lung bases and left perihilar region. Correlate for pulmonary edema versus infection. Chest X-Ray 01/18/25 14:58 IMPRESSION: Endotracheal tube, in good position. Shallow NG tube, consider advancing by 6 cm. Worsening bilateral lower lung airspace disease, most likely representing worsening edema. Possible trace right pleural effusion. Infection/aspiration not excluded. Chest X-Ray 01/18/25 15:10 IMPRESSION: Bilateral basal pneumonia. Pulmonary edema cannot be excluded although less likely. Chest CTA 01/18/25 15:25 IMPRESSION: 1. No pulmonary embolism. 2. Bilateral pneumonia in the lower lobes. Pneumonia in the lingula. Minimal changes of pneumonia in the right middle lobe. Pneumonia in the right upper lobe posteriorly. Follow-up to resolution is advised. Chest X-Ray 01/19/25 05:22 Impression: Support tubes, as above. No pneumothorax. Stable extensive bibasilar and perihilar airspace consolidation. Correlate for pulmonary edema versus bilateral pneumonia. Chest X-Ray 01/20/25 05:38 Impression: Extensive bilateral airspace consolidation. Correlate for pulmonary edema versus bilateral pneumonia. Minimal left pleural effusion. Stable support tubes. Chest X-Ray 01/21/25 05:43 Impression: Stable extensive bilateral airspace consolidation. Correlate for moderate to advanced pulmonary edema versus bilateral pneumonia. Minimal left pleural effusion. Stable support tubes. Chest X-Ray 01/22/25 05:33 Impression: Bilateral extensive airspace consolidation the lung bases and perihilar regions, with possible minimal improvement in the right lung. Correlate for pulmonary edema versus bilateral pneumonia. Minimal left pleural effusion. Stable support tubes. Head CT 01/22/25 10:18 Impression: No significant abnormality seen. Chest X-Ray 01/23/25 06:00 Impression: 1: Stable pulmonary edema. 2: NG tube tip near the gastroesophageal junction. Recommend advancement. Abdomen X-Ray 01/23/25 15:14 IMPRESSION: Orogastric tube in good position and ready for immediate use. Chest X-Ray 01/24/25 06:40 Impression: Extensive bibasilar and perihilar airspace disease bilaterally, probably minimally improved. Correlate for pulmonary edema versus pneumonia. Support tubes, as above. Chest X-Ray 01/25/25 05:58 Impression: Probable mild improvement in bibasilar and bilateral perihilar airspace disease. Correlate for improving pneumonia or pulmonary edema. Minimal left pleural effusion. Stable support tubes. Chest X-Ray 01/26/25 05:29 Impression: Worsening bibasilar and bilateral perihilar airspace disease with small pleural effusions. Findings suggest worsening pulmonary edema/atelectasis. Correlate clinically for pneumonia. Right IJ line in place. Modified Barium Swallow 01/26/25 13:30 IMPRESSION: Pharyngeal dysphagia with laryngeal penetration and one episode of aspiration on the initial trial. Please correlate with speech pathologist findings and specific feeding recommendations. Cervical Spine MRI 01/27/25 16:12 IMPRESSION: 1. Mild cervical spondylosis. Thoracic Spine MRI 01/27/25 16:25 IMPRESSION: 1. 15 degrees thoracic levoscoliosis with mild spondylosis. 2. Consolidation in the bilateral lower lobes which could represent atelectasis or pneumonia. Lumbar Spine MRI 01/27/25 16:40
[2025-01-28] MEDS: LINEZOLID 600 MG/300 ML 600 MG/300 ML SOLN 300 MG IVPB ×2 (14:48→23:42)
[2025-01-28 15:49] LABS: Glucose Point of Care 182 mg/dl (65-105)
[2025-01-28] MEDS: ATORVASTATIN 20 MG TABLET PO (17:59)
--- NOTE | 2025-01-28 19:08 | P.CONCA_ITS ---
Assessment and Plan Assessment and plan (1) Acute hypoxic respiratory failure: Code(s): J96.01 - Acute respiratory failure with hypoxia Status: Acute (2) Sinus tachycardia: Code(s): R00.0 - Tachycardia, unspecified Status: Acute (3) Staphylococcus aureus bacteremia: Code(s): R78.81 - Bacteremia; B95.61 - Methicillin susceptible Staphylococcus aureus infection as the cause of diseases classified elsewhere Status: Acute Plan Problem list: Sinus tachycardia secondary to infection Staph aureus bacteremia on IV antibiotics Influenza A pneumonia-completed course of Tamiflu Intracavitary nodule in the lingula- differential diagnosis is broad but includes reactivated tuberculosis, aspergillosis, autoimmune etiology and infection versus septic pulmonary emboli (thought to be less likely secondary to cavitary distribution)-TB testing pending Septic shock-improving on IV antibiotic Acute respiratory failure requiring intubation-now extubated and on oxygen by nasal cannula Right footdrop during this hospitalization being evaluated by Neurology History of PCOS Plan: -PEPITO to evaluate for any infective endocarditis in the setting of Staph aureus bacteremia. However she is being currently worked up for an intracavitary nodule in the lingular suspicious for reactivated TB. TB testing is pending. Also patient had a modified barium swallow on 01/26 which showed pharyngeal dysphagia with laryngeal penetration and 1 episode of aspiration. Recommend repeat swallow study to evaluate current status. Will await results of these tests prior to scheduling the PEPITO -Management of other medical problems per primary team History of Present Illness History of Present Illness Consult date/time: 01/28/25 19:08 Reason For Visit: pna/flu/euglycemia dka Narrative: 54-year-old female with history of chronic low blood pressure, diabetes mellitus type 2, PCOS was admitted with chief complaints of shortness of breath. She states that she went on a cruise on 01/08/2025 and during the cruise she developed symptoms of shortness of breath, cough, fatigue, cruise. She lost her appetite and stopped eating or drinking after the symptoms. After returning from the cruise, she flew from [place] to home and drove straight to [facility]. She was extremely weak, tachypnea, and had hypoxic respiratory failure requiring intubation. She was started on broad-spectrum antibiotics for septic shock. She tested positive for influenza A and completed a course of Tamiflu. CT chest showed an intracavitary lesion and antibiotics were broadened. Sputum and blood cultures grew Staph aureus. Cardiology is consulted for PEPITO to rule out infective endocarditis in the setting of Staph aureus bacteremia. She is currently extubated and on 3 L of oxygen by nasal cannula. She reports a right footdrop about 2 days ago for which Neurology was consulted. There was a question of bowel incontinence. An MRI of the cervical, lumbar, sacral spine was performed which did not show any acute findings (no evidence for spinal cord compression or disc herniation of lumbar spine). She lost 40 lb since the last 1 year. She denies any issues with swallowing. Awaiting swallow on 01/26 showed fatty in February dysphagia with laryngeal penetration 1 episode of aspiration on the initial trial. No allergies to any sedation. No fever but she feels warm. She denies chest pain, dizziness, lightheadedness, palpitations, recent weight gain, leg swelling, PND, orthopnea. Workup: WBC 01/29: 11.3 Hemoglobin 01/29: 9.9 Potassium 01/29: 3.1 Creatinine 01/29: 0.51 NT proBNP: 224 Influenza A: Positive TB testing: Pending Blood culture: Staph aureus EKG 01/18: Sinus tachycardia, incomplete right bundle branch block, Q-waves in inferior leads EKG 01/23: Sinus tachycardia, low-voltage QRS in precordial leads, incomplete right bundle-branch block, nonspecific T-wave abnormalities inferiorly TTE 01/19: Normal LVEF 60-65%, grade 1 diastolic dysfunction, [id number] tricuspid regurgitation Chest x-ray:Impression: Worsening bibasilar and bilateral perihilar airspace disease with small pleural effusions. Findings suggest worsening pulmonary edema/atelectasis. Correlate clinically for pneumonia. Right IJ line in place. CT chest 01/28: IMPRESSION: Interval progression of multifocal consolidation within the bilateral lung martini, now demonstrating cavitation with intracavitary nodule in the lingula for which the differential diagnosis is broad but includes reactivated tuberculosis, aspergillosis, autoimmune etiology and infection versus septic pulmonary emboli (thought to be less likely secondary to cavitary distribution) Modified barium swallow 01/26:IMPRESSION: Pharyngeal dysphagia with laryngeal penetration and one episode of aspiration on the initial trial. Please correlate with speech pathologist findings and specific feeding recommendations. Review of Systems 2 Review of Systems: A complete review of systems was performed and negative other than those mentioned HPI [facility] Past Medical History Medical History (Updated 01/28/25 @ 19:26 by Bety Dockery MD) Influenza A Chronic low blood pressure Family History Family History Father Diabetes mellitus Mother Diabetes mellitus Other Family history of cardiovascular disease Hypertension Social History Social History Smoking status: Never smoker Alcohol intake: current Drinks per week: 1 Substance use type: does not use Spiritual care concerns: No Meds Home Medications and Allergies Home Medications ?Medication ?Instructions ?Recorded ?Confirmed ?Type atorvastatin 20 mg tablet 20 mg PO QPM 01/18/25 01/18/25 History cyclobenzaprine 10 mg tablet 10 mg PO TID 01/18/25 01/18/25 History empagliflozin 10 mg tablet 10 mg PO DAILY 01/18/25 01/18/25 History (Jardiance) estradiol 1 mg tablet 1 mg PO DAILY 01/18/25 01/18/25 History metformin 500 mg tablet,extended 500 mg PO .Q12HR 01/18/25 01/18/25 History release 24 hr metoprolol succinate 50 mg 50 mg PO DAILY 01/18/25 01/18/25 History tablet,extended release 24 hr nabumetone 750 mg tablet 750 mg PO .q12hr 01/18/25 01/18/25 History semaglutide 2 mg/dose (8 mg/3 mL) 2 mg subcut WEEKLY 01/18/25 01/18/25 History subcutaneous pen injector (Ozempic) spironolactone 100 mg tablet 100 mg PO Q12H 01/18/25 01/18/25 History Allergies Allergy/AdvReac Type Severity Reaction Status Date / Time Sulfa (Sulfonamide Allergy Unknown Rash Verified 01/18/25 16:13 Antibiotics) Vital Signs Vital Signs - 24 hr 01/27/25 19:45 01/27/25 20:00 01/27/25 20:00 Temperature 37.0 C Pulse Rate 116 H 115 H 112 H Respiratory Rate 16 Blood Pressure 120/61 Pulse Oximetry 95 95 Oxygen Delivery Nasal Cannula Oxygen Flow Rate 4 01/27/25 20:57 01/27/25 22:00 01/27/25 23:18 Temperature Pulse Rate 118 H 110 H 99 Respiratory Rate Blood Pressure Pulse Oximetry 95 Oxygen Delivery Nasal Cannula Oxygen Flow Rate 5 01/27/25 23:41 01/28/25 00:00 01/28/25 03:48 Temperature 37.1 C 37.1 C Pulse Rate 103 H 102 H 101 H Respiratory Rate 16 16 Blood Pressure 98/54 L 105/54 L Pulse Oximetry 94 90 Oxygen Delivery Oxygen Flow Rate 01/28/25 04:00 01/28/25 04:00 01/28/25 06:00 Temperature Pulse Rate 101 H 101 H 104 H Respiratory Rate Blood Pressure Pulse Oximetry 93 Oxygen Delivery Nasal Cannula Oxygen Flow Rate 5 01/28/25 07:39 01/28/25 08:00 01/28/25 08:10 Temperature 36.7 C Pulse Rate 104 H 110 H 109 H Respiratory Rate 18 20 Blood Pressure 119/61 Pulse Oximetry 92 86 L Oxygen Delivery High Flow Nasal Cannula Oxygen Flow Rate 8 01/28/25 08:32 01/28/25 10:00 01/28/25 11:59 Temperature 36.4 C Pulse Rate 111 H 96 107 H Respiratory Rate 20 Blood Pressure 111/61 Pulse Oximetry 96 Oxygen Delivery Oxygen Flow Rate 01/28/25 12:00 01/28/25 14:00 01/28/25 16:00 Temperature Pulse Rate 105 H 124 H 119 H Respiratory Rate Blood Pressure Pulse Oximetry Oxygen Delivery Oxygen Flow Rate 01/28/25 16:24 01/28/25 18:00 Temperature 36.7 C Pulse Rate 119 H 112 H Respiratory Rate 16 Blood Pressure 124/67 Pulse Oximetry 96 Oxygen Delivery Oxygen Flow Rate Exam 2 Narrative: General: Alert oriented x3, no acute distress Neck: Supple, no JVD Chest: Bibasilar rales and wheezing, no rhonchi Cardiac: S1, S2 +, regular rate, regular rhythm, no murmurs or rubs Extremities: No pedal edema, no skin rash Neurologic: Alert and oriented x3, no focal neurological deficits Results Labs and Meds 01/29/25 04:26 01/29/25 04:26 Lab results: Cardiac Enzymes 01/28/25 Range/Units 04:06 AST 44 H (14-36) U/L CBC 01/28/25 Range/Units 04:06 WBC 16.4 H (4.5-10.0) K/mm3 RBC 3.07 L (4.2-5.4) M/mm3 Hgb 9.9 L (12.0-15.0) g/dL Hct 31.1 L (37.0-47.0) % Plt Count 511 H (150-375) k/mm3 Lymph # (Auto) 1.51 (0.9-3.2) K/mm3 Divide # (Auto) 0.6 (0.1-0.6) K/mm3 Eos # (Auto) 0.1 (0-0.3) K/mm3 Baso # (Auto) 0.0 (0.0-0.1) K/mm3 Comprehensive Metabolic Panel 01/28/25 Range/Units 04:06 Sodium 138 (137-145) mmol/L Potassium 3.3 L (3.4-5.0) mmol/L Chloride 107 (98-107) mmol/L Carbon Dioxide 27 (22-30) mmol/L BUN 12 (7-17) mg/dL Creatinine 0.49 L (0.7-1.0) mg/dL Glucose 120 H (65-110) mg/dL Calcium 8.6 (8.4-10.2) mg/dL AST 44 H (14-36) U/L ALT 39 H (6-35) U/L Alkaline Phosphatase 60 (38-126) U/L Total Protein 5.8 L (6.3-8.2) g/dL Albumin 2.6 L (3.5-5.1) g/dL Intake and Output 01/28/25 01/28/25 01/28/25 07:59 15:59 23:59 Intake Total 100 1690 Output Total 1050 850 Balance -950 840 Intake: IV 100 400 Linezolid 600 mg/300 ml 600 mg 300 In 300 ml @ 300 mls/hr IVPB Q12HR [facility]AR Rx#:[id number] Meropenem 1 gm/Ns 100 ml 1 gm 100 100 In 100 ml @ 200 mls/hr IVPB Q8H [facility]AR Rx#:[id number] Oral 1290 Output: Catheter Urine 1050 850 Urethral Catheter 1050 850 Other: Number of Bowel Movements Today 2 Patient Weight 01/28/25 23:59 Weight 64.6 kg
[2025-01-28 20:00] LABS: Glucose Point of Care 181 mg/dl (65-105)
[2025-01-28] MEDS: INSULIN GLARGINE (*BKC) 100 UNITS/ML 10 UNITS SUB-Q (20:22)
[2025-01-29] VITALS (22 sets, daily range): BP systolic 95–114; BP diastolic 47–66; PULSE 88–132; RESP 16–22; TEMP 36.6–37.1; O2SAT 92–100; BMI 24.3
[2025-01-29] MEDS: MEROPENEM 1 GM/NS 100 ML 1 GM/100 ML BAG IVPB ×3 (01:43→17:27)
[2025-01-29] MEDS: CENTRAL LINE FLUSH 10 ML IV PUSH (01:43)
[2025-01-29 04:33] LABS: Hematocrit 30.9 % (37.0-47.0); Hemoglobin 9.9 g/dL (12.0-15.0); Mean Corpuscular Hemoglobin 32.5 pg (26-34); Mean Corpuscular Volume 101.3 fl (80-100); Mean Platelet Volume 9.6 fl (7.4-10.4); Platelet Count Result 524 k/mm3 (150-375); Red Blood Count 3.05 M/mm3 (4.2-5.4); Red Cell Distribution Width 15.1 % (11.5-14.5); White Blood Count 11.3 K/mm3 (4.5-10.0)
[2025-01-29 04:47] LABS: Alanine Aminotransferase 38 U/L (6-35); Albumin Level 2.4 g/dL (3.5-5.1); Alkaline Phosphatase 53 U/L (38-126); Anion Gap 3 mmol/L (4-12); Aspartate Amino Transferase 42 U/L (14-36); Bilirubin,Total 0.5 mg/dL (0.2-1.3); Blood Urea Nitrogen 10 mg/dL (7-17); CRP. 4.8 mg/dL (<1.0); Calcium 8.4 mg/dL (8.4-10.2); Carbon Dioxide 27 mmol/L (22-30); Chloride 107 mmol/L (98-107); Estimated CRCL calculation 92 ml/min; Estimated Glomerular Filt Rate > 60; Glucose 132 mg/dL (65-110); Potassium 3.1 mmol/L (3.4-5.0); Sodium 137 mmol/L (137-145); Total Protein 5.6 g/dL (6.3-8.2)
[2025-01-29 04:57] LABS: NT Pro B Type Natriuretic Pept 224 pg/mL (19.9-100)
[2025-01-29 05:03] LABS: Procalcitonin. 0.1 ng/mL
[2025-01-29 07:39] LABS: Glucose Point of Care 116 mg/dl (65-105)
[2025-01-29] MEDS: LINEZOLID 600 MG/300 ML 600 MG/300 ML SOLN 300 MG IVPB ×2 (09:08→21:57)
[2025-01-29] MEDS: ENOXAPARIN 40 MG/0.4 ML SYRINGE SUB-Q (09:09)
[2025-01-29] MEDS: METOPROLOL TARTRATE 25 MG TABLET PO ×2 (09:10→21:55)
[2025-01-29] MEDS: PANTOPRAZOLE 40 MG TABLET PO (09:10)
[2025-01-29] MEDS: SENNA/DOCUSATE SODIUM TABLET 1 TAB PO (09:10)
[2025-01-29] MEDS: estradioL 1 MG TABLET PO (09:10)
--- NOTE | 2025-01-29 10:27 | P.PNPL_ITS ---
Progress Note: A&P Assessment and Plan (1) Influenza A: Code(s): J10.1 - Influenza due to other identified influenza virus with other respiratory manifestations Status: Acute Assessment and Plan: Patient presented on 01/18/2025 with influenza a pneumonia, Staph aureus bacteremia and pneumonia. Patient was treated with Tamiflu on 01/18, 01/21 and 01/22. 01/28/25: Plan: would not entertain any additional Tamiflu at this time. (2) PNA (pneumonia): Code(s): J18.9 - Pneumonia, unspecified organism Status: Acute Assessment and Plan: Patient with no underlying lung disease. She has an unspecified autoimmune disease takes prednisone 1 time a year last use was 3 years ago. History of recurrent bronchitis but denies asthma or COPD. Blood cultures grew out Staph aureus sensitive to everything except tetracycline and sputum culture on 01/19/2025 grew out Staph aureus sensitive to everything except tetracycline. started on vancomycin and cefepime and doxycycline on 01/18 2025. Patient was switched to Ancef on 01/21/2025. Repeat blood cultures on 01/20/2025 negative x2. patient became afebrile on 01/23/2025. patient treated with Solu-Medrol 01/23 and 01/24. She had increased oxygen requirements on 01/25/2014 and was escalated from Ancef to meropenem and vancomycin (01/23 through 01/26). Currently the patient is on meropenem only (01/23 started). Patient had a CT scan of the chest that shows a cavity in the lingula, right middle lobe and possibly cavities in the consolidated area of the right lower lobe. There dense consolidations in the bases bilaterally and diffuse patchy infiltrates throughout the lungs. Linezolid added 01/28/25. Plan: patient with post influenza staph aureus pneumonia and bacteremia. she has a development of new cavities in her lungs bilaterally. I will send a QuantiFERON gold. I have discussed with ID pharmacy and patient should have been adequately covered for her Staph aureus since 01/18/2025, day 10. is unclear when these cavities developed after the CT scan on 01/18/2025. Will perform PEPITO to exclude endocarditis. I reviewed the MRI of the spine with Radiology and there is no evidence of osteomyelitis, diskitis or spinal abscess. Will continue meropenem and start linezolid today. CT scan of the chest with dense consolidation in the bases and new lingula and right middle lobe cavities. 01/29/2025: Overall the patient denies any rest shortness of breath. She does desaturate when she walks to the chair. She has severe coughing paroxysms and sometimes coughs for 45 minutes that causes chest pain. She says occasionally she hears herself wheezing. Currently she is on 2 L nasal cannula saturations 93%. She has been afebrile since 01/23. Her white blood cell count is 11.3, creatinine is 0.51. Her BNP is 224. Her procalcitonin has improved from 3.6 on 01/21/2025 to 0.1 today. Her CRP has improved from 17.4 on 01/24/2025 to 4.8 today. Plan: patient is afebrile, improved procalcitonin, improved leukocytosis, improved CRP. Patient should have been adequately covered for her Staph aureus since 01/18/2025, day 11. Continue meropenem, started 01/23, day 7 and linezolid started 01/28, day 2. Patient to have repeat swallow study and QuantiFERON gold result prior to PEPITO to exclude endocarditis. goal saturation 90-94%, wean as tolerated. Discussed with family in the room, Dr. Geronimo. will follow with you. Subjective Date/time seen: 01/29/25 10:27 Interval history: 01/27/2025: This is a new pulmonary consult for influenza a pneumonia and hypoxemia. 54-year-old with a history of diabetes, polycystic ovarian syndrome, Raynaud's, Sjogren's, spinal stenosis, DJD, mouth sores and an unspecified autoimmune disease. Patient seen a patient service technician pst from [place] in an out reach Clinic in [facility] [place] and was diagnosed with a nonspecific autoimmune disease. She takes prednisone bursts for about a week every year. Her last use was approximately 3 years ago. Patient denies any history of childhood asthma, COPD but has had recurrent bronchitis episodes approximately once a year the last of which was 07/2020 for which she took antibiotics for 1 week and made a full recovery. Patient was at her baseline approximately 3 weeks ago and says she can walk 2 to 2-1/2 miles over 45-60 minutes with no respiratory limitations. She has no respiratory limitations in her activities of daily living. She is a never smoker and has no occupational exposures. Patient presented to the hospital on 01/18/2025 with shortness of breath, weakness and fatigue after she returned from a cruise [facility] on 01/08/2025. On 01/14 the patient developed a cough with worsening shortness of breath. She lost her appetite and stopped eating or drinking on 01/16/2025. She developed shortness of breath on 01/18/2025 but did not want to go to a hospital in [place] so she flew home and family brought her straight from the airport to [facility]. She was tachypneic and extremely weak and was intubated. White blood cell count 10.3, 23% bands, patient was started on cefepime to, doxycycline and vancomycin for septic shock. She was started on Tamiflu in the emergency department. Patient received Tamiflu on 01/18, 01/21 and 01/22. Blood cultures grew out Staph aureus sensitive to everything except tetracycline and sputum culture on 01/19/2025 grew out Staph aureus sensitive to everything except tetracycline. Patient was switched to Ancef. Repeat blood cultures on 01/21/2020 5- x2. patient became afebrile on 01/23/2025. She had increased oxygen requirements on 01/25/2014 and was escalated from Ancef to meropenem and vancomycin (01/23 through 01/26). Currently the patient is on meropenem only (01/23 started). Patient had a CT scan of the chest that shows a cavity in the lingula, right middle lobe and possibly cavities in the co nsolidated area of the right lower lobe. There dense consolidations in the bases bilaterally and diffuse patchy infiltrates throughout the lungs. Linezolid added 01/28/25. 01/28/2025: Patient complains of a dry cough that has persisted since she was extubated on 01/25. She denies fever but feels warm with no chills or rigors. She has no rest shortness of breath. Currently she is on 3 L with saturations 92-96%. She can do incentive spirometry and 1000 mL but this does provoke a cough. Her last fever was 614 at 6:38 a.m.. White blood cell count 16.4, creatinine 0.49, last CRP was 17.4 decreased from 45 on admission. Last procalcitonin is 3.6, decreased from a peak of 12.5 on 01/19/2025. Patient developed a right foot drop has a history of chronic back pain. CT scan of the chest with dense consolidation in the bases and new lingula and right middle lobe cavities. 01/29/2025: Overall the patient denies any rest shortness of breath. She does desaturate when she walks to the chair. She has severe coughing paroxysms and sometimes coughs for 45 minutes that causes chest pain. She says occasionally she hears herself wheezing. Currently she is on 2 L nasal cannula saturations 93%. She has been afebrile since 01/23. Her white blood cell count is 11.3, creatinine is 0.51. Her BNP is 224. Her procalcitonin has improved from 3.6 on 01/21/2025 to 0.1 today. Her CRP has improved from 17.4 on 01/24/2025 to 4.8 today. DATA: 01/28/25: CLINICAL INDICATION: Shortness of breath, pneumonia suspected clinical ly COMPARISON: 01/18/2025 Reference is made to multiple plain film evaluations of the chest dated 01/26/2025 and dating back to 01/20/2025. TECHNIQUE: Multiple contiguous axial images of the chest was performed without the administration of intravenous contrast. This CT examination was performed utilizing dose reduction techniques. DLP: 124 mGy-cm FINDINGS/OBSERVATIONS: Interval extubation and removal of the orogastric tube with compared with previous study. No LUNG: Bibasilar consolidation, right greater than left. Patchy groundglass opacification within the bilateral pulmonary tomi, right g reater than left. Cavitation is now identified within the lingula, with an intracavitary nodule. Cavitation is also now identified within the right middle lobe. Cavitation is an interval change from previous examination. HEART: The heart is of normal size, without pericardial effusion. MEDIASTINUM: Limited evaluation without intravenous contrast. SOFT TISSUES OF THE CHEST: Unremarkable. BONES OF THE CHEST: No acute fracture. No lytic or blastic lesions are identified. UPPER ABDOMEN: Gaseous distention of the stomach. The gallbladder is surgically absent. IMPRESSION: Interval progression of multifocal consolidation within the bilateral lung martini, now demonstrating cavitation with intracavitary nodule in the lingula for which the differential diagnosis is broad but includes reactivated tuberculosis, aspergillosis, autoimmune etiology and infection versus septic pulmonary emboli (thought to be less likely secondary to cavitary distribution) 01/19/2025: Echo Summary 1. Left ventricular chamber dimension is normal. 2. Left ventricular systolic function is normal, estimated at 60-65. 3. The left ventricular diastolic function is grade I diastolic dysfunction. 4. Right ventricular chamber dimension is mildly enlarged. 5. Right ventricular systolic function is normal. 6. Right atrial chamber dimension is mildly enlarged. 7. There is mild to moderate tricuspid valve regurgitation. Right Ventricle Right ventricular chamber dimension is mildly enlarged. Right ventricular systolic function is normal. Left Atria Left atrial chamber dimension is normal. Right Atria Right atrial chamber dimension is mildly enlarged. Atrial Septum Intact interatrial septum visualized by color flow imaging. RVSP 64. 01/27/2025 cervical, thoracic, lumbar spine MRI: IMPRESSION: 1. . 20 degrees lumbar dextroscoliosis with severe spondylosis. IMPRESSION: 1. 15 degrees thoracic levoscoliosis with mild spondylosis. 2. Consolidation in the bilateral lower lobes which could represent atelectasis or pneumonia. IMPRESSION: 1. Mild cervical spondylosis. 01/18/2025: CTA chest PE protocol Ordering provider: Maxi Macedo MD History: 54 years Female with . sob . Comparison: None. Findings: Endotracheal tube and nasogastric tube are noted. PULMONARY ARTERIES: No pulmonary embolus. VISUALIZED THORACIC INLET: Normal. MEDIASTINUM: Aorta/coronary arteries: Mild atheromatous disease. Heart/other: The heart is not enlarged. Lymph nodes: No mediastinal or hilar adenopathy. Small prevascular lymph nodes are noted. LUNGS: Bilateral lower lobe and lingular pneumonia is noted. Pneumonia in the right upper lobe posteriorly is also seen. Minimal consolidation also seen in the middle lobe. No pulmonary nodules or masses. No effusions. No pneumothorax. VISUALIZED UPPER ABDOMEN: Fat infiltration of the liver. Status post cholecystectomy. Otherwise, the visualized upper abdomen is normal. MUSCULOSKELETAL: Soft tissues: The superficial soft tissues are normal. Bones: Age appropriate degenerative changes of the spine. IMPRESSION: 1. No pulmonary embolism. 2. Bilateral pneumonia in the lower lobes. Pneumonia in the lingula. Minimal changes of pneumonia in the right middle lobe. Pneumonia in the right upper lobe posteriorly. Follow-up to resolution is advised. Review of Systems Constitutional: Constitutional: Reports no additional constitutional complaints Eyes: Eyes: Reports no additional eye complaints ENT: Reports system reviewed and no additional complaints, except as documented Cardiovascular: Cardiovascular: Reports no additional cardiovascular complaints Respiratory: Respiratory: Reports no additional respiratory complaints Gastrointestinal: Gastrointestinal: Reports no additional gastrointestinal complaints Musculoskeletal: Musculoskeletal: Reports no additional musculoskeletal complaints Neurologic: Reports system reviewed and no additional complaints, except as documented Psychiatric: Psychiatric: Reports no additional psychiatric complaints Endocrine: Endocrine: Reports no additional endocrine complaints Hematologic/Lymphatic: Hematologic/Lymphatic: Reports no additional hematologic/lymphatic complaints Allergic/Immunologic: Allergic/Immunologic: Reports no additional allergic/immunologic complaints Exam Const: General: cooperative, healthy appearing and comfortable Orientation/consciousness: oriented to person, oriented to place and oriented to time Other: no respiratory distress on 3 L HENMT: Head: normal to inspection Ears: hearing grossly normal bilaterally Eyes: General: appearance normal, both eyes and all related structures Neck: Neck: normal visual inspection Chest: Chest palpation & inspection: normal inspection of the chest Resp: Effort & Inspection: normal respiratory effort and able to speak in complete sentences Auscultation: crackles, no rales, no rhonchi, no wheezes and lung sounds not diminished Other: diffuse crackles throughout with decreased breath sounds in the bases. No wheezes. Cardio: Jugular venous distension: no JVD GI: Inspection: normal to inspection Skin: General skin exam: normal color Neuro: General: oriented to person, oriented to place and oriented to time Extrem: General: normal to inspection Other: Inability to raise right foot. Loss of sensation top of foot. Psych: Appearance: grossly normal Objective Data Vital Signs Vital Signs: Vital Signs - 24 hr 01/28/25 11:59 01/28/25 12:00 01/28/25 14:00 Temperature 36.4 C Pulse Rate 107 H 105 H 124 H Respiratory Rate 20 Blood Pressure 111/61 Pulse Oximetry 96 Oxygen Delivery Oxygen Flow Rate Fraction of Inspired Oxygen 01/28/25 16:00 01/28/25 16:24 01/28/25 18:00 Temperature 36.7 C Pulse Rate 119 H 119 H 112 H Respiratory Rate 16 Blood Pressure 124/67 Pulse Oximetry 96 Oxygen Delivery Oxygen Flow Rate Fraction of Inspired Oxygen 01/28/25 20:00 01/28/25 20:00 01/28/25 20:00 Temperature 36.4 C L Pulse Rate 111 H 114 H Respiratory Rate 16 Blood Pressure 105/57 L Pulse Oximetry 92 97 Oxygen Delivery Nasal Cannula Oxygen Flow Rate 2 Fraction of Inspired Oxygen 01/28/25 20:21 01/28/25 20:22 01/28/25 22:00 Temperature Pulse Rate 115 H 104 H 97 Respiratory Rate 20 Blood Pressure Pulse Oximetry 97 Oxygen Delivery Nasal Cannula Oxygen Flow Rate 1 Fraction of Inspired Oxygen 24 01/28/25 23:30 01/29/25 00:00 01/29/25 00:00 Temperature 37.1 C Pulse Rate 101 H 100 Respiratory Rate 16 Blood Pressure 105/49 L Pulse Oximetry 92 93 Oxygen Delivery Nasal Cannula Oxygen Flow Rate 3 Fraction of Inspired Oxygen 01/29/25 04:00 01/29/25 04:00 01/29/25 04:00 Temperature 36.7 C Pulse Rate 92 93 Respiratory Rate 16 Blood Pressure 100/60 Pulse Oximetry 95 94 Oxygen Delivery Nasal Cannula Oxygen Flow Rate 3 Fraction of Inspired Oxygen 01/29/25 06:00 01/29/25 07:52 01/29/25 09:10 Temperature 36.6 C Pulse Rate 97 132 H 100 Respiratory Rate 22 H Blood Pressure 114/66 Pulse Oximetry 97 Oxygen Delivery Oxygen Flow Rate Fraction of Inspired Oxygen Intake/Output Intake/Output: Intake & Output 01/26/25 01/27/25 01/28/25 01/29/25 23:59 23:59 23:59 23:59 Intake Total 456 862 1423 600 Output Total 1400 2300 1900 1000 Balance -600 -1810 -10 -400 Meds/Results Medications: Active Medications Generic Name Dose Route Start Last Admin Trade Name Freq PRN Reason Stop Dose Admin Acetaminophen 650 mg 01/18/25 20:28 01/24/25 08:23 Acetaminophen Elixir 325 Mg/10.15 Ml Udc FEED TUBE 650 mg Q4H PRN Administration Mild Pain (1-3) or Fever Atorvastatin Calcium 20 mg 01/19/25 18:00 01/28/25 17:59 Atorvastatin 20 Mg Tablet PO 20 mg QPM SESAR Administration Dextrose 12.5 gm 01/27/25 05:42 Dextrose 50% 25 Gm/50 Ml Syringe IV PUSH PRN PRN Hypoglycemia Protocol Enoxaparin Sodium 40 mg 01/20/25 09:00 01/29/25 09:09 Enoxaparin 40 Mg/0.4 Ml Syringe SUB-Q 40 mg DAILY SESAR Administration Estradiol 1 mg 01/19/25 09:00 01/29/25 09:10 Estradiol 1 Mg Tablet PO 1 mg DAILY SESAR Administration Glucagon 1 mg 01/27/25 05:42 Glucagon For Inj 1 Mg Vial IM PRN PRN Hypoglycemia Protocol Glucose 15 gm 01/27/25 05:42 Glucose Oral Gel 15 Gm Of Glucse In 37.5 Gm Tube PO PRN PRN Hypoglycemia Protocol Dextrose 1,000 mls @ 100 mls/hr 01/27/25 05:42 Dextrose 5% 1,000 Ml IVPB PRN PRN Hypoglycemia Protocol Meropenem 1 gm in 100 mls @ 200 mls/hr 01/27/25 18:00 01/29/25 09:09 IVPB 01/30/25 10:29 200 mls/hr Q8H SESAR Administration Linezolid 600 mg in 300 mls @ 300 mls/hr 01/28/25 14:00 01/29/25 09:08 Zyvox IVPB 300 mls/hr Q12HR SESAR Administration Insulin Aspart 3 - 6 units 01/27/25 06:30 01/29/25 08:19 Insulin Aspart (*Bkc) 100 Units/Ml SUB-Q Not Given ACHS SESAR Protocol Insulin Glargine 10 units 01/25/25 21:00 01/28/25 20:22 Insulin Glargine (*Bkc) 100 Units/Ml SUB-Q 10 units HS SESAR Administration Ipratropium [place] 0.5 mg 01/26/25 07:34 Ipratropium Br 0.02% Inh Soln 0.5 Mg/2.5 Ml Vial INHALATION Q6HRT PRN Wheezing Levalbuterol HCl 0.63 mg 01/26/25 07:34 01/26/25 22:37 Levalbuterol Neb 1.25 Mg/3 Ml INHALATION 0.63 mg Q6HRT PRN Administration Wheezing Metoprolol Tartrate 25 mg 01/26/25 21:45 01/29/25 09:10 Metoprolol Tartrate 25 Mg Tablet PO 25 mg Q12HR SESAR Administration Ondansetron HCl 4 mg 01/19/25 01:20 Ondansetron Inj 4 Mg/2 Ml Vial IV PUSH Q4H PRN Nausea And Vomiting Pantoprazole Sodium 40 mg 01/28/25 09:00 01/29/25 09:10 Pantoprazole 40 Mg Tablet PO 40 mg QAM SESAR Administration Polyethylene Glycol 17 gm 01/24/25 10:15 Polyethylene Glycol 3350 17 Gm Powd.Pack PO QAM PRN Constipation Senna/Docusate Sodium 1 tab 01/24/25 10:20 01/29/25 09:10 Senna/Docusate Sodium Tablet PO 1 tab Q12HR SESAR Administration Sodium Chloride 10 ml 01/19/25 06:00 01/29/25 01:43 Central Line Flush IV PUSH 10 ml Q8HR SESAR Administration Sodium Chloride 20 ml 01/19/25 04:13 01/25/25 05:16 Central Line Flush IV PUSH 20 ml PRN PRN Administration after blood draws Spironolactone 100 mg 01/19/25 09:00 Spironolactone 50 Mg Tablet PO Q12HR SESAR Radiology Results: ITS Impressions Chest CTA 01/18/25 15:25 IMPRESSION: 1. No pulmonary embolism. 2. Bilateral pneumonia in the lower lobes. Pneumonia in the lingula. Minimal changes of pneumonia in the right middle lobe. Pneumonia in the right upper lobe posteriorly. Follow-up to resolution is advised. Head CT 01/22/25 10:18 Impression: No significant abnormality seen. Abdomen X-Ray 01/23/25 15:14 IMPRESSION: Orogastric tube in good position and ready for immediate use. Chest X-Ray 01/26/25 05:29 Impression: Worsening bibasilar and bilateral perihilar airspace disease with small pleural effusions. Findings suggest worsening pulmonary edema/atelectasis. Correlate clinically for pneumonia. Right IJ line in place. Modified Barium Swallow 01/26/25 13:30 IMPRESSION: Pharyngeal dysphagia with laryngeal penetration and one episode of aspiration on the initial trial. Please correlate with speech pathologist findings and specific feeding recommendations. Cervical Spine MRI 01/27/25 16:12 IMPRESSION: 1. Mild cervical spondylosis. Thoracic Spine MRI 01/27/25 16:25 IMPRESSION: 1. 15 degrees thoracic levoscoliosis with mild spondylosis. 2. Consolidation in the bilateral lower lobes which could represent atelectasis or pneumonia. Lumbar Spine MRI 01/27/25 16:40 IMPRESSION: 1. . 20 degrees lumbar dextroscoliosis with severe spondylosis. Chest CT 01/28/25 15:29 IMPRESSION: Interval progression of multifocal consolidation within the bilateral lung martini, now demonstrating cavitation with intracavitary nodule in the lingula for which the differential diagnosis is broad but includes reactivated tuberculosis, aspergillosis, autoimmune etiology and infection versus septic pulmonary emboli (thought to be less likely secondary to cavitary distribution) Labs Labs: Laboratory Results - last 24 hr 01/28/25 01/28/25 01/28/25 11:24 15:45 19:36 WBC RBC Hgb Hct MCV MCH MCHC RDW Plt Count MPV Sodium Potassium Chloride Carbon Dioxide Anion Gap BUN Creatinine Estim Creat Clear Calc Estimated GFR Glucose POC Capillary Glucose 152 H 182 H 181 H Calcium Phosphorus Magnesium Total Bilirubin AST ALT Alkaline Phosphatase C-Reactive Protein NT-Pro-B Natriuret Pep Total Protein Albumin Procalcitonin 01/29/25 01/29/25 04:26 07:36 WBC 11.3 H RBC 3.05 L Hgb 9.9 L Hct 30.9 L MCV 101.3 H MCH 32.5 MCHC 32.0 RDW 15.1 H Plt Count 524 H MPV 9.6 Sodium 137 Potassium 3.1 L Chloride 107 Carbon Dioxide 27 Anion Gap 3 L BUN 10 Creatinine 0.51 L Estim Creat Clear Calc 92 Estimated GFR > 60 Glucose 132 H POC Capillary Glucose 116 H Calcium 8.4 Phosphorus 3.0 Magnesium 2.0 Total Bilirubin 0.5 AST 42 H ALT 38 H Alkaline Phosphatase 53 C-Reactive Protein 4.8 H NT-Pro-B Natriuret Pep 224 H Total Protein 5.6 L Albumin 2.4 L Procalcitonin 0.1
[2025-01-29] MEDS: KCL 20 MEQ/SW 100 ML 100 ML 50 MEQ IVPB (11:47)
[2025-01-29] MEDS: guaiFENesin 12 HR 600 MG TABCR 1200 MG PO (11:47)
[2025-01-29] MEDS: POTASSIUM CHLORIDE 20 MEQ PACKET (FOR LIQUID) 40 MEQ PO (11:47)
[2025-01-29 11:58] LABS: Glucose Point of Care 129 mg/dl (65-105)
[2025-01-29] MEDS: BENZONATATE 100 MG CAPSULE 200 MG PO (13:07)
[2025-01-29] MEDS: IPRATROPIUM 0.5 MG/ALBUTEROL SULFATE 2.5 MG AMPUL.NEB 3 ML INHALATION ×2 (13:16→21:00)
--- NOTE | 2025-01-29 14:40 | PCSTNOTE ---
Please refer to the Modified Barium Swallow Evaluation in the EMR.
[2025-01-29] MEDS: ALBUMIN HUMAN 25% 25 GM/100 ML 100 ML IVPB (15:04)
[2025-01-29 15:52] LABS: Magnesium 1.3 mg/dL (1.6-2.3); Potassium 3.4 mmol/L (3.4-5.0)
--- NOTE | 2025-01-29 15:58 | PCDIET ---
Nutrition note: RN notified dietitians that pt failed MBS today and will start NG tube feedings. Recommend Jevity 1.5 @ goal rate 50 ml/h with 150 ml flushes q 4 h. Provides 1650 kcal, 70 g protein, 836 ml free water, 1736 ml free water total/day. Please call with questions account resolution specialist ALBERTO Lombardi [phone].
[2025-01-29 16:10] LABS: Glucose Point of Care 116 mg/dl (65-105)
--- NOTE | 2025-01-29 16:30 | PM.IMPN ---
Progress Note: A&P Assessment and Plan (1) Septic shock: Code(s): A41.9 - Sepsis, unspecified organism; R65.21 - Severe sepsis with septic shock Status: Acute Assessment and Plan: Patient presented with bilateral lower lobe infiltrates, pneumonia, hypotension overnight requiring central line placement on 01/19, and Levophed -01/20: currently off all pressors -01/18: Blood and sputum cultures growing MSSA -01/20 and 01/23: Repeat blood cultures negative so far -status post doxycycline for 5 days -01/21: started on Cefazolin and DC cefepime, vancomycin (01/21) -patient received a course of Solu-Medrol for 4 doses, wheezing has improved -01/23: Patient again febrile with a T-max of 101.3?, thick yellow colored secretions from the ET tube, white blood cell count trending up. FiO2 requirements going up, Will repeat blood cultures, -01/23: DC cefazolin. Started vancomycin and meropenem (01/23) Fever curve much improved, patient is afebrile, improvement in WBC 1625: Echocardiogram Summary 1. Left ventricular chamber dimension is normal. 2. Left ventricular systolic function is normal, estimated at 60-65. 3. The left ventricular diastolic function is grade I diastolic dysfunction. 4. Right ventricular chamber dimension is mildly enlarged. 5. Right ventricular systolic function is normal. 6. Right atrial chamber dimension is mildly enlarged. 7. There is mild to moderate tricuspid valve regurgitation. (2) Acute hypoxic respiratory failure: Code(s): J96.01 - Acute respiratory failure with hypoxia Status: Acute Assessment and Plan: 01/18: Patient presented the ED with shortness of breath, weakness, diabetic ketoacidosis, pneumonia. Intubated in the ED for airway protection and hypoxia 01/25 extubated -chest x-ray and ABGs reviewed, - CTA chest on admission showed bilateral lower lobe pneumonia -positive for influenza A, On Tamiflu -01/23: bilateral diffuse wheezing, continue bronchodilators and received a course Solu-Medrol -wheezing which improved this morning, Continue supplemental oxygen Incentive spirometry -01/28: CT chest shows cavitary lesions. -continue meropenem -started linezolid 01/15: CTA chest IMPRESSION: 1. No pulmonary embolism. 2. Bilateral pneumonia in the lower lobes. Pneumonia in the lingula. Minimal changes of pneumonia in the right middle lobe. Pneumonia in the right upper lobe posteriorly. Follow-up to resolution is advised. (3) PNA (pneumonia): Code(s): J18.9 - Pneumonia, unspecified organism Status: Acute Assessment and Plan: 01/28/2025 CT shows a cavitary lesions in lung Currently on meropenem and linezolid Order QuantiFERON test Order PEPITO to rule out valve vegetation 01/28: CT Chest:Interval progression of multifocal consolidation within the bilateral lung martini, now demonstrating cavitation with intracavitary nodule in the lingula for which the differential diagnosis is broad but includes reactivated tuberculosis, aspergillosis, autoimmune etiology and infection versus septic pulmonary emboli (thought to be less likely secondary to cavitary distribution) (4) DKA (diabetic ketoacidosis): Code(s): E11.10 - Type 2 diabetes mellitus with ketoacidosis without coma Status: Acute Assessment and Plan: Patient presented with elevated beta hydroxybutyrate, anion gap metabolic acidosis, UA showed ketones, glucose -likely euglycemic diabetic ketoacidosis as patient was still taking Jardiance and metformin -this given 3 L IV fluids since admission, started on insulin infusion per DKA protocol -overnight patient was transition to long-acting insulin Lantus, and sliding scale insulin with Accu-Chek -continue to monitor -blood sugars in stable, continue Accu-Cheks, sliding scale insulin and Lantus (5) Flu: Code(s): J11.1 - Influenza due to unidentified influenza virus with other respiratory manifestations Status: Acute Assessment and Plan: Patient was tested positive for influenza A -status post course of Tamiflu (6) Chronic low blood pressure: Code(s): I95.89 - Other hypotension Status: Acute Assessment and Plan: Patient has chronic low blood pressures, according the daughter systolic blood pressures range in the 80s to 90s -blood pressures remain stable off pressors (7) Sinus tachycardia: Code(s): R00.0 - Tachycardia, unspecified Status: Acute Assessment and Plan: Has a history of chronic sinus tachycardia for which she is on metoprolol at home, -patient's heart rate is in the 100-110 which is her baseline -01/23: Restarted home metoprolol Change bronchodilators p.r.n. Check thyroid function test (8) PCOS (polycystic ovarian syndrome): Code(s): E28.2 - Polycystic ovarian syndrome Status: Acute Assessment and Plan: Hold spironolactone (9) Hyperlipidemia: Code(s): E78.5 - Hyperlipidemia, unspecified Status: Acute Assessment and Plan: continue Atorvastatin (10) Electrolyte imbalance: Code(s): E87.8 - Other disorders of electrolyte and fluid balance, not elsewhere classified Status: Acute Assessment and Plan: Replace potassium (11) Encephalopathy: Code(s): G93.40 - Encephalopathy, unspecified Status: Acute Assessment and Plan: Improving. Part delirium. Will get her up in a chair, PT OT, IS (12) Right foot drop: Code(s): M21.371 - Foot drop, right foot Status: Acute Assessment and Plan: Acute finding Reviewed MRI cervical, thoracic and lumbar Evidence of New cavitary lesions in lung Will repeat MRI lumbar needed Dr. Domingo reviewed with MRI with Radiology to definitely rule out osteomyelitis, diskitis or spinal abscess Consulted neurology and Neurosurgery Evidence of bowel incontinence Consider AFO EMG after Neurology recommendation PT OT (13) Dysphagia: Code(s): R13.10 - Dysphagia, unspecified Status: Acute Assessment and Plan: 0 01/29 patient failed swallow study NPO Insert NG and start nutrition Dietitian on board Plan DVT prophylaxis: Lovenox Stress ulcer prophylaxis: Protonix Nutrition: Swallow study ordered and pending Code Status: Full code Subjective Date/time seen: 01/29/25 16:30 Interval history: Patient was evaluated by the Cardiology and wants to repeat the swallow study for recent swallowing issues. Patient was re-evaluated for swallowing and unfortunately patient has silent aspiration and currently on NPO. Will insert NG tube and start nutrition. Will repeat the swallow study early next week and then patient will undergo PEPITO. Review of Systems Review of Systems: All systems reviewed & are unremarkable except as noted in HPI and below (HPI) ROS unobtainable: Yes unobtainable due to endotracheal tube, unobtainable due to medical condition and unobtainable due to mental status Exam Narrative: General: Awake alert in no acute distress HEENT:? Pupils small and reactive bilaterally, sclera is clear, Neck:? Supple, right IJ central line in place Respiratory:? Coarse breath sounds bilaterally, decreased at bases, bilateral wheezing, no tachypnea use of accessory muscles or respiratory distress Cardiac:? Sinus tachycardia, S1-S2 was normal, no murmurs Abdomen:? Soft, nontender, nondistended, hypoactive bowel sounds Extremities:? No edema, palpable pedal pulses Neuro:? Intubated, AO x3 follows simple commands in all extremities carries conversation but is little confused and goes tangential when answering questions Skin:? No lesions noted Psych:? Normal speech and affect Objective Data Vital Signs Vital Signs: Vital Signs - 24 hr 01/28/25 18:00 01/28/25 20:00 01/28/25 20:00 Temperature 97.5 F L Pulse Rate 112 H 111 H Respiratory Rate 16 Blood Pressure 105/57 L Pulse Oximetry 92 97 Oxygen Delivery Nasal Cannula Oxygen Flow Rate 2 Fraction of Inspired Oxygen 01/28/25 20:00 01/28/25 20:21 01/28/25 20:22 Temperature Pulse Rate 114 H 115 H 104 H Respiratory Rate 20 Blood Pressure Pulse Oximetry 97 Oxygen Delivery Nasal Cannula Oxygen Flow Rate 1 Fraction of Inspired Oxygen 24 01/28/25 22:00 01/28/25 23:30 01/29/25 00:00 Temperature 98.8 F Pulse Rate 97 101 H Respiratory Rate 16 Blood Pressure 105/49 L Pulse Oximetry 92 93 Oxygen Delivery Nasal Cannula Oxygen Flow Rate 3 Fraction of Inspired Oxygen 01/29/25 00:00 01/29/25 04:00 01/29/25 04:00 Temperature 98.1 F Pulse Rate 100 92 93 Respiratory Rate 16 Blood Pressure 100/60 Pulse Oximetry 95 Oxygen Delivery Oxygen Flow Rate Fraction of Inspired Oxygen 01/29/25 04:00 01/29/25 06:00 01/29/25 07:52 Temperature 97.8 F Pulse Rate 97 132 H Respiratory Rate 22 H Blood Pressure 114/66 Pulse Oximetry 94 97 Oxygen Delivery Nasal Cannula Oxygen Flow Rate 3 Fraction of Inspired Oxygen 01/29/25 08:00 01/29/25 08:00 01/29/25 09:10 Temperature Pulse Rate 98 100 Respiratory Rate Blood Pressure Pulse Oximetry 100 Oxygen Delivery Nasal Cannula Oxygen Flow Rate 2 Fraction of Inspired Oxygen 01/29/25 10:00 01/29/25 11:58 01/29/25 12:00 Temperature 97.9 F Pulse Rate 88 93 93 Respiratory Rate 20 20 Blood Pressure 99/50 L Pulse Oximetry 94 94 Oxygen Delivery Nasal Cannula Oxygen Flow Rate 2 Fraction of Inspired Oxygen 01/29/25 12:00 01/29/25 13:17 01/29/25 13:17 Temperature Pulse Rate 99 99 Respiratory Rate 18 Blood Pressure Pulse Oximetry 98 Oxygen Delivery Nasal Cannula Oxygen Flow Rate 2 Fraction of Inspired Oxygen 01/29/25 13:22 01/29/25 14:00 01/29/25 16:29 Temperature 98.8 F Pulse Rate 105 H 100 100 Respiratory Rate 18 16 Blood Pressure 101/60 Pulse Oximetry 96 Oxygen Delivery Oxygen Flow Rate Fraction of Inspired Oxygen Intake/Output Intake/Output: Intake & Output 01/26/25 01/27/25 01/28/25 01/29/25 23:59 23:59 23:59 23:59 Intake Total 031 688 2624 600 Output Total 1400 2300 1900 1000 Balance -600 -1810 -10 -400 Meds/Results Medications: Active Medications Generic Name Dose Route Start Last Admin Trade Name Freq PRN Reason Stop Dose Admin Acetaminophen 650 mg 01/18/25 20:28 01/24/25 08:23 Acetaminophen Elixir 325 Mg/10.15 Ml Udc FEED TUBE 650 mg Q4H PRN Administration Mild Pain (1-3) or Fever Albuterol/Ipratropium 3 ml 01/29/25 14:00 01/29/25 13:16 Ipratropium 0.5 Mg/Albuterol Sulfate 2.5 Mg Ampul.Neb 3 Ml INHALATION 3 ml Q6HRT SESAR Administration Atorvastatin Calcium 20 mg 01/19/25 18:00 01/28/25 17:59 Atorvastatin 20 Mg Tablet PO 20 mg QPM SESAR Administration Benzonatate 200 mg 01/29/25 13:00 01/29/25 13:07 Benzonatate 100 Mg Capsule PO 200 mg TID SESAR Administration Dextrose 12.5 gm 01/27/25 05:42 Dextrose 50% 25 Gm/50 Ml Syringe IV PUSH PRN PRN Hypoglycemia Protocol Enoxaparin Sodium 40 mg 01/20/25 09:00 01/29/25 09:09 Enoxaparin 40 Mg/0.4 Ml Syringe SUB-Q 40 mg DAILY SESAR Administration Estradiol 1 mg 01/19/25 09:00 01/29/25 09:10 Estradiol 1 Mg Tablet PO 1 mg DAILY SESAR Administration Glucagon 1 mg 01/27/25 05:42 Glucagon For Inj 1 Mg Vial IM PRN PRN Hypoglycemia Protocol Glucose 15 gm 01/27/25 05:42 Glucose Oral Gel 15 Gm Of Glucse In 37.5 Gm Tube PO PRN PRN Hypoglycemia Protocol Guaifenesin 1,200 mg 01/29/25 10:30 01/29/25 11:47 Guaifenesin 12 Hr 600 Mg Tabcr PO 1,200 mg Q12HR SESAR Administration Dextrose 1,000 mls @ 100 mls/hr 01/27/25 05:42 Dextrose 5% 1,000 Ml IVPB PRN PRN Hypoglycemia Protocol Meropenem 1 gm in 100 mls @ 200 mls/hr 01/27/25 18:00 01/29/25 09:09 IVPB 200 mls/hr Q8H SESAR Administration Linezolid 600 mg in 300 mls @ 300 mls/hr 01/28/25 14:00 01/29/25 09:08 Zyvox IVPB 300 mls/hr Q12HR SESAR Administration Magnesium Sulfate/Dextrose 3 gm in 100 mls @ 33.333 mls/hr 01/29/25 16:15 Magnesium Sulfate 3gm/[id number] IVPB 01/29/25 19:14 ONCE ONE Insulin Aspart 3 - 6 units 01/27/25 06:30 01/29/25 12:15 Insulin Aspart (*Bkc) 100 Units/Ml SUB-Q Not Given ACHS [facility] Protocol Insulin Glargine 10 units 01/25/25 21:00 01/28/25 20:22 Insulin Glargine (*Bkc) 100 Units/Ml SUB-Q 10 units HS SESAR Administration Ipratropium [place] 0.5 mg 01/26/25 07:34 Ipratropium Br 0.02% Inh Soln 0.5 Mg/2.5 Ml Vial INHALATION Q6HRT PRN Wheezing Levalbuterol HCl 0.63 mg 01/26/25 07:34 01/26/25 22:37 Levalbuterol Neb 1.25 Mg/3 Ml INHALATION 0.63 mg Q6HRT PRN Administration Wheezing Metoprolol Tartrate 25 mg 01/26/25 21:45 01/29/25 09:10 Metoprolol Tartrate 25 Mg Tablet PO 25 mg Q12HR SESAR Administration Ondansetron HCl 4 mg 01/19/25 01:20 Ondansetron Inj 4 Mg/2 Ml Vial IV PUSH Q4H PRN Nausea And Vomiting Pantoprazole Sodium 40 mg 01/28/25 09:00 01/29/25 09:10 Pantoprazole 40 Mg Tablet PO 40 mg QAM SESAR Administration Polyethylene Glycol 17 gm 01/24/25 10:15 Polyethylene Glycol 3350 17 Gm Powd.Pack PO QAM PRN Constipation Senna/Docusate Sodium 1 tab 01/24/25 10:20 01/29/25 09:10 Senna/Docusate Sodium Tablet PO 1 tab Q12HR SESAR Administration Sodium Chloride 10 ml 01/19/25 06:00 01/29/25 01:43 Central Line Flush IV PUSH 10 ml Q8HR SESAR Administration Sodium Chloride 20 ml 01/19/25 04:13 01/25/25 05:16 Central Line Flush IV PUSH 20 ml PRN PRN Administration after blood draws Spironolactone 100 mg 01/19/25 09:00 Spironolactone 50 Mg Tablet PO Q12HR SESAR Radiology Results: ITS Impressions Chest CTA 01/18/25 15:25 IMPRESSION: 1. No pulmonary embolism. 2. Bilateral pneumonia in the lower lobes. Pneumonia in the lingula. Minimal changes of pneumonia in the right middle lobe. Pneumonia in the right upper lobe posteriorly. Follow-up to resolution is advised. Head CT 01/22/25 10:18 Impression: No significant abnormality seen. Abdomen X-Ray 01/23/25 15:14 IMPRESSION: Orogastric tube in good position and ready for immediate use. Cervical Spine MRI 01/27/25 16:12 IMPRESSION: 1. Mild cervical spondylosis. Thoracic Spine MRI 01/27/25 16:25 IMPRESSION: 1. 15 degrees thoracic levoscoliosis with mild spondylosis. 2. Consolidation in the bilateral lower lobes which could represent atelectasis or pneumonia. Lumbar Spine MRI 01/27/25 16:40 IMPRESSION: 1. . 20 degrees lumbar dextroscoliosis with severe spondylosis. Chest CT 01/28/25 15:29 IMPRESSION: Interval progression of multifocal consolidation within the bilateral lung martini, now demonstrating cavitation with intracavitary nodule in the lingula for which the differential diagnosis is broad but includes reactivated tuberculosis, aspergillosis, autoimmune etiology and infection versus septic pulmonary emboli (thought to be less likely secondary to cavitary distribution) Chest X-Ray 01/29/25 11:37 Impression: Bilateral lower lobe consolidation, left worse than right. Findings are suspicious for bilateral pneumonia versus possibly pulmonary edema/atelectasis. Small left pleural effusion and minimal right pleural effusion. Modified Barium Swallow 01/29/25 15:03 IMPRESSION: Pharyngeal dysphagia with laryngeal penetration and aspiration. Please correlate with speech pathologist findings and specific feeding recommendations. Labs Labs: Laboratory Results - last 24 hr 01/28/25 01/29/25 01/29/25 19:36 04:26 07:36 WBC 11.3 H RBC 3.05 L Hgb 9.9 L Hct 30.9 L MCV 101.3 H MCH 32.5 MCHC 32.0 RDW 15.1 H Plt Count 524 H MPV 9.6 Sodium 137 Potassium 3.1 L Chloride 107 Carbon Dioxide 27 Anion Gap 3 L BUN 10 Creatinine 0.51 L Estim Creat Clear Calc 92 Estimated GFR > 60 Glucose 132 H POC Capillary Glucose 181 H 116 H Calcium 8.4 Phosphorus 3.0 Magnesium 2.0 Total Bilirubin 0.5 AST 42 H ALT 38 H Alkaline Phosphatase 53 C-Reactive Protein 4.8 H NT-Pro-B Natriuret Pep 224 H Total Protein 5.6 L Albumin 2.4 L Procalcitonin 0.1 01/29/25 01/29/25 01/29/25 11:47 15:32 16:02 WBC RBC Hgb Hct MCV MCH MCHC RDW Plt Count MPV Sodium Potassium 3.4 Chloride Carbon Dioxide Anion Gap BUN Creatinine Estim Creat Clear Calc Estimated GFR Glucose POC Capillary Glucose 129 H 116 H Calcium Phosphorus Magnesium 1.3 L Total Bilirubin AST ALT Alkaline Phosphatase C-Reactive Protein NT-Pro-B Natriuret Pep Total Protein Albumin Procalcitonin Quality VTE Prophylaxis VTE prophylaxis: pharmacologic ordered Hospitalist [facility] Advance Care Plan I have confirmed that the patient's Advanced Care Plan is present, code status is documented, or surrogate decision maker is listed in patient medical record.: Yes Medication Reconciliation I have utilized all available resources to obtain, update and review the patients current medications (includes all prescriptions, OTC, herbals, cannabis, and nutritional supplements).: Yes
[2025-01-29] MEDS: MAGNESIUM SULFATE 3GM/D5W100ML 3 GM/100 ML BAG IVPB (17:17)
[2025-01-29] MEDS: BENZOCAINE/TETRACAINE SPRAY (*SP) 56 ML AEROSOL 1 SPRAY MUCOUS MEM ×2 (18:42→22:41)
[2025-01-29] MEDS: ATORVASTATIN 20 MG TABLET PO (18:42)
[2025-01-29 21:15] LABS: Glucose Point of Care 141 mg/dl (65-105)
[2025-01-29] MEDS: guaiFENesin 200 MG/10 ML UDC 400 MG FEED TUBE (21:56)
[2025-01-29] MEDS: INSULIN GLARGINE (*BKC) 100 UNITS/ML 10 UNITS SUB-Q (21:59)
[2025-01-30] VITALS (25 sets, daily range): BP systolic 92–102; BP diastolic 46–62; PULSE 96–115; RESP 16–20; TEMP 36.4–36.8; O2SAT 91–99
[2025-01-30] MEDS: MEROPENEM 1 GM/NS 100 ML 1 GM/100 ML BAG IVPB ×3 (01:49→17:23)
[2025-01-30] MEDS: guaiFENesin 200 MG/10 ML UDC 400 MG FEED TUBE ×6 (01:51→21:39)
[2025-01-30] MEDS: IPRATROPIUM 0.5 MG/ALBUTEROL SULFATE 2.5 MG AMPUL.NEB 3 ML INHALATION ×4 (02:31→20:36)
[2025-01-30 04:57] LABS: Basophils Percent Auto 0.2 % (0.2-1.2); Eosinophils Absolute Auto 0.1 K/mm3 (0-0.3); Eosinophils Percent Auto 1.1 % (0-4.4); Hematocrit 28.1 % (37.0-47.0); Immature Granulocyte Absolute 0.05 K/mm3 (0.00-0.031); Immature Granulocyte Percent A 0.6 % (0-0.5); Lymphocytes Absolute Auto 1.08 K/mm3 (0.9-3.2); Lymphocytes Percent Auto 12.2 % (18.3-44.2); Mean Corpuscular Hemoglobin 32.7 pg (26-34); Mean Corpuscular Volume 102.2 fl (80-100); Mean Platelet Volume 9.9 fl (7.4-10.4); Monocytes Absolute Auto 0.7 K/mm3 (0.1-0.6); Monocytes Percent Auto 7.3 % (2.6-8.5); Neutrophils Percent Auto 78.6 % (45.5-73.1); Platelet Count Result 502 k/mm3 (150-375); Red Blood Count 2.75 M/mm3 (4.2-5.4); Red Cell Distribution Width 15.1 % (11.5-14.5); White Blood Count 8.9 K/mm3 (4.5-10.0)
[2025-01-30 05:24] LABS: Alanine Aminotransferase 33 U/L (6-35); Albumin Level 2.7 g/dL (3.5-5.1); Alkaline Phosphatase 56 U/L (38-126); Anion Gap 6 mmol/L (4-12); Aspartate Amino Transferase 36 U/L (14-36); Bilirubin,Total 0.6 mg/dL (0.2-1.3); Blood Urea Nitrogen 7 mg/dL (7-17); Calcium 8.3 mg/dL (8.4-10.2); Carbon Dioxide 24 mmol/L (22-30); Chloride 107 mmol/L (98-107); Estimated CRCL calculation 97 ml/min; Estimated Glomerular Filt Rate > 60; Glucose 139 mg/dL (65-110); Magnesium 2.4 mg/dL (1.6-2.3); Phosphorus 2.9 mg/dL (2.5-4.5); Potassium 3.5 mmol/L (3.4-5.0); Sodium 137 mmol/L (137-145); Total Protein 5.8 g/dL (6.3-8.2)
[2025-01-30] MEDS: LINEZOLID 600 MG/300 ML 600 MG/300 ML SOLN 300 MG IVPB ×2 (08:02→21:43)
[2025-01-30] MEDS: PANTOPRAZOLE 40 MG TABLET PO (08:02)
[2025-01-30] MEDS: estradioL 1 MG TABLET PO (08:02)
[2025-01-30] MEDS: ENOXAPARIN 40 MG/0.4 ML SYRINGE SUB-Q (08:02)
[2025-01-30] MEDS: SENNA/DOCUSATE SODIUM TABLET 1 TAB PO (08:02)
[2025-01-30] MEDS: METOPROLOL TARTRATE 25 MG TABLET PO ×2 (08:02→21:39)
[2025-01-30 08:03] LABS: Glucose Point of Care 181 mg/dl (65-105)
--- NOTE | 2025-01-30 09:44 | P.PNIM_ITS ---
Progress Note: A&P Assessment and Plan (1) Septic shock: Code(s): A41.9 - Sepsis, unspecified organism; R65.21 - Severe sepsis with septic shock Status: Acute Assessment and Plan: Patient presented with bilateral lower lobe infiltrates, pneumonia, hypotension overnight requiring central line placement on 01/19, and Levophed -01/20: currently off all pressors -01/18: Blood and sputum cultures growing MSSA -01/20 and 01/23: Repeat blood cultures negative so far -status post doxycycline for 5 days -01/21: started on Cefazolin and DC cefepime, vancomycin (01/21) -patient received a course of Solu-Medrol for 4 doses, wheezing has improved -01/23: Patient again febrile with a T-max of 101.3?, thick yellow colored secretions from the ET tube, white blood cell count trending up. FiO2 requirements going up, Will repeat blood cultures, -01/23: DC cefazolin. Started vancomycin and meropenem (01/23) Fever curve much improved, patient is afebrile, improvement in WBC 1625: Echocardiogram Summary 1. Left ventricular chamber dimension is normal. 2. Left ventricular systolic function is normal, estimated at 60-65. 3. The left ventricular diastolic function is grade I diastolic dysfunction. 4. Right ventricular chamber dimension is mildly enlarged. 5. Right ventricular systolic function is normal. 6. Right atrial chamber dimension is mildly enlarged. 7. There is mild to moderate tricuspid valve regurgitation. (2) Acute hypoxic respiratory failure: Code(s): J96.01 - Acute respiratory failure with hypoxia Status: Acute Assessment and Plan: 01/18: Patient presented the ED with shortness of breath, weakness, diabetic ketoacidosis, pneumonia. Intubated in the ED for airway protection and hypoxia 01/25 extubated -chest x-ray and ABGs reviewed, - CTA chest on admission showed bilateral lower lobe pneumonia -positive for influenza A, On Tamiflu -01/23: bilateral diffuse wheezing, continue bronchodilators and received a course Solu-Medrol -wheezing which improved this morning, Continue supplemental oxygen Incentive spirometry -01/28: CT chest shows cavitary lesions. -continue meropenem -started linezolid 01/15: CTA chest IMPRESSION: 1. No pulmonary embolism. 2. Bilateral pneumonia in the lower lobes. Pneumonia in the lingula. Minimal changes of pneumonia in the right middle lobe. Pneumonia in the right upper lobe posteriorly. Follow-up to resolution is advised. (3) PNA (pneumonia): Code(s): J18.9 - Pneumonia, unspecified organism Status: Acute Assessment and Plan: 01/28/2025 CT shows a cavitary lesions in lung Currently on meropenem and linezolid Order QuantiFERON test Order PEPITO to rule out valve vegetation 01/28: CT Chest:Interval progression of multifocal consolidation within the bilateral lung martini, now demonstrating cavitation with intracavitary nodule in the lingula for which the differential diagnosis is broad but includes reactivated tuberculosis, aspergillosis, autoimmune etiology and infection versus septic pulmonary emboli (thought to be less likely secondary to cavitary distribution) (4) DKA (diabetic ketoacidosis): Code(s): E11.10 - Type 2 diabetes mellitus with ketoacidosis without coma Status: Acute Assessment and Plan: Patient presented with elevated beta hydroxybutyrate, anion gap metabolic acidosis, UA showed ketones, glucose -likely euglycemic diabetic ketoacidosis as patient was still taking Jardiance and metformin -this given 3 L IV fluids since admission, started on insulin infusion per DKA protocol -overnight patient was transition to long-acting insulin Lantus, and sliding scale insulin with Accu-Chek -continue to monitor -blood sugars in stable, continue Accu-Cheks, sliding scale insulin and Lantus (5) Flu: Code(s): J11.1 - Influenza due to unidentified influenza virus with other respiratory manifestations Status: Acute Assessment and Plan: Patient was tested positive for influenza A -status post course of Tamiflu (6) Chronic low blood pressure: Code(s): I95.89 - Other hypotension Status: Acute Assessment and Plan: Patient has chronic low blood pressures, according the daughter systolic blood pressures range in the 80s to 90s -blood pressures remain stable off pressors (7) Sinus tachycardia: Code(s): R00.0 - Tachycardia, unspecified Status: Acute Assessment and Plan: Has a history of chronic sinus tachycardia for which she is on metoprolol at home, -patient's heart rate is in the 100-110 which is her baseline -01/23: Restarted home metoprolol Change bronchodilators p.r.n. Check thyroid function test (8) PCOS (polycystic ovarian syndrome): Code(s): E28.2 - Polycystic ovarian syndrome Status: Acute Assessment and Plan: Hold spironolactone (9) Hyperlipidemia: Code(s): E78.5 - Hyperlipidemia, unspecified Status: Acute Assessment and Plan: continue Atorvastatin (10) Electrolyte imbalance: Code(s): E87.8 - Other disorders of electrolyte and fluid balance, not elsewhere classified Status: Acute Assessment and Plan: Replace potassium (11) Encephalopathy: Code(s): G93.40 - Encephalopathy, unspecified Status: Acute Assessment and Plan: Improving. Part delirium. Will get her up in a chair, PT OT, IS (12) Right foot drop: Code(s): M21.371 - Foot drop, right foot Status: Acute Assessment and Plan: Acute finding Reviewed MRI cervical, thoracic and lumbar Evidence of New cavitary lesions in lung Will repeat MRI lumbar needed Dr. Domingo reviewed with MRI with Radiology to definitely rule out osteomyelitis, diskitis or spinal abscess Consulted neurology and Neurosurgery Evidence of bowel incontinence Consider AFO EMG after Neurology recommendation PT OT (13) Dysphagia: Code(s): R13.10 - Dysphagia, unspecified Status: Acute Assessment and Plan: 0 01/29 patient failed swallow study NPO Insert NG and start nutrition Dietitian on board Plan DVT prophylaxis: Lovenox Stress ulcer prophylaxis: Protonix Nutrition: Swallow study ordered and pending Code Status: Full code Subjective Date/time seen: 01/30/25 09:44 Interval history: Pending QuantiFERON test. Patient was evaluated by the Cardiology and wants to repeat the swallow study for recent swallowing issues. Patient was re-evaluated for swallowing studies and unfortunately patient has silent aspiration and currently on NPO. Inserted Dobbhoff tube and started nutrition. Will repeat the swallow study early next week and then patient will undergo PEPITO. Review of Systems Review of Systems: All systems reviewed & are unremarkable except as noted in HPI and below (HPI) ROS unobtainable: Yes unobtainable due to endotracheal tube, unobtainable due to medical condition and unobtainable due to mental status Exam Narrative: General: Awake alert in no acute distress HEENT:? Pupils small and reactive bilaterally, sclera is clear, Neck:? Supple, right IJ central line in place Respiratory:? Coarse breath sounds bilaterally, decreased at bases, bilateral wheezing, no tachypnea use of accessory muscles or respiratory distress Cardiac:? Sinus tachycardia, S1-S2 was normal, no murmurs Abdomen:? Soft, nontender, nondistended, hypoactive bowel sounds Extremities:? No edema, palpable pedal pulses Neuro:? Intubated, AO x3 follows simple commands in all extremities carries conversation but is little confused and goes tangential when answering questions Skin:? No lesions noted Psych:? Normal speech and affect Objective Data Vital Signs Vital Signs: Vital Signs - 24 hr 01/29/25 10:00 01/29/25 11:58 01/29/25 12:00 Temperature 97.9 F Pulse Rate 88 93 93 Respiratory Rate 20 20 Blood Pressure 99/50 L Pulse Oximetry 94 94 Oxygen Delivery Nasal Cannula Oxygen Flow Rate 2 Fraction of Inspired Oxygen 01/29/25 12:00 01/29/25 13:17 01/29/25 13:17 Temperature Pulse Rate 99 99 Respiratory Rate 18 Blood Pressure Pulse Oximetry 98 Oxygen Delivery Nasal Cannula Oxygen Flow Rate 2 Fraction of Inspired Oxygen 01/29/25 13:22 01/29/25 14:00 01/29/25 16:00 Temperature Pulse Rate 105 H 100 Respiratory Rate 18 Blood Pressure Pulse Oximetry 96 Oxygen Delivery Nasal Cannula Oxygen Flow Rate 1.5 Fraction of Inspired Oxygen 01/29/25 16:00 01/29/25 16:29 01/29/25 18:00 Temperature 98.8 F Pulse Rate 95 100 95 Respiratory Rate 16 Blood Pressure 101/60 Pulse Oximetry 96 Oxygen Delivery Oxygen Flow Rate Fraction of Inspired Oxygen 01/29/25 20:00 01/29/25 20:00 01/29/25 21:00 Temperature 98.1 F Pulse Rate 109 H 110 H 111 H Respiratory Rate 20 18 Blood Pressure 106/47 L Pulse Oximetry 99 Oxygen Delivery Oxygen Flow Rate Fraction of Inspired Oxygen 01/29/25 21:15 01/29/25 21:17 01/29/25 21:55 Temperature Pulse Rate 112 H 118 H Respiratory Rate 18 Blood Pressure Pulse Oximetry 92 Oxygen Delivery Room Air Oxygen Flow Rate Fraction of Inspired Oxygen 01/29/25 22:00 01/29/25 23:48 01/30/25 00:00 Temperature 97.8 F Pulse Rate 119 H 106 H 103 H Respiratory Rate 20 Blood Pressure 95/47 L Pulse Oximetry 92 Oxygen Delivery Oxygen Flow Rate Fraction of Inspired Oxygen 01/30/25 02:00 01/30/25 02:32 01/30/25 02:38 Temperature Pulse Rate 108 H 105 H 104 H Respiratory Rate 18 19 Blood Pressure Pulse Oximetry Oxygen Delivery Oxygen Flow Rate Fraction of Inspired Oxygen 01/30/25 04:00 01/30/25 04:00 01/30/25 04:00 Temperature 98 F Pulse Rate 106 H 101 H Respiratory Rate 16 Blood Pressure 96/48 L Pulse Oximetry 91 95 Oxygen Delivery Room Air Oxygen Flow Rate Fraction of Inspired Oxygen 01/30/25 06:00 01/30/25 07:50 01/30/25 07:50 Temperature Pulse Rate 101 H 101 H 101 H Respiratory Rate 18 20 Blood Pressure Pulse Oximetry 98 Oxygen Delivery Room Air Oxygen Flow Rate Fraction of Inspired Oxygen 21 01/30/25 08:00 01/30/25 08:00 01/30/25 08:02 Temperature 97.6 F Pulse Rate 99 102 H 108 H Respiratory Rate 18 18 Blood Pressure 94/62 L Pulse Oximetry 99 Oxygen Delivery Oxygen Flow Rate Fraction of Inspired Oxygen Intake/Output Intake/Output: Intake & Output 01/27/25 01/28/25 01/29/25 01/30/25 23:59 23:59 23:59 23:59 Intake Total 490 1890 1600 100 Output Total 2300 1900 1450 1400 Balance -1810 -10 150 -1300 Meds/Results Medications: Active Medications Generic Name Dose Route Start Last Admin Trade Name Freq PRN Reason Stop Dose Admin Acetaminophen 650 mg 01/18/25 20:28 01/24/25 08:23 Acetaminophen Elixir 325 Mg/10.15 Ml Udc FEED TUBE 650 mg Q4H PRN Administration Mild Pain (1-3) or Fever Albuterol/Ipratropium 3 ml 01/29/25 14:00 01/30/25 07:51 Ipratropium 0.5 Mg/Albuterol Sulfate 2.5 Mg Ampul.Neb 3 Ml INHALATION 3 ml Q6HRT SESAR Administration Atorvastatin Calcium 20 mg 01/19/25 18:00 01/29/25 18:42 Atorvastatin 20 Mg Tablet PO 20 mg QPM SESAR Administration Benzocaine/Butamben/Tetracaine HCl 1 spray 01/29/25 18:22 01/29/25 22:41 Benzocaine/Tetracaine [place] (*Sp) 56 Ml Aerosol MUCOUS MEM 1 spray Q4HR PRN Administration pain Benzonatate 200 mg 01/29/25 13:00 01/30/25 07:49 Benzonatate 100 Mg Capsule PO Not Given TID SESAR Dextrose 12.5 gm 01/27/25 05:42 Dextrose 50% 25 Gm/50 Ml Syringe IV PUSH PRN PRN Hypoglycemia Protocol Enoxaparin Sodium 40 mg 01/20/25 09:00 01/30/25 08:02 Enoxaparin 40 Mg/0.4 Ml Syringe SUB-Q 40 mg DAILY SESAR Administration Estradiol 1 mg 01/19/25 09:00 01/30/25 08:02 Estradiol 1 Mg Tablet PO 1 mg DAILY SESAR Administration Glucagon 1 mg 01/27/25 05:42 Glucagon For Inj 1 Mg Vial IM PRN PRN Hypoglycemia Protocol Glucose 15 gm 01/27/25 05:42 Glucose Oral Gel 15 Gm Of Glucse In 37.5 Gm Tube PO PRN PRN Hypoglycemia Protocol Guaifenesin 400 mg 01/29/25 21:00 01/30/25 08:02 Guaifenesin 200 Mg/10 Ml Udc FEED TUBE 400 mg Q4HR SESAR Administration Dextrose 1,000 mls @ 100 mls/hr 01/27/25 05:42 Dextrose 5% 1,000 Ml IVPB PRN PRN Hypoglycemia Protocol Meropenem 1 gm in 100 mls @ 200 mls/hr 01/27/25 18:00 01/30/25 02:19 IVPB Infused Q8H SESAR Infusion Linezolid 600 mg in 300 mls @ 300 mls/hr 01/28/25 14:00 01/30/25 08:02 Zyvox IVPB 300 mls/hr Q12HR SESAR Administration Insulin Aspart 3 - 6 units 01/27/25 06:30 01/30/25 05:34 Insulin Aspart (*Bkc) 100 Units/Ml SUB-Q Not Given ACHS [facility] Protocol Insulin Glargine 10 units 01/25/25 21:00 01/29/25 21:59 Insulin Glargine (*Bkc) 100 Units/Ml SUB-Q 10 units HS SESAR Administration Ipratropium [place] 0.5 mg 01/26/25 07:34 Ipratropium Br 0.02% Inh Soln 0.5 Mg/2.5 Ml Vial INHALATION Q6HRT PRN Wheezing Levalbuterol HCl 0.63 mg 01/26/25 07:34 01/26/25 22:37 Levalbuterol Neb 1.25 Mg/3 Ml INHALATION 0.63 mg Q6HRT PRN Administration Wheezing Metoprolol Tartrate 25 mg 01/26/25 21:45 01/30/25 08:02 Metoprolol Tartrate 25 Mg Tablet PO 25 mg Q12HR SESAR Administration Ondansetron HCl 4 mg 01/19/25 01:20 Ondansetron Inj 4 Mg/2 Ml Vial IV PUSH Q4H PRN Nausea And Vomiting Pantoprazole Sodium 40 mg 01/28/25 09:00 01/30/25 08:02 Pantoprazole 40 Mg Tablet PO 40 mg QAM SESAR Administration Polyethylene Glycol 17 gm 01/24/25 10:15 Polyethylene Glycol 3350 17 Gm Powd.Pack PO QAM PRN Constipation Senna/Docusate Sodium 1 tab 01/24/25 10:20 01/30/25 08:02 Senna/Docusate Sodium Tablet PO 1 tab Q12HR SESAR Administration Spironolactone 100 mg 01/19/25 09:00 Spironolactone 50 Mg Tablet PO Q12HR SESAR Radiology Results: ITS Impressions Chest CTA 01/18/25 15:25 IMPRESSION: 1. No pulmonary embolism. 2. Bilateral pneumonia in the lower lobes. Pneumonia in the lingula. Minimal changes of pneumonia in the right middle lobe. Pneumonia in the right upper lobe posteriorly. Follow-up to resolution is advised. Head CT 01/22/25 10:18 Impression: No significant abnormality seen. Cervical Spine MRI 01/27/25 16:12 IMPRESSION: 1. Mild cervical spondylosis. Thoracic Spine MRI 01/27/25 16:25 IMPRESSION: 1. 15 degrees thoracic levoscoliosis with mild spondylosis. 2. Consolidation in the bilateral lower lobes which could represent atelectasis or pneumonia. Lumbar Spine MRI 01/27/25 16:40 IMPRESSION: 1. . 20 degrees lumbar dextroscoliosis with severe spondylosis. Chest CT 01/28/25 15:29 IMPRESSION: Interval progression of multifocal consolidation within the bilateral lung martini, now demonstrating cavitation with intracavitary nodule in the lingula for which the differential diagnosis is broad but includes reactivated tuberculosis, aspergillosis, autoimmune etiology and infection versus septic pulmonary emboli (thought to be less likely secondary to cavitary distribution) Chest X-Ray 01/29/25 11:37 Impression: Bilateral lower lobe consolidation, left worse than right. Findings are suspicious for bilateral pneumonia versus possibly pulmonary edema/atelectasis. Small left pleural effusion and minimal right pleural effusion. Modified Barium Swallow 01/29/25 15:03 IMPRESSION: Pharyngeal dysphagia with laryngeal penetration and aspiration. Please correlate with speech pathologist findings and specific feeding recommendations. Labs Labs: Laboratory Results - last 24 hr 01/29/25 01/29/25 01/29/25 11:47 15:32 16:02 WBC RBC Hgb Hct MCV MCH MCHC RDW Plt Count MPV Immature Gran % (Auto) Neut % (Auto) Lymph % (Auto) [place] % (Auto) Eos % (Auto) Baso % (Auto) Lymph # (Auto) [place] # (Auto) Eos # (Auto) Baso # (Auto) Abs Immat Gran (auto) Absolute Neuts (auto) Absolute Nucleated RBC Nucleated RBC % Sodium Potassium 3.4 Chloride Carbon Dioxide Anion Gap BUN Creatinine Estim Creat Clear Calc Estimated GFR Glucose POC Capillary Glucose 129 H 116 H Calcium Phosphorus Magnesium 1.3 L Total Bilirubin AST ALT Alkaline Phosphatase Total Protein Albumin 01/29/25 01/30/25 01/30/25 21:11 00:00 04:29 WBC 8.9 RBC 2.75 L Hgb 9.0 L Hct 28.1 L MCV 102.2 H MCH 32.7 MCHC 32.0 RDW 15.1 H Plt Count 502 H MPV 9.9 Immature Gran % (Auto) 0.6 H Neut % (Auto) 78.6 H Lymph % (Auto) 12.2 L [place] % (Auto) 7.3 Eos % (Auto) 1.1 Baso % (Auto) 0.2 Lymph # (Auto) 1.08 [place] # (Auto) 0.7 H Eos # (Auto) 0.1 Baso # (Auto) 0.0 Abs Immat Gran (auto) 0.05 H Absolute Neuts (auto) 7.0 H Absolute Nucleated RBC 0.000 Nucleated RBC % 0.0 Sodium 137 Potassium 3.5 Chloride 107 Carbon Dioxide 24 Anion Gap 6 BUN 7 Creatinine 0.48 L Estim Creat Clear Calc 97 Estimated GFR > 60 Glucose 139 H POC Capillary Glucose 141 H 181 H Calcium 8.3 L Phosphorus 2.9 Magnesium 2.4 H Total Bilirubin 0.6 AST 36 ALT 33 Alkaline Phosphatase 56 Total Protein 5.8 L Albumin 2.7 L Quality VTE Prophylaxis VTE prophylaxis: pharmacologic ordered Hospitalist MIPS Advance Care Plan I have confirmed that the patient's Advanced Care Plan is present, code status is documented, or surrogate decision maker is listed in patient medical record.: Yes Medication Reconciliation I have utilized all available resources to obtain, update and review the patients current medications (includes all prescriptions, OTC, herbals, cannabis, and nutritional supplements).: Yes
[2025-01-30 11:18] LABS: Glucose Point of Care 153 mg/dl (65-105)
[2025-01-30] MEDS: ATORVASTATIN 20 MG TABLET PO (17:24)
--- NOTE | 2025-01-30 18:31 | PM.PNPUL ---
Progress Note: A&P Assessment and Plan (1) Influenza A: Code(s): J10.1 - Influenza due to other identified influenza virus with other respiratory manifestations Status: Acute Assessment and Plan: Patient presented on 01/18/2025 with influenza a pneumonia, Staph aureus bacteremia and pneumonia. Patient was treated with Tamiflu on 01/18, 01/21 and 01/22. 01/28/25: Plan: would not entertain any additional Tamiflu at this time. 01/30/25; she has completed Tamiflu. (2) PNA (pneumonia): Code(s): J18.9 - Pneumonia, unspecified organism Status: Acute Assessment and Plan: Patient with no underlying lung disease. She has an unspecified autoimmune disease takes prednisone 1 time a year last use was 3 years ago. History of recurrent bronchitis but denies asthma or COPD. Blood cultures grew out Staph aureus sensitive to everything except tetracycline and sputum culture on 01/19/2025 grew out Staph aureus sensitive to everything except tetracycline. started on vancomycin and cefepime and doxycycline on 01/18 2025. Patient was switched to Ancef on 01/21/2025. Repeat blood cultures on 01/20/2025 negative x2. patient became afebrile on 01/23/2025. patient treated with Solu-Medrol 01/23 and 01/24. She had increased oxygen requirements on 01/25/2014 and was escalated from Ancef to meropenem and vancomycin (01/23 through 01/26). Currently the patient is on meropenem only (01/23 started). Patient had a CT scan of the chest that shows a cavity in the lingula, right middle lobe and possibly cavities in the consolidated area of the right lower lobe. There dense consolidations in the bases bilaterally and diffuse patchy infiltrates throughout the lungs. Linezolid added 01/28/25. Plan: patient with post influenza staph aureus pneumonia and bacteremia. she has a development of new cavities in her lungs bilaterally. I will send a QuantiFERON gold. I have discussed with ID pharmacy and patient should have been adequately covered for her Staph aureus since 01/18/2025, day 10. is unclear when these cavities developed after the CT scan on 01/18/2025. Will perform PEPITO to exclude endocarditis. I reviewed the MRI of the spine with Radiology and there is no evidence of osteomyelitis, diskitis or spinal abscess. Will continue meropenem and start linezolid today. CT scan of the chest with dense consolidation in the bases and new lingula and right middle lobe cavities. 01/29/2025: Overall the patient denies any rest shortness of breath. She does desaturate when she walks to the chair. She has severe coughing paroxysms and sometimes coughs for 45 minutes that causes chest pain. She says occasionally she hears herself wheezing. Currently she is on 2 L nasal cannula saturations 93%. She has been afebrile since 01/23. Her white blood cell count is 11.3, creatinine is 0.51. Her BNP is 224. Her procalcitonin has improved from 3.6 on 01/21/2025 to 0.1 today. Her CRP has improved from 17.4 on 01/24/2025 to 4.8 today. Plan: patient is afebrile, improved procalcitonin, improved leukocytosis, improved CRP. Patient should have been adequately covered for her Staph aureus since 01/18/2025, day 11. Continue meropenem, started 01/23, day 7 and linezolid started 01/28, day 2. Patient to have repeat swallow study and QuantiFERON gold result prior to PEPITO to exclude endocarditis. goal saturation 90-94%, wean as tolerated. Discussed with family in the room, Dr. Geronimo. will follow with you. 01/30/25; she is on room air, afebrile, coughing less intensely with green secretions. I added Cornet valve today to help with clearance of secretions. QuantiFERON gold is not back yet. White blood cell count is now normal 8.9. No fever. Continue meropenem day 8 started 01/23; continue linezolid day 3 started 01/28. She may need a PICC line to complete antibiotics for cavitary pneumonia. Subjective Date/time seen: 01/30/25 18:32 Interval history: 01/27/2025: This is a new pulmonary consult for influenza a pneumonia and hypoxemia. 54-year-old with a history of diabetes, polycystic ovarian syndrome, Raynaud's, Sjogren's, spinal stenosis, DJD, mouth sores and an unspecified autoimmune disease. Patient seen a duplication specialist from [place] in an out reach Clinic in [facility] and was diagnosed with a nonspecific autoimmune disease. She takes prednisone bursts for about a week every year. Her last use was approximately 3 years ago. Patient denies any history of childhood asthma, COPD but has had recurrent bronchitis episodes approximately once a year the last of which was 07/2020 for which she took antibiotics for 1 week and made a full recovery. Patient was at her baseline approximately 3 weeks ago and says she can walk 2 to 2-1/2 miles over 45-60 minutes with no respiratory limitations. She has no respiratory limitations in her activities of daily living. She is a never smoker and has no occupational exposures. Patient presented to the hospital on 01/18/2025 with shortness of breath, weakness and fatigue after she returned from a cruise To [facility] on 01/08/2025. On 01/14 the patient developed a cough with worsening shortness of breath. She lost her appetite and stopped eating or drinking on 01/16/2025. She developed shortness of breath on 01/18/2025 but did not want to go to a hospital in [place] so she flew home and family brought her straight from the airport to [facility]. She was tachypneic and extremely weak and was intubated. White blood cell count 10.3, 23% bands, patient was started on cefepime to, doxycycline and vancomycin for septic shock. She was started on Tamiflu in the emergency department. Patient received Tamiflu on 01/18, 01/21 and 01/22. Blood cultures grew out Staph aureus sensitive to everything except tetracycline and sputum culture on 01/19/2025 grew out Staph aureus sensitive to everything except tetracycline. Patient was switched to Ancef. Repeat blood cultures on 01/21/2020 5- x2. patient became afebrile on 01/23/2025. She had increased oxygen requirements on 01/25/2014 and was escalated from Ancef to meropenem and vancomycin (01/23 through 01/26). Currently the patient is on meropenem only (01/23 started). Patient had a CT scan of the chest that shows a cavity in the lingula, right middle lobe and possibly cavities in the consolidated area of the right lower lobe. There dense consolidations in the bases bilaterally and diffuse patchy infiltrates throughout the lungs. Linezolid added 01/28/25. 01/28/2025: Patient complains of a dry cough that has persisted since she was extubated on 01/25. She denies fever but feels warm with no chills or rigors. She has no rest shortness of breath. Currently she is on 3 L with saturations 92-96%. She can do incentive spirometry and 1000 mL but this does provoke a cough. Her last fever was 614 at 6:38 a.m.. White blood cell count 16.4, creatinine 0.49, last CRP was 17.4 decreased from 45 on admission. Last procalcitonin is 3.6, decreased from a peak of 12.5 on 01/19/2025. Patient developed a right foot drop has a history of chronic back pain. CT scan of the chest with dense consolidation in the bases and new lingula and right middle lobe cavities. 01/28/25 01/29/2025: Overall the patient denies any rest shortness of breath. She does desaturate when she walks to the chair. She has severe coughing paroxysms and sometimes coughs for 45 minutes that causes chest pain. She says occasionally she hears herself wheezing. Currently she is on 2 L nasal cannula saturations 93%. She has been afebrile since 01/23. Her white blood cell count is 11.3, creatinine is 0.51. Her BNP is 224. Her procalcitonin has improved from 3.6 on 01/21/2025 to 0.1 today. Her CRP has improved from 17.4 on 01/24/2025 to 4.8 today. 01/30/2025; in-patient hospital visit; Patient was seen January 30 at 18:30. and a daughter are present. She is on room air since yesterday, dropped a little overnight, sat in the chair from 9 am until 4 pm today. She is having green secretions, wants to try Cornet valve. She is using Incentive spirometer. Dobbhoff is in place. She is feeling better, cough is less intense. White blood cell count is normal today 8.9 down from 11.3. DATA: 01/28/25: CLINICAL INDICATION: Shortness of breath, pneumonia suspected clinically COMPARISON: 01/18/2025 Reference is made to multiple plain film evaluations of the chest dated 01/26/2025 and dating back to 01/20/2025. TECHNIQUE: Multiple contiguous axial images of the chest was performed without the administration of intravenous contrast. This CT examination was performed utilizing dose reduction techniques. DLP: 124 mGy-cm FINDINGS/OBSERVATIONS: Interval extubation and removal of the orogastric tube with compared with previous study. No LUNG: Bibasilar consolidation, right greater than left. Patchy groundglass opacification within the bilateral pulmonary tomi, right greater than left. Cavitation is now identified within the lingula, with an intracavitary nodule. Cavitation is also now identified within the right middle lobe. Cavitation is an interval change from previous examination. HEART: The heart is of normal size, without pericardial effusion. MEDIASTINUM: Limited evaluation without intravenous contrast. SOFT TISSUES OF THE CHEST: Unremarkable. BONES OF THE CHEST: No acute fracture. No lytic or blastic lesions are identified. UPPER ABDOMEN: Gaseous distention of the stomach. The gallbladder is surgically absent. IMPRESSION: Interval progression of multifocal consolidation within the bilateral lung martini, now demonstrating cavitation with intracavitary nodule in the lingula for which the differential diagnosis is broad but includes reactivated tuberculosis, aspergillosis, autoimmune etiology and infection versus septic pulmonary emboli (thought to be less likely secondary to cavitary distribution) 01/19/2025: Echo Summary 1. Left ventricular chamber dimension is normal. 2. Left ventricular systolic function is normal, estimated at 60-65. 3. The left ventricular diastolic function is grade I diastolic dysfunction. 4. Right ventricular chamber dimension is mildly enlarged. 5. Right ventricular systolic function is normal. 6. Right atrial chamber dimension is mildly enlarged. 7. There is mild to moderate tricuspid valve regurgitation. Right Ventricle Right ventricular chamber dimension is mildly enlarged. Right ventricular systolic function is normal. Left Atria Left atrial chamber dimension is normal. Right Atria Right atrial chamber dimension is mildly enlarged. Atrial Septum Intact interatrial septum visualized by color flow imaging. RVSP 64. 01/27/2025 cervical, thoracic, lumbar spine MRI: IMPRESSION: 1. . 20 degrees lumbar dextroscoliosis with severe spondylosis. IMPRESSION: 1. 15 degrees thoracic levoscoliosis with mild spondylosis. 2. Consolidation in the bilateral lower lobes which could represent atelectasis or pneumonia. IMPRESSION: 1. Mild cervical spondylosis. 01/18/2025: CTA chest PE protocol Ordering provider: Maxi Macedo MD History: 54 years Female with . sob . Comparison: None. Findings: Endotracheal tube and nasogastric tube are noted. PULMONARY ARTERIES: No pulmonary embolus. VISUALIZED THORACIC INLET: Normal. MEDIASTINUM: Aorta/coronary arteries: Mild atheromatous disease. Heart/other: The heart is not enlarged. Lymph nodes: No mediastinal or hilar adenopathy. Small prevascular lymph nodes are noted. LUNGS: Bilateral lower lobe and lingular pneumonia is noted. Pneumonia in the right upper lobe posteriorly is also seen. Minimal consolidation also seen in the middle lobe. No pulmonary nodules or masses. No effusions. No pneumothorax. VISUALIZED UPPER ABDOMEN: Fat infiltration of the liver. Status post cholecystectomy. Otherwise, the visualized upper abdomen is normal. MUSCULOSKELETAL: Soft tissues: The superficial soft tissues are normal. Bones: Age appropriate degenerative changes of the spine. IMPRESSION: 1. No pulmonary embolism. 2. Bilateral pneumonia in the lower lobes. Pneumonia in the lingula. Minimal changes of pneumonia in the right middle lobe. Pneumonia in the right upper lobe posteriorly. Follow-up to resolution is advised. Review of Systems Review of Systems: All systems reviewed & are unremarkable except as noted in HPI and below Exam Const: General: cooperative, healthy appearing and comfortable Orientation/consciousness: oriented to person, oriented to place and oriented to time Other: no respiratory distress on Room Air HENMT: Head: normal to inspection Ears: hearing grossly normal bilaterally Eyes: General: appearance normal, both eyes and all related structures Neck: Neck: normal visual inspection Chest: Chest palpation & inspection: normal inspection of the chest Resp: Effort & Inspection: normal respiratory effort and able to speak in complete sentences Auscultation: crackles, no rales, no rhonchi, no wheezes and lung sounds not diminished Other: Few diffuse crackles, decreased breath sounds in the bases. No wheezes. Cardio: Jugular venous distension: no JVD Skin: General skin exam: normal color Neuro: General: oriented to person, oriented to place and oriented to time Extrem: General: normal to inspection Other: Inability to raise right foot. Loss of sensation top of foot. She has a soft boot on the right foot to support her footdrop. Psych: Appearance: grossly normal Objective Data Vital Signs Vital Signs: Vital Signs - 24 hr 01/29/25 20:00 01/29/25 20:00 01/29/25 21:00 Temperature 36.7 C Pulse Rate 109 H 110 H 111 H Respiratory Rate 20 18 Blood Pressure 106/47 L Pulse Oximetry 99 Oxygen Delivery Fraction of Inspired Oxygen 01/29/25 21:15 01/29/25 21:17 01/29/25 21:55 Temperature Pulse Rate 112 H 118 H Respiratory Rate 18 Blood Pressure Pulse Oximetry 92 Oxygen Delivery Room Air Fraction of Inspired Oxygen 01/29/25 22:00 01/29/25 23:48 01/30/25 00:00 Temperature 36.6 C Pulse Rate 119 H 106 H 103 H Respiratory Rate 20 Blood Pressure 95/47 L Pulse Oximetry 92 Oxygen Delivery Fraction of Inspired Oxygen 01/30/25 02:00 01/30/25 02:32 01/30/25 02:38 Temperature Pulse Rate 108 H 105 H 104 H Respiratory Rate 18 19 Blood Pressure Pulse Oximetry Oxygen Delivery Fraction of Inspired Oxygen 01/30/25 04:00 01/30/25 04:00 01/30/25 04:00 Temperature 36.6 C Pulse Rate 106 H 101 H Respiratory Rate 16 Blood Pressure 96/48 L Pulse Oximetry 91 95 Oxygen Delivery Room Air Fraction of Inspired Oxygen 01/30/25 06:00 01/30/25 07:50 01/30/25 07:50 Temperature Pulse Rate 101 H 101 H 101 H Respiratory Rate 18 20 Blood Pressure Pulse Oximetry 98 Oxygen Delivery Room Air Fraction of Inspired Oxygen 21 01/30/25 08:00 01/30/25 08:00 01/30/25 08:00 Temperature 36.4 C Pulse Rate 99 102 H Respiratory Rate 18 18 Blood Pressure 94/62 L Pulse Oximetry 99 Oxygen Delivery Room Air Fraction of Inspired Oxygen 01/30/25 08:00 01/30/25 08:02 01/30/25 10:00 Temperature Pulse Rate 106 H 108 H 101 H Respiratory Rate Blood Pressure Pulse Oximetry Oxygen Delivery Fraction of Inspired Oxygen 01/30/25 12:00 01/30/25 12:00 01/30/25 12:01 Temperature 36.6 C Pulse Rate 107 H 102 H Respiratory Rate 18 Blood Pressure 92/47 L Pulse Oximetry 95 Oxygen Delivery Room Air Fraction of Inspired Oxygen 01/30/25 13:28 01/30/25 13:36 01/30/25 14:00 Temperature Pulse Rate 103 H 102 H 104 H Respiratory Rate 18 18 Blood Pressure Pulse Oximetry Oxygen Delivery Fraction of Inspired Oxygen 01/30/25 16:00 01/30/25 16:00 01/30/25 16:14 Temperature 36.7 C Pulse Rate 96 110 H Respiratory Rate 18 Blood Pressure 92/46 L Pulse Oximetry 95 Oxygen Delivery Room Air Fraction of Inspired Oxygen 01/30/25 18:00 Temperature Pulse Rate 110 H Respiratory Rate Blood Pressure Pulse Oximetry Oxygen Delivery Fraction of Inspired Oxygen Intake/Output Intake/Output: Intake & Output 01/27/25 01/28/25 01/29/25 01/30/25 23:59 23:59 23:59 23:59 Intake Total 490 1890 1600 200 Output Total 2300 1900 1450 2151 Balance -181 -10 150 -195 Meds/Results Medications: Active Medications Generic Name Dose Route Start Last Admin Trade Name Freq PRN Reason Stop Dose Admin Acetaminophen 650 mg 01/18/25 20:28 01/24/25 08:23 Acetaminophen Elixir 325 Mg/10.15 Ml Udc FEED TUBE 650 mg Q4H PRN Administration Mild Pain (1-3) or Fever Albuterol/Ipratropium 3 ml 01/29/25 14:00 01/30/25 13:28 Ipratropium 0.5 Mg/Albuterol Sulfate 2.5 Mg Ampul.Neb 3 Ml INHALATION 3 ml Q6HRT SESAR Administration Atorvastatin Calcium 20 mg 01/19/25 18:00 01/30/25 17:24 Atorvastatin 20 Mg Tablet PO 20 mg QPM SESAR Administration Benzocaine/Butamben/Tetracaine HCl 1 spray 01/29/25 18:22 01/29/25 22:41 Benzocaine/Tetracaine [place] (*Sp) 56 Ml Aerosol MUCOUS MEM 1 spray Q4HR PRN Administration pain Benzonatate 200 mg 01/29/25 13:00 01/30/25 16:08 Benzonatate 100 Mg Capsule PO Not Given TID SESAR Dextrose 12.5 gm 01/27/25 05:42 Dextrose 50% 25 Gm/50 Ml Syringe IV PUSH PRN PRN Hypoglycemia Protocol Enoxaparin Sodium 40 mg 01/20/25 09:00 01/30/25 08:02 Enoxaparin 40 Mg/0.4 Ml Syringe SUB-Q 40 mg DAILY SESAR Administration Estradiol 1 mg 01/19/25 09:00 01/30/25 08:02 Estradiol 1 Mg Tablet PO 1 mg DAILY SESAR Administration Glucagon 1 mg 01/27/25 05:42 Glucagon For Inj 1 Mg Vial IM PRN PRN Hypoglycemia Protocol Glucose 15 gm 01/27/25 05:42 Glucose Oral Gel 15 Gm Of Glucse In 37.5 Gm Tube PO PRN PRN Hypoglycemia Protocol Guaifenesin 400 mg 01/29/25 21:00 01/30/25 17:23 Guaifenesin 200 Mg/10 Ml Udc FEED TUBE 400 mg Q4HR SESAR Administration Dextrose 1,000 mls @ 100 mls/hr 01/27/25 05:42 Dextrose 5% 1,000 Ml IVPB PRN PRN Hypoglycemia Protocol Meropenem 1 gm in 100 mls @ 200 mls/hr 01/27/25 18:00 01/30/25 17:23 IVPB 200 mls/hr Q8H SESAR Administration Linezolid 600 mg in 300 mls @ 300 mls/hr 01/28/25 14:00 01/30/25 08:02 Zyvox IVPB 300 mls/hr Q12HR SESAR Administration Insulin Aspart 3 - 6 units 01/27/25 06:30 01/30/25 11:29 Insulin Aspart (*Bkc) 100 Units/Ml SUB-Q Not Given ACHS [facility] Protocol Insulin Glargine 10 units 01/25/25 21:00 01/29/25 21:59 Insulin Glargine (*Bkc) 100 Units/Ml SUB-Q 10 units HS SESAR Administration Ipratropium [place] 0.5 mg 01/26/25 07:34 Ipratropium Br 0.02% Inh Soln 0.5 Mg/2.5 Ml Vial INHALATION Q6HRT PRN Wheezing Levalbuterol HCl 0.63 mg 01/26/25 07:34 01/26/25 22:37 Levalbuterol Neb 1.25 Mg/3 Ml INHALATION 0.63 mg Q6HRT PRN Administration Wheezing Metoprolol Tartrate 25 mg 01/26/25 21:45 01/30/25 08:02 Metoprolol Tartrate 25 Mg Tablet PO 25 mg Q12HR SESAR Administration Ondansetron HCl 4 mg 01/19/25 01:20 Ondansetron Inj 4 Mg/2 Ml Vial IV PUSH Q4H PRN Nausea And Vomiting Pantoprazole Sodium 40 mg 01/28/25 09:00 01/30/25 08:02 Pantoprazole 40 Mg Tablet PO 40 mg QAM SESAR Administration Polyethylene Glycol 17 gm 01/24/25 10:15 Polyethylene Glycol 3350 17 Gm Powd.Pack PO QAM PRN Constipation Senna/Docusate Sodium 1 tab 01/24/25 10:20 01/30/25 08:02 Senna/Docusate Sodium Tablet PO 1 tab Q12HR SESAR Administration Spironolactone 100 mg 01/19/25 09:00 Spironolactone 50 Mg Tablet PO Q12HR [facility] Radiology Results: ITS Impressions Chest CTA 01/18/25 15:25 IMPRESSION: 1. No pulmonary embolism. 2. Bilateral pneumonia in the lower lobes. Pneumonia in the lingula. Minimal changes of pneumonia in the right middle lobe. Pneumonia in the right upper lobe posteriorly. Follow-up to resolution is advised. Head CT 01/22/25 10:18 Impression: No significant abnormality seen. Cervical Spine MRI 01/27/25 16:12 IMPRESSION: 1. Mild cervical spondylosis. Thoracic Spine MRI 01/27/25 16:25 IMPRESSION: 1. 15 degrees thoracic levoscoliosis with mild spondylosis. 2. Consolidation in the bilateral lower lobes which could represent atelectasis or pneumonia. Lumbar Spine MRI 01/27/25 16:40 IMPRESSION: 1. . 20 degrees lumbar dextroscoliosis with severe spondylosis. Chest CT 01/28/25 15:29 IMPRESSION: Interval progression of multifocal consolidation within the bilateral lung martini, now demonstrating cavitation with intracavitary nodule in the lingula for which the differential diagnosis is broad but includes reactivated tuberculosis, aspergillosis, autoimmune etiology and infection versus septic pulmonary emboli (thought to be less likely secondary to cavitary distribution) Chest X-Ray 01/29/25 11:37 Impression: Bilateral lower lobe consolidation, left worse than right. Findings are suspicious for bilateral pneumonia versus possibly pulmonary edema/atelectasis. Small left pleural effusion and minimal right pleural effusion. Modified Barium Swallow 01/29/25 15:03 IMPRESSION: Pharyngeal dysphagia with laryngeal penetration and aspiration. Please correlate with speech pathologist findings and specific feeding recommendations. Labs Labs: Laboratory Results - last 24 hr 01/29/25 01/30/25 01/30/25 21:11 00:00 04:29 WBC 8.9 RBC 2.75 L Hgb 9.0 L Hct 28.1 L MCV 102.2 H MCH 32.7 MCHC 32.0 RDW 15.1 H Plt Count 502 H MPV 9.9 Immature Gran % (Auto) 0.6 H Neut % (Auto) 78.6 H Lymph % (Auto) 12.2 L [place] % (Auto) 7.3 Eos % (Auto) 1.1 Baso % (Auto) 0.2 Lymph # (Auto) 1.08 [place] # (Auto) 0.7 H Eos # (Auto) 0.1 Baso # (Auto) 0.0 Abs Immat Gran (auto) 0.05 H Absolute Neuts (auto) 7.0 H Absolute Nucleated RBC 0.000 Nucleated RBC % 0.0 Sodium 137 Potassium 3.5 Chloride 107 Carbon Dioxide 24 Anion Gap 6 BUN 7 Creatinine 0.48 L Estim Creat Clear Calc 97 Estimated GFR > 60 Glucose 139 H POC Capillary Glucose 141 H 181 H Calcium 8.3 L Phosphorus 2.9 Magnesium 2.4 H Total Bilirubin 0.6 AST 36 ALT 33 Alkaline Phosphatase 56 Total Protein 5.8 L Albumin 2.7 L 01/30/25 11:15 WBC RBC Hgb Hct MCV MCH MCHC RDW Plt Count MPV Immature Gran % (Auto) Neut % (Auto) Lymph % (Auto) [place] % (Auto) Eos % (Auto) Baso % (Auto) Lymph # (Auto) [place] # (Auto) Eos # (Auto) Baso # (Auto) Abs Immat Gran (auto) Absolute Neuts (auto) Absolute Nucleated RBC Nucleated RBC % Sodium Potassium Chloride Carbon Dioxide Anion Gap BUN Creatinine Estim Creat Clear Calc Estimated GFR Glucose POC Capillary Glucose 153 H Calcium Phosphorus Magnesium Total Bilirubin AST ALT Alkaline Phosphatase Total Protein Albumin
[2025-01-30 18:45] LABS: Glucose Point of Care 136 mg/dl (65-105)
[2025-01-30 21:39] LABS: Glucose Point of Care 150 mg/dl (65-105)
[2025-01-30] MEDS: INSULIN GLARGINE (*BKC) 100 UNITS/ML 10 UNITS SUB-Q (21:41)
[2025-01-31] VITALS (25 sets, daily range): BP systolic 87–117; BP diastolic 48–63; PULSE 93–109; RESP 16–18; TEMP 36.5–36.9; O2SAT 94–99
[2025-01-31 00:30] LABS: Glucose Point of Care 156 mg/dl (65-105)
[2025-01-31] MEDS: guaiFENesin 200 MG/10 ML UDC 400 MG FEED TUBE ×6 (01:58→21:17)
[2025-01-31] MEDS: MEROPENEM 1 GM/NS 100 ML 1 GM/100 ML BAG IVPB ×3 (01:59→17:49)
[2025-01-31] MEDS: IPRATROPIUM 0.5 MG/ALBUTEROL SULFATE 2.5 MG AMPUL.NEB 3 ML INHALATION ×4 (02:35→21:05)
[2025-01-31 04:38] LABS: Basophils Percent Auto 0.4 % (0.2-1.2); Eosinophils Absolute Auto 0.1 K/mm3 (0-0.3); Eosinophils Percent Auto 1.4 % (0-4.4); Hematocrit 27.5 % (37.0-47.0); Hemoglobin 8.7 g/dL (12.0-15.0); Immature Granulocyte Absolute 0.05 K/mm3 (0.00-0.031); Immature Granulocyte Percent A 0.7 % (0-0.5); Lymphocytes Absolute Auto 1.15 K/mm3 (0.9-3.2); Lymphocytes Percent Auto 15.6 % (18.3-44.2); Mean Corpuscular HGB Conc 31.6 g/dl (32-36); Mean Corpuscular Hemoglobin 32.5 pg (26-34); Mean Corpuscular Volume 102.6 fl (80-100); Mean Platelet Volume 9.7 fl (7.4-10.4); Monocytes Absolute Auto 0.7 K/mm3 (0.1-0.6); Neutrophils Absolute Auto 5.4 K/mm3 (1.3-6.7); Neutrophils Percent Auto 72.9 % (45.5-73.1); Platelet Count Result 470 k/mm3 (150-375); Red Blood Count 2.68 M/mm3 (4.2-5.4); Red Cell Distribution Width 15.1 % (11.5-14.5); White Blood Count 7.4 K/mm3 (4.5-10.0)
[2025-01-31 04:51] LABS: Alanine Aminotransferase 31 U/L (6-35); Albumin Level 2.7 g/dL (3.5-5.1); Alkaline Phosphatase 51 U/L (38-126); Anion Gap 6 mmol/L (4-12); Aspartate Amino Transferase 33 U/L (14-36); Bilirubin,Total 0.4 mg/dL (0.2-1.3); Blood Urea Nitrogen 6 mg/dL (7-17); Calcium 8.3 mg/dL (8.4-10.2); Carbon Dioxide 24 mmol/L (22-30); Chloride 107 mmol/L (98-107); Estimated CRCL calculation 103 ml/min; Estimated Glomerular Filt Rate > 60; Glucose 143 mg/dL (65-110); Magnesium 2.2 mg/dL (1.6-2.3); Phosphorus 3.1 mg/dL (2.5-4.5); Potassium 3.8 mmol/L (3.4-5.0); Sodium 137 mmol/L (137-145); Total Protein 5.9 g/dL (6.3-8.2)
[2025-01-31 06:36] LABS: Glucose Point of Care 136 mg/dl (65-105)
[2025-01-31] MEDS: METOPROLOL TARTRATE 25 MG TABLET PO ×2 (09:58→21:17)
[2025-01-31] MEDS: PANTOPRAZOLE 40 MG TABLET PO (09:58)
[2025-01-31] MEDS: LINEZOLID 600 MG/300 ML 600 MG/300 ML SOLN 300 MG IVPB ×2 (09:59→21:22)
[2025-01-31] MEDS: ENOXAPARIN 40 MG/0.4 ML SYRINGE SUB-Q (10:00)
[2025-01-31] MEDS: estradioL 1 MG TABLET PO (10:00)
[2025-01-31 11:41] LABS: Glucose Point of Care 142 mg/dl (65-105)
--- NOTE | 2025-01-31 14:30 | P.PNPL_ITS ---
Progress Note: A&P Assessment and Plan (1) Influenza A: Code(s): J10.1 - Influenza due to other identified influenza virus with other respiratory manifestations Status: Acute Assessment and Plan: Patient presented on 01/18/2025 with influenza a pneumonia, Staph aureus bacteremia and pneumonia. Patient was treated with Tamiflu on 01/18, 01/21 and 01/22. 01/28/25: Plan: would not entertain any additional Tamiflu at this time. 01/30/25; she has completed Tamiflu. (2) PNA (pneumonia): Code(s): J18.9 - Pneumonia, unspecified organism Status: Acute Assessment and Plan: Patient with no underlying lung disease. She has an unspecified autoimmune disease takes prednisone 1 time a year last use was 3 years ago. History of recurrent bronchitis but denies asthma or COPD. Blood cultures grew out Staph aureus sensitive to everything except tetracycline and sputum culture on 01/19/2025 grew out Staph aureus sensitive to everything except tetracycline. started on vancomycin and cefepime and doxycycline on 01/18 2025. Patient was switched to Ancef on 01/21/2025. Repeat blood cultures on 01/20/2025 negative x2. patient became afebrile on 01/23/2025. patient treated with Solu-Medrol 01/23 and 01/24. She had increased oxygen requirements on 01/25/2014 and was escalated from Ancef to meropenem and vancomycin (01/23 through 01/26). Currently the patient is on meropenem only (01/23 started). Patient had a CT scan of the chest that shows a cavity in the lingula, right middle lobe and possibly cavities in the consolidated area of the right lower lobe. There dense consolidations in the bases bilaterally and diffuse patchy infiltrates throughout the lungs. Linezolid added 01/28/25. Plan: patient with post influenza staph aureus pneumonia and bacteremia. she has a development of new cavities in her lungs bilaterally. I will send a QuantiFERON gold. I have discussed with ID pharmacy and patient should have been adequately covered for her Staph aureus since 01/18/2025, day 10. is unclear when these cavities developed after the CT scan on 01/18/2025. Will perform PEPITO to exclude endocarditis. I reviewed the MRI of the spine with Radi ology and there is no evidence of osteomyelitis, diskitis or spinal abscess. Will continue meropenem and start linezolid today. CT scan of the chest with dense consolidation in the bases and new lingula and right middle lobe cavities. 01/29/2025: Overall the patient denies any rest shortness of breath. She does desaturate when she walks to the chair. She has severe coughing paroxysms and sometimes coughs for 45 minutes that causes chest pain. She says occasionally she hears herself wheezing. Currently she is on 2 L nasal cannula saturations 93%. She has been afebrile since 01/23. Her white blood cell count is 11.3, creatinine is 0.51. Her BNP is 224. Her procalcitonin has improved from 3.6 on 01/21/2025 to 0.1 today. Her CRP has improved from 17.4 on 01/24/2025 to 4.8 today. Plan: patient is afebrile, improved procalcitonin, improved leukocytosis, improved CRP. Patient should have been adequately covered for her Staph aureus since 01/18/2025, day 11. Continue meropenem, started 01/23, day 7 and linezolid started 01/28, day 2. Patient to have repeat swallow study and QuantiFERON gold result prior to PEPITO to exclude endocarditis. goal saturation 90-94%, wean as tolerated. Discussed with family in the room, Dr. Geronimo. will follow with you. 01/30/25; she is on room air, afebrile, coughing less intensely with green secretions. I added Cornet valve today to help with clearance of secretions. QuantiFERON gold is not back yet. White blood cell count is now normal 8.9. No fever. Continue meropenem day 8 started 01/23; continue linezolid day 3 started 01/28. She may need a PICC line to complete antibiotics for cavitary pneumonia. 01/31/25; WBC lower 7.4, no fever; improved airway clearance with Cornet valve, afebrile. Continue meropenem day 9 started 01/23; continue linezolid day 4 started 01/28. Subjective Date/time seen: 01/31/25 14:30 Interval history: 01/27/2025: This is a new pulmonary consult for influenza a pneumonia and hypoxemia. 54-year-old with a history of diabetes, polycystic ovarian syndrome, Raynaud's, Sjogren's, spinal stenosis, DJD, mouth sores and an unspecified autoimmune disease. Patient seen a central control room operator from [place] in an out reach Clinic in [facility] and was diagnosed with a nonspecific autoimmune disease. She takes prednisone bursts for about a week every year. Her last use was approximately 3 years ago. Patient denies any history of childhood asthma, COPD but has had recurrent bronchitis episodes approximately once a year the last of which was 07/2020 for which she took antibiotics for 1 week and made a full recovery. Patient was at her baseline approximately 3 weeks ago and says she can walk 2 to 2-1/2 miles over 45-60 minutes with no respiratory limitations. She has no respiratory limitations in her activities of daily living. She is a never smoker and has no occupational exposures. Patient presented to the hospital on 01/18/2025 with shortness of breath, weakness and fatigue after she returned from a cruise [facility] on 01/08/2025. On 01/14 the patient developed a cough with worsening shortness of breath. She lost her appetite and stopped eating or drinking on 01/16/2025. She developed shortness of breath on 01/18/2025 but did not want to go to a hospital in [place] so she flew home and family brought her straight from the airport to [facility]. She was tachypneic and extremely weak and was intubated. White blood cell count 10.3, 23% bands, patient was started on cefepime to, doxycycline and vancomycin for septic shock. She was started on Tamiflu in the emergency department. Patient received Tamiflu on 01/18, 01/21 and 01/22. Blood cultures grew out Staph aureus sensitive to everything except tetracycline and sputum culture on 01/19/2025 grew out Staph aureus sensitive to everything except tetracycline. Patient was switched to Ancef. Repeat blood cultures on 01/21/2020 5- x2. patient became afebrile on 01/23/2025. She had increased oxygen requirements on 01/25/2014 and was escalated from Ancef to meropenem and vancomycin (01/23 through 01/26). Currently the patient is on meropenem only (01/23 started). Patient had a CT scan of the chest that shows a cavity in the lingula, right middle lobe and possibly cavities in the consolidated area of the right lower lobe. There dense consolidations in the bases bilaterally and diffuse patchy infiltrates throughout the lungs. Linezolid added 01/28/25. 01/28/2025: Patient complains of a dry cough that has persisted since she was extubated on 01/25. She denies fever but feels warm with no chills or rigors. She has no rest shortness of breath. Currently she is on 3 L with saturations 92-96%. She can do incentive spirometry and 1000 mL but this does provoke a cough. Her last fever was 614 at 6:38 a.m.. White blood cell count 16.4, creatinine 0.49, last CRP was 17.4 decreased from 45 on admission. Last procalcitonin is 3.6, decreased from a peak of 12.5 on 01/19/2025. Patient developed a right foot drop has a history of chronic back pain. CT scan of the chest with dense consolidation in the bases and new lingula and right middle lobe cavities. 01/28/25 01/29/2025: Overall the patient denies any rest shortness of breath. She does desaturate when she walks to the chair. She has severe coughing paroxysms and sometimes coughs for 45 minutes that causes chest pain. She says occasionally she hears herself wheezing. Currently she is on 2 L nasal cannula saturations 93%. She has been afebrile since 01/23. Her white blood cell count is 11.3, creatinine is 0.51. Her BNP is 224. Her procalcitonin has improved from 3.6 on 01/21/2025 to 0.1 today. Her CRP has improved from 17.4 on 01/24/2025 to 4.8 today. 01/30/2025; in-patient hospital visit; Patient was seen January 30 at 18:30. and a daughter are present. She is on room air since yesterday, dropped a little overnight, sat in the chair from 9 am until 4 pm today. She is having green secretions, wants to try Cornet valve. She is using Incentive spirometer. Dobbhoff is in place. She is feeling better, cough is less intense. White blood cell count is normal today 8.9 down from 11.3. 01/31/2025; Daughters are present. She was up in a chair for several hours. When walking to bathroom, had increased cough and sputum. The Cornet valve is helping clear green secretions, and she is using IS, gets this ti 1.5 L, excellent. She remains on room air. Tolerating Dobbhoff tube feeds. Will have swallow study repeated soon. WBC lower 7.4. DATA: 01/28/25: CLINICAL INDICATION: Shortness of breath, pneumonia suspected clinically COMPARISON: 01/18/2025 Reference is made to multiple plain film evaluations of the chest dated 01/26/2025 and dating back to 01/20/2025. TECHNIQUE: Multiple contiguous axial images of the chest was performed without the administration of intravenous contrast. This CT examination was performed utilizing dose reduction techniques. DLP: 124 mGy-cm FINDINGS/OBSERVATIONS: Interval extubation and removal of the orogastric tube with compared with previous study. No LUNG: Bibasilar consolidation, right greater than left. Patchy groundglass opacification within the bilateral pulmonary tomi, right greater than left. Cavitation is now identified within the lingula, with an intracavitary nodule. Cavitation is also now identified within the right middle lobe. Cavitation is an interval change from previous examination. HEART: The heart is of normal size, without pericardial effusion. MEDIASTINUM: Limited evaluation without intravenous contrast. SOFT TISSUES OF THE CHEST: Unremarkable. BONES OF THE CHEST: No acute fracture. No lytic or blastic lesions are identified. UPPER ABDOMEN: Gaseous distention of the stomach. The gallbladder is surgically absent. IMPRESSION: Interval progression of multifocal consolidation within the bilateral lung martini, now demonstrating cavitation with intracavitary nodule in the lingula for which the differential diagnosis is broad but includes reactivated tuberculosis, aspergillosis, autoimmune etiology and infection versus septic pulmonary emboli (thought to be less likely secondary to cavitary distribution) 01/19/2025: Echo Summary 1. Left ventricular chamber dimension is normal. 2. Left ventricular systolic function is normal, estimated at 60-65. 3. The left ventricular diastolic function is grade I diastolic dysfunction. 4. Right ventricular chamber dimension is mildly enlarged. 5. Right ventricular systolic function is normal. 6. Right atrial chamber dimension is mildly enlarged. 7. There is mild to moderate tricuspid valve regurgitation. Right Ventricle Right ventricular chamber dimension is mildly enlarged. Right ventricular systolic function is normal. Left Atria Left atrial chamber dimension is normal. Right Atria Right atrial chamber dimension is mildly enlarged. Atrial Septum Intact interatrial septum visualized by color flow imaging. RVSP 64. 01/27/2025 cervical, thoracic, lumbar spine MRI: IMPRESSION: 1. . 20 degrees lumbar dextroscoliosis with severe spondylosis. IMPRESSION: 1. 15 degrees thoracic levoscoliosis with mild spondylosis. 2. Consolidation in the bilateral lower lobes which could represent atelectasis or pneumonia. IMPRESSION: 1. Mild cervical spondylosis. 01/18/2025: CTA chest PE protocol Ordering provider: Maxi Macedo MD History: 54 years Female with . sob . Comparison: None. Findings: Endotracheal tube and nasogastric tube are noted. PULMONARY ARTERIES: No pulmonary embolus. VISUALIZED THORACIC INLET: Normal. MEDIASTINUM: Aorta/coronary arteries: Mild atheromatous disease. Heart/other: The heart is not enlarged. Lymph nodes: No mediastinal or hilar adenopathy. Small prevascular lymph nodes are noted. LUNGS: Bilateral lower lobe and lingular pneumonia is noted. Pneumonia in the right upper lobe posteriorly is also seen. Minimal consolidation also seen in the middle lobe. No pulmonary nodules or masses. No effusions. No pneumothorax. VISUALIZED UPPER ABDOMEN: Fat infiltration of the liver. Status post cholecystectomy. Otherwise, the visualized upper abdomen is normal. MUSCULOSKELETAL: Soft tissues: The superficial soft tissues are normal. Bones: Age appropriate degenerative changes of the spine. IMPRESSION: 1. No pulmonary embolism. 2. Bilateral pneumonia in the lower lobes. Pneumonia in the lingula. Minimal changes of pneumonia in the right middle lobe. Pneumonia in the right upper lobe posteriorly. Follow-up to resolution is advised. Review of Systems Review of Systems: All systems reviewed & are unremarkable except as noted in HPI and below Exam Const: General: cooperative, healthy appearing and comfortable Orientation/consciousness: oriented to person, oriented to place and oriented to time Other: no respiratory distress on Room Air HENMT: Head: normal to inspection Ears: hearing grossly normal bilaterally Eyes: General: appearance normal, both eyes and all related structures Neck: Neck: normal visual inspection Chest: Chest palpation & inspection: normal inspection of the chest Resp: Effort & Inspection: normal respiratory effort and able to speak in complete sentences Auscultation: crackles, no rales, no rhonchi, no wheezes and lung sounds not diminished Other: Few diffuse crackles, decreased breath sounds in the bases. No wheezes. Cardio: Jugular venous distension: no JVD Skin: General skin exam: normal color Neuro: General: oriented to person, oriented to place and oriented to time Extrem: General: normal to inspection Other: Inability to raise right foot. Loss of sensation top of foot. She has a soft boot on the right foot to support her footdrop. Psych: Appearance: grossly normal Objective Data Vital Signs Vital Signs: Vital Signs - 24 hr 01/30/25 16:00 01/30/25 16:00 01/30/25 16:14 Temperature 36.7 C Pulse Rate 96 110 H Respiratory Rate 18 Blood Pressure 92/46 L Pulse Oximetry 95 Oxygen Delivery Room Air Fraction of Inspired Oxygen 01/30/25 18:00 01/30/25 19:59 01/30/25 20:00 Temperature 36.8 C Pulse Rate 110 H 114 H Respiratory Rate 16 Blood Pressure 102/55 L Pulse Oximetry 95 Oxygen Delivery Room Air Fraction of Inspired Oxygen 01/30/25 20:00 01/30/25 20:36 01/30/25 20:43 Temperature Pulse Rate 115 H 100 Respiratory Rate 18 Blood Pressure Pulse Oximetry 98 Oxygen Delivery Room Air Fraction of Inspired Oxygen 21 01/30/25 20:50 01/30/25 21:39 01/30/25 22:00 Temperature Pulse Rate 100 115 H 115 H Respiratory Rate 18 Blood Pressure Pulse Oximetry Oxygen Delivery Fraction of Inspired Oxygen 01/31/25 00:00 01/31/25 00:00 01/31/25 00:00 Temperature 36.6 C Pulse Rate 93 102 H Respiratory Rate 18 Blood Pressure 101/58 L Pulse Oximetry 99 Oxygen Delivery Room Air Fraction of Inspired Oxygen 01/31/25 02:00 01/31/25 02:35 01/31/25 02:50 Temperature Pulse Rate 96 100 100 Respiratory Rate 18 18 Blood Pressure Pulse Oximetry Oxygen Delivery Fraction of Inspired Oxygen 01/31/25 04:00 01/31/25 04:00 01/31/25 04:00 Temperature 36.6 C Pulse Rate 103 H 103 H Respiratory Rate 18 Blood Pressure 92/54 L Pulse Oximetry 94 Oxygen Delivery Room Air Fraction of Inspired Oxygen 01/31/25 06:00 01/31/25 08:00 01/31/25 08:00 Temperature Pulse Rate 103 H 107 H Respiratory Rate Blood Pressure Pulse Oximetry Oxygen Delivery Room Air Fraction of Inspired Oxygen 01/31/25 08:02 01/31/25 09:03 01/31/25 09:03 Temperature 36.7 C Pulse Rate 101 H 104 H Respiratory Rate 16 18 Blood Pressure 92/48 L Pulse Oximetry 95 96 Oxygen Delivery Room Air Fraction of Inspired Oxygen 01/31/25 09:11 01/31/25 10:00 01/31/25 11:50 Temperature Pulse Rate 104 H 108 H Respiratory Rate 18 Blood Pressure Pulse Oximetry Oxygen Delivery Room Air Fraction of Inspired Oxygen 01/31/25 11:56 01/31/25 12:00 01/31/25 13:54 Temperature 36.5 C Pulse Rate 102 H 100 102 H Respiratory Rate 18 Blood Pressure 87/52 L Pulse Oximetry 99 Oxygen Delivery Fraction of Inspired Oxygen 01/31/25 14:00 01/31/25 14:04 Temperature Pulse Rate 107 H 103 H Respiratory Rate 18 Blood Pressure Pulse Oximetry Oxygen Delivery Fraction of Inspired Oxygen Intake/Output Intake/Output: Intake & Output 06/1901/29/25 01/30/25 01/31/25 23:59 23:59 23:59 23:59 Intake Total 1890 1600 2092 1065 Output Total 1900 1450 2901 900 Balance -10 150 -809 165 Meds/Results Medications: Active Medications Generic Name Dose Route Start Last Admin Trade Name Freq PRN Reason Stop Dose Admin Acetaminophen 650 mg 01/18/25 20:28 01/24/25 08:23 Acetaminophen Elixir 325 Mg/10.15 Ml Udc FEED TUBE 650 mg Q4H PRN Administration Mild Pain (1-3) or Fever Albuterol/Ipratropium 3 ml 01/29/25 14:00 01/31/25 13:53 Ipratropium 0.5 Mg/Albuterol Sulfate 2.5 Mg Ampul.Neb 3 Ml INHALATION 3 ml Q6HRT SESAR Administration Atorvastatin Calcium 20 mg 01/19/25 18:00 01/30/25 17:24 Atorvastatin 20 Mg Tablet PO 20 mg QPM SESAR Administration Benzocaine/Butamben/Tetracaine HCl 1 spray 01/29/25 18:22 01/29/25 22:41 Benzocaine/Tetracaine [place] (*Sp) 56 Ml Aerosol MUCOUS MEM 1 spray Q4HR PRN Administration pain Benzonatate 200 mg 01/29/25 13:00 01/31/25 14:11 Benzonatate 100 Mg Capsule PO Not Given TID SESAR Dextrose 12.5 gm 01/27/25 05:42 Dextrose 50% 25 Gm/50 Ml Syringe IV PUSH PRN PRN Hypoglycemia Protocol Enoxaparin Sodium 40 mg 01/20/25 09:00 01/31/25 10:00 Enoxaparin 40 Mg/0.4 Ml Syringe SUB-Q 40 mg DAILY SESAR Administration Estradiol 1 mg 01/19/25 09:00 01/31/25 10:00 Estradiol 1 Mg Tablet PO 1 mg DAILY SESAR Administration Glucagon 1 mg 01/27/25 05:42 Glucagon For Inj 1 Mg Vial IM PRN PRN Hypoglycemia Protocol Glucose 15 gm 01/27/25 05:42 Glucose Oral Gel 15 Gm Of Glucse In 37.5 Gm Tube PO PRN PRN Hypoglycemia Protocol Guaifenesin 400 mg 01/29/25 21:00 01/31/25 09:58 Guaifenesin 200 Mg/10 Ml Udc FEED TUBE 400 mg Q4HR SESAR Administration Dextrose 1,000 mls @ 100 mls/hr 01/27/25 05:42 Dextrose 5% 1,000 Ml IVPB PRN PRN Hypoglycemia Protocol Meropenem 1 gm in 100 mls @ 200 mls/hr 01/27/25 18:00 01/31/25 10:00 IVPB 200 mls/hr Q8H SESAR Administration Linezolid 600 mg in 300 mls @ 300 mls/hr 01/28/25 14:00 01/31/25 09:59 Zyvox IVPB 300 mls/hr Q12HR SESAR Administration Insulin Aspart 3 - 6 units 01/27/25 06:30 01/31/25 14:11 Insulin Aspart (*Bkc) 100 Units/Ml SUB-Q Not Given ACHS [facility] Protocol Insulin Glargine 10 units 01/25/25 21:00 01/30/25 21:41 Insulin Glargine (*Bkc) 100 Units/Ml SUB-Q 10 units HS SESAR Administration Ipratropium Alicia 0.5 mg 01/26/25 07:34 Ipratropium Br 0.02% Inh Soln 0.5 Mg/2.5 Ml Vial INHALATION Q6HRT PRN Wheezing Levalbuterol HCl 0.63 mg 01/26/25 07:34 01/26/25 22:37 Levalbuterol Neb 1.25 Mg/3 Ml INHALATION 0.63 mg Q6HRT PRN Administration Wheezing Metoprolol Tartrate 25 mg 01/26/25 21:45 01/31/25 09:58 Metoprolol Tartrate 25 Mg Tablet PO 25 mg Q12HR SESAR Administration Ondansetron HCl 4 mg 01/19/25 01:20 Ondansetron Inj 4 Mg/2 Ml Vial IV PUSH Q4H PRN Nausea And Vomiting Pantoprazole Sodium 40 mg 01/28/25 09:00 01/31/25 09:58 Pantoprazole 40 Mg Tablet PO 40 mg QAM SESAR Administration Polyethylene Glycol 17 gm 01/24/25 10:15 Polyethylene Glycol 3350 17 Gm Powd.Pack PO QAM PRN Constipation Senna/Docusate Sodium 1 tab 01/24/25 10:20 01/31/25 10:00 Senna/Docusate Sodium Tablet PO Not Given Q12HR [facility] Spironolactone 100 mg 01/19/25 09:00 Spironolactone 50 Mg Tablet PO Q12HR SESAR Radiology Results: ITS Impressions Chest CTA 01/18/25 15:25 IMPRESSION: 1. No pulmonary embolism. 2. Bilateral pneumonia in the lower lobes. Pneumonia in the lingula. Minimal changes of pneumonia in the right middle lobe. Pneumonia in the right upper lobe posteriorly. Follow-up to resolution is advised. Head CT 01/22/25 10:18 Impression: No significant abnormality seen. Cervical Spine MRI 01/27/25 16:12 IMPRESSION: 1. Mild cervical spondylosis. Thoracic Spine MRI 01/27/25 16:25 IMPRESSION: 1. 15 degrees thoracic levoscoliosis with mild spondylosis. 2. Consolidation in the bilateral lower lobes which could represent atelectasis or pneumonia. Lumbar Spine MRI 01/27/25 16:40 IMPRESSION: 1. . 20 degrees lumbar dextroscoliosis with severe spondylosis. Chest CT 01/28/25 15:29 IMPRESSION: Interval progression of multifocal consolidation within the bilateral lung martini, now demonstrating cavitation with intracavitary nodule in the lingula for which the differential diagnosis is broad but includes reactivated tuberculosis, aspergillosis, autoimmune etiology and infection versus septic pulmonary emboli (thought to be less likely secondary to cavitary distribution) Chest X-Ray 01/29/25 11:37 Impression: Bilateral lower lobe consolidation, left worse than right. Findings are suspic ious for bilateral pneumonia versus possibly pulmonary edema/atelectasis. Small left pleural effusion and minimal right pleural effusion. Modified Barium Swallow 01/29/25 15:03 IMPRESSION: Pharyngeal dysphagia with laryngeal penetration and aspiration. Please correlate with speech pathologist findings and specific feeding recommendations. Labs Labs: Laboratory Results - last 24 hr 01/30/25 01/30/25 01/31/25 18:42 21:36 00:28 WBC RBC Hgb Hct MCV MCH MCHC RDW Plt Count MPV Immature Gran % (Auto) Neut % (Auto) Lymph % (Auto) [place] % (Auto) Eos % (Auto) Baso % (Auto) Lymph # (Auto) [place] # (Auto) Eos # (Auto) Baso # (Auto) Abs Immat Gran (auto) Absolute Neuts (auto) Absolute Nucleated RBC Nucleated RBC % Sodium Potassium Chloride Carbon Dioxide Anion Gap BUN Creatinine Estim Creat Clear Calc Estimated GFR Glucose POC Capillary Glucose 136 H 150 H 156 H Calcium Phosphorus Magnesium Total Bilirubin AST ALT Alkaline Phosphatase Total Protein Albumin 01/31/25 01/31/25 01/31/25 04:24 06:34 11:27 WBC 7.4 RBC 2.68 L Hgb 8.7 L Hct 27.5 L MCV 102.6 H MCH 32.5 MCHC 31.6 L RDW 15.1 H Plt Count 470 H MPV 9.7 Immature Gran % (Auto) 0.7 H Neut % (Auto) 72.9 Lymph % (Auto) 15.6 L [place] % (Auto) 9.0 H Eos % (Auto) 1.4 Baso % (Auto) 0.4 Lymph # (Auto) 1.15 [place] # (Auto) 0.7 H Eos # (Auto) 0.1 Baso # (Auto) 0.0 Abs Immat Gran (auto) 0.05 H Absolute Neuts (auto) 5.4 Absolute Nucleated RBC 0.000 Nucleated RBC % 0.0 Sodium 137 Potassium 3.8 Chloride 107 Carbon Dioxide 24 Anion Gap 6 BUN 6 L Creatinine 0.45 L Estim Creat Clear Calc 103 Estimated GFR > 60 Glucose 143 H POC Capillary Glucose 136 H 142 H Calcium 8.3 L Phosphorus 3.1 Magnesium 2.2 Total Bilirubin 0.4 AST 33 ALT 31 Alkaline Phosphatase 51 Total Protein 5.9 L Albumin 2.7 L
--- NOTE | 2025-01-31 16:04 | P.PNIM_ITS ---
Progress Note: A&P Assessment and Plan (1) Septic shock: Code(s): A41.9 - Sepsis, unspecified organism; R65.21 - Severe sepsis with septic shock Status: Acute Assessment and Plan: Patient presented with bilateral lower lobe infiltrates, pneumonia, hypotension overnight requiring central line placement on 01/19, and Levophed -01/20: currently off all pressors -01/18: Blood and sputum cultures growing MSSA -01/20 and 01/23: Repeat blood cultures negative so far -status post doxycycline for 5 days -01/21: started on Cefazolin and DC cefepime, vancomycin (01/21) -patient received a course of Solu-Medrol for 4 doses, wheezing has improved -01/23: Patient again febrile with a T-max of 101.3?, thick yellow colored secretions from the ET tube, white blood cell count trending up. FiO2 requirements going up, Will repeat blood cultures, -01/23: DC cefazolin. Started vancomycin and meropenem (01/23) Fever curve much improved, patient is afebrile, improvement in WBC 1625: Echocardiogram Summary 1. Left ventricular chamber dimension is normal. 2. Left ventricular systolic function is normal, estimated at 60-65. 3. The left ventricular diastolic function is grade I diastolic dysfunction. 4. Right ventricular chamber dimension is mildly enlarged. 5. Right ventricular systolic function is normal. 6. Right atrial chamber dimension is mildly enlarged. 7. There is mild to moderate tricuspid valve regurgitation. (2) Acute hypoxic respiratory failure: Code(s): J96.01 - Acute respiratory failure with hypoxia Status: Acute Assessment and Plan: 01/18: Patient presented the ED with shortness of breath, weakness, diabetic ketoacidosis, pneumonia. Intubated in the ED for airway protection and hypoxia 01/25 extubated -chest x-ray and ABGs reviewed, - CTA chest on admission showed bilateral lower lobe pneumonia -positive for influenza A, On Tamiflu -01/23: bilateral diffuse wheezing, continue bronchodilators and received a course Solu-Medrol -wheezing which improved this morning, Continue supplemental oxygen Incentive spirometry -01/28: CT chest shows cavitary lesions. -continue meropenem -started linezolid 01/15: CTA chest IMPRESSION: 1. No pulmonary embolism. 2. Bilateral pneumonia in the lower lobes. Pneumonia in the lingula. Minimal changes of pneumonia in the right middle lobe. Pneumonia in the right upper lobe posteriorly. Follow-up to resolution is advised. (3) PNA (pneumonia): Code(s): J18.9 - Pneumonia, unspecified organism Status: Acute Assessment and Plan: 01/28/2025 CT shows a cavitary lesions in lung Currently on meropenem and linezolid Order QuantiFERON test Order PEPITO to rule out valve vegetation 01/28: CT Chest:Interval progression of multifocal consolidation within the bilateral lung martini, now demonstrating cavitation with intracavitary nodule in the lingula for which the differential diagnosis is broad but includes reactivated tuberculosis, aspergillosis, autoimmune etiology and infection versus septic pulmonary emboli (thought to be less likely secondary to cavitary distribution) (4) DKA (diabetic ketoacidosis): Code(s): E11.10 - Type 2 diabetes mellitus with ketoacidosis without coma Status: Acute Assessment and Plan: Patient presented with elevated beta hydroxybutyrate, anion gap metabolic acidosis, UA showed ketones, glucose -likely euglycemic diabetic ketoacidosis as patient was still taking Jardiance and metformin -this given 3 L IV fluids since admission, started on insulin infusion per DKA protocol -overnight patient was transition to long-acting insulin Lantus, and sliding scale insulin with Accu-Chek -continue to monitor -blood sugars in stable, continue Accu-Cheks, sliding scale insulin and Lantus (5) Flu: Code(s): J11.1 - Influenza due to unidentified influenza virus with other respiratory manifestations Status: Acute Assessment and Plan: Patient was tested positive for influenza A -status post course of Tamiflu (6) Chronic low blood pressure: Code(s): I95.89 - Other hypotension Status: Acute Assessment and Plan: Patient has chronic low blood pressures, according the daughter systolic blood pressures range in the 80s to 90s -blood pressures remain stable off pressors (7) Sinus tachycardia: Code(s): R00.0 - Tachycardia, unspecified Status: Acute Assessment and Plan: Has a history of chronic sinus tachycardia for which she is on metoprolol at home, -patient's heart rate is in the 100-110 which is her baseline -01/23: Restarted home metoprolol Change bronchodilators p.r.n. Check thyroid function test (8) PCOS (polycystic ovarian syndrome): Code(s): E28.2 - Polycystic ovarian syndrome Status: Acute Assessment and Plan: Hold spironolactone (9) Hyperlipidemia: Code(s): E78.5 - Hyperlipidemia, unspecified Status: Acute Assessment and Plan: continue Atorvastatin (10) Electrolyte imbalance: Code(s): E87.8 - Other disorders of electrolyte and fluid balance, not elsewhere classified Status: Acute Assessment and Plan: Replace potassium (11) Encephalopathy: Code(s): G93.40 - Encephalopathy, unspecified Status: Acute Assessment and Plan: Improving. Part delirium. Will get her up in a chair, PT OT, IS (12) Right foot drop: Code(s): M21.371 - Foot drop, right foot Status: Acute Assessment and Plan: Acute finding Reviewed MRI cervical, thoracic and lumbar Evidence of New cavitary lesions in lung Will repeat MRI lumbar needed Dr. Domingo reviewed with MRI with Radiology to definitely rule out osteomyelitis, diskitis or spinal abscess Consulted neurology and Neurosurgery Evidence of bowel incontinence Consider AFO EMG after Neurology recommendation PT OT (13) Dysphagia: Code(s): R13.10 - Dysphagia, unspecified Status: Acute Assessment and Plan: 0 01/29 patient failed swallow study NPO Insert NG and start nutrition Dietitian on board Plan DVT prophylaxis: Lovenox Stress ulcer prophylaxis: Protonix Nutrition: Swallow study ordered and pending Code Status: Full code Subjective Date/time seen: 01/31/25 16:04 Interval history: Tolerating tube feed. Undergoing speech therapy. Repeat MBS Saturday and possible PEPITO if she pass MBS. Review of Systems Review of Systems: All systems reviewed & are unremarkable except as noted in HPI and below (HPI) ROS unobtainable: Yes unobtainable due to endotracheal tube, unobtainable due to medical condition and unobtainable due to mental status Exam Narrative: General: Awake alert in no acute distress HEENT:? Pupils small and reactive bilaterally, sclera is clear, Neck:? Supple, right IJ central line in place Respiratory:? Coarse breath sounds bilaterally, decreased at bases, bilateral wheezing, no tachypnea use of accessory muscles or respiratory distress Cardiac:? Sinus tachycardia, S1-S2 was normal, no murmurs Abdomen:? Soft, nontender, nondistended, hypoactive bowel sounds Extremities:? No edema, palpable pedal pulses Neuro:? Intubated, AO x3 follows simple commands in all extremities carries conversation but is little confused and goes tangential when answering questions Skin:? No lesions noted Psych:? Normal speech and affect Objective Data Vital Signs Vital Signs: Vital Signs - 24 hr 01/30/25 16:14 01/30/25 18:00 01/30/25 19:59 Temperature 98.1 F 98.3 F Pulse Rate 110 H 110 H 114 H Respiratory Rate 18 16 Blood Pressure 92/46 L 102/55 L Pulse Oximetry 95 95 Oxygen Delivery Fraction of Inspired Oxygen 01/30/25 20:00 01/30/25 20:00 01/30/25 20:36 Temperature Pulse Rate 115 H 100 Respiratory Rate 18 Blood Pressure Pulse Oximetry Oxygen Delivery Room Air Fraction of Inspired Oxygen 01/30/25 20:43 01/30/25 20:50 01/30/25 21:39 Temperature Pulse Rate 100 115 H Respiratory Rate 18 Blood Pressure Pulse Oximetry 98 Oxygen Delivery Room Air Fraction of Inspired Oxygen 21 01/30/25 22:00 01/31/25 00:00 01/31/25 00:00 Temperature 97.9 F Pulse Rate 115 H 93 102 H Respiratory Rate 18 Blood Pressure 101/58 L Pulse Oximetry 99 Oxygen Delivery Fraction of Inspired Oxygen 01/31/25 00:00 01/31/25 02:00 01/31/25 02:35 Temperature Pulse Rate 96 100 Respiratory Rate 18 Blood Pressure Pulse Oximetry Oxygen Delivery Room Air Fraction of Inspired Oxygen 01/31/25 02:50 01/31/25 04:00 01/31/25 04:00 Temperature 97.8 F Pulse Rate 100 103 H Respiratory Rate 18 18 Blood Pressure 92/54 L Pulse Oximetry 94 Oxygen Delivery Room Air Fraction of Inspired Oxygen 01/31/25 04:00 01/31/25 06:00 01/31/25 08:00 Temperature Pulse Rate 103 H 103 H Respiratory Rate Blood Pressure Pulse Oximetry Oxygen Delivery Room Air Fraction of Inspired Oxygen 01/31/25 08:00 01/31/25 08:02 01/31/25 09:03 Temperature 98.1 F Pulse Rate 107 H 101 H Respiratory Rate 16 Blood Pressure 92/48 L Pulse Oximetry 95 96 Oxygen Delivery Room Air Fraction of Inspired Oxygen 01/31/25 09:03 01/31/25 09:11 01/31/25 10:00 Temperature Pulse Rate 104 H 104 H 108 H Respiratory Rate 18 18 Blood Pressure Pulse Oximetry Oxygen Delivery Fraction of Inspired Oxygen 01/31/25 11:50 01/31/25 11:56 01/31/25 12:00 Temperature 97.7 F Pulse Rate 102 H 100 Respiratory Rate Blood Pressure 87/52 L Pulse Oximetry 99 Oxygen Delivery Room Air Fraction of Inspired Oxygen 01/31/25 13:54 01/31/25 14:00 01/31/25 14:04 Temperature Pulse Rate 102 H 107 H 103 H Respiratory Rate 18 18 Blood Pressure Pulse Oximetry Oxygen Delivery Fraction of Inspired Oxygen 01/31/25 15:18 Temperature Pulse Rate Respiratory Rate Blood Pressure Pulse Oximetry Oxygen Delivery Room Air Fraction of Inspired Oxygen Intake/Output Intake/Output: Intake & Output 01/28/25 01/29/25 01/30/25 01/31/25 23:59 23:59 23:59 23:59 Intake Total 1890 1600 2092 1165 Output Total 1900 1450 2901 900 Balance -10 150 -809 265 Meds/Results Medications: Active Medications Generic Name Dose Route Start Last Admin Trade Name Freq PRN Reason Stop Dose Admin Acetaminophen 650 mg 01/18/25 20:28 01/24/25 08:23 Acetaminophen Elixir 325 Mg/10.15 Ml Udc FEED TUBE 650 mg Q4H PRN Administration Mild Pain (1-3) or Fever Albuterol/Ipratropium 3 ml 01/29/25 14:00 01/31/25 13:53 Ipratropium 0.5 Mg/Albuterol Sulfate 2.5 Mg Ampul.Neb 3 Ml INHALATION 3 ml Q6HRT SESAR Administration Atorvastatin Calcium 20 mg 01/19/25 18:00 01/30/25 17:24 Atorvastatin 20 Mg Tablet PO 20 mg QPM SESAR Administration Benzocaine/Butamben/Tetracaine HCl 1 spray 01/29/25 18:22 01/29/25 22:41 Benzocaine/Tetracaine [place] (*Sp) 56 Ml Aerosol MUCOUS MEM 1 spray Q4HR PRN Administration pain Benzonatate 200 mg 01/29/25 13:00 01/31/25 14:11 Benzonatate 100 Mg Capsule PO Not Given TID SESAR Dextrose 12.5 gm 01/27/25 05:42 Dextrose 50% 25 Gm/50 Ml Syringe IV PUSH PRN PRN Hypoglycemia Protocol Enoxaparin Sodium 40 mg 01/20/25 09:00 01/31/25 10:00 Enoxaparin 40 Mg/0.4 Ml Syringe SUB-Q 40 mg DAILY SESAR Administration Estradiol 1 mg 01/19/25 09:00 01/31/25 10:00 Estradiol 1 Mg Tablet PO 1 mg DAILY SESAR Administration Glucagon 1 mg 01/27/25 05:42 Glucagon For Inj 1 Mg Vial IM PRN PRN Hypoglycemia Protocol Glucose 15 gm 01/27/25 05:42 Glucose Oral Gel 15 Gm Of Glucse In 37.5 Gm Tube PO PRN PRN Hypoglycemia Protocol Guaifenesin 400 mg 01/29/25 21:00 01/31/25 14:47 Guaifenesin 200 Mg/10 Ml Udc FEED TUBE 400 mg Q4HR SESAR Administration Dextrose 1,000 mls @ 100 mls/hr 01/27/25 05:42 Dextrose 5% 1,000 Ml IVPB PRN PRN Hypoglycemia Protocol Meropenem 1 gm in 100 mls @ 200 mls/hr 01/27/25 18:00 01/31/25 10:30 IVPB Infused Q8H SESAR Infusion Linezolid 600 mg in 300 mls @ 300 mls/hr 01/28/25 14:00 01/31/25 09:59 Zyvox IVPB 300 mls/hr Q12HR SESAR Administration Insulin Aspart 3 - 6 units 01/27/25 06:30 01/31/25 14:11 Insulin Aspart (*Bkc) 100 Units/Ml SUB-Q Not Given ACHS [facility] Protocol Insulin Glargine 10 units 01/25/25 21:00 01/30/25 21:41 Insulin Glargine (*Bkc) 100 Units/Ml SUB-Q 10 units HS SESAR Administration Ipratropium [place] 0.5 mg 01/26/25 07:34 Ipratropium Br 0.02% Inh Soln 0.5 Mg/2.5 Ml Vial INHALATION Q6HRT PRN Wheezing Levalbuterol HCl 0.63 mg 01/26/25 07:34 01/26/25 22:37 Levalbuterol Neb 1.25 Mg/3 Ml INHALATION 0.63 mg Q6HRT PRN Administration Wheezing Metoprolol Tartrate 25 mg 01/26/25 21:45 01/31/25 09:58 Metoprolol Tartrate 25 Mg Tablet PO 25 mg Q12HR SESAR Administration Ondansetron HCl 4 mg 01/19/25 01:20 Ondansetron Inj 4 Mg/2 Ml Vial IV PUSH Q4H PRN Nausea And Vomiting Pantoprazole Sodium 40 mg 01/28/25 09:00 01/31/25 09:58 Pantoprazole 40 Mg Tablet PO 40 mg QAM SESAR Administration Polyethylene Glycol 17 gm 01/24/25 10:15 Polyethylene Glycol 3350 17 Gm Powd.Pack PO QAM PRN Constipation Senna/Docusate Sodium 1 tab 01/24/25 10:20 01/31/25 10:00 Senna/Docusate Sodium Tablet PO Not Given Q12HR SESAR Spironolactone 100 mg 01/19/25 09:00 Spironolactone 50 Mg Tablet PO Q12HR SESAR Radiology Results: ITS Impressions Chest CTA 01/18/25 15:25 IMPRESSION: 1. No pulmonary embolism. 2. Bilateral pneumonia in the lower lobes. Pneumonia in the lingula. Minimal changes of pneumonia in the right middle lobe. Pneumonia in the right upper lobe posteriorly. Follow-up to resolution is advised. Head CT 01/22/25 10:18 Impression: No significant abnormality seen. Cervical Spine MRI 01/27/25 16:12 IMPRESSION: 1. Mild cervical spondylosis. Thoracic Spine MRI 01/27/25 16:25 IMPRESSION: 1. 15 degrees thoracic levoscoliosis with mild spondylosis. 2. Consolidation in the bilateral lower lobes which could represent atelectasis or pneumonia. Lumbar Spine MRI 01/27/25 16:40 IMPRESSION: 1. . 20 degrees lumbar dextroscoliosis with severe spondylosis. Chest CT 01/28/25 15:29 IMPRESSION: Interval progression of multifocal consolidation within the bilateral lung martini, now demonstrating cavitation with intracavitary nodule in the lingula for which the differential diagnosis is broad but includes reactivated tuberculosis, aspergillosis, autoimmune etiology and infection versus septic pulmonary emboli (thought to be less likely secondary to cavitary distribution) Chest X-Ray 01/29/25 11:37 Impression: Bilateral lower lobe consolidation, left worse than right. Findings are suspicious for bilateral pneumonia versus possibly pulmonary edema/atelectasis. Small left pleural effusion and minimal right pleural effusion. Modified Barium Swallow 01/29/25 15:03 IMPRESSION: Pharyngeal dysphagia with laryngeal penetration and aspiration. Please correlate with speech pathologist findings and specific feeding recommendations. Labs Labs: Laboratory Results - last 24 hr 01/30/25 01/30/25 01/31/25 18:42 21:36 00:28 WBC RBC Hgb Hct MCV MCH MCHC RDW Plt Count MPV Immature Gran % (Auto) Neut % (Auto) Lymph % (Auto) [place] % (Auto) Eos % (Auto) Baso % (Auto) Lymph # (Auto) [place] # (Auto) Eos # (Auto) Baso # (Auto) Abs Immat Gran (auto) Absolute Neuts (auto) Absolute Nucleated RBC Nucleated RBC % Sodium Potassium Chloride Carbon Dioxide Anion Gap BUN Creatinine Estim Creat Clear Calc Estimated GFR Glucose POC Capillary Glucose 136 H 150 H 156 H Calcium Phosphorus Magnesium Total Bilirubin AST ALT Alkaline Phosphatase Total Protein Albumin 01/31/25 01/31/25 01/31/25 04:24 06:34 11:27 WBC 7.4 RBC 2.68 L Hgb 8.7 L Hct 27.5 L MCV 102.6 H MCH 32.5 MCHC 31.6 L RDW 15.1 H Plt Count 470 H MPV 9.7 Immature Gran % (Auto) 0.7 H Neut % (Auto) 72.9 Lymph % (Auto) 15.6 L [place] % (Auto) 9.0 H Eos % (Auto) 1.4 Baso % (Auto) 0.4 Lymph # (Auto) 1.15 [place] # (Auto) 0.7 H Eos # (Auto) 0.1 Baso # (Auto) 0.0 Abs Immat Gran (auto) 0.05 H Absolute Neuts (auto) 5.4 Absolute Nucleated RBC 0.000 Nucleated RBC % 0.0 Sodium 137 Potassium 3.8 Chloride 107 Carbon Dioxide 24 Anion Gap 6 BUN 6 L Creatinine 0.45 L Estim Creat Clear Calc 103 Estimated GFR > 60 Glucose 143 H POC Capillary Glucose 136 H 142 H Calcium 8.3 L Phosphorus 3.1 Magnesium 2.2 Total Bilirubin 0.4 AST 33 ALT 31 Alkaline Phosphatase 51 Total Protein 5.9 L Albumin 2.7 L Quality VTE Prophylaxis VTE prophylaxis: pharmacologic ordered Hospitalist MIPS Advance Care Plan I have confirmed that the patient's Advanced Care Plan is present, code status is documented, or surrogate decision maker is listed in patient medical record.: Yes Medication Reconciliation I have utilized all available resources to obtain, update and review the patients current medications (includes all prescriptions, OTC, herbals, cannabis, and nutritional supplements).: Yes
[2025-01-31] MEDS: ATORVASTATIN 20 MG TABLET PO (17:49)
[2025-01-31 18:16] LABS: Glucose Point of Care 115 mg/dl (65-105)
[2025-01-31] MEDS: INSULIN GLARGINE (*BKC) 100 UNITS/ML 10 UNITS SUB-Q (21:51)
[2025-01-31 21:52] LABS: Glucose Point of Care 120 mg/dl (65-105)
[2025-02-01] VITALS (18 sets, daily range): BP systolic 95–103; BP diastolic 50–64; PULSE 55–105; RESP 15–20; TEMP 36.1–36.9; O2SAT 91–98
[2025-02-01 00:19] LABS: Glucose Point of Care 134 mg/dl (65-105)
[2025-02-01] MEDS: guaiFENesin 200 MG/10 ML UDC 400 MG FEED TUBE ×6 (01:36→23:02)
[2025-02-01] MEDS: MEROPENEM 1 GM/NS 100 ML 1 GM/100 ML BAG IVPB ×2 (01:36→09:18)
[2025-02-01] MEDS: IPRATROPIUM 0.5 MG/ALBUTEROL SULFATE 2.5 MG AMPUL.NEB 3 ML INHALATION ×3 (02:56→20:39)
[2025-02-01 04:44] LABS: Mean Corpuscular HGB Conc 31.3 g/dl (32-36); Mean Corpuscular Hemoglobin 32.4 pg (26-34); Mean Corpuscular Volume 103.6 fl (80-100); Mean Platelet Volume 9.4 fl (7.4-10.4); Platelet Count Result 498 k/mm3 (150-375); Red Blood Count 3.09 M/mm3 (4.2-5.4); Red Cell Distribution Width 14.9 % (11.5-14.5)
[2025-02-01 05:06] LABS: Alanine Aminotransferase 32 U/L (6-35); Albumin Level 3.1 g/dL (3.5-5.1); Alkaline Phosphatase 58 U/L (38-126); Anion Gap 6 mmol/L (4-12); Aspartate Amino Transferase 36 U/L (14-36); Bilirubin,Total 0.4 mg/dL (0.2-1.3); Blood Urea Nitrogen 6 mg/dL (7-17); Carbon Dioxide 27 mmol/L (22-30); Chloride 105 mmol/L (98-107); Estimated CRCL calculation 91 ml/min; Estimated Glomerular Filt Rate > 60; Glucose 129 mg/dL (65-110); Potassium 4.8 mmol/L (3.4-5.0); Sodium 138 mmol/L (137-145); Total Protein 6.7 g/dL (6.3-8.2)
--- NOTE | 2025-02-01 07:20 | P.PNIM_ITS ---
Progress Note: A&P Assessment and Plan (1) Septic shock: Code(s): A41.9 - Sepsis, unspecified organism; R65.21 - Severe sepsis with septic shock Status: Acute Assessment and Plan: Patient presented with bilateral lower lobe infiltrates, pneumonia, hypotension overnight requiring central line placement on 01/19, and Levophed -01/20: currently off all pressors -01/18: Blood and sputum cultures growing MSSA -01/20 and 01/23: Repeat blood cultures negative so far -status post doxycycline for 5 days -01/21: started on Cefazolin and DC cefepime, vancomycin (01/21) -patient received a course of Solu-Medrol for 4 doses, wheezing has improved -01/23: Patient again febrile with a T-max of 101.3?, thick yellow colored secretions from the ET tube, white blood cell count trending up. FiO2 requirements going up, Will repeat blood cultures, -01/23: DC cefazolin. Started vancomycin and meropenem (01/23) Fever curve much improved, patient is afebrile, improvement in WBC 1625: Echocardiogram Summary 1. Left ventricular chamber dimension is normal. 2. Left ventricular systolic function is normal, estimated at 60-65. 3. The left ventricular diastolic function is grade I diastolic dysfunction. 4. Right ventricular chamber dimension is mildly enlarged. 5. Right ventricular systolic function is normal. 6. Right atrial chamber dimension is mildly enlarged. 7. There is mild to moderate tricuspid valve regurgitation. (2) Acute hypoxic respiratory failure: Code(s): J96.01 - Acute respiratory failure with hypoxia Status: Acute Assessment and Plan: 01/18: Patient presented the ED with shortness of breath, weakness, diabetic ketoacidosis, pneumonia. Intubated in the ED for airway protection and hypoxia 01/25 extubated -chest x-ray and ABGs reviewed, - CTA chest on admission showed bilateral lower lobe pneumonia -positive for influenza A, On Tamiflu -01/23: bilateral diffuse wheezing, continue bronchodilators and received a course Solu-Medrol -wheezing which improved this morning, Continue supplemental oxygen Incentive spirometry -01/28: CT chest shows cavitary lesions. -continue meropenem -started linezolid 01/15: CTA chest IMPRESSION: 1. No pulmonary embolism. 2. Bilateral pneumonia in the lower lobes. Pneumonia in the lingula. Minimal changes of pneumonia in the right middle lobe. Pneumonia in the right upper lobe posteriorly. Follow-up to resolution is advised. (3) PNA (pneumonia): Code(s): J18.9 - Pneumonia, unspecified organism Status: Acute Assessment and Plan: 01/28/2025 CT shows a cavitary lesions in lung Currently on meropenem and linezolid Order QuantiFERON test Order PEPITO to rule out valve vegetation 01/28: CT Chest:Interval progression of multifocal consolidation within the bilateral lung martini, now demonstrating cavitation with intracavitary nodule in the lingula for which the differential diagnosis is broad but includes reactivated tuberculosis, aspergillosis, autoimmune etiology and infection versus septic pulmonary emboli (thought to be less likely secondary to cavitary distribution) (4) DKA (diabetic ketoacidosis): Code(s): E11.10 - Type 2 diabetes mellitus with ketoacidosis without coma Status: Acute Assessment and Plan: Patient presented with elevated beta hydroxybutyrate, anion gap metabolic acidosis, UA showed ketones, glucose -likely euglycemic diabetic ketoacidosis as patient was still taking Jardiance and metformin -this given 3 L IV fluids since admission, started on insulin infusion per DKA protocol -overnight patient was transition to long-acting insulin Lantus, and sliding scale insulin with Accu-Chek -continue to monitor -blood sugars in stable, continue Accu-Cheks, sliding scale insulin and Lantus (5) Flu: Code(s): J11.1 - Influenza due to unidentified influenza virus with other respiratory manifestations Status: Acute Assessment and Plan: Patient was tested positive for influenza A -status post course of Tamiflu (6) Chronic low blood pressure: Code(s): I95.89 - Other hypotension Status: Acute Assessment and Plan: Patient has chronic low blood pressures, according the daughter systolic blood pressures range in the 80s to 90s -blood pressures remain stable off pressors (7) Sinus tachycardia: Code(s): R00.0 - Tachycardia, unspecified Status: Acute Assessment and Plan: Has a history of chronic sinus tachycardia for which she is on metoprolol at home, -patient's heart rate is in the 100-110 which is her baseline -01/23: Restarted home metoprolol Change bronchodilators p.r.n. Check thyroid function test (8) PCOS (polycystic ovarian syndrome): Code(s): E28.2 - Polycystic ovarian syndrome Status: Acute Assessment and Plan: Hold spironolactone (9) Hyperlipidemia: Code(s): E78.5 - Hyperlipidemia, unspecified Status: Acute Assessment and Plan: continue Atorvastatin (10) Electrolyte imbalance: Code(s): E87.8 - Other disorders of electrolyte and fluid balance, not elsewhere classified Status: Acute Assessment and Plan: Replace potassium (11) Encephalopathy: Code(s): G93.40 - Encephalopathy, unspecified Status: Acute Assessment and Plan: Improving. Part delirium. Will get her up in a chair, PT OT, IS (12) Right foot drop: Code(s): M21.371 - Foot drop, right foot Status: Acute Assessment and Plan: Acute finding Reviewed MRI cervical, thoracic and lumbar Evidence of New cavitary lesions in lung Will repeat MRI lumbar needed Dr. Domingo reviewed with MRI with Radiology to definitely rule out osteomyelitis, diskitis or spinal abscess Consulted neurology and Neurosurgery Evidence of bowel incontinence Consider AFO EMG after Neurology recommendation PT OT (13) Dysphagia: Code(s): R13.10 - Dysphagia, unspecified Status: Acute Assessment and Plan: 0 01/29 patient failed swallow study NPO Insert NG and start nutrition Dietitian on board Plan DVT prophylaxis: Lovenox Stress ulcer prophylaxis: Protonix Nutrition: Swallow study ordered and pending Code Status: Full code Subjective Date/time seen: 02/01/25 07:20 Interval history: Interval history: Patient is a 54-year-old female with no significant past medical history. Went to cruise, from [place] to [facility], returned with fever and cough. Landed [facility] and came to ED directly ,diagnosed with Influenza A and intubated due to respiratory distress and treated in ICU. Later patient treatment was de-escalated to step down unit. During my evaluation there was evident right foot drop. Performed MRI brain spine which did not show any significant finding. Consulted Neurology and Neurosurgery.Neurology believes possible peroneal nerve entrapment causing right foot drop. Patient oxygen requirement was increasing and repeat CT showed cavitary lesions possible post influenza cavitary lesions secondary to MSSA.Dr. Domingo reviewed the MRI of spine with Radiology and there is no evidence of osteomyelitis, diskitis or spinal abscess. To rule out infectious endocarditis cardiology was consulted to undergo PEPITO. Cardiology recommend repeat PEPITO due to possible aspiration. Unfortunately patient failed MBS and currently on NG tube feed. Will repeat sw allow study Saturday. 02/01:Tolerating tube feed. Undergoing speech therapy. Repeat MBS Saturday and possible PEPITO if she pass MBS. Repeat MRI lumbar to r/o infectious cause Review of Systems Review of Systems: All systems reviewed & are unremarkable except as noted in HPI and below (HPI) ROS unobtainable: Yes unobtainable due to endotracheal tube, unobtainable due to medical condition and unobtainable due to mental status Exam Narrative: General: Awake alert in no acute distress HEENT:? Pupils small and reactive bilaterally, sclera is clear, Neck:? Supple, right IJ central line in place Respiratory:? Coarse breath sounds bilaterally, decreased at bases, bilateral wheezing, no tachypnea use of accessory muscles or respiratory distress Cardiac:? Sinus tachycardia, S1-S2 was normal, no murmurs Abdomen:? Soft, nontender, nondistended, hypoactive bowel sounds Extremities:? No edema, palpable pedal pulses Neuro:? Intubated, AO x3 follows simple commands in all extremities carries conversation but is little confused and goes tangential when answering questions Skin:? No lesions noted Psych:? Normal speech and affect Objective Data Vital Signs Vital Signs: Vital Signs - 24 hr 01/31/25 08:00 01/31/25 08:00 01/31/25 08:02 Temperature 98.1 F Pulse Rate 107 H 101 H Respiratory Rate 16 Blood Pressure 92/48 L Pulse Oximetry 95 Oxygen Delivery Room Air Fraction of Inspired Oxygen 01/31/25 09:03 01/31/25 09:03 01/31/25 09:11 Temperature Pulse Rate 104 H 104 H Respiratory Rate 18 18 Blood Pressure Pulse Oximetry 96 Oxygen Delivery Room Air Fraction of Inspired Oxygen 01/31/25 10:00 01/31/25 11:50 01/31/25 11:56 Temperature 97.7 F Pulse Rate 108 H 102 H Respiratory Rate Blood Pressure 87/52 L Pulse Oximetry 99 Oxygen Delivery Room Air Fraction of Inspired Oxygen 01/31/25 12:00 01/31/25 13:54 01/31/25 14:00 Temperature Pulse Rate 100 102 H 107 H Respiratory Rate 18 Blood Pressure Pulse Oximetry Oxygen Delivery Fraction of Inspired Oxygen 01/31/25 14:04 01/31/25 15:18 01/31/25 16:00 Temperature Pulse Rate 103 H 103 H Respiratory Rate 18 Blood Pressure Pulse Oximetry Oxygen Delivery Room Air Fraction of Inspired Oxygen 01/31/25 16:04 01/31/25 18:00 01/31/25 20:00 Temperature 97.9 F Pulse Rate 109 H 104 H Respiratory Rate 16 Blood Pressure 117/63 Pulse Oximetry 96 Oxygen Delivery Room Air Fraction of Inspired Oxygen 01/31/25 20:00 01/31/25 20:15 01/31/25 21:05 Temperature 98.4 F Pulse Rate 104 H 105 H 106 H Respiratory Rate 16 18 Blood Pressure 104/54 L Pulse Oximetry 96 Oxygen Delivery Fraction of Inspired Oxygen 01/31/25 21:05 01/31/25 21:17 01/31/25 22:00 Temperature Pulse Rate 106 H 106 H 105 H Respiratory Rate 18 Blood Pressure Pulse Oximetry 96 Oxygen Delivery Room Air Fraction of Inspired Oxygen 01/31/25 23:51 02/01/25 00:00 02/01/25 00:00 Temperature 98.2 F Pulse Rate 94 93 Respiratory Rate 16 Blood Pressure 105/56 L Pulse Oximetry 97 Oxygen Delivery Room Air Fraction of Inspired Oxygen 02/01/25 02:00 02/01/25 02:35 02/01/25 04:00 Temperature Pulse Rate 95 102 H Respiratory Rate 16 Blood Pressure Pulse Oximetry Oxygen Delivery Room Air Fraction of Inspired Oxygen 02/01/25 04:00 02/01/25 04:40 02/01/25 06:00 Temperature 98.5 F Pulse Rate 101 H 96 94 Respiratory Rate 15 Blood Pressure 95/55 L Pulse Oximetry 95 Oxygen Delivery Fraction of Inspired Oxygen Intake/Output Intake/Output: Intake & Output 01/29/25 01/30/25 01/31/25 02/01/25 23:59 23:59 23:59 23:59 Intake Total 1600 2092 2310 975 Output Total 1450 2901 5011 550 Balance 432 -[phone] -[phone] Meds/Results Medications: Active Medications Generic Name Dose Route Start Last Admin Trade Name Freq PRN Reason Stop Dose Admin Acetaminophen 650 mg 01/18/25 20:28 01/24/25 08:23 Acetaminophen Elixir 325 Mg/10.15 Ml Udc FEED TUBE 650 mg Q4H PRN Administration Mild Pain (1-3) or Fever Albuterol/Ipratropium 3 ml 01/29/25 14:00 02/01/25 02:56 Ipratropium 0.5 Mg/Albuterol Sulfate 2.5 Mg Ampul.Neb 3 Ml INHALATION 3 ml Q6HRT SESAR Administration Atorvastatin Calcium 20 mg 01/19/25 18:00 01/31/25 17:49 Atorvastatin 20 Mg Tablet PO 20 mg QPM SESAR Administration Benzocaine/Butamben/Tetracaine HCl 1 spray 01/29/25 18:22 01/29/25 22:41 Benzocaine/Tetracaine [place] (*Sp) 56 Ml Aerosol MUCOUS MEM 1 spray Q4HR PRN Administration pain Benzonatate 200 mg 01/29/25 13:00 01/31/25 17:46 Benzonatate 100 Mg Capsule PO Not Given TID SESAR Dextrose 12.5 gm 01/27/25 05:42 Dextrose 50% 25 Gm/50 Ml Syringe IV PUSH PRN PRN Hypoglycemia Protocol Enoxaparin Sodium 40 mg 01/20/25 09:00 01/31/25 10:00 Enoxaparin 40 Mg/0.4 Ml Syringe SUB-Q 40 mg DAILY SESAR Administration Estradiol 1 mg 01/19/25 09:00 01/31/25 10:00 Estradiol 1 Mg Tablet PO 1 mg DAILY SESAR Administration Glucagon 1 mg 01/27/25 05:42 Glucagon For Inj 1 Mg Vial IM PRN PRN Hypoglycemia Protocol Glucose 15 gm 01/27/25 05:42 Glucose Oral Gel 15 Gm Of Glucse In 37.5 Gm Tube PO PRN PRN Hypoglycemia Protocol Guaifenesin 400 mg 01/29/25 21:00 02/01/25 05:52 Guaifenesin 200 Mg/10 Ml Udc FEED TUBE 400 mg Q4HR SESAR Administration Dextrose 1,000 mls @ 100 mls/hr 01/27/25 05:42 Dextrose 5% 1,000 Ml IVPB PRN PRN Hypoglycemia Protocol Meropenem 1 gm in 100 mls @ 200 mls/hr 01/27/25 18:00 02/01/25 01:36 IVPB 200 mls/hr Q8H SESAR Administration Linezolid 600 mg in 300 mls @ 300 mls/hr 01/28/25 14:00 01/31/25 21:22 Zyvox IVPB 300 mls/hr Q12HR SESAR Administration Insulin Aspart 3 - 6 units 01/27/25 06:30 01/31/25 21:52 Insulin Aspart (*Bkc) 100 Units/Ml SUB-Q Not Given ACHS [facility] Protocol Insulin Glargine 10 units 01/25/25 21:00 01/31/25 21:51 Insulin Glargine (*Bkc) 100 Units/Ml SUB-Q 10 units HS SESAR Administration Ipratropium [place] 0.5 mg 01/26/25 07:34 Ipratropium Br 0.02% Inh Soln 0.5 Mg/2.5 Ml Vial INHALATION Q6HRT PRN Wheezing Levalbuterol HCl 0.63 mg 01/26/25 07:34 01/26/25 22:37 Levalbuterol Neb 1.25 Mg/3 Ml INHALATION 0.63 mg Q6HRT PRN Administration Wheezing Metoprolol Tartrate 25 mg 01/26/25 21:45 01/31/25 21:17 Metoprolol Tartrate 25 Mg Tablet PO 25 mg Q12HR [facility] Administration Ondansetron HCl 4 mg 01/19/25 01:20 Ondansetron Inj 4 Mg/2 Ml Vial IV PUSH Q4H PRN Nausea And Vomiting Pantoprazole Sodium 40 mg 01/28/25 09:00 01/31/25 09:58 Pantoprazole 40 Mg Tablet PO 40 mg QAM SESAR Administration Polyethylene Glycol 17 gm 01/24/25 10:15 Polyethylene Glycol 3350 17 Gm Powd.Pack PO QAM PRN Constipation Senna/Docusate Sodium 1 tab 01/24/25 10:20 02/01/25 00:14 Senna/Docusate Sodium Tablet PO Not Given Q12HR [facility] Spironolactone 100 mg 01/19/25 09:00 Spironolactone 50 Mg Tablet PO Q12HR [facility] Radiology Results: ITS Impressions Chest CTA 01/18/25 15:25 IMPRESSION: 1. No pulmonary embolism. 2. Bilateral pneumonia in the lower lobes. Pneumonia in the lingula. Minimal changes of pneumonia in the right middle lobe. Pneumonia in the right upper lobe posteriorly. Follow-up to resolution is advised. Head CT 01/22/25 10:18 Impression: No significant abnormality seen. Cervical Spine MRI 01/27/25 16:12 IMPRESSION: 1. Mild cervical spondylosis. Thoracic Spine MRI 01/27/25 16:25 IMPRESSION: 1. 15 degrees thoracic levoscoliosis with mild spondylosis. 2. Consolidation in the bilateral lower lobes which could represent atelectasis or pneumonia. Lumbar Spine MRI 01/27/25 16:40 IMPRESSION: 1. . 20 degrees lumbar dextroscoliosis with severe spondylosis. Chest CT 01/28/25 15:29 IMPRESSION: Interval progression of multifocal consolidation within the bilateral lung martini, now demonstrating cavitation with intracavitary nodule in the lingula for which the differential diagnosis is broad but includes reactivated tuberculosis, aspergillosis, autoimmune etiology and infection versus septic pulmonary emboli (thought to be less likely secondary to cavitary distribution) Chest X-Ray 01/29/25 11:37 Impression: Bilateral lower lobe consolidation, left worse than right. Findings are s uspicious for bilateral pneumonia versus possibly pulmonary edema/atelectasis. Small left pleural effusion and minimal right pleural effusion. Modified Barium Swallow 01/29/25 15:03 IMPRESSION: Pharyngeal dysphagia with laryngeal penetration and aspiration. Please correlate with speech pathologist findings and specific feeding recommendations. Labs Labs: Laboratory Results - last 24 hr 01/31/25 01/31/25 01/31/25 11:27 18:14 21:27 WBC RBC Hgb Hct MCV MCH MCHC RDW Plt Count MPV Sodium Potassium Chloride Carbon Dioxide Anion Gap BUN Creatinine Estim Creat Clear Calc Estimated GFR Glucose POC Capillary Glucose 142 H 115 H 120 H Calcium Total Bilirubin AST ALT Alkaline Phosphatase Total Protein Albumin 02/01/25 02/01/25 00:16 04:36 WBC 8.0 RBC 3.09 L Hgb 10.0 L Hct 32.0 L MCV 103.6 H MCH 32.4 MCHC 31.3 L RDW 14.9 H Plt Count 498 H MPV 9.4 Sodium 138 Potassium 4.8 Chloride 105 Carbon Dioxide 27 Anion Gap 6 BUN 6 L Creatinine 0.52 L Estim Creat Clear Calc 91 Estimated GFR > 60 Glucose 129 H POC Capillary Glucose 134 H Calcium 9.0 Total Bilirubin 0.4 AST 36 ALT 32 Alkaline Phosphatase 58 Total Protein 6.7 Albumin 3.1 L Quality VTE Prophylaxis VTE prophylaxis: pharmacologic ordered Hospitalist MIPS Advance Care Plan I have confirmed that the patient's Advanced Care Plan is present, code status is documented, or surrogate decision maker is listed in patient medical record.: Yes Medication Reconciliation I have utilized all available resources to obtain, update and review the patients current medications (includes all prescriptions, OTC, herbals, cannabis, and nutritional supplements).: Yes
[2025-02-01 09:05] LABS: CRP. 3.2 mg/dL (<1.0)
[2025-02-01] MEDS: PANTOPRAZOLE 40 MG TABLET PO (09:19)
[2025-02-01] MEDS: METOPROLOL TARTRATE 25 MG TABLET PO ×2 (09:19→23:02)
[2025-02-01] MEDS: estradioL 1 MG TABLET PO (09:20)
[2025-02-01] MEDS: LINEZOLID 600 MG/300 ML 600 MG/300 ML SOLN 300 MG IVPB (09:20)
[2025-02-01] MEDS: ENOXAPARIN 40 MG/0.4 ML SYRINGE SUB-Q (09:36)
[2025-02-01 10:07] LABS: Glucose Point of Care 134 mg/dl (65-105)
[2025-02-01 10:10] LABS: Procalcitonin. 0.1 ng/mL
[2025-02-01] MEDS: ACETAMINOPHEN/ASPIRIN/CAFFEINE 250-250-65 MG TABLET 1 TABLET PO (11:48)
[2025-02-01 12:03] LABS: Glucose Point of Care 154 mg/dl (65-105)
--- NOTE | 2025-02-01 12:12 | PM.PNPUL ---
Progress Note: A&P Assessment and Plan (1) Influenza A: Code(s): J10.1 - Influenza due to other identified influenza virus with other respiratory manifestations Status: Acute Assessment and Plan: Patient presented on 01/18/2025 with influenza a pneumonia, Staph aureus bacteremia and pneumonia. Patient was treated with Tamiflu on 01/18, 01/21 and 01/22. 01/28/25: Plan: would not entertain any additional Tamiflu at this time. 01/30/25; she has completed Tamiflu. (2) PNA (pneumonia): Code(s): J18.9 - Pneumonia, unspecified organism Status: Acute Assessment and Plan: Patient with no underlying lung disease. She has an unspecified autoimmune disease takes prednisone 1 time a year last use was 3 years ago. History of recurrent bronchitis but denies asthma or COPD. Blood cultures grew out Staph aureus sensitive to everything except tetracycline and sputum culture on 01/19/2025 grew out Staph aureus sensitive to everything except tetracycline. started on vancomycin and cefepime and doxycycline on 01/18 2025. Patient was switched to Ancef on 01/21/2025. Repeat blood cultures on 01/20/2025 negative x2. patient became afebrile on 01/23/2025. patient treated with Solu-Medrol 01/23 and 01/24. She had increased oxygen requirements on 01/25/2014 and was escalated from Ancef to meropenem and vancomycin (01/23 through 01/26). Currently the patient is on meropenem only (01/23 started). Patient had a CT scan of the chest that shows a cavity in the lingula, right middle lobe and possibly cavities in the consolidated area of the right lower lobe. There dense consolidations in the bases bilaterally and diffuse patchy infiltrates throughout the lungs. Linezolid added 01/28/25. Plan: patient with post influenza staph aureus pneumonia and bacteremia. she has a development of new cavities in her lungs bilaterally. I will send a QuantiFERON gold. I have discussed with ID pharmacy and patient should have been adequately covered for her Staph aureus since 01/18/2025, day 10. is unclear when these cavities developed after the CT scan on 01/18/2025. Will perform PEPITO to exclude endocarditis. I reviewed the MRI of the spine with Radiology and there is no evidence of osteomyelitis, diskitis or spinal abscess. Will continue meropenem and start linezolid today. CT scan of the chest with dense consolidation in the bases and new lingula and right middle lobe cavities. 01/29/2025: Overall the patient denies any rest shortness of breath. She does desaturate when she walks to the chair. She has severe coughing paroxysms and sometimes coughs for 45 minutes that causes chest pain. She says occasionally she hears herself wheezing. Currently she is on 2 L nasal cannula saturations 93%. She has been afebrile since 01/23. Her white blood cell count is 11.3, creatinine is 0.51. Her BNP is 224. Her procalcitonin has improved from 3.6 on 01/21/2025 to 0.1 today. Her CRP has improved from 17.4 on 01/24/2025 to 4.8 today. Plan: patient is afebrile, improved procalcitonin, improved leukocytosis, improved CRP. Patient should have been adequately covered for her Staph aureus since 01/18/2025, day 11. Continue meropenem, started 01/23, day 7 and linezolid started 01/28, day 2. Patient to have repeat swallow study and QuantiFERON gold result prior to PEPITO to exclude endocarditis. goal saturation 90-94%, wean as tolerated. Discussed with family in the room, Dr. Geronimo. will follow with you. Later in day failed swallow study and dobbhoff placed. 01/30/25; she is on room air, afebrile, coughing less intensely with green secretions. I added Cornet valve today to help with clearance of secretions. QuantiFERON gold is not back yet. White blood cell count is now normal 8.9. No fever. Continue meropenem day 8 started 14; continue linezolid day 3 started 01/28. She may need a PICC line to complete antibiotics for cavitary pneumonia. 01/31/25; WBC lower 7.4, no fever; improved airway clearance with Cornet valve, afebrile. Continue meropenem day 9 started 01/23; continue linezolid day 4 started 01/28. 02/01/2025: Patient tells me she is feeling better each day. She has no rest shortness of breath. Minimal exertional shortness of breath. Cough is slowly in better with green to yellow phlegm. No hemoptysis. She is afebrile. Currently she is on room air with saturations 94-95%. White blood cell count 8.0, creatinine 0.52, procalcitonin remains low at 0.1. CRP has improved from 4.8 on 01/29/2025 to a value of 3.2 today. Chest x-ray shows minimal improvement left lower lobe, same right lower lobe infiltrate. She is positive 1.1 L since admission and her weight today is 64 kg. Plan: Patient is improving,patient is afebrile, low procalcitonin, no leukocytosis, improved CRP, chest x-ray with bibasilar infiltrates with improved aeration in the left base.. Patient should have been adequately covered for her Staph aureus since 01/18/2025, day 15. Status post meropenem, started 01/23, day 10 and linezolid started 01/28, day 5. will change the patient to Augmentin 875 per tube t.i.d. starting today. Patient is perform a bedside swallowing exercises and to have repeat swallow study 02/02and QuantiFERON gold result prior to PEPITO to exclude endocarditis. goal saturation 90-94%, wean as tolerated. Discussed with family in the room, Dr. Geronimo. will follow with you. Subjective Date/time seen: 02/01/25 12:12 Interval history: 01/27/2025: This is a new pulmonary consult for influenza a pneumonia and hypoxemia. 54-year-old with a history of diabetes, polycystic ovarian syndrome, Raynaud's, Sjogren's, spinal stenosis, DJD, mouth sores and an unspecified autoimmune disease. Patient seen a head machinist from [place] in an out reach Clinic in [facility] and was diagnosed with a nonspecific autoimmune disease. She takes prednisone bursts for about a week every year. Her last use was approximately 3 years ago. Patient denies any history of childhood asthma, COPD but has had recurrent bronchitis episodes approximately once a year the last of which was 07/2020 for which she took antibiotics for 1 week and made a full recovery. Patient was at her baseline approximately 3 weeks ago and says she can walk 2 to 2-1/2 miles over 45-60 minutes with no respiratory limitations. She has no respiratory limitations in her activities of daily living. She is a never smoker and has no occupational exposures. Patient presented to the hospital on 01/18/2025 with shortness of breath, weakness and fatigue after she returned from a cruise [place] [facility] and [place] on 01/08/2025. On 01/14 the patient developed a cough with worsening shortness of breath. She lost her appetite and stopped eating or drinking on 01/16/2025. She developed shortness of breath on 01/18/2025 but did not want to go to a hospital in [place] so she flew home and family brought her straight from the airport to [facility]. She was tachypneic and extremely weak and was intubated. White blood cell count 10.3, 23% bands, patient was started on cefepime to, doxycycline and vancomycin for septic shock. She was started on Tamiflu in the emergency department. Patient received Tamiflu on 01/18, 01/21 and 01/22. Blood cultures grew out Staph aureus sensitive to everything except tetracycline and sputum culture on 01/19/2025 grew out Staph aureus sensitive to everything except tetracycline. Patient was switched to Ancef. Repeat blood cultures on 01/21/2020 5- x2. patient became afebrile on 01/23/2025. She had increased oxygen requirements on 01/25/2014 and was escalated from Ancef to meropenem and vancomycin (01/23 through 01/26). Currently the patient is on meropenem only (01/23 started). Patient had a CT scan of the chest that shows a cavity in the lingula, right middle lobe and possibly cavities in the consolidated area of the right lower lobe. There dense consolidations in the bases bilaterally and diffuse patchy infiltrates throughout the lungs. Linezolid added 01/28/25. 01/28/2025: Patient complains of a dry cough that has persisted since she was extubated on 01/25. She denies fever but feels warm with no chills or rigors. She has no rest shortness of breath. Currently she is on 3 L with saturations 92-96%. She can do incentive spirometry and 1000 mL but this does provoke a cough. Her last fever was 614 at 6:38 a.m.. White blood cell count 16.4, creatinine 0.49, last CRP was 17.4 decreased from 45 on admission. Last procalcitonin is 3.6, decreased from a peak of 12.5 on 01/19/2025. Patient developed a right foot drop has a history of chronic back pain. CT scan of the chest with dense consolidation in the bases and new lingula and right middle lobe cavities. 01/28/25 01/29/2025: Overall the patient denies any rest shortness of breath. She does desaturate when she walks to the chair. She has severe coughing paroxysms and sometimes coughs for 45 minutes that causes chest pain. She says occasionally she hears herself wheezing. Currently she is on 2 L nasal cannula saturations 93%. She has been afebrile since 01/23. Her white blood cell count is 11.3, creatinine is 0.51. Her BNP is 224. Her procalcitonin has improved from 3.6 on 01/21/2025 to 0.1 today. Her CRP has improved from 17.4 on 01/24/2025 to 4.8 today. 01/30/2025; in-patient hospital visit; Patient was seen January 30 at 18:30. and a daughter are present. She is on room air since yesterday, dropped a little overnight, sat in the chair from 9 am until 4 pm today. She is having green secretions, wants to try Cornet valve. She is using Incentive spirometer. Dobbhoff is in place. She is feeling better, cough is less intense. White blood cell count is normal today 8.9 down from 11.3. 01/31/2025; Daughters are present. She was up in a chair for several hours. When walking to bathroom, had increased cough and sputum. The Cornet valve is helping clear green secretions, and she is using IS, gets this ti 1.5 L, excellent. She remains on room air. Tolerating Dobbhoff tube feeds. Will have swallow study repeated soon. WBC lower 7.4. 02/01/2025: Patient tells me she is feeling better each day. She has no rest shortness of breath. Minimal exertional shortness of breath. Cough is slowly in better with green to yellow phlegm. No hemoptysis. She is afebrile. Currently she is on room air with saturations 94-95%. White blood cell count 8.0, creatinine 0.52, procalcitonin remains low at 0.1. CRP has improved from 4.8 on 01/29/2025 to a value of 3.2 today. Chest x-ray shows minimal improvement left lower lobe, same right lower lobe infiltrate. She is positive 1.1 L since admission and her weight today is 64 kg. DATA: 01/28/25: CLINICAL INDICATION: Shortness of breath, pneumonia suspected clinically COMPARISON: 01/18/2025 Reference is made to multiple plain film evaluations of the chest dated 01/26/2025 and dating back to 01/20/2025. TECHNIQUE: Multiple contiguous axial images of the chest was performed without the administration of intravenous contrast. This CT examination was performed utilizing dose reduction techniques. DLP: 124 mGy-cm FINDINGS/OBSERVATIONS: Interval extubation and removal of the orogastric tube with compared with previous study. No LUNG: Bibasilar consolidation, right greater than left. Patchy groundglass opacification within the bilateral pulmonary tomi, right greater than left. Cavitation is now identified within the lingula, with an intracavitary nodule. Cavitation is also now identified within the right middle lobe. Cavitation is an interval change from previous examination. HEART: The heart is of normal size, without pericardial effusion. MEDIASTINUM: Limited evaluation without intravenous contrast. SOFT TISSUES OF THE CHEST: Unremarkable. BONES OF THE CHEST: No acute fracture. No lytic or blastic lesions are identified. UPPER ABDOMEN: Gaseous distention of the stomach. The gallbladder is surgically absent. IMPRESSION: Interval progression of multifocal consolidation within the bilateral lung martini, now demonstrating cavitation with intracavitary nodule in the lingula for which the differential diagnosis is broad but includes reactivated tuberculosis, aspergillosis, autoimmune etiology and infection versus septic pulmonary emboli (thought to be less likely secondary to cavitary distribution) 01/19/2025: Echo Summary 1. Left ventricular chamber dimension is normal. 2. Left ventricular systolic function is normal, estimated at 60-65. 3. The left ventricular diastolic function is grade I diastolic dysfunction. 4. Right ventricular chamber dimension is mildly enlarged. 5. Right ventricular systolic function is normal. 6. Right atrial chamber dimension is mildly enlarged. 7. There is mild to moderate tricuspid valve regurgitation. Right Ventricle Right ventricular chamber dimension is mildly enlarged. Right ventricular systolic function is normal. Left Atria Left atrial chamber dimension is normal. Right Atria Right atrial chamber dimension is mildly enlarged. Atrial Septum Intact interatrial septum visualized by color flow imaging. RVSP 64. 01/27/2025 cervical, thoracic, lumbar spine MRI: IMPRESSION: 1. . 20 degrees lumbar dextroscoliosis with severe spondylosis. IMPRESSION: 1. 15 degrees thoracic levoscoliosis with mild spondylosis. 2. Consolidation in the bilateral lower lobes which could represent atelectasis or pneumonia. IMPRESSION: 1. Mild cervical spondylosis. 01/18/2025: CTA chest PE protocol Ordering provider: Maxi Macedo MD History: 54 years Female with . sob . Comparison: None. Findings: Endotracheal tube and nasogastric tube are noted. PULMONARY ARTERIES: No pulmonary embolus. VISUALIZED THORACIC INLET: Normal. MEDIASTINUM: Aorta/coronary arteries: Mild atheromatous disease. Heart/other: The heart is not enlarged. Lymph nodes: No mediastinal or hilar adenopathy. Small prevascular lymph nodes are noted. LUNGS: Bilateral lower lobe and lingular pneumonia is noted. Pneumonia in the right upper lobe posteriorly is also seen. Minimal consolidation also seen in the middle lobe. No pulmonary nodules or masses. No effusions. No pneumothorax. VISUALIZED UPPER ABDOMEN: Fat infiltration of the liver. Status post cholecystectomy. Otherwise, the visualized upper abdomen is normal. MUSCULOSKELETAL: Soft tissues: The superficial soft tissues are normal. Bones: Age appropriate degenerative changes of the spine. IMPRESSION: 1. No pulmonary embolism. 2. Bilateral pneumonia in the lower lobes. Pneumonia in the lingula. Minimal changes of pneumonia in the right middle lobe. Pneumonia in the right upper lobe posteriorly. Follow-up to resolution is advised. Review of Systems Review of Systems: All systems reviewed & are unremarkable except as noted in HPI and below Constitutional: Constitutional: Reports no additional constitutional complaints Eyes: Eyes: Reports no additional eye complaints ENT: Reports system reviewed and no additional complaints, except as documented Cardiovascular: Cardiovascular: Reports no additional cardiovascular complaints Respiratory: Respiratory: Reports no additional respiratory complaints Gastrointestinal: Gastrointestinal: Reports no additional gastrointestinal complaints Musculoskeletal: Musculoskeletal: Reports no additional musculoskeletal complaints Neurologic: Reports system reviewed and no additional complaints, except as documented Psychiatric: Psychiatric: Reports no additional psychiatric complaints Endocrine: Endocrine: Reports no additional endocrine complaints Hematologic/Lymphatic: Hematologic/Lymphatic: Reports no additional hematologic/lymphatic complaints Allergic/Immunologic: Allergic/Immunologic: Reports no additional allergic/immunologic complaints Exam Const: General: cooperative, healthy appearing and comfortable Orientation/consciousness: oriented to person, oriented to place and oriented to time Other: no respiratory distress on Room Air HENMT: Head: normal to inspection Ears: hearing grossly normal bilaterally Eyes: General: appearance normal, both eyes and all related structures Neck: Neck: normal visual inspection Chest: Chest palpation & inspection: normal inspection of the chest Resp: Effort & Inspection: normal respiratory effort and able to speak in complete sentences Auscultation: crackles, no rales, no rhonchi, no wheezes and lung sounds not diminished Other: Few diffuse crackles, decreased breath sounds in the bases. No wheezes. Cardio: Jugular venous distension: no JVD GI: Inspection: normal to inspection Skin: General skin exam: normal color Neuro: General: oriented to person, oriented to place and oriented to time Extrem: General: normal to inspection Other: Inability to raise right foot. Loss of sensation top of foot. She has a soft boot on the right foot to support her footdrop. Psych: Appearance: grossly normal Objective Data Vital Signs Vital Signs: Vital Signs - 24 hr 01/31/25 13:54 01/31/25 14:00 01/31/25 14:04 Temperature Pulse Rate 102 H 107 H 103 H Respiratory Rate 18 18 Blood Pressure Pulse Oximetry Oxygen Delivery Fraction of Inspired Oxygen 01/31/25 15:18 01/31/25 16:00 01/31/25 16:04 Temperature 36.6 C Pulse Rate 103 H 109 H Respiratory Rate 16 Blood Pressure 117/63 Pulse Oximetry 96 Oxygen Delivery Room Air Fraction of Inspired Oxygen 01/31/25 18:00 01/31/25 20:00 01/31/25 20:00 Temperature Pulse Rate 104 H 104 H Respiratory Rate Blood Pressure Pulse Oximetry Oxygen Delivery Room Air Fraction of Inspired Oxygen 01/31/25 20:15 01/31/25 21:05 01/31/25 21:05 Temperature 36.9 C Pulse Rate 105 H 106 H 106 H Respiratory Rate 16 18 18 Blood Pressure 104/54 L Pulse Oximetry 96 96 Oxygen Delivery Room Air Fraction of Inspired Oxygen 21 01/31/25 21:17 01/31/25 22:00 01/31/25 23:51 Temperature 36.8 C Pulse Rate 106 H 105 H 94 Respiratory Rate 16 Blood Pressure 105/56 L Pulse Oximetry 97 Oxygen Delivery Fraction of Inspired Oxygen 02/01/25 00:00 02/01/25 00:00 02/01/25 02:00 Temperature Pulse Rate 93 95 Respiratory Rate Blood Pressure Pulse Oximetry Oxygen Delivery Room Air Fraction of Inspired Oxygen 02/01/25 02:35 02/01/25 04:00 02/01/25 04:00 Temperature Pulse Rate 102 H 101 H Respiratory Rate 16 Blood Pressure Pulse Oximetry Oxygen Delivery Room Air Fraction of Inspired Oxygen 02/01/25 04:40 02/01/25 06:00 02/01/25 07:46 Temperature 36.9 C Pulse Rate 96 94 Respiratory Rate 15 Blood Pressure 95/55 L Pulse Oximetry 95 98 Oxygen Delivery Room Air Fraction of Inspired Oxygen 02/01/25 07:46 02/01/25 07:52 02/01/25 08:00 Temperature 36.7 C Pulse Rate 94 98 102 H Respiratory Rate 18 18 18 Blood Pressure 97/50 L Pulse Oximetry 91 Oxygen Delivery Fraction of Inspired Oxygen 02/01/25 08:00 02/01/25 08:00 02/01/25 09:19 Temperature Pulse Rate 104 H 102 H Respiratory Rate Blood Pressure Pulse Oximetry Oxygen Delivery Room Air Fraction of Inspired Oxygen 02/01/25 10:00 02/01/25 12:00 Temperature Pulse Rate 105 H 99 Respiratory Rate Blood Pressure Pulse Oximetry Oxygen Delivery Fraction of Inspired Oxygen Intake/Output Intake/Output: Intake & Output 01/29/25 01/30/25 01/31/25 02/01/25 23:59 23:59 23:59 23:59 Intake Total 1600 2092 2610 1075 Output Total 1450 2901 3151 1350 Balance 150 -809 -541 -275 Meds/Results Medications: Active Medications Generic Name Dose Route Start Last Admin Trade Name Freq PRN Reason Stop Dose Admin Acetaminophen 650 mg 01/18/25 20:28 01/24/25 08:23 Acetaminophen Elixir 325 Mg/10.15 Ml Udc FEED TUBE 650 mg Q4H PRN Administration Mild Pain (1-3) or Fever Albuterol/Ipratropium 3 ml 01/29/25 14:00 02/01/25 07:46 Ipratropium 0.5 Mg/Albuterol Sulfate 2.5 Mg Ampul.Neb 3 Ml INHALATION 3 ml Q6HRT SESAR Administration Amoxicillin/Clavulanate Potassium 875 mg 02/01/25 14:00 Amoxicillin/Clavulanate K Susp 400-57 Mg/5 Ml 5 Ml Ud FEED TUBE Q8HR [facility] Atorvastatin Calcium 20 mg 01/19/25 18:00 01/31/25 17:49 Atorvastatin 20 Mg Tablet PO 20 mg QPM SESAR Administration Benzocaine/Butamben/Tetracaine HCl 1 spray 01/29/25 18:22 01/29/25 22:41 Benzocaine/Tetracaine Sapphire (*Sp) 56 Ml Aerosol MUCOUS MEM 1 spray Q4HR PRN Administration pain Benzonatate 200 mg 01/29/25 13:00 02/01/25 09:18 Benzonatate 100 Mg Capsule PO Not Given TID SESAR Dextrose 12.5 gm 01/27/25 05:42 Dextrose 50% 25 Gm/50 Ml Syringe IV PUSH PRN PRN Hypoglycemia Protocol Enoxaparin Sodium 40 mg 01/20/25 09:00 02/01/25 09:36 Enoxaparin 40 Mg/0.4 Ml Syringe SUB-Q 40 mg DAILY SESAR Administration Estradiol 1 mg 01/19/25 09:00 02/01/25 09:20 Estradiol 1 Mg Tablet PO 1 mg DAILY SESAR Administration Glucagon 1 mg 01/27/25 05:42 Glucagon For Inj 1 Mg Vial IM PRN PRN Hypoglycemia Protocol Glucose 15 gm 01/27/25 05:42 Glucose Oral Gel 15 Gm Of Glucse In 37.5 Gm Tube PO PRN PRN Hypoglycemia Protocol Guaifenesin 400 mg 01/29/25 21:00 02/01/25 09:36 Guaifenesin 200 Mg/10 Ml Udc FEED TUBE 400 mg Q4HR SESAR Administration Dextrose 1,000 mls @ 100 mls/hr 01/27/25 05:42 Dextrose 5% 1,000 Ml IVPB PRN PRN Hypoglycemia Protocol Insulin Aspart 3 - 6 units 01/27/25 06:30 02/01/25 10:10 Insulin Aspart (*Bkc) 100 Units/Ml SUB-Q Not Given ACHS SESAR Protocol Insulin Glargine 10 units 01/25/25 21:00 01/31/25 21:51 Insulin Glargine (*Bkc) 100 Units/Ml SUB-Q 10 units HS SESAR Administration Ipratropium [place] 0.5 mg 01/26/25 07:34 Ipratropium Br 0.02% Inh Soln 0.5 Mg/2.5 Ml Vial INHALATION Q6HRT PRN Wheezing Levalbuterol HCl 0.63 mg 01/26/25 07:34 01/26/25 22:37 Levalbuterol Neb 1.25 Mg/3 Ml INHALATION 0.63 mg Q6HRT PRN Administration Wheezing Metoprolol Tartrate 25 mg 01/26/25 21:45 02/01/25 09:19 Metoprolol Tartrate 25 Mg Tablet PO 25 mg Q12HR SESAR Administration Ondansetron HCl 4 mg 01/19/25 01:20 Ondansetron Inj 4 Mg/2 Ml Vial IV PUSH Q4H PRN Nausea And Vomiting Pantoprazole Sodium 40 mg 01/28/25 09:00 02/01/25 09:19 Pantoprazole 40 Mg Tablet PO 40 mg QAM SESAR Administration Polyethylene Glycol 17 gm 01/24/25 10:15 Polyethylene Glycol 3350 17 Gm Powd.Pack PO QAM PRN Constipation Senna/Docusate Sodium 1 tab 01/24/25 10:20 02/01/25 09:19 Senna/Docusate Sodium Tablet PO Not Given Q12HR SESAR Spironolactone 100 mg 01/19/25 09:00 Spironolactone 50 Mg Tablet PO Q12HR SESAR Radiology Results: ITS Impressions Chest CTA 01/18/25 15:25 IMPRESSION: 1. No pulmonary embolism. 2. Bilateral pneumonia in the lower lobes. Pneumonia in the lingula. Minimal changes of pneumonia in the right middle lobe. Pneumonia in the right upper lobe posteriorly. Follow-up to resolution is advised. Head CT 01/22/25 10:18 Impression: No significant abnormality seen. Cervical Spine MRI 01/27/25 16:12 IMPRESSION: 1. Mild cervical spondylosis. Thoracic Spine MRI 01/27/25 16:25 IMPRESSION: 1. 15 degrees thoracic levoscoliosis with mild spondylosis. 2. Consolidation in the bilateral lower lobes which could represent atelectasis or pneumonia. Lumbar Spine MRI 01/27/25 16:40 IMPRESSION: 1. . 20 degrees lumbar dextroscoliosis with severe spondylosis. Chest CT 01/28/25 15:29 IMPRESSION: Interval progression of multifocal consolidation within the bilateral lung martini, now demonstrating cavitation with intracavitary nodule in the lingula for which the differential diagnosis is broad but includes reactivated tuberculosis, aspergillosis, autoimmune etiology and infection versus septic pulmonary emboli (thought to be less likely secondary to cavitary distribution) Modified Barium Swallow 01/29/25 15:03 IMPRESSION: Pharyngeal dysphagia with laryngeal penetration and aspiration. Please correlate with speech pathologist findings and specific feeding recommendations. Chest X-Ray 02/01/25 09:16 IMPRESSION: Bibasilar and perihilar pneumonia. No significant change from previous examination. Labs Labs: Laboratory Results - last 24 hr 01/31/25 01/31/25 02/01/25 18:14 21:27 00:16 WBC RBC Hgb Hct MCV MCH MCHC RDW Plt Count MPV Sodium Potassium Chloride Carbon Dioxide Anion Gap BUN Creatinine Estim Creat Clear Calc Estimated GFR Glucose POC Capillary Glucose 115 H 120 H 134 H Calcium Total Bilirubin AST ALT Alkaline Phosphatase C-Reactive Protein Total Protein Albumin Procalcitonin 02/01/25 02/01/25 02/01/25 04:31 04:36 10:05 WBC 8.0 RBC 3.09 L Hgb 10.0 L Hct 32.0 L MCV 103.6 H MCH 32.4 MCHC 31.3 L RDW 14.9 H Plt Count 498 H MPV 9.4 Sodium 138 Potassium 4.8 Chloride 105 Carbon Dioxide 27 Anion Gap 6 BUN 6 L Creatinine 0.52 L Estim Creat Clear Calc 91 Estimated GFR > 60 Glucose 129 H POC Capillary Glucose 134 H Calcium 9.0 Total Bilirubin 0.4 AST 36 ALT 32 Alkaline Phosphatase 58 C-Reactive Protein 3.2 H Total Protein 6.7 Albumin 3.1 L Procalcitonin 0.1 02/01/25 11:56 WBC RBC Hgb Hct MCV MCH MCHC RDW Plt Count MPV Sodium Potassium Chloride Carbon Dioxide Anion Gap BUN Creatinine Estim Creat Clear Calc Estimated GFR Glucose POC Capillary Glucose 154 H Calcium Total Bilirubin AST ALT Alkaline Phosphatase C-Reactive Protein Total Protein Albumin Procalcitonin
--- NOTE | 2025-02-01 13:06 | PCOTNOTE ---
The patient treatment was not able to be completed. Out of room for MRI and RN stated she will be moving to 344 after. Will plan to continue treatment per plan of care.
--- NOTE | 2025-02-01 13:45 | PC.NURSE ---
This patient, Kimberly Mixon, was received from [facility] on 02/01/25 at 1345. Patient/family oriented to unit policies and routines.
[2025-02-01] MEDS: AMOXICILLIN/CLAVULANATE K SUSP 400-57 MG/5 ML 5 ML UD 875 MG FEED TUBE ×2 (14:07→23:39)
--- NOTE | 2025-02-01 14:07 | PC.NURSE ---
Pt transferred to room 344 at 1312. Report given to MARIAM Clarke.
[2025-02-01 18:03] LABS: Glucose Point of Care 117 mg/dl (65-105)
[2025-02-01] MEDS: BENZONATATE 100 MG CAPSULE 200 MG PO (18:36)
[2025-02-01] MEDS: ATORVASTATIN 20 MG TABLET PO (18:36)
[2025-02-01] MEDS: SENNA/DOCUSATE SODIUM TABLET 1 TAB PO (23:02)
[2025-02-01] MEDS: INSULIN GLARGINE (*BKC) 100 UNITS/ML 10 UNITS SUB-Q (23:03)
[2025-02-02] VITALS (16 sets, daily range): BP systolic 97–113; BP diastolic 57–63; PULSE 75–120; RESP 16–22; TEMP 36.6–36.7; O2SAT 95–99
[2025-02-02] MEDS: IPRATROPIUM 0.5 MG/ALBUTEROL SULFATE 2.5 MG AMPUL.NEB 3 ML INHALATION ×4 (02:15→19:48)
[2025-02-02 05:55] LABS: Hematocrit 31.3 % (37.0-47.0); Hemoglobin 9.7 g/dL (12.0-15.0); Mean Corpuscular Hemoglobin 32.3 pg (26-34); Mean Corpuscular Volume 104.3 fl (80-100); Mean Platelet Volume 9.4 fl (7.4-10.4); Platelet Count Result 503 k/mm3 (150-375); Red Cell Distribution Width 14.9 % (11.5-14.5); White Blood Count 8.3 K/mm3 (4.5-10.0)
[2025-02-02] MEDS: guaiFENesin 200 MG/10 ML UDC 400 MG FEED TUBE ×5 (06:07→21:44)
[2025-02-02] MEDS: AMOXICILLIN/CLAVULANATE K SUSP 400-57 MG/5 ML 5 ML UD 875 MG FEED TUBE (06:09)
[2025-02-02 06:26] LABS: Alanine Aminotransferase 28 U/L (6-35); Albumin Level 3.2 g/dL (3.5-5.1); Alkaline Phosphatase 64 U/L (38-126); Anion Gap 6 mmol/L (4-12); Aspartate Amino Transferase 30 U/L (14-36); Bilirubin,Total 0.3 mg/dL (0.2-1.3); Blood Urea Nitrogen 6 mg/dL (7-17); Calcium 9.1 mg/dL (8.4-10.2); Carbon Dioxide 29 mmol/L (22-30); Chloride 102 mmol/L (98-107); Estimated CRCL calculation 95 ml/min; Estimated Glomerular Filt Rate > 60; Glucose 181 mg/dL (65-110); Potassium 4.8 mmol/L (3.4-5.0); Sodium 137 mmol/L (137-145); Total Protein 6.8 g/dL (6.3-8.2)
--- NOTE | 2025-02-02 08:17 | P.PNPL_ITS ---
Progress Note: A&P Assessment and Plan (1) Influenza A: Code(s): J10.1 - Influenza due to other identified influenza virus with other respiratory manifestations Status: Acute Assessment and Plan: Patient presented on 01/18/2025 with influenza a pneumonia, Staph aureus bacteremia and pneumonia. Patient was treated with Tamiflu on 01/18, 01/21 and 01/22. 01/28/25: Plan: would not entertain any additional Tamiflu at this time. 01/30/25; she has completed Tamiflu. (2) PNA (pneumonia): Code(s): J18.9 - Pneumonia, unspecified organism Status: Acute Assessment and Plan: Patient with no underlying lung disease. She has an unspecified autoimmune disease takes prednisone 1 time a year last use was 3 years ago. History of recurrent bronchitis but denies asthma or COPD. Blood cultures grew out Staph aureus sensitive to everything except tetracycline and sputum culture on 01/19/2025 grew out Staph aureus sensitive to everything except tetracycline. started on vancomycin and cefepime and doxycycline on 01/18 2025. Patient was switched to Ancef on 01/21/2025. Repeat blood cultures on 01/20/2025 negative x2. patient became afebrile on 01/23/2025. patient treated with Solu-Medrol 01/23 and 01/24. She had increased oxygen requirements on 01/25/2014 and was escalated from Ancef to meropenem and vancomycin (01/23 through 01/26). Currently the patient is on meropenem only (01/23 started). Patient had a CT scan of the chest that shows a cavity in the lingula, right middle lobe and possibly cavities in the consolidated area of the right lower lobe. There dense consolidations in the bases bilaterally and diffuse patchy infiltrates throughout the lungs. Linezolid added 01/28/25. Plan: patient with post influenza staph aureus pneumonia and bacteremia. she has a development of new cavities in her lungs bilaterally. I will send a QuantiFERON gold. I have discussed with ID pharmacy and patient should have been adequately covered for her Staph aureus since 01/18/2025, day 10. is unclear when these cavities developed after the CT scan on 01/18/2025. Will perform PEPITO to exclude endocarditis. I reviewed the MRI of the spine with Radi ology and there is no evidence of osteomyelitis, diskitis or spinal abscess. Will continue meropenem and start linezolid today. CT scan of the chest with dense consolidation in the bases and new lingula and right middle lobe cavities. 01/29/2025: Overall the patient denies any rest shortness of breath. She does desaturate when she walks to the chair. She has severe coughing paroxysms and sometimes coughs for 45 minutes that causes chest pain. She says occasionally she hears herself wheezing. Currently she is on 2 L nasal cannula saturations 93%. She has been afebrile since 01/23. Her white blood cell count is 11.3, creatinine is 0.51. Her BNP is 224. Her procalcitonin has improved from 3.6 on 01/21/2025 to 0.1 today. Her CRP has improved from 17.4 on 01/24/2025 to 4.8 today. Plan: patient is afebrile, improved procalcitonin, improved leukocytosis, improved CRP. Patient should have been adequately covered for her Staph aureus since 01/18/2025, day 11. Continue meropenem, started 6, day 7 and linezolid started 01/28, day 2. Patient to have repeat swallow study and QuantiFERON gold result prior to PEPITO to exclude endocarditis. goal saturation 90-94%, wean as tolerated. Discussed with family in the room, Dr. Geronimo. will follow with you. Later in day failed swallow study and dobbhoff placed. 01/30/25; she is on room air, afebrile, coughing less intensely with green secretions. I added Cornet valve today to help with clearance of secretions. QuantiFERON gold is not back yet. White blood cell count is now normal 8.9. No fever. Continue meropenem day 8 started 14; continue linezolid day 3 started 01/28. She may need a PICC line to complete antibiotics for cavitary pneumonia. 01/31/25; WBC lower 7.4, no fever; improved airway clearance with Cornet valve, afebrile. Continue meropenem day 9 started 01/23; continue linezolid day 4 started 01/28. 02/01/2025: Patient tells me she is feeling better each day. She has no rest shortness of breath. Minimal exertional shortness of breath. Cough is slowly in better with green to yellow phlegm. No hemoptysis. She is afebrile. Currently she is on room air with saturations 94-95%. White blood cell count 8.0, creatinine 0.52, procalcitonin remains low at 0.1. CRP has improved from 4.8 on 01/29/2025 to a value of 3.2 today. Chest x-ray shows minimal improvement left lower lobe, same right lower lobe infiltrate. She is positive 1.1 L since admission and her weight today is 64 kg. Plan: Patient is improving,patient is afebrile, low procalcitonin, no leukocytosis, improved CRP, chest x-ray with bibasilar infiltrates with improved aeration in the left base.. Patient should have been adequately covered for her Staph aureus since 01/18/2025, day 15. Status post meropenem, started 01/23, day 10 and linezolid started 01/28, day 5. will change the patient to Augmentin 875 per tube t.i.d. starting today. Patient is perform a bedside swallowing exercises and to have repeat swallow study 02/02and QuantiFERON gold result prior to PEPITO to exclude endocarditis. goal saturation 90-94%, wean as tolerated. 02/02/25: Continues to improve each day. No rest shortness of breath. Patient ambulated in the hallway with her ankle brace and had no dyspnea on exertion. She is on room air with saturations 94%. She is afebrile. White blood cell count 8.3, creatinine 0.49. Plan: Patient on Augmentin 875 per tube t.i.d., day 16 staph aureus coverage. Patient have repeat swallow today. QuantiFERON gold test still pending and awaiting for this result prior to PEPITO to exclude endocarditis. Discussed with family in the room, Dr. Colon. will follow with you. Subjective Date/time seen: 02/02/25 08:17 Interval history: 01/27/2025: This is a new pulmonary consult for influenza a pneumonia and hypoxemia. 54-year-old with a history of diabetes, polycystic ovarian syndrome, Raynaud's, Sjogren's, spinal stenosis, DJD, mouth sores and an unspecified autoimmune disea se. Patient seen a sql server architect from [place] in an out reach Clinic in [facility] and was diagnosed with a nonspecific autoimmune disease. She takes prednisone bursts for about a week every year. Her last use was approximately 3 years ago. Patient denies any history of childhood asthma, COPD but has had recurrent bronchitis episodes approximately once a year the last of which was 07/2020 for which she took antibiotics for 1 week and made a full recovery. Patient was at her baseline approximately 3 weeks ago and says she can walk 2 to 2-1/2 miles over 45-60 minutes with no respiratory limitations. She has no respiratory limitations in her activities of daily living. She is a never smoker and has no occupational exposures. Patient presented to the hospital on 01/18/2025 with shortness of breath, weakness and fatigue after she returned from a cruise [facility] and [place] on 01/08/2025. On 01/14 the patient developed a cough with worsening shortness of breath. She lost her appetite and stopped eating or drinking on 01/16/2025. She developed shortness of breath on 01/18/2025 but did not want to go to a hospital in [place] so she flew home and family brought her straight from the airport to [facility]. She was tachypneic and extremely weak and was intubated. White blood cell count 10.3, 23% bands, patient was started on cefepime to, doxycycline and vancomycin for septic shock. She was started on Tamiflu in the emergency department. Patient received Tamiflu on 01/18, 01/21 and 01/22. Blood cultures grew out Staph aureus sensitive to everything except tetracycline and sputum culture on 01/19/2025 grew out Staph aureus sensitive to everything except tetracycline. Patient was switched to Ancef. Repeat blood cultures on 01/21/2020 5- x2. patient became afebrile on 01/23/2025. She had increased oxygen requirements on 01/25/2014 and was escalated from Ancef to meropenem and vancomycin (01/23 through 01/26). Currently the patient is on meropenem only (01/23 started). Patient had a CT scan of the chest that shows a cavity in the lingula, right middle lobe and possibly cavities in the consolidated area of the right lower lobe. There dense consolidations in the bases bilaterally and diffuse patchy infiltrates throughout the lungs. Linezolid added 01/28/25. 01/28/2025: Patient complains of a dry cough that has persisted since she was extubated on 01/25. She denies fever but feels warm with no chills or rigors. She has no rest shortness of breath. Currently she is on 3 L with saturations 92-96%. She can do incentive spirometry and 1000 mL but this does provoke a cough. Her last fever was 614 at 6:38 a.m.. White blood cell count 16.4, creatinine 0.49, last CRP was 17.4 decreased from 45 on admission. Last procalcitonin is 3.6, decreased from a peak of 12.5 on 01/19/2025. Patient developed a right foot drop has a history of chronic back pain. CT scan of the chest with dense consolidation in the bases and new lingula and right middle lobe cavities. 01/28/25 01/29/2025: Overall the patient denies any rest shortness of breath. She does desaturate when she walks to the chair. She has severe coughing paroxysms and sometimes coughs for 45 minutes that causes chest pain. She says occasionally she hears herself wheezing. Currently she is on 2 L nasal cannula saturations 93%. She has been afebrile since 01/23. Her white blood cell count is 11.3, creatinine is 0.51. Her BNP is 224. Her procalcitonin has improved from 3.6 on 01/21/2025 to 0.1 today. Her CRP has improved from 17.4 on 01/24/2025 to 4.8 today. 01/30/2025; in-patient hospital visit; Patient was seen January 30 at 18:30. and a daughter are present. She is on room air since yesterday, dropped a little overnight, sat in the chair from 9 am until 4 pm today. She is having green secretions, wants to try Cornet valve. She is using Incentive spirometer. Dobbhoff is in place. She is feeling better, cough is less intense. White blood cell count is normal today 8.9 down from 11.3. 01/31/2025; Daughters are present. She was up in a chair for several hours. When walking to bathroom, had increased cough and sputum. The Cornet valve is helping clear green secretions, and she is using IS, gets this ti 1.5 L, excellent. She remains on room air. Tolerating Dobbhoff tube feeds. Will have swallow study repeated soon. WBC lower 7.4. 02/01/2025: Patient tells me she is feeling better each day. She has no rest shortness of breath. Minimal exertional shortness of breath. Cough is slowly in better with green to yellow phlegm. No hemoptysis. She is afebrile. Currently she is on room air with saturations 94-95%. White blood cell count 8.0, creatinine 0.52, procalcitonin remains low at 0.1. CRP has improved from 4.8 on 01/29/2025 to a value of 3.2 today. Chest x-ray shows minimal improvement left lower lobe, same right lower lobe infiltrate. She is positive 1.1 L since admission and her weight today is 64 kg. 02/02/25: Continues to improve each day. No rest shortness of breath. Patient ambulated in the hallway with her ankle brace and had no dyspnea on exertion. She is on room air with saturations 94%. She is afebrile. White blood cell count 8.3, creatinine 0.49. DATA: 01/28/25: CLINICAL INDICATION: Shortness of breath, pneumonia suspected clinically COMPARISON: 01/18/2025 Reference is made to multiple plain film evaluations of the chest dated 01/26/2025 and dating back to 01/20/2025. TECHNIQUE: Multiple contiguous axial images of the chest was performed without the administration of intravenous contrast. This CT examination was performed utilizing dose reduction techniques. DLP: 124 mGy-cm FINDINGS/OBSERVATIONS: Interval extubation and removal of the orogastric tube with compared with previous study. No LUNG: Bibasilar consolidation, right greater than left. Patchy groundglass opacification within the bilateral pulmonary tomi, right greater than left. Cavitation is now identified within the lingula, with an intracavitary nodule. Cavitation is also now identified within the right middle lobe. Cavitation is an interval change from previous examination. HEART: The heart is of normal size, without pericardial effusion. MEDIASTINUM: Limited evaluation without intravenous contrast. SOFT TISSUES OF THE CHEST: Unremarkable. BONES OF THE CHEST: No acute fracture. No lytic or blastic lesions are identified. UPPER ABDOMEN: Gaseous distention of the stomach. The gallbladder is surgically absent. IMPRESSION: Interval progression of multifocal consolidation within the bilateral lung martini, now demonstrating cavitation with intracavitary nodule in the lingula for which the differential diagnosis is broad but includes reactivated tuberculosis, aspergillosis, autoimmune etiology and infection versus septic pulmonary emboli (thought to be less likely secondary to cavitary distribution) 01/19/2025: Echo Summary 1. Left ventricular chamber dimension is normal. 2. Left ventricular systolic function is normal, estimated at 60-65. 3. The left ventricular diastolic function is grade I diastolic dysfunction. 4. Right ventricular chamber dimension is mildly enlarged. 5. Right ventricular systolic function is normal. 6. Right atrial chamber dimension is mildly enlarged. 7. There is mild to moderate tricuspid valve regurgitation. Right Ventricle Right ventricular chamber dimension is mildly enlarged. Right ventricular systolic function is normal. Left Atria Left atrial chamber dimension is normal. Right Atria Right atrial chamber dimension is mildly enlarged. Atrial Septum Intact interatrial septum visualized by color flow imaging. RVSP 64. 01/27/2025 cervical, thoracic, lumbar spine MRI: IMPRESSION: 1. . 20 degrees lumbar dextroscoliosis with severe spondylosis. IMPRESSION: 1. 15 degrees thoracic levoscoliosis with mild spondylosis. 2. Consolidation in the bilateral lower lobes which could represent atelectasis or pneumonia. IMPRESSION: 1. Mild cervical spondylosis. 01/18/2025: CTA chest PE protocol Ordering provider: Maxi Macedo MD History: 54 years Female with . sob . Comparison: None. Findings: Endotracheal tube and nasogastric tube are noted. PULMONARY ARTERIES: No pulmonary embolus. VISUALIZED THORACIC INLET: Normal. MEDIASTINUM: Aorta/coronary arteries: Mild atheromatous disease. Heart/other: The heart is not enlarged. Lymph nodes: No mediastinal or hilar adenopathy. Small prevascular lymph nodes are noted. LUNGS: Bilateral lower lobe and lingular pneumonia is noted. Pneumonia in the right upper lobe posteriorly is also seen. Minimal consolidation also seen in the middle lobe. No pulmonary nodules or masses. No effusions. No pneumothorax. VISUALIZED UPPER ABDOMEN: Fat infiltration of the liver. Status post cholecystectomy. Otherwise, the visualized upper abdomen is normal. MUSCULOSKELETAL: Soft tissues: The superficial soft tissues are normal. Bones: Age appropriate degenerative changes of the spine. IMPRESSION: 1. No pulmonary embolism. 2. Bilateral pneumonia in the lower lobes. Pneumonia in the lingula. Minimal changes of pneumonia in the right middle lobe. Pneumonia in the right upper lobe posteriorly. Follow-up to resolution is advised. Review of Systems Review of Systems: All systems reviewed & are unremarkable except as noted in HPI and below Constitutional: Constitutional: Reports no additional constitutional complaints Eyes: Eyes: Reports no additional eye complaints ENT: Reports system reviewed and no additional complaints, except as documented Cardiovascular: Cardiovascular: Reports no additional cardiovascular complaints Respiratory: Respiratory: Reports no additional respiratory complaints Gastrointestinal: Gastrointestinal: Reports no additional gastrointestinal complaints Musculoskeletal: Musculoskeletal: Reports no additional musculoskeletal complaints Neurologic: Reports system reviewed and no additional complaints, except as documented Psychiatric: Psychiatric: Reports no additional psychiatric complaints Endocrine: Endocrine: Reports no additional endocrine complaints Hematologic/Lymphatic: Hematologic/Lymphatic: Reports no additional hematologic/lymphatic complaints Allergic/Immunologic: Allergic/Immunologic: Reports no additional al lergic/immunologic complaints Exam Const: General: cooperative, healthy appearing and comfortable Orientation/consciousness: oriented to person, oriented to place and oriented to time Other: no respiratory distress on Room Air HENMT: Head: normal to inspection Ears: hearing grossly normal bilaterally Eyes: General: appearance normal, both eyes and all related structures Neck: Neck: normal visual inspection Chest: Chest palpation & inspection: normal inspection of the chest Resp: Effort & Inspection: normal respiratory effort and able to speak in complete sentences Auscultation: crackles, no rales, no rhonchi, no wheezes and lung sounds not diminished Other: Few diffuse crackles bases Cardio: Jugular venous distension: no JVD GI: Inspection: normal to inspection Skin: General skin exam: normal color Neuro: General: oriented to person, oriented to place and oriented to time Extrem: General: normal to inspection Other: Inability to raise right foot. Loss of sensation top of foot. She has a soft boot on the right foot to support her footdrop. Psych: Appearance: grossly normal Objective Data Vital Signs Vital Signs: Vital Signs - 24 hr 02/01/25 09:19 02/01/25 10:00 02/01/25 12:00 Temperature Pulse Rate 102 H 105 H 99 Respiratory Rate Blood Pressure Pulse Oximetry Oxygen Delivery Fraction of Inspired Oxygen 02/01/25 12:00 02/01/25 16:00 02/01/25 16:00 Temperature Pulse Rate 99 92 99 Respiratory Rate 16 Blood Pressure 99/64 L Pulse Oximetry 97 Oxygen Delivery Fraction of Inspired Oxygen 02/01/25 20:00 02/01/25 20:40 02/01/25 20:43 Temperature Pulse Rate 60 55 L 55 L Respiratory Rate 20 20 20 Blood Pressure Pulse Oximetry 94 94 Oxygen Delivery Room Air Room Air Fraction of Inspired Oxygen 21 21 02/01/25 20:52 02/01/25 22:08 02/02/25 00:00 Temperature 36.1 C L Pulse Rate 60 99 96 Respiratory Rate 20 18 Blood Pressure 103/60 Pulse Oximetry 96 Oxygen Delivery Fraction of Inspired Oxygen 02/02/25 00:00 02/02/25 02:15 02/02/25 04:00 Temperature Pulse Rate 96 75 99 Respiratory Rate 20 Blood Pressure Pulse Oximetry Oxygen Delivery Fraction of Inspired Oxygen 02/02/25 08:03 02/02/25 08:03 02/02/25 08:12 Temperature Pulse Rate 102 H 102 H 103 H Respiratory Rate 20 20 20 Blood Pressure Pulse Oximetry 95 Oxygen Delivery Room Air Fraction of Inspired Oxygen Intake/Output Intake/Output: Intake & Output 01/30/25 01/31/25 02/01/25 02/02/25 23:59 23:59 23:59 23:59 Intake Total 2092 2610 1075 Output Total 2908 9372 0736 Balance -809 -541 -275 Meds/Results Medications: Active Medications Generic Name Dose Route Start Last Admin Trade Name Freq PRN Reason Stop Dose Admin Acetaminophen 650 mg 01/18/25 20:28 01/24/25 08:23 Acetaminophen Elixir 325 Mg/10.15 Ml Udc FEED TUBE 650 mg Q4H PRN Administration Mild Pain (1-3) or Fever Albuterol/Ipratropium 3 ml 01/29/25 14:00 02/02/25 08:02 Ipratropium 0.5 Mg/Albuterol Sulfate 2.5 Mg Ampul.Neb 3 Ml INHALATION 3 ml Q6HRT SESAR Administration Amoxicillin/Clavulanate Potassium 875 mg 02/01/25 14:00 02/02/25 06:09 Amoxicillin/Clavulanate K Susp 400-57 Mg/5 Ml 5 Ml Ud FEED TUBE 875 mg Q8HR SESAR Administration Atorvastatin Calcium 20 mg 01/19/25 18:00 02/01/25 18:36 Atorvastatin 20 Mg Tablet PO 20 mg QPM SESAR Administration Benzocaine/Butamben/Tetracaine HCl 1 spray 01/29/25 18:22 01/29/25 22:41 Benzocaine/Tetracaine [place] (*Sp) 56 Ml Aerosol MUCOUS MEM 1 spray Q4HR PRN Administration pain Benzonatate 200 mg 01/29/25 13:00 02/01/25 18:36 Benzonatate 100 Mg Capsule PO 200 mg TID SESAR Administration Dextrose 12.5 gm 01/27/25 05:42 Dextrose 50% 25 Gm/50 Ml Syringe IV PUSH PRN PRN Hypoglycemia Protocol Enoxaparin Sodium 40 mg 01/20/25 09:00 02/01/25 09:36 Enoxaparin 40 Mg/0.4 Ml Syringe SUB-Q 40 mg DAILY SESAR Administration Estradiol 1 mg 01/19/25 09:00 02/01/25 09:20 Estradiol 1 Mg Tablet PO 1 mg DAILY SESAR Administration Glucagon 1 mg 01/27/25 05:42 Glucagon For Inj 1 Mg Vial IM PRN PRN Hypoglycemia Protocol Glucose 15 gm 01/27/25 05:42 Glucose Oral Gel 15 Gm Of Glucse In 37.5 Gm Tube PO PRN PRN Hypoglycemia Protocol Guaifenesin 400 mg 01/29/25 21:00 02/02/25 06:07 Guaifenesin 200 Mg/10 Ml Udc FEED TUBE 400 mg Q4HR SESAR Administration Dextrose 1,000 mls @ 100 mls/hr 01/27/25 05:42 Dextrose 5% 1,000 Ml IVPB PRN PRN Hypoglycemia Protocol Insulin Aspart 3 - 6 units 01/27/25 06:30 02/01/25 23:03 Insulin Aspart (*Bkc) 100 Units/Ml SUB-Q Not Given ACHS SESAR Protocol Insulin Glargine 10 units 01/25/25 21:00 02/01/25 23:03 Insulin Glargine (*Bkc) 100 Units/Ml SUB-Q 10 units HS SESAR Administration Ipratropium [place] 0.5 mg 01/26/25 07:34 Ipratropium Br 0.02% Inh Soln 0.5 Mg/2.5 Ml Vial INHALATION Q6HRT PRN Wheezing Levalbuterol HCl 0.63 mg 01/26/25 07:34 01/26/25 22:37 Levalbuterol Neb 1.25 Mg/3 Ml INHALATION 0.63 mg Q6HRT PRN Administration Wheezing Metoprolol Tartrate 25 mg 01/26/25 21:45 02/01/25 23:02 Metoprolol Tartrate 25 Mg Tablet PO 25 mg Q12HR SESAR Administration Miscellaneous Information 1 each 02/02/25 00:01 Meropenem Needs To Be Renewed Or It Will Automatically Discontinue. XX 03/04/25 00:00 CLARIFY SESAR Ondansetron HCl 4 mg 01/19/25 01:20 Ondansetron Inj 4 Mg/2 Ml Vial IV PUSH Q4H PRN Nausea And Vomiting Pantoprazole Sodium 40 mg 01/28/25 09:00 02/01/25 09:19 Pantoprazole 40 Mg Tablet PO 40 mg QAM SESAR Administration Polyethylene Glycol 17 gm 01/24/25 10:15 Polyethylene Glycol 3350 17 Gm Powd.Pack PO QAM PRN Constipation Senna/Docusate Sodium 1 tab 01/24/25 10:20 02/01/25 23:02 Senna/Docusate Sodium Tablet PO 1 tab Q12HR SESAR Administration Spironolactone 100 mg 01/19/25 09:00 Spironolactone 50 Mg Tablet PO Q12HR SESAR Radiology Results: ITS Impressions Chest CTA 01/18/25 15:25 IMPRESSION: 1. No pulmonary embolism. 2. Bilateral pneumonia in the lower lobes. Pneumonia in the lingula. Minimal changes of pneumonia in the right middle lobe. Pneumonia in the right upper lobe posteriorly. Follow-up to resolution is advised. Head CT 01/22/25 10:18 Impression: No significant abnormality seen. Chest CT 01/28/25 15:29 IMPRESSION: Interval progression of multifocal consolidation within the bilateral lung martini, now demonstrating cavitation with intracavitary nodule in the lingula for which the differential diagnosis is broad but includes reactivated tuberculosis, aspergillosis, autoimmune etiology and infection versus septic pulmonary emboli (thought to be less likely secondary to cavitary distribution) Modified Barium Swallow 01/29/25 15:03 IMPRESSION: Pharyngeal dysphagia with laryngeal penetration and aspiration. Please correlate with speech pathologist findings and specific feeding recommendations. Chest X-Ray 02/01/25 09:16 IMPRESSION: Bibasilar and perihilar pneumonia. No significant change from previous examination. Cervical Spine MRI 02/01/25 13:22 IMPRESSION: Posterior disc osteophyte complex causing mild spinal canal stenosis at C4-5 and C5-6. Thoracic Spine MRI 02/01/25 13:27 IMPRESSION: MRI of the thoracic spine is within normal limits for age. Lumbar Spine MRI 02/01/25 13:32 IMPRESSION: Asymmetric disc bulges at L2-3 and L3-4 along with facet arthropathy causing mild spinal canal stenosis and mild left neural foraminal narrowing. Correlate with clinical distribution of symptoms. Labs Labs: Laboratory Results - last 24 hr 02/01/25 02/01/25 02/01/25 04:31 10:05 11:56 WBC RBC Hgb Hct MCV MCH MCHC RDW Plt Count MPV Sodium Potassium Chloride Carbon Dioxide Anion Gap BUN Creatinine Estim Creat Clear Calc Estimated GFR Glucose POC Capillary Glucose 134 H 154 H Calcium Total Bilirubin AST ALT Alkaline Phosphatase C-Reactive Protein 3.2 H Total Protein Albumin Procalcitonin 0.1 02/01/25 02/02/25 17:55 05:49 WBC 8.3 RBC 3.00 L Hgb 9.7 L Hct 31.3 L MCV 104.3 H MCH 32.3 MCHC 31.0 L RDW 14.9 H Plt Count 503 H MPV 9.4 Sodium 137 Potassium 4.8 Chloride 102 Carbon Dioxide 29 Anion Gap 6 BUN 6 L Creatinine 0.49 L Estim Creat Clear Calc 95 Estimated GFR > 60 Glucose 181 H POC Capillary Glucose 117 H Calcium 9.1 Total Bilirubin 0.3 AST 30 ALT 28 Alkaline Phosphatase 64 C-Reactive Protein Total Protein 6.8 Albumin 3.2 L Procalcitonin
[2025-02-02 10:55] LABS: Glucose Point of Care 161 mg/dl (65-105)
[2025-02-02] MEDS: ENOXAPARIN 40 MG/0.4 ML SYRINGE SUB-Q (11:01)
[2025-02-02] MEDS: METOPROLOL TARTRATE 25 MG TABLET PO ×2 (11:02→21:44)
[2025-02-02] MEDS: estradioL 1 MG TABLET PO (11:02)
[2025-02-02] MEDS: BENZONATATE 100 MG CAPSULE 200 MG PO ×3 (11:02→17:46)
[2025-02-02] MEDS: PANTOPRAZOLE 40 MG TABLET PO (11:05)
--- NOTE | 2025-02-02 11:13 | PCNFU ---
Nutrition Follow-Up Complete: Increased protein energy needs related to recent mechanical ventilation, as evidenced by plan of care Goal: Intakes >75% Limited progress towards goal. We will continue current goal. Pt current nutrition is DBCC with Glucerna shakes Last recorded weight is 64 kg, no weight changes. Bowel Motility: Last reported BM 02/01 Labs Reviewed:Glu 181, BUN 6, Cr 0.49, Alb 3.2 Meds Noted: Lantus, Lovenox, Protonix. Skin:WNL Additional Notes:Patient had repeat MBS today. NGT and tube feedings discontinued. Diet order has advanced to a DBCC diet with Glucerna shake BID. Agree with diet orders. Monitor intakes, weights, labs, supplement tolerance, output, plan of care Follow up in 5 days
--- NOTE | 2025-02-02 11:28 | PCSTNOTE ---
Please refer to the Modified Barium Swallow Evaluation in the EMR. (3rd) Pt was seen for a repeat MBS to return to oral intake; pt currently has a dobhoff feeding tube in place during testing. Pt is alert and oriented; she stated she's been performing the dysphagia exercises. The pt was seated for a lateral view and was presented with 5 ml thin liquids via a spoon, pudding consistency barium via a spoon, cracker coated with barium pudding via a spoon, and uncontrolled thin liquids via a cup and a straw. The oral stages were WNL; during the pharyngeal stage, the following was exhibited: reduced tongue base retraction was exhibited as evidenced by vallecular residue which pt independently dry swallowed and cleared; reduced laryngeal elevation as evidenced by laryngeal penetration during the swallow & mild pyriform sinus residue (cracker which was cleared with I dry swallows). With the uncontrolled trials, the chin tuck was used which appeared to prevent further instances of laryngeal penetration/aspiration. No aspiration occurred during testing. Impression: mild/moderate dysphagia Recommendations: level 7 with level 0 but pt must use the chin tuck with the thin liquids and extra dry swallows after solids. Pt was also instructed to cough/throat clear after thin liquids as a precaution to clear any possible penetration. ST will continue dysphagia therapy
[2025-02-02] MEDS: AMOXICILLIN/CLAVULANATE K 875-125 MG TAB 1 TABLET PO ×2 (15:46→21:44)
--- NOTE | 2025-02-02 15:51 | P.PNIM_ITS ---
Progress Note: A&P Assessment and Plan (1) Septic shock: Code(s): A41.9 - Sepsis, unspecified organism; R65.21 - Severe sepsis with septic shock Status: Acute Assessment and Plan: Patient presented with bilateral lower lobe infiltrates, pneumonia, hypotension overnight requiring central line placement on 01/19, and Levophed -01/20: currently off all pressors -01/18: Blood and sputum cultures growing MSSA -01/20 and 01/23: Repeat blood cultures negative so far -status post doxycycline for 5 days -01/21: started on Cefazolin and DC cefepime, vancomycin (01/21) -patient received a course of Solu-Medrol for 4 doses, wheezing has improved -01/23: Patient again febrile with a T-max of 101.3?, thick yellow colored secretions from the ET tube, white blood cell count trending up. FiO2 requirements going up, Will repeat blood cultures, -01/23: DC cefazolin. Started vancomycin and meropenem (01/23) Fever curve much improved, patient is afebrile, improvement in WBC 1625: Echocardiogram Summary 1. Left ventricular chamber dimension is normal. 2. Left ventricular systolic function is normal, estimated at 60-65. 3. The left ventricular diastolic function is grade I diastolic dysfunction. 4. Right ventricular chamber dimension is mildly enlarged. 5. Right ventricular systolic function is normal. 6. Right atrial chamber dimension is mildly enlarged. 7. There is mild to moderate tricuspid valve regurgitation. (2) Acute hypoxic respiratory failure: Code(s): J96.01 - Acute respiratory failure with hypoxia Status: Acute Assessment and Plan: 01/18: Patient presented the ED with shortness of breath, weakness, diabetic ketoacidosis, pneumonia. Intubated in the ED for airway protection and hypoxia 01/25 extubated -chest x-ray and ABGs reviewed, - CTA chest on admission showed bilateral lower lobe pneumonia -completed Tamiflu -01/23: bilateral diffuse wheezing, continue bronchodilators and received a course Solu-Medrol -wheezing which improved this morning, Continue supplemental oxygen Incentive spirometry -01/28: CT chest shows cavitary lesions. -continue meropenem -started linezolid 01/15: CTA chest IMPRESSION: 1. No pulmonary embolism. 2. Bilateral pneumonia in the lower lobes. Pneumonia in the lingula. Minimal changes of pneumonia in the right middle lobe. Pneumonia in the right upper lobe posteriorly. Follow-up to resolution is advised. (3) PNA (pneumonia): Code(s): J18.9 - Pneumonia, unspecified organism Status: Acute Assessment and Plan: 01/28/2025 CT shows a cavitary lesions in lung s/p meropenem and linezolid awaiting QuantiFERON test for PEPITO exam Continue Augmentin 01/28: CT Chest:Interval progression of multifocal consolidation within the bilateral lung martini, now demonstrating cavitation with intracavitary nodule in the lingula for which the differential diagnosis is broad but includes reactivated tuberculosis, aspergillosis, autoimmune etiology and infection versus septic pulmonary emboli (thought to be less likely secondary to cavitary distribution) (4) DKA (diabetic ketoacidosis): Code(s): E11.10 - Type 2 diabetes mellitus with ketoacidosis without coma Status: Acute Assessment and Plan: Patient presented with elevated beta hydroxybutyrate, anion gap metabolic acidosis, UA showed ketones, glucose -likely euglycemic diabetic ketoacidosis as patient was still taking Jardiance and metformin -this given 3 L IV fluids since admission, started on insulin infusion per DKA protocol -overnight patient was transition to long-acting insulin Lantus, and sliding scale insulin with Accu-Chek -continue to monitor -blood sugars in stable, continue Accu-Cheks, sliding scale insulin and Lantus (5) Flu: Code(s): J11.1 - Influenza due to unidentified influenza virus with other respiratory manifestations Status: Acute Assessment and Plan: Patient was tested positive for influenza A -status post course of Tamiflu (6) Chronic low blood pressure: Code(s): I95.89 - Other hypotension Status: Acute Assessment and Plan: Patient has chronic low blood pressures, according the daughter systolic blood pressures range in the 80s to 90s -blood pressures remain stable off pressors (7) Sinus tachycardia: Code(s): R00.0 - Tachycardia, unspecified Status: Acute Assessment and Plan: Has a history of chronic sinus tachycardia for which she is on metoprolol at home, -patient's heart rate is in the 100-110 which is her baseline -01/23: Restarted home metoprolol Change bronchodilators p.r.n. Check thyroid function test (8) PCOS (polycystic ovarian syndrome): Code(s): E28.2 - Polycystic ovarian syndrome Status: Acute Assessment and Plan: Hold spironolactone (9) Hyperlipidemia: Code(s): E78.5 - Hyperlipidemia, unspecified Status: Acute Assessment and Plan: continue Atorvastatin (10) Electrolyte imbalance: Code(s): E87.8 - Other disorders of electrolyte and fluid balance, not elsewhere classified Status: Acute Assessment and Plan: Replace potassium (11) Encephalopathy: Code(s): G93.40 - Encephalopathy, unspecified Status: Acute Assessment and Plan: Improving. Part delirium. Will get her up in a chair, PT OT, IS (12) Right foot drop: Code(s): M21.371 - Foot drop, right foot Status: Acute Assessment and Plan: Acute finding Reviewed MRI cervical, thoracic and lumbar Evidence of New cavitary lesions in lung Will repeat MRI lumbar needed Dr. Domingo reviewed with MRI with Radiology to definitely rule out osteomyelitis, diskitis or spinal abscess Consulted neurology and Neurosurgery Evidence of bowel incontinence Continue AFO EMG after Neurology recommendation No neurosurgery needed as MRI did not showed disc herniation or cord compression PT OT (13) Dysphagia: Code(s): R13.10 - Dysphagia, unspecified Status: Acute Assessment and Plan: 0 01/29 patient failed swallow study NPO Insert NG and start nutrition Dietitian on board Plan MSSA bacteremia blood culture reviewed repeat pending Awaitign Quatiferon test for PEPITO exam Cotnineu High dose Augmentin DVT prophylaxis: Lovenox Stress ulcer prophylaxis: Protonix Nutrition: Swallow study ordered and pending Code Status: Full code Subjective Date/time seen: 02/02/25 15:51 Interval history: Comfortable at bedside Review of Systems Review of Systems: All systems reviewed & are unremarkable except as noted in HPI and below (HPI) ROS unobtainable: Yes unobtainable due to endotracheal tube, unobtainable due to medical condition and unobtainable due to mental status Exam Narrative: General: Awake alert in no acute distress HEENT:? Pupils small and reactive bilaterally, sclera is clear, Neck:? Supple, right IJ central line in place Respiratory:? Coarse breath sounds bilaterally, decreased at bases, bilateral wheezing, no tachypnea use of accessory muscles or respiratory distress Cardiac:? Sinus tachycardia, S1-S2 was normal, no murmurs Abdomen:? Soft, nontender, nondistended, hypoactive bowel sounds Extremities:? No edema, palpable pedal pulses Neuro:? Intubated, AO x3 follows simple commands in all extremities carries conversation but is little confused and goes tangential when answering questions Skin:? No lesions noted Psych:? Normal speech and affect Objective Data Vital Signs Vital Signs: Vital Signs - 24 hr 02/01/25 16:00 02/01/25 16:00 02/01/25 20:00 Temperature Pulse Rate 92 99 60 Respiratory Rate 16 20 Blood Pressure 99/64 L Pulse Oximetry 97 94 Oxygen Delivery Room Air Fraction of Inspired Oxygen 21 02/01/25 20:40 02/01/25 20:43 02/01/25 20:52 Temperature Pulse Rate 55 L 55 L 60 Respiratory Rate 20 20 20 Blood Pressure Pulse Oximetry 94 Oxygen Delivery Room Air Fraction of Inspired Oxygen 21 02/01/25 22:08 02/02/25 00:00 02/02/25 00:00 Temperature 97.0 F L Pulse Rate 99 96 96 Respiratory Rate 18 Blood Pressure 103/60 Pulse Oximetry 96 Oxygen Delivery Fraction of Inspired Oxygen 02/02/25 02:15 02/02/25 04:00 02/02/25 06:00 Temperature 97.9 F Pulse Rate 75 99 106 H Respiratory Rate 20 18 Blood Pressure 101/58 L Pulse Oximetry 96 Oxygen Delivery Fraction of Inspired Oxygen 02/02/25 08:03 02/02/25 08:03 02/02/25 08:12 Temperature Pulse Rate 102 H 102 H 103 H Respiratory Rate 20 20 20 Blood Pressure Pulse Oximetry 95 Oxygen Delivery Room Air Fraction of Inspired Oxygen 02/02/25 10:36 02/02/25 11:02 02/02/25 15:25 Temperature 98.1 F Pulse Rate 117 H 117 H 108 H Respiratory Rate 16 20 Blood Pressure 113/57 L Pulse Oximetry 98 Oxygen Delivery Fraction of Inspired Oxygen Intake/Output Intake/Output: Intake & Output 01/30/25 01/31/25 02/01/25 02/02/25 23:59 23:59 23:59 23:59 Intake Total 2092 2610 1075 Output Total 2901 3151 1350 1600 [facility] -[phone] Meds/Results Medications: Active Medications Generic Name Dose Route Start Last Admin Trade Name Freq PRN Reason Stop Dose Admin Acetaminophen 650 mg 01/18/25 20:28 01/24/25 08:23 Acetaminophen Elixir 325 Mg/10.15 Ml Udc FEED TUBE 650 mg Q4H PRN Administration Mild Pain (1-3) or Fever Albuterol/Ipratropium 3 ml 01/29/25 14:00 02/02/25 15:25 Ipratropium 0.5 Mg/Albuterol Sulfate 2.5 Mg Ampul.Neb 3 Ml INHALATION 3 ml Q6HRT SESAR Administration Amoxicillin/Clavulanate Potassium 1 tablet 02/02/25 14:00 Amoxicillin/Clavulanate K 875-125 Mg Tab PO Q8HR SESAR Atorvastatin Calcium 20 mg 01/19/25 18:00 02/01/25 18:36 Atorvastatin 20 Mg Tablet PO 20 mg QPM SESAR Administration Benzocaine/Butamben/Tetracaine HCl 1 spray 01/29/25 18:22 01/29/25 22:41 Benzocaine/Tetracaine [place] (*Sp) 56 Ml Aerosol MUCOUS MEM 1 spray Q4HR PRN Administration pain Benzonatate 200 mg 01/29/25 13:00 02/02/25 13:21 Benzonatate 100 Mg Capsule PO 200 mg TID SESAR Administration Dextrose 12.5 gm 01/27/25 05:42 Dextrose 50% 25 Gm/50 Ml Syringe IV PUSH PRN PRN Hypoglycemia Protocol Enoxaparin Sodium 40 mg 01/20/25 09:00 02/02/25 11:01 Enoxaparin 40 Mg/0.4 Ml Syringe SUB-Q 40 mg DAILY SESAR Administration Estradiol 1 mg 01/19/25 09:00 02/02/25 11:02 Estradiol 1 Mg Tablet PO 1 mg DAILY SESAR Administration Glucagon 1 mg 01/27/25 05:42 Glucagon For Inj 1 Mg Vial IM PRN PRN Hypoglycemia Protocol Glucose 15 gm 01/27/25 05:42 Glucose Oral Gel 15 Gm Of Glucse In 37.5 Gm Tube PO PRN PRN Hypoglycemia Protocol Guaifenesin 400 mg 01/29/25 21:00 02/02/25 13:21 Guaifenesin 200 Mg/10 Ml Udc FEED TUBE 400 mg Q4HR SESAR Administration Dextrose 1,000 mls @ 100 mls/hr 01/27/25 05:42 Dextrose 5% 1,000 Ml IVPB PRN PRN Hypoglycemia Protocol Insulin Aspart 3 - 6 units 01/27/25 06:30 02/02/25 12:50 Insulin Aspart (*Bkc) 100 Units/Ml SUB-Q Not Given ACHS [facility] Protocol Insulin Glargine 10 units 01/25/25 21:00 02/01/25 23:03 Insulin Glargine (*Bkc) 100 Units/Ml SUB-Q 10 units HS SESAR Administration Ipratropium [place] 0.5 mg 01/26/25 07:34 Ipratropium Br 0.02% Inh Soln 0.5 Mg/2.5 Ml Vial INHALATION Q6HRT PRN Wheezing Levalbuterol HCl 0.63 mg 01/26/25 07:34 01/26/25 22:37 Levalbuterol Neb 1.25 Mg/3 Ml INHALATION 0.63 mg Q6HRT PRN Administration Wheezing Metoprolol Tartrate 25 mg 01/26/25 21:45 02/02/25 11:02 Metoprolol Tartrate 25 Mg Tablet PO 25 mg Q12HR SESAR Administration Ondansetron HCl 4 mg 01/19/25 01:20 Ondansetron Inj 4 Mg/2 Ml Vial IV PUSH Q4H PRN Nausea And Vomiting Pantoprazole Sodium 40 mg 01/28/25 09:00 02/02/25 11:05 Pantoprazole 40 Mg Tablet PO 40 mg QAM SESAR Administration Polyethylene Glycol 17 gm 01/24/25 10:15 Polyethylene Glycol 3350 17 Gm Powd.Pack PO QAM PRN Constipation Senna/Docusate Sodium 1 tab 01/24/25 10:20 02/02/25 11:07 Senna/Docusate Sodium Tablet PO Not Given Q12HR [facility] Spironolactone 100 mg 01/19/25 09:00 Spironolactone 50 Mg Tablet PO Q12HR [facility] Radiology Results: ITS Impressions Chest CTA 01/18/25 15:25 IMPRESSION: 1. No pulmonary embolism. 2. Bilateral pneumonia in the lower lobes. Pneumonia in the lingula. Minimal changes of pneumonia in the right middle lobe. Pneumonia in the right upper lobe posteriorly. Follow-up to resolution is advised. Head CT 01/22/25 10:18 Impression: No significant abnormality seen. Chest CT 01/28/25 15:29 IMPRESSION: Interval progression of multifocal consolidation within the bilateral lung martini, now demonstrating cavitation with intracavitary nodule in the lingula for which the differential diagnosis is broad but includes reactivated tuberculosis, aspergillosis, autoimmune etiology and infection versus septic pulmonary emboli (thought to be less likely secondary to cavitary distribution) Chest X-Ray 02/01/25 09:16 IMPRESSION: Bibasilar and perihilar pneumonia. No significant change from previous exa mination. Cervical Spine MRI 02/01/25 13:22 IMPRESSION: Posterior disc osteophyte complex causing mild spinal canal stenosis at C4-5 and C5-6. Thoracic Spine MRI 02/01/25 13:27 IMPRESSION: MRI of the thoracic spine is within normal limits for age. Lumbar Spine MRI 02/01/25 13:32 IMPRESSION: Asymmetric disc bulges at L2-3 and L3-4 along with facet arthropathy causing mild spinal canal stenosis and mild left neural foraminal narrowing. Correlate with clinical distribution of symptoms. Modified Barium Swallow 02/02/25 09:52 IMPRESSION: Pharyngeal dysphagia with laryngeal penetration without aspiration. Please correlate with speech pathologist findings and specific feeding recommendations. Labs Labs: Laboratory Results - last 24 hr 02/01/25 02/02/25 02/02/25 17:55 05:49 10:51 WBC 8.3 RBC 3.00 L Hgb 9.7 L Hct 31.3 L MCV 104.3 H MCH 32.3 MCHC 31.0 L RDW 14.9 H Plt Count 503 H MPV 9.4 Sodium 137 Potassium 4.8 Chloride 102 Carbon Dioxide 29 Anion Gap 6 BUN 6 L Creatinine 0.49 L Estim Creat Clear Calc 95 Estimated GFR > 60 Glucose 181 H POC Capillary Glucose 117 H 161 H Calcium 9.1 Total Bilirubin 0.3 AST 30 ALT 28 Alkaline Phosphatase 64 Total Protein 6.8 Albumin 3.2 L Quality VTE Prophylaxis VTE prophylaxis: pharmacologic ordered
[2025-02-02 17:29] LABS: Glucose Point of Care 122 mg/dl (65-105)
[2025-02-02] MEDS: ATORVASTATIN 20 MG TABLET PO (17:57)
[2025-02-02] MEDS: INSULIN GLARGINE (*BKC) 100 UNITS/ML 10 UNITS SUB-Q (21:46)
[2025-02-03] VITALS (18 sets, daily range): BP systolic 92–104; BP diastolic 49–65; PULSE 78–110; RESP 16–18; TEMP 36.7–36.9; O2SAT 91–95
[2025-02-03] MEDS: guaiFENesin 200 MG/10 ML UDC 400 MG FEED TUBE ×2 (01:23→05:41)
[2025-02-03] MEDS: IPRATROPIUM 0.5 MG/ALBUTEROL SULFATE 2.5 MG AMPUL.NEB 3 ML INHALATION ×4 (02:54→21:38)
[2025-02-03] MEDS: AMOXICILLIN/CLAVULANATE K 875-125 MG TAB 1 TABLET PO ×3 (05:41→21:38)
[2025-02-03 06:03] LABS: Basophils Absolute Auto 0.1 K/mm3 (0.0-0.1); Basophils Percent Auto 0.6 % (0.2-1.2); Eosinophils Absolute Auto 0.1 K/mm3 (0-0.3); Eosinophils Percent Auto 0.7 % (0-4.4); Hematocrit 30.4 % (37.0-47.0); Hemoglobin 9.5 g/dL (12.0-15.0); Immature Granulocyte Absolute 0.02 K/mm3 (0.00-0.031); Immature Granulocyte Percent A 0.2 % (0-0.5); Lymphocytes Absolute Auto 1.51 K/mm3 (0.9-3.2); Lymphocytes Percent Auto 18.4 % (18.3-44.2); Mean Corpuscular HGB Conc 31.3 g/dl (32-36); Mean Corpuscular Hemoglobin 32.8 pg (26-34); Mean Corpuscular Volume 104.8 fl (80-100); Mean Platelet Volume 9.4 fl (7.4-10.4); Monocytes Absolute Auto 0.9 K/mm3 (0.1-0.6); Monocytes Percent Auto 11.1 % (2.6-8.5); Neutrophils Absolute Auto 5.7 K/mm3 (1.3-6.7); Platelet Count Result 489 k/mm3 (150-375); Red Cell Distribution Width 15.1 % (11.5-14.5); White Blood Count 8.2 K/mm3 (4.5-10.0)
[2025-02-03 06:35] LABS: Alanine Aminotransferase 24 U/L (6-35); Albumin Level 3.1 g/dL (3.5-5.1); Alkaline Phosphatase 62 U/L (38-126); Anion Gap 7 mmol/L (4-12); Aspartate Amino Transferase 27 U/L (14-36); Bilirubin,Total 0.4 mg/dL (0.2-1.3); Blood Urea Nitrogen 7 mg/dL (7-17); Calcium 9.1 mg/dL (8.4-10.2); Carbon Dioxide 25 mmol/L (22-30); Chloride 104 mmol/L (98-107); Estimated CRCL calculation 103 ml/min; Estimated Glomerular Filt Rate > 60; Glucose 108 mg/dL (65-110); Potassium 3.7 mmol/L (3.4-5.0); Sodium 136 mmol/L (137-145); Total Protein 6.6 g/dL (6.3-8.2)
[2025-02-03 07:12] LABS: Glucose Point of Care 150 mg/dl (65-105)
[2025-02-03 08:51] LABS: Glucose Point of Care 109 mg/dl (65-105)
--- NOTE | 2025-02-03 09:20 | P.PNPL_ITS ---
Progress Note: A&P Assessment and Plan (1) Influenza A: Code(s): J10.1 - Influenza due to other identified influenza virus with other respiratory manifestations Status: Acute Assessment and Plan: Patient presented on 01/18/2025 with influenza a pneumonia, Staph aureus bacteremia and pneumonia. Patient was treated with Tamiflu on 01/18, 01/21 and 01/22. 01/28/25: Plan: would not entertain any additional Tamiflu at this time. 01/30/25; she has completed Tamiflu. (2) PNA (pneumonia): Code(s): J18.9 - Pneumonia, unspecified organism Status: Acute Assessment and Plan: Patient with no underlying lung disease. She has an unspecified autoimmune disease takes prednisone 1 time a year last use was 3 years ago. History of recurrent bronchitis but denies asthma or COPD. Blood cultures grew out Staph aureus sensitive to everything except tetracycline and sputum culture on 01/19/2025 grew out Staph aureus sensitive to everything except tetracycline. started on vancomycin and cefepime and doxycycline on 01/18 2025. Patient was switched to Ancef on 01/21/2025. Repeat blood cultures on 01/20/2025 negative x2. patient became afebrile on 01/23/2025. patient treated with Solu-Medrol 01/23 and 01/24. She had increased oxygen requirements on 01/25/2014 and was escalated from Ancef to meropenem and vancomycin (01/23 through 01/26). Currently the patient is on meropenem only (01/23 started). Patient had a CT scan of the chest that shows a cavity in the lingula, right middle lobe and possibly cavities in the consolidated area of the right lower lobe. There dense consolidations in the bases bilaterally and diffuse patchy infiltrates throughout the lungs. Linezolid added 01/28/25. Plan: patient with post influenza staph aureus pneumonia and bacteremia. she has a development of new cavities in her lungs bilaterally. I will send a QuantiFERON gold. I have discussed with ID pharmacy and patient should have been adequately covered for her Staph aureus since 01/18/2025, day 10. is unclear when these cavities developed after the CT scan on 01/18/2025. Will perform PEPITO to exclude endocarditis. I reviewed the MRI of the spine with Radi ology and there is no evidence of osteomyelitis, diskitis or spinal abscess. Will continue meropenem and start linezolid today. CT scan of the chest with dense consolidation in the bases and new lingula and right middle lobe cavities. 01/29/2025: Overall the patient denies any rest shortness of breath. She does desaturate when she walks to the chair. She has severe coughing paroxysms and sometimes coughs for 45 minutes that causes chest pain. She says occasionally she hears herself wheezing. Currently she is on 2 L nasal cannula saturations 93%. She has been afebrile since 01/23. Her white blood cell count is 11.3, creatinine is 0.51. Her BNP is 224. Her procalcitonin has improved from 3.6 on 01/21/2025 to 0.1 today. Her CRP has improved from 17.4 on 01/24/2025 to 4.8 today. Plan: patient is afebrile, improved procalcitonin, improved leukocytosis, improved CRP. Patient should have been adequately covered for her Staph aureus since 01/18/2025, day 11. Continue meropenem, started 6, day 7 and linezolid started 01/28, day 2. Patient to have repeat swallow study and QuantiFERON gold result prior to PEPITO to exclude endocarditis. goal saturation 90-94%, wean as tolerated. Discussed with family in the room, Dr. Geronimo. will follow with you. Later in day failed swallow study and dobbhoff placed. 01/30/25; she is on room air, afebrile, coughing less intensely with green secretions. I added Cornet valve today to help with clearance of secretions. QuantiFERON gold is not back yet. White blood cell count is now normal 8.9. No fever. Continue meropenem day 8 started 14; continue linezolid day 3 started 01/28. She may need a PICC line to complete antibiotics for cavitary pneumonia. 01/31/25; WBC lower 7.4, no fever; improved airway clearance with Cornet valve, afebrile. Continue meropenem day 9 started 01/23; continue linezolid day 4 started 01/28. 02/01/2025: Patient tells me she is feeling better each day. She has no rest shortness of breath. Minimal exertional shortness of breath. Cough is slowly in better with green to yellow phlegm. No hemoptysis. She is afebrile. Currently she is on room air with saturations 94-95%. White blood cell count 8.0, creatinine 0.52, procalcitonin remains low at 0.1. CRP has improved from 4.8 on 01/29/2025 to a value of 3.2 today. Chest x-ray shows minimal improvement left lower lobe, same right lower lobe infiltrate. She is positive 1.1 L since admission and her weight today is 64 kg. Plan: Patient is improving,patient is afebrile, low procalcitonin, no leukocytosis, improved CRP, chest x-ray with bibasilar infiltrates with improved aeration in the left base.. Patient should have been adequately covered for her Staph aureus since 01/18/2025, day 15. Status post meropenem, started 01/23, day 10 and linezolid started 01/28, day 5. will change the patient to Augmentin 875 per tube t.i.d. starting today. Patient is perform a bedside swallowing exercises and to have repeat swallow study 02/02and QuantiFERON gold result prior to PEPITO to exclude endocarditis. goal saturation 90-94%, wean as tolerated. 02/02/25: Continues to improve each day. No rest shortness of breath. Patient ambulated in the hallway with her ankle brace and had no dyspnea on exertion. She is on room air with saturations 94%. She is afebrile. White blood cell count 8.3, creatinine 0.49. Plan: Patient on Augmentin 875 per tube t.i.d., day 16 staph aureus coverage. Patient have repeat swallow today. QuantiFERON gold test still pending and awaiting for this result prior to PEPITO to exclude endocarditis. 02/03/2025. Patient tells me she is breathing good back at her baseline. She is walking the hallways. She has a persistent cough. She is afebrile. When I enter the room she is on 1 L saturations 95%. I decreased her to room air and after 11 minutes her saturations were 94%. White blood cell count 8.2, creatinine 0.45, her weight today 62.3. QuantiFERON gold pending and if negative will perform PEPITO. From a pulmonary perspective patient can be discharged on these pulmonary medicines: Augmentin 875-125 at 1 tablet t.i.d. through 02/07/2025 Mucinex 1200 mg b.i.d. p.r.n. congestion Cornet flutter valve Q 2-4 hours while awake. Patient to follow-up in the Pulmonary Clinic in 3 weeks. I gave her our business card and informed our crop quantitative geneticist. Will plan to repeat CT scan on 03/11/2025 for 6 week follow-up of the cavities. Discussed with family in the room, Dr. Colon. Will sign off, call with questions. Subjective Date/time seen: 02/03/25 09:20 Interval history: 01/27/2025: This is a new pulmonary consult for influenza a pneumonia and hypoxemia. 54-year-old with a history of diabetes, polycystic ovarian syndrome, Raynaud's, Sjogren's, spinal stenosis, DJD, mouth sores and an unspecified autoimmune disease. Patient seen a protective services officer from [place] in an out reach Clinic in [facility] and was diagnosed with a nonspecific autoimmune disease. She takes prednisone bursts for about a week every year. Her last use was approximately 3 years ago. Patient denies any history of childhood asthma, COPD but has had recurrent bronchitis episodes approximately once a year the last of which was 07/2020 for which she took antibiotics for 1 week and made a full recovery. Patient was at her baseline approximately 3 weeks ago and says she can walk 2 to 2-1/2 miles over 45-60 minutes with no respiratory limitations. She has no respiratory limitations in her activities of daily living. She is a never smoker and has no occupational exposures. Patient presented to the hospital on 01/18/2025 with shortness of breath, weakness and fatigue after she returned from a cruise [facility], [facility] and [place] on 01/08/2025. On 01/14 the patient developed a cough with worsening shortness of breath. She lost her appetite and stopped eating or drinking on 01/16/2025. She developed shortness of breath on 01/18/2025 but did not want to go to a hospital in [place] so she flew home and family brought her straight from the airport to [facility]. She was tachypneic and extremely weak and was intubated. White blood cell count 10.3, 23% bands, patient was started on cefepime to, doxycycline and vancomycin for septic shock. She was started on Tamiflu in the emergency department. Patient received Tamiflu on 01/18, 01/21 and 01/22. Blood cultures grew out Staph aureus sensitive to everything except tetracycline and sputum culture on 01/19/2025 grew out Staph aureus sensitive to everything except tetracycline. Patient was switched to Ancef. Repeat blood cultures on 01/21/2020 5- x2. patient became afebrile on 01/23/2025. She had increased oxygen requirements on 01/25/2014 and was escalated from Ancef to meropenem and vancomycin (01/23 through 01/26). Currently the patient is on meropenem only (01/23 started). Patient had a CT scan of the chest that shows a cavity in the lingula, right middle lobe and possibly cavities in the consolidated area of the right lower lobe. There dense consolidations in the bases bilaterally and diffuse patchy infiltrates throughout the lungs. Linezolid added 01/28/25. 01/28/2025: Patient complains of a dry cough that has persisted since she was extubated on 01/25. She denies fever but feels warm with no chills or rigors. She has no rest shortness of breath. Currently she is on 3 L with saturations 92-96%. She can do incentive spirometry and 1000 mL but this does provoke a cough. Her last fever was 614 at 6:38 a.m.. White blood cell count 16.4, creatinine 0.49, last CRP was 17.4 decreased from 45 on admission. Last procalcitonin is 3.6, decreased from a peak of 12.5 on 01/19/2025. Patient developed a right foot drop has a history of chronic back pain. CT scan of the chest with dense consolidation in the bases and new lingula and right middle lobe cavities. 01/28/25 01/29/2025: Overall the patient denies any rest shortness of breath. She does desaturate when she walks to the chair. She has severe coughing paroxysms and sometimes coughs for 45 minutes that causes chest pain. She says occasionally she hears herself wheezing. Currently she is on 2 L nasal cannula saturations 93%. She has been afebrile since 01/23. Her white blood cell count is 11.3, creatinine is 0.51. Her BNP is 224. Her procalcitonin has improved from 3.6 on 01/21/2025 to 0.1 today. Her CRP has improved from 17.4 on 01/24/2025 to 4.8 today. 01/30/2025; in-patient hospital visit; Patient was seen January 30 at 18:30. and a daughter are present. She is on room air since yesterday, dropped a little overnight, sat in the chair from 9 am until 4 pm today. She is having green secretions, wants to try Cornet valve. She is using Incentive spirometer. Dobbhoff is in place. She is feeling better, cough is less intense. White blood cell count is normal today 8.9 down from 11.3. 01/31/2025; Daughters are present. She was up in a chair for several hours. When walking to bathroom, had increased cough and sputum. The Cornet valve is helping clear green secretions, and she is using IS, gets this ti 1.5 L, excellent. She remains on room air. Tolerating Dobbhoff tube feeds. Will have swallow study repeated soon. WBC lower 7.4. 02/01/2025: Patient tells me she is feeling better each day. She has no rest shortness of breath. Minimal exertional shortness of breath. Cough is slowly in better with green to yellow phlegm. No hemoptysis. She is afebrile. Currently she is on room air with saturations 94-95%. White blood cell count 8.0, creatinine 0.52, procalcitonin remains low at 0.1. CRP has improved from 4.8 on 01/29/2025 to a value of 3.2 today. Chest x-ray shows minimal improvement left lower lobe, same right lower lobe infiltrate. She is positive 1.1 L since admission and her weight today is 64 kg. 6/24/25: Continues to improve each day. No rest shortness of breath. Patient ambulated in the hallway with her ankle brace and had no dyspnea on exertion. S he is on room air with saturations 94%. She is afebrile. White blood cell count 8.3, creatinine 0.49. Later in the day patient passed her modified barium swallow and Dobbhoff was removed. 02/03/2025. Patient tells me she is breathing good back at her baseline. She is walking the hallways. She has a persistent cough. She is afebrile. When I enter the room she is on 1 L saturations 95%. I decreased her to room air and after 11 minutes her saturations were 94%. White blood cell count 8.2, creatinine 0.45, her weight today 62.3. DATA: 01/28/25: CLINICAL INDICATION: Shortness of breath, pneumonia suspected clinically COMPARISON: 01/18/2025 Reference is made to multiple plain film evaluations of the chest dated 01/26/2025 and dating back to 01/20/2025. TECHNIQUE: Multiple contiguous axial images of the chest was performed without the administration of intravenous contrast. This CT examination was performed utilizing dose reduction techniques. DLP: 124 mGy-cm FINDINGS/OBSERVATIONS: Interval extubation and removal of the orogastric tube with compared with previous study. No LUNG: Bibasilar consolidation, right greater than left. Patchy groundglass opacification within the bilateral pulmonary tomi, right greater than left. Cavitation is now identified within the lingula, with an intracavitary nodule. Cavitation is also now identified within the right middle lobe. Cavitation is an interval change from previous examination. HEART: The heart is of normal size, without pericardial effusion. MEDIASTINUM: Limited evaluation without intravenous contrast. SOFT TISSUES OF THE CHEST: Unremarkable. BONES OF THE CHEST: No acute fracture. No lytic or blastic lesions are identified. UPPER ABDOMEN: Gaseous distention of the stomach. The gallbladder is surgically absent. IMPRESSION: Interval progression of multifocal consolidation within the bilateral lung martini, now demonstrating cavitation with intracavitary nodule in the lingula for which the differential diagnosis is broad but includes reactivated tuberculosis, aspergillosis, autoimmune etiology and infection versus septic pulmonary emboli (thought to be less likely secondary to cavitary distribution) 01/19/2025: Echo Summary 1. Left ventricular chamber dimension is normal. 2. Left ventricular systolic function is normal, estimated at 60-65. 3. The left ventricular diastolic function is grade I diastolic dysfunction. 4. Right ventricular chamber dimension is mildly enlarged. 5. Right ventricular systolic function is normal. 6. Right atrial chamber dimension is mildly enlarged. 7. There is mild to moderate tricuspid valve regurgitation. Right Ventricle Right ventricular chamber dimension is mildly enlarged. Right ventricular systolic function is normal. Left Atria Left atrial chamber dimension is normal. Right Atria Right atrial chamber dimension is mildly enlarged. Atrial Septum Intact interatrial septum visualized by color flow imaging. RVSP 64. 01/27/2025 cervical, thoracic, lumbar spine MRI: IMPRESSION: 1. . 20 degrees lumbar dextroscoliosis with severe spondylosis. IMPRESSION: 1. 15 degrees thoracic levoscoliosis with mild spondylosis. 2. Consolidation in the bilateral lower lobes which could represent atelectasis or pneumonia. IMPRESSION: 1. Mild cervical spondylosis. 01/18/2025: CTA chest PE protocol Ordering provider: Maxi Macedo MD History: 54 years Female with . sob . Comparison: None. Findings: Endotracheal tube and nasogastric tube are noted. PULMONARY ARTERIES: No pulmonary embolus. VISUALIZED THORACIC INLET: Normal. MEDIASTINUM: Aorta/coronary arteries: Mild atheromatous disease. Heart/other: The heart is not enlarged. Lymph nodes: No mediastinal or hilar adenopathy. Small prevascular lymph nodes are noted. LUNGS: Bilateral lower lobe and lingular pneumonia is noted. Pneumonia in the right upper lobe posteriorly is also seen. Minimal consolidation also seen in the middle lobe. No pulmonary nodules or masses. No effusions. No pneumothorax. VISUALIZED UPPER ABDOMEN: Fat infiltration of the liver. Status post cholecystectomy. Otherwise, the visualized upper abdomen is normal. MUSCULOSKELETAL: Soft tissues: The superficial soft tissues are normal. Bones: Age appropriate degenerative changes of the spine. IMPRESSION: 1. No pulmonary embolism. 2. Bilateral pneumonia in the lower lobes. Pneumonia in the lingula. Minimal changes of pneumonia in the right middle lobe. Pneumonia in the right upper lobe posteriorly. Follow-up to resolution is advised. Review of Systems Review of Systems: All systems reviewed & are unremarkable except as noted in HPI and below Constitutional: Constitutional: Reports no additional constitutional complaints Eyes: Eyes: Reports no additional eye complaints ENT: Reports system reviewed and no additional complaints, except as documented Cardiovascular: Cardiovascular: Reports no additional cardiovascular complaints Respiratory: Respiratory: Reports no additional respiratory complaints Gastrointestinal: Gastrointestinal: Reports no additional gastrointestinal complaints Musculoskeletal: Musculoskeletal: Reports no additional musculoskeletal complaints Neurologic: Reports system reviewed and no additional complaints, except as documented Psychiatric: Psychiatric: Reports no additional psychiatric complaints Endocrine: Endocrine: Reports no additional endocrine complaints Hematologic/Lymphatic: Hematologic/Lymphatic: Reports no additional hematologic/lymphatic complaints Allergic/Immunologic: Allergic/Immunologic: Reports no additional allergic/immunologic complaints Exam Const: General: cooperative, healthy appearing and comfortable Orientation/consciousness: oriented to person, oriented to place and oriented to time Other: no respiratory distress on Room Air HENMT: Head: normal to inspection Ears: hearing grossly normal bilaterally Eyes: General: appearance normal, both eyes and all related structures Neck: Neck: normal visual inspection Chest: Chest palpation & inspection: normal inspection of the chest Resp: Effort & Inspection: normal respiratory effort and able to speak in complete sentences Auscultation: crackles, no rales, no rhonchi, no wheezes and lung sounds not diminished Other: Few diffuse crackles bases Cardio: Jugular venous distension: no JVD GI: Inspection: normal to inspection Skin: General skin exam: normal color Neuro: General: oriented to person, oriented to place and oriented to time Extrem: General: normal to inspection Other: Inability to raise right foot. Loss of sensation top of foot. She has a soft boot on the right foot to support her footdrop. Psych: Appearance: grossly normal Objective Data Vital Signs Vital Signs: Vital Signs - 24 hr 02/02/25 10:36 02/02/25 11:02 02/02/25 15:25 Temperature 36.7 C Pulse Rate 117 H 117 H 108 H Respiratory Rate 16 20 Blood Pressure 113/57 L Pulse Oximetry 98 Oxygen Delivery Oxygen Flow Rate 02/02/25 16:00 02/02/25 19:48 02/02/25 19:48 Temperature Pulse Rate 113 H 100 Respiratory Rate 22 H Blood Pressure Pulse Oximetry 96 Oxygen Delivery Room Air Oxygen Flow Rate 02/02/25 19:54 02/02/25 20:00 02/02/25 20:00 Temperature Pulse Rate 98 112 H Respiratory Rate 22 H Blood Pressure Pulse Oximetry Oxygen Delivery Room Air Oxygen Flow Rate 02/02/25 20:56 02/02/25 21:44 02/03/25 00:00 Temperature 36.7 C Pulse Rate 120 H 120 H 103 H Respiratory Rate 18 Blood Pressure 97/63 L Pulse Oximetry 99 Oxygen Delivery Oxygen Flow Rate 02/03/25 02:54 02/03/25 02:57 02/03/25 03:00 Temperature Pulse Rate 83 90 Respiratory Rate 18 18 Blood Pressure Pulse Oximetry 92 Oxygen Delivery Nasal Cannula Oxygen Flow Rate 2 02/03/25 04:00 02/03/25 05:47 02/03/25 08:13 Temperature 36.8 C Pulse Rate 100 102 H Respiratory Rate 18 Blood Pressure 92/64 L Pulse Oximetry 94 91 Oxygen Delivery Room Air Oxygen Flow Rate 02/03/25 08:13 02/03/25 08:20 Temperature Pulse Rate 98 96 Respiratory Rate 16 16 Blood Pressure Pulse Oximetry Oxygen Delivery Oxygen Flow Rate Intake/Output Intake/Output: Intake & Output 01/31/25 02/01/25 02/02/25 02/03/25 23:59 23:59 23:59 23:59 Intake Total 2610 1075 240 250 Output Total 3151 1350 [address] [place] [id number] [phone] Meds/Results Medications: Active Medications Generic Name Dose Route Start Last Admin Trade Name Freq PRN Reason Stop Dose Admin Acetaminophen 650 mg 01/18/25 20:28 01/24/25 08:23 Acetaminophen Elixir 325 Mg/10.15 Ml Udc FEED TUBE 650 mg Q4H PRN Administration Mild Pain (1-3) or Fever Albuterol/Ipratropium 3 ml 01/29/25 14:00 02/03/25 08:12 Ipratropium 0.5 Mg/Albuterol Sulfate 2.5 Mg Ampul.Neb 3 Ml INHALATION 3 ml Q6HRT SESAR Administration Amoxicillin/Clavulanate Potassium 1 tablet 02/02/25 14:00 02/03/25 05:41 Amoxicillin/Clavulanate K 875-125 Mg Tab PO 1 tablet Q8HR SESAR Administration Atorvastatin Calcium 20 mg 01/19/25 18:00 02/02/25 17:57 Atorvastatin 20 Mg Tablet PO 20 mg QPM SESAR Administration Benzocaine/Butamben/Tetracaine HCl 1 spray 01/29/25 18:22 01/29/25 22:41 Benzocaine/Tetracaine [place] (*Sp) 56 Ml Aerosol MUCOUS MEM 1 spray Q4HR PRN Administration pain Benzonatate 200 mg 01/29/25 13:00 02/02/25 17:46 Benzonatate 100 Mg Capsule PO 200 mg TID SESAR Administration Dextrose 12.5 gm 01/27/25 05:42 Dextrose 50% 25 Gm/50 Ml Syringe IV PUSH PRN PRN Hypoglycemia Protocol Enoxaparin Sodium 40 mg 01/20/25 09:00 02/02/25 11:01 Enoxaparin 40 Mg/0.4 Ml Syringe SUB-Q 40 mg DAILY SESAR Administration Estradiol 1 mg 01/19/25 09:00 02/02/25 11:02 Estradiol 1 Mg Tablet PO 1 mg DAILY SESAR Administration Glucagon 1 mg 01/27/25 05:42 Glucagon For Inj 1 Mg Vial IM PRN PRN Hypoglycemia Protocol Glucose 15 gm 01/27/25 05:42 Glucose Oral Gel 15 Gm Of Glucse In 37.5 Gm Tube PO PRN PRN Hypoglycemia Protocol Guaifenesin 400 mg 01/29/25 21:00 02/03/25 05:41 Guaifenesin 200 Mg/10 Ml Udc FEED TUBE 400 mg Q4HR SESAR Administration Dextrose 1,000 mls @ 100 mls/hr 01/27/25 05:42 Dextrose 5% 1,000 Ml IVPB PRN PRN Hypoglycemia Protocol Insulin Aspart 3 - 6 units 01/27/25 06:30 02/03/25 07:58 Insulin Aspart (*Bkc) 100 Units/Ml SUB-Q Not Given ACHS SESAR Protocol Insulin Glargine 10 units 01/25/25 21:00 02/02/25 21:46 Insulin Glargine (*Bkc) 100 Units/Ml SUB-Q 10 units HS SESAR Administration Ipratropium [place] 0.5 mg 01/26/25 07:34 Ipratropium Br 0.02% Inh Soln 0.5 Mg/2.5 Ml Vial INHALATION Q6HRT PRN Wheezing Levalbuterol HCl 0.63 mg 01/26/25 07:34 01/26/25 22:37 Levalbuterol Neb 1.25 Mg/3 Ml INHALATION 0.63 mg Q6HRT PRN Administration Wheezing Metoprolol Tartrate 25 mg 01/26/25 21:45 02/02/25 21:44 Metoprolol Tartrate 25 Mg Tablet PO 25 mg Q12HR SESAR Administration Ondansetron HCl 4 mg 01/19/25 01:20 Ondansetron Inj 4 Mg/2 Ml Vial IV PUSH Q4H PRN Nausea And Vomiting Pantoprazole Sodium 40 mg 01/28/25 09:00 02/02/25 11:05 Pantoprazole 40 Mg Tablet PO 40 mg QAM SESAR Administration Polyethylene Glycol 17 gm 01/24/25 10:15 Polyethylene Glycol 3350 17 Gm Powd.Pack PO QAM PRN Constipation Senna/Docusate Sodium 1 tab 01/24/25 10:20 02/02/25 21:44 Senna/Docusate Sodium Tablet PO Not Given Q12HR SESAR Spironolactone 100 mg 01/19/25 09:00 Spironolactone 50 Mg Tablet PO Q12HR SESAR Radiology Results: ITS Impressions Chest CTA 01/18/25 15:25 IMPRESSION: 1. No pulmonary embolism. 2. Bilateral pneumonia in the lower lobes. Pneumonia in the lingula. Minimal changes of pneumonia in the right middle lobe. Pneumonia in the right upper lobe posteriorly. Follow-up to resolution is advised. Head CT 01/22/25 10:18 Impression: No significant abnormality seen. Chest CT 01/28/25 15:29 IMPRESSION: Interval progression of multifocal consolidation within the bilateral lung martini, now demonstrating cavitation with intracavitary nodule in the lingula for which the differential diagnosis is broad but includes reactivated tuberculosis, aspergillosis, autoimmune etiology and infection versus septic pulmonary emboli (thought to be less likely secondary to cavitary distribution) Chest X-Ray 02/01/25 09:16 IMPRESSION: Bibasilar and perihilar pneumonia. No significant change from previous examination. Cervical Spine MRI 02/01/25 13:22 IMPRESSION: Posterior disc osteophyte complex causing mild spinal canal stenosis at C4-5 and C5-6. Thoracic Spine MRI 02/01/25 13:27 IMPRESSION: MRI of the thoracic spine is within normal limits for age. Lumbar Spine MRI 02/01/25 13:32 IMPRESSION: Asymmetric disc bulges at L2-3 and L3-4 along with facet arthropathy causing mild spinal canal stenosis and mild left neural foraminal narrowing. Correlate with clinical distribution of symptoms. Modified Barium Swallow 02/02/25 09:52 IMPRESSION: Pharyngeal dysphagia with laryngeal penetration without aspiration. Please correlate with speech pathologist findings and specific feeding recommendations. Labs Labs: Laboratory Results - last 24 hr 02/02/25 02/02/25 02/02/25 10:51 17:22 20:58 WBC RBC Hgb Hct MCV MCH MCHC RDW Plt Count MPV Immature Gran % (Auto) Neut % (Auto) Lymph % (Auto) [place] % (Auto) Eos % (Auto) Baso % (Auto) Lymph # (Auto) [place] # (Auto) Eos # (Auto) Baso # (Auto) Abs Immat Gran (auto) Absolute Neuts (auto) Absolute Nucleated RBC Nucleated RBC % Sodium Potassium Chloride Carbon Dioxide Anion Gap BUN Creatinine Estim Creat Clear Calc Estimated GFR Glucose POC Capillary Glucose 161 H 122 H 150 H Calcium Magnesium Total Bilirubin AST ALT Alkaline Phosphatase Total Protein Albumin 02/03/25 02/03/25 05:35 08:49 WBC 8.2 RBC 2.90 L Hgb 9.5 L Hct 30.4 L MCV 104.8 H MCH 32.8 MCHC 31.3 L RDW 15.1 H Plt Count 489 H MPV 9.4 Immature Gran % (Auto) 0.2 Neut % (Auto) 69.0 Lymph % (Auto) 18.4 [place] % (Auto) 11.1 H Eos % (Auto) 0.7 Baso % (Auto) 0.6 Lymph # (Auto) 1.51 [place] # (Auto) 0.9 H Eos # (Auto) 0.1 Baso # (Auto) 0.1 Abs Immat Gran (auto) 0.02 Absolute Neuts (auto) 5.7 Absolute Nucleated RBC 0.000 Nucleated RBC % 0.0 Sodium 136 L Potassium 3.7 Chloride 104 Carbon Dioxide 25 Anion Gap 7 BUN 7 Creatinine 0.45 L Estim Creat Clear Calc 103 Estimated GFR > 60 Glucose 108 POC Capillary Glucose 109 H Calcium 9.1 Magnesium 2.0 Total Bilirubin 0.4 AST 27 ALT 24 Alkaline Phosphatase 62 Total Protein 6.6 Albumin 3.1 L
[2025-02-03] MEDS: METOPROLOL TARTRATE 25 MG TABLET PO ×2 (09:36→21:38)
[2025-02-03] MEDS: PANTOPRAZOLE 40 MG TABLET PO (09:36)
[2025-02-03] MEDS: ENOXAPARIN 40 MG/0.4 ML SYRINGE SUB-Q (09:36)
[2025-02-03] MEDS: estradioL 1 MG TABLET PO (09:36)
[2025-02-03] MEDS: BENZONATATE 100 MG CAPSULE 200 MG PO ×3 (09:36→17:18)
[2025-02-03] MEDS: guaiFENesin 12 HR 600 MG TABCR 1200 MG PO ×2 (09:40→21:38)
[2025-02-03 13:22] LABS: Glucose Point of Care 100 mg/dl (65-105)
[2025-02-03 14:20] LABS: NIL 0.01 IU/mL; Quantiferon TB Plus, 1T NEGATIVE (NEGATIVE); TB2-NIL 0.01 IU/mL
--- NOTE | 2025-02-03 15:32 | PM.IMPN ---
Progress Note: A&P Assessment and Plan (1) Septic shock: Code(s): A41.9 - Sepsis, unspecified organism; R65.21 - Severe sepsis with septic shock Status: Acute Assessment and Plan: Patient presented with bilateral lower lobe infiltrates, pneumonia, hypotension overnight requiring central line placement on 01/19, and Levophed -01/20: currently off all pressors -01/18: Blood and sputum cultures growing MSSA -01/20 and 01/23: Repeat blood cultures negative so far -status post doxycycline for 5 days -01/21: started on Cefazolin and DC cefepime, vancomycin (01/21) -patient received a course of Solu-Medrol for 4 doses, wheezing has improved -01/23: Patient again febrile with a T-max of 101.3?, thick yellow colored secretions from the ET tube, white blood cell count trending up. FiO2 requirements going up, Will repeat blood cultures, -01/23: DC cefazolin. Started vancomycin and meropenem (01/23) Fever curve much improved, patient is afebrile, improvement in WBC 1625: Echocardiogram Summary 1. Left ventricular chamber dimension is normal. 2. Left ventricular systolic function is normal, estimated at 60-65. 3. The left ventricular diastolic function is grade I diastolic dysfunction. 4. Right ventricular chamber dimension is mildly enlarged. 5. Right ventricular systolic function is normal. 6. Right atrial chamber dimension is mildly enlarged. 7. There is mild to moderate tricuspid valve regurgitation. (2) Acute hypoxic respiratory failure: Code(s): J96.01 - Acute respiratory failure with hypoxia Status: Acute Assessment and Plan: 01/18: Patient presented the ED with shortness of breath, weakness, diabetic ketoacidosis, pneumonia. Intubated in the ED for airway protection and hypoxia 01/25 extubated -chest x-ray and ABGs reviewed, - CTA chest on admission showed bilateral lower lobe pneumonia -completed Tamiflu -01/23: bilateral diffuse wheezing, continue bronchodilators and received a course Solu-Medrol -wheezing which improved this morning, Continue supplemental oxygen Incentive spirometry -01/28: CT chest shows cavitary lesions. -continue meropenem -started linezolid 01/15: CTA chest IMPRESSION: 1. No pulmonary embolism. 2. Bilateral pneumonia in the lower lobes. Pneumonia in the lingula. Minimal changes of pneumonia in the right middle lobe. Pneumonia in the right upper lobe posteriorly. Follow-up to resolution is advised. (3) PNA (pneumonia): Code(s): J18.9 - Pneumonia, unspecified organism Status: Acute Assessment and Plan: 01/28/2025 CT shows a cavitary lesions in lung s/p meropenem and linezolid awaiting QuantiFERON test for PEPITO exam Continue Augmentin 01/28: CT Chest:Interval progression of multifocal consolidation within the bilateral lung martini, now demonstrating cavitation with intracavitary nodule in the lingula for which the differential diagnosis is broad but includes reactivated tuberculosis, aspergillosis, autoimmune etiology and infection versus septic pulmonary emboli (thought to be less likely secondary to cavitary distribution) (4) DKA (diabetic ketoacidosis): Code(s): E11.10 - Type 2 diabetes mellitus with ketoacidosis without coma Status: Acute Assessment and Plan: Patient presented with elevated beta hydroxybutyrate, anion gap metabolic acidosis, UA showed ketones, glucose -likely euglycemic diabetic ketoacidosis as patient was still taking Jardiance and metformin -this given 3 L IV fluids since admission, started on insulin infusion per DKA protocol -overnight patient was transition to long-acting insulin Lantus, and sliding scale insulin with Accu-Chek -continue to monitor -blood sugars in stable, continue Accu-Cheks, sliding scale insulin and Lantus (5) Flu: Code(s): J11.1 - Influenza due to unidentified influenza virus with other respiratory manifestations Status: Acute Assessment and Plan: Patient was tested positive for influenza A -status post course of Tamiflu (6) Chronic low blood pressure: Code(s): I95.89 - Other hypotension Status: Acute Assessment and Plan: Patient has chronic low blood pressures, according the daughter systolic blood pressures range in the 80s to 90s -blood pressures remain stable off pressors (7) Sinus tachycardia: Code(s): R00.0 - Tachycardia, unspecified Status: Acute Assessment and Plan: Has a history of chronic sinus tachycardia for which she is on metoprolol at home, -patient's heart rate is in the 100-110 which is her baseline -01/23: Restarted home metoprolol Change bronchodilators p.r.n. Check thyroid function test (8) PCOS (polycystic ovarian syndrome): Code(s): E28.2 - Polycystic ovarian syndrome Status: Acute Assessment and Plan: Hold spironolactone (9) Hyperlipidemia: Code(s): E78.5 - Hyperlipidemia, unspecified Status: Acute Assessment and Plan: continue Atorvastatin (10) Electrolyte imbalance: Code(s): E87.8 - Other disorders of electrolyte and fluid balance, not elsewhere classified Status: Acute Assessment and Plan: Replace potassium (11) Encephalopathy: Code(s): G93.40 - Encephalopathy, unspecified Status: Acute Assessment and Plan: resolved (12) Right foot drop: Code(s): M21.371 - Foot drop, right foot Status: Acute Assessment and Plan: Acute finding Reviewed MRI cervical, thoracic and lumbar Evidence of New cavitary lesions in lung Will repeat MRI lumbar needed Dr. Domingo reviewed with MRI with Radiology to definitely rule out osteomyelitis, diskitis or spinal abscess Consulted neurology and Neurosurgery Evidence of bowel incontinence Continue AFO EMG after Neurology recommendation No neurosurgery needed as MRI did not showed disc herniation or cord compression PT OT Follow up with neurology for EMG and NCS (13) Dysphagia: Code(s): R13.10 - Dysphagia, unspecified Status: Acute Assessment and Plan: 0 01/29 patient failed swallow study cleared and now tolerating diet Dietitian following Plan MSSA bacteremia blood culture reviewed repeat pending Awaitign Quatiferon test for PEPITO exam Continue High dose Augmentin Possible PEPITO today per cards DVT prophylaxis: Lovenox Code Status: Full code Subjective Date/time seen: 02/03/25 15:32 Interval history: Comfortable at bedside Review of Systems Review of Systems: All systems reviewed & are unremarkable except as noted in HPI and below (HPI) ROS unobtainable: Yes unobtainable due to endotracheal tube, unobtainable due to medical condition and unobtainable due to mental status Exam Narrative: General: Awake alert in no acute distress HEENT:? Pupils small and reactive bilaterally, sclera is clear, Neck:? Supple, right IJ central line in place Respiratory:? Coarse breath sounds bilaterally, decreased at bases, bilateral wheezing, no tachypnea use of accessory muscles or respiratory distress Cardiac:? Sinus tachycardia, S1-S2 was normal, no murmurs Abdomen:? Soft, nontender, nondistended, hypoactive bowel sounds Extremities:? No edema, palpable pedal pulses Neuro:? Intubated, AO x3 follows simple commands in all extremities carries conversation but is little confused and goes tangential when answering questions Skin:? No lesions noted Psych:? Normal speech and affect Objective Data Vital Signs Vital Signs: Vital Signs - 24 hr 02/02/25 16:00 02/02/25 19:48 02/02/25 19:48 Temperature Pulse Rate 113 H 100 Respiratory Rate 22 H Blood Pressure Pulse Oximetry 96 Oxygen Delivery Room Air Oxygen Flow Rate 02/02/25 19:54 02/02/25 20:00 02/02/25 20:00 Temperature Pulse Rate 98 112 H Respiratory Rate 22 H Blood Pressure Pulse Oximetry Oxygen Delivery Room Air Oxygen Flow Rate 02/02/25 20:56 02/02/25 21:44 02/03/25 00:00 Temperature 98.1 F Pulse Rate 120 H 120 H 103 H Respiratory Rate 18 Blood Pressure 97/63 L Pulse Oximetry 99 Oxygen Delivery Oxygen Flow Rate 02/03/25 02:54 02/03/25 02:57 02/03/25 03:00 Temperature Pulse Rate 83 90 Respiratory Rate 18 18 Blood Pressure Pulse Oximetry 92 Oxygen Delivery Nasal Cannula Oxygen Flow Rate 2 02/03/25 04:00 02/03/25 05:47 02/03/25 08:05 Temperature 98.2 F Pulse Rate 100 102 H 102 H Respiratory Rate 18 Blood Pressure 92/64 L Pulse Oximetry 94 Oxygen Delivery Oxygen Flow Rate 02/03/25 08:13 02/03/25 08:13 02/03/25 08:20 Temperature Pulse Rate 98 96 Respiratory Rate 16 16 Blood Pressure Pulse Oximetry 91 Oxygen Delivery Room Air Oxygen Flow Rate 02/03/25 09:30 02/03/25 09:36 02/03/25 12:05 Temperature Pulse Rate 96 101 H Respiratory Rate Blood Pressure Pulse Oximetry Oxygen Delivery Room Air Oxygen Flow Rate 02/03/25 14:01 02/03/25 14:12 Temperature Pulse Rate 84 103 H Respiratory Rate 16 16 Blood Pressure Pulse Oximetry Oxygen Delivery Oxygen Flow Rate Intake/Output Intake/Output: Intake & Output 01/31/25 02/01/25 02/02/25 02/03/25 23:59 23:59 23:59 23:59 Intake Total 2610 1075 240 250 Output Total 3151 1350 2600 [facility] -166 [phone] -[id number] Meds/Results Medications: Active Medications Generic Name Dose Route Start Last Admin Trade Name Freq PRN Reason Stop Dose Admin Acetaminophen 650 mg 01/18/25 20:28 01/24/25 08:23 Acetaminophen Elixir 325 Mg/10.15 Ml Udc FEED TUBE 650 mg Q4H PRN Administration Mild Pain (1-3) or Fever Albuterol/Ipratropium 3 ml 01/29/25 14:00 02/03/25 14:01 Ipratropium 0.5 Mg/Albuterol Sulfate 2.5 Mg Ampul.Neb 3 Ml INHALATION 3 ml Q6HRT SESAR Administration Amoxicillin/Clavulanate Potassium 1 tablet 02/02/25 14:00 02/03/25 14:43 Amoxicillin/Clavulanate K 875-125 Mg Tab PO 1 tablet Q8HR SESAR Administration Atorvastatin Calcium 20 mg 01/19/25 18:00 02/02/25 17:57 Atorvastatin 20 Mg Tablet PO 20 mg QPM SESAR Administration Benzocaine/Butamben/Tetracaine HCl 1 spray 01/29/25 18:22 01/29/25 22:41 Benzocaine/Tetracaine [place] (*Sp) 56 Ml Aerosol MUCOUS MEM 1 spray Q4HR PRN Administration pain Benzonatate 200 mg 01/29/25 13:00 02/03/25 12:54 Benzonatate 100 Mg Capsule PO 200 mg TID SESAR Administration Dextrose 12.5 gm 01/27/25 05:42 Dextrose 50% 25 Gm/50 Ml Syringe IV PUSH PRN PRN Hypoglycemia Protocol Enoxaparin Sodium 40 mg 01/20/25 09:00 02/03/25 09:36 Enoxaparin 40 Mg/0.4 Ml Syringe SUB-Q 40 mg DAILY SESAR Administration Estradiol 1 mg 01/19/25 09:00 02/03/25 09:36 Estradiol 1 Mg Tablet PO 1 mg DAILY SESAR Administration Glucagon 1 mg 01/27/25 05:42 Glucagon For Inj 1 Mg Vial IM PRN PRN Hypoglycemia Protocol Glucose 15 gm 01/27/25 05:42 Glucose Oral Gel 15 Gm Of Glucse In 37.5 Gm Tube PO PRN PRN Hypoglycemia Protocol Guaifenesin 1,200 mg 02/03/25 09:26 02/03/25 09:40 Guaifenesin 12 Hr 600 Mg Tabcr PO 1,200 mg Q12HR SESAR Administration Dextrose 1,000 mls @ 100 mls/hr 01/27/25 05:42 Dextrose 5% 1,000 Ml IVPB PRN PRN Hypoglycemia Protocol Insulin Aspart 3 - 6 units 01/27/25 06:30 02/03/25 14:43 Insulin Aspart (*Bkc) 100 Units/Ml SUB-Q Not Given ACHS SESAR Protocol Insulin Glargine 10 units 01/25/25 21:00 02/02/25 21:46 Insulin Glargine (*Bkc) 100 Units/Ml SUB-Q 10 units HS SESAR Administration Ipratropium [place] 0.5 mg 01/26/25 07:34 Ipratropium Br 0.02% Inh Soln 0.5 Mg/2.5 Ml Vial INHALATION Q6HRT PRN Wheezing Levalbuterol HCl 0.63 mg 01/26/25 07:34 01/26/25 22:37 Levalbuterol Neb 1.25 Mg/3 Ml INHALATION 0.63 mg Q6HRT PRN Administration Wheezing Metoprolol Tartrate 25 mg 01/26/25 21:45 02/03/25 09:36 Metoprolol Tartrate 25 Mg Tablet PO 25 mg Q12HR SESAR Administration Ondansetron HCl 4 mg 01/19/25 01:20 Ondansetron Inj 4 Mg/2 Ml Vial IV PUSH Q4H PRN Nausea And Vomiting Pantoprazole Sodium 40 mg 01/28/25 09:00 02/03/25 09:36 Pantoprazole 40 Mg Tablet PO 40 mg QAM SESAR Administration Polyethylene Glycol 17 gm 01/24/25 10:15 Polyethylene Glycol 3350 17 Gm Powd.Pack PO QAM PRN Constipation Senna/Docusate Sodium 1 tab 01/24/25 10:20 02/03/25 09:37 Senna/Docusate Sodium Tablet PO Not Given Q12HR SESAR Spironolactone 100 mg 01/19/25 09:00 Spironolactone 50 Mg Tablet PO Q12HR [facility] Radiology Results: ITS Impressions Chest CTA 01/18/25 15:25 IMPRESSION: 1. No pulmonary embolism. 2. Bilateral pneumonia in the lower lobes. Pneumonia in the lingula. Minimal changes of pneumonia in the right middle lobe. Pneumonia in the right upper lobe posteriorly. Follow-up to resolution is advised. Head CT 01/22/25 10:18 Impression: No significant abnormality seen. Chest CT 01/28/25 15:29 IMPRESSION: Interval progression of multifocal consolidation within the bilateral lung martini, now demonstrating cavitation with intracavitary nodule in the lingula for which the differential diagnosis is broad but includes reactivated tuberculosis, aspergillosis, autoimmune etiology and infection versus septic pulmonary emboli (thought to be less likely secondary to cavitary distribution) Chest X-Ray 02/01/25 09:16 IMPRESSION: Bibasilar and perihilar pneumonia. No significant change from previous examination. Cervical Spine MRI 02/01/25 13:22 IMPRESSION: Posterior disc osteophyte complex causing mild spinal canal stenosis at C4-5 and C5-6. Thoracic Spine MRI 02/01/25 13:27 IMPRESSION: MRI of the thoracic spine is within normal limits for age. Lumbar Spine MRI 02/01/25 13:32 IMPRESSION: Asymmetric disc bulges at L2-3 and L3-4 along with facet arthropathy causing mild spinal canal stenosis and mild left neural foraminal narrowing. Correlate with clinical distribution of symptoms. Modified Barium Swallow 02/02/25 09:52 IMPRESSION: Pharyngeal dysphagia with laryngeal penetration without aspiration. Please correlate with speech pathologist findings and specific feeding recommendations. Labs Labs: Laboratory Results - last 24 hr 01/29/25 02/02/25 02/02/25 04:26 17:22 20:58 WBC RBC Hgb Hct MCV MCH MCHC RDW Plt Count MPV Immature Gran % (Auto) Neut % (Auto) Lymph % (Auto) [place] % (Auto) Eos % (Auto) Baso % (Auto) Lymph # (Auto) [place] # (Auto) Eos # (Auto) Baso # (Auto) Abs Immat Gran (auto) Absolute Neuts (auto) Absolute Nucleated RBC Nucleated RBC % Sodium Potassium Chloride Carbon Dioxide Anion Gap BUN Creatinine Estim Creat Clear Calc Estimated GFR Glucose POC Capillary Glucose 122 H 150 H Calcium Magnesium Total Bilirubin AST ALT Alkaline Phosphatase Total Protein Albumin TB Test (QFT) Gold Plus Negative TB Test (QFT) Nil 0.01 TB Test Mitogen - Nil 9.74 TB Test Ag - Nil 1 0.00 TB Test Ag - Nil 2 0.01 02/03/25 02/03/25 02/03/25 05:35 08:49 13:17 WBC 8.2 RBC 2.90 L Hgb 9.5 L Hct 30.4 L MCV 104.8 H MCH 32.8 MCHC 31.3 L RDW 15.1 H Plt Count 489 H MPV 9.4 Immature Gran % (Auto) 0.2 Neut % (Auto) 69.0 Lymph % (Auto) 18.4 [place] % (Auto) 11.1 H Eos % (Auto) 0.7 Baso % (Auto) 0.6 Lymph # (Auto) 1.51 [place] # (Auto) 0.9 H Eos # (Auto) 0.1 Baso # (Auto) 0.1 Abs Immat Gran (auto) 0.02 Absolute Neuts (auto) 5.7 Absolute Nucleated RBC 0.000 Nucleated RBC % 0.0 Sodium 136 L Potassium 3.7 Chloride 104 Carbon Dioxide 25 Anion Gap 7 BUN 7 Creatinine 0.45 L Estim Creat Clear Calc 103 Estimated GFR > 60 Glucose 108 POC Capillary Glucose 109 H 100 Calcium 9.1 Magnesium 2.0 Total Bilirubin 0.4 AST 27 ALT 24 Alkaline Phosphatase 62 Total Protein 6.6 Albumin 3.1 L TB Test (QFT) Gold Plus TB Test (QFT) Nil TB Test Mitogen - Nil TB Test Ag - Nil 1 TB Test Ag - Nil 2 Quality VTE Prophylaxis VTE prophylaxis: pharmacologic ordered
[2025-02-03] MEDS: ATORVASTATIN 20 MG TABLET PO (17:18)
[2025-02-03 18:10] LABS: Glucose Point of Care 108 mg/dl (65-105)
[2025-02-03] MEDS: INSULIN GLARGINE (*BKC) 100 UNITS/ML 10 UNITS SUB-Q (21:39)
[2025-02-03] MEDS: SENNA/DOCUSATE SODIUM TABLET 1 TAB PO (21:41)
[2025-02-03 23:12] LABS: Glucose Point of Care 151 mg/dl (65-105)
[2025-02-04] VITALS (19 sets, daily range): BP systolic 92–101; BP diastolic 52–64; PULSE 74–116; RESP 16–20; TEMP 36.6–36.8; O2SAT 92–96
[2025-02-04] MEDS: IPRATROPIUM 0.5 MG/ALBUTEROL SULFATE 2.5 MG AMPUL.NEB 3 ML INHALATION ×4 (03:04→22:01)
[2025-02-04] MEDS: AMOXICILLIN/CLAVULANATE K 875-125 MG TAB 1 TABLET PO ×3 (06:10→21:23)
[2025-02-04 06:38] LABS: Iron 42 ug/dL (37-170)
[2025-02-04 06:47] LABS: Percent Iron Saturation 21 % (20-50)
[2025-02-04 07:37] LABS: Vitamin B12. > 1000.0 pg/mL (239-931)
[2025-02-04 08:07] LABS: Glucose Point of Care 99 mg/dl (65-105)
[2025-02-04] MEDS: estradioL 1 MG TABLET PO (08:42)
[2025-02-04] MEDS: METOPROLOL TARTRATE 25 MG TABLET PO ×2 (08:42→21:22)
[2025-02-04] MEDS: guaiFENesin 12 HR 600 MG TABCR 1200 MG PO ×2 (08:42→21:23)
[2025-02-04] MEDS: BENZONATATE 100 MG CAPSULE 200 MG PO ×3 (08:42→17:52)
[2025-02-04] MEDS: ENOXAPARIN 40 MG/0.4 ML SYRINGE SUB-Q (08:42)
[2025-02-04] MEDS: PANTOPRAZOLE 40 MG TABLET PO (08:43)
[2025-02-04] MEDS: SENNA/DOCUSATE SODIUM TABLET 1 TAB PO ×2 (08:46→21:22)
[2025-02-04] MEDS: ACETAMINOPHEN 325 MG TABLET 650 MG PO ×2 (10:36→17:53)
[2025-02-04 12:03] LABS: Glucose Point of Care 165 mg/dl (65-105)
[2025-02-04] MEDS: BENZOCAINE/TETRACAINE SPRAY (*SP) 56 ML AEROSOL 1 SPRAY MUCOUS MEM (13:54)
--- NOTE | 2025-02-04 15:46 | P.PNIM_ITS ---
Progress Note: A&P Assessment and Plan (1) Septic shock: Code(s): A41.9 - Sepsis, unspecified organism; R65.21 - Severe sepsis with septic shock Status: Acute Assessment and Plan: Patient presented with bilateral lower lobe infiltrates, pneumonia, hypotension overnight requiring central line placement on 01/19, and Levophed -01/20: currently off all pressors -01/18: Blood and sputum cultures growing MSSA -01/20 and 01/23: Repeat blood cultures negative so far -status post doxycycline for 5 days -01/21: started on Cefazolin and DC cefepime, vancomycin (01/21) -patient received a course of Solu-Medrol for 4 doses, wheezing has improved -01/23: Patient again febrile with a T-max of 101.3?, thick yellow colored secretions from the ET tube, white blood cell count trending up. FiO2 requirements going up, Will repeat blood cultures, -01/23: DC cefazolin. Started vancomycin and meropenem (01/23) Fever curve much improved, patient is afebrile, improvement in WBC 1625: Echocardiogram Summary 1. Left ventricular chamber dimension is normal. 2. Left ventricular systolic function is normal, estimated at 60-65. 3. The left ventricular diastolic function is grade I diastolic dysfunction. 4. Right ventricular chamber dimension is mildly enlarged. 5. Right ventricular systolic function is normal. 6. Right atrial chamber dimension is mildly enlarged. 7. There is mild to moderate tricuspid valve regurgitation. (2) Acute hypoxic respiratory failure: Code(s): J96.01 - Acute respiratory failure with hypoxia Status: Acute Assessment and Plan: 01/18: Patient presented the ED with shortness of breath, weakness, diabetic ketoacidosis, pneumonia. Intubated in the ED for airway protection and hypoxia 01/25 extubated -chest x-ray and ABGs reviewed, - CTA chest on admission showed bilateral lower lobe pneumonia -completed Tamiflu -01/23: bilateral diffuse wheezing, continue bronchodilators and received a course Solu-Medrol -wheezing which improved this morning, Continue supplemental oxygen Incentive spirometry -01/28: CT chest shows cavitary lesions. Now on Augmentin 01/15: CTA chest IMPRESSION: 1. No pulmonary embolism. 2. Bilateral pneumonia in the lower lobes. Pneumonia in the lingula. Minimal changes of pneumonia in the right middle lobe. Pneumonia in the right upper lobe posteriorly. Follow-up to resolution is advised. (3) PNA (pneumonia): Code(s): J18.9 - Pneumonia, unspecified organism Status: Acute Assessment and Plan: 01/28/2025 CT shows a cavitary lesions in lung s/p meropenem and linezolid awaiting QuantiFERON test for PEPITO exam Continue Augmentin 01/28: CT Chest:Interval progression of multifocal consolidation within the bilateral lung martini, now demonstrating cavitation with intracavitary nodule in the lingula for which the differential diagnosis is broad but includes reactivated tuberculosis, aspergillosis, autoimmune etiology and infection versus septic pulmonary emboli (thought to be less likely secondary to cavitary distribution) (4) DKA (diabetic ketoacidosis): Code(s): E11.10 - Type 2 diabetes mellitus with ketoacidosis without coma Status: Acute Assessment and Plan: Patient presented with elevated beta hydroxybutyrate, anion gap metabolic acidosis, UA showed ketones, glucose -likely euglycemic diabetic ketoacidosis as patient was still taking Jardiance and metformin -this given 3 L IV fluids since admission, started on insulin infusion per DKA protocol -overnight patient was transition to long-acting insulin Lantus, and sliding scale insulin with Accu-Chek -continue to monitor -blood sugars in stable, continue Accu-Cheks, sliding scale insulin and Lantus (5) Flu: Code(s): J11.1 - Influenza due to unidentified influenza virus with other respiratory manifestations Status: Acute Assessment and Plan: Patient was tested positive for influenza A -status post course of Tamiflu (6) Chronic low blood pressure: Code(s): I95.89 - Other hypotension Status: Acute Assessment and Plan: Patient has chronic low blood pressures, according the daughter systolic blood pressures range in the 80s to 90s -blood pressures remain stable off pressors (7) Sinus tachycardia: Code(s): R00.0 - Tachycardia, unspecified Status: Acute Assessment and Plan: Has a history of chronic sinus tachycardia for which she is on metoprolol at home, -patient's heart rate is in the 100-110 which is her baseline -01/23: Restarted home metoprolol Change bronchodilators p.r.n. Check thyroid function test (8) PCOS (polycystic ovarian syndrome): Code(s): E28.2 - Polycystic ovarian syndrome Status: Acute Assessment and Plan: Hold spironolactone (9) Hyperlipidemia: Code(s): E78.5 - Hyperlipidemia, unspecified Status: Acute Assessment and Plan: continue Atorvastatin (10) Electrolyte imbalance: Code(s): E87.8 - Other disorders of electrolyte and fluid balance, not elsewhere classified Status: Acute Assessment and Plan: Replace potassium (11) Encephalopathy: Code(s): G93.40 - Encephalopathy, unspecified Status: Acute Assessment and Plan: resolved (12) Right foot drop: Code(s): M21.371 - Foot drop, right foot Status: Acute Assessment and Plan: Acute finding Reviewed MRI cervical, thoracic and lumbar Evidence of New cavitary lesions in lung Will repeat MRI lumbar needed Dr. Domingo reviewed with MRI with Radiology to definitely rule out osteomyelitis, diskitis or spinal abscess Consulted neurology and Neurosurgery Evidence of bowel incontinence Continue AFO EMG after Neurology recommendation No neurosurgery needed as MRI did not showed disc herniation or cord compression PT OT Follow up with neurology for EMG and NCS (13) Dysphagia: Code(s): R13.10 - Dysphagia, unspecified Status: Acute Assessment and Plan: 0 01/29 patient failed swallow study cleared and now tolerating diet Dietitian following Plan MSSA bacteremia blood culture reviewed repeat pending Quatiferon test negative Continue High dose Augmentin Discussed with cardiology and PEPITO is scheduled for tomorrow DVT prophylaxis: Lovenox Code Status: Full code Subjective Date/time seen: 02/04/25 15:46 Interval history: Comfortable at bedside Review of Systems Review of Systems: All systems reviewed & are unremarkable except as noted in HPI and below (HPI) ROS unobtainable: Yes unobtainable due to endotracheal tube, unobtainable due to medical condition and unobtainable due to mental statu s Exam Narrative: General: Awake alert in no acute distress HEENT:? Pupils small and reactive bilaterally, sclera is clear, Neck:? Supple, right IJ central line in place Respiratory:? Coarse breath sounds bilaterally, decreased at bases, bilateral wheezing, no tachypnea use of accessory muscles or respiratory distress Cardiac:? Sinus tachycardia, S1-S2 was normal, no murmurs Abdomen:? Soft, nontender, nondistended, hypoactive bowel sounds Extremities:? No edema, palpable pedal pulses Neuro:? Intubated, AO x3 follows simple commands in all extremities carries conversation but is little confused and goes tangential when answering questions Skin:? No lesions noted Psych:? Normal speech and affect Objective Data Vital Signs Vital Signs: Vital Signs - 24 hr 02/03/25 16:00 02/03/25 16:00 02/03/25 20:00 Temperature 98.0 F Pulse Rate 107 H 106 H Respiratory Rate 16 Blood Pressure 100/49 L Pulse Oximetry 95 Oxygen Delivery Room Air 02/03/25 20:00 02/03/25 21:17 02/03/25 21:38 Temperature 98.4 F Pulse Rate 110 H 109 H 78 Respiratory Rate 18 16 Blood Pressure 104/65 Pulse Oximetry 94 Oxygen Delivery 02/03/25 21:48 02/04/25 00:00 02/04/25 03:04 Temperature Pulse Rate 83 106 H 74 Respiratory Rate 16 16 Blood Pressure Pulse Oximetry Oxygen Delivery 02/04/25 03:15 02/04/25 04:00 02/04/25 04:02 Temperature 98.2 F Pulse Rate 76 111 H 116 H Respiratory Rate 16 16 Blood Pressure 92/52 L Pulse Oximetry 93 Oxygen Delivery 02/04/25 08:04 02/04/25 08:42 02/04/25 08:45 Temperature Pulse Rate 103 H 108 H Respiratory Rate Blood Pressure Pulse Oximetry 93 Oxygen Delivery Room Air 02/04/25 08:45 02/04/25 08:51 02/04/25 08:55 Temperature Pulse Rate 102 H 105 H Respiratory Rate 18 16 Blood Pressure Pulse Oximetry Oxygen Delivery Room Air 02/04/25 12:05 02/04/25 14:08 02/04/25 14:18 Temperature Pulse Rate 107 H 103 H 102 H Respiratory Rate 16 16 Blood Pressure Pulse Oximetry Oxygen Delivery 02/04/25 15:00 Temperature 97.9 F Pulse Rate 107 H Respiratory Rate 20 Blood Pressure 99/52 L Pulse Oximetry 92 Oxygen Delivery Intake/Output Intake/Output: Intake & Output 02/01/25 02/02/25 02/03/25 02/04/25 23:59 23:59 23:59 23:59 Intake Total 1075 240 500 917 Output Total 1350 2600 200 1050 Balance -275 -2360 300 -133 Meds/Results Medications: Active Medications Generic Name Dose Route Start Last Admin Trade Name Freq PRN Reason Stop Dose Admin Acetaminophen 650 mg 02/04/25 09:44 02/04/25 10:36 Acetaminophen 325 Mg Tablet PO 650 mg Q4H PRN Administration Mild Pain (1-3) or Fever Albuterol/Ipratropium 3 ml 01/29/25 14:00 02/04/25 14:08 Ipratropium 0.5 Mg/Albuterol Sulfate 2.5 Mg Ampul.Neb 3 Ml INHALATION 3 ml Q6HRT SESAR Administration Amoxicillin/Clavulanate Potassium 1 tablet 02/02/25 14:00 02/04/25 13:54 Amoxicillin/Clavulanate K 875-125 Mg Tab PO 1 tablet Q8HR SESAR Administration Atorvastatin Calcium 20 mg 01/19/25 18:00 02/03/25 17:18 Atorvastatin 20 Mg Tablet PO 20 mg QPM SESAR Administration Benzocaine/Butamben/Tetracaine HCl 1 spray 01/29/25 18:22 02/04/25 13:54 Benzocaine/Tetracaine [place] (*Sp) 56 Ml Aerosol MUCOUS MEM 1 spray Q4HR PRN Administration pain Benzonatate 200 mg 01/29/25 13:00 02/04/25 12:40 Benzonatate 100 Mg Capsule PO 200 mg TID SESAR Administration Dextrose 12.5 gm 01/27/25 05:42 Dextrose 50% 25 Gm/50 Ml Syringe IV PUSH PRN PRN Hypoglycemia Protocol Enoxaparin Sodium 40 mg 01/20/25 09:00 02/04/25 08:42 Enoxaparin 40 Mg/0.4 Ml Syringe SUB-Q 40 mg DAILY SESAR Administration Estradiol 1 mg 01/19/25 09:00 02/04/25 08:42 Estradiol 1 Mg Tablet PO 1 mg DAILY SESAR Administration Glucagon 1 mg 01/27/25 05:42 Glucagon For Inj 1 Mg Vial IM PRN PRN Hypoglycemia Protocol Glucose 15 gm 01/27/25 05:42 Glucose Oral Gel 15 Gm Of Glucse In 37.5 Gm Tube PO PRN PRN Hypoglycemia Protocol Guaifenesin 1,200 mg 02/03/25 09:26 02/04/25 08:42 Guaifenesin 12 Hr 600 Mg Tabcr PO 1,200 mg Q12HR SESAR Administration Dextrose 1,000 mls @ 100 mls/hr 01/27/25 05:42 Dextrose 5% 1,000 Ml IVPB PRN PRN Hypoglycemia Protocol Insulin Aspart 3 - 6 units 01/27/25 06:30 02/04/25 11:24 Insulin Aspart (*Bkc) 100 Units/Ml SUB-Q Not Given ACHS [facility] Protocol Insulin Glargine 10 units 01/25/25 21:00 02/03/25 21:39 Insulin Glargine (*Bkc) 100 Units/Ml SUB-Q 10 units HS SESAR Administration Ipratropium [place] 0.5 mg 01/26/25 07:34 Ipratropium Br 0.02% Inh Soln 0.5 Mg/2.5 Ml Vial INHALATION Q6HRT PRN Wheezing Levalbuterol HCl 0.63 mg 01/26/25 07:34 01/26/25 22:37 Levalbuterol Neb 1.25 Mg/3 Ml INHALATION 0.63 mg Q6HRT PRN Administration Wheezing Metoprolol Tartrate 25 mg 01/26/25 21:45 02/04/25 08:42 Metoprolol Tartrate 25 Mg Tablet PO 25 mg Q12HR SESAR Administration Ondansetron HCl 4 mg 01/19/25 01:20 Ondansetron Inj 4 Mg/2 Ml Vial IV PUSH Q4H PRN Nausea And Vomiting Pantoprazole Sodium 40 mg 01/28/25 09:00 02/04/25 08:43 Pantoprazole 40 Mg Tablet PO 40 mg QAM SESAR Administration Polyethylene Glycol 17 gm 01/24/25 10:15 Polyethylene Glycol 3350 17 Gm Powd.Pack PO QAM PRN Constipation Senna/Docusate Sodium 1 tab 01/24/25 10:20 02/04/25 08:46 Senna/Docusate Sodium Tablet PO 1 tab Q12HR SESAR Administration Spironolactone 100 mg 01/19/25 09:00 Spironolactone 50 Mg Tablet PO Q12HR [facility] Radiology Results: ITS Impressions Chest CTA 01/18/25 15:25 IMPRESSION: 1. No pulmonary embolism. 2. Bilateral pneumonia in the lower lobes. Pneumonia in the lingula. Minimal changes of pneumonia in the right middle lobe. Pneumonia in the right upper lobe posteriorly. Follow-up to resolution is advised. Head CT 01/22/25 10:18 Impression: No significant abnormality seen. Chest CT 01/28/25 15:29 IMPRESSION: Interval progression of multifocal consolidation within the bilateral lung martini, now demonstrating cavitation with intracavitary nodule in the lingula for which the differential diagnosis is broad but includes reactivated tuberculosis, aspergillosis, autoimmune etiology and infection versus septic pulmonary emboli (thought to be less likely secondary to cavitary distribution) Chest X-Ray 02/01/25 09:16 IMPRESSION: Bibasilar and perihilar pneumonia. No significant change from previous examination. Cervical Spine MRI 02/01/25 13:22 IMPRESSION: Posterior disc osteophyte complex causing mild spinal canal stenosis at C4-5 and C5-6. Thoracic Spine MRI 02/01/25 13:27 IMPRESSION: MRI of the thoracic spine is within normal limits for age. Lumbar Spine MRI 02/01/25 13:32 IMPRESSION: Asymmetric disc bulges at L2-3 and L3-4 along with facet arthropathy causing mild spinal canal stenosis and mild left neural foraminal narrowing. Correlate with clinical distribution of symptoms. Modified Barium Swallow 02/02/25 09:52 IMPRESSION: Pharyngeal dysphagia with laryngeal penetration without aspiration. Please correlate with speech pathologist findings and specific feeding recommendations. Labs Labs: Laboratory Results - last 24 hr 02/03/25 02/03/25 02/04/25 17:57 21:22 05:50 POC Capillary Glucose 108 H 151 H Iron 42 TIBC 199 L % Saturation 21 Ferritin 85.40 Vitamin B12 > 1000.0 H Folate 13.0 02/04/25 02/04/25 07:55 11:55 POC Capillary Glucose 99 165 H Iron TIBC % Saturation Ferritin Vitamin B12 Folate Quality VTE Prophylaxis VTE prophylaxis: pharmacologic ordered
[2025-02-04 16:55] LABS: Glucose Point of Care 123 mg/dl (65-105)
[2025-02-04] MEDS: ATORVASTATIN 20 MG TABLET PO (17:52)
--- NOTE | 2025-02-04 18:47 | P.PNNEUR_ITS ---
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 She will require EMG nerve can study to further clarify the. I have advised her to avoid crossing the right leg onto the left side. I shall see her at the time of the EMG and I have advised the nursing staff to arrange it as an outpatient in Neurology Department. Subjective Date/time seen: 02/04/25 18:47 Interval history: the patient is 54-year-old with right footdrop. 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 She denies any other additional new symptoms. Review of Systems Review of Systems: The patient denies any lower back pain. She has history of diabetes mellitus. She was in intensive care unit and account of respiratory failure and was intubated. Also had influenza a infection. She was also in diabetic ketoac idosis. Exam Narrative: Examination mental status unremarkable. She has persistent right footdrop w hich is held in a brace. No other additional findings were noted. Objective Data Vital Signs Vital Signs: Vital Signs - 24 hr 02/03/25 20:00 02/03/25 20:00 02/03/25 21:17 Temperature 98.4 F Pulse Rate 110 H 109 H Respiratory Rate 18 Blood Pressure 104/65 Pulse Oximetry 94 Oxygen Delivery Room Air 02/03/25 21:38 02/03/25 21:48 02/04/25 00:00 Temperature Pulse Rate 78 83 106 H Respiratory Rate 16 16 Blood Pressure Pulse Oximetry Oxygen Delivery 02/04/25 03:04 02/04/25 03:15 02/04/25 04:00 Temperature Pulse Rate 74 76 111 H Respiratory Rate 16 16 Blood Pressure Pulse Oximetry Oxygen Delivery 02/04/25 04:02 02/04/25 08:04 02/04/25 08:42 Temperature 98.2 F Pulse Rate 116 H 103 H 108 H Respiratory Rate 16 Blood Pressure 92/52 L Pulse Oximetry 93 Oxygen Delivery 02/04/25 08:45 02/04/25 08:45 02/04/25 08:51 Temperature Pulse Rate 102 H Respiratory Rate 18 Blood Pressure Pulse Oximetry 93 Oxygen Delivery Room Air Room Air 02/04/25 08:55 02/04/25 12:05 02/04/25 14:08 Temperature Pulse Rate 105 H 107 H 103 H Respiratory Rate 16 16 Blood Pressure Pulse Oximetry Oxygen Delivery 02/04/25 14:18 02/04/25 15:00 02/04/25 16:00 Temperature 97.9 F Pulse Rate 102 H 107 H 103 H Respiratory Rate 16 20 Blood Pressure 99/52 L Pulse Oximetry 92 Oxygen Delivery Intake/Output Intake/Output: Intake & Output 02/01/25 02/02/25 02/03/25 02/04/25 23:59 23:59 23:59 23:59 Intake Total 1075 475 046 8955 Output Total 1350 2600 200 1050 Balance -275 -2360 300 1204 Meds/Results Medications: Active Medications Generic Name Dose Route Start Last Admin Trade Name Freq PRN Reason Stop Dose Admin Acetaminophen 650 mg 02/04/25 09:44 02/04/25 17:53 Acetaminophen 325 Mg Tablet PO 650 mg Q4H PRN Administration Mild Pain (1-3) or Fever Albuterol/Ipratropium 3 ml 01/29/25 14:00 02/04/25 14:08 Ipratropium 0.5 Mg/Albuterol Sulfate 2.5 Mg Ampul.Neb 3 Ml INHALATION 3 ml Q6HRT SESAR Administration Amoxicillin/Clavulanate Potassium 1 tablet 02/02/25 14:00 02/04/25 13:54 Amoxicillin/Clavulanate K 875-125 Mg Tab PO 1 tablet Q8HR SESAR Administration Atorvastatin Calcium 20 mg 01/19/25 18:00 02/04/25 17:52 Atorvastatin 20 Mg Tablet PO 20 mg QPM SESAR Administration Benzocaine/Butamben/Tetracaine HCl 1 spray 01/29/25 18:22 02/04/25 13:54 Benzocaine/Tetracaine [place] (*Sp) 56 Ml Aerosol MUCOUS MEM 1 spray Q4HR PRN Administration pain Benzonatate 200 mg 01/29/25 13:00 02/04/25 17:52 Benzonatate 100 Mg Capsule PO 200 mg TID SESAR Administration Dextrose 12.5 gm 01/27/25 05:42 Dextrose 50% 25 Gm/50 Ml Syringe IV PUSH PRN PRN Hypoglycemia Protocol Enoxaparin Sodium 40 mg 01/20/25 09:00 02/04/25 08:42 Enoxaparin 40 Mg/0.4 Ml Syringe SUB-Q 40 mg DAILY SESAR Administration Estradiol 1 mg 01/19/25 09:00 02/04/25 08:42 Estradiol 1 Mg Tablet PO 1 mg DAILY SESAR Administration Glucagon 1 mg 01/27/25 05:42 Glucagon For Inj 1 Mg Vial IM PRN PRN Hypoglycemia Protocol Glucose 15 gm 01/27/25 05:42 Glucose Oral Gel 15 Gm Of Glucse In 37.5 Gm Tube PO PRN PRN Hypoglycemia Protocol Guaifenesin 1,200 mg 02/03/25 09:26 02/04/25 08:42 Guaifenesin 12 Hr 600 Mg Tabcr PO 1,200 mg Q12HR SESAR Administration Dextrose 1,000 mls @ 100 mls/hr 01/27/25 05:42 Dextrose 5% 1,000 Ml IVPB PRN PRN Hypoglycemia Protocol Insulin Aspart 3 - 6 units 01/27/25 06:30 02/04/25 17:52 Insulin Aspart (*Bkc) 100 Units/Ml SUB-Q Not Given ACHS [facility] Protocol Insulin Glargine 10 units 01/25/25 21:00 02/03/25 21:39 Insulin Glargine (*Bkc) 100 Units/Ml SUB-Q 10 units HS SESAR Administration Ipratropium [place] 0.5 mg 01/26/25 07:34 Ipratropium Br 0.02% Inh Soln 0.5 Mg/2.5 Ml Vial INHALATION Q6HRT PRN Wheezing Levalbuterol HCl 0.63 mg 01/26/25 07:34 01/26/25 22:37 Levalbuterol Neb 1.25 Mg/3 Ml INHALATION 0.63 mg Q6HRT PRN Administration Wheezing Metoprolol Tartrate 25 mg 01/26/25 21:45 02/04/25 08:42 Metoprolol Tartrate 25 Mg Tablet PO 25 mg Q12HR SESAR Administration Ondansetron HCl 4 mg 01/19/25 01:20 Ondansetron Inj 4 Mg/2 Ml Vial IV PUSH Q4H PRN Nausea And Vomiting Pantoprazole Sodium 40 mg 01/28/25 09:00 02/04/25 08:43 Pantoprazole 40 Mg Tablet PO 40 mg QAM SESAR Administration Polyethylene Glycol 17 gm 01/24/25 10:15 Polyethylene Glycol 3350 17 Gm Powd.Pack PO QAM PRN Constipation Senna/Docusate Sodium 1 tab 01/24/25 10:20 02/04/25 08:46 Senna/Docusate Sodium Tablet PO 1 tab Q12HR SESAR Administration Spironolactone 100 mg 01/19/25 09:00 Spironolactone 50 Mg Tablet PO Q12HR SESAR Radiology Results: ITS Impressions Chest CTA 01/18/25 15:25 IMPRESSION: 1. No pulmonary embolism. 2. Bilateral pneumonia in the lower lobes. Pneumonia in the lingula. Minimal changes of pneumonia in the right middle lobe. Pneumonia in the right upper lobe posteriorly. Follow-up to resolution is advised. Head CT 01/22/25 10:18 Impression: No significant abnormality seen. Chest CT 01/28/25 15:29 IMPRESSION: Interval progression of multifocal consolidation within the bilateral lung martini, now demonstrating cavitation with intracavitary nodule in the lingula for which the differential diagnosis is broad but includes reactivated tuberculosis, aspergillosis, autoimmune etiology and infection versus septic pulmonary emboli (thought to be less likely secondary to cavitary distribution) Chest X-Ray 02/01/25 09:16 IMPRESSION: Bibasilar and perihilar pneumonia. No significant change from previous examination. Cervical Spine MRI 02/01/25 13:22 IMPRESSION: Posterior disc osteophyte complex causing mild spinal canal stenosis at C4-5 and C5-6. Thoracic Spine MRI 02/01/25 13:27 IMPRESSION: MRI of the thoracic spine is within normal limits for age. Lumbar Spine MRI 02/01/25 13:32 IMPRESSION: Asymmetric disc bulges at L2-3 and L3-4 along with facet arthropathy causing mild spinal canal stenosis and mild left neural foraminal narrowing. Correlate with clinical distribution of symptoms. Modified Barium Swallow 02/02/25 09:52 IMPRESSION: Pharyngeal dysphagia with laryngeal penetration without aspiration. Please correlate with speech pathologist findings and specific feeding recommendations. Labs Labs: Laboratory Results - last 24 hr 02/03/25 02/04/25 02/04/25 21:22 05:50 07:55 POC Capillary Glucose 151 H 99 Iron 42 TIBC 199 L % Saturation 21 Ferritin 85.40 Vitamin B12 > 1000.0 H Folate 13.0 02/04/25 02/04/25 11:55 16:37 POC Capillary Glucose 165 H 123 H Iron TIBC % Saturation Ferritin Vitamin B12 Folate
[2025-02-04] MEDS: INSULIN GLARGINE (*BKC) 100 UNITS/ML 10 UNITS SUB-Q (21:24)
[2025-02-04 22:11] LABS: Glucose Point of Care 137 mg/dl (65-105)
[2025-02-05] VITALS (17 sets, daily range): BP systolic 86–105; BP diastolic 53–67; PULSE 95–112; RESP 15–21; TEMP 36.8; O2SAT 93–97
[2025-02-05] MEDS: IPRATROPIUM 0.5 MG/ALBUTEROL SULFATE 2.5 MG AMPUL.NEB 3 ML INHALATION ×2 (03:17→09:03)
[2025-02-05] MEDS: AMOXICILLIN/CLAVULANATE K 875-125 MG TAB 1 TABLET PO ×2 (07:12→13:57)
[2025-02-05 07:30] LABS: Basophils Absolute Auto 0.1 K/mm3 (0.0-0.1); Basophils Percent Auto 0.7 % (0.2-1.2); Eosinophils Absolute Auto 0.1 K/mm3 (0-0.3); Eosinophils Percent Auto 1.3 % (0-4.4); Hematocrit 29.6 % (37.0-47.0); Hemoglobin 9.2 g/dL (12.0-15.0); Immature Granulocyte Absolute 0.07 K/mm3 (0.00-0.031); Immature Granulocyte Percent A 0.6 % (0-0.5); Lymphocytes Absolute Auto 1.21 K/mm3 (0.9-3.2); Lymphocytes Percent Auto 10.9 % (18.3-44.2); Mean Corpuscular HGB Conc 31.1 g/dl (32-36); Mean Corpuscular Hemoglobin 33.1 pg (26-34); Mean Corpuscular Volume 106.5 fl (80-100); Mean Platelet Volume 9.5 fl (7.4-10.4); Monocytes Absolute Auto 1.1 K/mm3 (0.1-0.6); Monocytes Percent Auto 9.5 % (2.6-8.5); Neutrophils Absolute Auto 8.5 K/mm3 (1.3-6.7); Platelet Count Result 494 k/mm3 (150-375); Red Blood Count 2.78 M/mm3 (4.2-5.4); Red Cell Distribution Width 15.3 % (11.5-14.5); White Blood Count 11.1 K/mm3 (4.5-10.0)
[2025-02-05 07:58] LABS: Alanine Aminotransferase 20 U/L (6-35); Albumin Level 3.1 g/dL (3.5-5.1); Alkaline Phosphatase 73 U/L (38-126); Anion Gap 8 mmol/L (4-12); Aspartate Amino Transferase 26 U/L (14-36); Bilirubin,Total 0.3 mg/dL (0.2-1.3); Blood Urea Nitrogen 10 mg/dL (7-17); Calcium 9.3 mg/dL (8.4-10.2); Carbon Dioxide 25 mmol/L (22-30); Chloride 105 mmol/L (98-107); Estimated CRCL calculation 97 ml/min; Estimated Glomerular Filt Rate > 60; Glucose 119 mg/dL (65-110); Magnesium 1.8 mg/dL (1.6-2.3); Potassium 3.4 mmol/L (3.4-5.0); Sodium 138 mmol/L (137-145); Total Protein 6.6 g/dL (6.3-8.2)
[2025-02-05 08:10] LABS: Macrocytosis 1+ (NORMAL); Platelet Estimate Increased (Adequate); Schistocytes None Seen
[2025-02-05] MEDS: BENZONATATE 100 MG CAPSULE 200 MG PO ×2 (08:20→12:28)
[2025-02-05] MEDS: guaiFENesin 12 HR 600 MG TABCR 1200 MG PO (08:20)
[2025-02-05] MEDS: estradioL 1 MG TABLET PO (08:20)
[2025-02-05] MEDS: METOPROLOL TARTRATE 25 MG TABLET PO (08:21)
[2025-02-05] MEDS: PANTOPRAZOLE 40 MG TABLET PO (08:21)
[2025-02-05 09:18] LABS: Glucose Point of Care 104 mg/dl (65-105)
[2025-02-05] MEDS: MIDAZOLAM HCL (*CRX) 2 MG/2 ML VIAL 3 MG IV PUSH (10:59)
[2025-02-05] MEDS: fentaNYL CITRATE INJ (*CRX) 100 MCG/2 ML VIAL 75 MCG IV PUSH (11:02)
--- NOTE | 2025-02-05 11:17 | WPDHPUPDATE1 ---
History and Physical Update Update Date/Time: 02/05/25 11:17 History and Physical has been reviewed, including an updated exam of the patient. There are NO changes in the patient's condition. Risks, benefits, and alternatives have been discussed and questions answered. Patient agrees to proceed with procedure.
--- NOTE | 2025-02-05 11:17 | WPDMODSED ---
Moderate Sedation Note-Pt Data Patient Data Diagnosis: Bacteremia Present Complaint: Bacteremia Procedure to be performed/Plan: Transesophageal Echocardiogram Allergies Allergy/AdvReac Type Severity Reaction Status Date / Time Sulfa (Sulfonamide Allergy Unknown Rash Verified 01/18/25 16:13 Antibiotics) Home Medications ?Medication ?Instructions ?Recorded ?Confirmed ?Type atorvastatin 20 mg tablet 20 mg PO QPM 01/18/25 01/18/25 History cyclobenzaprine 10 mg tablet 10 mg PO TID 01/18/25 01/18/25 History empagliflozin 10 mg tablet 10 mg PO DAILY 01/18/25 01/18/25 History (Jardiance) estradiol 1 mg tablet 1 mg PO DAILY 01/18/25 01/18/25 History metformin 500 mg tablet,extended 500 mg PO .Q12HR 01/18/25 01/18/25 History release 24 hr metoprolol succinate 50 mg 50 mg PO DAILY 01/18/25 01/18/25 History tablet,extended release 24 hr nabumetone 750 mg tablet 750 mg PO .q12hr 01/18/25 01/18/25 History semaglutide 2 mg/dose (8 mg/3 mL) 2 mg subcut WEEKLY 01/18/25 01/18/25 History subcutaneous pen injector (Ozempic) spironolactone 100 mg tablet 100 mg PO Q12H 01/18/25 01/18/25 History Current Medications: Active Medications Acetaminophen (Acetaminophen 325 Mg Tablet) 650 mg PO Q4H PRN PRN Reason: Mild Pain (1-3) or Fever Last Admin: 02/04/25 17:53 Dose: 650 mg Albuterol/Ipratropium (Ipratropium 0.5 Mg/Albuterol Sulfate 2.5 Mg Ampul.Neb 3 Ml) 3 ml INHALATION Q6HRT [facility] Last Admin: 02/05/25 09:03 Dose: 3 ml Amoxicillin/Clavulanate Potassium (Amoxicillin/Clavulanate K 875-125 Mg Tab) 1 tablet PO Q8HR [facility] Last Admin: 02/05/25 07:12 Dose: 1 tablet Atorvastatin Calcium (Atorvastatin 20 Mg Tablet) 20 mg PO QPM [facility] Last Admin: 02/04/25 17:52 Dose: 20 mg Benzocaine/Butamben/Tetracaine HCl (Benzocaine/Tetracaine Flomot (*Sp) 56 Ml Aerosol) 1 spray MUCOUS MEM Q4HR PRN PRN Reason: pain Last Admin: 02/04/25 13:54 Dose: 1 spray Benzonatate (Benzonatate 100 Mg Capsule) 200 mg PO TID [facility] Last Admin: 02/05/25 08:20 Dose: 200 mg Dextrose (Dextrose 50% 25 Gm/50 Ml Syringe) 12.5 gm IV PUSH PRN PRN; Protocol PRN Reason: Hypoglycemia Enoxaparin Sodium (Enoxaparin 40 Mg/0.4 Ml Syringe) 40 mg SUB-Q DAILY [facility] Last Admin: 02/04/25 08:42 Dose: 40 mg Estradiol (Estradiol 1 Mg Tablet) 1 mg PO DAILY [facility] Last Admin: 02/05/25 08:20 Dose: 1 mg Glucagon (Glucagon For Inj 1 Mg Vial) 1 mg IM PRN PRN; Protocol PRN Reason: Hypoglycemia Glucose (Glucose Oral Gel 15 Gm Of Glucse In 37.5 Gm Tube) 15 gm PO PRN PRN; Protocol PRN Reason: Hypoglycemia Guaifenesin (Guaifenesin 12 Hr 600 Mg Tabcr) 1,200 mg PO Q12HR [facility] Last Admin: 02/05/25 08:20 Dose: 1,200 mg Dextrose (Dextrose 5% 1,000 Ml) 1,000 mls @ 100 mls/hr IVPB PRN PRN; Protocol PRN Reason: Hypoglycemia Insulin Aspart (Insulin Aspart (*Bkc) 100 Units/Ml) 3 - 6 units SUB-Q [facility]; Protocol Last Admin: 02/05/25 08:01 Dose: Not Given Insulin Glargine (Insulin Glargine (*Bkc) 100 Units/Ml) 10 units SUB-Q HS [facility] Last Admin: 02/04/25 21:24 Dose: 10 units Ipratropium [place] (Ipratropium Br 0.02% Inh Soln 0.5 Mg/2.5 Ml Vial) 0.5 mg INHALATION Q6HRT PRN PRN Reason: Wheezing Levalbuterol HCl (Levalbuterol Neb 1.25 Mg/3 Ml) 0.63 mg INHALATION Q6HRT PRN PRN Reason: Wheezing Last Admin: 01/26/25 22:37 Dose: 0.63 mg Metoprolol Tartrate (Metoprolol Tartrate 25 Mg Tablet) 25 mg PO Q12HR [facility] Last Admin: 02/05/25 08:21 Dose: 25 mg Ondansetron HCl (Ondansetron Inj 4 Mg/2 Ml Vial) 4 mg IV PUSH Q4H PRN PRN Reason: Nausea And Vomiting Pantoprazole Sodium (Pantoprazole 40 Mg Tablet) 40 mg PO QAM [facility] Last Admin: 02/05/25 08:21 Dose: 40 mg Polyethylene Glycol (Polyethylene Glycol 3350 17 Gm Powd.Pack) 17 gm PO QAM PRN PRN Reason: Constipation Senna/Docusate Sodium (Senna/Docusate Sodium Tablet) 1 tab PO Q12HR [facility] Last Admin: 02/05/25 08:21 Dose: Not Given Spironolactone (Spironolactone 50 Mg Tablet) 100 mg PO Q12HR [facility] Sedation/Anesthesia: No previous sedation/anesthesia problems (including family history). [facility] Past Medical History Medical History Influenza A Chronic low blood pressure Family History Family History Father Diabetes mellitus Mother Diabetes mellitus Other Family history of cardiovascular disease Hypertension Social History Social History Smoking status: Never smoker Alcohol intake: current Drinks per week: 1 Substance use type: does not use Spiritual care concerns: No Mod Sed Physical Exam Physical Exam Pre Procedural Exam: Normal: Appearance, Lungs, Heart Rate, Heart Rhythm, Neuro Exam, Extremities and Skin Hours since solid foods: 12 Hours since liquid intake: 8 Mallampati Classification: class II Internal Medicine - PN: Obj Da Vital Signs Vital Signs: Vital Signs - 24 hr 02/04/25 12:05 02/04/25 14:08 02/04/25 14:18 Temperature Pulse Rate 107 H 103 H 102 H Respiratory Rate 16 16 Blood Pressure Pulse Oximetry Oxygen Delivery Oxygen Flow Rate 02/04/25 15:00 02/04/25 16:00 02/04/25 20:00 Temperature 36.6 C Pulse Rate 107 H 103 H Respiratory Rate 20 Blood Pressure 99/52 L Pulse Oximetry 92 Oxygen Delivery Room Air Oxygen Flow Rate 02/04/25 20:00 02/04/25 21:22 02/04/25 21:35 Temperature 36.6 C Pulse Rate 109 H 105 H 102 H Respiratory Rate 18 Blood Pressure 101/64 Pulse Oximetry 96 Oxygen Delivery Oxygen Flow Rate 02/04/25 22:03 02/04/25 22:03 02/04/25 22:13 Temperature Pulse Rate 107 H 109 H Respiratory Rate 16 16 Blood Pressure Pulse Oximetry 96 Oxygen Delivery Room Air Oxygen Flow Rate 02/05/25 00:00 02/05/25 03:18 02/05/25 03:27 Temperature Pulse Rate 102 H 101 H 102 H Respiratory Rate 16 16 Blood Pressure Pulse Oximetry Oxygen Delivery Oxygen Flow Rate 02/05/25 04:00 02/05/25 05:12 02/05/25 08:21 Temperature 36.8 C Pulse Rate 110 H 112 H 109 H Respiratory Rate 16 Blood Pressure 95/54 L Pulse Oximetry 94 Oxygen Delivery Oxygen Flow Rate 02/05/25 08:26 02/05/25 09:03 02/05/25 09:03 Temperature Pulse Rate 103 H Respiratory Rate 16 Blood Pressure Pulse Oximetry 93 Oxygen Delivery Room Air Room Air Oxygen Flow Rate 02/05/25 09:10 02/05/25 10:52 02/05/25 11:00 Temperature Pulse Rate 103 H 103 H 104 H Respiratory Rate 16 16 21 H Blood Pressure 95/63 L 105/67 Pulse Oximetry 97 97 Oxygen Delivery Room Air Room Air Oxygen Flow Rate 02/05/25 11:05 02/05/25 11:10 02/05/25 11:15 Temperature Pulse Rate 103 H 96 97 Respiratory Rate 18 15 17 Blood Pressure 98/61 L 87/57 L 86/53 L Pulse Oximetry 93 96 96 Oxygen Delivery Nasal Cannula Nasal Cannula Room Air Oxygen Flow Rate 2 2 Intake/Output Intake/Output: Intake & Output 02/02/25 02/03/25 02/04/25 02/05/25 23:59 23:59 23:59 23:59 Intake Total 061 513 9747 350 Output Total 2600 200 1450 1250 Balance -2360 300 804 -900 Meds/Results Medications: Active Medications Generic Name Dose Route Start Last Admin Trade Name Freq PRN Reason Stop Dose Admin Acetaminophen 650 mg 02/04/25 09:44 02/04/25 17:53 Acetaminophen 325 Mg Tablet PO 650 mg Q4H PRN Administration Mild Pain (1-3) or Fever Albuterol/Ipratropium 3 ml 01/29/25 14:00 02/05/25 09:03 Ipratropium 0.5 Mg/Albuterol Sulfate 2.5 Mg Ampul.Neb 3 Ml INHALATION 3 ml Q6HRT [facility] Administration Amoxicillin/Clavulanate Potassium 1 tablet 02/02/25 14:00 02/05/25 07:12 Amoxicillin/Clavulanate K 875-125 Mg Tab PO 1 tablet Q8HR [facility] Administration Atorvastatin Calcium 20 mg 01/19/25 18:00 02/04/25 17:52 Atorvastatin 20 Mg Tablet PO 20 mg QPM [facility] Administration Benzocaine/Butamben/Tetracaine HCl 1 spray 01/29/25 18:22 02/04/25 13:54 Benzocaine/Tetracaine Flomot (*Sp) 56 Ml Aerosol MUCOUS MEM 1 spray Q4HR PRN Administration pain Benzonatate 200 mg 01/29/25 13:00 02/05/25 08:20 Benzonatate 100 Mg Capsule PO 200 mg TID [facility] Administration Dextrose 12.5 gm 01/27/25 05:42 Dextrose 50% 25 Gm/50 Ml Syringe IV PUSH PRN PRN Hypoglycemia Protocol Enoxaparin Sodium 40 mg 01/20/25 09:00 02/04/25 08:42 Enoxaparin 40 Mg/0.4 Ml Syringe SUB-Q 40 mg DAILY [facility] Administration Estradiol 1 mg 01/19/25 09:00 02/05/25 08:20 Estradiol 1 Mg Tablet PO 1 mg DAILY [facility] Administration Glucagon 1 mg 01/27/25 05:42 Glucagon For Inj 1 Mg Vial IM PRN PRN Hypoglycemia Protocol Glucose 15 gm 01/27/25 05:42 Glucose Oral Gel 15 Gm Of Glucse In 37.5 Gm Tube PO PRN PRN Hypoglycemia Protocol Guaifenesin 1,200 mg 02/03/25 09:26 02/05/25 08:20 Guaifenesin 12 Hr 600 Mg Tabcr PO 1,200 mg Q12HR [facility] Administration Dextrose 1,000 mls @ 100 mls/hr 01/27/25 05:42 Dextrose 5% 1,000 Ml IVPB PRN PRN Hypoglycemia Protocol Insulin Aspart 3 - 6 units 01/27/25 06:30 02/05/25 08:01 Insulin Aspart (*Bkc) 100 Units/Ml SUB-Q Not Given ACHS [facility] Protocol Insulin Glargine 10 units 01/25/25 21:00 02/04/25 21:24 Insulin Glargine (*Bkc) 100 Units/Ml SUB-Q 10 units HS [facility] Administration Ipratropium [place] 0.5 mg 01/26/25 07:34 Ipratropium Br 0.02% Inh Soln 0.5 Mg/2.5 Ml Vial INHALATION Q6HRT PRN Wheezing Levalbuterol HCl 0.63 mg 01/26/25 07:34 01/26/25 22:37 Levalbuterol Neb 1.25 Mg/3 Ml INHALATION 0.63 mg Q6HRT PRN Administration Wheezing Metoprolol Tartrate 25 mg 01/26/25 21:45 02/05/25 08:21 Metoprolol Tartrate 25 Mg Tablet PO 25 mg Q12HR [facility] Administration Ondansetron HCl 4 mg 01/19/25 01:20 Ondansetron Inj 4 Mg/2 Ml Vial IV PUSH Q4H PRN Nausea And Vomiting Pantoprazole Sodium 40 mg 01/28/25 09:00 02/05/25 08:21 Pantoprazole 40 Mg Tablet PO 40 mg QAM [facility] Administration Polyethylene Glycol 17 gm 01/24/25 10:15 Polyethylene Glycol 3350 17 Gm Powd.Pack PO QAM PRN Constipation Senna/Docusate Sodium 1 tab 01/24/25 10:20 02/05/25 08:21 Senna/Docusate Sodium Tablet PO Not Given Q12HR [facility] Spironolactone 100 mg 01/19/25 09:00 Spironolactone 50 Mg Tablet PO Q12HR [facility] Radiology Results: ITS Impressions Chest CTA 01/18/25 15:25 IMPRESSION: 1. No pulmonary embolism. 2. Bilateral pneumonia in the lower lobes. Pneumonia in the lingula. Minimal changes of pneumonia in the right middle lobe. Pneumonia in the right upper lobe posteriorly. Follow-up to resolution is advised. Head CT 01/22/25 10:18 Impression: No significant abnormality seen. Chest CT 01/28/25 15:29 IMPRESSION: Interval progression of multifocal consolidation within the bilateral lung martini, now demonstrating cavitation with intracavitary nodule in the lingula for which the differential diagnosis is broad but includes reactivated tuberculosis, aspergillosis, autoimmune etiology and infection versus septic pulmonary emboli (thought to be less likely secondary to cavitary distribution) Chest X-Ray 02/01/25 09:16 IMPRESSION: Bibasilar and perihilar pneumonia. No significant change from previous examination. Cervical Spine MRI 02/01/25 13:22 IMPRESSION: Posterior disc osteophyte complex causing mild spinal canal stenosis at C4-5 and C5-6. Thoracic Spine MRI 02/01/25 13:27 IMPRESSION: MRI of the thoracic spine is within normal limits for age. Lumbar Spine MRI 02/01/25 13:32 IMPRESSION: Asymmetric disc bulges at L2-3 and L3-4 along with facet arthropathy causing mild spinal canal stenosis and mild left neural foraminal narrowing. Correlate with clinical distribution of symptoms. Modified Barium Swallow 02/02/25 09:52 IMPRESSION: Pharyngeal dysphagia with laryngeal penetration without aspiration. Please correlate with speech pathologist findings and specific feeding recommendations. Labs 02/05/25 06:27 02/05/25 06:27 Labs: Laboratory Results - last 24 hr 02/04/25 02/04/25 02/04/25 11:55 16:37 21:15 WBC RBC Hgb Hct MCV MCH MCHC RDW Plt Count MPV Immature Gran % (Auto) Neut % (Auto) Lymph % (Auto) [place] % (Auto) Eos % (Auto) Baso % (Auto) Lymph # (Auto) [place] # (Auto) Eos # (Auto) Baso # (Auto) Abs Immat Gran (auto) Absolute Neuts (auto) Absolute Nucleated RBC Band Neutrophils % Nucleated RBC % Platelet Estimate Macrocytosis Schistocytes Sodium Potassium Chloride Carbon Dioxide Anion Gap BUN Creatinine Estim Creat Clear Calc Estimated GFR Glucose POC Capillary Glucose 165 H 123 H 137 H Calcium Magnesium Total Bilirubin AST ALT Alkaline Phosphatase Total Protein Albumin 02/05/25 02/05/25 06:27 08:58 WBC 11.1 H RBC 2.78 L Hgb 9.2 L Hct 29.6 L MCV 106.5 H MCH 33.1 MCHC 31.1 L RDW 15.3 H Plt Count 494 H MPV 9.5 Immature Gran % (Auto) 0.6 H Neut % (Auto) 77.0 H Lymph % (Auto) 10.9 L [place] % (Auto) 9.5 H Eos % (Auto) 1.3 Baso % (Auto) 0.7 Lymph # (Auto) 1.21 [place] # (Auto) 1.1 H Eos # (Auto) 0.1 Baso # (Auto) 0.1 Abs Immat Gran (auto) 0.07 H Absolute Neuts (auto) 8.5 H Absolute Nucleated RBC 0.000 Band Neutrophils % Not Reportable Nucleated RBC % 0.0 Platelet Estimate Increased Macrocytosis 1+ Schistocytes None seen Sodium 138 Potassium 3.4 Chloride 105 Carbon Dioxide 25 Anion Gap 8 BUN 10 Creatinine 0.48 L Estim Creat Clear Calc 97 Estimated GFR > 60 Glucose 119 H POC Capillary Glucose 104 Calcium 9.3 Magnesium 1.8 Total Bilirubin 0.3 AST 26 ALT 20 Alkaline Phosphatase 73 Total Protein 6.6 Albumin 3.1 L ASA Classification/Sedation ASA Classification/Sedation ASA Class: III Emergent: No Risks: Risks, benefits and alternatives explained and patient/family accepted plan for sedation. Patient re-evaluated immediately prior to sedation.
--- NOTE | 2025-02-05 11:18 | WPDTEECHO ---
PEPITO TransEsophageal Echocardiogram Date of procedure: 02/05/25 Procedure Type: Date Of Procedure: 02/05/2025 Brief History Of Present Illness: Patient is a 54 year old female who is referred for [facility]O for bacteremia. Procedure In Detail: After verbal and written informed consent was obtained, the patient risks, benefits, and alternatives explained in detail. The patient agreed to proceed with the plan of care as outlined above.?The patient was evaluated at bedside in the [facility].?See pre-sedation note for further details. The patient was then placed in the appropriate 30 to 45 degree angle supine position at a slight left lateral decubitus position.?Patient was monitored throughout the study with telemetry, oxygen saturation, end-tidal CO2 monitoring, blood pressure, heart rate, and respirations.?The posterior hypopharynx was then locally anesthetized using repeated administration of Hurricaine spray. After local anesthetic of the posterior hypopharynx was achieved and the oral bite block placed, moderate sedation was administered.?After confirmation of adequate moderate sedation, the transesophageal echocardiogram probe was advanced through the oral bite block into the posterior hypopharynx and into the esophagus easily and without complication.?Multiple, multiplanar echocardiographic images were obtained in multiple standard re-projections.?Color-flow Doppler were utilized in conjunction with this study.?At the conclusion of the study, the transesophageal echocardiogram probe was removed easily and without complication. The patient tolerated the procedure well without difficulty.? Moderate Sedation / Anesthesia Administration: Procedure / sedation start time: 11:00 Procedure / sedation end time: 11:08 Total of IV Versed 3mg and Fentanyl 75mg was administered by MARIAM Villatoro. FINDINGS: LEFT VENTRICLE: Size and systolic function were within normal limits. RIGHT VENTRICLE:?Size and systolic function within normal limits. LEFT ATRIUM: Normal size. RIGHT ATRIUM: Enlarged. INTERATRIAL SEPTUM: Interatrial septum is anatomically normal without evidence of shunt with color-flow Doppler. MITRAL VALVE: Mitral valve is anatomically normal with preserved leaflet excursion. No regurgitation. No vegetations. AORTIC VALVE: The aortic valve was an anatomically normal 3 leaflet structure with normal leaflet excursion. No vegetations. TRICUSPID VALVE: The tricuspid valve is anatomically normal with normal leaflet excursion with mild regurgitation identified.? No mobile elements identified. PULMONIC VALVE: Grossly normal. No vegetations appreciated. LEFT ATRIAL APPENDAGE: Anatomically normal structure with prominent pectinate muscles without thrombus or vegetation identified. PERICARDIUM: The pericardium was anatomically normal without significant pericardial effusion. ? AORTA: Normal CONCLUSION: No evidence of infective endocarditis. Complications: None
--- NOTE | 2025-02-05 11:21 | PM.PNCARD ---
Progress Note: A&P Assessment and Plan (1) Staphylococcus aureus bacteremia: Code(s): R78.81 - Bacteremia; B95.61 - Methicillin susceptible Staphylococcus aureus infection as the cause of diseases classified elsewhere Status: Acute Plan PEPITO completed today. PEPITO is negative for vegetations, no evidence of infective endocarditis. Cardiology will sign off at this time. Subjective Date/time seen: 02/05/25 11:21 Interval history: Reason for visit: PEPITO PEPITO today. Review of Systems Cardiovascular: Cardiovascular: Reports as per HPI Exam Const: General: comfortable and no acute distress HENMT: Mouth: Yes moist mucous membranes Eyes: General: appearance normal, both eyes and all related structures Sclera: sclerae normal Neck: Neck: supple Resp: Effort & Inspection: normal respiratory effort Cardio: Rate: regular rate Rhythm: regular rhythm Skin: General skin exam: normal color Neuro: Speech: normal speech Psych: Mental Status: mental status grossly normal Affect: normal affect Objective Data Vital Signs Vital Signs: Vital Signs - 24 hr 02/04/25 12:05 02/04/25 14:08 02/04/25 14:18 Temperature Pulse Rate 107 H 103 H 102 H Respiratory Rate 16 16 Blood Pressure Pulse Oximetry Oxygen Delivery Oxygen Flow Rate 02/04/25 15:00 02/04/25 16:00 02/04/25 20:00 Temperature 36.6 C Pulse Rate 107 H 103 H Respiratory Rate 20 Blood Pressure 99/52 L Pulse Oximetry 92 Oxygen Delivery Room Air Oxygen Flow Rate 02/04/25 20:00 02/04/25 21:22 02/04/25 21:35 Temperature 36.6 C Pulse Rate 109 H 105 H 102 H Respiratory Rate 18 Blood Pressure 101/64 Pulse Oximetry 96 Oxygen Delivery Oxygen Flow Rate 02/04/25 22:03 02/04/25 22:03 02/04/25 22:13 Temperature Pulse Rate 107 H 109 H Respiratory Rate 16 16 Blood Pressure Pulse Oximetry 96 Oxygen Delivery Room Air Oxygen Flow Rate 02/05/25 00:00 02/05/25 03:18 02/05/25 03:27 Temperature Pulse Rate 102 H 101 H 102 H Respiratory Rate 16 16 Blood Pressure Pulse Oximetry Oxygen Delivery Oxygen Flow Rate 02/05/25 04:00 02/05/25 05:12 02/05/25 08:21 Temperature 36.8 C Pulse Rate 110 H 112 H 109 H Respiratory Rate 16 Blood Pressure 95/54 L Pulse Oximetry 94 Oxygen Delivery Oxygen Flow Rate 02/05/25 08:26 02/05/25 09:03 02/05/25 09:03 Temperature Pulse Rate 103 H Respiratory Rate 16 Blood Pressure Pulse Oximetry 93 Oxygen Delivery Room Air Room Air Oxygen Flow Rate 02/05/25 09:10 02/05/25 10:52 02/05/25 11:00 Temperature Pulse Rate 103 H 103 H 104 H Respiratory Rate 16 16 21 H Blood Pressure 95/63 L 105/67 Pulse Oximetry 97 97 Oxygen Delivery Room Air Room Air Oxygen Flow Rate 02/05/25 11:05 02/05/25 11:10 02/05/25 11:15 Temperature Pulse Rate 103 H 96 97 Respiratory Rate 18 15 17 Blood Pressure 98/61 L 87/57 L 86/53 L Pulse Oximetry 93 96 96 Oxygen Delivery Nasal Cannula Nasal Cannula Room Air Oxygen Flow Rate 2 2 Intake/Output Intake/Output: Intake & Output 02/02/25 02/03/25 02/04/25 02/05/25 23:59 23:59 23:59 23:59 Intake Total 234 456 0270 350 Output Total 2600 200 1450 1250 Balance -2360 300 804 -900 Meds/Results Medications: Active Medications Generic Name Dose Route Start Last Admin Trade Name Freq PRN Reason Stop Dose Admin Acetaminophen 650 mg 02/04/25 09:44 02/04/25 17:53 Acetaminophen 325 Mg Tablet PO 650 mg Q4H PRN Administration Mild Pain (1-3) or Fever Albuterol/Ipratropium 3 ml 01/29/25 14:00 02/05/25 09:03 Ipratropium 0.5 Mg/Albuterol Sulfate 2.5 Mg Ampul.Neb 3 Ml INHALATION 3 ml Q6HRT SESAR Administration Amoxicillin/Clavulanate Potassium 1 tablet 02/02/25 14:00 02/05/25 07:12 Amoxicillin/Clavulanate K 875-125 Mg Tab PO 1 tablet Q8HR SESAR Administration Atorvastatin Calcium 20 mg 01/19/25 18:00 02/04/25 17:52 Atorvastatin 20 Mg Tablet PO 20 mg QPM SESAR Administration Benzocaine/Butamben/Tetracaine HCl 1 spray 01/29/25 18:22 02/04/25 13:54 Benzocaine/Tetracaine Arcade (*Sp) 56 Ml Aerosol MUCOUS MEM 1 spray Q4HR PRN Administration pain Benzonatate 200 mg 01/29/25 13:00 02/05/25 08:20 Benzonatate 100 Mg Capsule PO 200 mg TID SESAR Administration Dextrose 12.5 gm 01/27/25 05:42 Dextrose 50% 25 Gm/50 Ml Syringe IV PUSH PRN PRN Hypoglycemia Protocol Enoxaparin Sodium 40 mg 01/20/25 09:00 02/04/25 08:42 Enoxaparin 40 Mg/0.4 Ml Syringe SUB-Q 40 mg DAILY SESAR Administration Estradiol 1 mg 01/19/25 09:00 02/05/25 08:20 Estradiol 1 Mg Tablet PO 1 mg DAILY SESAR Administration Glucagon 1 mg 01/27/25 05:42 Glucagon For Inj 1 Mg Vial IM PRN PRN Hypoglycemia Protocol Glucose 15 gm 01/27/25 05:42 Glucose Oral Gel 15 Gm Of Glucse In 37.5 Gm Tube PO PRN PRN Hypoglycemia Protocol Guaifenesin 1,200 mg 02/03/25 09:26 02/05/25 08:20 Guaifenesin 12 Hr 600 Mg Tabcr PO 1,200 mg Q12HR SESAR Administration Dextrose 1,000 mls @ 100 mls/hr 01/27/25 05:42 Dextrose 5% 1,000 Ml IVPB PRN PRN Hypoglycemia Protocol Insulin Aspart 3 - 6 units 01/27/25 06:30 02/05/25 08:01 Insulin Aspart (*Bkc) 100 Units/Ml SUB-Q Not Given ACHS [facility] Protocol Insulin Glargine 10 units 01/25/25 21:00 02/04/25 21:24 Insulin Glargine (*Bkc) 100 Units/Ml SUB-Q 10 units HS SESAR Administration Ipratropium [place] 0.5 mg 01/26/25 07:34 Ipratropium Br 0.02% Inh Soln 0.5 Mg/2.5 Ml Vial INHALATION Q6HRT PRN Wheezing Levalbuterol HCl 0.63 mg 01/26/25 07:34 01/26/25 22:37 Levalbuterol Neb 1.25 Mg/3 Ml INHALATION 0.63 mg Q6HRT PRN Administration Wheezing Metoprolol Tartrate 25 mg 01/26/25 21:45 02/05/25 08:21 Metoprolol Tartrate 25 Mg Tablet PO 25 mg Q12HR SESAR Administration Ondansetron HCl 4 mg 01/19/25 01:20 Ondansetron Inj 4 Mg/2 Ml Vial IV PUSH Q4H PRN Nausea And Vomiting Pantoprazole Sodium 40 mg 01/28/25 09:00 02/05/25 08:21 Pantoprazole 40 Mg Tablet PO 40 mg QAM SESAR Administration Polyethylene Glycol 17 gm 01/24/25 10:15 Polyethylene Glycol 3350 17 Gm Powd.Pack PO QAM PRN Constipation Senna/Docusate Sodium 1 tab 01/24/25 10:20 02/05/25 08:21 Senna/Docusate Sodium Tablet PO Not Given Q12HR SESAR Spironolactone 100 mg 01/19/25 09:00 Spironolactone 50 Mg Tablet PO Q12HR SESAR Radiology Results: ITS Impressions Chest CTA 01/18/25 15:25 IMPRESSION: 1. No pulmonary embolism. 2. Bilateral pneumonia in the lower lobes. Pneumonia in the lingula. Minimal changes of pneumonia in the right middle lobe. Pneumonia in the right upper lobe posteriorly. Follow-up to resolution is advised. Head CT 01/22/25 10:18 Impression: No significant abnormality seen. Chest CT 01/28/25 15:29 IMPRESSION: Interval progression of multifocal consolidation within the bilateral lung martini, now demonstrating cavitation with intracavitary nodule in the lingula for which the differential diagnosis is broad but includes reactivated tuberculosis, aspergillosis, autoimmune etiology and infection versus septic pulmonary emboli (thought to be less likely secondary to cavitary distribution) Chest X-Ray 02/01/25 09:16 IMPRESSION: Bibasilar and perihilar pneumonia. No significant change from previous examination. Cervical Spine MRI 02/01/25 13:22 IMPRESSION: Posterior disc osteophyte complex causing mild spinal canal stenosis at C4-5 and C5-6. Thoracic Spine MRI 02/01/25 13:27 IMPRESSION: MRI of the thoracic spine is within normal limits for age. Lumbar Spine MRI 02/01/25 13:32 IMPRESSION: Asymmetric disc bulges at L2-3 and L3-4 along with facet arthropathy causing mild spinal canal stenosis and mild left neural foraminal narrowing. Correlate with clinical distribution of symptoms. Modified Barium Swallow 02/02/25 09:52 IMPRESSION: Pharyngeal dysphagia with laryngeal penetration without aspiration. Please correlate with speech pathologist findings and specific feeding recommendations. Labs Labs: Laboratory Results - last 24 hr 02/04/25 02/04/25 02/04/25 11:55 16:37 21:15 WBC RBC Hgb Hct MCV MCH MCHC RDW Plt Count MPV Immature Gran % (Auto) Neut % (Auto) Lymph % (Auto) [place] % (Auto) Eos % (Auto) Baso % (Auto) Lymph # (Auto) [place] # (Auto) Eos # (Auto) Baso # (Auto) Abs Immat Gran (auto) Absolute Neuts (auto) Absolute Nucleated RBC Band Neutrophils % Nucleated RBC % Platelet Estimate Macrocytosis Schistocytes Sodium Potassium Chloride Carbon Dioxide Anion Gap BUN Creatinine Estim Creat Clear Calc Estimated GFR Glucose POC Capillary Glucose 165 H 123 H 137 H Calcium Magnesium Total Bilirubin AST ALT Alkaline Phosphatase Total Protein Albumin 02/05/25 02/05/25 06:27 08:58 WBC 11.1 H RBC 2.78 L Hgb 9.2 L Hct 29.6 L MCV 106.5 H MCH 33.1 MCHC 31.1 L RDW 15.3 H Plt Count 494 H MPV 9.5 Immature Gran % (Auto) 0.6 H Neut % (Auto) 77.0 H Lymph % (Auto) 10.9 L [place] % (Auto) 9.5 H Eos % (Auto) 1.3 Baso % (Auto) 0.7 Lymph # (Auto) 1.21 [place] # (Auto) 1.1 H Eos # (Auto) 0.1 Baso # (Auto) 0.1 Abs Immat Gran (auto) 0.07 H Absolute Neuts (auto) 8.5 H Absolute Nucleated RBC 0.000 Band Neutrophils % Not Reportable Nucleated RBC % 0.0 Platelet Estimate Increased Macrocytosis 1+ Schistocytes None seen Sodium 138 Potassium 3.4 Chloride 105 Carbon Dioxide 25 Anion Gap 8 BUN 10 Creatinine 0.48 L Estim Creat Clear Calc 97 Estimated GFR > 60 Glucose 119 H POC Capillary Glucose 104 Calcium 9.3 Magnesium 1.8 Total Bilirubin 0.3 AST 26 ALT 20 Alkaline Phosphatase 73 Total Protein 6.6 Albumin 3.1 L
[2025-02-05] MEDS: ACETAMINOPHEN 325 MG TABLET 650 MG PO (12:26)
[2025-02-05] MEDS: ENOXAPARIN 40 MG/0.4 ML SYRINGE SUB-Q (12:28)
[2025-02-05 12:30] LABS: Glucose Point of Care 97 mg/dl (65-105)
--- NOTE | 2025-02-05 14:37 | PM.DS ---
DS: Admitting Diagnosis Discharge Date 02/05/25 Admitting Diagnosis Altered mental status, DKA, Pneumonia DS: Discharge Diagnosis Discharge Diagnosis (1) DKA (diabetic ketoacidosis): Code(s): E11.10 - Type 2 diabetes mellitus with ketoacidosis without coma Status: Acute (2) Septic shock: Code(s): A41.9 - Sepsis, unspecified organism; R65.21 - Severe sepsis with septic shock Status: Acute (3) Influenza A: Code(s): J10.1 - Influenza due to other identified influenza virus with other respiratory manifestations Status: Acute (4) Staphylococcus aureus bacteremia: Code(s): R78.81 - Bacteremia; B95.61 - Methicillin susceptible Staphylococcus aureus infection as the cause of diseases classified elsewhere Status: Acute DS: Summary Hospital Course Hospital Course: This is a 54-year-old female patient with a past medical history type 2 diabetes on metformin, Jardiance and Ozempic. Unknown other history though medication reconciliation was able to be completed through patient family. Patient is admitted for acute hypoxic respiratory failure with DKA. Patient was on a 7 day cruise with her daughter with stops in [facility], [place] and [facility]. Approximately 4 days ago began to have a cough. After the cough started, patient complained of worsening sore throat. She got to the point about 2 days ago when she quit eating or drinking anything. Her daughter states she has continued to take her medications while not eating or drinking anything including her Jardiance and metformin. Today patient was having trouble breathing but did not want to go to a hospital in [place] so she flew home and family brought her straight to ER from the airport. Patient was very tachypneic and extremely weak. She was intubated to protect airway and ease work of breathing. Initial labs with mild hyperglycemia but severely depleted CO2. ABG showed metabolic acidosis with ineffective respiratory compensation. WBC 10.3 with 23% bandemia. CXR showed pneumonia. Patient started on Cefepime, doxycycline and vancomycin for septic shock with altered mental status, fever, tachycardia, tachypnea. Lactic acid was normal at 1.0. CRP >45, Beta-hydroxybutyrate 7.79, urine with 3+ glucose and 3+ ketones. Viral swab was positive for Influenza A and patient was started on Tamiflu in ER. Procalcitonin was 7.4 ng/mL which is highly suggestive of systemic bacterial infection. Antibiotics will be continued. Ketoacidosis likely multifactorial including starvation, dehydration, diabetic and Jardiance related. Insulin drip started after IV fluid resuscitation. Initial Anion Gap calculated at 31 in ER, down to 12 by 2300. Insulin drip turned off and LR infusion at 75 mL/hr started. Q4H fingerstick glucose with SSI and Lantus 12 units given. Patient has been on 1 unit/hr of insulin drip since around 1700. She did get one amp of D50 to keep glucose up enough to finish closing anion gap. CO2 remains low but much improved. Potassium will be replaced by OG tube. Will hold all diabetic medications except insulin right now. Patient was managed for Septic shock, managed with antibiotics and pressors, successfully weaned off pressors and blood culture positive MSSA. rpeat cultures were negative and patient underwent PEPITO which showed no valvular disease. Patient was thus discharged on 1 more week of high dose Augmentin to complete a total of 4 weeks of abx. MSSA source is from pneumonia. weaned to room air. Pulmonology, cardiology involced her care. TB was ruled out with Quantiferon test Managed for pneumonia with acute hypoxemic respiratory failure, Flu. comopleted tamiflu and continue abx as noted above Also managed for DKA, patient noted her home regimen has been controlling her Diabetes adequately and she went into DKA due to flu illness as she did not take her meds for the 3 days prior to admission. 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 patient is ambulating with and patient will follow up with neurology for EMG and NCS outpatient. F/u with PCP in 3-5 days F/u with Pulmonology and Neurology as instructed. Time Spent with Patient Time attestation: Total time spent providing and/or coordinating discharge services: DS: Data Data Completed and Pending Labs on day of discharge: Labs from last 24 hours 02/05/25 02/05/25 02/05/25 12:24 08:58 06:27 WBC 11.1 H RBC 2.78 L Hgb 9.2 L Hct 29.6 L MCV 106.5 H MCH 33.1 MCHC 31.1 L RDW 15.3 H Plt Count 494 H MPV 9.5 Immature Gran % (Auto) 0.6 H Neut % (Auto) 77.0 H Lymph % (Auto) 10.9 L [place] % (Auto) 9.5 H Eos % (Auto) 1.3 Baso % (Auto) 0.7 Lymph # (Auto) 1.21 [place] # (Auto) 1.1 H Eos # (Auto) 0.1 Baso # (Auto) 0.1 Abs Immat Gran (auto) 0.07 H Absolute Neuts (auto) 8.5 H Absolute Nucleated RBC 0.000 Band Neutrophils % Not Reportable Nucleated RBC % 0.0 Platelet Estimate Increased Macrocytosis 1+ Schistocytes None seen Sodium 138 Potassium 3.4 Chloride 105 Carbon Dioxide 25 Anion Gap 8 BUN 10 Creatinine 0.48 L Estim Creat Clear Calc 97 Estimated GFR > 60 Glucose 119 H POC Capillary Glucose 97 104 Calcium 9.3 Magnesium 1.8 Total Bilirubin 0.3 AST 26 ALT 20 Alkaline Phosphatase 73 Total Protein 6.6 Albumin 3.1 L 02/04/25 02/04/25 21:15 16:37 WBC RBC Hgb Hct MCV MCH MCHC RDW Plt Count MPV Immature Gran % (Auto) Neut % (Auto) Lymph % (Auto) [place] % (Auto) Eos % (Auto) Baso % (Auto) Lymph # (Auto) [place] # (Auto) Eos # (Auto) Baso # (Auto) Abs Immat Gran (auto) Absolute Neuts (auto) Absolute Nucleated RBC Band Neutrophils % Nucleated RBC % Platelet Estimate Macrocytosis Schistocytes Sodium Potassium Chloride Carbon Dioxide Anion Gap BUN Creatinine Estim Creat Clear Calc Estimated GFR Glucose POC Capillary Glucose 137 H 123 H Calcium Magnesium Total Bilirubin AST ALT Alkaline Phosphatase Total Protein Albumin Preliminary micro results at discharge 02/02/25 11:37 Blood Culture - Preliminary Blood 02/02/25 11:46 Blood Culture - Preliminary Blood Discharge Plan Discharge Attending physician on discharge: Promise Colon Consulting providers: Vipul Domingo; Simon Cerda; Kourtney Silvestre; Lauren Griffin; Daysi Shaver; Bety Dockery Discharging Clinician: Promise Colon Anticipated Discharge Date/Time: 02/05/25 14:27 Patient Disposition: Home Activity: as tolerated Diet: as tolerated Patient Instructions: Antibiotic Form, Diabetic Ketoacidosis (GEN), Pneumonia (GEN) Patient Language: [place] Stand Alone Forms: General Discharge Information Follow-up/Referrals: Lauren Griffin MD [Physician] - (F/u with neurology as instructed) Vipul Domingo MD [Physician] - (F/u with Pulmonology as instructed ) Lv Rain M.D. [Primary Care Provider] - (F/u with PCP in 3-5 days ) Discharge Medications: New amoxicillin-pot clavulanate 875-125 mg tablet 1 tablet PO TID 7 Days Qty: 21 0RF Combivent Respimat 20-100 mcg/actuation mist 1 puff inhalation Q4H PRN (Reason: shortness of breath or wheezing) Qty: 4 0RF Continued cyclobenzaprine 10 mg tablet 10 mg PO TID atorvastatin 20 mg tablet 20 mg PO QPM nabumetone 750 mg tablet 750 mg PO .q12hr metoprolol succinate 50 mg tablet extended release 24 hr 50 mg PO DAILY spironolactone 100 mg tablet 100 mg PO Q12H estradiol 1 mg tablet 1 mg PO DAILY metformin 500 mg tablet extended release 24 hr 500 mg PO .Q12HR Jardiance 10 mg tablet 10 mg PO DAILY Ozempic 2 mg/dose (8 mg/3 mL) pen injector 2 mg SUBCUT WEEKLY Patient Comments: typically injects Saturdays Other Ambulatory Orders: Nerve Conduction Study EMG (Routine) Timeframe: 1 Week Location: Determined by Patient Ordered By: Lauren Griffin Date of admission: 01/18/25 16:47 Primary Care Provider: Lv Rain Admitting Provider: Elif Coyne Attending physician on admission: Elif Coyne Condition: Critical
== END 2025-02-05 15:25 | disposition home or self-care (01) | DRG 870 ==
LOC: ANHED 16:44 → ANHICU 17:13 → ANH3MED 02-04 15:08 → ANHICU 02-08 09:05 → ANHIMU 02-08 09:05
PROVIDERS: General Practice; Internal Medicine; Internal Medicine Pulmonary Disease; Nurse Practitioner; Admitting Provider Family Medicine; Emergency Provider Emergency Medicine; PCP Family Medicine; Visit Provider Internal Medicine
PROC: B24BZZ4 Ultrasonography of Heart with Aorta, Transesophageal (ICD-10-PCS; CPT 93312; principal; 2025-02-05 11:00)
DX: A41.01 Sepsis due to Methicillin susceptible Staphylococcus aureus (principal); R65.21 Severe sepsis with septic shock; J15.211 Pneumonia due to Methicillin susceptible Staphylococcus aureus; J10.08 Influenza due to other identified influenza virus with other specified pneumonia; J96.01 Acute respiratory failure with hypoxia; E11.10 Type 2 diabetes mellitus with ketoacidosis without coma; G93.40 Encephalopathy, unspecified; E87.0 Hyperosmolality and hypernatremia; I95.89 Other hypotension; M21.371 Foot drop, right foot; R13.10 Dysphagia, unspecified; T17.208A Unspecified foreign body in pharynx causing other injury, initial encounter; R00.0 Tachycardia, unspecified; I10 Essential (primary) hypertension; M35.00 Sjogren syndrome, unspecified; I73.00 Raynaud's syndrome without gangrene; E28.2 Polycystic ovarian syndrome; E78.5 Hyperlipidemia, unspecified
CPT/HCPCS: 31500; 36415; 36600; 43752; 70450; 71045; 71250; 71275; 72141; 72146; 72148; 74018; 74230; 80048; 80053; 80202; 81001; 82010; 82375; 82550; 82607; 82728; 82746; 82805; 82948; 83036; 83050; 83540; 83550; 83605; 83690; 83735; 83880; 84100; 84132; 84145; 84439; 84443; 84480; 85018; 85025; 85027; 85055; 85610; 85730; 86140; 86480; 87040; 87070; 87181; 87205; 87637; 87641; 92526; 92610; 92611; 93005; 93312; 93320; 93325; 94002; 94003; 94640; 94667; 96361; 96365; 96367; 96375; 97110; 97116; 97163; 97167; 97530; 97535; 99291; A9270; C1751; C8929; J0690; J0692; J1171; J1650; J1815; J2020; J2060; J2185; J2250; J2371; J2470; J2700; J2919; J3010; J3370; J3475; J3480; J7030; J7040; J7050; J7070; J7120; P9047; Q9957; Q9967

== ENCOUNTER 2025-02-24 10:57 | Outpatient (RCR) | payer OTHER, SELFPAY ==
--- NOTE | 2025-02-24 12:43 | OPREHPOC ---
Outpatient Therapy Plan of Care This is a Multidisciplinary Plan of Care that may contain components documented by all disciplines (PT, OT, and ST.) PT Problem 1 PT Problem #1 Knowledge Deficit PT Goal 1 Goal / Goal Update The patient will be independent in a home exercise program. Target Visit 2 PT Problem 2 PT Problem #2 Impaired Functional Mobility PT Goal 1 Goal / Goal Update The patient will demonstrate 20% or less self perceived disability per the LEFS questionnaire. The patient will ambulate 1,000 feet during the 6 MWT to improve community ambulation. Target Visit 10 PT Problem 3 PT Problem #3 Impaired Strength PT Goal 1 Goal / Goal Update The patient will demonstrate 4/5 bilateral hip abduction and extension strength to improve gait and balance. The patient will demonstrate 2+/5 or greater right ankle dorsiflexion and eversion strength to improve gait and balance. Target Visit 10 PT Problem 4 PT Problem #4 Impaired Balance PT Goal 1 Goal / Goal Update The patient will score 25 or greater on the Tinetti Balance Scale indicating a low fall risk. Target Visit 10
--- NOTE | 2025-02-24 12:43 | PTOPEVAL1 ---
Assessment and note entered by Tiesha Correia, PT Evaluation Information Assessment Status Evaluation Diagnosis R foot drop Other ICD-10 Condition Codes ( M21.371 PT) Subjective Information Kimberly Mixon reports she was on a cruise from 01[place]10 [place]01[place]17 and she got sick. She does not remember the last 2 days of the trip. She went straight to the ER upon returning home and was admitted to ICU with respiratory failure, sepsis, flu, pneumonia, and diabetic ketacidosis. She was on a ventilator for 8 days and in the ICU for 10 days. She was then in the step down ICU and then the medical floor. She was hospitalized for 3 weeks total. She realized she had foot drop after coming off the ventilator. She is scheduled for a NCV in May. She had MRI's of her entire spine while in the hospital and she has bulging discs and stenosis but was told it is not in the area that would cause foot drop. She has constant neck and lower back pain but it is chronic and was present prior to her hospitalization. She has seen a neurologist and was told she most likely has a pinched nerve. She notes numbness along the outer side of the right lower leg and she can not feel the top of her foot at all. She has been using an AFO which has helped her walk. She had PT in the hospital and has been using a band to try and strengthen her leg. She is unable to lift her toes off the ground though and can not lift her foot up. She is using a night brace as well. She denies falls and has been using her AFO as soon as she gets out of bed and out of the shower. She notes a throbbing pain around her right ankle with walking and standing more than 10-15 minutes. She also has more pain in the evening after being on her feet all day. Reported Pain Level Pain Score 4: Self Report Assessment PT Clinical Summary Kimberly Mixon presents with right foot drop following a 3 week hospital stay for pneumonia, respiratory failure, diabetic ketoacidosis, influenza, staph infection, and sepsis. She spent 8 days on a ventilator and noticed the foot drop after coming off the ventilator. She has seen a neurologist and a NCV is ordered but she could not get in to have it done until May 2025. She was prescribed an AFO. She has difficulty with walking and standing more than [address]. She demonstrates zero strength in the right ankle dorsiflexors and trace strength in the right ankle evertors. She has altered gait, decreased balance, and weakness in the hip girdle as well. She currently demonstrates a moderate fall risk. She will benefit from skilled PT to address these limitations. Plan of Care Interventions Electrical Stimulation,Gait Training,Manual Therapy,Neuro Re-education,Patient/Caregiver Education,Therapeutic Activities,Therapeutic Exercise PT Services Indicated Yes Treatment Frequency and 2 times a week for 10 visits Duration These treatments will address the objective and functional deficits as defined above. The patient will be advanced safely and appropriately in order for the patient to progress towards his/her prior level of function. Additional exercises will be introduced and as well as a comprehensive home exercise program upon discharge, if needed, ?to ensure carryover of functional gains achieved in the clinic. This treatment plan has been reviewed and agreement upon by the patient.
--- NOTE | 2025-03-26 14:03 | OPREHPOC ---
Outpatient Therapy Plan of Care This is a Multidisciplinary Plan of Care that may contain components documented by all disciplines (PT, OT, and ST.) PT Problem 1 PT Problem #1 Knowledge Deficit PT Goal 1 Goal / Goal Update The patient will be independent in a home exercise program. Target Visit 2 Progress Met PT Problem 2 PT Problem #2 Impaired Functional Mobility PT Goal 1 Goal / Goal Update The patient will demonstrate 20% or less self perceived disability per the LEFS questionnaire. The patient will ambulate 1,000 feet during the 6 MWT to improve community ambulation. -not met Target Visit 10 Progress Not Met PT Problem 3 PT Problem #3 Impaired Strength PT Goal 1 Goal / Goal Update The patient will demonstrate 4/5 bilateral hip abduction and extension strength to improve gait and balance. -met The patient will demonstrate 2+/5 or greater right ankle dorsiflexion and eversion strength to improve gait and balance. -not met Target Visit 10 Progress Partially Met PT Goal 2 Goal / Goal Update Pt to improve bilat hip flexion, extension and abduction strength to 5/5. PT Problem 4 PT Problem #4 Impaired Balance PT Goal 1 Goal / Goal Update The patient will score 25 or greater on the Tinetti Balance Scale indicating a low fall risk. Target Visit 10 Progress Met
--- NOTE | 2025-03-26 14:04 | PTOPPROG ---
Assessment and note entered by Marian Sinclair, PT Evaluation Information Assessment Status Progress Diagnosis R foot drop Other ICD-10 Condition Codes ( M21.371 PT) Onset 01/10/2025 Subjective Information Kimberly presents today for her 10 skilled PT visit. She reports her back is causing her more pain than usual today. She has continued to use her electrical stim machine at home as well as perform her exercises. She has verbalized during previous sessions that she feels like her exercises are beneficial and have started to help improve her strength. She got a nerve conduction test approx. 2 weeks ago which showed no response in the R anterior tibialis and only slight response in the R peroneal muscles. She continues to ambulate wearing an AFO on the R foot. Assessment PT Clinical Summary Mrs. Mixon has attended 10 skilled PT visits addressing R drop foot following septic infection and ICU admission. She demonstrates improved hip strength and balance on level surfaces, however she continues to demonstrate very little to no active movement of the ankle in dorsiflexion and eversion likely due to nerve damage from sepsis, and also demonstrates impaired dynamic balance especially on uneven surfaces. She will benefit from continued skilled PT intervention to make further progress in hip and ankle strengthening and balance to be able to perform functional and recreational activities with improved safety. Plan of Care Interventions Electrical Stimulation,Gait Training,Manual Therapy,Neuro Re-education,Patient/Caregiver Education,Therapeutic Activities,Therapeutic Exercise PT Services Indicated Yes Treatment Frequency and 2x/week for 12 additional visits Duration These treatments will address the objective and functional deficits as defined above. The patient will be advanced safely and appropriately in order for the patient to progress towards his/her prior level of function. Additional exercises will be introduced and as well as a comprehensive home exercise program upon discharge, if needed, ?to ensure carryover of functional gains achieved in the clinic. This treatment plan has been reviewed and agreement upon by the patient.
--- NOTE | 2025-04-16 18:16 | PTOPPROG ---
Assessment and note entered by Marian Sinclair PT Evaluation Information Assessment Status Progress Diagnosis R foot drop Other ICD-10 Condition Codes ( M21.371 PT) Onset 01/10/2025 Subjective Information Kimberly presented today for PT treatment session performed by Caryn Young PTA. Pt has 4 remaining visits in her POC and due to insurance policy, we will be transition from 2x/week to 1x/ week for the remaining 4 visits. Pt has continued to be diligent with her HEP and we have also begun to observe active dorsiflexion of the R ankle in a gravity minimized position. Assessment PT Clinical Summary Mrs. Mixon was seen today for her PT treatment session. Since her last progress visit we have begun to see active R ankle dorsiflexion in a gravity minimized position. Upon discussion with pt, due to insurance policy limitations we decided to change her frequency from 2x/week to 1x/week for the 4 remaining visits in her PT POC. Pt is agreeable to this change in frequency and she has remained diligent in her HEP. Plan of Care Interventions Electrical Stimulation,Gait Training,Hot Pack/Cold Pack,Manual Therapy,Neuro Re-education,Patient/ Caregiver Education,Therapeutic Activities, Therapeutic Exercise PT Services Indicated Yes Treatment Frequency and Change frequency to 1x/week for 4 remaining visits Duration in current POC. These treatments will address the objective and functional deficits as defined above. The patient will be advanced safely and appropriately in order for the patient to progress towards his/her prior level of function. Additional exercises will be introduced and as well as a comprehensive home exercise program upon discharge, if needed, ?to ensure carryover of functional gains achieved in the clinic. This treatment plan has been reviewed and agreement upon by the patient.
--- NOTE | 2025-05-14 11:15 | OPREHPOC ---
Outpatient Therapy Plan of Care This is a Multidisciplinary Plan of Care that may contain components documented by all disciplines (PT, OT, and ST.) PT Problem 1 PT Problem #1 Knowledge Deficit PT Goal 1 Goal / Goal Update The patient will be independent in a home exercise program. Target Visit 2 Progress Met PT Problem 2 PT Problem #2 Impaired Functional Mobility PT Goal 1 Goal / Goal Update The patient will demonstrate 20% or less self perceived disability per the LEFS questionnaire. The patient will ambulate 1,000 feet during the 6 MWT to improve community ambulation. -progress Target Visit 10 Progress Not Met PT Problem 3 PT Problem #3 Impaired Strength PT Goal 1 Goal / Goal Update The patient will demonstrate 4/5 bilateral hip abduction and extension strength to improve gait and balance. -met The patient will demonstrate 2+/5 or greater right ankle dorsiflexion and eversion strength to improve gait and balance. -met Target Visit 10 Progress Met PT Goal 2 Goal / Goal Update Pt to improve bilat hip flexion, extension and abduction strength to 5/5. -met Progress Met PT Problem 4 PT Problem #4 Impaired Balance PT Goal 1 Goal / Goal Update The patient will score 25 or greater on the Tinetti Balance Scale indicating a low fall risk. Target Visit 10 Progress Met
--- NOTE | 2025-05-14 11:15 | PTOPDC ---
Assessment and note entered by Marian Sinclair, PT Evaluation Information Assessment Status Discharge Diagnosis R foot drop Other ICD-10 Condition Codes ( M21.371 PT) Onset 01/10/2025 Subjective Information Kimberly enters the clinic feeling positive today because she has started to walk without her AFO. She states she has been working very hard this week to continue strengthening her ankle to help swing her toe through when walking. She states she does have to concentrate on bringing the foot up still when walking but so far she's been able to walk well without it. She does report slightly higher ankle pain due to nerve issues but states her back is feeling pretty good this morning. Reported Pain Level Pain Score 3,4: Self Report Assessment PT Clinical Summary Mrs. Mixon has attended 20 skilled PT visits addressing foot drop, balance and functional decline following hospitalization. Since starting PT and since her last re-evaluation she has made excellent progress in her ability to dorsiflex and tay her R foot and demonstrates good improvements in strength of these mm as well as strength of her hips. She has also made progress toward her 6MWT goal and has also transitioned to ambulating without her AFO and only using it for unstable environments. Due to insurance policy restrictions she will be discharging from skilled PT this date but she is educated in her HEP and demonstrates good motivation and adherence. Plan of Care PT Services Indicated No
== END 2025-05-14 14:54 | disposition home or self-care (01) ==
LOC: CHSPT 10:57
PROVIDERS: Visit Provider Family Medicine
DX: M21.371 Foot drop, right foot (principal)
CPT/HCPCS: 97110; 97112; 97140; 97150; 97162; 97530

== ENCOUNTER 2025-03-11 09:07 | Outpatient (CLI) | payer OTHER, SELFPAY ==
--- NOTE | ~2025-03-11 | CT_ITS ---
CT Scan of the Chest without Contrast: Clinical Indication: Pneumonia Technique: Contiguous sections were acquired throughout the chest without intravenous contrast. Dose reduction technique was used on this scan by utilizing automated exposure control and iterative recon struction technique. The dose-length product (DLP) was 156.01 mGy-cm. COMPARISON: 01/28/2025 Findings: There is no evidence of any significant mediastinal, hilar or axillary lymphadenopathy. The mediastin al soft tissues appear normal. There is no evidence of pleural or pericardial effusion. There are patchy areas of groundglass opacity with small focal areas of slightly more confluent conso lidation, predominantly in the lower lobes and lingula, with minimal involvement in the right upper l obe and right middle lobe. Findings overall markedly improved as compared to prior exam. Cavitary les ion seen previously in the left upper lobe is nearly completely resolved. Images through the upper abdomen reveal no abnormalities. Impression: Marked interval improvement in bilateral pneumonia since prior exam. There are persistent/residual pa tchy areas of groundglass opacity and consolidation, as detailed above. Reviewed, dictated and finalized at location M. Impression: Marked interval improvement in bilateral pneumonia since prior exam. There are persistent/residual patchy areas of groundglass opacity and consolidation, as d etailed above.
== END 2025-03-11 09:08 | disposition home or self-care (01) ==
LOC: MICIMG 09:08
PROVIDERS: PCP Family Medicine; Visit Provider Internal Medicine Pulmonary Disease
DX: J15.211 Pneumonia due to Methicillin susceptible Staphylococcus aureus (principal); J18.9 Pneumonia, unspecified organism; J98.4 Other disorders of lung
CPT/HCPCS: 71250

== ENCOUNTER 2025-03-18 13:18 | Outpatient (CLI) | payer OTHER, SELFPAY ==
--- OUTSIDE RECORDS SUMMARY | 2025-03-18 13:22 | XMS_ITS | Encounter Summary ---
Author Organization [facility] Address [address] [place] [address] Care Team Providers Care Technical Coordinator Name Role Phone Lv Rain MD Primary Care Provider [phone] Saul Li MD Unavailable [phone] Nilo Dejesus MD Unavailable [phone] Faith Bautista PA-C Unavailable [phone] Encounter Details Date Type Department Care Team (Late st Contact Info) Description 01/17/2019 Abstract SFL CONVERSION [address] [place], [place] [id number] , Generic Conversion, Social History Tobacco Use Types Packs/Day Years Used Date Smoking Tobacco: Never Assessed Comments Unknown Sex and Gender Information Value Date Recorded Sex Assigned at Female 10/19/2024 11:42 AM CDT Legal Sex Female 5:54 PM ANIMAL CARE GIVER Gender Identity Not on file Sexual Orientation Not on file documented as of this encounter Plan of Treatment Upcoming Encounters Date Type Department Care Team (Late Contact Info) Description 04/07/2025 10:15 AM CDT Office Visit [facility] [address] [place] [address] Nilo Dejesus MD [address] [place] [address] documented as of this encounter Visit Diagnoses Not on filedocumented in this encounter Additional Health Concerns Infection Onset Date Last Indicated Resolved Time COVID-19 Rule Out 06/17/2020 06/17/2020 06/19/2020 9:47 AM ANIMAL CARE GIVER COVID-19 Rule Out 09/12/2021 09/12/2021 09/12/2021 7:59 AM ANIMAL CARE GIVER documented as of this encounter Care Teams Technical Coordinator Relationship Specialty Start Date End Date Lv Rain MD [address] [place] [phone] PCP - General FAMILY PRACTICE 05/08/19 Saul Li MD [address] [place] [address] INTERVENTIONAL CARDIOLOGY 05/27/2002/10 Nilo Dejesus MD [address] [place] [address] Consulting Physician CLINICAL CARDIAC ELECTROPHYSIOLOGY 02/06/23 Faith Bautista PA-C [address] [place] [address] Referring Physician PHYSICIAN DRAWBRIDGE TENDER 04/06/24 documented as of this encounter
--- OUTSIDE RECORDS SUMMARY | 2025-03-18 13:22 | XMS_ITS | Clinical Summary ---
Author Organization [facility] Address [address] [address] Care Team Providers Care Felt Hat Mellowing Machine Operator Name Role Phone Unavailable Primary Care Provider Unavailabl e Source Comments [facility],non-owned Affiliates and Associated Physician Practices is amultiple site organization consisting of ambulatory clinics and hospital sitesin [place], [place], [place] and [place]. This disclosure is being madepursuant to the Care Everywhere program and may not contain all information available regarding this patient. Last updated 18.[facility] [employer] Social History Tobacco Use Types Packs/Day Years Used Date Smoking Tobacco: Never Assessed Comments Unknown Sex and Gender Information Value Date Recorded Sex Assigned at Not on file Legal Sex Female 6:24 AM MEAT GRADER Gender Identity Not on file Sexual Orientation [...] of 3 - 19+ 3-dose series) 1990 PAP SMEAR 1992 PNEUMOCOCCAL VACCINE 50+ (1 of 1 - PCV) 2021 ZOSTER VACCINE (1 of 2) 2021 COVID-19 VACCINE (1 - 2023-2 5 season) 2024 DEPRESSION SCREENING 08/12/2024 INFLUENZA VACCINE (#1) 2025 HIB VACCINE Aged Out No longer [...] on patient's age to complete this topic Insurance SELF PAY NO INSURANCE Member Subscriber Plan / Payer (Ef fective for All Dates) Name:Kimberly Pearson Member ID:Not on file Relation to Subscriber:Not on file Name:KIMBERLY PEARSON Subscriber ID:Not on file (Home) Address: [address] [place] [address] Payer ID:Not on file Group ID:Not on file Type:Self Pay Address: [place], [place] [facility]
--- OUTSIDE RECORDS SUMMARY | 2025-03-18 13:22 | XMS_ITS | Encounter Summary ---
Author Organization [facility] Address [address] [place] [address] Care Team Providers Care Advertising Dispatch Clerks Supervisor Name Role Phone Lv Rain MD Primary Care Provider [phone] Saul Li MD Unavailable [phone] Nilo Dejesus MD Unavailable [phone] Faith Bautista PA-C Unavailable [phone] Encounter Details Date Type Department Care Team (Late Contact Info) Description 01/25/2021 [facility] Patient Accounts [address] [place] [address] [facility]: Account [id number] Social History Tobacco Use Types Packs/Day Years Used Date Smoking Tobacco: Never Smokeless Tobacco: Never Alcohol Use Standard Drinks/Week Comments Yes 0 (1 standard drink = 0.6 oz pur e alcohol) Occasional Comments No Sex and Gender Information Value Date Recorded Sex Assigned at Female 10/19/2024 11:42 AM CDT Legal Sex Female 5:54 PM SHIP CLEANER Gender Identity Not on file Sexual Orientation Not on file Occupation Industry Job Start Date Job End Date Not on file Not on file Not on file Not on file COVID-19 Exposure Response Date Recorded In the last month, have you been in contact with someone who was confirmed or suspected to have Coronavirus / COVID-19? No / Unsure 01/23/2021 10:21 AM CDT documented as of this encounter Plan of Treatment Upcoming Encounters Date Type Department Care Team (Late Contact Info) Description 04/07/2025 10:15 AM CDT Office Visit [facility] [address] [place] [phone] Nilo Dejesus MD [address] [place], [place] [address] documented as of this encounter Visit Diagnoses Not on filedocumented in this encounter Additional Health Concerns Infection Onset Date Last Indicated Resolved Time COVID-19 Rule Out 09/12/2021 09/12/2021 09/12/2021 7:59 AM SHIP CLEANER documented as of this encounter Care Teams Advertising Dispatch Clerks Supervisor Relationship Specialty Start Date End Date Lv Rain MD [address] [place] [address] PCP - General FAMILY PRACTICE 05/08/19 Saul Li MD [facility] [place] [address] INTERVENTIONAL CARDIOLOGY 05/27/2002/10 Nilo Dejesus MD [address] [place] [address] Consulting Physician CLINICAL CARDIAC ELECTROPHYSIOLOGY 02/06/23 Faith Bautista PA-C [address] [place], [place] [address] Referring Physician PHYSICIAN BANK OFFICER 04/06/24 documented as of this encounter
--- OUTSIDE RECORDS SUMMARY | 2025-03-18 13:22 | XMS_ITS | Clinical Summary ---
Author Organization [facility] Address [address] [place] [address] Care Team Providers Care Repairer Auto Clocks Name Role Phone Lv Rain MD Primary Care Provider [phone] Nilo Dejesus MD Unavailable [phone] Fatih Bautista PA-C Unavailable [phone] Allergies Active Allergy Reactions Criticality Noted Date Comments Sulfa Antibiotics Hives,Rash Medium 06/23/2019 Medications cyclobenzaprine 10 MG tablet Take 1 tablet (10 mg total) by mouth 3 (three) times daily. 2 06/05/2019 Active metFORMIN ER 500 MG 24 hr tablet Take 1 tablet (500 mg total) by mouth 2 (two) times daily with meals. 11 06/05/2019 Active nabumetone 750 MG tablet Take 1 tablet (750 mg total) by mouth 2 (two) times daily. 2 06/05/2019 Active omeprazole 20 MG capsule Take 1 capsule (20 mg total) by mouth 2 (two) times daily. 11 06/05/2019 Active [place]-3 Fatty Acids (FISH OIL) 1200 MG CAPSULE DELAYED RELEASE Take 1 capsule by mouth daily. Active Multiple Vitamins-Mineral s (MULTIVITAMIN ADULT OR) Take 1 tablet by mouth daily. Active atorvastatin 20 MG tablet Take 1 tablet (20 mg total) by mouth nightly at bedtime. at bedtime. 08/04/2020 Active OZEMPIC 2 mg/dose injection (PEN) 03/13/2024 Act liliana spironolactone (ALDACTONE) 50 MG tablet Take 1 tablet (50 mg total) by mouth 2 (two) times daily. Active estradiol (ESTRACE) 1 MG tablet Take 1 tablet (1 mg total) by mouth daily. 06/21/2024 Active JARDIANCE 10 MG tablet Take 1 tablet (10 mg total) by mouth daily. 09/30/2024 Active metoprolol succinate ER (TOPROL-XL) 50 MG 24 hr tabletIndication s:Sinus tachycardia TAKE 1 TABLET BY MOUTH TWICE A DAY 180 tablet 3 12/21/2024 Active Active Problems Problem Noted Date Diagnosed Date Orthopedic aftercare 06/02/2024 Pressure injury of left heel, stage 1 06/02/2024 Closed non-physeal fracture of proximal phalanx of lesser toe of left foot with routine healing, subsequent encounter 05/13/2024 Rotator cuff tear arthropathy, left 07/19/2020 Nontraumatic complete tear of left rotator cuff 05/31/2020 Osteoarthritis of left AC (acromioclavicular) palma int 05/31/2020 Shoulder impingement syndrome, left 01/18/2020 Sinus tachycardia 06/26/2019 Mixed hyperlipidemia 06/26/2019 H/O Raynaud's syndrome Immunizations Immunization Administration Dates Next Due MODERNA COVID-19 (HAIR COLORIST CHAMP SOPHIE), MRNA, LNP-S, PF, 50 MCG/ 0.25 ML DOSE 07/13/2021 Family History Medical History Relation Comments Diabetes Father Heart Attack Father Stent Cardiac Father Heart Attack Maternal Grandfather Open Heart Maternal Grandfather Stroke Maternal Grandfather Stroke Maternal Grandmother CHF Mother Diabetes Mother Thyroid Disease Mother No Known Problems Paternal Grandfather No Known Problems Paternal Grandmother No Known Problems Sister Relation Status Comments Father Alive Maternal Grandfather Maternal Grandmother Mother Paternal Grandfather Paternal Grandmother Sister Alive Social History Tobacco Use Types Packs/Day Years Used Date Smoking Tobacco: Never Smokeless Tobacco: Never Tobacco Cessation:Counseling Given: Not Answered Alcohol Use Standard Drinks/Week Comments Yes 0 (1 standard drink = 0.6 oz pur e alcohol) Occasional Comments No Sex and Gender Information Value Date Recorded Sex Assigned at Female 10/19/2024 11:42 AM CDT Legal Sex Female 5:54 PM ROTARY DRIER FEEDER Gender Identity Not on file Sexual Orientation Not on file Occupation Industry Job Start Date Job End Date Not on file Not on file Not on file Not on file Last Filed Vital Signs Vital Sign Reading Time Taken Comments Blood Pressure 109/68 05/18/2024 3:31 PM CDT Pulse 90 05/18/2024 3:31 PM CDT Temperature 36.3 C (97.3 F) 05/18/2024 3:16 PM CDT Respiratory Rate 16 05/18/2024 3:31 PM CDT Oxygen Saturation 100% 05/18/2024 3:31 PM CDT Inhaled Oxygen Concentration - - Weight 61.2 kg (135 lb) 10/19/2024 11:43 AM CDT Height 165.1 cm (5' 5) 10/19/2024 11:43 AM CDT Body Mass Index 22.47 10/19/2024 11:43 AM CDT Plan of Treatment Upcoming Encounters Date Type Department Care Team (Late st Contact Info) Description 04/07/2025 10:15 AM CDT Office Visit [facility] [place] [address] Nilo Dejesus MD [address] [place] [address] Health Maintenance Due Date Last Done Comments Annual Physical 1974 Hepatitis C 1989 DTaP, Tdap and Td Vaccines (1 - Tdap) 1990 Hepatitis B Vaccines (1 of 3 - 19+ 3-dose series) 1990 Pneumococcal Vaccine: 50+ Years (1 of 1 - PCV) 2021 Zoster Vaccines (1 of 2) 2021 COVID-19 Vaccine (5 - 2023- season) 2024 05/04/2022, 07/13/2021, 11/11/2020, Additional history exists Mammogram Screening 03/13/2026 03/13/2024 Colorectal Cancer Screening Colonoscopy (10 Years) 09/15/2031 09/15/2021, 09/15/2021 Meningococcal B Vaccine Aged Out No l onger eligible based on patient's age to complete this topic Meningococcal Vaccine Aged Out No arvin verona eligible based on patient's age to complete this topic RSV Immunizations Under 20 Months Aged Out No longer eligible based on patient's age to complete this topic Medical Devices Implanted Type Area Exhauster Device Identifier Shelf Expiration Date Model / Serial / Lot Suture [place], Swivelock Tenodesis, Biocomposite 7x19.1mm - [id number] Implanted:Qty: 1 on 06/20/2020 by Xander Botello MD at [facility] [place] Left: Shoulder [employer] 05/11/2021 AR-1662BC C-7 / / [id number] [place] Suture Arthrex - [id number] Implanted:Qty: 1 on 06/20/2020 by Xander Botello MD at [facility] [place] Left: Shoulder [employer] 02/09/2024 AR-2324BC M / / [id number] [place] Suture [employer] - [id number] Implanted:Qty: 1 on 06/20/2020 by Xander Botello MD at [facility] [place] Left: Shoulder [employer] 02/09/2024 AR-2324BC M / / [id number] [place] Suture Bio-Swivelock C Arthrex White/Black 4.75 X 19.1mm - [id number] Implanted:Qty: 1 on 06/20/2020 by Xander Botello MD at [facility] [place] Left: Shoulder [employer] 01/10/2024 AR-2324BC CTT / / [id number] [place] Suture Bio-Swivelock C [employer]rex - [id number] Implanted:Qty: 1 on 06/20/2020 by Xander Botello MD at [facility] [place] Left: Shoulder [employer] 01/10/[address] AR-[address] / / [id number] Procedures Procedure Name Priority Date/Time Associated Diagnosis Comments COLONOSCOPY 09/15/2021 7:58 AM ROTARY DRIER FEEDER from Last 3 Months or Most Recently Relevant to Health Maintenance Results * COLONOSCOPY (09/15/2021 7:58 AM ROTARY DRIER FEEDER) Pedro López MD GI PROCEDURE ORDERABLES Final Result from Last 3 Months or Most Recently Relevant to Health Maintenance Insurance [employer] Care Teams Repairer Auto Clocks Relationship Specialty Start Date End Date Lv Rain MD [address] [place] [phone] PCP - General FAMILY PRACTICE 05/08/19 Nilo Dejesus MD [address] [place] [address] Consulting Physician CLINICAL CARDIAC ELECTROPHYSIOLOGY 02/06/23 Faith Bautista PA-C [address] [place] [address] Referring Physician PHYSICIAN PRODUCT DEVELOPMENT MANAGER 04/06/24
--- OUTSIDE RECORDS SUMMARY | 2025-03-18 13:22 | XMS_ITS | Clinical Summary ---
Author Organization [facility] Address [address] [place] [address] Care Team Providers Care Reeling And Tubing Machine Operator Name Role Phone Aline Miller MD Unavailable [phone] Lv Rain MD Primary Care Provider [phone] Allergies Active Allergy Reactions Criticality Noted Date [...] 1 tablet by mouth daily Active omega 3-bjv-los-fish oil (Fish OiL) 1,000 mg (120 mg-180 mg) capsule Take 1 capsule (1,000 mg total) by mouth daily Active Active Problems No known active problems Encounters Date Type Department Care Team Description 02/08/2025 Orders Only [facility] Cardiology [address] [place] [address] Bety Dockery MD from Last 3 Months Surgical History Surgery Date Site/Laterality Comments APPENDECTOMY [...] Breast Cancer Screening-Mammogram 03/13/2025 03/13/2024 Influenza Vaccine (#1) 2025 3, 05/04/2022, 06/10/2021, Additional history exists Zoster Vaccine Completed 01/18/2023, 11/16/2022 Pneumococcal vaccine <65 Aged Out No longer eligible based on patient's age to complete this topic Procedures Procedure Name Priority Date/Time Associated Diagnosis Comments CARDIOLOGY DOCUMENT SCAN Routine 02/05/2025 8:59 AM CDT CARDIOLOGY DOCUMENT SCAN Routine 02/05/2025 8:55 AM CDT CARDIOLOGY DOCUMENT SCAN Routine 01/28/2025 8:38 AM CDT DIAGNOSTIC MAMMOGRAM BILATERAL W BIBI Schedule Routine, Read Routine (OP Routine) 03/13/2024 1:38 PM CDT Mass of right breast, unspecified quadrant from Last 3 Months or Most Recently Relevant to Health Maintenance Results * Cardiology Document Scan (02/05/2025 8:59 AM CDT) Anatomical Region Laterality Modality Other Keerthi Howard MD [facility] PRO CEDURES Final Result * Cardiology Document Scan (02/05/2025 8:55 AM CDT) Anatomical Region Laterality Modality Other us Keerthi Howard MD CV CARDIAC SERVICES PRO CEDURES Final Result * Cardiology Document Scan (01/28/2025 8:38 AM CDT) Anatomical Region Laterality Modality Other Bety Dockery MD [facility] CARDIAC SERVICES PROCEDU RES Final Result * Diagnostic Mammogram Bilateral W Bibi (03/13/2024 [...] RIGHT breast was performed by a trained records custodian and by Dr. Aldana. BREAST PARENCHYMAL COMPOSITION: [...] RIGHT breast was performed by a trained records custodian and by Dr. Aldana. BREAST PARENCHYMAL COMPOSITION: [...] Most Recently Relevant to Health Maintenance Insurance [facility] PPO [facility] HMO/PPO Address: [address] [address] [facility] PPO Care Teams Reeling And Tubing Machine Operator Relationship Specialty Start Date End Date Lv Rain MD [address] [facility] [place], [place] [id number] PCP - General Family Medicine 12/30/23 Aline Miller MD [facility] [address] [phone] Referring Physician Gynecology 12/27/23
--- OUTSIDE RECORDS SUMMARY | 2025-03-18 13:22 | XMS_ITS | Encounter Summary ---
Author Organization [facility] Address [address] [place] [address] Care Team Providers Care Track Broom Operator Name Role Phone Unavailable Primary Care Provider Unavailabl e Reason for Visit * Diagnostic Imaging (Routine) - Closed Specialty Diagnoses / Procedures Referred By Adonis mitchell Referred To Contact Procedures Breast Imaging Screening Outside Reference Kylee Morales NP Phone: tel: fax: Referral ID Status Reason Start Date Expiration Date Visits Re quested Visits Authorized [id number] Closed 01/07/2024 02/05/2025 1 1 Encounter Details Date Type Department Care Team (Late st Contact Info) Description 04/29/2020 Hospital Encounter [facility] [address] [place] [id number] Social History Tobacco Use Types Packs/Day Years [...] Outside Reference (04/29/2020 12:00 AM CDT) Impressions RAD_MAMMO_[facility] - 01/07/2024 4:21 PM CDT These images are for Reference purposes only and have not been reviewed by [facility] Radiology. There will be no report generated by a [facility] Radiologist. Narrative RAD_MAMMO_[facility] - 01/07/2024 4:21 PM CDT EXAMINATION: Images For Reference Purposes Only us Kylee Morales NP IMG MAMMO PROCEDURES Final Result [facility]MAM[facility] documented in this encounter Visit Diagnoses Not on filedocumented in this encounter
--- NOTE | 2025-03-18 14:00 | NEURO_ITS ---
Clinical note Patient is 54 years old with history of right footdrop which started recently. Patient also has history of diabetes mellitus and she has lost significant amount of weight over the last 2-3 years. She also has history of lower back pain. on examination the patient has significant weakness of dorsiflexion and eversion of the right foot. Summary of findings: 1. Right peroneal motor over extensor digitorum brevis was absent. Right peroneal motor response over tibialis anterior shows a very low amplitude response and decreased conduction velocity across the fibular head. 2. Left peroneal motor distal latency was normal however amplitude was markedly decreased. Conduction velocities were decreased. Left tibial motor study also performed over tibialis anterior which was amplitude was moderately decreased but the conduction velocity were normal. 3. Left and right superficial peroneal sensory responses were absent. 4. Left and right tibial motor distal latencies were normal however amplitude where towards the lower end of the normal range. Conduction velocity is slightly decreased on right side and normal on the left side. 5. Left and Right medial plantar sensory distal latencies were moderately prolonged however the amplitude was normal on the left and decreased mildly decreased on the right side. Conduction velocity significant decreased. Left and right sural sensory distal latencies were normal however amplitude was mildly decreased on the right and normal on the left side. 6. left and right H reflex latencies were normal however amplitudes are moderately decreased. 7. EMG examination is performed which shows significant denervation changes in the right peroneus longus and anterior tibial muscles. Motor unit recruitment was significant decrease in the peroneus longus and no recruitment was seen in the tibialis anterior per. Remainder of muscles including paraspinal muscles in the L3-S1 distribution did not show any denervation changes. Motor unit amplitude and duration are shown below. Impression: 1. 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 significant denervation changes were seen in peroneus longus and tibialis anterior. Motor unit recruitment was significant decrease in the peroneus longus and no recruitment was noted in the right tibialis anterior. A follow-up study in 6 months should be considered. 2. Patient also has concurrent left common peroneal motor neuropathy however at this time no denervation changes were seen in common peroneal nerve distribution. Patient should be closely followed up for the same. 3. Sensory studies raise possibility of mild sensory neuropathy however overall findings are borderline. A follow-up study in future may be helpful No supportive evidence for L3-S1 radiculopathy at this time. Lauren Griffin MD, FAAN, FAANEM Neurology and electrodiagnostic Medicine Nerve Conduction Studies Motor Nerve Results ? Latency Amplitude F-Lat Segment Distance CV Comment Site (ms) (mV) (ms) (cm) (m/s) Left Dp Branch Fibular (TA) Motor Fib Head 2.6 1.54 Pop Fossa 4.3 1.60 Pop Fossa-Fib Head 75 44 Right Dp Branch Fibular (TA) Motor Fib Head 6.3 0.07 Pop Fossa 9.4 0.09 Pop Fossa-Fib Head 80 26 Left Peroneal (EDB) Motor Ankle 4.9 0.25 Bel Fib Head 12.7 0.20 Bel Fib Head-Ankle 290 37 Pop Fossa 14.9 0.21 Pop Fossa-Bel Fib Head 75 34 Right Peroneal (EDB) Motor Ankle NR NR Bel Fib Head NR NR Bel Fib Head-Ankle 260 NR Pop Fossa NR NR Pop Fossa-Bel Fib Head 80 NR Left Tibial (AHB) Motor Ankle 5.6 4.8 Knee 15.4 3.0 Knee-Ankle 390 40 Right Tibial (AHB) Motor Ankle 3.5 6.7 Knee 13.9 4.3 Knee-Ankle 390 38 Sensory Nerve Results ? Latency (Peak) Amplitude (P-P) Segment Distance CV Comment Site (ms) (?V) (cm) (m/s) Left Medial Plantar (Ortho) Sensory [place]-Med [place] 5.9 17 [place] 105 18 Right Medial Plantar (Ortho) Sensory [place] 6.3 7 [place] 90 14 Left Superficial Peroneal Sensory 14 cm-Ankle NR NR 14 cm-Ankle 100 NR Right Superficial Peroneal Sensory 14 cm-Ankle NR NR 14 cm-Ankle 100 NR Left Sural Sensory Calf-Lat Mall 4.0 10 Calf-Lat Mall 120 30 Right Sural Sensory Calf-Lat Mall 3.8 8 Calf-Lat Mall 120 32 H-Reflex Results ? M-Lat H Lat H Peak-Peak Amp M Peak-Peak Amp H-M Lat Site (ms) (ms) mV mV (ms) Left Tibial H-Reflex Pop Fossa 6.7 32.4 2.9 5.0 25.7 Right Tibial H-Reflex Pop Fossa 5.9 31.8 1.70 0.93 25.9 Electromyography ?Side Muscle Nerve Ins Act Fibs Psw Amp Dur Recrt Comment Right Fibularis Long Sup Br Fibular Nml 3+ 3+ Incr Nml +3 Right Semimembranosus Sciatic Nml Nml Nml Nml Nml Nml Right BicepsFemS Sciatic Nml Nml Nml Nml Nml Nml Right Gastroc Tibial Nml Nml Nml Nml Nml Nml Left GluteusMax InfGluteal Nml Nml Nml Nml Nml Nml Right RectFemoris Femoral Nml Nml Nml Nml Nml Nml Right TensorFascLat SupGluteal Nml Nml Nml Nml Nml Nml Left BicepsFemS Sciatic Nml Nml Nml Nml Nml Nml Left Semimembranosus Sciatic Nml Nml Nml Nml Nml Nml Left AntTibialis Dp Br Fibular Nml Nml Nml Nml Nml Nml Left Gastroc Tibial Nml Nml Nml Nml Nml Nml Left VastusMed Femoral Nml Nml Nml Nml Nml Nml Left RectFemoris Femoral Nml Nml Nml Nml Nml Nml Left L5 Parasp Rami Nml Nml Nml Nml Nml Nml Left TensorFascLat SupGluteal Nml Nml Nml Nml Nml Nml Right VastusMed Femoral Nml Nml Nml Nml Nml Nml Left L4 Parasp Rami Nml Nml Nml Nml Nml Nml Right L4 Parasp Rami Nml Nml Nml Nml Nml Nml Left L3 Parasp Rami Nml Nml Nml Nml Nml Nml Right L5 Parasp Rami Nml Nml Nml Nml Nml Nml Right L3 Parasp Rami Nml Nml Nml Nml Nml Nml Right AntTibialis Dp Br Fibular Nml 3+ 3+ Nml >12ms None
== END 2025-03-18 13:19 | disposition home or self-care (01) ==
LOC: ANHNEURO 13:19
PROVIDERS: PCP Family Medicine; Visit Provider Psychiatry & Neurology Neurology
DX: M21.371 Foot drop, right foot (principal)
CPT/HCPCS: 95886; 95910